=== PATIENT | female | born 1965 | race Caucasian/White ===

== ENCOUNTER 2024-03-03 21:50 | Inpatient (IN) | payer MEDICARE, MEDICAID, SELFPAY ==
--- NOTE | ~2024-03-03 | CT_ITS ---
EXAMINATION: CT ANGIOGRAM CHEST CLINICAL INFORMATION: Hypoxia. Evaluate for pulmonary embolism. COMPARISON: None available. TECHNIQUE: Multiple axial images were obtained through the chest after the administration of 65 mL of Omnipaque 350 intravenous contrast. Extensive vascular post-processing including two-dimensional and three-dimensional reformatted images were created and reviewed on an independent workstation. This CT examination was performed using dose optimization techniques as appropriate, variously including the following: *Automated exposure control *Adjustment of mA and/or kV according to patient size (this includes techniques or standardized protocols for targeted exams where dose is matched to indication/reason for exam; i.e. extremities or head) *Use of iterative reconstruction technique DLP: 365 mGy-cm FINDINGS: QUALITY OF STUDY/CONTRAST BOLUS: Satisfactory. PULMONARY ARTERIES: No pulmonary emboli. THORACIC AORTA: No thoracic aortic dilatation or dissection. LUNG: No focal consolidation, nodules or masses. PLEURA: No pleural effusion or pneumothorax. MEDIASTINUM: Normal heart size. No pericardial effusion. No hilar or mediastinal lymphadenopathy. No evidence of septal bowing or right heart strain. CORONARY ARTERY CALCIFICATION: None visualized on this study. CHEST WALL/AXILLA: No axillary or internal mammary lymphadenopathy. OSSEOUS STRUCTURES: No acute or suspicious osseous abnormality. UPPER ABDOMEN: Hepatic parenchymal hypoattenuation, consistent with diffuse steatosis. The remaining visualized upper abdominal structures are grossly unremarkable. No reflux of contrast into the hepatic veins to suggest elevated right heart pressures. CT/CT angio chest PE protocol IMPRESSION: 1. No CT angiographic evidence of acute pulmonary embolism. 2. No pulmonary nodule, mass, or airspace consolidation. 3. Hepatic steatosis. VTE: Negative. Fleischner guidelines were followed. Electronically signed by: Rodrigo Sharma MD 03/08/2024 02:32 PM [facility]
[2024-03-03 21:54] VITALS: BP 186/90; PULSE 104; RESP 19; TEMP 36.4; O2SAT 94
[2024-03-03 21:55] VITALS: BP 131/84; PULSE 109; O2SAT 93
[2024-03-03 22:01] VITALS: BP 143/96; PULSE 107; RESP 20; TEMP 37.2; O2SAT 98; BMI 36.9
--- NOTE | 2024-03-03 22:54 | PC.NURSE ---
update: sitter at bedside, pt changed over into pod attire, belongings removed from pt. Gema galvez given report and updated on pt status. Pt was able to mumble that she has been medicated all day with ativan. Phenobarb not given per report from [facility]. via [facility] care team. pt is SI, wanting to to be with her son who passed one year ago from Fentanly overdose. Pt drinking heavy and tried to detox, new dx of liver issues and pt states she just wants to go now.
[2024-03-03 22:55] LABS: MANUAL DIFF FLAG NO
[2024-03-03 22:56] LABS: Basophils Absolute Auto 0.1 X10*3/uL (0.0-0.2); Basophils Percent Auto 0.7 % (0-2); Eosinophils Absolute Auto 0.2 X10*3/uL (0.0-0.4); Eosinophils Percent Auto 2.4 % (0-4); Hematocrit 48.5 % (37.0-47.0); Hemoglobin 16.7 g/dl (12.0-16.0); Imm Gran Abs Auto 0.02 X10*3/uL (0.00-0.03); Imm Gran Pct Auto 0.2 % (0.0-0.4); Lymphocytes Absolute Auto 1.8 X10*3/uL (1.2-4.9); Mean Corpuscular HGB Conc 34.4 g/dl (31.0-35.0); Mean Corpuscular Hemoglobin 34.2 pg (27.0-33.0); Mean Corpuscular Volume 99.4 fL (80.0-98.0); Mean Platelet Volume 9.6 fL (9.4-12.3); Monocytes Absolute Auto 0.8 X10*3/uL (0.1-1.2); Monocytes Percent Auto 8.8 % (2-11); Neutrophils Absolute Auto 5.7 x10*3/uL (2.0-8.3); Neutrophils Percent Auto 66.9 % (45-73); Platelet Count 250 X10*3/uL (160-400); Red Blood Count 4.88 X10*6/uL (4.20-5.50); Red Cell Distribution Width 12.4 % (11.0-16.0); White Blood Count 8.5 X10*3/uL (4.8-10.8)
--- NOTE | 2024-03-03 23:10 | PC.NURSE ---
hand off to lenny castillo. sitter remains at bedside
[2024-03-03 23:11] LABS: Alanine Aminotransferase 102 U/L (0-31); Albumin Level 4.4 g/dL (3.5-5.0); Alkaline Phosphatase 105 U/L (39-117); Anion Gap 16 (12-20); Aspartate Amino Transferase 59 U/L (5-31); Bilirubin Direct 0.2 mg/dL (0.0-0.5); Bilirubin Total 0.6 mg/dL (0.0-1.0); Blood Urea Nitrogen 13 mg/dL (9-16); Calcium 9.3 mg/dL (8.4-10.2); Carbon Dioxide 24 mmol/L (22-29); Chloride 107 mmol/L (96-108); Creatinine Clr Calc Pharmacy 98.3; Estimated Glomerular Filt Rate > 60; Ethanol < 10 mg/dL; Glucose Random 125 mg/dL (60-115); Potassium 4.1 mmol/L (3.3-5.1); Sodium 143 mmol/L (135-145); Total Protein 7.3 g/dL (6.5-8.0)
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
--- OUTSIDE RECORDS SUMMARY | 2024-03-03 23:32 | XMS_ITS | Continuity of Care Document ---
Author Organization [facility] Address [address] [place] [address]- Care Team Providers Care Press Tender Name Role Phone Gen BROWN, Claribel Primary Care Physician [phone] Encounter [facility] Date(s): 01/22/22 - 02/21/22 [facility] [address] [place] [address]- Allergies, Adverse Reactions, Alerts No Known Allergies [...] 11 Refills, Maintenance, 08/22/20 13:04:00 EDT, Solution, [facility]/pharmacy #[id number], 3 mL Inhalation 4 times a day,PRN:Whe... Start Date: 08/22/20 Status: Ordered Breo Ellipta 100 mcg-25 mcg/inh inhalation powder 1 puffs, Inhalation, Daily, [employer]WARDS., # 60 each, 1 Refills, [id number], 30, INHALE 1 PUFF BY MOUTH EVERY DAY. [employer]WARDS., 170, cm, 03/07/21 11:09:00 EDT, Height, 107.3, kg, 06/22/20 13:29:00 EST, Dry Weight Start Date: 11/12/21 Status: Ordered diclofenac 1% topical gel = 2 Gm, Topically, 2 times a day, # 100 Gm, 2 Refills, 01/22/22 17:37:00 EDT, [facility] #[id number], 24, 2 Gm Topically 2 times a day, 170, cm, 03/07/21 11:09:00 EDT, Height, 107.3, kg, 06/22/20 13:29:00 EST, Dry Weight Start Date: 01/22/22 Status: Ordered duloxetine 30 mg oral enteric coated capsule 1 capsule = 30 mg, By Mouth, 2 times a day, do not crush or chew, # 180 capsule, 3 Refills, Maintenance, 02/19/22 14:28:00 EDT, [facility] #[id number], 170, cm, 03/07/21 11:09:00 EDT, Height, 107.3, kg, 06/22/20 13:29:00 EST, Dry Weight Start Date: 02/19/22 Status: Ordered famotidine 20 mg oral tablet 20 mg, 1, tablet, By Mouth, Daily, OV 5-6-20, # 30 tablet, Refills 5, Tot. Refills 5, Maintenance, 08/21/20 12:25:00 EDT, Route to Pharmacy Electronically, [facility]/pharmacy #[id number], 170, cm, 08/16/20 15:32:00 EDT, Height, 107.3, kg, 06/22/20 13:29:00 EST, D... Start Date: 08/21/20 Status: Ordered gabapentin 300 mg oral capsule 300 mg, 1, capsule, By Mouth, 3 times a day, # 270 capsule, Refills 1, Tot. Refills 1, Maintenance,08/21/21 14:14:00 EDT, Route to Pharmacy Electronically, [facility] #[id number], Partial fill upon patient request, 170, cm, 03/07/21 11:09:00 EDT... Start Date: 08/21/21 Status: Ordered gabapentin 300 mg oral capsule 300 mg, 1, capsule, By Mouth, 3 times a day, # 270 capsule, Refills 3, Tot. Refills 3, Maintenance,02/19/22 14:28:00 EDT, Route to Pharmacy Electronically, [facility] #[id number], Partial fill upon patient request, 170, cm, 03/07/21 11:09:00 EDT... Start Date: 02/19/22 Status: Ordered hydroxychloroquine 200 mg oral tablet 1, tablet, By Mouth, 2 times a day, # 60 tablet, Refills 5, Route to Pharmacy Electronically, [id number], 170, cm, 03/07/21 11:09:00 EDT, Height, 107.3, kg, 06/22/20 13:29:00 EST, Dry Weight Start Date: 12/12/21 Status: Ordered naloxone 4 mg/0.1 mL nasal spray = 4 mg, Naris, Right, Once, # 2 each, 0 Refills, Soft Stop, 05/20/18 8:45:10 EST Start Date: 05/20/18 Status: Ordered ProAir HFA 90 mcg/inh inhalation aerosol 2 puffs, Inhalation, Every 4 to 6 hours, PRN NEEDED FOR SHORTNESS OF BREATH OR WHEEZING, # 18 each, 1 Refills, [id number], 20, INHALE 2 PUFFS BY MOUTH EVERY 4 TO 6 HOURS NEEDED FOR SHORTNESS OF BREATH OR WHEEZING, 170, cm, 03/07/21 11:09:00... Start Date: 11/12/21 Status: Ordered risperiDONE 1 mg oral tablet 1 mg, 1, tablet, By Mouth, Daily, # 90 tablet, Refills 3, Tot. Refills 3, Maintenance, 02/19/22 14:27:00 EDT, Route to Pharmacy Electronically, [facility] #[id number], 170, cm, 03/07/21 11:09:00EDT, Height, 107.3, kg, 06/22/20 13:29:00 EST, Dry... Start Date: 02/19/22 Stop Date: 02/14/23 Status: Ordered Suboxone 8 mg-2 mg Sublingual Film 1 film, Sublingual, 3 times a day, dissolve under the tongue, # 90 film, 1 Refills, Maintenance, 02/08/22 13:04:00 EDT, [facility] #[id number], Partial fill upon patient request if the prescription is for a schedule II opioid drug. [facility] [id number],... Start Date: 02/08/22 Stop Date: 04/09/22 Status: Ordered Suboxone 8 mg-2 mg Sublingual Film 1 film, Sublingual, 3 times a day, dissolve under the tongue, # 90 film, 1 Refills, Maintenance, 12/10/21 14:40:00 EDT, [facility] #[id number], Partial fill upon patient request if the prescription is for a schedule II opioid drug. [facility] [id number],... Start Date: 12/10/21 Stop Date: 02/08/22 Status: Ordered Suboxone 8 mg-2 mg sublingual film 3 film, Sublingual, Daily, [id number], # 90 film, 1 Refills, Maintenance, 10/21/21 9:55:00 EDT, [facility] #[id number], 3 film Sublingual Daily,x30 days,Instr:[id number], 170, cm, 03/07/21 11:09:00 EDT, Height, 107.3, kg, 06/22/20 13:29:00 EST, Dry... Start Date: 10/21/21 Stop Date: 12/20/21 Status: Ordered traZODone 50 mg oral tablet 50 mg, 1, tablet, By Mouth, Daily at bedtime, PRN, as needed, # 90 tablet, Refills 3, Tot. Refills 3, Maintenance, Sleep, 02/19/22 14:27:00 EDT, Route to Pharmacy Electronically, [facility][id number], 170, cm, 03/07/21 11:09:00 EDT, Height, 107... Start Date: 02/19/22 Status: Ordered Vitamin D3 1000 intl units oral tablet 1 tablet = 1,000 International_Units, By Mouth, Daily, # 30 tablet, 11 Refills, Maintenance, 10/04/19 11:54:00 EDT, Tablet, [facility]/pharmacy #[id number], 163, cm, 10/04/19 11:27:00 EDT, Height, [...] on: 09/29/14 Sex Patient Care team information Personnel Name: Claribel Blevins NP Address: Address: [address] [place] [id number]
--- OUTSIDE RECORDS SUMMARY | 2024-03-03 23:32 | XMS_ITS | Continuity of Care Document ---
Author Organization [facility] [place] Address [address] [place] [address]- Care Team Providers Care Veneer Clipper Name Role Phone Angela BROWN, Robyn Martinez Primary Care Physician Encounter [facility] Date(s): 12/29/19 - 01/28/20 [facility] [place] [address] [place] [address]- [facility] Allergies, Adverse Reactions, Alerts Substance Reaction Severity [...]
--- OUTSIDE RECORDS SUMMARY | 2024-03-03 23:32 | XMS_ITS | Continuity of Care Document ---
Author Organization [facility] Primary Car e [place] Address [address] [place] [address]- Care Team Providers Care Carpet Inspector Name Role Phone Roxi BROWN, Compa Hall Primary Care Physician Encounter [facility] Date(s): 10/28/23 - 11/27/23 [facility] [place] [address] [place] [address]- Allergies, Adverse Reactions, Alerts No Known Allergies [...] 11 Refills, Maintenance, 03/25/23 12:53:00 EST, Solution, [email or web address] #[id number], 3 mL Inhalation 4 times a da... Start Date: 03/25/23 Status: Ordered amoxicillin-clavulanate 875 mg-125 mg oral tablet 1 tablet, By Mouth, Every 12 hours, for 10 days, # 20 tablet, 0 Refills, Acute 12/06/23 7:37:00 EDT, 11/26/23 7:37:00 EDT, Tablet, [email or web address] #[id number], Partial fill upon patient request if the prescription is for a schedule II opioid drug., 17... Start Date: 11/26/23 Stop Date: 12/06/23 Status: Ordered Breo Ellipta 100 mcg-25 mcg/inh inhalation powder 1 puffs, Inhalation, Daily, [employer]., # 1 each, 3 Refills, 11/21/22 10:33:00 EDT, [facility] #[id number], 1 puffs Inhalation Daily,Instr:[employer]WAR[employer]., 170, cm, 11/19/2313:19:00 EDT, Height, 94.4, kg, 11/08/22 14:35:00 E... Start Date: 11/21/22 Status: Ordered calcium (as citrate)-vitamin D 315 mg-250 intl units oral tablet 2 tablet, By Mouth, 2 times a day, # 120 tablet, 11 Refills, Maintenance, 10/27/23 11:47:00 EDT, Tablet, [facility] #[id number], Partial fill upon patient request if the [...] 09/18/23 10:13:00 EDT, Route to Pharmacy Electronically, [facility] #[id number], Partial... Start Date: 09/18/23 Stop Date: 03/16/24 Status: Ordered duloxetine 30 mg oral enteric coated capsule 1 capsule = 30 mg, By Mouth, 2 times a day, do not crush or chew, # 180 capsule, 3 Refills, Maintenance, 12/20/22 17:50:00 EDT, [facility] #[id number], 170, cm, 12/06/22 0:43:00 EDT, Height, 94.4, kg, 11/08/22 14:35:00 EDT, Dry Weight Start Date: 12/20/22 Status: Ordered gabapentin 300 mg oral capsule 300 mg, 1, capsule, By Mouth, 3 times a day, # 270 capsule, Refills 1, Tot. Refills 1, Maintenance,08/11/23 9:29:00 EDT, Route to Pharmacy Electronically, [facility] #[id number], Partial fill upon patient request, 170, cm, 07/23/23 16:32:00 EDT,... Start Date: 08/11/23 Status: Ordered hydroxychloroquine 200 mg oral tablet 1, tablet, By Mouth, 2 times a day, # 60 tablet, Refills 5, Tot. Refills 5, 04/15/23 13:55:00 EST, Route to Pharmacy Electronically, [facility] #[id number], 170, cm, 01/31/23 10:06:00 EDT, Height, 94.4, kg, 11/08/22 14:35:00 EDT, Dry Weight Start Date: 04/15/23 Status: Ordered hydrOXYzine hydrochloride 25 mg oral tablet See Instructions, TAKE 1 TABLET BY MOUTH TWICE DAILY NEEDED FOR ANXIETY, # 60 tablet, 5 Refills,Maintenance, 09/18/23 10:13:00 EDT, [facility] #[id number], 170, cm, 07/23/23 16:32:00 EDT, Height, 100, kg, 04/20/23 21:48:00 EST, Dry Weight Start Date: 09/18/23 Status: Ordered NEBULIZER MACHINE AND TUBING NEBULIZER MACHINE AND TUBING, See Instructions, PRN Wheezing/Shortness of Breath, # 1 each, Refills0, Tot. Refills 0, Maintenance, USE NEEDED FOR WHEEZING DX:, 06/17/23 15:49:00 EST, Supply Start Date: 06/17/23 Status: Ordered PHENobarbital 30 mg oral tablet 1 tablet = 30 mg, By Mouth, 2 times a day, # 60 tablet, 1 Refills, Maintenance, 11/20/23 16:42:00 EDT, Tablet, [facility] #[id number], IF NOT COVERED, please use [employer] coupon and allow pt to pay OOP; $9.09; ASHLEY [id number]; [facility]; Group [address]; Membe... Start Date: 11/20/23 Status: Ordered predniSONE 10 mg oral tablet See Instructions, 4 tablets for 3 days 3 tabs for 3 days 2 tabs for 3 days 1 tab for 3 days, # 30 tablet, 0 Refills, Acute 12/11/23 7:37:00 EDT, 11/26/23 7:37:00 EDT, [facility] #[id number], Partial fill upon patient request if the prescriptio... Start Date: 11/26/23 Stop Date: 12/11/23 Status: Ordered risperiDONE 1 mg oral tablet 1 mg, 1, tablet, By Mouth, Daily, # 90 tablet, Refills 1, Tot. Refills 1, Maintenance, 08/11/23 9:29:00 EDT, Route to Pharmacy Electronically, [facility] #[id number], 170, cm, 07/23/23 16:32:00 EDT, Height, 100, kg, 04/20/23 21:48:00 EST, Dry Weight Start Date: 08/11/23 Stop Date: 02/07/24 Status: Ordered tiZANidine 2 mg oral tablet 2 mg, 1, tablet, By Mouth, 3 times a day, # 84 tablet, Refills 1, Tot. Refills 1, Maintenance, 09/08/23 18:10:00 EDT, Route to Pharmacy Electronically, [facility] #[id number], Partial fill upon patient request if the prescription is for a schedul... Start Date: 09/08/23 Stop Date: 11/03/23 Status: Ordered Trelegy Ellipta 200 mcg-62.5 mcg-25 mcg/inh inhalation powder 1 puffs, Inhalation, Daily, at the same time every day, # 3 each, 3 Refills, Maintenance, 07/23/23 16:56:00 EDT, Powder, [facility] #[id number], Partial fill upon patient request if the prescription is for a schedule II opioid drug., 1 puffs Inha... Start Date: 07/23/23 Stop Date: 07/17/24 Status: Ordered Ultram 50 mg oral tablet 1 tablet = 50 mg, By Mouth, Every 12 hours, PRN for pain, # 20 tablet, 0 Refills, Maintenance, 10/14/23 9:32:00 EDT, Tablet, [facility] #[id number], Partial fill upon patient request if the prescription is for a schedule II opioid drug., 170, cm,... Start Date: 10/14/23 Status: Ordered Ventolin HFA 108 mcg/inh inhalation aerosol with adapter 2 puffs, Inhalation, 4 times a day, PRN for wheezing, # 1 each, 3 Refills, Maintenance, 05/28/23 12:34:00 EST, Aerosol, [email or web address] #[id number], Partial fill upon patient request if the prescription is for a schedule II opioid drug., 170, cm, 04/04... Start Date: 05/28/23 Status: Ordered Voltaren Arthritis Pain 1% topical gel = 4 Gm, Topically, 4 times a day, # 480 Gm, 4 Refills, Maintenance, 07/24/23 14:31:00 EDT, [email or web address] #[id number], Partial fill upon patient request if the [...] Team Personnel Name: Compa Diane NP Position: [facility] Associate Professional Member Role: PCP Address: Address: [address] [facility] [place] [address]- Name: Blaire Iglesias [place] Position: [facility] Office Staff Member Role: Primary Care Nurse Name: Rhiannon Li [place] Position: [facility] Office Staff Member Role: Primary Care Nurse Name: Viral Jolly MD Position: [facility] Physician - Behavioral Health Member Role: Lifetime Consulting Physician Address: Address: [address] [place] [address]- Care Team Related Persons Name: MAIN MOSER Address: home [address] [place] [address] Name: JORGE GARCIA Address: home [address] [place] [address] Name: LOREE SIFUENTES
--- OUTSIDE RECORDS SUMMARY | 2024-03-03 23:32 | XMS_ITS | Continuity of Care Document ---
Author Organization [facility] Address [address] [place] [address]- Care Team Providers Care School Bus Monitor Name Role Phone Angela BROWN, Robyn Martinez Primary Care Physician Encounter [facility] Date(s): 03/22/20 - 05/18/20 [facility] [place] [address] [place] [address]- Attending Physician: [place], Milton Jones Allergies, Adverse Reactions, Alerts Substance Reaction Severity [...] 11 Refills, Maintenance, 05/31/19 17:40:00 EST, Solution, [facility]/pharmacy #[id number], 3 mL Inhalation 4 times a day,PRN:Whe... Start Date: 05/31/19 Status: Ordered Suboxone 8 mg-2 mg sublingual film 2.5 FILMS, Sublingual, Daily, [id number], # 75 film, 1 Refills, Maintenance, 04/26/20 16:38:00 EST, [facility] #[id number], 2.5 FILMS Sublingual Daily,Instr:[id number], 163, cm, 04/26/20 14:26:00 EST, Height, 105, kg, 03/01/19 17:26:00 EDT, Dry W... Start Date: 04/26/20 Status: Ordered Problem List Condition Effective Dates [...]
--- OUTSIDE RECORDS SUMMARY | 2024-03-03 23:32 | XMS_ITS | Continuity of Care Document ---
Author Organization [facility] Primary Car dennis Collinser Address [address] [place] [address]- Care Team Providers Care Manager Medical Name Role Phone Angela BROWN, Robyn Martinez Primary Care Physician Encounter [facility] Date(s): 06/29/20 - 07/29/20 [facility] [place] [address] [place] [address]- Attending Physician: AdmMaddie childs Admitting Physician: AdmtrMaddie Referring Physician: Admtr, Ar8 Allergies, Adverse Reactions, Alerts Substance Reaction Severity [...] a day,PRN:Whe... Start Date: 05/31/19 Status: Ordered ProAir HFA 90 mcg/inh inhalation aerosol 2 puffs, Inhalation, Every 4 to 6 hours, PRN NEEDED FOR WHEEZE FOR SHORTNESS OF BREATH, # 18 Unknown, 11 Refills, Maintenance, 06/19/20 16:07:00 EST, [id number], 20, INHALE 2 PUFFS BY MOUTH EVERY 4 TO 6 HOURS NEEDED FOR WHEEZE FOR SHORTNESS... Start Date: 06/19/20 Status: Ordered Suboxone 8 mg-2 mg sublingual film 2.5 FILMS, Sublingual, Daily, [id number], # 75 film, 1 Refills, Maintenance, 04/26/20 16:38:00 EST, [facility] #[id number], 2.5 FILMS Sublingual Daily,Instr:[id number], 163, cm, 04/26/20 14:26:00 EST, Height, 105, [...]
--- OUTSIDE RECORDS SUMMARY | 2024-03-03 23:32 | XMS_ITS | Continuity of Care Document ---
Author Organization [facility] Primary [place] Address [address] [place] [address]- Care Team Providers Care Cyber Incident Responder Name Role Phone Roxi ELECTRIC LOCOMOTIVE CRANE OPERATOR, Compa Hall Primary Care Physician Encounter [facility] Date(s): 04/07/23 - 05/07/23 [facility] [place] [address] [place] [address]- Allergies, Adverse Reactions, Alerts No Known Allergies [...] 11 Refills, Maintenance, 03/25/23 12:53:00 EST, Solution, [facility] #[id number], 3 mL Inhalation 4 times a da... Start Date: 03/25/23 Status: Ordered Breo Ellipta 100 mcg-25 mcg/inh inhalation powder 1 puffs, Inhalation, Daily, [employer]WARDS., # 1 each, 3 Refills, 11/21/22 10:33:00 EDT, [facility] #[id number], 1 puffs Inhalation Daily,Instr:RIN[employer] MOUTH AFTERWARDS., 170, cm, 11/19/2313:19:00 EDT, Height, 94.4, kg, 11/08/22 14:35:00 E... Start Date: 11/21/22 Status: Ordered cloNIDine 0.1 mg oral tablet 0.05 mg, 0.5, tablet, By Mouth, 4 times a day, PRN, stay hydrated, # 60 tablet, Refills 3, Tot. Refills 3, Maintenance, anxiety, panic, withdrawal symptoms, 03/25/23 12:52:00 EST, Route to Pharmacy Electronically, [facility] #[id number], Partial... Start Date: 03/25/23 Status: Ordered duloxetine 30 mg oral enteric coated capsule 1 capsule = 30 mg, By Mouth, 2 times a day, do not crush or chew, # 180 capsule, 3 Refills, Maintenance, 12/20/22 17:50:00 EDT, [facility] #[id number], 170, cm, 12/06/22 0:43:00 EDT, Height, 94.4, kg, 11/08/22 14:35:00 EDT, Dry Weight Start Date: 12/20/22 Status: Ordered gabapentin 300 mg oral capsule 300 mg, 1, capsule, By Mouth, 3 times a day, # 270 capsule, Refills 1, Tot. Refills 1, Maintenance,02/12/23 10:36:00 EDT, Route to Pharmacy Electronically, [facility] #[id number], Partial fill upon patient request, 170, cm, 01/31/23 10:06:00 EDT... Start Date: 02/12/23 Status: Ordered hydroxychloroquine 200 mg oral tablet 1, tablet, By Mouth, 2 times a day, # 60 tablet, Refills 5, Tot. Refills 5, 04/15/23 13:55:00 EST, Route to Pharmacy Electronically, [facility] #[id number], 170, cm, 01/31/23 10:06:00 EDT, Height, 94.4, kg, 11/08/22 14:35:00 EDT, Dry Weight Start Date: 04/15/23 Status: Ordered hydrOXYzine hydrochloride 25 mg oral tablet 1 tablet = 25 mg, By Mouth, Daily, PRN anxiety, for 30 days, # 30 tablet, 3 Refills, Acute 07/23/2411:53:00 EDT, 03/25/23 12:53:00 EST, Tablet, [facility] #[id number], Partial fill upon patientrequest if the prescription is for a schedule II op... Start Date: 03/25/23 Stop Date: 07/23/23 Status: Ordered risperiDONE 1 mg oral tablet 1 mg, 1, tablet, By Mouth, Daily, # 90 tablet, Refills 1, Tot. Refills 1, Maintenance, 02/12/23 10:37:00 EDT, Route to Pharmacy Electronically, [facility] #[id number], 170, cm, 01/31/23 10:06:00EDT, Height, 94.4, kg, 11/08/22 14:35:00 EDT, Dry W... Start Date: 02/12/23 Stop Date: 08/11/23 Status: Ordered Suboxone 8 mg-2 mg Sublingual Film 1 film, Sublingual, 3 times a day, dissolve under the tongue, # 90 film, 1 Refills, Maintenance, 03/14/23 10:32:00 EST, [facility] #[id number], Partial fill upon patient request if the prescription is for a schedule II opioid drug. [facility] [id number];... Start Date: 03/14/23 Stop Date: 05/13/23 Status: Ordered tiZANidine 2 mg oral tablet 2 mg, 1, tablet, By Mouth, 3 times a day, # 21 tablet, Refills 0, Tot. Refills 0, Maintenance, 04/22/23 9:05:00 EST, Route to Pharmacy Electronically, [facility] #[id number], Partial fill upon patient request if the prescription is for a schedule... Start Date: 04/22/23 Stop Date: 04/29/23 Status: Ordered Ventolin HFA 108 mcg/inh inhalation aerosol with adapter 2 puffs, Inhalation, 4 times a day, PRN for wheezing, # 18 Gm, 0 Refills, Maintenance, 04/17/23 15:20:00 EST, Aerosol, [facility] #[id number], Partial fill upon patient request if the prescription is for a schedule II opioid drug., 170, cm, 04/17... Start Date: 04/17/23 Status: Ordered Voltaren Arthritis Pain 1% topical gel = 4 Gm, Topically, 4 times a day, # 480 Gm, 4 Refills, Maintenance, 04/10/23 11:37:00 EST, [facility] #[id number], Partial fill upon patient request if the prescription is for a schedule II opioid drug., 4 Gm Topically 4 times a day, 170, cm, ... Start Date: 04/10/23 Status: Ordered [facility] PAIN RELIEVING LIDOCAINE PATCH 4% [facility] PAIN RELIEVING LIDOCAINE PATCH 4%, See Instructions, [...] Care team information Care Team Personnel Name: Roxi BROWN, Compa Hall Position: [facility] Associate Professional Member Role: PCP Address: Address: [address] [facility] [place] [address]- [place] Name: Blaire Iglesias [place] Position: [facility] RN Member Role: Primary Care Nurse Name: Rhiannon Gibson Position: [facility] RN Member Role: Primary Care Nurse Name: Viral Jolly MD Position: [facility] Physician - Behavioral Health Member Role: Lifetime Consulting Physician Address: Address: [address] [place] [id number]- Care Team Related Persons Name: MAIN MOSER Address: home [address] [place] [address] Name: JORGE GARCIA Address: [address] [place] [address] Name: LOREE SIFUENTES
--- OUTSIDE RECORDS SUMMARY | 2024-03-03 23:32 | XMS_ITS | Continuity of Care Document ---
Author Organization [facility] Primary [place] Address [address] [place] [address]- Care Team Providers Care Wrapper Leaf Inspector Name Role Phone Roxi BROWN, Compa Hall Primary Care Physician Encounter [facility] Date(s): 10/14/23 - 11/13/23 [facility] [place] [address] [place] [address]- Allergies, Adverse Reactions, Alerts No Known Allergies [...] 11 Refills, Maintenance, 03/25/23 12:53:00 EST, Solution, [facility] #[id number], 3 mL Inhalation 4 times a da... Start Date: 03/25/23 Status: Ordered Breo Ellipta 100 mcg-25 mcg/inh inhalation powder 1 puffs, Inhalation, Daily, RINSE MOUTH AFTERWARDS., # 1 each, 3 Refills, 11/21/22 10:33:00 EDT, [facility] #[id number], 1 puffs Inhalation Daily,Instr:RINSE MOUTH AFTERWARDS., 170, cm, 11/19/2313:19:00 EDT, Height, 94.4, kg, 11/08/22 14:35:00 E... Start Date: 11/21/22 Status: Ordered calcium (as citrate)-vitamin D 315 mg-250 intl units oral tablet 2 tablet, By Mouth, 2 times a day, # 120 tablet, 11 Refills, Maintenance, 10/27/23 11:47:00 EDT, Tablet, [facility] #[id number], Partial fill upon patient request if the [...] 09/18/23 10:13:00 EDT, Route to Pharmacy Electronically, [facility] #[id number], Partial... Start Date: 09/18/23 Stop Date: 03/16/24 Status: Ordered duloxetine 30 mg oral enteric coated capsule 1 capsule = 30 mg, By Mouth, 2 times a day, do not crush or chew, # 180 capsule, 3 Refills, Maintenance, 12/20/22 17:50:00 EDT, [facility] #[id number], 170, cm, 12/06/22 0:43:00 EDT, Height, 94.4, kg, 11/08/22 14:35:00 EDT, Dry Weight Start Date: 12/20/22 Status: Ordered gabapentin 300 mg oral capsule 300 mg, 1, capsule, By Mouth, 3 times a day, # 270 capsule, Refills 1, Tot. Refills 1, Maintenance,08/11/23 9:29:00 EDT, Route to Pharmacy Electronically, [facility] #[id number], Partial fill upon patient request, 170, cm, 07/23/23 16:32:00 EDT,... Start Date: 08/11/23 Status: Ordered hydroxychloroquine 200 mg oral tablet 1, tablet, By Mouth, 2 times a day, # 60 tablet, Refills 5, Tot. Refills 5, 04/15/23 13:55:00 EST, Route to Pharmacy Electronically, [facility] #[id number], 170, cm, 01/31/23 10:06:00 EDT, Height, 94.4, kg, 11/08/22 14:35:00 EDT, Dry Weight Start Date: 04/15/23 Status: Ordered hydrOXYzine hydrochloride 25 mg oral tablet See Instructions, TAKE 1 TABLET BY MOUTH TWICE DAILY NEEDED FOR ANXIETY, # 60 tablet, 5 Refills,Maintenance, 09/18/23 10:13:00 EDT, [facility] #[id number], 170, cm, 07/23/23 16:32:00 EDT, Height, 100, kg, 04/20/23 21:48:00 EST, Dry Weight Start Date: 09/18/23 Status: Ordered NEBULIZER MACHINE AND TUBING NEBULIZER MACHINE AND TUBING, See Instructions, PRN Wheezing/Shortness of Breath, # 1 each, Refills0, Tot. Refills 0, Maintenance, USE NEEDED FOR WHEEZING DX:, 06/17/23 15:49:00 EST, Supply Start Date: 06/17/23 Status: Ordered ofloxacin 0.3% ophthalmic solution 2 drops, Eyes, Both, 2 times a day, for 7 days, # 10 mL, 0 Refills, Acute 11/18/23 12:02:00 EDT, 11/11/23 12:02:00 EDT, Ophth Solution, [facility] #[id number], Partial fill upon patient request if the prescription is for a schedule II opioid drug... Start Date: 11/11/23 Stop Date: 11/18/23 Status: Ordered risperiDONE 1 mg oral tablet 1 mg, 1, tablet, By Mouth, Daily, # 90 tablet, Refills 1, Tot. Refills 1, Maintenance, 08/11/23 9:29:00 EDT, Route to Pharmacy Electronically, [facility] #[id number], 170, cm, 07/23/23 16:32:00 EDT, Height, 100, kg, 04/20/23 21:48:00 EST, Dry Weight Start Date: 08/11/23 Stop Date: 02/07/24 Status: Ordered Suboxone 8 mg-2 mg Sublingual Film 1 film, Sublingual, 3 times a day, for 14 days, dissolve under the tongue, # 42 film, 0 Refills, Hard Stop 11/25/23 9:01:00 EDT, 11/11/23 9:01:00 EDT, [facility] #[id number], Partial fill upon patient request if the prescription is for a schedule... Start Date: 11/11/23 Stop Date: 11/25/23 Status: Ordered tiZANidine 2 mg oral tablet 2 mg, 1, tablet, By Mouth, 3 times a day, # 84 tablet, Refills 1, Tot. Refills 1, Maintenance, 09/08/23 18:10:00 EDT, Route to Pharmacy Electronically, [facility] #[id number], Partial fill upon patient request if the prescription is for a schedul... Start Date: 09/08/23 Stop Date: 11/03/23 Status: Ordered Trelegy Ellipta 200 mcg-62.5 mcg-25 mcg/inh inhalation powder 1 puffs, Inhalation, Daily, at the same time every day, # 3 each, 3 Refills, Maintenance, 07/23/23 16:56:00 EDT, Powder, [facility] #[id number], Partial fill upon patient request if the prescription is for a schedule II opioid drug., 1 puffs Inha... Start Date: 07/23/23 Stop Date: 07/17/24 Status: Ordered Ultram 50 mg oral tablet 1 tablet = 50 mg, By Mouth, Every 12 hours, PRN for pain, # 20 tablet, 0 Refills, Maintenance, 10/14/23 9:32:00 EDT, Tablet, [facility] #[id number], Partial fill upon patient request if the prescription is for a schedule II opioid drug., 170, cm,... Start Date: 10/14/23 Status: Ordered Ventolin HFA 108 mcg/inh inhalation aerosol with adapter 2 puffs, Inhalation, 4 times a day, PRN for wheezing, # 1 each, 3 Refills, Maintenance, 05/28/23 12:34:00 EST, Aerosol, [facility] #[id number], Partial fill upon patient request if the prescription is for a schedule II opioid drug., 170, cm, 04/04... Start Date: 05/28/23 Status: Ordered Voltaren Arthritis Pain 1% topical gel = 4 Gm, Topically, 4 times a day, # 480 Gm, 4 Refills, Maintenance, 07/24/23 14:31:00 EDT, [facility] #[id number], Partial fill upon patient request if the prescription is for a schedule II opioid drug., 4 Gm Topically 4 times a day, 170, cm, ... Start Date: 07/24/23 Status: Ordered [facility] PAIN RELIEVING LIDOCAINE PATCH 4% WALAorTx PAIN RELIEVING LIDOCAINE PATCH 4%, See Instructions, [...] Personnel Name: Roxi BROWN, Compa Hall Position: [facility] PCO Associate Professional Member Role: PCP Address: Address: [address] [facility] [place] [address]- [place] Name: Blaire Iglesias [place] Position: [facility] Amb Office Staff Member Role: Primary Care Nurse Name: Rhiannon Li [place] Position: [facility] Office Staff Member Role: Primary Care Nurse Name: Viral Jolly MD Position: [facility] Physician - Behavioral Health Member Role: Lifetime Consulting Physician Address: Address: [address] [place] [address]- Care Team Related Persons Name: MAIN MOSER Address: home [address] [place] [address] Name: JORGE GARCIA Address: home [address] [place] [address] Name: LOREE SIFUENTES
--- OUTSIDE RECORDS SUMMARY | 2024-03-03 23:32 | XMS_ITS | Continuity of Care Document ---
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 Start Date: 06/19/20 Status: Ordered Suboxone 8 mg-2 mg sublingual film 2.5 FILMS, Sublingual, Daily, [id number], # 75 film, 1 Refills, Maintenance, 04/26/20 16:38:00 EST, [facility] #[id number], 2.5 FILMS Sublingual Daily,Instr:[id number], 163, cm, 04/26/20 14:26:00 EST, Height, 105, [...]
--- OUTSIDE RECORDS SUMMARY | 2024-03-03 23:33 | XMS_ITS | Continuity of Care Document ---
Author Organization [facility] [place] Address [address] [place] [address]- Care Team Providers Care Wick Tender Name Role Phone Fine RAT CULTURIST, Compa Hall Primary Care Physician Encounter [facility] Date(s): 11/12/23 - 12/12/23 [facility] [place] [address] [place] [address]- Attending Physician: Admnaz, Maddie Admitting Physician: Admtr, [id number] Referring Physician: Admtr, Ar8 Allergies, Adverse Reactions, Alerts No Known Allergies [...] 11 Refills, Maintenance, 03/25/23 12:53:00 EST, Solution, [facility] #[id number], 3 mL Inhalation 4 times a da... Start Date: 03/25/23 Status: Ordered Breo Ellipta 100 mcg-25 mcg/inh inhalation powder 1 puffs, Inhalation, Daily, RINSE MOUTH AFTERWARDS., # 1 each, 3 Refills, 11/21/22 10:33:00 EDT, [facility] #[id number], 1 puffs Inhalation Daily,Instr:RINSE MOUTH AFTERWARDS., 170, cm, 11/19/2313:19:00 EDT, Height, 94.4, kg, 11/08/22 14:35:00 E... Start Date: 11/21/22 Status: Ordered calcium (as citrate)-vitamin D 315 mg-250 intl units oral tablet 2 tablet, By Mouth, 2 times a day, # 120 tablet, 11 Refills, Maintenance, 10/27/23 11:47:00 EDT, Tablet, [facility] #[id number], Partial fill upon patient request if the [...] 09/18/23 10:13:00 EDT, Route to Pharmacy Electronically, [facility] #[id number], Partial... Start Date: 09/18/23 Stop Date: 03/16/24 Status: Ordered duloxetine 30 mg oral enteric coated capsule 1 capsule = 30 mg, By Mouth, 2 times a day, do not crush or chew, # 180 capsule, 3 Refills, Maintenance, 12/20/22 17:50:00 EDT, [facility] #[id number], 170, cm, 12/06/22 0:43:00 EDT, Height, 94.4, kg, 11/08/22 14:35:00 EDT, Dry Weight Start Date: 12/20/22 Status: Ordered gabapentin 300 mg oral capsule 300 mg, 1, capsule, By Mouth, 3 times a day, # 270 capsule, Refills 1, Tot. Refills 1, Maintenance,08/11/23 9:29:00 EDT, Route to Pharmacy Electronically, [facility] #[id number], Partial fill upon patient request, 170, cm, 07/23/23 16:32:00 EDT,... Start Date: 08/11/23 Status: Ordered hydroxychloroquine 200 mg oral tablet 1, tablet, By Mouth, 2 times a day, # 60 tablet, Refills 5, Tot. Refills 5, 04/15/23 13:55:00 EST, Route to Pharmacy Electronically, [facility] #[id number], 170, cm, 01/31/23 10:06:00 EDT, Height, 94.4, kg, 11/08/22 14:35:00 EDT, Dry Weight Start Date: 04/15/23 Status: Ordered hydrOXYzine hydrochloride 25 mg oral tablet See Instructions, TAKE 1 TABLET BY MOUTH TWICE DAILY NEEDED FOR ANXIETY, # 60 tablet, 5 Refills,Maintenance, 09/18/23 10:13:00 EDT, [facility] #[id number], 170, cm, 07/23/23 16:32:00 EDT, Height, 100, kg, 04/20/23 21:48:00 EST, Dry Weight Start Date: 09/18/23 Status: Ordered NEBULIZER MACHINE AND TUBING NEBULIZER MACHINE AND TUBING, See Instructions, PRN Wheezing/Shortness of Breath, # 1 each, Refills0, Tot. Refills 0, Maintenance, USE NEEDED FOR WHEEZING DX:, 06/17/23 15:49:00 EST, Supply Start Date: 06/17/23 Status: Ordered NuLYTELY Lemon Elem oral powder for reconstitution 240 mL, By Mouth, Every 10 minutes, # 1 each, 0 Refills, Maintenance, 12/03/23 9:52:00 EDT, REC Powder, [facility] #[id number], Partial fill upon patient request if the prescription is for a schedule II opioid drug., 170, cm, 11/26/23 7:18:00 EDT... Start Date: 12/03/23 Status: Ordered PHENobarbital 30 mg oral tablet 1 tablet = 30 mg, By Mouth, 2 times a day, # 60 tablet, 1 Refills, Maintenance, 11/20/23 16:42:00 EDT, Tablet, [facility] #[id number], IF NOT COVERED, please use [employer] coupon and allow pt to pay OOP; $9.09; ASHLEY [id number]; [employer]; [employer] [address]; Membe... Start Date: 11/20/23 Status: Ordered risperiDONE 1 mg oral tablet 1 mg, 1, tablet, By Mouth, Daily, # 90 tablet, Refills 1, Tot. Refills 1, Maintenance, 08/11/23 9:29:00 EDT, Route to Pharmacy Electronically, [facility] #[id number], 170, cm, 07/23/23 16:32:00 EDT, Height, 100, kg, 04/20/23 21:48:00 EST, Dry Weight Start Date: 08/11/23 Stop Date: 02/07/24 Status: Ordered tiZANidine 2 mg oral tablet 2 mg, 1, tablet, By Mouth, 3 times a day, # 84 tablet, Refills 1, Tot. Refills 1, Maintenance, 09/08/23 18:10:00 EDT, Route to Pharmacy Electronically, [facility] #[id number], Partial fill upon patient request if the prescription is for a schedul... Start Date: 09/08/23 Stop Date: 11/03/23 Status: Ordered Trelegy Ellipta 200 mcg-62.5 mcg-25 mcg/inh inhalation powder 1 puffs, Inhalation, Daily, at the same time every day, # 3 each, 3 Refills, Maintenance, 07/23/23 16:56:00 EDT, Powder, [facility] #[id number], Partial fill upon patient request if the prescription is for a schedule II opioid drug., 1 puffs Inha... Start Date: 07/23/23 Stop Date: 07/17/24 Status: Ordered Ultram 50 mg oral tablet 1 tablet = 50 mg, By Mouth, Every 12 hours, PRN for pain, # 20 tablet, 0 Refills, Maintenance, 10/14/23 9:32:00 EDT, Tablet, [facility] #[id number], Partial fill upon patient request if the prescription is for a schedule II opioid drug., 170, cm,... Start Date: 10/14/23 Status: Ordered Ventolin HFA 108 mcg/inh inhalation aerosol with adapter 2 puffs, Inhalation, 4 times a day, PRN for wheezing, # 1 each, 3 Refills, Maintenance, 05/28/23 12:34:00 EST, Aerosol, [facility] #[id number], Partial fill upon patient request if the prescription is for a schedule II opioid drug., 170, cm, 04/04... Start Date: 05/28/23 Status: Ordered Voltaren Arthritis Pain 1% topical gel = 4 Gm, Topically, 4 times a day, # 480 Gm, 4 Refills, Maintenance, 07/24/23 14:31:00 EDT, [facility] #[id number], Partial fill upon patient request if the prescription is for a schedule II opioid drug., 4 Gm Topically 4 times a day, 170, cm, ... Start Date: 07/24/23 Status: Ordered [facility] PAIN RELIEVING LIDOCAINE PATCH 4% [id number] PAIN RELIEVING LIDOCAINE PATCH 4%, See Instructions, [...] Personnel Name: Roxi BROWN, Compa Hall Position: [facility] PCO Associate Professional Member Role: PCP Address: Address: [address] [facility] [place] [address]- [place] Name: Blaire Iglesias [place] Position: [facility] Amb Office Staff Member Role: Primary Care Nurse Name: Rhiannon Li [place] Position: [facility] Amb Office Staff Member Role: Primary Care Nurse Name: Viral Jolly MD Position: [facility] Physician - Behavioral Health Member Role: Lifetime Consulting Physician Address: Address: [address] [place] [address]- Care Team Related Persons Name: MAIN MOSER Address: home [address] [place] [address] Name: JORGE GARCIA Address: home [address] [place] [address] Name: LOREE SIFUENTES
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
--- OUTSIDE RECORDS SUMMARY | 2024-03-03 23:33 | XMS_ITS | Continuity of Care Document ---
Author Organization [facility] Primary [facility] [place] Address [address] [place] [address]- Care Team Providers Care Server Name Role Phone Roxi BROWN, Compa Hall Primary Care Physician Encounter [facility] Date(s): 11/06/22 - 12/06/22 [facility] [place] [address] [place] [address]- Allergies, Adverse Reactions, Alerts No Known Allergies Immunizations Given and Recorded Vaccine Date Status Refusal Reason SARS-CoV-2 (COVID-19) mRNA BNT-162b2 vac 09/08/20 Recorded SARS-CoV-2 (COVID-19) mRNA BNT-162h7 vac 08/18/20 Recorded pneumococcal 23-valent vaccine 10/21/16 Given tetanus-diphtheria toxoids (Td) 05/05/03 Recorded Not Given Vaccine Date Status Refusal Reason influenza virus vaccine, inactivated 03/02/19 Not Given Patient Refuses Medications acamprosate 333 mg oral delayed release tablet 2 tablet = 666 mg, By Mouth, 3 times a day, # 180 tablet, 2 Refills, Maintenance, 12/06/22 14:34:00EDT, CR Tablet, [facility] #[id number], Partial fill upon patient request if the prescription is for a schedule II opioid drug., 170, cm, 12/06/22... Start Date: 12/06/22 Stop Date: 03/06/23 Status: Ordered albuterol-ipratropium 3 mg-0.5 mg/3 ml inhalation solution 3 mL, Inhalation, 4 times a day, PRN Wheezing/Shortness of Breath, DX: J45.909 do not use ventolineand Nebs at the same time, # 90 mL, 11 Refills, Maintenance, 08/22/20 13:04:00 EDT, Solution, [id number], 3 mL Inhalation 4 times a day,PRN:Whe... Start Date: 08/22/20 Status: Ordered Breo Ellipta 100 mcg-25 mcg/inh inhalation powder 1 puffs, Inhalation, Daily, RINSE MOUTH AFTERWARDS., # 1 each, 3 Refills, 11/21/22 10:33:00 EDT, [facility] #[id number], 1 puffs Inhalation Daily,Instr:RINSE MOUTH AFTERWARDS., 170, cm, 11/19/2313:19:00 EDT, Height, 94.4, kg, 11/08/22 14:35:00 E... Start Date: 11/21/22 Status: Ordered cloNIDine 0.1 mg oral tablet 0.05 mg, 0.5, tablet, By Mouth, 4 times a day, PRN, # 60 tablet, Refills 1, Tot. Refills 1, Maintenance, anxiety, panic, withdrawal symptoms, 10/25/22 15:45:00 EDT, Route to Pharmacy Electronically, [facility] #[id number], Partial fill upon patie... Start Date: 10/25/22 Status: Ordered diclofenac 1% topical gel = 2 Gm, Topically, 2 times a day, # 100 Gm, 2 Refills, 11/29/22 12:21:00 EDT, [facility] #[id number], 25, 2 Gm Topically 2 times a day, 170, cm, 11/19/22 14:19:00 EDT, Height, 94.4, kg, 11/08/2313:35:00 EDT, Dry Weight Start Date: 11/29/22 Status: Ordered doxepin 3 mg oral tablet 1 tablet = 3 mg, By Mouth, Daily at bedtime, take within 30 minutes of bedtime and not within 3 hours of a meal, # 30 tablet, 1 Refills, Acute 04/03/23 9:00:00 EST, 10/25/22 15:39:00 EDT, Tablet, [facility] #[id number], Partial fill upon patient... Start Date: 10/25/22 Stop Date: 04/03/23 Status: Ordered duloxetine 30 mg oral enteric coated capsule 1 capsule = 30 mg, By Mouth, 2 times a day, do not crush or chew, # 180 capsule, 3 Refills, Maintenance, 02/19/22 14:28:00 EDT, [facility] #[id number], 170, cm, 03/07/21 11:09:00 EDT, Height, 107.3, kg, 06/22/20 13:29:00 EST, Dry Weight Start Date: 02/19/22 Status: Ordered famotidine 20 mg oral tablet 20 mg, 1, tablet, By Mouth, Daily, OV 5-6-20, # 30 tablet, Refills 5, Tot. Refills 5, Maintenance, 08/21/20 12:25:00 EDT, [id number] 170, cm, 08/16/20 15:32:00 EDT, Height, 107.3, kg, 06/22/20 13:29:00 EST, D... Start Date: 08/21/20 Status: Ordered gabapentin 300 mg oral capsule 300 mg, 1, capsule, By Mouth, 3 times a day, # 270 capsule, Refills 1, Tot. Refills 1, Maintenance,08/21/21 14:14:00 EDT, Route to Pharmacy Electronically, [facility] #[id number], Partial fill upon patient request, 170, cm, 03/07/21 11:09:00 EDT... Start Date: 08/21/21 Status: Ordered gabapentin 300 mg oral capsule 300 mg, 1, capsule, By Mouth, 3 times a day, # 270 capsule, Refills 3, Tot. Refills 3, Maintenance,02/19/22 14:28:00 EDT, Route to Pharmacy Electronically, [facility] #[id number], Partial fill upon patient request, 170, cm, 03/07/21 11:09:00 EDT... Start Date: 02/19/22 Status: Ordered hydroxychloroquine 200 mg oral tablet 1, tablet, By Mouth, 2 times a day, # 60 tablet, Refills 5, Tot. Refills 5, 05/16/22 16:23:00 EST, Route to Pharmacy Electronically, [facility] #[id number], 175, cm, 05/01/22 15:32:00 EST, Height, 75, kg, 05/01/22 15:32:00 EST, Dry Weight Start Date: 05/16/22 Status: Ordered naloxone 4 mg/0.1 mL nasal spray = 4 mg, Naris, Right, Once, # 2 each, 0 Refills, Soft Stop, 05/20/18 8:45:10 EST Start Date: 05/20/18 Status: Ordered predniSONE 20 mg oral tablet [...] 18 each, 3 Refills, 11/22/22 15:59:00 EDT, [facility] #[id number], 20, 2 puffs Inhalation Every 4 to6 hours,PRN: NEEDED FOR SHORTNESS OF BREATH OR WH... Start Date: 11/22/22 Status: Ordered ProAir HFA 90 mcg/inh inhalation aerosol 2 puffs, Inhalation, Every 4 to 6 hours, PRN NEEDED FOR SHORTNESS OF BREATH OR WHEEZING, # 18 Gm, 5 Refills, 03/20/22 16:08:00 EST, [facility] #[id number], 2 puffs Inhalation Every 4 to 6 hours,PRN: NEEDED FOR SHORTNESS OF BREATH OR WHEEZING... Start Date: 03/20/22 Status: Ordered risperiDONE 1 mg oral tablet 1 mg, 1, tablet, By Mouth, Daily, # 90 tablet, Refills 3, Tot. Refills 3, Maintenance, 02/19/22 14:27:00 EDT, Route to Pharmacy Electronically, [facility] #[id number], 170, cm, 03/07/21 11:09:00EDT, Height, 107.3, kg, 06/22/20 13:29:00 EST, Dry... Start Date: 02/19/22 Stop Date: 02/14/23 Status: Ordered Suboxone 8 mg-2 mg sublingual [...] tongue, # 90 film, 1 Refills, Maintenance, 11/14/22 10:32:00 EDT, [facility] #[id number], Partial fill upon patient request if the prescription is for a schedule II opioid drug. ALVINA [id number];... Start Date: 11/14/22 Stop Date: 01/13/23 Status: Ordered Vitamin D3 1000 intl units oral tablet 1 tablet = 1,000 International_Units, By Mouth, Daily, # 30 tablet, 11 Refills, Maintenance, 10/04/19 11:54:00 EDT, Tablet, [facility] #[id number], 163, cm, 10/04/19 11:27:00 EDT, Height, [...] Team Personnel Name: Compa Diane NP Position: [facility] PCO Associate Professional Member Role: PCP Address: Address: [address] [facility] [place] [address]- [place] Name: Blaire Iglesias [place] Position: [facility] RN Member Role: Primary Care Nurse Name: Rhiannon Gibson Position: [facility] RN Member Role: Primary Care Nurse Name: Viral Jolly MD Position: [facility] Physician - Behavioral Health Member Role: Lifetime Consulting Physician Address: Address: [address] [place] [address]- Care Team Related Persons Name: MAIN MOSER Address: home [address] [place] [address] Name: JORGE GARCIA Address: [address] [place] [address] Name: LOREE SIFUENTES
--- OUTSIDE RECORDS SUMMARY | 2024-03-03 23:33 | XMS_ITS | Continuity of Care Document ---
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 Start Date: 03/25/23 Status: Ordered Augmentin 875 mg-125 mg oral tablet 1 tablet, By Mouth, Every 12 hours, for 7 days, # 14 tablet, 0 Refills, Acute 04/24/23 15:20:00 EST, 04/17/23 15:20:00 EST, Tablet, [facility] #[id number], Partial fill upon patient request if the prescription is for a schedule II opioid drug., 1... Start Date: 04/17/23 Stop Date: 04/24/23 Status: Ordered Breo Ellipta 100 mcg-25 mcg/inh inhalation powder 1 puffs, Inhalation, Daily, [employer]., # 1 each, 3 Refills, 11/21/22 10:33:00 EDT, [facility] #[id number], 1 puffs Inhalation Daily,Instr:[employer]., 170, cm, 11/19/2313:19:00 EDT, Height, 94.4, kg, 11/08/22 14:35:00 E... Start Date: 11/21/22 Status: Ordered cloNIDine 0.1 mg oral tablet 0.05 mg, 0.5, tablet, By Mouth, 4 times a day, PRN, stay hydrated, # 60 tablet, Refills 3, Tot. Refills 3, Maintenance, anxiety, panic, withdrawal symptoms, 03/25/23 12:52:00 EST, Route to Pharmacy Electronically, [facility] #[id number], Partial... Start Date: 03/25/23 Status: Ordered cyclobenzaprine 10 mg oral tablet 10 mg, 1, tablet, By Mouth, 3 times a day, PRN, for 3 days, # 10 tablet, Refills 0, Tot. Refills 0,Acute 04/23/23 21:54:00 EST, for spasm, 04/20/23 21:54:00 EST, Route to Pharmacy Electronically, [facility] #[id number], Partial fill upon patient... Start Date: 04/20/23 Stop Date: 04/23/23 Status: Ordered duloxetine 30 mg oral enteric coated capsule 1 capsule = 30 mg, By Mouth, 2 times a day, do not crush or chew, # 180 capsule, 3 Refills, Maintenance, 12/20/22 17:50:00 EDT, [facility] #[id number], 170, cm, 12/06/22 0:43:00 EDT, Height, 94.4, kg, 11/08/22 14:35:00 EDT, Dry Weight Start Date: 12/20/22 Status: Ordered gabapentin 300 mg oral capsule 300 mg, 1, capsule, By Mouth, 3 times a day, # 270 capsule, Refills 1, Tot. Refills 1, Maintenance,02/12/23 10:36:00 EDT, Route to Pharmacy Electronically, [facility] #[id number], Partial fill upon patient request, 170, cm, 01/31/23 10:06:00 EDT... Start Date: 02/12/23 Status: Ordered hydroxychloroquine 200 mg oral tablet 1, tablet, By Mouth, 2 times a day, # 60 tablet, Refills 5, Tot. Refills 5, 04/15/23 13:55:00 EST, Route to Pharmacy Electronically, [facility] #[id number], 170, cm, 01/31/23 10:06:00 EDT, Height, 94.4, kg, 11/08/22 14:35:00 EDT, Dry Weight Start Date: 04/15/23 Status: Ordered hydrOXYzine hydrochloride 25 mg oral tablet 1 tablet = 25 mg, By Mouth, Daily, PRN anxiety, for 30 days, # 30 tablet, 3 Refills, Acute 07/23/2411:53:00 EDT, 03/25/23 12:53:00 EST, Tablet, [facility] #[id number], Partial fill upon patientrequest if the prescription is for a schedule II op... Start Date: 03/25/23 Stop Date: 07/23/23 Status: Ordered lidocaine 5% topical film 1 patch, Topically, Daily, PRN Pain , Mild, for 5 days, remove after 12 hours, # 5 patch, 0 Refills, Acute 04/25/23 21:54:00 EST, 04/20/23 21:54:00 EST, Film, [facility] #[id number], Partial fill upon patient request if the prescription is for a... Start Date: 04/20/23 Stop Date: 04/25/23 Status: Ordered MorPHINE Inj 4 mg, Injection, IV Push Slowly, Every 5 minutes for 3 doses/times, PRN for Pain , Moderate, and SBP greater than 100, Routine, 04/20/23 20:37:00 EST, Stop date Limited # of times Start Date: 04/20/23 Status: Ordered predniSONE 20 mg oral tablet 2 tablet = 40 mg, By Mouth, Daily, for 5 days, # 10 tablet, 0 Refills, Acute 04/22/23 15:21:00 EST,04/17/23 15:21:00 EST, Tablet, [facility] #[id number], Partial fill upon patient request if the prescription is for a schedule II opioid drug., 17... Start Date: 04/17/23 Stop Date: 04/22/23 Status: Ordered ProAir HFA 90 mcg/inh inhalation aerosol 2 puffs, Inhalation, Every 4 to 6 hours, PRN NEEDED FOR SHORTNESS OF BREATH OR WHEEZING, # 18 Gm, 5 Refills, 02/04/23 10:36:00 EDT, [facility] #[id number], 2 puffs Inhalation Every 4 to 6 hours,PRN: NEEDED FOR SHORTNESS OF BREATH OR WHEEZING... Start Date: 02/04/23 Status: Ordered risperiDONE 1 mg oral tablet 1 mg, 1, tablet, By Mouth, Daily, # 90 tablet, Refills 1, Tot. Refills 1, Maintenance, 02/12/23 10:37:00 EDT, Route to Pharmacy Electronically, [facility] #[id number], 170, cm, 01/31/23 10:06:00EDT, Height, 94.4, kg, 11/08/22 14:35:00 EDT, Dry W... Start Date: 02/12/23 Stop Date: 08/11/23 Status: Ordered Suboxone 8 mg-2 mg Sublingual Film 1 film, Sublingual, 3 times a day, dissolve under the tongue, # 90 film, 1 Refills, Maintenance, 03/14/23 10:32:00 EST, [facility] #[id number], Partial fill upon patient request if the prescription is for a schedule II opioid drug. ALVINA [id number];... Start Date: 03/14/23 Stop Date: 05/13/23 Status: Ordered Suboxone 8 mg-2 mg sublingual film 90 each, 0 Refill(s), DISSOLVE 1 FILM UNDER THE TONGUE THREE TIMES DAILY FOR 30 DAYS, 0 Refills, 11/19/22 13:51:00 EDT, Partial fill upon patient request if the prescription is for a schedule II opioid drug. Start Date: 11/19/22 Status: Ordered Toradol Inj 15 mg, Injection, IV Push Slowly, Once, STAT, 04/20/23 20:07:00 EST, Stop date 04/20/23 20:07:00 EST Start Date: 04/20/23 Stop Date: 04/20/23 Status: Completed Ventolin HFA 108 mcg/inh inhalation aerosol with adapter 2 puffs, Inhalation, 4 times a day, PRN for wheezing, # 18 Gm, 0 Refills, Maintenance, 04/17/23 15:20:00 EST, Aerosol, [facility] #[id number], Partial fill upon patient request if the prescription is for a schedule II opioid drug., 170, cm, 04/17... Start Date: 04/17/23 Status: Ordered Voltaren Arthritis Pain 1% topical gel = 4 Gm, Topically, 4 times a day, # 480 Gm, 4 Refills, Maintenance, 04/10/23 11:37:00 EST, [facility] #[id number], Partial fill upon patient request if the prescription is for a schedule II opioid drug., 4 Gm Topically 4 times a day, 170, cm, .. Start Date: 04/10/23 Status: Ordered Problem List Condition Confirmation Course [...] Urticaria Confirmed Active Varicose vein Confirmed Active Vital Signs Most recent to oldest [Reference Range]: 1 2 3 Height 170 cm (04/20/23 9:48 PM) 170 cm (04/20/23 9:43 PM) 170 cm (04/20/23 9:40 PM) Weight 100 kg (04/20/23 9:48 PM) 100 kg (04/20/23 9:43 PM) 100 kg (04/20/23 9:40 PM) Oxygen Saturation [94-100 %] 98 % (04/20/23 9:48 PM) 94 % (04/20/23 9:43 PM) 78 % *L* (04/20/23 9:40 PM) Pulse Rate [55-90 bpm] 99 bpm *H* (04/20/23 9:40 PM) 106 bpm *H* (04/20/23 7:33 PM) Body Mass Index [18.5-24.99 kg/m2] 34.6 kg/m2 *>HHI* (04/20/23 9:48 PM) 34.6 kg/m2 *>HHI* (04/20/23 9:43 PM) 34.6 kg/m2 *>HHI* (04/20/23 9:40 PM) Blood Pressure [90-138/55-84 mm Hg] 96/55mm Hg (04/20/23 9:40 PM) 120/77mm Hg (04/20/23 7:33 PM) Respiratory Rate [16-30 br/min] 16 br/min (04/20/23 9:40 PM) 18 br/min (04/20/23 8:54 PM) 18 br/min (04/20/23 8:53 PM) Temperature [96.8-100.4 DegF] 98.4 DegF (04/20/23 7:33 PM) Liters per Minute 2 L/min (04/20/23 9:48 PM) 2 L/min (04/20/23 9:43 PM) Mode of Delivery (Oxygen) Nasal cannula (04/20/23 9:48 PM) Room air (04/20/23 9:43 PM) Room air (04/20/23 9:40 PM) Blood pressure sites Arm, right (04/20/23 9:40 PM) Arm, left (04/20/23 7:33 PM) Temperature Route Oral (04/20/23 7:33 PM) Dry Weight 100 kg (04/20/23 9:48 PM) 100 kg (04/20/23 9:43 PM) 100 kg (04/20/23 9:40 PM) Weight Obtained Via Patient/family state d (04/20/23 7:34 PM) Dry Weight Obtained Via Patient/family s tated (04/20/23 7:34 PM) Social History Social History Type Response Smoking Status 10 or more cigarette s (1/2 pack or more)/day in last 30 days; Interested in cessation: No; Patient wants NRT during admission No;Never; Type: Cigarettes; Exposure to Secondhand Smoke: No; Tobacco user in household: Yes; Started at age: 8; entered on: 01/31/23 Sex Note * Adam KU, Joaquim Shell: PERFORM Event Display: Patient Education Leaflets Authored Date: [id number] Flank Pain with Uncertain Cause ?? [id number] Flank Pain with Uncertain Cause The flank is the area between your upper belly (abdomen) and your back. Pain there is often caused by a problem with your kidneys. It might be a kidney infection or a kidney stone. Other causes of flank pain include spinal arthritis, a pinched nerve from a back injury, a rib injury, a bruise, a back muscle strain, inflammation, or spasm. The cause of your flank pain is not certain. You may need other tests. Home care Follow these tips when caring for yourself at home: ??? You may use acetaminophen or ibuprofen to control pain, unless your healthcare provider prescribed another medicine. If you have chronic liver or kidney disease, talk with your provider before taking these medicines. Also talk with your provider first if you???ve ever had a stomach ulcer or digestive bleeding. ??? If the pain is coming from your muscles, you may get relief with ice or heat. During the first 2 days after the injury, put an ice pack on the painful area for 20 minutes every 2 to 4 hours. This will reduce swelling and pain. A hot shower, hot bath, or heating pad works well for a muscle spasm. You can start with ice, then switch to heat after 2 days. You might find that alternating ice and heat works well. Use the method that feels the best to you. ?? Follow-up care Follow up with your healthcare provider if your symptoms don???t get better over the next few days. ?? When to seek medical advice Call your healthcare provider right away??if any of these happen: ??? Repeated vomiting ??? Fever of 100.4??F (38??C) or higher, or as directed by your healthcare provider ??? Chills ??? Flank pain that gets worse ??? Pain that spreads to the front of your belly (abdomen) ??? Dizziness, weakness, or fainting ??? Blood in your urine ??? Burning feeling when you urinate or the need to urinate often??? Pain in one of your legs that gets worse ??? Numbness or weakness in a leg ?? Last Reviewed Date: 2021 ?? 5117-5561 [employer]. All rights reserved. This information is not intended as a substitute for professional medical care. Always follow your healthcare professional's instructions. ?? Patient Care team information Care Team Personnel Name: Roxi BROWN, Compa Hall Position: [facility] PCO Associate Professional Member Role: PCP Address: Address: [address] [place] [address] [place] [address]- Name: Blaire Iglesias [place] Position: [facility] RN Member Role: Primary Care Nurse Name: Rhiannon Gibson Position: [facility] RN Member Role: Primary Care Nurse Name: Viral Jolly MD Position: [facility] Physician - Behavioral Health Member Role: [employer] Consulting Physician Address: Address: [address] [place] [id number]- Name: Rupa Eckert Position: [facility] ED OA Member Role: Patient Care Provider Name: Adam KU, Joaquim Shell Position: [facility] Resident Member Role: Admitting Physician Address: Address: [address] [place] [id number]- Name: Leslie López Position: [facility] ED RN W/OE and Tasks Member Role: Patient Care Provider Care Team Related Persons Name: MAIN MOSER Address: home [address] [place] [address] Name: JORGE GARCIA Address: home [address] [place] [address] Name: LOREE SIFUENTES
--- OUTSIDE RECORDS SUMMARY | 2024-03-03 23:33 | XMS_ITS | Continuity of Care Document ---
Author Organization [facility] Address [address] [place] [address]- Care Team Providers Care Senior Informatica Etl Developer Name Role Phone Fine STEPHANIE, Compa Hall Primary Care Physician Encounter [facility] Date(s): 10/09/23 - 10/09/[address] [address]- Discharge Disposition: A-D/C Home Attending Physician: Omayra Ramirez MD Admitting Physician: Omayra Ramirez MD Referring Physician: Not on Staff, Referring MD Allergies, Adverse Reactions, Alerts No Known Allergies Immunizations Given and Recorded Vaccine Date Status Refusal Reason SARS-CoV-2 (COVID-19) mRNA BNT-162b2 vac 09/08/20 Recorded SARS-CoV-2 (COVID-19) mRNA BNT-162b2 vac 08/18/20 Recorded pneumococcal 23-valent vaccine 10/21/16 Given tetanus-diphtheria toxoids (Td) 05/05/03 Recorded Medications acamprosate 333 mg oral delayed release tablet 2 tablet = 666 mg, By Mouth, 3 times a day, # 180 tablet, 0 Refills, Maintenance, 09/25/23 10:55:00EDT, CR Tablet, Partial fill upon patient request if the prescription is for a schedule II opioid drug. Start Date: 09/25/23 Status: Ordered acetaminophen-oxyCODONE 325 mg-5 mg oral tablet 1, tablet, By Mouth, Every 6 hours, PRN, Causes sedation, do not drive or drink alcohol while taking., # 15 tablet, Refills 0, Tot. Refills 0, Acute, as needed for pain, 10/14/23 10:47:00 EDT, 10/09/23 10:47:00 EDT, Print Requisition, Tablet, Partial... Start Date: 10/09/23 Stop Date: 10/14/23 Status: Ordered albuterol-ipratropium 3 mg-0.5 mg/3 ml inhalation solution 3 mL, Inhalation, 4 times a day, PRN Wheezing/Shortness of Breath, DX: J45.909 do not use ventolineand Nebs at the same time, # 90 mL, 11 Refills, Maintenance, 03/25/23 12:53:00 EST, Solution, [facility] #[id number], 3 mL Inhalation 4 times a da... Start Date: 03/25/23 Status: Ordered Breo Ellipta 100 mcg-25 mcg/inh inhalation powder 1 puffs, Inhalation, Daily, RIN[employer]OU[employer] AFTERWARDS., # 1 each, 3 Refills, 11/21/22 10:33:00 EDT, [facility] #[id number], 1 puffs Inhalation Daily,Instr:RINSE MOUTH AFTERWARDS., 170, cm, 11/19/2313:19:00 EDT, Height, 94.4, kg, 11/08/22 14:35:00 E... Start Date: 11/21/22 Status: Ordered cloNIDine 0.1 mg oral tablet 0.05 mg, 0.5, tablet, By Mouth, 4 times a day, PRN, stay hydrated, # 120 tablet, Refills 5, Tot. Refills 5, Maintenance, anxiety, panic, withdrawal symptoms, 09/18/23 10:13:00 EDT, Route to Pharmacy Electronically, [facility] #[id number], Partial... Start Date: 09/18/23 Stop Date: 03/16/24 Status: Ordered duloxetine 30 mg oral enteric coated capsule 1 capsule = 30 mg, By Mouth, 2 times a day, do not crush or chew, # 180 capsule, 3 Refills, Maintenance, 12/20/22 17:50:00 EDT, [facility] #[id number], 170, cm, 12/06/22 0:43:00 EDT, Height, 94.4, kg, 11/08/22 14:35:00 EDT, Dry Weight Start Date: 12/20/22 Status: Ordered gabapentin 300 mg oral capsule 300 mg, 1, capsule, By Mouth, 3 times a day, # 270 capsule, Refills 1, Tot. Refills 1, Maintenance,08/11/23 9:29:00 EDT, Route to Pharmacy Electronically, [facility] #[id number], Partial fill upon patient request, 170, cm, 07/23/23 16:32:00 EDT,... Start Date: 08/11/23 Status: Ordered hydroxychloroquine 200 mg oral tablet 1, tablet, By Mouth, 2 times a day, # 60 tablet, Refills 5, Tot. Refills 5, 04/15/23 13:55:00 EST, Route to Pharmacy Electronically, [facility] #[id number], 170, cm, 01/31/23 10:06:00 EDT, Height, 94.4, kg, 11/08/22 14:35:00 EDT, Dry Weight Start Date: 04/15/23 Status: Ordered hydrOXYzine hydrochloride 25 mg oral tablet See Instructions, TAKE 1 TABLET BY MOUTH TWICE DAILY NEEDED FOR ANXIETY, # 60 tablet, 5 Refills,Maintenance, 09/18/23 10:13:00 EDT, [facility] #[id number], 170, cm, 07/23/23 16:32:00 EDT, Height, 100, kg, 04/20/23 21:48:00 EST, Dry Weight Start Date: 09/18/23 Status: Ordered NEBULIZER MACHINE AND TUBING NEBULIZER MACHINE AND TUBING, See Instructions, PRN Wheezing/Shortness of Breath, # 1 each, Refills0, Tot. Refills 0, Maintenance, USE NEEDED FOR WHEEZING DX:, 06/17/23 15:49:00 EST, Supply Start Date: 06/17/23 Status: Ordered Percocet-5/325 325 mg-5 mg oral tablet 1 tablet, Tablet, By Mouth, Once, PRN for Other, Pain, ALEJANDRA, 10/09/23 6:30:00 EDT Start Date: 10/09/23 Stop Date: 10/09/23 Status: Completed risperiDONE 1 mg oral tablet 1 mg, 1, tablet, By Mouth, Daily, # 90 tablet, Refills 1, Tot. Refills 1, Maintenance, 08/11/23 9:29:00 EDT, Route to Pharmacy Electronically, [facility] #[id number], 170, cm, 07/23/23 16:32:00 EDT, Height, 100, kg, 04/20/23 21:48:00 EST, Dry Weight Start Date: 08/11/23 Stop Date: 02/07/24 Status: Ordered Suboxone 8 mg-2 mg Sublingual Film 1 film, Sublingual, 3 times a day, dissolve under the tongue, # 90 film, 1 Refills, Maintenance, 09/12/23 9:01:00 EDT, [facility] #[id number], Partial fill upon patient request if the prescription is for a schedule II opioid drug. ALVINA [id number];... Start Date: 09/12/23 Stop Date: 11/11/23 Status: Ordered tiZANidine 2 mg oral tablet 2 mg, 1, tablet, By Mouth, 3 times a day, # 84 tablet, Refills 1, Tot. Refills 1, Maintenance, 09/08/23 18:10:00 EDT, Route to Pharmacy Electronically, [facility] #[id number], Partial fill upon patient request if the prescription is for a schedul... Start Date: 09/08/23 Stop Date: 11/03/23 Status: Ordered Trelegy Ellipta 200 mcg-62.5 mcg-25 mcg/inh inhalation powder 1 puffs, Inhalation, Daily, at the same time every day, # 3 each, 3 Refills, Maintenance, 07/23/23 16:56:00 EDT, Powder, [facility] #[id number], Partial fill upon patient request if the prescription is for a schedule II opioid drug., 1 puffs Inha... Start Date: 07/23/23 Stop Date: 07/17/24 Status: Ordered Ventolin HFA 108 mcg/inh inhalation aerosol with adapter 2 puffs, Inhalation, 4 times a day, PRN for wheezing, # 1 each, 3 Refills, Maintenance, 05/28/23 12:34:00 EST, Aerosol, [facility] #[id number], Partial fill upon patient request if the prescription is for a schedule II opioid drug., 170, cm, 04/04... Start Date: 05/28/23 Status: Ordered Voltaren Arthritis Pain 1% topical gel = 4 Gm, Topically, 4 times a day, # 480 Gm, 4 Refills, Maintenance, 07/24/23 14:31:00 EDT, [facility] #[id number], Partial fill upon patient request if the [...] recent to oldest [Reference Range]: 1 2 Height 170 cm (10/09/23 6:14 AM) 170 cm (10/09/23 2:02 AM) Weight 100 kg (10/09/23 2:02 AM) Oxygen Saturation [94-100 %] 99 % (10/09/23 6:14 AM) 94 % (10/09/23 2:00 AM) Pulse Rate [55-90 bpm] 90 bpm (10/09/23 6:14 AM) 69 bpm (10/09/23 2:00 AM) Blood Pressure [90-138/55-84 mm Hg] 135/ 71mm Hg (10/09/23 6:14 AM) 123/86mm Hg (10/09/23 2:00 AM) Respiratory Rate [16-30 br/min] 18 br/mi n (10/09/23 6:34 AM) 20 br/min (10/09/23 2:00 AM) Temperature [96.8-100.4 DegF] 97.3 DegF (10/09/23 2:00 AM) Liters per Minute 2 L/min (10/09/23 6:14 AM) Mode of Delivery (Oxygen) Nasal cannula (10/09/23 6:14 AM) Room air (10/09/23 2:00 AM) Blood pressure sites Arm, right (10/09/23 6:14 AM) Temperature Route Oral (10/09/23 2:00 AM) Dry Weight 100 kg (10/09/23 2:02 AM) Weight Obtained Via Patient/family state d (10/09/23 2:02 AM) Social History Social History Type Response Smoking Status 10 or more cigarette s (1/2 pack or more)/day in last 30 days; Interested in cessation: No; Patient wants NRT during admission No;Never; Type: Cigarettes; Exposure to Secondhand Smoke: No; Tobacco user in household: Yes; Started at age: 8; entered on: 01/31/23 Sex Note * Omayra Ramirez MD: PERFORM, SIGN, VERIFY Event Display: Patient Education Handout Authored Date: [id number] * Omayra Ramirez MD: PERFORM Event Display: Patient Education Leaflets Authored Date: [id number] Oxycodone/Acetaminophen Oral Tablet ?? [address] Oxycodone/Acetaminophen Oral Tablet Brands: Endocet, Nalocet, Percocet, Primlev, Prolate Uses For pain. ?? Instructions This medicine may be taken with or without food. Store at room temperature away from heat, light, and moisture. Do not keep in the bathroom. Please ask your doctor, nurse, or pharmacist how to discard unused medicines safely. To reduce constipation, eat high fiber foods, drink plenty of water and exercise. Drug interactions can change how medicines work or increase risk for side effects. Tell your healthcare providers about all medicines taken. Include prescription and mfow-wqn-nnknixk medicines, vitamins, and herbal medicines. Speak with your doctor or pharmacist before starting or stopping any medicine. Tell your doctor if symptoms do not get better or if they get worse. ?? Cautions This medicine has an opioid. Opioids help many people but may cause addiction, especially if used for a long time. The addiction risk is higher if you have a substance use disorder (overuse of or addiction to drugs or alcohol). Ask your doctor about the benefits and risks. Ask your doctor or pharmacist if you should have naloxone on hand to treat opioid overdose. Teach your family or household members about the signs of an opioid overdose and how to treat it. If you stop this medicine suddenly after using it for a long time, you may have withdrawal. Your doctor may slowly lower your dose before stopping it. Tell your doctor right away if you have symptoms, such as unusual sweating, watering eyes, runny nose, chills, diarrhea, yawning, muscle aches, restlessness, anxiety, trouble sleeping, or thoughts of suicide. Tell your doctor and pharmacist if you ever had an allergic reaction to a medicine. Do not use the medication any more than instructed. If possible, avoid using with alcohol, marijuana, or other medicines that can cause dizziness or drowsiness. These include allergy/cold products, muscle relaxers, sleep aids, and pain relievers. Your ability to stay alert or to react quickly may be impaired by this medicine. Do not drive or operate machinery until you know how this medicine will affect you. This medicine passes into breast milk. Ask your doctor before . This medicine can hurt a new baby in the womb. If you become while on this medicine, tell your doctor immediately. Your doctor may switch you to a different medicine. This medicine should be used with caution in patients with breathing difficulties. Call your doctor right away if you notice slow or shallow breathing. Do not share this medicine with anyone who has not been prescribed this medicine. This medicine has acetaminophen. Many medicines have acetaminophen. Taking them together can cause you to get too much acetaminophen, which can cause serious liver problems. Read all medicine labels for acetaminophen. Ask your pharmacist which medicines you can take safely. Some patients have serious side effects from this medicine. Ask your pharmacist to show you the information from the Food and Drug Administration (FDA) and discuss it with you. ?? Side Effects The following is a list of some common side effects from this medicine. Please speak with your doctor about what you should do if you experience these or other side effects. ??? decreased appetite ??? constipation ??? dizziness or drowsiness ??? lightheadedness ??? nausea and vomiting If you have any of the following side effects, you may be getting too much medicine. Please contactyour doctor to let them know about these side effects. ??? changes in memory, mood, or thinking ??? confusion ??? fainting ??? slow heartbeat Call your doctor or get medical help right away if you notice any of these more serious side effects: ??? decreased awareness or responsiveness ??? breathing interruption during sleep ??? shallow, irregular breathing ??? hallucinations (unusual thoughts, seeing or hearing things that are not real) ??? signs of liver damage (such as yellowing of eye or skin, dark urine, or unusual tiredness) ??? seizures ??? shortness of breath ??? severe stomach or bowel pain ??? difficulty or discomfort urinating ??? severe or persistent vomiting ??? weight loss A few people may have an allergic reaction to this medicine. Symptoms can include difficulty breathing, skin rash, itching, swelling, or severe dizziness. If you notice any of these symptoms, seek medical help quickly. ?? Extra Please speak with your doctor, nurse, or pharmacist if you have any questions about this medicine. ?? [email or web address] IMPORTANT NOTE: This document tells you briefly how to take your medicine, but it does not tell youall there is to know about it. Your doctor or pharmacist may give you other documents about your medicine. Please talk to them if you have any questions. Always follow their advice. There is a more complete description of this medicine available in Russian. Scan this code on your smartphone or tablet or use the web address below. You can also ask your pharmacist for a printout. If you have any questions, please ask your pharmacist. The display and use of this drug information is subject to Terms of Use. Copyright(c) 2023 [employer]. ?? 7864-2947 The [employer]. All rights reserved. This information is not intended as a substitute for professional medical care. Always follow your healthcare professional's instructions. ?? Patient Care team information Care Team Personnel Name: Roxi BROWN, Compa Hall Position: [facility] PCO Associate Professional Member Role: PCP Address: Address: [address] [place] [address] [place] [address]- Name: Blaire Iglesias [place] Position: [facility] Office Staff Member Role: Primary Care Nurse Name: Rhiannon Li [place] Position: [facility] Staff Member Role: Primary Care Nurse Name: Viral Jolly MD Position: [facility] Physician - Behavioral Health Member Role: Lifetime Consulting Physician Address: Address: [address] [place] [address]- Care Team Related Persons Name: MAIN MOSER Address: home [address] [place] [address] Name: JORGE GARCIA Address: home [address] [place] [address] Name: LOREE SIFUENTES
--- OUTSIDE RECORDS SUMMARY | 2024-03-03 23:33 | XMS_ITS | Continuity of Care Document ---
Author Organization [facility] Address [address] [place] [address]- Care Team Providers Care Wet Washer Machine Name Role Phone Fine PRODUCT TRANSFER PUMPER, Compa Hall Primary Care Physician ( [phone] Encounter [facility] Date(s): 11/04/23 - 12/04/[address] [address]- Allergies, Adverse Reactions, Alerts No Known Allergies [...] 11 Refills, Maintenance, 03/25/23 12:53:00 EST, Solution, [facility] #[id number], 3 mL Inhalation 4 times a da... Start Date: 03/25/23 Status: Ordered amoxicillin-clavulanate 875 mg-125 mg oral tablet 1 tablet, By Mouth, Every 12 hours, for 10 days, # 20 tablet, 0 Refills, Acute 12/06/23 7:37:00 EDT, 11/26/23 7:37:00 EDT, Tablet, [facility] #[id number], Partial fill upon patient request if the prescription is for a schedule II opioid drug., 17... Start Date: 11/26/23 Stop Date: 12/06/23 Status: Ordered Breo Ellipta 100 mcg-25 mcg/inh inhalation powder 1 puffs, Inhalation, Daily, [employer]WARDS., # 1 each, 3 Refills, 11/21/22 10:33:00 EDT, [facility] #[id number], 1 puffs Inhalation Daily,Instr:RINSE MOUTH AFTERWARDS., 170, cm, 11/19/2313:19:00 EDT, Height, 94.4, kg, 11/08/22 14:35:00 E... Start Date: 11/21/22 Status: Ordered calcium (as citrate)-vitamin D 315 mg-250 intl units oral tablet 2 tablet, By Mouth, 2 times a day, # 120 tablet, 11 Refills, Maintenance, 10/27/23 11:47:00 EDT, Tablet, [facility] #[id number], Partial fill upon patient request if the [...] 09/18/23 10:13:00 EDT, Route to Pharmacy Electronically, [facility] #[id number], Partial... Start Date: 09/18/23 Stop Date: 03/16/24 Status: Ordered duloxetine 30 mg oral enteric coated capsule 1 capsule = 30 mg, By Mouth, 2 times a day, do not crush or chew, # 180 capsule, 3 Refills, Maintenance, 12/20/22 17:50:00 EDT, [facility] #[id number], 170, cm, 12/06/22 0:43:00 EDT, Height, 94.4, kg, 11/08/22 14:35:00 EDT, Dry Weight Start Date: 12/20/22 Status: Ordered gabapentin 300 mg oral capsule 300 mg, 1, capsule, By Mouth, 3 times a day, # 270 capsule, Refills 1, Tot. Refills 1, Maintenance,08/11/23 9:29:00 EDT, Route to Pharmacy Electronically, [facility] #[id number], Partial fill upon patient request, 170, cm, 07/23/23 16:32:00 EDT,... Start Date: 08/11/23 Status: Ordered hydroxychloroquine 200 mg oral tablet 1, tablet, By Mouth, 2 times a day, # 60 tablet, Refills 5, Tot. Refills 5, 04/15/23 13:55:00 EST, Route to Pharmacy Electronically, [facility] #[id number], 170, cm, 01/31/23 10:06:00 EDT, Height, 94.4, kg, 11/08/22 14:35:00 EDT, Dry Weight Start Date: 04/15/23 Status: Ordered hydrOXYzine hydrochloride 25 mg oral tablet See Instructions, TAKE 1 TABLET BY MOUTH TWICE DAILY NEEDED FOR ANXIETY, # 60 tablet, 5 Refills,Maintenance, 09/18/23 10:13:00 EDT, [facility] #[id number], 170, cm, 07/23/23 16:32:00 EDT, Height, 100, kg, 04/20/23 21:48:00 EST, Dry Weight Start Date: 09/18/23 Status: Ordered NEBULIZER MACHINE AND TUBING NEBULIZER MACHINE AND TUBING, See Instructions, PRN Wheezing/Shortness of Breath, # 1 each, Refills0, Tot. Refills 0, Maintenance, USE NEEDED FOR WHEEZING DX:, 06/17/23 15:49:00 EST, Supply Start Date: 06/17/23 Status: Ordered NuLYTELY Lemon [place] oral powder for reconstitution 240 mL, By Mouth, Every 10 minutes, # 1 each, 0 Refills, Maintenance, 12/03/23 9:52:00 EDT, REC Powder, [facility] #[id number], Partial fill upon patient request if the prescription is for a schedule II opioid drug., 170, cm, 11/26/23 7:18:00 EDT... Start Date: 12/03/23 Status: Ordered PHENobarbital 30 mg oral tablet 1 tablet = 30 mg, By Mouth, 2 times a day, # 60 tablet, 1 Refills, Maintenance, 11/20/23 16:42:00 EDT, Tablet, [facility] #[id number], IF NOT COVERED, please use goodrx coupon and allow pt to pay OOP; $9.09; ASHLEY [id number]; Yaakov [facility]; Group [facility]; Membe... Start Date: 11/20/23 Status: Ordered predniSONE 10 mg oral tablet See Instructions, 4 tablets for 3 days 3 tabs for 3 days 2 tabs for 3 days 1 tab for 3 days, # 30 tablet, 0 Refills, Acute 12/11/23 7:37:00 EDT, 11/26/23 7:37:00 EDT, [facility] #[id number], Partial fill upon patient request if the prescriptio... Start Date: 11/26/23 Stop Date: 12/11/23 Status: Ordered risperiDONE 1 mg oral tablet 1 mg, 1, tablet, By Mouth, Daily, # 90 tablet, Refills 1, Tot. Refills 1, Maintenance, 08/11/23 9:29:00 EDT, Route to Pharmacy Electronically, [facility] #[id number], 170, cm, 07/23/23 16:32:00 EDT, Height, 100, kg, 04/20/23 21:48:00 EST, Dry Weight Start Date: 08/11/23 Stop Date: 02/07/24 Status: Ordered tiZANidine 2 mg oral tablet 2 mg, 1, tablet, By Mouth, 3 times a day, # 84 tablet, Refills 1, Tot. Refills 1, Maintenance, 09/08/23 18:10:00 EDT, Route to Pharmacy Electronically, [facility] #[id number], Partial fill upon patient request if the prescription is for a schedul... Start Date: 09/08/23 Stop Date: 11/03/23 Status: Ordered Trelegy Ellipta 200 mcg-62.5 mcg-25 mcg/inh inhalation powder 1 puffs, Inhalation, Daily, at the same time every day, # 3 each, 3 Refills, Maintenance, 07/23/23 16:56:00 EDT, Powder, [facility] #[id number], Partial fill upon patient request if the prescription is for a schedule II opioid drug., 1 puffs Inha... Start Date: 07/23/23 Stop Date: 07/17/24 Status: Ordered Ultram 50 mg oral tablet 1 tablet = 50 mg, By Mouth, Every 12 hours, PRN for pain, # 20 tablet, 0 Refills, Maintenance, 10/14/23 9:32:00 EDT, Tablet, [facility] #[id number], Partial fill upon patient request if the prescription is for a schedule II opioid drug., 170, cm,... Start Date: 10/14/23 Status: Ordered Ventolin HFA 108 mcg/inh inhalation aerosol with adapter 2 puffs, Inhalation, 4 times a day, PRN for wheezing, # 1 each, 3 Refills, Maintenance, 05/28/23 12:34:00 EST, Aerosol, [facility] #[id number], Partial fill upon patient request if the prescription is for a schedule II opioid drug., 170, cm, 04/04... Start Date: 05/28/23 Status: Ordered Voltaren Arthritis Pain 1% topical gel = 4 Gm, Topically, 4 times a day, # 480 Gm, 4 Refills, Maintenance, 07/24/23 14:31:00 EDT, [facility] #[id number], Partial fill upon patient request if the [...] Team Personnel Name: Compa Diane NP Position: [facility] PCO Associate Professional Member Role: PCP Address: Address: [address] [place] [address] [place] [address]- Name: Blaire Iglesias [place] Position: [facility] Office Staff Member Role: Primary Care Nurse Name: Rhiannon Li [place] Position: [facility] Staff Member Role: Primary Care Nurse Name: Viral Jolly MD Position: [facility] Physician - Behavioral Health Member Role: Lifetime Consulting Physician Address: Address: [address] [place] [address]- Care Team Related Persons Name: MAIN MOSER Address: home [address] [place] [address] Name: JORGE GARCIA Address: [address] [place] [address] Name: LOREE SIFUENTES
--- OUTSIDE RECORDS SUMMARY | 2024-03-03 23:33 | XMS_ITS | Continuity of Care Document ---
Author Organization [facility] Juan Horacio Address [address] [place] [address]- Care Team Providers Care Drainman Name Role Phone Angela BROWN, Robyn Martinez Primary Care Physician Encounter [facility] Date(s): 08/18/20 - 09/17/20 [facility] Adult [address] [place] [address]- Allergies, Adverse Reactions, Alerts Substance Reaction Severity Status NKA Active Immunizations Given and Recorded Vaccine Date Status Refusal Reason pneumococcal 23-valent vaccine 10/21/16 Given tetanus-diphtheria toxoids (Td) 05/05/03 Recorded Not Given Vaccine Date Status Refusal Reason influenza virus vaccine, inactivated 03/02/19 Not Given Patient Refuses Medications ProAir HFA 90 mcg/inh inhalation aerosol 2 puffs, Inhalation, Every 4 to 6 hours, PRN NEEDED FOR WHEEZE FOR SHORTNESS OF BREATH, # 18 Unknown, 11 Refills, Maintenance, 06/19/20 16:07:00 EST, [id number], 20, INHALE 2 PUFFS BY MOUTH EVERY 4 TO 6 HOURS NEEDED FOR WHEEZE FOR SHORTNESS... Start Date: 06/19/20 Status: Ordered Suboxone 8 mg-2 mg sublingual film 2.5 FILMS, Sublingual, Daily, [id number], # 75 film, 1 Refills, Maintenance, 04/26/20 16:38:00 EST, [facility] #[id number], 2.5 FILMS Sublingual Daily,Instr:[id number], 163, cm, 04/26/20 14:26:00 EST, Height, 105, kg, 03/01/19 17:26:00 EDT, Dry W... Start Date: 04/26/20 Status: Ordered Problem List Condition Effective Dates Status Health Status Inform ant Allergic rhinitis(Confirmed) Active BMI 32.0-32.9,adult(Confirmed) Active Bronchitis(Confirmed) Active Cervicogenic headache(Confirmed) Active Chronic pain(Confirmed) Active Sinus congestion(Confirmed) Active Depression(Confirmed) Active Breast [...]
--- OUTSIDE RECORDS SUMMARY | 2024-03-03 23:33 | XMS_ITS | Continuity of Care Document ---
Author Organization [facility] Address [address] [place] [address]- Care Team Providers Care Scraper Loader Operator Name Role Phone Angela BROWN, Robyn Martinez Primary Care Physician [id number] Date(s): 12/16/19 - 01/15/20 [facility] [address] [place] [address]- [facility] Allergies, Adverse Reactions, Alerts Substance Reaction Severity [...]
--- OUTSIDE RECORDS SUMMARY | 2024-03-03 23:33 | XMS_ITS | Continuity of Care Document ---
Author Organization [facility] [place] Address [address] [place] [address]- Care Team Providers Care Crewman Main Battle Tank Name Role Phone Gen BROWN, Claribel Primary Care Physician [phone] Encounter [facility] Date(s): 02/25/22 - 03/27/22 [facility] [place] [address] [place] [address]- Allergies, Adverse Reactions, Alerts No Known Allergies [...] Refills, Maintenance, 08/22/20 13:04:00 EDT, [facility], [id number], 3 mL Inhalation 4 times a day,PRN:Whe... Start Date: 08/22/20 Status: Ordered Breo Ellipta 100 mcg-25 mcg/inh inhalation powder 1 puffs, Inhalation, Daily, RINSE MOUTH AFTERWARDS., # 60 each, 1 Refills, [id number], 30, INHALE 1 PUFF BY MOUTH EVERY DAY. RINSE MOUTH AFTERWARDS., 170, cm, 03/07/21 11:09:00 EDT, Height, 107.3, kg, 06/22/20 13:29:00 EST, Dry Weight Start Date: 11/12/21 Status: Ordered diclofenac 1% topical gel = 2 Gm, Topically, 2 times a day, # 100 Gm, 2 Refills, 01/22/22 17:37:00 EDT, [facility] #[id number], 25, 2 Gm Topically 2 times a day, 170, cm, 03/07/21 11:09:00 EDT, Height, 107.3, kg, 06/22/20 13:29:00 EST, Dry Weight Start Date: 01/22/22 Status: Ordered duloxetine 30 mg oral enteric coated capsule 1 capsule = 30 mg, By Mouth, 2 times a day, do not crush or chew, # 180 capsule, 3 Refills, Maintenance, 02/19/22 14:28:00 EDT, [facility] #[id number], 170, cm, 03/07/21 11:09:00 EDT, Height, 107.3, kg, 06/22/20 13:29:00 EST, Dry Weight Start Date: 02/19/22 Status: Ordered famotidine 20 mg oral tablet 20 mg, 1, tablet, By Mouth, Daily, OV 5-6-20, # 30 tablet, Refills 5, Tot. Refills 5, Maintenance, 08/21/20 12:25:00 EDT, Route to Pharmacy Electronically, [facility] #[id number], 170, cm, 08/16/20 15:32:00 EDT, Height, 107.3, kg, 06/22/20 13:29:00 EST, D... Start Date: 08/21/20 Status: Ordered gabapentin 300 mg oral capsule 300 mg, 1, capsule, By Mouth, 3 times a day, # 270 capsule, Refills 1, Tot. Refills 1, Maintenance,08/21/21 14:14:00 EDT, Route to Pharmacy Electronically, [facility] #[id number], Partial fill upon patient request, 170, cm, 03/07/21 11:09:00 EDT... Start Date: 08/21/21 Status: Ordered gabapentin 300 mg oral capsule 300 mg, 1, capsule, By Mouth, 3 times a day, # 270 capsule, Refills 3, Tot. Refills 3, Maintenance,02/19/22 14:28:00 EDT, Route to Pharmacy Electronically, [facility] #[id number], Partial fill upon patient request, 170, cm, 03/07/21 11:09:00 EDT... Start Date: 02/19/22 Status: Ordered hydroxychloroquine 200 mg oral tablet 1, tablet, By Mouth, 2 times a day, # 60 tablet, Refills 5, Route to Pharmacy Electronically, [id number], 170, cm, 03/07/21 11:09:00 EDT, Height, 107.3, [...] 18 Gm, 5 Refills, 03/20/22 16:08:00 EST, [facility] #[id number], 2 puffs Inhalation Every 4 to 6 hours,PRN: NEEDED FOR SHORTNESS OF BREATH OR WHEEZING... Start Date: 03/20/22 Status: Ordered risperiDONE 1 mg oral tablet 1 mg, 1, tablet, By Mouth, Daily, # 90 tablet, Refills 3, Tot. Refills 3, Maintenance, 02/19/22 14:27:00 EDT, Route to Pharmacy Electronically, [facility] #[id number], 170, cm, 03/07/21 11:09:00EDT, Height, 107.3, kg, 06/22/20 13:29:00 EST, Dry... Start Date: 02/19/22 Stop Date: 02/14/23 Status: Ordered Suboxone 8 mg-2 mg Sublingual Film 1 film, Sublingual, 3 times a day, dissolve under the tongue, # 90 film, 1 Refills, Maintenance, 02/08/22 13:04:00 EDT, [facility] #[id number], Partial fill upon patient request if the prescription is for a schedule II opioid drug. ALVINA [id number],... Start Date: 02/08/22 Stop Date: 04/09/22 Status: Ordered Suboxone 8 mg-2 mg Sublingual Film 1 film, Sublingual, 3 times a day, dissolve under the tongue, # 90 film, 1 Refills, Maintenance, 12/10/21 14:40:00 EDT, [facility] #[id number], Partial fill upon patient request if the prescription is for a schedule II opioid drug. ALVINA [id number],... Start Date: 12/10/21 Stop Date: 02/08/22 Status: Ordered Suboxone 8 mg-2 mg sublingual film 3 film, Sublingual, Daily, [id number], # 90 film, 1 Refills, Maintenance, 10/21/21 9:55:00 EDT, [facility] #[id number], 3 film Sublingual Daily,x30 days,Instr:[id number], 170, cm, 03/07/21 11:09:00 EDT, Height, 107.3, kg, 06/22/20 13:29:00 EST, Dry... Start Date: 10/21/21 Stop Date: 12/20/21 Status: Ordered traZODone 50 mg oral tablet 50 mg, 1, tablet, By Mouth, Daily at bedtime, PRN, as needed, # 90 tablet, Refills 3, Tot. Refills 3, Maintenance, Sleep, 02/19/22 14:27:00 EDT, Route to Pharmacy Electronically, [facility][id number], 170, cm, 03/07/21 11:09:00 EDT, Height, 107... [...] Type Response Smoking Status Current every day jason entered on: 09/29/14 Sex Patient Care team information Care Team Personnel Name: Blaire Crandall Position: [facility] RN Member Role: Primary Care Nurse Name: Rhiannon Gibson Position: [facility] RN Member Role: Primary Care Nurse Name: Claribel Blevins NP Position: [facility] Associate Professional Member Role: PCP Address: Address: [address] [place] [id number]- [place] Name: Viral Jolly MD Position: [facility] Psychiatry MD Member Role: Lifetime Consulting Physician Address: Address: [address] [place] [address]- Care Team Related Persons Name: MAIN MOSER Address: home [address] [place] [address] Name: JORGE GARCIA Address: home [address] [place] [address]
--- OUTSIDE RECORDS SUMMARY | 2024-03-03 23:33 | XMS_ITS | Continuity of Care Document ---
Author Organization [facility] Address [address] [place] [address]- Care Team Providers Care Rail Car Repairman Name Role Phone Fine FISH HATCHERY SPECIALIST, Compa Hall Primary Care Physician ( [phone] Encounter [facility] Date(s): 03/13/23 - 04/12/23 [facility] [address] [place] [address]- Attending Physician: Maddie Jones Admitting Physician: Maddie Jones Referring Physician: AdmtrMaddie Allergies, Adverse Reactions, Alerts No Known Allergies [...] 11 Refills, Maintenance, 03/25/23 12:53:00 EST, Solution, [facility] #[id number], 3 mL Inhalation 4 times a da... Start Date: 03/25/23 Status: Ordered Breo Ellipta 100 mcg-25 mcg/inh inhalation powder 1 puffs, Inhalation, Daily, RIN[employer] MOUTH AFTERWARDS., # 1 each, 3 Refills, 11/21/22 10:33:00 EDT, [facility] #[id number], 1 puffs Inhalation Daily,Instr:RINSE MOUTH AFTERWARDS., 170, cm, 11/19/2313:19:00 EDT, Height, 94.4, kg, 11/08/22 14:35:00 E... Start Date: 11/21/22 Status: Ordered Caltrate 600 + D oral tablet 1 tablet, By Mouth, 2 times a day, # 60 tablet, 11 Refills, Maintenance, 04/10/23 11:37:00 EST, Tablet, [facility] #[id number], Partial fill upon patient request if the prescription is for a schedule II opioid drug., 1 tablet By Mouth 2 times a d... Start Date: 04/10/23 Status: Ordered cloNIDine 0.1 mg oral tablet 0.05 mg, 0.5, tablet, By Mouth, 4 times a day, PRN, stay hydrated, # 60 tablet, Refills 3, Tot. Refills 3, Maintenance, anxiety, panic, withdrawal symptoms, 03/25/23 12:52:00 EST, Route to Pharmacy Electronically, [facility] #[id number], Partial... Start Date: 03/25/23 Status: Ordered duloxetine 30 mg oral enteric coated capsule 1 capsule = 30 mg, By Mouth, 2 times a day, do not crush or chew, # 180 capsule, 3 Refills, Maintenance, 12/20/22 17:50:00 EDT, [facility] #[id number], 170, cm, 12/06/22 0:43:00 EDT, Height, 94.4, kg, 11/08/22 14:35:00 EDT, Dry Weight Start Date: 12/20/22 Status: Ordered famotidine 20 mg oral tablet 20 mg, 1, tablet, By Mouth, Daily, OV 5-6-20, # 30 tablet, Refills 5, Tot. Refills 5, Maintenance, 08/21/20 12:25:00 EDT, Route to Pharmacy Electronically, [facility]/pharmacy #0969, 170, cm, 08/16/20 15:32:00 EDT, Height, 107.3, kg, 06/22/20 13:29:00 EST, D... Start Date: 08/21/20 Status: Ordered gabapentin 300 mg oral capsule 300 mg, 1, capsule, By Mouth, 3 times a day, # 270 capsule, Refills 1, Tot. Refills 1, Maintenance,02/12/23 10:36:00 EDT, Route to Pharmacy Electronically, [facility] #[id number], Partial fill upon patient request, 170, cm, 01/31/23 10:06:00 EDT... Start Date: 02/12/23 Status: Ordered hydroxychloroquine 200 mg oral tablet 1, tablet, By Mouth, 2 times a day, # 60 tablet, Refills 5, Tot. Refills 5, 05/16/22 16:23:00 EST, Route to Pharmacy Electronically, [facility] #[id number], 175, cm, 05/01/22 15:32:00 EST, Height, 75, kg, 05/01/22 15:32:00 EST, Dry Weight Start Date: 05/16/22 Status: Ordered hydrOXYzine hydrochloride 25 mg oral tablet 1 tablet = 25 mg, By Mouth, Daily, PRN anxiety, for 30 days, # 30 tablet, 3 Refills, Acute 07/23/2411:53:00 EDT, 03/25/23 12:53:00 EST, Tablet, [facility] #[id number], Partial fill upon patientrequest if the prescription is for a schedule II op... Start Date: 03/25/23 Stop Date: 07/23/23 Status: Ordered ProAir HFA 90 mcg/inh inhalation aerosol 2 puffs, Inhalation, Every 4 to 6 hours, PRN NEEDED FOR SHORTNESS OF BREATH OR WHEEZING, # 18 Gm, 5 Refills, 02/04/23 10:36:00 EDT, [facility] #[id number], 2 puffs Inhalation Every 4 to 6 hours,PRN: NEEDED FOR SHORTNESS OF BREATH OR WHEEZING... Start Date: 02/04/23 Status: Ordered risperiDONE 1 mg oral tablet 1 mg, 1, tablet, By Mouth, Daily, # 90 tablet, Refills 1, Tot. Refills 1, Maintenance, 02/12/23 10:37:00 EDT, Route to Pharmacy Electronically, [facility] #[id number], 170, cm, 01/31/23 10:06:00EDT, Height, 94.4, kg, 11/08/22 14:35:00 EDT, Dry W... Start Date: 02/12/23 Stop Date: 08/11/23 Status: Ordered Suboxone 8 mg-2 mg Sublingual Film 1 film, Sublingual, 3 times a day, dissolve under the tongue, # 90 film, 1 Refills, Maintenance, 03/14/23 10:32:00 [facility] #[id number], Partial fill upon patient request if the prescription is for a schedule II opioid drug. ALVINA [id number];... Start Date: 03/14/23 Stop Date: 05/13/23 Status: Ordered Suboxone 8 mg-2 mg sublingual film 90 each, 0 Refill(s), DISSOLVE 1 FILM UNDER THE TONGUE THREE TIMES DAILY FOR 30 DAYS, 0 Refills, 11/19/22 13:51:00 EDT, Partial fill upon patient request if the prescription is for a schedule II opioid drug. Start Date: 11/19/22 Status: Ordered Voltaren Arthritis Pain 1% topical gel = 4 Gm, Topically, 4 times a day, # 480 Gm, 4 Refills, Maintenance, 04/10/23 11:37:00 [facility] #[id number], Partial fill upon patient request if the prescription is for a schedule II opioid drug., 4 Gm Topically 4 times a day, 170, cm, ... Start Date: 04/10/23 Status: Ordered Problem List [...] Team Personnel Name: Compa Diane NP Position: [facility] PCO Associate Professional Member Role: PCP Address: Address: [address] [place] [address] [place] [address]- Name: Blaire Iglesias [place] Position: [facility] RN Member Role: Primary Care Nurse Name: Rhiannon Gibson Position: [facility] RN Member Role: Primary Care Nurse Name: Viral Jolly MD Position: [facility] Physician - Behavioral Health Member Role: Lifetime Consulting Physician Address: Address: [address] [place] [address]- Care Team Related Persons Name: MAIN MOSER Address: home [address] [place] [address] Name: JORGE GARCIA Address: home [address] [place] [address] Name: LOREE SIFUENTES
--- OUTSIDE RECORDS SUMMARY | 2024-03-03 23:34 | XMS_ITS | Continuity of Care Document ---
Author Organization [facility] Address [address] [place] [address]- Care Team Providers Care Insecticide Supervisor Name Role Phone Angela BROWN, Robyn Martinez Primary Care Physician Encounter [facility] Date(s): 01/17/20 - 02/16/20 [facility] [place] [address] [place] [address]- [facility] Allergies, Adverse Reactions, Alerts Substance Reaction Severity [...]
--- OUTSIDE RECORDS SUMMARY | 2024-03-03 23:34 | XMS_ITS | Continuity of Care Document ---
Author Organization [facility] [place] Address [address] [place] [address]- Care Team Providers Care Cooler Deliverer Name Role Phone Angela BROWN, Robyn Martinez Primary Care Physician [id number] Date(s): 07/21/19 - 07/28/19 [facility] [place] [address] [place] [address]- [facility] Encounter Diagnosis Asthma exacerbation(Discharge Diagnosis) - 07/21/19 Attending Physician: Abigail Shane MD Allergies, Adverse Reactions, Alerts Substance Reaction Severity [...] a day,PRN:Whe... Start Date: 05/31/19 Status: Ordered Problem List Condition Effective Dates [...] ligament(Confirmed) Active Urticaria(Confirmed) Active Varicose vein(Confirmed) Active Diagnosis Diagnosis Type Effective Dates Health Status Clinical Service Informant Asthma exacerbation Discharge Diagnosis 07/21/19 Social History Social History Type Response Smoking Status Current every day antony gomez entered on: 09/29/14 Sex
--- OUTSIDE RECORDS SUMMARY | 2024-03-03 23:34 | XMS_ITS | Continuity of Care Document ---
Author Organization [facility] Address [address] [place] [address]- Care Team Providers Care Game Producer Name Role Phone Angela BROWN, Robyn Martinez Primary Care Physician Encounter [facility] Date(s): 06/27/20 - 07/27/20 [facility] [address] [place] [address]- Attending Physician: AdmtrMaddie Admitting Physician: AdmtrMaddie Referring Physician: Admtr, Ar8 [...] Refills, Maintenance, 06/19/20 16:07:00 EST, [id number], 20, INHALE 2 PUFFS BY MOUTH EVERY 4 TO 6 HOURS NEEDED FOR WHEEZE FOR SHORTNESS... Start Date: 06/19/20 Status: Ordered Suboxone 8 mg-2 mg sublingual film 2.5 FILMS, Sublingual, Daily, [id number], # 75 film, 1 Refills, Maintenance, 04/26/20 16:38:00 EST, [facility] #[id number], 2.5 FILMS Sublingual Daily,Instr:[id number], 163, cm, 04/26/20 14:26:00 EST, Height, 105, [...]
--- OUTSIDE RECORDS SUMMARY | 2024-03-03 23:34 | XMS_ITS | Continuity of Care Document ---
Author Organization [facility] [place] Address [address] [place] [address]- Care Team Providers Care Emergency Detail Driver Name Role Phone Angela BROWN, Robyn Martinez Primary Care Physician [place] [facility] - 09/15/20 [facility] [place] [address] [place] [address]- Attending Physician: Admtr, Ar8 Admitting Physician: Admtr, Ar8 Referring Physician: Admtr, Ar8 Allergies, Adverse Reactions, [...] Unknown, 11 Refills, Maintenance, 06/19/20 16:07:00 EST, [facility], 20, INHALE 2 PUFFS BY MOUTH EVERY 4 TO 6 HOURS NEEDED FOR WHEEZE FOR SHORTNESS... Start Date: 06/19/20 Status: Ordered Suboxone 8 mg-2 mg sublingual film 2.5 FILMS, Sublingual, Daily, [id number], # 75 film, 1 Refills, Maintenance, 04/26/20 16:38:00 EST, [facility] #[id number], 2.5 FILMS Sublingual Daily,Instr:[id number], 163, cm, 04/26/20 14:26:00 EST, Height, 105, [...]
--- OUTSIDE RECORDS SUMMARY | 2024-03-03 23:34 | XMS_ITS | Continuity of Care Document ---
Author Organization [facility] Address [address] [place] [address]- Care Team Providers Care Career Information Specialist Name Role Phone Fine CONTINUOUS PILLOWCASE CUTTER, Compa Hall Primary Care Physician Encounter [facility] Date(s): 08/04/23 - 09/05/23 [facility] [address] [place] [address]- Attending Physician: Eder Conrad MD Allergies, Adverse Reactions, Alerts No Known [...] 11 Refills, Maintenance, 03/25/23 12:53:00 EST, Solution, [facility] #[id number], 3 mL Inhalation 4 times a da... Start Date: 03/25/23 Status: Ordered Breo Ellipta 100 mcg-25 mcg/inh inhalation powder 1 puffs, Inhalation, Daily, RINSE MOUTH AFTERWARDS., # 1 each, 3 Refills, 11/21/22 10:33:00 EDT, [facility] #[id number], 1 puffs Inhalation Daily,Instr:RINSE MOUTH AFTERWARDS., 170, cm, 11/19/2313:19:00 EDT, Height, 94.4, kg, 11/08/22 14:35:00 E... Start Date: 11/21/22 Status: Ordered cloNIDine 0.1 mg oral tablet 0.05 mg, 0.5, tablet, By Mouth, 4 times a day, PRN, stay hydrated, # 120 tablet, Refills 0, Tot. Refills 0, Maintenance, anxiety, panic, withdrawal symptoms, 08/11/23 9:29:00 EDT, Route to Pharmacy Electronically, [facility] #[id number], Partial... Start Date: 08/11/23 Stop Date: 09/10/23 Status: Ordered duloxetine 30 mg oral enteric coated capsule 1 capsule = 30 mg, By Mouth, 2 times a day, do not crush or chew, # 180 capsule, 3 Refills, Maintenance, 12/20/22 17:50:00 EDT, [facility] #[id number], 170, cm, 12/06/22 0:43:00 EDT, Height, 94.4, kg, 11/08/22 14:35:00 EDT, Dry Weight Start Date: 12/20/22 Status: Ordered gabapentin 300 mg oral capsule 300 mg, 1, capsule, By Mouth, 3 times a day, # 270 capsule, Refills 1, Tot. Refills 1, Maintenance,08/11/23 9:29:00 EDT, Route to Pharmacy Electronically, [facility] #[id number], Partial fill upon patient request, 170, cm, 07/23/23 16:32:00 EDT,... Start Date: 08/11/23 Status: Ordered hydroxychloroquine 200 mg oral tablet 1, tablet, By Mouth, 2 times a day, # 60 tablet, Refills 5, Tot. Refills 5, 04/15/23 13:55:00 EST, Route to Pharmacy Electronically, [facility] #[id number], 170, cm, 01/31/23 10:06:00 EDT, Height, 94.4, kg, 11/08/22 14:35:00 EDT, Dry Weight Start Date: 04/15/23 Status: Ordered hydrOXYzine hydrochloride 25 mg oral tablet 1 tablet = 25 mg, By Mouth, 2 times a day, PRN for anxiety, for 30 days, # 60 tablet, 0 Refills, Acute 09/10/23 9:30:00 EDT, 08/11/23 9:30:00 EDT, Tablet, [facility] #15991, Partial fill upon patient request if the prescription is for a sche... Start Date: 08/11/23 Stop Date: 09/10/23 Status: Ordered NEBULIZER MACHINE AND TUBING NEBULIZER MACHINE AND TUBING, See Instructions, PRN Wheezing/Shortness of Breath, # 1 each, Refills0, Tot. Refills 0, Maintenance, USE NEEDED FOR WHEEZING DX:, 06/17/23 15:49:00 EST, Supply Start Date: 06/17/23 Status: Ordered PHENobarbital 30 mg oral tablet 1 tablet = 30 mg, By Mouth, 2 times a day, # 60 tablet, 1 Refills, Maintenance, 08/11/23 9:31:00 EDT, Tablet, [facility] #32847, IF NOT COVERED, please use [employer] coupon and allow pt to payOOP; $9.09; ASHLEY [id number]; [facility]; Group [id number]; Member... Start Date: 08/11/23 Status: Ordered risperiDONE 1 mg oral tablet 1 mg, 1, tablet, By Mouth, Daily, # 90 tablet, Refills 1, Tot. Refills 1, Maintenance, 08/11/23 9:29:00 EDT, Route to Pharmacy Electronically, [facility] #[id number], 170, cm, 07/23/23 16:32:00 EDT, Height, 100, kg, 04/20/23 21:48:00 EST, Dry Weight Start Date: 08/11/23 Stop Date: 02/07/24 Status: Ordered Suboxone 8 mg-2 mg Sublingual Film 1 film, Sublingual, 3 times a day, dissolve under the tongue, # 90 film, 1 Refills, Maintenance, 07/13/23 11:49:00 EDT, [facility] #[id number], Partial fill upon patient request if the prescription is for a schedule II opioid drug. ALVINA [id number];... Start Date: 07/13/23 Stop Date: 09/11/23 Status: Ordered tiZANidine 2 mg oral tablet 2 mg, 1, tablet, By Mouth, 3 times a day, # 84 tablet, Refills 1, Tot. Refills 1, Maintenance, 07/01/23 16:53:00 EST, Route to Pharmacy Electronically, [facility] #04596, Partial fill upon patient request if the prescription is for a schedul... Start Date: 07/01/23 Stop Date: 08/26/23 Status: Ordered Trelegy Ellipta 200 mcg-62.5 mcg-25 mcg/inh inhalation powder 1 puffs, Inhalation, Daily, at the same time every day, # 3 each, 3 Refills, Maintenance, 07/23/23 16:56:00 EDT, Powder, [facility] #[id number], Partial fill upon patient request if the prescription is for a schedule II opioid drug., 1 puffs Inha... Start Date: 07/23/23 Stop Date: 07/17/24 Status: Ordered Ventolin HFA 108 mcg/inh inhalation aerosol with adapter 2 puffs, Inhalation, 4 times a day, PRN for wheezing, # 1 each, 3 Refills, Maintenance, 05/28/23 12:34:00 EST, Aerosol, [facility] #[id number], Partial fill upon patient request if the prescription is for a schedule II opioid drug., 170, cm, 04/04... Start Date: 05/28/23 Status: Ordered Voltaren Arthritis Pain 1% topical gel = 4 Gm, Topically, 4 times a day, # 480 Gm, 4 Refills, Maintenance, 07/24/23 14:31:00 EDT, [facility] #06535, Partial fill upon patient request if the [...] Team Personnel Name: Compa Diane NP Position: [facility]O Associate Professional Member Role: PCP Address: Address: [address] [place] [address] [place] [address]- [place] Name: Blaire Iglesias [place] Position: [facility] RN Member Role: Primary Care Nurse Name: Rihannon Gibson Position: [facility] RN Member Role: Primary Care Nurse Name: Viral Jolly MD Position: [facility] Physician - Behavioral Health Member Role: Lifetime Consulting Physician Address: Address: [address] [place] [address]- Care Team Related Persons Name: MAIN MOSER Address: home [address] [place] [address] Name: JORGE GARCIA Address: [address] [place] [address] Name: LOREE SIFUENTES
--- OUTSIDE RECORDS SUMMARY | 2024-03-03 23:34 | XMS_ITS | Continuity of Care Document ---
Author Organization [facility] [place] Address [address] [place] [address]- Care Team Providers Care Mainframe Programmer Name Role Phone Roxi BROWN, Compa Hall Primary Care Physician Encounter [facility] Date(s): 10/28/23 - 11/27/23 [facility] [place] [address] [place] [address]- Allergies, Adverse Reactions, Alerts No Known Allergies [...] 11 Refills, Maintenance, 03/25/23 12:53:00 EST, Solution, [facility] #[id number], 3 mL Inhalation 4 times a da... Start Date: 03/25/23 Status: Ordered amoxicillin-clavulanate 875 mg-125 mg oral tablet 1 tablet, By Mouth, Every 12 hours, for 10 days, # 20 tablet, 0 Refills, Acute 12/06/23 7:37:00 EDT, 11/26/23 7:37:00 EDT, Tablet, [facility] #[id number], Partial fill upon patient request if the prescription is for a schedule II opioid drug., 17... Start Date: 11/26/23 Stop Date: 12/06/23 Status: Ordered Breo Ellipta 100 mcg-25 mcg/inh inhalation powder 1 puffs, Inhalation, Daily, R[employer] AFTERWARDS., # 1 each, 3 Refills, 11/21/22 10:33:00 EDT, [facility] #[id number], 1 puffs Inhalation Daily,Instr:RINSE MOUTH AFTERWARDS., 170, cm, 11/19/2313:19:00 EDT, Height, 94.4, kg, 11/08/22 14:35:00 E... Start Date: 11/21/22 Status: Ordered calcium (as citrate)-vitamin D 315 mg-250 intl units oral tablet 2 tablet, By Mouth, 2 times a day, # 120 tablet, 11 Refills, Maintenance, 10/27/23 11:47:00 EDT, Tablet, [facility] #[id number], Partial fill upon patient request if the [...] 09/18/23 10:13:00 EDT, Route to Pharmacy Electronically, [facility] #[id number], Partial... Start Date: 09/18/23 Stop Date: 03/16/24 Status: Ordered duloxetine 30 mg oral enteric coated capsule 1 capsule = 30 mg, By Mouth, 2 times a day, do not crush or chew, # 180 capsule, 3 Refills, Maintenance, 12/20/22 17:50:00 EDT, [facility] #[id number], 170, cm, 12/06/22 0:43:00 EDT, Height, 94.4, kg, 11/08/22 14:35:00 EDT, Dry Weight Start Date: 12/20/22 Status: Ordered gabapentin 300 mg oral capsule 300 mg, 1, capsule, By Mouth, 3 times a day, # 270 capsule, Refills 1, Tot. Refills 1, Maintenance,08/11/23 9:29:00 EDT, Route to Pharmacy Electronically, [facility] #[id number], Partial fill upon patient request, 170, cm, 07/23/23 16:32:00 EDT,... Start Date: 08/11/23 Status: Ordered hydroxychloroquine 200 mg oral tablet 1, tablet, By Mouth, 2 times a day, # 60 tablet, Refills 5, Tot. Refills 5, 04/15/23 13:55:00 EST, Route to Pharmacy Electronically, [facility] #[id number], 170, cm, 01/31/23 10:06:00 EDT, Height, 94.4, kg, 11/08/22 14:35:00 EDT, Dry Weight Start Date: 04/15/23 Status: Ordered hydrOXYzine hydrochloride 25 mg oral tablet See Instructions, TAKE 1 TABLET BY MOUTH TWICE DAILY NEEDED FOR ANXIETY, # 60 tablet, 5 Refills,Maintenance, 09/18/23 10:13:00 EDT, [facility] #[id number], 170, cm, 07/23/23 16:32:00 EDT, Height, 100, [...] 1 Refills, Maintenance, 11/20/23 16:42:00 EDT, Tablet, [facility] #[id number], IF NOT COVERED, please use In [employer]vor[employer] coupon and allow pt to pay OOP; $9.09; ASHLEY [id number]; [facility]; Group 33; Allanbe... Start Date: 11/20/23 Status: Ordered predniSONE 10 mg oral tablet See Instructions, 4 tablets for 3 days 3 tabs for 3 days 2 tabs for 3 days 1 tab for 3 days, # 30 tablet, 0 Refills, Acute 12/11/23 7:37:00 EDT, 11/26/23 7:37:00 EDT, [facility] #[id number], Partial fill upon patient request if the prescriptio... Start Date: 11/26/23 Stop Date: 12/11/23 Status: Ordered risperiDONE 1 mg oral tablet 1 mg, 1, tablet, By Mouth, Daily, # 90 tablet, Refills 1, Tot. Refills 1, Maintenance, 08/11/23 9:29:00 EDT, Route to Pharmacy Electronically, [facility] #[id number], 170, cm, 07/23/23 16:32:00 EDT, Height, 100, kg, 04/20/23 21:48:00 EST, Dry Weight Start Date: 08/11/23 Stop Date: 02/07/24 Status: Ordered tiZANidine 2 mg oral tablet 2 mg, 1, tablet, By Mouth, 3 times a day, # 84 tablet, Refills 1, Tot. Refills 1, Maintenance, 09/08/23 18:10:00 EDT, Route to Pharmacy Electronically, [facility] #[id number], Partial fill upon patient request if the prescription is for a schedul... Start Date: 09/08/23 Stop Date: 11/03/23 Status: Ordered Trelegy Ellipta 200 mcg-62.5 mcg-25 mcg/inh inhalation powder 1 puffs, Inhalation, Daily, at the same time every day, # 3 each, 3 Refills, Maintenance, 07/23/23 16:56:00 EDT, Powder, [facility] #[id number], Partial fill upon patient request if the prescription is for a schedule II opioid drug., 1 puffs Inha... Start Date: 07/23/23 Stop Date: 07/17/24 Status: Ordered Ultram 50 mg oral tablet 1 tablet = 50 mg, By Mouth, Every 12 hours, PRN for pain, # 20 tablet, 0 Refills, Maintenance, 10/14/23 9:32:00 EDT, Tablet, [facility] #[id number], Partial fill upon patient request if the prescription is for a schedule II opioid drug., 170, cm,... Start Date: 10/14/23 Status: Ordered Ventolin HFA 108 mcg/inh inhalation aerosol with adapter 2 puffs, Inhalation, 4 times a day, PRN for wheezing, # 1 each, 3 Refills, Maintenance, 05/28/23 12:34:00 EST, Aerosol, [facility] #[id number], Partial fill upon patient request if the prescription is for a schedule II opioid drug., 170, cm, 04/04... Start Date: 05/28/23 Status: Ordered Voltaren Arthritis Pain 1% topical gel = 4 Gm, Topically, 4 times a day, # 480 Gm, 4 Refills, Maintenance, 07/24/23 14:31:00 EDT, [facility] #[id number], Partial fill upon patient request if the [...] Team Personnel Name: Compa Diane NP Position: [facility] PCO Associate Professional Member Role: PCP Address: Address: [address] [facility] [place] [address]- Name: Blaire Iglesias [place] Position: [facility] Office Staff Member Role: Primary Care Nurse Name: Rhiannon Li [place] Position: [facility] Office Staff Member Role: Primary Care Nurse Name: Viral Jolly MD Position: [facility] Physician - Behavioral Health Member Role: Lifetime Consulting Physician Address: Address: [address] [place] [address]- Care Team Related Persons Name: MAIN MOSER Address: home [address] [place] [address] Name: JORGE GARCIA Address: home [address] [place] [address] Name: LOREE SIFUENTES
--- OUTSIDE RECORDS SUMMARY | 2024-03-03 23:34 | XMS_ITS | Continuity of Care Document ---
Author Organization [facility] Address [address] [address]- Care Team Providers Care Lump Inspector Name Role Phone Angela BROWN, Robyn Martinez Primary Care Physician [place] [facility] [place]20 - 07/[place]/20 [facility] [address] [address] Allergies, Adverse Reactions, Alerts Substance Reaction Severity [...] Refills, Maintenance, 06/19/20 16:07:00 EST, [id number], 20, INHALE 2 PUFFS BY MOUTH EVERY 4 TO 6 HOURS NEEDED FOR WHEEZE FOR SHORTNESS... Start Date: 06/19/20 Status: Ordered Suboxone 8 mg-2 mg sublingual film 2.5 FILMS, Sublingual, Daily, [id number], # 75 film, 1 Refills, Maintenance, 04/26/20 16:38:00 EST, [email or web address] #[id number], 2.5 FILMS Sublingual Daily,Instr:[id number], 163, cm, 04/26/20 14:26:00 EST, Height, 105, [...]
--- OUTSIDE RECORDS SUMMARY | 2024-03-03 23:34 | XMS_ITS | Continuity of Care Document ---
Author Organization [facility] Address [address] [place] [address]- Care Team Providers Care Senior Data Developer Name Role Phone Angela BROWN, Robyn Martinez Primary Care Physician Encounter [facility] Date(s): 07/13/20 - 08/12/20 [facility] [address] [place] [address]- Attending Physician: Admtr, Ar8 Admitting Physician: Admtr, [...] Refills, Maintenance, 06/19/20 16:07:00 EST, [facility], 20, INHALE 2 PUFFS BY MOUTH EVERY 4 TO 6 HOURS NEEDED FOR WHEEZE FOR SHORTNESS... Start Date: 06/19/20 Status: Ordered Suboxone 8 mg-2 mg sublingual film 2.5 FILMS, Sublingual, Daily, [id number], # 75 film, 1 Refills, Maintenance, 04/26/20 16:38:00 EST, [facility] #[id number], 2.5 FILMS Sublingual Daily,Instr:[id number], 163, cm, 04/26/20 14:26:00 EST, Height, 105, [...]
--- OUTSIDE RECORDS SUMMARY | 2024-03-03 23:34 | XMS_ITS | Continuity of Care Document ---
Author Organization [facility] Address [address] [place] [address]- Care Team Providers Care Quality Consultant Name Role Phone Gen BROWN, Claribel Primary Care Physician Encounter [facility] Date(s): 02/05/21 - 03/07/21 [facility] [address] [place], [place] [address] Attending Physician: Maddie Jones Admitting Physician: AdmtrMaddie Referring Physician: Admtr, Sterling8 Allergies, Adverse Reactions, Alerts Substance Reaction Severity [...] OF BREATH OR WHEEZING, # 18 each, 6 Refills, [facility]12, 20, INHALE 2 PUFFS BY MOUTH EVERY 4 TO 6 HOURS NEEDED FOR SHORTNESS OF BREATH OR WHEEZING, 170, cm, 08/16/20 15:32:00... Start Date: 01/16/21 Status: Ordered Problem List Condition Effective Dates [...]
--- OUTSIDE RECORDS SUMMARY | 2024-03-03 23:34 | XMS_ITS | Continuity of Care Document ---
Author Organization [facility] Primary [facility] [place] Address [address] [place] [address]- Care Team Providers Care Cyber Engineer Name Role Phone Angela BROWN, Robyn Martinez Primary Care Physician Encounter [facility] Date(s): 04/10/20 - 05/10/20 [facility] [place] [address] [place] [address]- Allergies, Adverse Reactions, Alerts Substance Reaction Severity [...] mg sublingual film 2.5 FILMS, Sublingual, Daily, [id number], # 75 film, 1 Refills, Maintenance, 04/26/20 16:38:00 EST, [facility] #[id number], 2.5 FILMS Sublingual Daily,Instr:[id number], 163, cm, 04/26/20 14:26:00 EST, Height, 105, [...]
--- OUTSIDE RECORDS SUMMARY | 2024-03-03 23:34 | XMS_ITS | Continuity of Care Document ---
Author Organization [facility] Primary [facility] [place] Address [address] [place] [address]- Care Team Providers Care Trap Setter Name Role Phone Zachary Garza MD Primary Care Physician Encounter [facility] Date(s): 04/23/19 - 05/03/19 [facility] [place] [address] [place] [address]- [facility] Attending Physician: Maddie Jones Admitting Physician: Maddie Jones Referring Physician: Maddie Jonse Allergies, Adverse Reactions, Alerts Substance Reaction Severity Status NKA Active Immunizations Given and Recorded Vaccine Date Status Refusal Reason pneumococcal 23-valent vaccine 10/21/16 Given tetanus-diphtheria toxoids (Td) 05/05/03 Recorded Not Given Vaccine Date Status Refusal Reason influenza virus vaccine, inactivated 03/02/19 Not Given Patient Refuses Medications No Known Medications Problem List Condition Effective Dates Status Health [...] ligament(Confirmed) Active Urticaria(Confirmed) Active Varicose vein(Confirmed) Active Vital Signs Most recent to oldest [Reference Range]: 1 Height 163 cm (04/02/19 6:17 PM) Weight 98.5 kg (04/02/19 6:17 PM) Social History Social History Type Response Smoking Status Current every day antony gomez entered on: 09/29/14 Sex
--- OUTSIDE RECORDS SUMMARY | 2024-03-03 23:34 | XMS_ITS | Continuity of Care Document ---
Author Organization [facility] Primary [facility] [place] Address [address] [place] [address]- Care Team Providers Care Plant Maintenance Supervisor Name Role Phone Angela BROWN, Robyn Martinez Primary Care Physician Encounter [facility] Date(s): 09/11/20 - 10/11/20 [facility] [place] [address] [place] [address]- Attending Physician: AdmMaddie childs Admitting Physician: Admtr, Maddie Referring Physician: Admtr, Ar8 Allergies, Adverse Reactions, [...] Unknown, 11 Refills, Maintenance, 06/19/20 16:07:00 EST, [facility], 20, INHALE 2 PUFFS BY MOUTH EVERY 4 TO 6 HOURS NEEDED FOR WHEEZE FOR SHORTNESS... Start Date: 06/19/20 Status: Ordered Suboxone 8 mg-2 mg sublingual film 2.5 FILMS, Sublingual, Daily, [id number], # 75 film, 1 Refills, Maintenance, 04/26/20 16:38:00 EST, [facility] #[id number], 2.5 FILMS Sublingual Daily,Instr:[id number], 163, cm, 04/26/20 14:26:00 EST, Height, 105, [...]
--- OUTSIDE RECORDS SUMMARY | 2024-03-03 23:34 | XMS_ITS | Continuity of Care Document ---
Author Organization [facility] Primary Car [facility] [place] Address [address] [place] [address]- Care Team Providers Care Construction Job Cost Estimator Name Role Phone Fine SOCIAL MEDIA PROJECT MANAGER, Compa Hall Primary Care Physician Encounter [facility] Date(s): 02/04/23 - 03/06/23 [facility] [place] [address] [place] [address]- Allergies, Adverse Reactions, Alerts No Known Allergies Immunizations Given and Recorded Vaccine Date Status Refusal Reason SARS-CoV-2 (COVID-19) mRNA BNT-162b2 vac 09/08/20 Recorded SARS-CoV-2 (COVID-19) mRNA BNT-162c8 vac 08/18/20 Recorded pneumococcal 23-valent vaccine 10/21/16 Given tetanus-diphtheria toxoids (Td) 05/05/03 Recorded Medications Breo Ellipta 100 mcg-25 mcg/inh inhalation powder 1 puffs, Inhalation, Daily, RINSE MOUTH AFTERWARDS., # 1 each, 3 Refills, 11/21/22 10:33:00 EDT, [facility] #[id number], 1 puffs Inhalation Daily,Instr:RINSE MOUTH AFTERWARDS., 170, cm, 11/19/2313:19:00 EDT, Height, 94.4, kg, 11/08/22 14:35:00 E... Start Date: 11/21/22 Status: Ordered cloNIDine 0.1 mg oral tablet 0.05 mg, 0.5, tablet, By Mouth, 4 times a day, PRN, stay hydrated, # 60 tablet, Refills 1, Tot. Refills 1, Maintenance, anxiety, panic, withdrawal symptoms, 02/12/23 10:37:00 EDT, Route to Pharmacy Electronically, [facility] #[id number], Partial... Start Date: 02/12/23 Status: Ordered duloxetine 30 mg oral enteric coated capsule 1 capsule = 30 mg, By Mouth, 2 times a day, do not crush or chew, # 180 capsule, 3 Refills, Maintenance, 12/20/22 17:50:00 EDT, [facility] #[id number], 170, cm, 12/06/22 0:43:00 EDT, Height, 94.4, kg, 11/08/22 14:35:00 EDT, Dry Weight Start Date: 12/20/22 Status: Ordered famotidine 20 mg oral tablet 20 mg, 1, tablet, By Mouth, Daily, OV 5-6-20, # 30 tablet, Refills 5, Tot. Refills 5, Maintenance, 08/21/20 12:25:00 EDT, Route to Pharmacy Electronically, [facility]/pharmacy #[id number], 170, cm, 08/16/20 15:32:00 EDT, Height, 107.3, kg, 06/22/20 13:29:00 EST, D... Start Date: 08/21/20 Status: Ordered gabapentin 300 mg oral capsule 300 mg, 1, capsule, By Mouth, 3 times a day, # 270 capsule, Refills 1, Tot. Refills 1, Maintenance,02/12/23 10:36:00 EDT, Route to Pharmacy Electronically, [facility] #[id number], Partial fill upon patient request, 170, cm, 01/31/23 10:06:00 EDT... Start Date: 02/12/23 Status: Ordered hydroxychloroquine 200 mg oral tablet 1, tablet, By Mouth, 2 times a day, # 60 tablet, Refills 5, Tot. Refills 5, 05/16/22 16:23:00 EST, Route to Pharmacy Electronically, [facility] #[id number], 175, cm, 05/01/22 15:32:00 EST, Height, 75, kg, 05/01/22 15:32:00 EST, Dry Weight Start Date: 05/16/22 Status: Ordered hydrOXYzine hydrochloride 25 mg oral tablet 1 tablet = 25 mg, By Mouth, Daily, PRN anxiety, for 30 days, # 30 tablet, 3 Refills, Acute 06/12/2409:37:00 EST, 02/12/23 10:37:00 EDT, Tablet, [facility] #[id number], Partial fill upon patientrequest if the prescription is for a schedule II op... Start Date: 02/12/23 Stop Date: 06/12/23 Status: Ordered ProAir HFA 90 mcg/inh inhalation aerosol 2 puffs, Inhalation, Every 4 to 6 hours, PRN NEEDED FOR SHORTNESS OF BREATH OR WHEEZING, # 18 Gm, 5 Refills, 02/04/23 10:36:00 EDT, [facility] #[id number], 2 puffs Inhalation Every 4 to 6 hours,PRN: NEEDED FOR SHORTNESS OF BREATH OR WHEEZING... Start Date: 02/04/23 Status: Ordered risperiDONE 1 mg oral tablet 1 mg, 1, tablet, By Mouth, Daily, # 90 tablet, Refills 1, Tot. Refills 1, Maintenance, 02/12/23 10:37:00 EDT, Route to Pharmacy Electronically, [facility] #[id number], 170, cm, 01/31/23 10:06:00EDT, Height, 94.4, kg, 11/08/22 14:35:00 EDT, Dry W... Start Date: 02/12/23 Stop Date: 08/11/23 Status: Ordered Suboxone 8 mg-2 mg sublingual [...] film, 1 Refills, Maintenance, 01/13/23 10:32:00 EDT, [facility] #01876, Partial fill upon patient request if the prescription is for a schedule II opioid drug. ALVINA [id number];... Start Date: 01/13/23 Stop Date: 03/14/23 Status: Ordered Problem List Condition Confirmation Course [...] Team Personnel Name: Compa Diane NP Position: [facility] PCO Associate Professional Member Role: PCP Address: Address: [address] [place] [address]- Name: Blaire Iglesias [place] Position: [facility] RN Member Role: Primary Care Nurse Name: Rhiannon Gibson Position: [facility] RN Member Role: Primary Care Nurse Name: Viral Jolly MD Position: [facility] Physician - Behavioral Health Member Role: Lifetime Consulting Physician Address: Address: [address] [place] [address]- Care Team Related Persons Name: MAIN MOSER Address: home [address] [place] [address] Name: JORGE GARCIA Address: home [address] [place] [address] Name: LOREE SIFUENTES
--- OUTSIDE RECORDS SUMMARY | 2024-03-03 23:34 | XMS_ITS | Continuity of Care Document ---
Author Organization [facility] Address [address] [place] [address]- Care Team Providers Care Eyelet Operator Name Role Phone Robyn Miller NP Primary Care Physician [place] [facility] [place] 11/19/19 - 01/14/20 [facility] [address] [address]- [facility] Attending Physician: Carleen Frost MD Admitting Physician: Carleen Frost MD Referring Physician: Robyn Miller NP Allergies, Adverse [...]
--- OUTSIDE RECORDS SUMMARY | 2024-03-03 23:34 | XMS_ITS | Continuity of Care Document ---
Author Organization [facility] [place] Address [address] [place] [address]- Care Team Providers Care Environment Artist Name Role Phone Angela BROWN, Robyn Martinez Primary Care Physician Encounter [facility] Date(s): 04/14/20 - 05/14/20 [facility] [place] [address] [place] [address]- Allergies, Adverse Reactions, Alerts Substance Reaction Severity [...] mg sublingual film 2.5 FILMS, Sublingual, Daily, [id number], # 75 film, 1 Refills, Maintenance, 04/26/20 16:38:00 EST, [facility] #[id number], 2.5 FILMS Sublingual Daily,Instr:[id number], 163, cm, 04/26/20 14:26:00 EST, Height, 105, [...]
--- OUTSIDE RECORDS SUMMARY | 2024-03-03 23:34 | XMS_ITS | Continuity of Care Document ---
Author Organization [facility] [place] Address [address] [place] [address]- Care Team Providers Care General Inspector Name Role Phone Fine DESSERT CUP MACHINE FEEDER, Compa Hall Primary Care Physician ( [phone] Encounter [facility] Date(s): 05/13/23 - 06/12/23 [facility] [place] [address] [place] [address]- Allergies, Adverse Reactions, Alerts No Known Allergies Immunizations Given and Recorded Vaccine Date Status Refusal Reason SARS-CoV-2 (COVID-19) mRNA BNT-162b2 vac 09/08/20 Recorded SARS-CoV-2 (COVID-19) mRNA BNT-162t5 vac 08/18/20 Recorded pneumococcal 23-valent vaccine 10/21/16 Given tetanus-diphtheria toxoids (Td) 05/05/03 Recorded Medications albuterol-ipratropium 3 mg-0.5 mg/3 ml inhalation solution 3 mL, Inhalation, 4 times a day, PRN Wheezing/Shortness of Breath, DX: [id number] do not use ventolineand Nebs at the same time, # 90 mL, 11 Refills, Maintenance, 03/25/23 12:53:00 EST, Solution, [facility] #[id number], 3 mL Inhalation 4 times a da... Start Date: 03/25/23 Status: Ordered Breo Ellipta 100 mcg-25 mcg/inh inhalation powder 1 puffs, Inhalation, Daily, RINSE MOUTH AFTERWARDS., # 1 each, 3 Refills, 11/21/22 10:33:00 EDT, [facility] #[id number], 1 puffs Inhalation Daily,Instr:RINSE MOUTH AFTERWARDS., 170, cm, 11/19/2313:19:00 EDT, Height, 94.4, kg, 11/08/22 14:35:00 E... Start Date: 11/21/22 Status: Ordered cloNIDine 0.1 mg oral tablet 0.05 mg, 0.5, tablet, By Mouth, 4 times a day, PRN, stay hydrated, # 120 tablet, Refills 3, Tot. Refills 3, Maintenance, anxiety, panic, withdrawal symptoms, 03/25/23 12:52:00 EST, Route to Pharmacy Electronically, [facility] #[id number], Partial... Start Date: 03/25/23 Stop Date: 09/10/23 Status: Ordered duloxetine 30 mg oral enteric coated capsule 1 capsule = 30 mg, By Mouth, 2 times a day, do not crush or chew, # 180 capsule, 3 Refills, Maintenance, 12/20/22 17:50:00 EDT, [facility] #[id number], 170, cm, 12/06/22 0:43:00 EDT, Height, 94.4, kg, 11/08/22 14:35:00 EDT, Dry Weight Start Date: 12/20/22 Status: Ordered gabapentin 300 mg oral capsule 300 mg, 1, capsule, By Mouth, 3 times a day, # 270 capsule, Refills 1, Tot. Refills 1, Maintenance,02/12/23 10:36:00 EDT, Route to Pharmacy Electronically, [facility] #[id number], Partial fill upon patient request, 170, cm, 01/31/23 10:06:00 EDT... Start Date: 02/12/23 Status: Ordered hydroxychloroquine 200 mg oral tablet 1, tablet, By Mouth, 2 times a day, # 60 tablet, Refills 5, Tot. Refills 5, 04/15/23 13:55:00 EST, Route to Pharmacy Electronically, [facility] #[id number], 170, cm, 01/31/23 10:06:00 EDT, Height, 94.4, kg, 11/08/22 14:35:00 EDT, Dry Weight Start Date: 04/15/23 Status: Ordered hydrOXYzine hydrochloride 25 mg oral tablet 1 tablet = 25 mg, By Mouth, Daily, PRN anxiety, for 30 days, # 30 tablet, 3 Refills, Acute 07/23/2411:53:00 EDT, 03/25/23 12:53:00 EST, Tablet, [facility] #59941, Partial fill upon patientrequest if the prescription is for a schedule II op... Start Date: 03/25/23 Stop Date: 07/23/23 Status: Ordered risperiDONE 1 mg oral tablet 1 mg, 1, tablet, By Mouth, Daily, # 90 tablet, Refills 1, Tot. Refills 1, Maintenance, 02/12/23 10:37:00 EDT, Route to Pharmacy Electronically, [facility] #[id number], 170, cm, 01/31/23 10:06:00EDT, Height, 94.4, kg, 11/08/22 14:35:00 EDT, Dry W... Start Date: 02/12/23 Stop Date: 08/11/23 Status: Ordered Suboxone 8 mg-2 mg Sublingual Film 1 film, Sublingual, 3 times a day, dissolve under the tongue, # 90 film, 1 Refills, Maintenance, 05/14/23 11:49:00 EST, [facility] #[id number], Partial fill upon patient request if the prescription is for a schedule II opioid drug. ALVINA [id number];... Start Date: 05/14/23 Stop Date: 07/13/23 Status: Ordered tiZANidine 2 mg oral tablet 2 mg, 1, tablet, By Mouth, 3 times a day, # 21 tablet, Refills 0, Tot. Refills 0, Maintenance, 04/22/23 9:05:00 EST, Route to Pharmacy Electronically, [facility] #[id number], Partial fill upon patient request if the prescription is for a schedule... Start Date: 04/22/23 Stop Date: 04/29/23 Status: Ordered Ventolin HFA 108 mcg/inh inhalation aerosol with adapter 2 puffs, Inhalation, 4 times a day, PRN for wheezing, # 1 each, 3 Refills, Maintenance, 05/28/23 12:34:00 EST, Aerosol, [facility] #[id number], Partial fill upon patient request if the prescription is for a schedule II opioid drug., 170, cm, 04/04... Start Date: 05/28/23 Status: Ordered Voltaren Arthritis Pain 1% topical gel = 4 Gm, Topically, 4 times a day, # 480 Gm, 4 Refills, Maintenance, 04/10/23 11:37:00 EST, [facility] #[id number], Partial fill upon patient request if the prescription is for a schedule II opioid drug., 4 Gm Topically 4 times a day, 170, cm, ... Start Date: 04/10/23 Status: Ordered [facility] PAIN RELIEVING LIDOCAINE PATCH 4% [employer] PAIN RELIEVING LIDOCAINE PATCH 4%, See Instructions, [...] Personnel Name: Roxi BROWN, Compa Hall Position: [facility] PCO Associate Professional Member Role: PCP Address: Address: [address] [facility] [place] [address]- [place] Name: Blaire Iglesias [place] Position: [facility] RN Member Role: Primary Care Nurse Name: Rhiannon Gibson Position: [facility] RN Member Role: Primary Care Nurse Name: Viral Jolly MD Position: [facility] Physician - Behavioral Health Member Role: Lifetime Consulting Physician Address: Address: [address] [place] [address]- Care Team Related Persons Name: MAIN MOSER Address: home [address] [place] [address] Name: JORGE GARCIA Address: home [address] [place] [address] Name: LOREE SIFUENTES
--- OUTSIDE RECORDS SUMMARY | 2024-03-03 23:34 | XMS_ITS | Continuity of Care Document ---
Author Organization [facility] Address [address] [place] [address]- Care Team Providers Care Oil Burner Servicer And Installer Name Role Phone Angela BROWN, Robyn Martinez Primary Care Physician Encounter [facility] Date(s): 11/22/19 - 12/24/19 [facility] [address] [place] [address]- [facility] Attending Physician: Eder Conrad MD Allergies, Adverse Reactions, Alerts Substance Reaction [...]
--- OUTSIDE RECORDS SUMMARY | 2024-03-03 23:34 | XMS_ITS | Continuity of Care Document ---
Author Organization [facility] Address [address] [place] [address]- Care Team Providers Care Rug Receiving Clerk Name Role Phone Angela BROWN, Robyn Martinez Primary Care Physician En[place] [facility] Date(s): 06/20/20 - 07/20/20 [facility] [address] [place] [address]- Attending Physician: AdmMaddie childs Admitting Physician: AdmtrMaddie [...] Refills, Maintenance, 06/19/20 16:07:00 EST, [id number], 20, INHALE 2 PUFFS BY MOUTH EVERY 4 TO 6 HOURS NEEDED FOR WHEEZE FOR SHORTNESS... Start Date: 2/15/21 Status: Ordered Suboxone 8 mg-2 mg sublingual film 2.5 FILMS, Sublingual, Daily, [id number], # 75 film, 1 Refills, Maintenance, 04/26/20 16:38:00 EST, [facility] #[id number], 2.5 FILMS Sublingual Daily,Instr:[id number], 163, cm, 04/26/20 14:26:00 EST, Height, 105, [...]
--- OUTSIDE RECORDS SUMMARY | 2024-03-03 23:34 | XMS_ITS | Continuity of Care Document ---
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, Compa Hall Primary Care Physician Encounter [facility] Date(s): 12/25/23 - 01/24/24 [facility] [address] [place] [address]- Allergies, Adverse Reactions, Alerts No Known Allergies Immunizations Given and Recorded Vaccine Date Status Refusal Reason SARS-CoV-2 (COVID-19) mRNA BNT-162b2 vac 09/08/20 Recorded SARS-CoV-2 (COVID-19) mRNA BNT-162k1 vac 08/18/20 Recorded pneumococcal 23-valent vaccine 10/21/16 Given tetanus-diphtheria toxoids (Td) 05/05/03 Recorded Medications albuterol-ipratropium 3 mg-0.5 mg/3 ml inhalation solution 3 mL, Inhalation, 4 times a day, PRN Wheezing/Shortness of Breath, DX: J45.909 do not use ventolineand Nebs at the same time, # 90 mL, 11 Refills, Maintenance, 03/25/23 12:53:00 EST, Solution, [facility] #[id number], 3 mL Inhalation 4 times a da... Start Date: 03/25/23 Status: Ordered Breo Ellipta 100 mcg-25 mcg/inh inhalation powder 1 puffs, Inhalation, Daily, RINSE MOUTH AFTERWARDS., # 1 each, 3 Refills, 11/21/22 10:33:00 EDT, [facility] #[id number], 1 puffs Inhalation Daily,Instr:RINSE MOUTH AFTERWARDS., 170, cm, 11/19/2313:19:00 EDT, Height, 94.4, kg, 11/08/22 14:35:00 E... Start Date: 11/21/22 Status: Ordered calcium (as citrate)-vitamin D 315 mg-250 intl units oral tablet 2 tablet, By Mouth, 2 times a day, # 120 tablet, 11 Refills, Maintenance, 10/27/23 11:47:00 EDT, Tablet, [facility] #[id number], Partial fill upon patient request if the [...] 09/18/23 10:13:00 EDT, Route to Pharmacy Electronically, [facility] #[id number], Partial... Start Date: 09/18/23 Stop Date: 03/16/24 Status: Ordered duloxetine 30 mg oral enteric coated capsule 1 capsule = 30 mg, By Mouth, 2 times a day, do not crush or chew, # 180 capsule, 3 Refills, Maintenance, 12/15/23 12:15:00 EDT, [facility] #[id number], 170, cm, 11/26/23 7:18:00 EDT, Height, 100, kg, 10/09/23 2:02:00 EDT, Dry Weight Start Date: 12/15/23 Status: Ordered duloxetine 30 mg oral enteric coated capsule 1 capsule = 30 mg, By Mouth, 2 times a day, do not crush or chew, # 180 capsule, 3 Refills, Maintenance, 12/20/22 17:50:00 EDT, [facility] #[id number], 170, cm, 12/06/22 0:43:00 EDT, Height, 94.4, kg, 11/08/22 14:35:00 EDT, Dry Weight Start Date: 12/20/22 Status: Ordered fluconazole 150 mg oral tablet 1 tablet = 150 mg, By Mouth, Once, For treatment of Yeast infection, repeat dose if still having symptoms in 72 hours, # 2 tablet, 0 Refills, Soft Stop, 12/19/23 10:58:00 EDT, Tablet, [facility] #[id number], Partial fill upon patient request if t... Start Date: 12/19/23 Status: Ordered gabapentin 300 mg oral capsule 300 mg, 1, capsule, By Mouth, 3 times a day, # 270 capsule, Refills 1, Tot. Refills 1, Maintenance,12/15/23 12:15:00 EDT, Route to Pharmacy Electronically, [facility] #[id number], Partial fill upon patient request, 170, cm, 11/26/23 7:18:00 EDT,... Start Date: 12/15/23 Status: Ordered gabapentin 300 mg oral capsule 300 mg, 1, capsule, By Mouth, 3 times a day, # 270 capsule, Refills 1, Tot. Refills 1, Maintenance,08/11/23 9:29:00 EDT, Route to Pharmacy Electronically, [facility] #[id number], Partial fill upon patient request, 170, cm, 07/23/23 16:32:00 EDT,... Start Date: 08/11/23 Status: Ordered hydroxychloroquine 200 mg oral tablet 1, tablet, By Mouth, 2 times a day, # 60 tablet, Refills 5, Tot. Refills 5, 12/25/23 9:59:00 EDT, Route to Pharmacy Electronically, [facility] #[id number], 170, cm, 12/19/23 10:38:00 EDT, Height, 100, kg, 10/09/23 2:02:00 EDT, Dry Weight Start Date: 12/25/23 Status: Ordered hydrOXYzine hydrochloride 25 mg oral tablet See Instructions, TAKE 1 TABLET BY MOUTH TWICE DAILY NEEDED FOR ANXIETY, # 60 tablet, 5 Refills,Maintenance, 09/18/23 10:13:00 EDT, [facility] #[id number], 170, cm, 07/23/23 16:32:00 EDT, Height, 100, kg, 04/20/23 21:48:00 EST, Dry Weight Start Date: 09/18/23 Status: Ordered NEBULIZER MACHINE AND TUBING NEBULIZER MACHINE AND TUBING, See Instructions, PRN Wheezing/Shortness of Breath, # 1 each, Refills0, Tot. Refills 0, Maintenance, USE NEEDED FOR WHEEZING DX:, 06/17/23 15:49:00 EST, Supply Start Date: 06/17/23 Status: Ordered NuLYTELY Lemon [place] oral powder for reconstitution 240 mL, By Mouth, Every 10 minutes, # 1 each, 0 Refills, Maintenance, 12/03/23 9:52:00 EDT, REC Powder, [facility] #[id number], Partial fill upon patient request if the prescription is for a schedule II opioid drug., 170, cm, 11/26/23 7:18:00 EDT... Start Date: 12/03/23 Status: Ordered PHENobarbital 30 mg oral tablet 1 tablet = 30 mg, By Mouth, 2 times a day, # 60 tablet, 1 Refills, Maintenance, 11/20/23 16:42:00 EDT, Tablet, [facility] #[id number], IF NOT COVERED, please use goodrx coupon and allow pt to pay OOP; $9.09; BIN [id number]; [facility]; Group [address]; Membe... Start Date: 11/20/23 Status: Ordered PHENobarbital 30 mg oral tablet 1 tablet = 30 mg, By Mouth, 2 times a day, # 60 tablet, 1 Refills, Maintenance, 12/15/23 12:14:00 EDT, Tablet, [facility] #[id number], IF NOT COVERED, please use goodrx coupon and allow pt to pay OOP; $9.09; BIN [id number]; [facility]; [address]; Membe... Start Date: 12/15/23 Status: Ordered risperiDONE 1 mg oral tablet 1 mg, 1, tablet, By Mouth, Daily, # 90 tablet, Refills 1, Tot. Refills 1, Maintenance, 08/11/23 9:29:00 EDT, Route to Pharmacy Electronically, [facility] #[id number], 170, cm, 07/23/23 16:32:00 EDT, Height, 100, kg, 04/20/23 21:48:00 EST, Dry Weight Start Date: 08/11/23 Stop Date: 02/07/24 Status: Ordered Suboxone 8 mg-2 mg Sublingual Film 3 film, Sublingual, Daily, or as directed, # 90 film, 0 Refills, Maintenance, 12/16/23 14:10:00 EDT, [facility] #[id number], Partial fill upon patient request if the prescription is for a schedule II opioid drug. ALVINA [id number], 3 film Sublingual... Start Date: 12/16/23 Stop Date: 01/15/24 Status: Ordered tiZANidine 2 mg oral tablet 2 mg, 1, tablet, By Mouth, 3 times a day, # 84 tablet, Refills 1, Tot. Refills 1, Maintenance, 12/26/23 9:21:00 EDT, Route to Pharmacy Electronically, [facility] #[id number], Partial fill upon patient request if the prescription is for a schedule... Start Date: 12/26/23 Stop Date: 02/20/24 Status: Ordered traZODone 50 mg oral tablet 50 mg, 1, tablet, By Mouth, Daily at bedtime, as needed for sleep, # 90 tablet, Refills 0, Tot. Refills 0, Maintenance, 12/15/23 12:16:00 EDT, Route to Pharmacy Electronically, [facility] #[id number], Partial fill upon patient request if the pres... Start Date: 12/15/23 Status: Ordered Trelegy Ellipta 200 mcg-62.5 mcg-25 mcg/inh inhalation powder 1 puffs, Inhalation, Daily, at the same time every day, # 3 each, 3 Refills, Maintenance, 07/23/23 16:56:00 EDT, Powder, [facility] #[id number], Partial fill upon patient request if the prescription is for a schedule II opioid drug., 1 puffs Inha... Start Date: 07/23/23 Stop Date: 07/17/24 Status: Ordered Ultram 50 mg oral tablet 1 tablet = 50 mg, By Mouth, Every 12 hours, PRN for pain, # 20 tablet, 0 Refills, Maintenance, 10/14/23 9:32:00 EDT, Tablet, [facility] #[id number], Partial fill upon patient request if the prescription is for a schedule II opioid drug., 170, cm,... Start Date: 10/14/23 Status: Ordered Ventolin HFA 108 mcg/inh inhalation aerosol with adapter 2 puffs, Inhalation, 4 times a day, PRN for wheezing, # 1 each, 3 Refills, Maintenance, 05/28/23 12:34:00 EST, Aerosol, [facility] #[id number], Partial fill upon patient request if the prescription is for a schedule II opioid drug., 170, cm, 04/04... Start Date: 05/28/23 Status: Ordered Voltaren Arthritis Pain 1% topical gel = 4 Gm, Topically, 4 times a day, # 480 Gm, 4 Refills, Maintenance, 07/24/23 14:31:00 EDT, [facility] #[id number], Partial fill upon patient request if the [...] Team Personnel Name: Compa Diane NP Position: [facility] PCO Associate Professional Member Role: PCP Address: Address: [address] [place] [address] [place] [address]- Name: Blaire Iglesias [place] Position: [facility] Amb Office Staff Member Role: Primary Care Nurse Name: Rhiannon Li [place] Position: [facility] Amb Office Staff Member Role: Primary Care Nurse Name: Viral Jolly MD Position: [facility] Physician - Behavioral Health Member Role: Lifetime Consulting Physician Address: Address: [address] [place] [address]- Care Team Related Persons Name: MAIN MOSER Address: home [address] [place] [address] Name: JORGE GARCIA Address: home [address] [place] [address] Name: LOREE SIFUENTES
--- OUTSIDE RECORDS SUMMARY | 2024-03-03 23:34 | XMS_ITS | Continuity of Care Document ---
Author Organization [facility] Address [address] [place] [address]- Care Team Providers Care Training Intern Name Role Phone Angela BROWN, Robyn Martinez Primary Care Physician Encounter [facility] Date(s): 10/04/19 - 11/03/19 [facility] [place] [address] [place] [address]- [facility] Attending Physician: Maddie Jones Admitting Physician: AdmtrMaddie Referring Physician: AdmtrMaddie Allergies, Adverse Reactions, Alerts Substance Reaction Severity [...]
--- OUTSIDE RECORDS SUMMARY | 2024-03-03 23:35 | XMS_ITS | Continuity of Care Document ---
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, Compa Hall Primary Care Physician Encounter [facility] Date(s): 04/09/23 - 05/09/23 [facility] [address] [place] [address]- Allergies, Adverse Reactions, Alerts No Known Allergies Immunizations Given and Recorded Vaccine Date Status Refusal Reason SARS-CoV-2 (COVID-19) mRNA BNT-162b2 vac 09/08/20 Recorded SARS-CoV-2 (COVID-19) mRNA BNT-162o1 vac 08/18/20 Recorded pneumococcal 23-valent vaccine 10/21/16 Given tetanus-diphtheria toxoids (Td) 05/05/03 Recorded Medications albuterol-ipratropium 3 mg-0.5 mg/3 ml inhalation solution 3 mL, Inhalation, 4 times a day, PRN Wheezing/Shortness of Breath, DX: J45.909 do not use ventolineand Nebs at the same time, # 90 mL, 11 Refills, Maintenance, 03/25/23 12:53:00 EST, Solution, [email or web address] #[id number], 3 mL Inhalation 4 times a da... Start Date: 03/25/23 Status: Ordered Breo Ellipta 100 mcg-25 mcg/inh inhalation powder 1 puffs, Inhalation, Daily, RINSE MOUTH AFTERWARDS., # 1 each, 3 Refills, 11/21/22 10:33:00 EDT, [email or web address] #[id number], 1 puffs Inhalation Daily,Instr:RINSE MOUTH AFTERWARDS., 170, cm, 11/19/2313:19:00 EDT, Height, 94.4, kg, 11/08/22 14:35:00 E... Start Date: 11/21/22 Status: Ordered cloNIDine 0.1 mg oral tablet 0.05 mg, 0.5, tablet, By Mouth, 4 times a day, PRN, stay hydrated, # 60 tablet, Refills 3, Tot. Refills 3, Maintenance, anxiety, panic, withdrawal symptoms, 03/25/23 12:52:00 EST, Route to Pharmacy Electronically, [email or web address] #[id number], Partial... Start Date: 03/25/23 Status: Ordered duloxetine 30 mg oral enteric coated capsule 1 capsule = 30 mg, By Mouth, 2 times a day, do not crush or chew, # 180 capsule, 3 Refills, Maintenance, 12/20/22 17:50:00 EDT, [facility] #[id number], 170, cm, 12/06/22 0:43:00 EDT, Height, 94.4, kg, 11/08/22 14:35:00 EDT, Dry Weight Start Date: 12/20/22 Status: Ordered gabapentin 300 mg oral capsule 300 mg, 1, capsule, By Mouth, 3 times a day, # 270 capsule, Refills 1, Tot. Refills 1, Maintenance,02/12/23 10:36:00 EDT, Route to Pharmacy Electronically, [facility] #[id number], Partial fill upon patient request, 170, cm, 01/31/23 10:06:00 EDT... Start Date: 02/12/23 Status: Ordered hydroxychloroquine 200 mg oral tablet 1, tablet, By Mouth, 2 times a day, # 60 tablet, Refills 5, Tot. Refills 5, 04/15/23 13:55:00 EST, Route to Pharmacy Electronically, [facility] #[id number], 170, cm, 01/31/23 10:06:00 EDT, Height, 94.4, kg, 11/08/22 14:35:00 EDT, Dry Weight Start Date: 04/15/23 Status: Ordered hydrOXYzine hydrochloride 25 mg oral tablet 1 tablet = 25 mg, By Mouth, Daily, PRN anxiety, for 30 days, # 30 tablet, 3 Refills, Acute 07/23/2411:53:00 EDT, 03/25/23 12:53:00 EST, Tablet, [facility] #[id number], Partial fill upon patientrequest if the prescription is for a schedule II op... Start Date: 03/25/23 Stop Date: 07/23/23 Status: Ordered risperiDONE 1 mg oral tablet 1 mg, 1, tablet, By Mouth, Daily, # 90 tablet, Refills 1, Tot. Refills 1, Maintenance, 02/12/23 10:37:00 EDT, Route to Pharmacy Electronically, [email or web address] #[id number], 170, cm, 01/31/23 10:06:00EDT, Height, 94.4, kg, 11/08/22 14:35:00 EDT, Dry W... Start Date: 02/12/23 Stop Date: 08/11/23 Status: Ordered Suboxone 8 mg-2 mg Sublingual Film 1 film, Sublingual, 3 times a day, dissolve under the tongue, # 90 film, 1 Refills, Maintenance, 03/14/23 10:32:00 EST, [facility] #[id number], Partial fill upon patient request if the prescription is for a schedule II opioid drug. ALVINA [id number];... Start Date: 03/14/23 Stop Date: 05/13/23 Status: Ordered tiZANidine 2 mg oral tablet 2 mg, 1, tablet, By Mouth, 3 times a day, # 21 tablet, Refills 0, Tot. Refills 0, Maintenance, 04/22/23 9:05:00 EST, Route to Pharmacy Electronically, [facility] #[id number], Partial fill upon patient request if the prescription is for a schedule... Start Date: 04/22/23 Stop Date: 04/29/23 Status: Ordered Ventolin HFA 108 mcg/inh inhalation aerosol with adapter 2 puffs, Inhalation, 4 times a day, PRN for wheezing, # 18 Gm, 0 Refills, Maintenance, 04/17/23 15:20:00 EST, Aerosol, [facility] #[id number], Partial fill upon patient request if the prescription is for a schedule II opioid drug., 170, cm, 04/17... Start Date: 04/17/23 Status: Ordered Voltaren Arthritis Pain 1% topical gel = 4 Gm, Topically, 4 times a day, # 480 Gm, 4 Refills, Maintenance, 04/10/23 11:37:00 EST, [facility] #[id number], Partial fill upon patient request if the prescription is for a schedule II opioid drug., 4 Gm Topically 4 times a day, 170, cm, ... Start Date: 04/10/23 Status: Ordered [facility] PAIN RELIEVING LIDOCAINE PATCH 4% Nveloped PAIN RELIEVING LIDOCAINE PATCH 4%, See Instructions, [...] Team Personnel Name: Compa Diane NP Position: [facility] PCO Associate Professional Member Role: PCP Address: Address: [address] [facility] [place] [address]- Name: Blaire Iglesias [place] Position: [facility] RN Member Role: Primary Care Nurse Name: Rhiannon Gibson Position: [facility] RN Member Role: Primary Care Nurse Name: Viral Jolly MD Position: [facility] Physician - Behavioral Health Member Role: Lifetime Consulting Physician Address: Address: [address] [place] [address]- Care Team Related Persons Name: MAIN MOSER Address: home [address] [place] [address] Name: JORGE GARCIA Address: [address] [place] [address] Name: LOREE SIFUENTES
--- OUTSIDE RECORDS SUMMARY | 2024-03-03 23:35 | XMS_ITS | Continuity of Care Document ---
Author Organization [facility] Address [address] [place] [address]- Care Team Providers Care Estate And Trust Tax Principal Name Role Phone Fine CARPENTER PACKING, Compa Hall Primary Care Physician Encounter [facility] Date(s): 09/09/23 - 10/09/[address] [address] Attending Physician: Maddie Jones Admitting Physician: Maddie Jones Referring Physician: Admtr, Ar8 Allergies, Adverse Reactions, [...] 11 Refills, Maintenance, 03/25/23 12:53:00 EST, Solution, [facility] #[id number], 3 mL Inhalation 4 times a da... Start Date: 03/25/23 Status: Ordered Breo Ellipta 100 mcg-25 mcg/inh inhalation powder 1 puffs, Inhalation, Daily, RINSE MOUTH AFTERWARDS., # 1 each, 3 Refills, 11/21/22 10:33:00 EDT, [facility] #[id number], 1 puffs Inhalation Daily,Instr:RINSE MOUTH AFTERWARDS., 170, cm, 11/19/2313:19:00 EDT, Height, 94.4, kg, 11/08/22 14:35:00 E... Start Date: 11/21/22 Status: Ordered cloNIDine 0.1 mg oral tablet 0.05 mg, 0.5, tablet, By Mouth, 4 times a day, PRN, stay hydrated, # 120 tablet, Refills 5, Tot. Refills 5, Maintenance, anxiety, panic, withdrawal symptoms, 09/18/23 10:13:00 EDT, Route to Pharmacy Electronically, [facility] #[id number], Partial... Start Date: 09/18/23 Stop Date: 03/16/24 Status: Ordered duloxetine 30 mg oral enteric coated capsule 1 capsule = 30 mg, By Mouth, 2 times a day, do not crush or chew, # 180 capsule, 3 Refills, Maintenance, 12/20/22 17:50:00 EDT, [facility] #[id number], 170, cm, 12/06/22 0:43:00 EDT, Height, 94.4, kg, 11/08/22 14:35:00 EDT, Dry Weight Start Date: 12/20/22 Status: Ordered gabapentin 300 mg oral capsule 300 mg, 1, capsule, By Mouth, 3 times a day, # 270 capsule, Refills 1, Tot. Refills 1, Maintenance,08/11/23 9:29:00 EDT, Route to Pharmacy Electronically, [facility] #[id number], Partial fill upon patient request, 170, cm, 07/23/23 16:32:00 EDT,... Start Date: 08/11/23 Status: Ordered hydroxychloroquine 200 mg oral tablet 1, tablet, By Mouth, 2 times a day, # 60 tablet, Refills 5, Tot. Refills 5, 04/15/23 13:55:00 EST, Route to Pharmacy Electronically, [facility] #[id number], 170, cm, 01/31/23 10:06:00 EDT, Height, 94.4, kg, 11/08/22 14:35:00 EDT, Dry Weight Start Date: 04/15/23 Status: Ordered hydrOXYzine hydrochloride 25 mg oral tablet See Instructions, TAKE 1 TABLET BY MOUTH TWICE DAILY NEEDED FOR ANXIETY, # 60 tablet, 5 Refills,Maintenance, 09/18/23 10:13:00 EDT, [facility] #[id number], 170, cm, 07/23/23 16:32:00 EDT, Height, 100, kg, 04/20/23 21:48:00 EST, Dry Weight Start Date: 09/18/23 Status: Ordered NEBULIZER MACHINE AND TUBING NEBULIZER MACHINE AND TUBING, See Instructions, PRN Wheezing/Shortness of Breath, # 1 each, Refills0, Tot. Refills 0, Maintenance, USE NEEDED FOR WHEEZING DX:, 06/17/23 15:49:00 EST, Supply Start Date: 06/17/23 Status: Ordered risperiDONE 1 mg oral tablet 1 mg, 1, tablet, By Mouth, Daily, # 90 tablet, Refills 1, Tot. Refills 1, Maintenance, 08/11/23 9:29:00 EDT, Route to Pharmacy Electronically, [facility] #[id number], 170, cm, 07/23/23 16:32:00 EDT, Height, 100, kg, 04/20/23 21:48:00 EST, Dry Weight Start Date: 08/11/23 Stop Date: 02/07/24 Status: Ordered Suboxone 8 mg-2 mg Sublingual Film 1 film, Sublingual, 3 times a day, dissolve under the tongue, # 90 film, 1 Refills, Maintenance, 09/12/23 9:01:00 EDT, [facility] #[id number], Partial fill upon patient request if the prescription is for a schedule II opioid drug. ALVINA [id number];... Start Date: 09/12/23 Stop Date: 11/11/23 Status: Ordered tiZANidine 2 mg oral tablet 2 mg, 1, tablet, By Mouth, 3 times a day, # 84 tablet, Refills 1, Tot. Refills 1, Maintenance, 09/08/23 18:10:00 EDT, Route to Pharmacy Electronically, [facility] #[id number], Partial fill upon patient request if the prescription is for a schedul... Start Date: 09/08/23 Stop Date: 11/03/23 Status: Ordered Trelegy Ellipta 200 mcg-62.5 mcg-25 mcg/inh inhalation powder 1 puffs, Inhalation, Daily, at the same time every day, # 3 each, 3 Refills, Maintenance, 07/23/23 16:56:00 EDT, Powder, [facility] #[id number], Partial fill upon patient request if the prescription is for a schedule II opioid drug., 1 puffs Inha... Start Date: 07/23/23 Stop Date: 07/17/24 Status: Ordered Ventolin HFA 108 mcg/inh inhalation aerosol with adapter 2 puffs, Inhalation, 4 times a day, PRN for wheezing, # 1 each, 3 Refills, Maintenance, 05/28/23 12:34:00 EST, Aerosol, [facility] #[id number], Partial fill upon patient request if the prescription is for a schedule II opioid drug., 170, cm, 04/04... Start Date: 05/28/23 Status: Ordered Voltaren Arthritis Pain 1% topical gel = 4 Gm, Topically, 4 times a day, # 480 Gm, 4 Refills, Maintenance, 07/24/23 14:31:00 EDT, [facility] #[id number], Partial fill upon patient request if the [...] Team Personnel Name: Compa Diane NP Position: [facility] PCO Associate Professional Member Role: PCP Address: Address: [address] [place] [address] [place] [address]- Name: Blaire Iglesias [place] Position: [facility] Office Staff Member Role: Primary Care Nurse Name: Rhiannon Li [place] Position: [facility] Office Staff Member Role: Primary Care Nurse Name: Viral Jolly MD Position: [facility] Physician - Behavioral Health Member Role: Lifetime Consulting Physician Address: Address: [address] [place] [id number]- Care Team Related Persons Name: MAIN MOSER Address: home [address] [place] [address] Name: JORGE GARCIA Address: [address] [place] [address] Name: LOREE SIFUENTES
--- OUTSIDE RECORDS SUMMARY | 2024-03-03 23:35 | XMS_ITS | Continuity of Care Document ---
Author Organization [facility] Address [address] [place] [address]- Care Team Providers Care Clinic Receptionist Name Role Phone Compa Diane NP Primary Care Physician [place] [facility] Date(s): 12/13/22 - 04/12/23 [facility] [address] [place] [address]- Referring Physician: Compa Diane NP Allergies, Adverse Reactions, Alerts No Known Allergies [...] 11 Refills, Maintenance, 03/25/23 12:53:00 EST, Solution, [facility] #[id number], 3 mL Inhalation 4 times a da... Start Date: 03/25/23 Status: Ordered Breo Ellipta 100 mcg-25 mcg/inh inhalation powder 1 puffs, Inhalation, Daily, [employer] AFTERWARDS., # 1 each, 3 Refills, 11/21/22 10:33:00 EDT, [facility] #[id number], 1 puffs Inhalation Daily,Instr:RINSE MOUTH AFTERWARDS., 170, cm, 11/19/2313:19:00 EDT, Height, 94.4, kg, 11/08/22 14:35:00 E... Start Date: 11/21/22 Status: Ordered Caltrate 600 + D oral tablet 1 tablet, By Mouth, 2 times a day, # 60 tablet, 11 Refills, Maintenance, 04/10/23 11:37:00 EST, Tablet, [facility] #[id number], Partial fill upon patient request if the [...] 03/25/23 12:52:00 EST, Route to Pharmacy Electronically, [facility] #[id number], Partial... Start Date: 03/25/23 Status: Ordered duloxetine 30 mg oral enteric coated capsule 1 capsule = 30 mg, By Mouth, 2 times a day, do not crush or chew, # 180 capsule, 3 Refills, Maintenance, 12/20/22 17:50:00 EDT, [facility] #[id number], 170, cm, 12/06/22 0:43:00 EDT, Height, 94.4, kg, 11/08/22 14:35:00 EDT, Dry Weight Start Date: 12/20/22 Status: Ordered famotidine 20 mg oral tablet 20 mg, 1, tablet, By Mouth, Daily, OV 5-6-20, # 30 tablet, Refills 5, Tot. Refills 5, Maintenance, 08/21/20 12:25:00 EDT, Route to Pharmacy Electronically, [facility]/pharmacy #[id number], 170, cm, 08/16/20 15:32:00 EDT, Height, 107.3, kg, 06/22/20 13:29:00 EST, D... Start Date: 08/21/20 Status: Ordered gabapentin 300 mg oral capsule 300 mg, 1, capsule, By Mouth, 3 times a day, # 270 capsule, Refills 1, Tot. Refills 1, Maintenance,02/12/23 10:36:00 EDT, Route to Pharmacy Electronically, [facility] #[id number], Partial fill upon patient request, 170, cm, 01/31/23 10:06:00 EDT... Start Date: 02/12/23 Status: Ordered hydroxychloroquine 200 mg oral tablet 1, tablet, By Mouth, 2 times a day, # 60 tablet, Refills 5, Tot. Refills 5, 05/16/22 16:23:00 EST, Route to Pharmacy Electronically, [facility][id number], 175, cm, 05/01/22 15:32:00 EST, Height, 75, kg, 05/01/22 15:32:00 EST, Dry Weight Start Date: 05/16/22 Status: Ordered hydrOXYzine hydrochloride 25 mg oral tablet 1 tablet = 25 mg, By Mouth, Daily, PRN anxiety, for 30 days, # 30 tablet, 3 Refills, Acute 07/23/2411:53:00 EDT, 03/25/23 12:53:00 EST, Tablet, [facility][id number], Partial fill upon patientrequest if the prescription is for a schedule II op... Start Date: 03/25/23 Stop Date: 07/23/23 Status: Ordered ProAir HFA 90 mcg/inh inhalation aerosol 2 puffs, Inhalation, Every 4 to 6 hours, PRN NEEDED FOR SHORTNESS OF BREATH OR WHEEZING, # 18 Gm, 5 Refills, 02/04/23 10:36:00 EDT, [facility] #[id number], 2 puffs Inhalation Every 4 to 6 hours,PRN: NEEDED FOR SHORTNESS OF BREATH OR WHEEZING... Start Date: 02/04/23 Status: Ordered risperiDONE 1 mg oral tablet 1 mg, 1, tablet, By Mouth, Daily, # 90 tablet, Refills 1, Tot. Refills 1, Maintenance, 02/12/23 10:37:00 EDT, Route to Pharmacy Electronically, [facility][id number], 170, cm, 01/31/23 10:06:00EDT, Height, 94.4, kg, 11/08/22 14:35:00 EDT, Dry W... Start Date: 02/12/23 Stop Date: 08/11/23 Status: Ordered Suboxone 8 mg-2 mg Sublingual Film 1 film, Sublingual, 3 times a day, dissolve under the tongue, # 90 film, 1 Refills, Maintenance, 03/14/23 10:32:00 Jobaline, [facility] #[id number], Partial fill upon patient request if the prescription is for a schedule II opioid drug. ALVINA [id number];... Start Date: 03/14/23 Stop Date: 05/13/23 Status: [...] 480 Gm, 4 Refills, Maintenance, [facility]/10/23 11[facility]37[id number] Partial fill upon patient request if the [...] Team Personnel Name: Compa Diane NP Position: [facility] PCO Associate Professional Member Role: PCP Address: Address: [address] [facility] [place] [address]- Name: Blaire Iglesias [place] Position: [facility] RN Member Role: Primary Care Nurse Name: Rhiannon Gibson Position: [facility] RN Member Role: Primary Care Nurse Name: Viral Jolly MD Position: [facility] Physician - Behavioral Health Member Role: Lifetime Consulting Physician Address: Address: [address] [place] [address]- Care Team Related Persons Name: MAIN MOSER Address: home [address] [place] [address] Name: JORGE GARCIA Address: home [address] [place] [address] Name: LOREE SIFUENTES
--- OUTSIDE RECORDS SUMMARY | 2024-03-03 23:35 | XMS_ITS | Continuity of Care Document ---
Author Organization [facility] Address [address] [place] [address]- Care Team Providers Care Assistant Plant Manager Name Role Phone Angela BROWN, Robyn Martinez Primary Care Physician Encounter [facility] Date(s): 06/29/19 - 07/09/19 [facility] [address] [place] [address]- [facility] Attending Physician: Maddie Jones Admitting Physician: AdmMaddie childs Referring Physician: AdmtrMaddie Allergies, Adverse Reactions, Alerts [...]
--- OUTSIDE RECORDS SUMMARY | 2024-03-03 23:35 | XMS_ITS | Continuity of Care Document ---
Author Organization [facility] Address [address] [place] [address]- Care Team Providers Care Medical Voucher Clerk Name Role Phone Angela BROWN, Robyn Martinez Primary Care Physician Encounter [facility] Date(s): 03/24/20 - 04/23/20 [facility] [place] [address] [place] [address]- Allergies, Adverse Reactions, Alerts Substance Reaction Severity [...]
--- OUTSIDE RECORDS SUMMARY | 2024-03-03 23:35 | XMS_ITS | Continuity of Care Document ---
Author Organization [facility] Address [address] [place] [address]- Care Team Providers Care Rn Cardiovascular Name Role Phone Angela BROWN, Robyn Martinez Primary Care Physician Encounter [facility] Date(s): 07/07/20 - 08/06/20 [facility] [place] [address] [place] [address]- Allergies, Adverse Reactions, Alerts Substance Reaction Severity [...] Refills, Maintenance, 06/19/20 16:07:00 EST, [id number], 20, INHALE 2 PUFFS BY MOUTH EVERY 4 TO 6 HOURS NEEDED FOR WHEEZE FOR SHORTNESS... Start Date: 06/19/20 Status: Ordered Suboxone 8 mg-2 mg sublingual film 2.5 FILMS, Sublingual, Daily, [id number], # 75 film, 1 Refills, Maintenance, 04/26/20 16:38:00 EST, [facility] #[id number], 2.5 FILMS Sublingual Daily,Instr:[id number], 163, cm, 04/26/20 14:26:00 EST, Height, 105, [...]
--- OUTSIDE RECORDS SUMMARY | 2024-03-03 23:35 | XMS_ITS | Continuity of Care Document ---
Author Organization [facility] [place] Address [address] [place] [address]- Care Team Providers Care Habilitation Specialist Name Role Phone Gen BROWN, Claribel Primary Care Physician [phone] Encounter [facility] Date(s): 05/02/22 - 06/01/22 [facility] [place] [address] [place] [address]- Allergies, Adverse Reactions, Alerts No Known Allergies [...] # 60 each, 1 Refills, [facility], 30, INHALE 1 PUFF BY MOUTH EVERY DAY. RIN[employer] MOU[employer] AFTERWARDS., 170, cm, 03/07/21 11:09:00 EDT, Height, 107.3, kg, 06/22/20 13:29:00 EST, Dry Weight Start Date: 11/12/21 Status: Ordered diclofenac 1% topical gel = 2 Gm, Topically, 2 times a day, # 100 Gm, 2 Refills, 05/16/22 16:23:00 EST, [facility] #[id number], 25, 2 Gm Topically 2 times a day, 175, cm, 05/01/22 15:32:00 EST, Height, 75, kg, 05/01/22 15:32:00 EST, Dry Weight Start Date: 05/16/22 Status: Ordered duloxetine 30 mg oral enteric coated capsule 1 capsule = 30 mg, By Mouth, 2 times a day, do not crush or chew, # 180 capsule, 3 Refills, Maintenance, 02/19/22 14:28:00 EDT, [facility] #[id number], 170, cm, 03/07/21 11:09:00 EDT, Height, 107.3, kg, 06/22/20 13:29:00 EST, Dry Weight Start Date: 02/19/22 Status: Ordered famotidine 20 mg oral tablet 20 mg, 1, tablet, By Mouth, Daily, OV 5-6-20, # 30 tablet, Refills 5, Tot. Refills 5, Maintenance, 08/21/20 12:25:00 EDT, Route to Pharmacy Electronically, [facility]/pharmacy #0969, 170, cm, 08/16/20 15:32:00 EDT, Height, 107.3, kg, 06/22/20 13:29:00 EST, D... Start Date: 08/21/20 Status: Ordered gabapentin 300 mg oral capsule 300 mg, 1, capsule, By Mouth, 3 times a day, # 270 capsule, Refills 1, Tot. Refills 1, Maintenance,08/21/21 14:14:00 EDT, Route to Pharmacy Electronically, [facility] #[id number], Partial fill upon patient request, 170, cm, 03/07/21 11:09:00 EDT... Start Date: 08/21/21 Status: Ordered gabapentin 300 mg oral capsule 300 mg, 1, capsule, By Mouth, 3 times a day, # 270 capsule, Refills 3, Tot. Refills 3, Maintenance,02/19/22 14:28:00 EDT, Route to Pharmacy Electronically, [facility] #[id number], Partial fill upon patient request, 170, cm, 03/07/21 11:09:00 EDT... Start Date: 02/19/22 Status: Ordered hydroxychloroquine 200 mg oral tablet 1, tablet, By Mouth, 2 times a day, # 60 tablet, Refills 5, Tot. Refills 5, 05/16/22 16:23:00 EST, Route to Pharmacy Electronically, [facility] #[id number], 175, cm, 05/01/22 15:32:00 EST, Height, 75, [...] 18 Gm, 5 Refills, 03/20/22 16:08:00 EST, [facility] #[id number], 2 puffs Inhalation Every 4 to 6 hours,PRN: NEEDED FOR SHORTNESS OF BREATH OR WHEEZING... Start Date: 03/20/22 Status: Ordered risperiDONE 1 mg oral tablet 1 mg, 1, tablet, By Mouth, Daily, # 90 tablet, Refills 3, Tot. Refills 3, Maintenance, 02/19/22 14:27:00 EDT, Route to Pharmacy Electronically, [facility] #[id number], 170, cm, 03/07/21 11:09:00EDT, Height, 107.3, kg, 06/22/20 13:29:00 EST, Dry... Start Date: 02/19/22 Stop Date: 02/14/23 Status: Ordered Suboxone 8 mg-2 mg Sublingual Film 1 film, Sublingual, 3 times a day, dissolve under the tongue, # 21 film, 0 Refills, Maintenance, 04/05/22 8:36:00 EST, [facility] #[id number], Partial fill upon patient request if the prescription is for a schedule II opioid drug. ALVINA [id number],... Start Date: 04/05/22 Stop Date: 04/12/22 Status: Ordered Suboxone 8 mg-2 mg Sublingual Film 1 film, Sublingual, 3 times a day, dissolve under the tongue, # 90 film, 1 Refills, Maintenance, 02/08/22 13:04:00 EDT, [facility] #[id number], Partial fill upon patient request if the prescription is for a schedule II opioid drug. ALVINA [id number],... Start Date: 02/08/22 Stop Date: 04/09/22 Status: Ordered Suboxone 8 mg-2 mg Sublingual Film 1 film, Sublingual, 3 times a day, dissolve under the tongue, # 90 film, 1 Refills, Maintenance, 05/10/22 14:12:00 EST, [facility] #[id number], Partial fill upon patient request if the prescription is for a schedule II opioid drug. [facility] [id number],... Start Date: 05/10/22 Stop Date: 07/09/22 Status: Ordered Suboxone 8 mg-2 mg Sublingual Film 1 film, Sublingual, 3 times a day, dissolve under the tongue, # 90 film, 1 Refills, Maintenance, 12/10/21 14:40:00 EDT, [facility] #[id number], Partial fill upon patient request if the prescription is for a schedule II opioid drug. [facility] [id number],... Start Date: 12/10/21 Stop Date: 02/08/22 Status: Ordered Suboxone 8 mg-2 mg Sublingual Film 1 film, Sublingual, 3 times a day, dissolve under the tongue, # 21 film, 0 Refills, Maintenance, 04/12/22 14:58:00 EST, [facility] #[id number], Partial fill upon patient request if the prescription is for a schedule II opioid drug. [facility]INA [id number],... Start Date: 04/12/22 Stop Date: 04/19/22 Status: Ordered Suboxone 8 mg-2 mg sublingual film 3 film, Sublingual, Daily, [id number], # 90 film, 1 Refills, Maintenance, 10/21/21 9:55:00 EDT, [facility] #[id number], 3 film Sublingual Daily,x30 days,Instr:[id number], 170, cm, 03/07/21 11:09:00 EDT, Height, 107.3, kg, 06/22/20 13:29:00 EST, Dry... Start Date: 10/21/21 Stop Date: 12/20/21 Status: Ordered traZODone 50 mg oral tablet 50 mg, 1, tablet, By Mouth, Daily at bedtime, PRN, as needed, # 90 tablet, Refills 3, Tot. Refills 3, Maintenance, Sleep, 02/19/22 14:27:00 EDT, Route to Pharmacy Electronically, [facility]#[id number], 170, cm, 03/07/21 11:09:00 EDT, Height, 107... [...] Care Team Personnel Name: Blaire Crandall Position: [facility] RN Member Role: Primary Care Nurse Name: Rhiannon Gibson Position: [facility] RN Member Role: Primary Care Nurse Name: Claribel Blevins NP Position: [facility] PCO Associate Professional Member Role: PCP Address: Address: [address] [place] [address]- Name: Viral Jolly MD Position: [facility] Psychiatry MD Member Role: Lifetime Consulting Physician Address: Address: [address] [place] [address]- Care Team Related Persons Name: MAIN MOSER Address: home [address] [place] [address] Name: JORGE GARCIA Address: home [address] [place] [address]
--- OUTSIDE RECORDS SUMMARY | 2024-03-03 23:35 | XMS_ITS | Continuity of Care Document ---
Author Organization [facility] Address [address] [place] [address]- Care Team Providers Care Application Development Team Lead Name Role Phone Roxi BROWN, Compa Hall Primary Care Physician Encounter [facility] Date(s): 04/10/23 - 06/21/23 [facility] [address] [place] [address]- Attending Physician: Milton Mcnulty MD Allergies, Adverse Reactions, Alerts No Known [...] 11 Refills, Maintenance, 03/25/23 12:53:00 EST, Solution, [facility] #[id number], 3 mL Inhalation 4 times a da... Start Date: 03/25/23 Status: Ordered Breo Ellipta 100 mcg-25 mcg/inh inhalation powder 1 puffs, Inhalation, Daily, [employer]WARDS., # 1 each, 3 Refills, 11/21/22 10:33:00 EDT, [facility] #[id number], 1 puffs Inhalation Daily,Instr:RINSE MOUTH AFTERWARDS., 170, cm, 11/19/2313:19:00 EDT, Height, 94.4, kg, 11/08/22 14:35:00 E... Start Date: 11/21/22 Status: Ordered cloNIDine 0.1 mg oral tablet 0.05 mg, 0.5, tablet, By Mouth, 4 times a day, PRN, stay hydrated, # 120 tablet, Refills 3, Tot. Refills 3, Maintenance, anxiety, panic, withdrawal symptoms, 03/25/23 12:52:00 EST, Route to Pharmacy Electronically, [facility] #[id number], Partial... Start Date: 03/25/23 Stop Date: 09/10/23 Status: Ordered duloxetine 30 mg oral enteric coated capsule 1 capsule = 30 mg, By Mouth, 2 times a day, do not crush or chew, # 180 capsule, 3 Refills, Maintenance, 12/20/22 17:50:00 EDT, [facility] #[id number], 170, cm, 12/06/22 0:43:00 EDT, Height, 94.4, kg, 11/08/22 14:35:00 EDT, Dry Weight Start Date: 12/20/22 Status: Ordered gabapentin 300 mg oral capsule 300 mg, 1, capsule, By Mouth, 3 times a day, # 270 capsule, Refills 1, Tot. Refills 1, Maintenance,02/12/23 10:36:00 EDT, Route to Pharmacy Electronically, [facility] #[id number], Partial fill upon patient request, 170, cm, 01/31/23 10:06:00 EDT... Start Date: 02/12/23 Status: Ordered hydroxychloroquine 200 mg oral tablet 1, tablet, By Mouth, 2 times a day, # 60 tablet, Refills 5, Tot. Refills 5, 04/15/23 13:55:00 EST, Route to Pharmacy Electronically, [facility] #[id number], 170, cm, 01/31/23 10:06:00 EDT, Height, 94.4, kg, 11/08/22 14:35:00 EDT, Dry Weight Start Date: 04/15/23 Status: Ordered hydrOXYzine hydrochloride 25 mg oral tablet 1 tablet = 25 mg, By Mouth, Daily, PRN anxiety, for 30 days, # 30 tablet, 3 Refills, Acute 07/23/2411:53:00 EDT, 03/25/23 12:53:00 EST, Tablet, [facility] #[id number], Partial fill upon patientrequest if the prescription is for a schedule II op... Start Date: 03/25/23 Stop Date: 07/23/23 Status: Ordered NEBULIZER MACHINE AND TUBING NEBULIZER [...] 02/12/23 10:37:00 EDT, Route to Pharmacy Electronically, [facility] #[id number], 170, cm, 01/31/23 10:06:00EDT, Height, 94.4, kg, 11/08/22 14:35:00 EDT, Dry W... Start Date: 02/12/23 Stop Date: 08/11/23 Status: Ordered Suboxone 8 mg-2 mg Sublingual Film 1 film, Sublingual, 3 times a day, dissolve under the tongue, # 90 film, 1 Refills, Maintenance, 05/14/23 11:49:00 EST, [facility] #[id number], Partial fill upon patient request if the prescription is for a schedule II opioid drug. [facility]VINA [id number];... Start Date: 05/14/23 Stop Date: 07/13/23 Status: Ordered tiZANidine 2 mg oral tablet 2 mg, 1, tablet, By Mouth, 3 times a day, # 21 tablet, Refills 0, Tot. Refills 0, Maintenance, 04/22/23 9:05:00 EST, Route to Pharmacy Electronically, [facility] #[id number], Partial fill upon patient request if the prescription is for a schedule... Start Date: 04/22/23 Stop Date: 04/29/23 Status: Ordered Ventolin HFA 108 mcg/inh inhalation aerosol with adapter 2 puffs, Inhalation, 4 times a day, PRN for wheezing, # 1 each, 3 Refills, Maintenance, 05/28/23 12:34:00 EST, Aerosol, [facility] #[id number], Partial fill upon patient request if the prescription is for a schedule II opioid drug., 170, cm, 04/04... Start Date: 05/28/23 Status: Ordered Voltaren Arthritis Pain 1% topical gel = 4 Gm, Topically, 4 times a day, # 480 Gm, 4 Refills, Maintenance, 04/10/23 11:37:00 EST, [facility] #[id number], Partial fill upon patient request if the prescription is for a schedule II opioid drug., 4 Gm Topically 4 times a day, 170, cm, ... Start Date: 04/10/23 Status: Ordered [facility] PAIN RELIEVING LIDOCAINE PATCH [...] Personnel Name: Roxi BROWN, Compa Hall Position: [facility] PCO Associate Professional Member Role: PCP Address: Address: [address] [place] [address] [place] [address]- Name: Blaire Iglesias [place] Position: [facility] RN Member Role: Primary Care Nurse Name: Rhiannon Gibson Position: [facility] RN Member Role: Primary Care Nurse Name: Viral Jolly MD Position: [facility] Physician - Behavioral Health Member Role: Lifetime Consulting Physician Address: Address: [address] [place] [address]- Care Team Related Persons Name: MAIN MOSER Address: [address] [place] [address] Name: JORGE GARCIA Address: home [address] [place] [address] Name: LOREE SIFUENTES
--- OUTSIDE RECORDS SUMMARY | 2024-03-03 23:35 | XMS_ITS | Continuity of Care Document ---
Author Organization [facility] Address [address] [place] [address]- Care Team Providers Care Hammerer Helper Name Role Phone Robyn Miller NP Primary Care Physician Encounter [facility] Date(s): 04/07/20 - 06/23/[address] [address]- Attending Physician: Robyn Miller NP Admitting Physician: Robyn Miller NP Referring Physician: Roybn Miller NP Allergies, Adverse Reactions, Alerts Substance [...] 11 Refills, Maintenance, 05/31/19 17:40:00 EST, Solution, [facility] #0969, 3 mL Inhalation 4 times a day,PRN:Whe... Start Date: 05/31/19 Status: Ordered ProAir HFA 90 mcg/inh inhalation aerosol 2 puffs, Inhalation, Every 4 to 6 hours, PRN NEEDED FOR WHEEZE FOR SHORTNESS OF BREATH, # 18 Unknown, 11 Refills, Maintenance, 06/19/20 16:07:00 EST, [id number], 20, INHALE 2 PUFFS BY MOUTH EVERY 4 TO 6 HOURS NEEDED FOR WHEEZE FOR SHORTNESS... Start Date: 06/19/20 Status: Ordered Suboxone 8 mg-2 mg sublingual film 2.5 FILMS, Sublingual, Daily, [id number], # 75 film, 1 Refills, Maintenance, 04/26/20 16:38:00 EST, [facility] #[id number], 2.5 FILMS Sublingual Daily,Instr:[id number], 163, cm, 04/26/20 14:26:00 EST, Height, 105, [...]
--- OUTSIDE RECORDS SUMMARY | 2024-03-03 23:35 | XMS_ITS | Continuity of Care Document ---
Author Organization [facility] [place] Address [address] [place] [address]- Care Team Providers Care Commercial Mortgage Broker Name Role Phone Fine BUSINESS SERVICES ASSOCIATE, Compa Hall Primary Care Physician Encounter [facility] Date(s): 01/12/24 - 02/11/24 [facility] [place] [address] [place] [address]- Allergies, Adverse Reactions, Alerts No Known Allergies Immunizations Given and Recorded Vaccine Date Status Refusal Reason SARS-CoV-2 (COVID-19) mRNA BNT-162b2 vac 09/08/20 Recorded SARS-CoV-2 (COVID-19) mRNA BNT-162m9 vac 08/18/20 Recorded pneumococcal 23-valent vaccine 10/21/16 Given tetanus-diphtheria toxoids (Td) 05/05/03 Recorded Medications albuterol-ipratropium 3 mg-0.5 mg/3 ml inhalation solution 3 mL, Inhalation, 4 times a day, PRN Wheezing/Shortness of Breath, DX: J45.909 do not use ventolineand Nebs at the same time, # 90 mL, 11 Refills, Maintenance, 03/25/23 12:53:00 EST, Solution, [facility] #[id number], 3 mL Inhalation 4 times a da... Start Date: 03/25/23 Status: Ordered Breo Ellipta 100 mcg-25 mcg/inh inhalation powder 1 puffs, Inhalation, Daily, RINSE MOUTH AFTERWARDS., # 1 each, 3 Refills, 11/21/22 10:33:00 EDT, [facility] #[id number], 1 puffs Inhalation Daily,Instr:RINSE MOUTH AFTERWARDS., 170, cm, 11/19/2313:19:00 EDT, Height, 94.4, kg, 11/08/22 14:35:00 E... Start Date: 11/21/22 Status: Ordered calcium (as citrate)-vitamin D 315 mg-250 intl units oral tablet 2 tablet, By Mouth, 2 times a day, # 120 tablet, 11 Refills, Maintenance, 10/27/23 11:47:00 EDT, Tablet, [facility] #[id number], Partial fill upon patient request if the prescription is for a schedule II opioid drug., 2 tablet By Mouth 2 times a... Start Date: 10/27/23 Status: Ordered cloNIDine 0.1 mg oral tablet 0.05 mg, 0.5, tablet, By Mouth, 4 times a day, PRN, stay hydrated, # 120 tablet, Refills 5, Tot. Refills 5, Maintenance, anxiety, panic, withdrawal symptoms, 02/09/24 16:21:00 EDT, Route to Pharmacy Electronically, [facility] #[id number], Partial... Start Date: 02/09/24 Stop Date: 08/07/24 Status: Ordered duloxetine 30 mg oral enteric coated capsule 1 capsule = 30 mg, By Mouth, 2 times a day, do not crush or chew, # 180 capsule, 3 Refills, Maintenance, 12/15/23 12:15:00 EDT, [facility] #[id number], 170, cm, 11/26/23 7:18:00 EDT, Height, 100, kg, 10/09/23 2:02:00 EDT, Dry Weight Start Date: 12/15/23 Status: Ordered duloxetine 30 mg oral enteric coated capsule 1 capsule = 30 mg, By Mouth, 2 times a day, do not crush or chew, # 180 capsule, 3 Refills, Maintenance, 12/20/22 17:50:00 EDT, [facility] #[id number], 170, cm, 12/06/22 0:43:00 EDT, Height, 94.4, kg, 11/08/22 14:35:00 EDT, Dry Weight Start Date: 12/20/22 Status: Ordered fluconazole 150 mg oral tablet 1 tablet = 150 mg, By Mouth, Once, For treatment of Yeast infection, repeat dose if still having symptoms in 72 hours, # 2 tablet, 0 Refills, Soft Stop, 12/19/23 10:58:00 EDT, Tablet, [facility] #61319, Partial fill upon patient request if t... Start Date: 12/19/23 Status: Ordered gabapentin 300 mg oral capsule 300 mg, 1, capsule, By Mouth, 3 times a day, # 270 capsule, Refills 1, Tot. Refills 1, Maintenance,12/15/23 12:15:00 EDT, Route to Pharmacy Electronically, [facility] #[id number], Partial fill upon patient request, 170, cm, 11/26/23 7:18:00 EDT,... Start Date: 12/15/23 Status: Ordered gabapentin 300 mg oral capsule 300 mg, 1, capsule, By Mouth, 3 times a day, # 270 capsule, Refills 1, Tot. Refills 1, Maintenance,08/11/23 9:29:00 EDT, Route to Pharmacy Electronically, [facility] #59553, Partial fill upon patient request, 170, cm, 07/23/23 16:32:00 EDT,... Start Date: 08/11/23 Status: Ordered hydroxychloroquine 200 mg oral tablet 1, tablet, By Mouth, 2 times a day, # 60 tablet, Refills 5, Tot. Refills 5, 12/25/23 9:59:00 EDT, Route to Pharmacy Electronically, [facility] #[id number], 170, cm, 12/19/23 10:38:00 EDT, Height, 100, kg, 10/09/23 2:02:00 EDT, Dry Weight Start Date: 12/25/23 Status: Ordered hydrOXYzine hydrochloride 25 mg oral tablet See Instructions, TAKE 1 TABLET BY MOUTH TWICE DAILY NEEDED FOR ANXIETY, # 60 tablet, 5 Refills,Maintenance, 02/09/24 16:21:00 EDT, [facility] #[id number], 170, cm, 02/02/24 10:19:00 EDT, Height, 100, kg, 10/09/23 2:02:00 EDT, Dry Weight Start Date: 02/09/24 Status: Ordered NEBULIZER MACHINE AND TUBING NEBULIZER MACHINE AND TUBING, See Instructions, PRN Wheezing/Shortness of Breath, # 1 each, Refills0, Tot. Refills 0, Maintenance, USE NEEDED FOR WHEEZING DX:, 06/17/23 15:49:00 EST, Supply Start Date: 06/17/23 Status: Ordered NuLYTELY [place] oral powder for reconstitution 240 mL, By Mouth, Every 10 minutes, # 1 each, 0 Refills, Maintenance, 12/03/23 9:52:00 EDT, REC Powder, [facility] #14386, Partial fill upon patient request if the prescription is for a schedule II opioid drug., 170, cm, 11/26/23 7:18:00 EDT... Start Date: 12/03/23 Status: Ordered PHENobarbital 30 mg oral tablet 1 tablet = 30 mg, By Mouth, 2 times a day, # 60 tablet, 1 Refills, Maintenance, 12/15/23 12:14:00 EDT, Tablet, [facility] #63217, IF NOT COVERED, please use goodrx coupon and allow pt to pay OOP; $9.09; BIN [id number]; [facility]; Group [address]; Membe... Start Date: 12/15/23 Status: Ordered PHENobarbital 30 mg oral tablet 1 tablet = 30 mg, By Mouth, 2 times a day, # 60 tablet, 1 Refills, Maintenance, 02/09/24 16:21:00 EDT, Tablet, [facility] #08598, IF NOT COVERED, please use goodrx coupon and allow pt to pay OOP; $9.09; BIN [id number]; [facility]; [address]; Membe... Start Date: 02/09/24 Status: Ordered risperiDONE 1 mg oral tablet 1 mg, 1, tablet, By Mouth, Daily, # 90 tablet, Refills 1, Tot. Refills 1, Maintenance, 02/09/24 16:21:00 EDT, Route to Pharmacy Electronically, [facility] #12055, 170, cm, 02/02/24 10:19:00EDT, Height, 100, kg, 10/09/23 2:02:00 EDT, Dry Weight Start Date: 02/09/24 Stop Date: 08/07/24 Status: Ordered Suboxone 8 mg-2 mg Sublingual Film 3 film, Sublingual, Daily, or as directed, # 90 film, 0 Refills, Maintenance, 12/16/23 14:10:00 EDT, [facility] #[id number], Partial fill upon patient request if the prescription is for a schedule II opioid drug. ALVINA [id number], 3 film Sublingual... Start Date: 12/16/23 Stop Date: 01/15/24 Status: Ordered tiZANidine 2 mg oral tablet 2 mg, 1, tablet, By Mouth, 3 times a day, # 84 tablet, Refills 1, Tot. Refills 1, Maintenance, 12/26/23 9:21:00 EDT, Route to Pharmacy Electronically, [facility] #48978, Partial fill upon patient request if the prescription is for a schedule... Start Date: 12/26/23 Stop Date: 02/20/24 Status: Ordered Trelegy Ellipta 200 mcg-62.5 mcg-25 mcg/inh inhalation powder 1 puffs, Inhalation, Daily, at the same time every day, # 3 each, 3 Refills, Maintenance, 07/23/23 16:56:00 EDT, Powder, [facility] #[id number], Partial fill upon patient request if the prescription is for a schedule II opioid drug., 1 puffs Inha... Start Date: 07/23/23 Stop Date: 07/17/24 Status: Ordered Ultram 50 mg oral tablet 1 tablet = 50 mg, By Mouth, Every 12 hours, PRN for pain, # 20 tablet, 0 Refills, Maintenance, 10/14/23 9:32:00 EDT, Tablet, [facility] #[id number], Partial fill upon patient request if the prescription is for a schedule II opioid drug., 170, cm,... Start Date: 10/14/23 Status: Ordered Ventolin HFA 108 mcg/inh inhalation aerosol with adapter 2 puffs, Inhalation, 4 times a day, PRN for wheezing, # 3 each, 1 Refills, Maintenance, 02/10/24 10:15:00 EDT, Aerosol, [facility] #51233, Partial fill upon patient request if the prescription is for a schedule II opioid drug., 170, cm, 3... Start Date: 02/10/24 Status: Ordered Voltaren Arthritis Pain 1% topical gel = 4 Gm, Topically, 4 times a day, # 480 Gm, 4 Refills, Maintenance, 07/24/23 14:31:00 EDT, [facility] #15183, Partial fill upon patient request if the prescription is for a schedule II opioid drug., 4 Gm Topically 4 times a day, 170, cm, ... Start Date: 07/24/23 Status: Ordered [facility] PAIN RELIEVING LIDOCAINE PATCH 4% [facility] PAIN [...] Team Personnel Name: Compa Diane NP Position: [facility] Associate Professional Member Role: PCP Address: Address: [address] [facility] [place] [address]- [place] Name: Blaire Iglesias [place] Position: [facility] Amb Office Staff Member Role: Primary Care Nurse Name: Rhiannon Li [place] Position: [facility] Office Staff Member Role: Primary Care Nurse Name: Viral Jolly MD Position: [facility] Physician - Behavioral Health Member Role: Lifetime Consulting Physician Address: Address: [address] [place] [address]- Care Team Related Persons Name: MAIN MOSER Address: home [address] [place] [address] Name: JORGE GARCIA Address: home [address] [place] [address] Name: LOREE SIFUENTES
--- OUTSIDE RECORDS SUMMARY | 2024-03-03 23:35 | XMS_ITS | Continuity of Care Document ---
Author Organization [facility] Address [address] [place] [address]- Care Team Providers Care Merchandise Director Name Role Phone Angela BROWN, Robyn Martinez Primary Care Physician Encounter [facility] Date(s): 07/28/20 - 11/05/20 [facility] [address] [place] [address]- Attending Physician: Philip Aguilar MD Admitting Physician: Philip Aguilar MD Referring Physician: Philip Aguilar MD Allergies, Adverse Reactions, Alerts Substance Reaction [...] Unknown, 11 Refills, Maintenance, 06/19/20 16:07:00 EST, [id number], 20, INHALE 2 PUFFS BY MOUTH EVERY 4 TO 6 HOURS NEEDED FOR WHEEZE FOR SHORTNESS... Start Date: 06/19/20 Status: Ordered Suboxone 8 mg-2 mg sublingual film 2.5 FILMS, Sublingual, Daily, [id number], # 75 film, 1 Refills, Maintenance, 04/26/20 16:38:00 EST, [facility] #[id number], 2.5 FILMS Sublingual Daily,Instr:[id number], 163, cm, 04/26/20 14:26:00 EST, Height, 105, [...]
--- OUTSIDE RECORDS SUMMARY | 2024-03-03 23:35 | XMS_ITS | Continuity of Care Document ---
Author Organization [facility] Address [address] [place] [address]- Care Team Providers Care Physician Assistant Psychiatry Name Role Phone Gen BROWN, Claribel Primary Care Physician Encounter [facility] Date(s): 11/12/21 - 12/12/21 [facility] [place] [address] [place] [address]- Allergies, Adverse Reactions, Alerts No Known Allergies Immunizations Given and Recorded Vaccine Date Status Refusal Reason SARS-CoV-2 (COVID-19) mRNA BNT-162b2 vac 09/08/20 Recorded SARS-CoV-2 (COVID-19) mRNA BNT-162s8 vac 08/18/20 Recorded pneumococcal 23-valent vaccine 10/21/16 [...]
--- OUTSIDE RECORDS SUMMARY | 2024-03-03 23:35 | XMS_ITS | Continuity of Care Document ---
Author Organization [facility] Address [address] [place] [address]- Care Team Providers Care Chief Digital Officer Name Role Phone Roxi BROWN, Compa Hall Primary Care Physician Encounter [facility] Date(s): 04/17/23 - 05/17/[address] [facility] [address] [place] [address]- Attending Physician: Maddie Jones Admitting Physician: AdmMaddie childs Referring Physician: Admtr, ArSoren Allergies, Adverse Reactions, Alerts No Known Allergies [...] 11 Refills, Maintenance, 03/25/23 12:53:00 EST, Solution, [facility] #[id number], 3 mL Inhalation 4 times a da... Start Date: 03/25/23 Status: Ordered Breo Ellipta 100 mcg-25 mcg/inh inhalation powder 1 puffs, Inhalation, Daily, RINSE MOUTH AFTERWARDS., # 1 each, 3 Refills, 11/21/22 10:33:[id number], 1 puffs Inhalation Daily,Instr:RINSE MOUTH AFTERWARDS., 170, cm, 11/19/2313:19:00 EDT, Height, 94.4, kg, 11/08/22 14:35:00 E... Start Date: 11/21/22 Status: Ordered cloNIDine 0.1 mg oral tablet 0.05 mg, 0.5, tablet, By Mouth, 4 times a day, PRN, stay hydrated, # 60 tablet, Refills 3, Tot. Refills 3, Maintenance, anxiety, panic, withdrawal symptoms, 03/25/23 12:52:00 EST, Route to Pharmacy Electronically, [facility] #[id number], Partial... Start Date: 03/25/23 Status: Ordered duloxetine 30 mg oral enteric coated capsule 1 capsule = 30 mg, By Mouth, 2 times a day, do not crush or chew, # 180 capsule, 3 Refills, Maintenance, 12/20/22 17:50:00 EDT, [facility] #[id number], 170, cm, 12/06/22 0:43:00 EDT, Height, 94.4, kg, 11/08/22 14:35:00 EDT, Dry Weight Start Date: 12/20/22 Status: Ordered gabapentin 300 mg oral capsule 300 mg, 1, capsule, By Mouth, 3 times a day, # 270 capsule, Refills 1, Tot. Refills 1, Maintenance,02/12/23 10:36:00 EDT, Route to Pharmacy Electronically, [facility] #[id number], Partial fill upon patient request, 170, cm, 01/31/23 10:06:00 EDT... Start Date: 02/12/23 Status: Ordered hydroxychloroquine 200 mg oral tablet 1, tablet, By Mouth, 2 times a day, # 60 tablet, Refills 5, Tot. Refills 5, 04/15/23 13:55:00 EST, Route to Pharmacy Electronically, [facility] #[id number], 170, cm, 01/31/23 10:06:00 EDT, Height, 94.4, kg, 11/08/22 14:35:00 EDT, Dry Weight Start Date: 04/15/23 Status: Ordered hydrOXYzine hydrochloride 25 mg oral tablet 1 tablet = 25 mg, By Mouth, Daily, PRN anxiety, for 30 days, # 30 tablet, 3 Refills, Acute 07/23/2411:53:00 EDT, 03/25/23 12:53:00 EST, Tablet, [facility] #[id number], Partial fill upon patientrequest if the prescription is for a schedule II op... Start Date: 03/25/23 Stop Date: 07/23/23 Status: Ordered risperiDONE 1 mg oral tablet 1 mg, 1, tablet, By Mouth, Daily, # 90 tablet, Refills 1, Tot. Refills 1, Maintenance, 02/12/23 10:37:00 EDT, Route to Pharmacy Electronically, [facility] #[id number], 170, cm, 01/31/23 10:06:00EDT, Height, 94.4, kg, 11/08/22 14:35:00 EDT, Dry W... Start Date: 02/12/23 Stop Date: 08/11/23 Status: Ordered Suboxone 8 mg-2 mg Sublingual Film 1 film, Sublingual, 3 times a day, dissolve under the tongue, # 90 film, 1 Refills, Maintenance, 05/14/23 11:49:00 EST, [facility] #[id number], Partial fill upon patient request if the prescription is for a schedule II opioid drug. ALVINA [id number];... Start Date: 05/14/23 Stop Date: 07/13/23 Status: Ordered tiZANidine 2 mg oral tablet 2 mg, 1, tablet, By Mouth, 3 times a day, # 21 tablet, Refills 0, Tot. Refills 0, Maintenance, 04/22/23 9:05:00 EST, Route to Pharmacy Electronically, [facility] #[id number], Partial fill upon patient request if the prescription is for a schedule... Start Date: 04/22/23 Stop Date: 04/29/23 Status: Ordered Ventolin HFA 108 mcg/inh inhalation aerosol with adapter 2 puffs, Inhalation, 4 times a day, PRN for wheezing, # 1 each, 3 Refills, Maintenance, 05/13/23 11:21:00 EST, Aerosol, [facility] #[id number], Partial fill upon patient request if the prescription is for a schedule II opioid drug., 170, cm, 04/04... Start Date: 05/13/23 Status: Ordered Voltaren Arthritis Pain 1% topical gel = 4 Gm, Topically, 4 times a day, # 480 Gm, 4 Refills, Maintenance, 04/10/23 11:37:00 EST, [facility] #[id number], Partial fill upon patient request if the prescription is for a schedule II opioid drug., 4 Gm Topically 4 times a day, 170, cm, /... Start Date: 04/10/23 Status: Ordered [facility] PAIN RELIEVING LIDOCAINE PATCH 4% [facility] PAIN RELIEVING LIDOCAINE PATCH 4%, See Instructions, [...] Compa Diane NP Position: [facility] PCO Associate Professional Member Role: PCP Address: Address: [address] [facility] [place] [address]- Name: Blaire Iglesias [place] Position: [facility] RN Member Role: Primary Care Nurse Name: Rhiannon Gibson Position: [facility] RN Member Role: Primary Care Nurse Name: Viral Jolly MD Position: [facility] Physician - Behavioral Health Member Role: Lifetime Consulting Physician Address: Address: [address] [place] [address]- Care Team Related Persons Name: MAIN MOSER Address: home [address] [place] [address] Name: JORGE GARCIA Address: home [address] [place] [address] Name: LOREE SIFUENTES
--- OUTSIDE RECORDS SUMMARY | 2024-03-03 23:36 | XMS_ITS | Continuity of Care Document ---
Author Organization [facility] Address [address] [place] [address]- Care Team Providers Care Tailor Apprentice Name Role Phone Gen BROWN, Claribel Primary Care Physician Encounter [facility] Date(s): 05/09/22 - 06/08/22 [facility] [address] [place] [address]- Allergies, Adverse Reactions, Alerts No Known Allergies [...] # 60 each, 1 Refills, [facility], 30, INHALE 1 PUFF BY MOUTH EVERY DAY. RINSE MOUTH AFTERWARDS., 170, cm, 03/07/21 11:09:00 EDT, Height, 107.3, kg, 06/22/20 13:29:00 EST, Dry Weight Start Date: 11/12/21 Status: Ordered diclofenac 1% topical gel = 2 Gm, Topically, 2 times a day, # 100 Gm, 2 Refills, 05/16/22 16:23:00 EST, [facility] #[id number], 25, 2 Gm Topically 2 times a day, 175, cm, 05/01/22 15:32:00 EST, Height, 75, kg, 05/01/22 15:32:00 EST, Dry Weight Start Date: 05/16/22 Status: Ordered duloxetine 30 mg oral enteric coated capsule 1 capsule = 30 mg, By Mouth, 2 times a day, do not crush or chew, # 180 capsule, 3 Refills, Maintenance, 02/19/22 14:28:00 EDT, [facility] #04119, 170, cm, 03/07/21 11:09:00 EDT, Height, 107.3, kg, 06/22/20 13:29:00 EST, Dry Weight Start Date: 02/19/22 Status: Ordered famotidine 20 mg oral tablet 20 mg, 1, tablet, By Mouth, Daily, OV 5-6-20, # 30 tablet, Refills 5, Tot. Refills 5, Maintenance, 08/21/20 12:25:00 EDT, Route to Pharmacy Electronically, [facility]/pharmacy #[id number], 170, cm, 08/16/20 15:32:00 EDT, Height, 107.3, kg, 06/22/20 13:29:00 EST, D... Start Date: 08/21/20 Status: Ordered gabapentin 300 mg oral capsule 300 mg, 1, capsule, By Mouth, 3 times a day, # 270 capsule, Refills 1, Tot. Refills 1, Maintenance,08/21/21 14:14:00 EDT, Route to Pharmacy Electronically, [facility] #[id number], Partial fill upon patient request, 170, cm, 03/07/21 11:09:00 EDT... Start Date: 08/21/21 Status: Ordered gabapentin 300 mg oral capsule 300 mg, 1, capsule, By Mouth, 3 times a day, # 270 capsule, Refills 3, Tot. Refills 3, Maintenance,02/19/22 14:28:00 EDT, Route to Pharmacy Electronically, [facility] #[id number], Partial fill upon patient request, 170, cm, 03/07/21 11:09:00 EDT... Start Date: 02/19/22 Status: Ordered hydroxychloroquine 200 mg oral tablet 1, tablet, By Mouth, 2 times a day, # 60 tablet, Refills 5, Tot. Refills 5, 05/16/22 16:23:00 EST, Route to Pharmacy Electronically, [facility] #[id number], 175, cm, 05/01/22 15:32:00 EST, Height, 75, [...] 18 Gm, 5 Refills, 03/20/22 16:08:00 EST, [facility] #32645, 2 puffs Inhalation Every 4 to 6 hours,PRN: NEEDED FOR SHORTNESS OF BREATH OR WHEEZING... Start Date: 03/20/22 Status: Ordered risperiDONE 1 mg oral tablet 1 mg, 1, tablet, By Mouth, Daily, # 90 tablet, Refills 3, Tot. Refills 3, Maintenance, 02/19/22 14:27:00 EDT, Route to Pharmacy Electronically, [facility] #36496, 170, cm, 03/07/21 11:09:00EDT, Height, 107.3, kg, 06/22/20 13:29:00 EST, Dry... Start Date: 02/19/22 Stop Date: 02/14/23 Status: Ordered Suboxone 8 mg-2 mg Sublingual Film 1 film, Sublingual, 3 times a day, dissolve under the tongue, # 21 film, 0 Refills, Maintenance, 04/05/22 8:36:00 EST, [facility] #[id number], Partial fill upon patient request if the prescription is for a schedule II opioid drug. ALVINA [id number],... Start Date: 04/05/22 Stop Date: 04/12/22 Status: Ordered Suboxone 8 mg-2 mg Sublingual Film 1 film, Sublingual, 3 times a day, dissolve under the tongue, # 90 film, 1 Refills, Maintenance, 02/08/22 13:04:00 EDT, [facility] #[id number], Partial fill upon patient request if the prescription is for a schedule II opioid drug. [facility]VINA [id number],... Start Date: 02/08/22 Stop Date: 04/09/22 Status: Ordered Suboxone 8 mg-2 mg Sublingual Film 1 film, Sublingual, 3 times a day, dissolve under the tongue, # 90 film, 1 Refills, Maintenance, 05/10/22 14:12:00 EST, [facility] #96109, Partial fill upon patient request if the prescription is for a schedule II opioid drug. ALVINA [id number],... Start Date: 05/10/22 Stop Date: 07/09/22 Status: Ordered Suboxone 8 mg-2 mg Sublingual Film 1 film, Sublingual, 3 times a day, dissolve under the tongue, # 90 film, 1 Refills, Maintenance, 12/10/21 14:40:00 EDT, [facility] #90721, Partial fill upon patient request if the prescription is for a schedule II opioid drug. ALVINA [id number],... Start Date: 12/10/21 Stop Date: 02/08/22 Status: Ordered Suboxone 8 mg-2 mg Sublingual Film 1 film, Sublingual, 3 times a day, dissolve under the tongue, # 21 film, 0 Refills, Maintenance, 04/12/22 14:58:00 EST, [facility] #97389, Partial fill upon patient request if the prescription is for a schedule II opioid drug. [facility]VINA [id number],... Start Date: 04/12/22 Stop Date: 04/19/22 Status: Ordered Suboxone 8 mg-2 mg sublingual film 3 film, Sublingual, Daily, [id number], # 90 film, 1 Refills, Maintenance, 10/21/21 9:55:00 EDT, [facility] #[id number], 3 film Sublingual Daily,x30 days,Instr:[id number], 170, cm, 03/07/21 11:09:00 EDT, Height, 107.3, kg, 06/22/20 13:29:00 EST, Dry... Start Date: 10/21/21 Stop Date: 12/20/21 Status: Ordered traZODone 50 mg oral tablet 50 mg, 1, tablet, By Mouth, Daily at bedtime, PRN, as needed, # 90 tablet, Refills 3, Tot. Refills 3, Maintenance, Sleep, 02/19/22 14:27:00 EDT, Route to Pharmacy Electronically, [facility]#[id number], 170, cm, 03/07/21 11:09:00 EDT, Height, 107... [...] Care Team Personnel Name: Blaire Crandall Position: [facility] RN Member Role: Primary Care Nurse Name: Rhiannon Gibson Position: [facility] RN Member Role: Primary Care Nurse Name: Claribel Blevins NP Position: [facility] Associate Professional Member Role: PCP Address: Address: [address] [place] [id number]- Name: Viral Jolly MD Position: [facility] Psychiatry MD Member Role: Lifetime Consulting Physician Address: Address: [address] [place] [address]- Care Team Related Persons Name: MAIN MOSER Address: home [address] [place] [address] Name: JORGE GARCIA Address: home [address] [place] [address]
--- OUTSIDE RECORDS SUMMARY | 2024-03-03 23:36 | XMS_ITS | Continuity of Care Document ---
Author Organization [facility] Address [address] [place] [address]- Care Team Providers Care Shop Mechanic Name Role Phone Angela BROWN, Robyn Martinez Primary Care Physician [place] [facility] [place] - 01/14/[facility] [address] [address]- [facility] Attending Physician: AdmMaddie childs Admitting Physician: AdmtrMaddie Referring Physician: Admtr, Sterling8 [...]
--- OUTSIDE RECORDS SUMMARY | 2024-03-03 23:36 | XMS_ITS | Continuity of Care Document ---
Author Organization [facility] Primary Car [place] Address [address] [place] [address]- Care Team Providers Care Estimating Manager Name Role Phone Fine DISTRIBUTION CENTER ADMINISTRATOR, Compa Hall Primary Care Physician Encounter [facility] Date(s): 11/11/23 - 12/11/23 [facility] [place] [address] [place], [place] [address] Attending Physician: Maddie Jones Admitting Physician: Maddie [...] 11 Refills, Maintenance, 03/25/23 12:53:00 EST, Solution, [facility] #[id number], 3 mL Inhalation 4 times a da... Start Date: 03/25/23 Status: Ordered Breo Ellipta 100 mcg-25 mcg/inh inhalation powder 1 puffs, Inhalation, Daily, RIN[employer]OU[employer] AFTERWARDS., # 1 each, 3 Refills, 11/21/22 10:33:00 EDT, [facility] #[id number], 1 puffs Inhalation Daily,Instr:RINSE MOUTH AFTERWARDS., 170, cm, 11/19/2313:19:00 EDT, Height, 94.4, kg, 11/08/22 14:35:00 E... Start Date: 11/21/22 Status: Ordered calcium (as citrate)-vitamin D 315 mg-250 intl units oral tablet 2 tablet, By Mouth, 2 times a day, # 120 tablet, 11 Refills, Maintenance, 10/27/23 11:47:00 EDT, Tablet, [facility] #[id number], Partial fill upon patient request if the [...] 09/18/23 10:13:00 EDT, Route to Pharmacy Electronically, [facility] #[id number], Partial... Start Date: 09/18/23 Stop Date: 03/16/24 Status: Ordered duloxetine 30 mg oral enteric coated capsule 1 capsule = 30 mg, By Mouth, 2 times a day, do not crush or chew, # 180 capsule, 3 Refills, Maintenance, 12/20/22 17:50:00 EDT, [facility] #[id number], 170, cm, 12/06/22 0:43:00 EDT, Height, 94.4, kg, 11/08/22 14:35:00 EDT, Dry Weight Start Date: 12/20/22 Status: Ordered gabapentin 300 mg oral capsule 300 mg, 1, capsule, By Mouth, 3 times a day, # 270 capsule, Refills 1, Tot. Refills 1, Maintenance,08/11/23 9:29:00 EDT, Route to Pharmacy Electronically, [facility] #[id number], Partial fill upon patient request, 170, cm, 07/23/23 16:32:00 EDT,... Start Date: 08/11/23 Status: Ordered hydroxychloroquine 200 mg oral tablet 1, tablet, By Mouth, 2 times a day, # 60 tablet, Refills 5, Tot. Refills 5, 04/15/23 13:55:00 EST, Route to Pharmacy Electronically, [facility] #[id number], 170, cm, 01/31/23 10:06:00 EDT, Height, 94.4, kg, 11/08/22 14:35:00 EDT, Dry Weight Start Date: 04/15/23 Status: Ordered hydrOXYzine hydrochloride 25 mg oral tablet See Instructions, TAKE 1 TABLET BY MOUTH TWICE DAILY NEEDED FOR ANXIETY, # 60 tablet, 5 Refills,Maintenance, 09/18/23 10:13:00 EDT, [facility] #[id number], 170, cm, 07/23/23 16:32:00 EDT, Height, 100, kg, 04/20/23 21:48:00 EST, Dry Weight Start Date: 09/18/23 Status: Ordered NEBULIZER MACHINE AND TUBING NEBULIZER MACHINE AND TUBING, See Instructions, PRN Wheezing/Shortness of Breath, # 1 each, Refills0, Tot. Refills 0, Maintenance, USE NEEDED FOR WHEEZING DX:, 06/17/23 15:49:00 EST, Supply Start Date: 06/17/23 Status: Ordered NuLYTELY Lemon [place] oral powder for reconstitution 240 mL, By Mouth, Every 10 minutes, # 1 each, 0 Refills, Maintenance, 12/03/23 9:52:00 EDT, REC Powder, [facility] #[id number], Partial fill upon patient request if the prescription is for a schedule II opioid drug., 170, cm, 11/26/23 7:18:00 EDT... Start Date: 12/03/23 Status: Ordered PHENobarbital 30 mg oral tablet 1 tablet = 30 mg, By Mouth, 2 times a day, # 60 tablet, 1 Refills, Maintenance, 11/20/23 16:42:00 EDT, Tablet, [facility] #[id number], IF NOT COVERED, please use goodrx coupon and allow pt to pay OOP; $9.09; ASHLEY [id number]; [facility]; Group [id number]; Membe... Start Date: 11/20/23 Status: Ordered risperiDONE 1 mg oral tablet 1 mg, 1, tablet, By Mouth, Daily, # 90 tablet, Refills 1, Tot. Refills 1, Maintenance, 08/11/23 9:29:00 EDT, Route to Pharmacy Electronically, [facility] #[id number], 170, cm, 07/23/23 16:32:00 EDT, Height, 100, kg, 04/20/23 21:48:00 EST, Dry Weight Start Date: 08/11/23 Stop Date: 02/07/24 Status: Ordered tiZANidine 2 mg oral tablet 2 mg, 1, tablet, By Mouth, 3 times a day, # 84 tablet, Refills 1, Tot. Refills 1, Maintenance, 09/08/23 18:10:00 EDT, Route to Pharmacy Electronically, [facility] #[id number], Partial fill upon patient request if the prescription is for a schedul... Start Date: 09/08/23 Stop Date: 11/03/23 Status: Ordered Trelegy Ellipta 200 mcg-62.5 mcg-25 mcg/inh inhalation powder 1 puffs, Inhalation, Daily, at the same time every day, # 3 each, 3 Refills, Maintenance, 07/23/23 16:56:00 EDT, Powder, [facility] #[id number], Partial fill upon patient request if the prescription is for a schedule II opioid drug., 1 puffs Inha... Start Date: 07/23/23 Stop Date: 07/17/24 Status: Ordered Ultram 50 mg oral tablet 1 tablet = 50 mg, By Mouth, Every 12 hours, PRN for pain, # 20 tablet, 0 Refills, Maintenance, 10/14/23 9:32:00 EDT, Tablet, [facility] #[id number], Partial fill upon patient request if the prescription is for a schedule II opioid drug., 170, cm,... Start Date: 10/14/23 Status: Ordered Ventolin HFA 108 mcg/inh inhalation aerosol with adapter 2 puffs, Inhalation, 4 times a day, PRN for wheezing, # 1 each, 3 Refills, Maintenance, 05/28/23 12:34:00 EST, Aerosol, [facility] #[id number], Partial fill upon patient request if the prescription is for a schedule II opioid drug., 170, cm, 04/04... Start Date: 05/28/23 Status: Ordered Voltaren Arthritis Pain 1% topical gel = 4 Gm, Topically, 4 times a day, # 480 Gm, 4 Refills, Maintenance, 07/24/23 14:31:00 EDT, [facility] #[id number], Partial fill upon patient request if the prescription is for a schedule II opioid drug., 4 Gm Topically 4 times a day, 170, cm, ... Start Date: 07/24/23 Status: Ordered [facility] LIDOCAINE PATCH 4% [facility] LIDOCAINE PATCH 4%, See Instructions, [...] Team Personnel Name: Compa Diane NP Position: [facility] PCO Associate Professional Member Role: PCP Address: Address: [address] [facility] [place] [address]- [place] Name: Blaire Iglesias [place] Position: [facility] Office Staff Member Role: Primary Care Nurse Name: Rhiannon Li [place] Position: [facility] Staff Member Role: Primary Care Nurse Name: Viral Jolly MD Position: [facility] Physician - Behavioral Health Member Role: Lifetime Consulting Physician Address: Address: [address] [place] [address]- Care Team Related Persons Name: MAIN MOSER Address: home [address] [place] [address] Name: JORGE GARCIA Address: home [address] [place] [address] Name: LOREE SIFUENTES
--- OUTSIDE RECORDS SUMMARY | 2024-03-03 23:36 | XMS_ITS | Continuity of Care Document ---
Author Organization [facility] Primary Car e [place] Address [address] [place] [address]- Care Team Providers Care Police And Fire Dispatcher Name Role Phone Angela BROWN, Robyn Martinez Primary Care Physician Encounter [facility] [id number] Date(s): 05/20/19 - 07/10/19 [facility] [place] [address] [place] [address]- [facility] Attending Physician: Rboyn Miller NP Admitting Physician: Robyn Miller NP [...]
--- OUTSIDE RECORDS SUMMARY | 2024-03-03 23:36 | XMS_ITS | Continuity of Care Document ---
Author Organization [facility] Address [address] [place] [address]- Care Team Providers Care Ed Physicians Name Role Phone Angela BROWN, Robyn Martinez Primary Care Physician Encounter [facility] Date(s): 06/03/20 - 06/03/20 [facility] [address] [place] [address]- Discharge Disposition: A-D/C Home Attending Physician: Jaime Gar MD Admitting Physician: Jaime Gar MD Referring Physician: Not on Staff, Referring MD Allergies, Adverse Reactions, Alerts Substance Reaction [...] 11 Refills, Maintenance, 05/31/19 17:40:00 EST, Solution, [facility]/pharmacy #[id number], 3 mL Inhalation 4 times a day,PRN:Whe... Start Date: 05/31/19 Status: Ordered clindamycin 300 mg oral capsule 1 capsule = 300 mg, By Mouth, Every 6 hours, for 10 days, # 40 capsule, 0 Refills, Acute 06/13/20 14:51:00 EST, 06/03/20 14:51:00 EST, Capsule, [facility] #[id number], Partial fill upon patient request if the prescription is for a schedule II opi... Start Date: 06/03/20 Stop Date: 06/13/20 Status: Ordered EC Naprosyn 500 mg oral enteric coated tablet 1 tablet = 500 mg, By Mouth, 2 times a day, # 20 tablet, 0 Refills, Maintenance, 06/03/20 14:52:00 EST, EC Tablet, [facility] #[id number], Partial fill upon patient request if the prescription is for a schedule II opioid drug., 170, cm, 06/03/20... Start Date: 06/03/20 Status: Ordered Suboxone 8 mg-2 mg sublingual film 2.5 FILMS, Sublingual, Daily, [id number], # 75 film, 1 Refills, Maintenance, 04/26/20 16:38:00 EST, [facility] #[id number], 2.5 FILMS Sublingual Daily,Instr:[id number], 163, cm, 04/26/20 14:26:00 EST, Height, 105, [...] [Reference Range]: 1 2 Height 170 cm (06/03/20 2:48 PM) 170 cm (06/03/20 2:16 PM) Weight 103.8 kg (06/03/20 2:48 PM) 103.8 kg (06/03/20 2:16 PM) Oxygen Saturation [94-100 %] 93 % *L* (06/03/20 2:48 PM) 99 % (06/03/20 2:16 PM) Pulse Rate [55-90 bpm] 85 bpm (06/03/20 2:48 PM) 88 bpm (06/03/20 2:16 PM) Body Mass Index [18.5-24.99] 35.92 *>HHI* (06/03/20 2:48 PM) Blood Pressure [90-138/55-84 mm Hg] 119/ 77mm Hg (06/03/20 2:48 PM) 154/96mm Hg *H* (06/03/20 2:16 PM) Respiratory Rate [16-30 br/min] 18 br/mi n (06/03/20 2:48 PM) 18 br/min (06/03/20 2:16 PM) Temperature [96.8-100.4 DegF] 98.4 DegF (06/03/20 2:16 PM) Mode of Delivery (Oxygen) Room air (06/03/20 2:48 PM) Room air (06/03/20 2:16 PM) Blood pressure sites Arm, left (06/03/20 2:48 PM) Temperature Route Oral (06/03/20 2:16 PM) Dry Weight 103.8 kg (06/03/20 2:48 PM) 103.8 kg (06/03/20 2:16 PM) Social History Social History Type Response Smoking Status Current every day antony gomez entered on: 09/29/14 Sex
--- OUTSIDE RECORDS SUMMARY | 2024-03-03 23:36 | XMS_ITS | Continuity of Care Document ---
Author Organization [facility] Primary Car e [place] Address [address] [place] [address]- Care Team Providers Care Helper Marble Finisher Name Role Phone Gen BROWN, Claribel Primary Care Physician Encounter [facility] Date(s): 03/07/21 - 04/06/21 [facility] [address] [place] [address]- Attending Physician: Maddie Jones Admitting Physician: Maddie Jones Referring Physician: Admtr, Maddie Allergies, Adverse Reactions, Alerts Substance Reaction Severity [...] OR WHEEZING, # 18 each, 6 Refills, [facility] [id number], 20, INHALE 2 PUFFS BY MOUTH EVERY [...]
--- OUTSIDE RECORDS SUMMARY | 2024-03-03 23:36 | XMS_ITS | Continuity of Care Document ---
Author Organization [facility] Address [address] [place] [address]- Care Team Providers Care Steam And Gas Turbine Assembler Name Role Phone Angela BROWN, Robyn Martinez Primary Care Physician Encounter [facility] Date(s): 07/22/20 - 08/02/20 [facility] [address] [place] [address]- Attending Physician: Ham[place] KU, Milton Jones Allergies, [...] Refills, Maintenance, 06/19/20 16:07:00 EST, [id number], 20, INHALE 2 PUFFS BY MOUTH EVERY 4 TO 6 HOURS NEEDED FOR WHEEZE FOR SHORTNESS... Start Date: 06/19/20 Status: Ordered Suboxone 8 mg-2 mg sublingual film 2.5 FILMS, Sublingual, Daily, [id number], # 75 film, 1 Refills, Maintenance, 04/26/20 16:38:00 EST, [facility] #[id number], 2.5 FILMS Sublingual Daily,Instr:[id number], 163, cm, 04/26/20 14:26:00 EST, Height, 105, [...]
--- OUTSIDE RECORDS SUMMARY | 2024-03-03 23:36 | XMS_ITS | Continuity of Care Document ---
Author Organization [facility] Primary Car e [place] Address [address] [place] [address]- Care Team Providers Care Set Decorator Name Role Phone Fine SAND SIFTER, Compa Hall Primary Care Physician Encounter [facility] Date(s): 05/28/23 - 06/27/23 [facility] Care [place] [address] [place] [address]- Allergies, Adverse Reactions, Alerts No Known Allergies Immunizations Given and Recorded Vaccine Date Status Refusal Reason SARS-CoV-2 (COVID-19) mRNA BNT-162b2 vac 09/08/20 Recorded SARS-CoV-2 (COVID-19) mRNA BNT-162z8 vac 08/18/20 Recorded pneumococcal 23-valent vaccine 10/21/16 Given tetanus-diphtheria toxoids (Td) 05/05/03 Recorded Medications albuterol-ipratropium 3 mg-0.5 mg/3 ml inhalation solution 3 mL, Inhalation, 4 times a day, PRN Wheezing/Shortness of Breath, DX: J45.909 do not use ventolineand Nebs at the same time, # 90 mL, 11 Refills, Maintenance, 03/25/23 12:53:00 EST, Solution, [facility] #[id number], 3 mL Inhalation 4 times a da... Start Date: 03/25/23 Status: Ordered Breo Ellipta 100 mcg-25 mcg/inh inhalation powder 1 puffs, Inhalation, Daily, RINSE MOUTH AFTERWARDS., # 1 each, 3 Refills, 11/21/22 10:33:00 EDT, [facility] #[id number], 1 puffs Inhalation Daily,Instr:RINSE MOUTH AFTERWARDS., 170, cm, 11/19/2313:19:00 EDT, Height, 94.4, kg, 11/08/22 14:35:00 E... Start Date: 11/21/22 Status: Ordered cloNIDine 0.1 mg oral tablet 0.05 mg, 0.5, tablet, By Mouth, 4 times a day, PRN, stay hydrated, # 120 tablet, Refills 3, Tot. Refills 3, Maintenance, anxiety, panic, withdrawal symptoms, 03/25/23 12:52:00 EST, Route to Pharmacy Electronically, [facility] #[id number], Partial... Start Date: 03/25/23 Stop Date: 09/10/23 Status: Ordered duloxetine 30 mg oral enteric coated capsule 1 capsule = 30 mg, By Mouth, 2 times a day, do not crush or chew, # 180 capsule, 3 Refills, Maintenance, 12/20/22 17:50:00 EDT, [facility] #[id number], 170, cm, 12/06/22 0:43:00 EDT, Height, 94.4, kg, 11/08/22 14:35:00 EDT, Dry Weight Start Date: 12/20/22 Status: Ordered gabapentin 300 mg oral capsule 300 mg, 1, capsule, By Mouth, 3 times a day, # 270 capsule, Refills 1, Tot. Refills 1, Maintenance,02/12/23 10:36:00 EDT, Route to Pharmacy Electronically, [facility] #[id number], Partial fill upon patient request, 170, cm, 01/31/23 10:06:00 EDT... Start Date: 02/12/23 Status: Ordered hydroxychloroquine 200 mg oral tablet 1, tablet, By Mouth, 2 times a day, # 60 tablet, Refills 5, Tot. Refills 5, 04/15/23 13:55:00 EST, Route to Pharmacy Electronically, [facility] #[id number], 170, cm, 01/31/23 10:06:00 EDT, Height, 94.4, kg, 11/08/22 14:35:00 EDT, Dry Weight Start Date: 04/15/23 Status: Ordered hydrOXYzine hydrochloride 25 mg oral tablet 1 tablet = 25 mg, By Mouth, Daily, PRN anxiety, for 30 days, # 30 tablet, 3 Refills, Acute 07/23/2411:53:00 EDT, 03/25/23 12:53:00 EST, Tablet, [facility] #[id number], Partial fill upon patientrequest if the prescription [...] 02/12/23 10:37:00 EDT, Route to Pharmacy Electronically, [facility] #[id number], 170, cm, 01/31/23 10:06:00EDT, Height, 94.4, kg, 11/08/22 14:35:00 EDT, Dry W... Start Date: 02/12/23 Stop Date: 08/11/23 Status: Ordered Suboxone 8 mg-2 mg Sublingual Film 1 film, Sublingual, 3 times a day, dissolve under the tongue, # 90 film, 1 Refills, Maintenance, 05/14/23 11:49:00 EST, [facility] #07494, Partial fill upon patient request if the prescription is for a schedule II opioid drug. [facility]VINA [id number];... Start Date: 05/14/23 Stop Date: 07/13/23 Status: Ordered tiZANidine 2 mg oral tablet 2 mg, 1, tablet, By Mouth, 3 times a day, # 21 tablet, Refills 0, Tot. Refills 0, Maintenance, 04/22/23 9:05:00 EST, Route to Pharmacy Electronically, [facility] #[id number], Partial fill upon patient request if the prescription is for a schedule... Start Date: 04/22/23 Stop Date: 04/29/23 Status: Ordered Ventolin HFA 108 mcg/inh inhalation aerosol with adapter 2 puffs, Inhalation, 4 times a day, PRN for wheezing, # 1 each, 3 Refills, Maintenance, 05/28/23 12:34:00 EST, Aerosol, [facility] #[id number], Partial fill upon patient request if the prescription is for a schedule II opioid drug., 170, cm, 04/04... Start Date: 05/28/23 Status: Ordered Voltaren Arthritis Pain 1% topical gel = 4 Gm, Topically, 4 times a day, # 480 Gm, 4 Refills, Maintenance, 04/10/23 11:37:00 EST, [facility] #[id number], Partial fill upon patient request if the [...] Team Personnel Name: Compa Diane NP Position: [facility] PCO Associate Professional Member Role: PCP Address: Address: [address] [place] [address] [place] [address]- Name: Blaire Iglesias [place] Position: [facility] RN Member Role: Primary Care Nurse Name: Rhiannon Gibson Position: [facility] RN Member Role: Primary Care Nurse Name: Viral Jolly MD Position: [facility] Physician - Behavioral Health Member Role: Lifetime Consulting Physician Address: Address: [address] [place] [address]- Care Team Related Persons Name: MAIN MOSER Address: home [address] [place] [address] Name: JORGE GARCIA Address: home [address] [place] [address] Name: LOREE SIFUENTES
--- OUTSIDE RECORDS SUMMARY | 2024-03-03 23:36 | XMS_ITS | Continuity of Care Document ---
Author Organization [facility] Primary Car e [place] Address [address] [place] [address]- Care Team Providers Care Recyclable Materials Sorter Name Role Phone Roxi BROWN, Compa Hall Primary Care Physician Encounter [facility] Date(s): 10/28/23 - 11/27/23 [facility] Care [place] [address] [place] [address]- Allergies, Adverse Reactions, Alerts No Known Allergies [...] 11 Refills, Maintenance, 03/25/23 12:53:00 EST, Solution, [facility] #[id number], 3 mL Inhalation 4 times a da... Start Date: 03/25/23 Status: Ordered amoxicillin-clavulanate 875 mg-125 mg oral tablet 1 tablet, By Mouth, Every 12 hours, for 10 days, # 20 tablet, 0 Refills, Acute 12/06/23 7:37:00 EDT, 11/26/23 7:37:00 EDT, Tablet, [facility] #[id number], Partial fill upon patient request if the prescription is for a schedule II opioid drug., 17... Start Date: 11/26/23 Stop Date: 12/06/23 Status: Ordered Breo Ellipta 100 mcg-25 mcg/inh inhalation powder 1 puffs, Inhalation, Daily, RINSE MOUTH AFTERWARDS., # 1 each, 3 Refills, 11/21/22 10:33:00 EDT, [facility] #[id number], 1 puffs Inhalation Daily,Instr:RINSE MOUTH AFTERWARDS., 170, cm, 11/19/2313:19:00 EDT, Height, 94.4, kg, 11/08/22 14:35:00 E... Start Date: 11/21/22 Status: Ordered calcium (as citrate)-vitamin D 315 mg-250 intl units oral tablet 2 tablet, By Mouth, 2 times a day, # 120 tablet, 11 Refills, Maintenance, 10/27/23 11:47:00 EDT, Tablet, [facility] #[id number], Partial fill upon patient request if the [...] 09/18/23 10:13:00 EDT, Route to Pharmacy Electronically, [facility] #[id number], Partial... Start Date: 09/18/23 Stop Date: 03/16/24 Status: Ordered duloxetine 30 mg oral enteric coated capsule 1 capsule = 30 mg, By Mouth, 2 times a day, do not crush or chew, # 180 capsule, 3 Refills, Maintenance, 12/20/22 17:50:00 EDT, [facility] #[id number], 170, cm, 12/06/22 0:43:00 EDT, Height, 94.4, kg, 11/08/22 14:35:00 EDT, Dry Weight Start Date: 12/20/22 Status: Ordered gabapentin 300 mg oral capsule 300 mg, 1, capsule, By Mouth, 3 times a day, # 270 capsule, Refills 1, Tot. Refills 1, Maintenance,08/11/23 9:29:00 EDT, Route to Pharmacy Electronically, [facility] #[id number], Partial fill upon patient request, 170, cm, 07/23/23 16:32:00 EDT,... Start Date: 08/11/23 Status: Ordered hydroxychloroquine 200 mg oral tablet 1, tablet, By Mouth, 2 times a day, # 60 tablet, Refills 5, Tot. Refills 5, 04/15/23 13:55:00 EST, Route to Pharmacy Electronically, [facility] #[id number], 170, cm, 01/31/23 10:06:00 EDT, Height, 94.4, kg, 11/08/22 14:35:00 EDT, Dry Weight Start Date: 04/15/23 Status: Ordered hydrOXYzine hydrochloride 25 mg oral tablet See Instructions, TAKE 1 TABLET BY MOUTH TWICE DAILY NEEDED FOR ANXIETY, # 60 tablet, 5 Refills,Maintenance, 09/18/23 10:13:00 EDT, [facility] #[id number], 170, cm, 07/23/23 16:32:00 EDT, Height, 100, [...] 1 Refills, Maintenance, 11/20/23 16:42:00 EDT, Tablet, [facility] #[id number], IF NOT COVERED, please use [employer] coupon and allow pt to pay OOP; $9.09; [facility] [id number]; [facility]; [facility]; [facility]... Start Date: 11/20/23 Status: Ordered predniSONE 10 mg oral tablet See Instructions, 4 tablets for 3 days 3 tabs for 3 days 2 tabs for 3 days 1 tab for 3 days, # 30 tablet, 0 Refills, Acute 12/11/23 7:37:00 EDT, 11/26/23 7:37:00 EDT, [facility] #[id number], Partial fill upon patient request if the prescriptio... Start Date: 11/26/23 Stop Date: 12/11/23 Status: Ordered risperiDONE 1 mg oral tablet 1 mg, 1, tablet, By Mouth, Daily, # 90 tablet, Refills 1, Tot. Refills 1, Maintenance, 08/11/23 9:29:00 EDT, Route to Pharmacy Electronically, [facility] #[id number], 170, cm, 07/23/23 16:32:00 EDT, Height, 100, kg, 04/20/23 21:48:00 EST, Dry Weight Start Date: 08/11/23 Stop Date: 02/07/24 Status: Ordered tiZANidine 2 mg oral tablet 2 mg, 1, tablet, By Mouth, 3 times a day, # 84 tablet, Refills 1, Tot. Refills 1, Maintenance, 09/08/23 18:10:00 EDT, Route to Pharmacy Electronically, [facility] #[id number], Partial fill upon patient request if the prescription is for a schedul... Start Date: 09/08/23 Stop Date: 11/03/23 Status: Ordered Trelegy Ellipta 200 mcg-62.5 mcg-25 mcg/inh inhalation powder 1 puffs, Inhalation, Daily, at the same time every day, # 3 each, 3 Refills, Maintenance, 07/23/23 16:56:00 EDT, Powder, [facility] #[id number], Partial fill upon patient request if the prescription is for a schedule II opioid drug., 1 puffs Inha... Start Date: 07/23/23 Stop Date: 07/17/24 Status: Ordered Ultram 50 mg oral tablet 1 tablet = 50 mg, By Mouth, Every 12 hours, PRN for pain, # 20 tablet, 0 Refills, Maintenance, 10/14/23 9:32:00 EDT, Tablet, [facility] #[id number], Partial fill upon patient request if the prescription is for a schedule II opioid drug., 170, cm,... Start Date: 10/14/23 Status: Ordered Ventolin HFA 108 mcg/inh inhalation aerosol with adapter 2 puffs, Inhalation, 4 times a day, PRN for wheezing, # 1 each, 3 Refills, Maintenance, 05/28/23 12:34:00 EST, Aerosol, [facility] #[id number], Partial fill upon patient request if the prescription is for a schedule II opioid drug., 170, cm, 04/04... Start Date: 05/28/23 Status: Ordered Voltaren Arthritis Pain 1% topical gel = 4 Gm, Topically, 4 times a day, # 480 Gm, 4 Refills, Maintenance, 07/24/23 14:31:00 EDT, [facility] #[id number], Partial fill upon patient request if the [...] Team Personnel Name: Compa Diane NP Position: [facility] PCO Associate Professional Member Role: PCP Address: Address: [address] [facility] [place] [address]- Name: Blaire Iglesias [place] Position: [facility] Office Staff Member Role: Primary Care Nurse Name: Rhiannon Li [place] Position: [facility] Office Staff Member Role: Primary Care Nurse Name: Viral Jolly MD Position: [facility] Physician - Behavioral Health Member Role: Lifetime Consulting Physician Address: Address: [address] [place] [address]- Care Team Related Persons Name: MAIN MOSER Address: home [address] [place] [address] Name: JORGE GARCIA Address: home [address] [place] [address] Name: LOREE SIFUENTES
--- OUTSIDE RECORDS SUMMARY | 2024-03-03 23:36 | XMS_ITS | Continuity of Care Document ---
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 Name Role Phone Angela BROWN, Robyn Martinez Primary Care Physician Encounter [facility] Date(s): 08/16/20 - 08/23/20 [facility] Adult [address] [place] [address]- Encounter Diagnosis Asthma with bronchitis(Discharge Diagnosis) - 08/16/20 Attending Physician: Marylou Beauchamp NP Referring Physician: Robyn Miller NP Allergies, Adverse Reactions, Alerts Substance Reaction Severity Status NKA Active Immunizations Given and Recorded Vaccine Date Status Refusal Reason pneumococcal 23-valent vaccine 10/21/16 Given tetanus-diphtheria toxoids (Td) 05/05/03 Recorded Not Given Vaccine Date Status Refusal Reason influenza virus vaccine, inactivated 03/02/19 Not Given Patient Refuses Medications amoxicillin 500 mg oral capsule 1 capsule = 500 mg, By Mouth, 3 times a day, for 7 days, # 21 capsule, 0 Refills, Acute 08/25/20 13:45:00 EDT, 08/18/20 13:45:00 EDT, Capsule, [id number], Partial fill upon patient request ifthe prescription is for a schedule II opioid drug.,... Start Date: 08/18/20 Stop Date: 08/25/20 Status: Ordered ProAir HFA 90 mcg/inh inhalation aerosol 2 puffs, Inhalation, Every 4 to 6 hours, PRN NEEDED FOR WHEEZE FOR SHORTNESS OF BREATH, # 18 Unknown, 11 Refills, Maintenance, 06/19/20 16:07:00 EST, [id number], 20, INHALE 2 PUFFS BY MOUTH EVERY 4 TO 6 HOURS NEEDED FOR WHEEZE FOR SHORTNESS... Start Date: 06/19/20 Status: Ordered Suboxone 8 mg-2 mg sublingual film 2.5 FILMS, Sublingual, Daily, [id number], # 75 film, 1 Refills, Maintenance, 04/26/20 16:38:00 EST, [facility][id number], 2.5 FILMS Sublingual Daily,Instr:[id number], 163, cm, 04/26/20 14:26:00 EST, Height, 105, [...] Dates Health Status Clinical Service Informant Asthma with bronchitis Discharge Diagnosis 08/16/20 Vital Signs Most recent to oldest [Reference Range]: 1 Height 170 cm (08/16/20 3:32 PM) Social History Social History Type Response Smoking Status Current every day antony gomez entered on: 09/29/14 Sex
--- OUTSIDE RECORDS SUMMARY | 2024-03-03 23:36 | XMS_ITS | Continuity of Care Document ---
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 Start Date: 08/22/20 Status: Ordered Breo Ellipta 100 mcg-25 mcg/inh inhalation powder 1 puffs, Inhalation, Daily, [employer]., # 60 each, 1 Refills, 10/15/22 15:55:00 EDT, [facility] #[id number], 30, 1 puffs Inhalation Daily,Instr:[employer]., 169, cm, 10/03/22 14:03:00 EDT, Height, 94.2, kg, 08/09/22 12:11... Start Date: 10/15/22 Status: Ordered cloNIDine 0.1 mg oral tablet 0.05 mg, 0.5, tablet, By Mouth, 4 times a day, PRN, # 60 tablet, Refills 1, Tot. Refills 1, Maintenance, anxiety, panic, withdrawal symptoms, 10/25/22 15:45:00 EDT, Route to Pharmacy Electronically, [id number], Partial fill upon patie... Start Date: 10/25/22 Status: Ordered diclofenac 1% topical gel = 2 Gm, Topically, 2 times a day, # 100 Gm, 2 Refills, 05/16/22 16:23:00 EST, [facility][id number], 25, 2 Gm Topically 2 times a day, 175, cm, 05/01/22 15:32:00 EST, Height, 75, kg, 05/01/22 15:32:00 EST, Dry Weight Start Date: 05/16/22 Status: Ordered doxepin 3 mg oral tablet 1 tablet = 3 mg, By Mouth, Daily at bedtime, take within 30 minutes of bedtime and not within 3 hours of a meal, # 30 tablet, 1 Refills, Acute 04/03/23 9:00:00 EST, 10/25/22 15:39:00 EDT, Tablet, [id number], Partial fill upon patient... Start Date: 10/25/22 Stop Date: 04/03/23 Status: Ordered duloxetine 30 mg oral enteric coated capsule 1 capsule = 30 mg, By Mouth, 2 times a day, do not crush or chew, # 180 capsule, 3 Refills, Maintenance, 02/19/22 14:28:00 EDT, [id number], 170, cm, 03/07/21 11:09:00 EDT, Height, 107.3, kg, 06/22/20 13:29:00 EST, Dry Weight Start Date: 02/19/22 Status: Ordered famotidine 20 mg oral tablet 20 mg, 1, tablet, By Mouth, Daily, OV 5-6-20, # 30 tablet, Refills 5, Tot. Refills 5, Maintenance, 08/21/20 12:25:00 EDT, [id number], 170, cm, 08/16/20 15:32:00 EDT, Height, 107.3, kg, 06/22/20 13:29:00 EST, D... Start Date: 08/21/20 Status: Ordered gabapentin 300 mg oral capsule 300 mg, 1, capsule, By Mouth, 3 times a day, # 270 capsule, Refills 1, Tot. Refills 1, Maintenance,08/21/21 14:14:00 EDT, Route to Pharmacy Electronically, [facility] #[id number], Partial fill upon patient request, 170, cm, 03/07/21 11:09:00 EDT... Start Date: 08/21/21 Status: Ordered gabapentin 300 mg oral capsule 300 mg, 1, capsule, By Mouth, 3 times a day, # 270 capsule, Refills 3, Tot. Refills 3, Maintenance,02/19/22 14:28:00 EDT, Route to Pharmacy Electronically, [facility] #[id number], Partial fill upon patient request, 170, cm, 03/07/21 11:09:00 EDT... Start Date: 02/19/22 Status: Ordered hydroxychloroquine 200 mg oral tablet 1, tablet, By Mouth, 2 times a day, # 60 tablet, Refills 5, Tot. Refills 5, 05/16/22 16:23:00 EST, Route to Pharmacy Electronically, [facility] #[id number], 175, cm, 05/01/22 15:32:00 EST, Height, 75, [...] 18 Gm, 5 Refills, 03/20/22 16:08:00 EST, [id number], 2 puffs Inhalation Every 4 to 6 hours,PRN: NEEDED FOR SHORTNESS OF BREATH OR WHEEZING... Start Date: 03/20/22 Status: Ordered ProAir HFA 90 mcg/inh inhalation aerosol 2 puffs, Inhalation, Every 4 to 6 hours, PRN NEEDED FOR SHORTNESS OF BREATH OR WHEEZING, # 18 each, 1 Refills, 10/15/22 15:56:00 EDT, [id number], 20, 2 puffs Inhalation Every 4 to6 hours,PRN: NEEDED FOR SHORTNESS OF BREATH OR WH... Start Date: 10/15/22 Status: Ordered risperiDONE 1 mg oral tablet 1 mg, 1, tablet, By Mouth, Daily, # 90 tablet, Refills 3, Tot. Refills 3, Maintenance, 02/19/22 14:27:00 EDT, Route to Pharmacy Electronically, [facility][id number], 170, cm, 03/07/21 11:09:00EDT, Height, 107.3, kg, 06/22/20 13:29:00 EST, Dry... Start Date: 02/19/22 Stop Date: 02/14/23 Status: Ordered Suboxone 8 mg-2 mg Sublingual Film 1 film, Sublingual, 3 times a day, dissolve under the tongue, # 90 film, 1 Refills, Maintenance, 07/15/22 12:58:00 EDT, [facility][id number], Partial fill upon patient request if the prescription is for a schedule II opioid drug. [facility] [id number],... Start Date: 07/15/22 Stop Date: 09/13/22 Status: Ordered Suboxone 8 mg-2 mg Sublingual Film 1 film, Sublingual, 3 times a day, dissolve under the tongue, # 21 film, 0 Refills, Maintenance, 04/05/22 8:36:00 EST, [id number], Partial fill upon patient request if the prescription is for a schedule II opioid drug. [facility]VINA [id number],... Start Date: 04/05/22 Stop Date: 04/12/22 Status: Ordered Suboxone 8 mg-2 mg Sublingual Film 1 film, Sublingual, 3 times a day, dissolve under the tongue, # 90 film, 1 Refills, Maintenance, 02/08/22 13:04:00 EDT, [facility][id number], Partial fill upon patient request if the prescription is for a schedule II opioid drug. ALVINA [id number],... Start Date: 02/08/22 Stop Date: 04/09/22 Status: Ordered Suboxone 8 mg-2 mg Sublingual Film 1 film, Sublingual, 3 times a day, dissolve under the tongue, # 90 film, 1 Refills, Maintenance, 09/11/22 4:31:00 EDT, [facility][id number], Partial fill upon patient request if the prescription is for a schedule II opioid drug. ALVINA [id number];... Start Date: 09/11/22 Stop Date: 11/10/22 Status: Ordered Suboxone 8 mg-2 mg Sublingual Film 1 film, Sublingual, 3 times a day, dissolve under the tongue, # 90 film, 1 Refills, Maintenance, 12/10/21 14:40:00 EDT, [facility][id number], Partial fill upon patient request if the prescription is for a schedule II opioid drug. [facility] [id number],... Start Date: 12/10/21 Stop Date: 02/08/22 Status: Ordered Suboxone 8 mg-2 mg Sublingual Film 1 film, Sublingual, 3 times a day, dissolve under the tongue, # 21 film, 0 Refills, Maintenance, 04/12/22 14:58:00 EST, [id number], Partial fill upon patient request if the prescription is for a schedule II opioid drug. [facility] [id number],... Start Date: 04/12/22 Stop Date: 04/19/22 Status: Ordered Suboxone 8 mg-2 mg sublingual film 3 film, Sublingual, Daily, [id number], # 90 film, 1 Refills, Maintenance, 10/21/21 9:55:00 EDT, [facility] #[id number], 3 film Sublingual Daily,x30 days,Instr:[id number], 170, cm, 11/03/21 11:09:00 EDT, Height, 107.3, kg, 06/22/20 13:29:00 EST, Dry... Start Date: 10/21/21 Stop Date: 12/20/21 Status: Ordered Vitamin D3 1000 intl units [...] Urticaria Confirmed Active Varicose vein Confirmed Active Results Radiology Reports * Exam Date Time Procedure Performing Provider Status 11/05/22 5:[address] Head/Brain W/O Contrast Courtney Mijares ao T; Auth (Verified) Notes: (CT Head/Brain W/O Contrast) Reason For Exam: Trauma RESULT: CT Head/Brain W/O Contrast CT Head/Brain W/O Contrast INDICATION: Hx of Present Illness: Hit back of head 2 days ago on bed frame, denies thinners or LOC; reports headache and dizziness since hitting her head; also reports b l ear pressure; Reason: Trauma; Clinical Question(s): Hematoma TECHNIQUE: Noncontrast head CT using axial technique and reconstructed in axial and coronal planes.Iterative reconstruction techniques are used to optimize dose and image quality. COMPARISON: None. 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 BRAIN AND EXTRA-AXIAL SPACES: No parenchymal hemorrhage, midline shift, or mass effect. Gardner-white matter differentiation is wellpreserved. No acute infarct. Negative insular ribbon and hyperdense vessel signs. Ventricles, sulci, and basilar cisterns are normal. No white matter lesions. No subarachnoid hemorrhage. No subdural or epidural collection. CALVARIUM, SKULL BASE, AND SOFT TISSUES: No fractures or suspicious bony lesions. The paranasal sinuses and mastoid air cells are clear. Visualized orbits and globes are intact. The extracranial soft tissues are unremarkable. IMPRESSION: No acute intracranial pathology. WSN: [id number] Ordering Physician: Dameon Munoz Dictated By: Isrrael Garcia MD Dictated Date/Time: 11/05/22 5:49 pm Reviewed By: Isrrael Garcia MD Signed By: Isrrael Garcia MD Signed Date/Time: 11/05/22 5:49 pm Transcribed By: KHADRA Transcribed Date/Time: 11/05/22 5:46 pm Vital Signs Most recent to oldest [Reference Range]: 1 2 Height 170 cm (11/05/22 5:11 PM) Weight 94 kg (11/05/22 5:11 PM) Oxygen Saturation [94-100 %] 95 % (11/05/22:11 PM) 96 % (11/05/22 5:10 PM) Pulse Rate [55-90 bpm] 96 bpm *H* (11/05/22 5:11 PM) 100 bpm *H* (11/05/22 5:10 PM) Blood Pressure [90-138/55-84 mm Hg] 117/ 66mm Hg (11/05/22 5:11 PM) Respiratory Rate [16-30 br/min] 18 br/mi n (11/05/22 5:11 PM) 20 br/min (11/05/22 5:10 PM) Temperature [96.8-100.4 DegF] 97.0 DegF (11/05/22 5:11 PM) Mode of Delivery (Oxygen) Room air (11/05/22 5:11 PM) Room air (11/05/22 5:10 PM) Blood pressure sites Arm, left (11/05/22 5:11 PM) Temperature Route Temporal (11/05/22 5:11 PM) Dry Weight 94 kg (11/05/22 5:11 PM) Dry Weight Obtained Via Standing scale (11/05/22 5:11 PM) Social History Social History Type Response Smoking Status Current every day antony gomez entered on: 09/29/14 Sex Note * Dameon Munoz MD: PERFORM Event Display: Patient Education Leaflets Authored Date: [id number] Trauma Mild Head Injury Concussion ?? 317 Trauma Patient ??? Mild Head Injury or Concussion Aftercare Instructions ?? A concussion is the result of a direct blow to the head, causing disruption to normal brain function. Some people may lose consciousness, experience brief confusion, or feel ???dazed?? just after the event. It is not uncommon to not be able to remember what happened. Symptoms may develop after impact, or may start 1-2 days later. Treatment for both is physical rest, and resting the brain. ?? You may experience some of the following common symptoms: ??? Nausea/vomiting ??? Headache ??? Dizziness ??? Weakness ??? Feeling anxious, depressed or irritable ??? Sleepiness ?? Aftercare Instructions: ??? In case of vomiting, attempt to drink clear liquids ??? Do not drink alcohol ??? Take pain medicine as prescribed ?? Notify your doctor or return to the Emergency Department immediately in case of the following: ??? Excessive or persistent vomiting ??? Headaches that last or get worse, even after prescribed pain medication ??? Progressive weakness in face or limbs, stumbling or blurred vision ??? Seizures or???fits? Sudden confusion ?? Additional questions please contact: Trauma Outpatient Office/[facility] [address] [place], [place] [id number] ? * Dameon Munoz MD: PERFORM Event Display: Patient Education Leaflets Authored Date: [id number] Head Injury: Adult ?? 697 Head Injury (Adult) You have a head injury. It doesn't appear serious at this time. But symptoms of a more serious problem, such as a mild brain injury (concussion) or bruising or bleeding in the brain, may appear later. For this reason, you or someone caring for you will need to watch for the symptoms listed below. Once you are home, also be sure to follow any care additional instructions you were given. ?? Home care Watch for the following symptoms Seek emergency medical care if you have any of these symptoms over the next hours to days: ??? Headache that gets worse or doesn't go away ??? Nausea or vomiting ??? Dizziness ??? Sensitivity to light or noise ??? Unusual sleepiness or grogginess ??? Trouble falling asleep ??? Personality changes ??? Vision changes ??? Memory loss ??? Confusion ??? Trouble walking or clumsiness ??? Loss of consciousness (even for a short time) ??? Inability to be awakened ??? Stiff neck ??? Weakness ornumbness in any part of the body ??? Seizures ?? General care ??? If you were prescribed medicines for pain, use them as directed. Note: Don???t take other medicines for pain without talking to your provider first. ??? To help reduce swelling and pain, apply a cold source to the injured area for up to 20 minutes at a time. Do this as often as directed. Use a cold pack or bag of ice wrapped in a thin towel. Never apply a cold source directly to the skin. ???If you have cuts or scrapes as a result of your head injury, care for them as directed. For the next 24 hours (or longer, if instructed): ??? Don???t drink alcohol or use sedatives or other medicines that make you sleepy. ??? Don???t drive or operate machinery. ??? Don???t do anything strenuous, such as heavy lifting or straining. ??? Limit tasks that require concentration. This includes reading, using a smartphone or computer, watching TV, and playing video games. ??? Don???t return to sports or other activities that could result in another head injury until approved by your healthcare provider. ?? Follow-up care Follow up with your healthcare provider, or as directed. If imaging tests were done, they will be reviewed by a doctor. You will be told the results and any new findings that may affect your care. ?? When to seek medical advice Call your healthcare provider right away if any of these occur: ??? Pain doesn???t get better or worsens ??? New or increased swelling or bruising ??? Increased redness, warmth, drainage, or bleeding from the injured area ??? Fluid drainage or bleeding from the nose or ears ??? Any depression or bony abnormality in the injured area ??? Persistent confusion or lethargy ??? Personality changes ??? Bruising behind the ears or bruising around the eyes ? Patient Care team information Care Team Personnel Name: Roxi MERCHANDISER, Compa Hall Position: [facility] PCO Associate Professional Member Role: PCP Address: Address: [address] [place] [id number]- Name: Blaire Iglesias [place] Position: [facility] RN Member Role: Primary Care Nurse Name: Rhiannon Gibson Position: [facility] RN Member Role: Primary Care Nurse Name: Viral Jolly MD Position: [facility] Physician - Behavioral Health Member Role: Lifetime Consulting Physician Address: Address: [address] [place] [address]- Name: Dameon Munoz MD Position: [facility] ED Medicine MD Member Role: Admitting Physician Address: Address: [address] [place] [address] [place] [address]- Name: Jose Mckeon RN Position: [facility] ED RN W/OE and Tasks Member Role: Patient Care Provider Name: Ruby Martino Position: [facility] ED OA Care Team Related Persons Name: MAIN MOSER Address: home [address] [place] [address] Name: JORGE GARCIA Address: home [address] [place] [address] Name: LOREE SIFUENTES
--- OUTSIDE RECORDS SUMMARY | 2024-03-03 23:36 | XMS_ITS | Continuity of Care Document ---
Author Organization [facility] Address [address] [place] [address]- Care Team Providers Care Display Specialist Name Role Phone Gen BROWN, Claribel Primary Care Physician Encounter [facility] Date(s): 11/01/20 - 03/01/21 [facility] [address] [place] [address]- Attending Physician: Hamlet KU, Milton Jones Allergies, [...] OR WHEEZING, # 18 each, 6 Refills, [id number], 20, INHALE 2 PUFFS BY MOUTH EVERY 4 TO 6 HOURS NEEDED FOR SHORTNESS OF BREATH OR WHEEZING, 170, cm, 08/16/20 15:32:00... Start Date: 01/16/21 Status: Ordered Suboxone 8 mg-2 mg sublingual film 2.5 FILMS, Sublingual, Daily, [id number], # 75 film, 1 Refills, Maintenance, 04/26/20 16:38:00 EST, [facility] #[id number], 2.5 FILMS Sublingual Daily,Instr:[id number], 163, cm, 04/26/20 14:26:00 EST, Height, 105, [...]
--- OUTSIDE RECORDS SUMMARY | 2024-03-03 23:36 | XMS_ITS | Continuity of Care Document ---
Author Organization [facility] [place] Address [address] [place] [address]- Care Team Providers Care Alarm Installation Technician Name Role Phone Fine LAND LAW EXAMINER, Compa Hall Primary Care Physician Encounter [facility] Date(s): 12/24/23 - 01/23/24 [facility] [address] [place] [address]- Allergies, Adverse Reactions, Alerts No Known Allergies Immunizations Given and Recorded Vaccine Date Status Refusal Reason SARS-CoV-2 (COVID-19) mRNA BNT-162b2 vac 09/08/20 Recorded SARS-CoV-2 (COVID-19) mRNA BNT-162m5 vac 08/18/20 Recorded pneumococcal 23-valent vaccine 10/21/16 Given tetanus-diphtheria toxoids (Td) 05/05/03 Recorded Medications albuterol-ipratropium 3 mg-0.5 mg/3 ml inhalation solution 3 mL, Inhalation, 4 times a day, PRN Wheezing/Shortness of Breath, DX: J45.909 do not use ventolineand Nebs at the same time, # 90 mL, 11 Refills, Maintenance, 03/25/23 12:53:00 EST, Solution, [email or web address] #[id number], 3 mL Inhalation 4 times a da... Start Date: 03/25/23 Status: Ordered Breo Ellipta 100 mcg-25 mcg/inh inhalation powder 1 puffs, Inhalation, Daily, RINSE MOUTH AFTERWARDS., # 1 each, 3 Refills, 11/21/22 10:33:00 EDT, [email or web address] #[id number], 1 puffs Inhalation Daily,Instr:RINSE MOUTH AFTERWARDS., 170, cm, 11/19/2313:19:00 EDT, Height, 94.4, kg, 11/08/22 14:35:00 E... Start Date: 11/21/22 Status: Ordered calcium (as citrate)-vitamin D 315 mg-250 intl units oral tablet 2 tablet, By Mouth, 2 times a day, # 120 tablet, 11 Refills, Maintenance, 10/27/23 11:47:00 EDT, Tablet, [email or web address] #[id number], Partial fill upon patient request if the [...] 09/18/23 10:13:00 EDT, Route to Pharmacy Electronically, [email or web address] #[id number], Partial... Start Date: 09/18/23 Stop Date: 03/16/24 Status: Ordered duloxetine 30 mg oral enteric coated capsule 1 capsule = 30 mg, By Mouth, 2 times a day, do not crush or chew, # 180 capsule, 3 Refills, Maintenance, 12/15/23 12:15:00 EDT, [email or web address] #[id number], 170, cm, 11/26/23 7:18:00 EDT, Height, 100, kg, 10/09/23 2:02:00 EDT, Dry Weight Start Date: 12/15/23 Status: Ordered duloxetine 30 mg oral enteric coated capsule 1 capsule = 30 mg, By Mouth, 2 times a day, do not crush or chew, # 180 capsule, 3 Refills, Maintenance, 12/20/22 17:50:00 EDT, [email or web address] #[id number], 170, cm, 12/06/22 0:43:00 EDT, Height, 94.4, kg, 11/08/22 14:35:00 EDT, Dry Weight Start Date: 12/20/22 Status: Ordered fluconazole 150 mg oral tablet 1 tablet = 150 mg, By Mouth, Once, For treatment of Yeast infection, repeat dose if still having symptoms in 72 hours, # 2 tablet, 0 Refills, Soft Stop, 12/19/23 10:58:00 EDT, Tablet, [email or web address] #[id number], Partial fill upon patient request if t... Start Date: 12/19/23 Status: Ordered gabapentin 300 mg oral capsule 300 mg, 1, capsule, By Mouth, 3 times a day, # 270 capsule, Refills 1, Tot. Refills 1, Maintenance,12/15/23 12:15:00 EDT, Route to Pharmacy Electronically, [email or web address] #[id number], Partial fill upon patient request, 170, cm, 11/26/23 7:18:00 EDT,... Start Date: 12/15/23 Status: Ordered gabapentin 300 mg oral capsule 300 mg, 1, capsule, By Mouth, 3 times a day, # 270 capsule, Refills 1, Tot. Refills 1, Maintenance,08/11/23 9:29:00 EDT, Route to Pharmacy Electronically, [email or web address] #[id number], Partial fill upon patient request, 170, cm, 07/23/23 16:32:00 EDT,... Start Date: 08/11/23 Status: Ordered hydroxychloroquine 200 mg oral tablet 1, tablet, By Mouth, 2 times a day, # 60 tablet, Refills 5, Tot. Refills 5, 12/25/23 9:59:00 EDT, Route to Pharmacy Electronically, [email or web address] #[id number], 170, cm, 12/19/23 10:38:00 EDT, Height, 100, kg, 10/09/23 2:02:00 EDT, Dry Weight Start Date: 12/25/23 Status: Ordered hydrOXYzine hydrochloride 25 mg oral tablet See Instructions, TAKE 1 TABLET BY MOUTH TWICE DAILY NEEDED FOR ANXIETY, # 60 tablet, 5 Refills,Maintenance, 09/18/23 10:13:00 EDT, [email or web address] #[id number], 170, cm, 07/23/23 16:32:00 EDT, Height, 100, kg, 04/20/23 21:48:00 EST, Dry Weight Start Date: 09/18/23 Status: Ordered NEBULIZER MACHINE AND TUBING NEBULIZER MACHINE AND TUBING, See Instructions, PRN Wheezing/Shortness of Breath, # 1 each, Refills0, Tot. Refills 0, Maintenance, USE NEEDED FOR WHEEZING DX:, 06/17/23 15:49:00 EST, Supply Start Date: 06/17/23 Status: Ordered NuLYTELY Lemon Pechanga oral powder for reconstitution 240 mL, By Mouth, Every 10 minutes, # 1 each, 0 Refills, Maintenance, 12/03/23 9:52:00 EDT, REC Powder, [email or web address] #[id number], Partial fill upon patient request if the prescription is for a schedule II opioid drug., 170, cm, 11/26/23 7:18:00 EDT... Start Date: 12/03/23 Status: Ordered PHENobarbital 30 mg oral tablet 1 tablet = 30 mg, By Mouth, 2 times a day, # 60 tablet, 1 Refills, Maintenance, 11/20/23 16:42:00 EDT, Tablet, [email or web address] #[id number], IF NOT COVERED, please use goodrx coupon and allow pt to pay OOP; $9.09; BIN [id number]; [facility]; Group [address]; Membe... Start Date: 11/20/23 Status: Ordered PHENobarbital 30 mg oral tablet 1 tablet = 30 mg, By Mouth, 2 times a day, # 60 tablet, 1 Refills, Maintenance, 12/15/23 12:14:00 EDT, Tablet, [email or web address] #[id number], IF NOT COVERED, please use goodrx coupon and allow pt to pay OOP; $9.09; BIN [id number]; [facility]; [address]; Membe... Start Date: 12/15/23 Status: Ordered risperiDONE 1 mg oral tablet 1 mg, 1, tablet, By Mouth, Daily, # 90 tablet, Refills 1, Tot. Refills 1, Maintenance, 08/11/23 9:29:00 EDT, Route to Pharmacy Electronically, [email or web address] #[id number], 170, cm, 07/23/23 16:32:00 EDT, Height, 100, kg, 04/20/23 21:48:00 EST, Dry Weight Start Date: 08/11/23 Stop Date: 02/07/24 Status: Ordered Suboxone 8 mg-2 mg Sublingual Film 3 film, Sublingual, Daily, or as directed, # 90 film, 0 Refills, Maintenance, 12/16/23 14:10:00 EDT, [email or web address] #[id number], Partial fill upon patient request if the prescription is for a schedule II opioid drug. ALVINA [id number], 3 film Sublingual... Start Date: 12/16/23 Stop Date: 01/15/24 Status: Ordered tiZANidine 2 mg oral tablet 2 mg, 1, tablet, By Mouth, 3 times a day, # 84 tablet, Refills 1, Tot. Refills 1, Maintenance, 12/26/23 9:21:00 EDT, Route to Pharmacy Electronically, [email or web address] #[id number], Partial fill upon patient request if the prescription is for a schedule... Start Date: 12/26/23 Stop Date: 02/20/24 Status: Ordered traZODone 50 mg oral tablet 50 mg, 1, tablet, By Mouth, Daily at bedtime, as needed for sleep, # 90 tablet, Refills 0, Tot. Refills 0, Maintenance, 12/15/23 12:16:00 EDT, Route to Pharmacy Electronically, [email or web address] #[id number], Partial fill upon patient request if the pres... Start Date: 12/15/23 Status: Ordered Trelegy Ellipta 200 mcg-62.5 mcg-25 mcg/inh inhalation powder 1 puffs, Inhalation, Daily, at the same time every day, # 3 each, 3 Refills, Maintenance, 07/23/23 16:56:00 EDT, Powder, [email or web address] #[id number], Partial fill upon patient request if the prescription is for a schedule II opioid drug., 1 puffs Inha... Start Date: 07/23/23 Stop Date: 07/17/24 Status: Ordered Ultram 50 mg oral tablet 1 tablet = 50 mg, By Mouth, Every 12 hours, PRN for pain, # 20 tablet, 0 Refills, Maintenance, 10/14/23 9:32:00 EDT, Tablet, [email or web address] #[id number], Partial fill upon patient request if the prescription is for a schedule II opioid drug., 170, cm,... Start Date: 10/14/23 Status: Ordered Ventolin HFA 108 mcg/inh inhalation aerosol with adapter 2 puffs, Inhalation, 4 times a day, PRN for wheezing, # 1 each, 3 Refills, Maintenance, 05/28/23 12:34:00 EST, Aerosol, [facility] #[id number], Partial fill upon patient request if the prescription is for a schedule II opioid drug., 170, cm, 04/04... Start Date: 05/28/23 Status: Ordered Voltaren Arthritis Pain 1% topical gel = 4 Gm, Topically, 4 times a day, # 480 Gm, 4 Refills, Maintenance, 07/24/23 14:31:00 EDT, [facility] #[id number], Partial fill upon patient request if the [...] Team Personnel Name: Compa Diane NP Position: [facility] PCO Associate Professional Member Role: PCP Address: Address: [address] [place] [address] [place] [address]- Name: Blaire Iglesias [place] Position: [facility] Office Staff Member Role: Primary Care Nurse Name: Rhiannon Li [place] Position: [facility] Staff Member Role: Primary Care Nurse Name: Viral Jolly MD Position: [facility] Physician - Behavioral Health Member Role: Lifetime Consulting Physician Address: Address: [address] [place] [address] [place] [address]- Care Team Related Persons Name: MAIN MOSER Address: home [address] [place] [address] Name: JORGE GARCIA Address: home [address] [place] [address] Name: LOREE SIFUENTES
--- OUTSIDE RECORDS SUMMARY | 2024-03-03 23:36 | XMS_ITS | Continuity of Care Document ---
Author Organization [facility] Address [address] [place] [address]- Care Team Providers Care Rebrander Name Role Phone Roxi BROWN, Compa Hall Primary Care Physician Encounter [facility] Date(s): 11/28/22 - 12/28/22 [facility] [address] [place] [address]- Allergies, Adverse Reactions, Alerts No Known Allergies [...] 1 each, 3 Refills, 11/21/22 10:33:00 EDT, [email or web address] #[id number], 1 puffs Inhalation Daily,Instr:RINSE MOUTH AFTERWARDS., 170, cm, 11/19/2313:19:00 EDT, Height, 94.4, kg, 11/08/22 14:35:00 E... Start Date: 11/21/22 Status: Ordered cloNIDine 0.1 mg oral tablet 0.05 mg, 0.5, tablet, By Mouth, 4 times a day, PRN, # 60 tablet, Refills 1, Tot. Refills 1, Maintenance, anxiety, panic, withdrawal symptoms, 12/20/22 17:50:00 EDT, Route to Pharmacy Electronically, [facility] #[id number], Partial fill upon patie... Start Date: 12/20/22 Status: Ordered diclofenac 1% topical gel = 2 Gm, Topically, 2 times a day, # 100 Gm, 2 Refills, 11/29/22 12:21:00 EDT, [facility] #[id number], 25, 2 Gm Topically 2 times a day, 170, cm, 11/19/22 14:19:00 EDT, Height, 94.4, kg, 11/08/2313:35:00 EDT, Dry Weight Start Date: 11/29/22 Status: Ordered duloxetine 30 mg oral enteric coated capsule 1 capsule = 30 mg, By Mouth, 2 times a day, do not crush or chew, # 180 capsule, 3 Refills, Maintenance, 12/20/22 17:50:00 EDT, [facility] #[id number], 170, cm, 12/06/22 0:43:00 EDT, Height, 94.4, kg, 11/08/22 14:35:00 EDT, Dry Weight Start Date: 12/20/22 Status: Ordered famotidine 20 mg oral tablet 20 mg, 1, tablet, By Mouth, Daily, OV 5-6-20, # 30 tablet, Refills 5, Tot. Refills 5, Maintenance, 08/21/20 12:25:00 EDT, Route to Pharmacy Electronically, [facility]/pharmacy #[id number], 170, cm, 08/16/20 15:32:00 EDT, Height, 107.3, kg, 06/22/20 13:29:00 EST, D... Start Date: 08/21/20 Status: Ordered gabapentin 300 mg oral capsule 300 mg, 1, capsule, By Mouth, 3 times a day, # 270 capsule, Refills 1, Tot. Refills 1, Maintenance,12/20/22 17:52:00 EDT, Route to Pharmacy Electronically, [facility] #[id number], Partial fill upon patient request, 170, cm, 12/06/22 0:43:00 EDT,... Start Date: 12/20/22 Status: Ordered gabapentin 300 mg oral capsule 300 mg, 1, capsule, By Mouth, 3 times a day, # 270 capsule, Refills 3, Tot. Refills 3, Maintenance,02/19/22 14:28:00 EDT, Route to Pharmacy Electronically, [facility] #[id number], Partial fill upon patient request, 170, cm, 03/07/21 11:09:00 EDT... Start Date: 02/19/22 Status: Ordered hydroxychloroquine 200 mg oral tablet 1, tablet, By Mouth, 2 times a day, # 60 tablet, Refills 5, Tot. Refills 5, 05/16/22 16:23:00 EST, Route to Pharmacy Electronically, [facility] #[id number], 175, cm, 05/01/22 15:32:00 EST, Height, 75, [...] 1 Refills, Maintenance, 12/23/22 15:41:00 EDT, Tablet, [facility] #[id number], IF NOT COVERED, please use goodrx coupon and allow pt to pay OOP; $9.09; BIN 01... Start Date: 12/23/22 Status: Ordered predniSONE 20 [...] 18 each, 3 Refills, 11/22/22 15:59:00 EDT, [facility] #[id number], 20, 2 puffs Inhalation Every 4 to6 hours,PRN: NEEDED FOR SHORTNESS OF BREATH OR WH... Start Date: 11/22/22 Status: Ordered ProAir HFA 90 mcg/inh inhalation aerosol 2 puffs, Inhalation, Every 4 to 6 hours, PRN NEEDED FOR SHORTNESS OF BREATH OR WHEEZING, # 18 Gm, 5 Refills, 03/20/22 16:08:00 EST, [facility] #[id number], 2 puffs Inhalation Every 4 to 6 hours,PRN: NEEDED FOR SHORTNESS OF BREATH OR WHEEZING... Start Date: 03/20/22 Status: Ordered risperiDONE 1 mg oral tablet 1 mg, 1, tablet, By Mouth, Daily, # 90 tablet, Refills 3, Tot. Refills 3, Maintenance, 12/20/22 17:51:00 EDT, Route to Pharmacy Electronically, [facility] #[id number], 170, cm, 12/06/22 0:43:00 EDT, Height, 94.4, [...] film, 1 Refills, Maintenance, 11/14/22 10:32:00 EDT, [facility] #[id number], Partial fill upon patient request if the prescription is for a schedule II opioid drug. ALVINA [id number];... Start Date: 11/14/22 Stop Date: 01/13/23 Status: [...] Team Personnel Name: Compa Diane NP Position: [facility] PCO Associate Professional Member Role: PCP Address: Address: [address] [place] [address]- Name: Blaire Iglesias [place] Position: [facility] RN Member Role: Primary Care Nurse Name: Rhiannon Gibson Position: [facility] RN Member Role: Primary Care Nurse Name: Viral Jolly MD Position: [facility] Physician - Behavioral Health Member Role: Lifetime Consulting Physician Address: Address: [address] [place] [address]- Care Team Related Persons Name: MAIN MOSER Address: home [address] [place] [address] Name: JORGE GARCIA Address: home [address] [place] [address] Name: LOREE SIFUENTES
--- OUTSIDE RECORDS SUMMARY | 2024-03-03 23:37 | XMS_ITS | Continuity of Care Document ---
Author Organization [facility] [place] Address [address] [place] [address]- Care Team Providers Care Freight Car Loader Name Role Phone Angela BROWN, Robyn Martinez Primary Care Physician Encounter [facility] Date(s): 05/06/20 - 06/05/20 [facility] [place] [address] [place] [address]- Allergies, Adverse Reactions, Alerts Substance Reaction Severity [...] 11 Refills, Maintenance, 05/31/19 17:40:00 EST, Solution, [facility]/pharmacy #[id number], 3 mL Inhalation 4 times a day,PRN:Whe... Start Date: 05/31/19 Status: Ordered clindamycin 300 mg oral capsule 1 capsule = 300 mg, By Mouth, Every 6 hours, for 10 days, # 40 capsule, 0 Refills, Acute 06/13/20 14:51:00 EST, 06/03/20 14:51:00 EST, Capsule, [facility] #[id number], Partial fill upon patient request if the prescription is for a schedule II opi... Start Date: 06/03/20 Stop Date: 06/13/20 Status: Ordered EC Naprosyn 500 mg oral enteric coated tablet 1 tablet = 500 mg, By Mouth, 2 times a day, # 20 tablet, 0 Refills, Maintenance, 06/03/20 14:52:00 EST, EC Tablet, [facility] #[id number], Partial fill upon patient request if the prescription is for a schedule II opioid drug., 170, cm, 06/03/20... Start Date: 06/03/20 Status: Ordered Suboxone 8 mg-2 mg sublingual film 2.5 FILMS, Sublingual, Daily, [id number], # 75 film, 1 Refills, Maintenance, 04/26/20 16:38:00 EST, [facility] #[id number], 2.5 FILMS Sublingual Daily,Instr:[id number], 163, cm, 04/26/20 14:26:00 EST, Height, 105, [...]
--- OUTSIDE RECORDS SUMMARY | 2024-03-03 23:37 | XMS_ITS | Continuity of Care Document ---
Author Organization [facility] Address [address] [place] [address]- Care Team Providers Care Measurer Machine Name Role Phone Roxi BROWN, Compa Hall Primary Care Physician Encounter [facility] Date(s): 05/22/23 - 06/21/23 [facility] [address] [place] [address]- Attending Physician: Admtr, Maddie Admitting Physician: Admtr, Ar8 Referring Physician: Admtr, [...] 11 Refills, Maintenance, 03/25/23 12:53:00 EST, Solution, [facility] #[id number], 3 mL Inhalation 4 times a da... Start Date: 03/25/23 Status: Ordered Breo Ellipta 100 mcg-25 mcg/inh inhalation powder 1 puffs, Inhalation, Daily, RINSE MOUTH AFTERWARDS., # 1 each, 3 Refills, 11/21/22 10:33:00 EDT, [facility] #[id number], 1 puffs Inhalation Daily,Instr:RINSE MOUTH AFTERWARDS., 170, cm, 11/19/2313:19:00 EDT, Height, 94.4, kg, 11/08/22 14:35:00 E... Start Date: 11/21/22 Status: Ordered cloNIDine 0.1 mg oral tablet 0.05 mg, 0.5, tablet, By Mouth, 4 times a day, PRN, stay hydrated, # 120 tablet, Refills 3, Tot. Refills 3, Maintenance, anxiety, panic, withdrawal symptoms, 03/25/23 12:52:00 EST, Route to Pharmacy Electronically, [facility] #[id number], Partial... Start Date: 03/25/23 Stop Date: 09/10/23 Status: Ordered duloxetine 30 mg oral enteric coated capsule 1 capsule = 30 mg, By Mouth, 2 times a day, do not crush or chew, # 180 capsule, 3 Refills, Maintenance, 12/20/22 17:50:00 EDT, [facility] #[id number], 170, cm, 12/06/22 0:43:00 EDT, Height, 94.4, kg, 11/08/22 14:35:00 EDT, Dry Weight Start Date: 12/20/22 Status: Ordered gabapentin 300 mg oral capsule 300 mg, 1, capsule, By Mouth, 3 times a day, # 270 capsule, Refills 1, Tot. Refills 1, Maintenance,02/12/23 10:36:00 EDT, Route to Pharmacy Electronically, [facility] #[id number], Partial fill upon patient request, 170, cm, 01/31/23 10:06:00 EDT... Start Date: 02/12/23 Status: Ordered hydroxychloroquine 200 mg oral tablet 1, tablet, By Mouth, 2 times a day, # 60 tablet, Refills 5, Tot. Refills 5, 04/15/23 13:55:00 EST, Route to Pharmacy Electronically, [facility] #[id number], 170, cm, 01/31/23 10:06:00 EDT, Height, 94.4, kg, 11/08/22 14:35:00 EDT, Dry Weight Start Date: 04/15/23 Status: Ordered hydrOXYzine hydrochloride 25 mg oral tablet 1 tablet = 25 mg, By Mouth, Daily, PRN anxiety, for 30 days, # 30 tablet, 3 Refills, Acute 07/23/2411:53:00 EDT, 03/25/23 12:53:00 EST, Tablet, [facility] #[id number], Partial fill upon patientrequest if the prescription [...] 02/12/23 10:37:00 EDT, Route to Pharmacy Electronically, [facility] #[id number], 170, cm, 01/31/23 10:06:00EDT, Height, 94.4, kg, 11/08/22 14:35:00 EDT, Dry W... Start Date: 02/12/23 Stop Date: 08/11/23 Status: Ordered Suboxone 8 mg-2 mg Sublingual Film 1 film, Sublingual, 3 times a day, dissolve under the tongue, # 90 film, 1 Refills, Maintenance, 05/14/23 11:49:00 EST, [facility] #[id number], Partial fill upon patient request if the prescription is for a schedule II opioid drug. ALVINA [id number];... Start Date: 05/14/23 Stop Date: 07/13/23 Status: Ordered tiZANidine 2 mg oral tablet 2 mg, 1, tablet, By Mouth, 3 times a day, # 21 tablet, Refills 0, Tot. Refills 0, Maintenance, 04/22/23 9:05:00 EST, Route to Pharmacy Electronically, [facility] #[id number], Partial fill upon patient request if the prescription is for a schedule... Start Date: 04/22/23 Stop Date: 04/29/23 Status: Ordered Ventolin HFA 108 mcg/inh inhalation aerosol with adapter 2 puffs, Inhalation, 4 times a day, PRN for wheezing, # 1 each, 3 Refills, Maintenance, 05/28/23 12:34:00 EST, Aerosol, [facility] #[id number], Partial fill upon patient request if the prescription is for a schedule II opioid drug., 170, cm, 04/04... Start Date: 05/28/23 Status: Ordered Voltaren Arthritis Pain 1% topical gel = 4 Gm, Topically, 4 times a day, # 480 Gm, 4 Refills, Maintenance, 04/10/23 11:37:00 EST, [facility] #[id number], Partial fill upon patient request if the [...] Personnel Name: Roxi BROWN, Compa Hall Position: [facility] PCO Associate Professional Member Role: PCP Address: Address: [address] [place] [address] [place] [address]- Name: Blaire Iglesias [place] Position: [facility] RN Member Role: Primary Care Nurse Name: Rhiannon Gibson Position: [facility] RN Member Role: Primary Care Nurse Name: Viral Jolly MD Position: [facility] Physician - Behavioral Health Member Role: Lifetime Consulting Physician Address: Address: [address] [place] [address] [place] [address]- Care Team Related Persons Name: MAIN MOSER Address: [address] [place] [address] Name: JORGE GARCIA Address: [address] [place] [address] Name: LOREE SIFUENTES
--- OUTSIDE RECORDS SUMMARY | 2024-03-03 23:37 | XMS_ITS | Continuity of Care Document ---
Author Organization [facility] Address [address] [place] [address] [place] [address]- Care Team Providers Care Claim Administrator Name Role Phone Roxi BROWN, Compa Hall Primary Care Physician En[place] [facility] Date(s): 05/13/23 - 09/10/23 [facility] [address] [address] Attending Physician: Santosh KU, Carleen Braxton Admitting Physician: Santosh KU, Carleen Braxton Referring Physician: Compa Diane NP Allergies, Adverse [...] 11 Refills, Maintenance, 03/25/23 12:53:00 EST, Solution, [facility] #[id number], 3 mL Inhalation 4 times a da... Start Date: 03/25/23 Status: Ordered Breo Ellipta 100 mcg-25 mcg/inh inhalation powder 1 puffs, Inhalation, Daily, [employer]., # 1 each, 3 Refills, 11/21/22 10:33:[id number], 1 puffs Inhalation Daily,Instr:RIN[employer] M[employer] AFTERWAR[employer]., 170, cm, 11/19/2313:19:00 EDT, Height, 94.4, kg, 11/08/22 14:35:00 E... Start Date: 11/21/22 Status: Ordered cloNIDine 0.1 mg oral tablet 0.05 mg, 0.5, tablet, By Mouth, 4 times a day, PRN, stay hydrated, # 120 tablet, Refills 0, Tot. Refills 0, Maintenance, anxiety, panic, withdrawal symptoms, 08/11/23 9:29:00 EDT, Route to Pharmacy Electronically, [facility] #[id number], Partial... Start Date: 08/11/23 Stop Date: 09/10/23 Status: Ordered duloxetine 30 mg oral enteric coated capsule 1 capsule = 30 mg, By Mouth, 2 times a day, do not crush or chew, # 180 capsule, 3 Refills, Maintenance, 12/20/22 17:50:00 EDT, [facility] #[id number], 170, cm, 12/06/22 0:43:00 EDT, Height, 94.4, kg, 11/08/22 14:35:00 EDT, Dry Weight Start Date: 12/20/22 Status: Ordered gabapentin 300 mg oral capsule 300 mg, 1, capsule, By Mouth, 3 times a day, # 270 capsule, Refills 1, Tot. Refills 1, Maintenance,08/11/23 9:29:00 EDT, Route to Pharmacy Electronically, [facility] #[id number], Partial fill upon patient request, 170, cm, 07/23/23 16:32:00 EDT,... Start Date: 08/11/23 Status: Ordered hydroxychloroquine 200 mg oral tablet 1, tablet, By Mouth, 2 times a day, # 60 tablet, Refills 5, Tot. Refills 5, 04/15/23 13:55:00 EST, Route to Pharmacy Electronically, [facility] #[id number], 170, cm, 01/31/23 10:06:00 EDT, Height, 94.4, kg, 11/08/22 14:35:00 EDT, Dry Weight Start Date: 04/15/23 Status: Ordered NEBULIZER MACHINE AND TUBING NEBULIZER [...] 1 Refills, Maintenance, 08/11/23 9:31:00 EDT, Tablet, [facility] #[id number], IF NOT COVERED, please use [employer] coupon and allow pt to payOOP; $9.09; [facility] [id number]; [facility]; Group [id number]; Member... Start Date: 08/11/23 Status: Ordered risperiDONE 1 mg oral tablet 1 mg, 1, tablet, By Mouth, Daily, # 90 tablet, Refills 1, Tot. Refills 1, Maintenance, 08/11/23 9:29:00 EDT, Route to Pharmacy Electronically, [facility] #[id number], 170, cm, 07/23/23 16:32:00 EDT, Height, 100, kg, 04/20/23 21:48:00 EST, Dry Weight Start Date: 08/11/23 Stop Date: 02/07/24 Status: Ordered Suboxone 8 mg-2 mg Sublingual Film 1 film, Sublingual, 3 times a day, dissolve under the tongue, # 90 film, 1 Refills, Maintenance, 07/13/23 11:49:00 EDT, [facility] #[id number], Partial fill upon patient request if the prescription is for a schedule II opioid drug. ALVINA [id number];... Start Date: 07/13/23 Stop Date: 09/11/23 Status: Ordered tiZANidine 2 mg oral tablet 2 mg, 1, tablet, By Mouth, 3 times a day, # 84 tablet, Refills 1, Tot. Refills 1, Maintenance, 09/08/23 18:10:00 EDT, Route to Pharmacy Electronically, [facility] #[id number], Partial fill upon patient request if the prescription is for a schedul... Start Date: 09/08/23 Stop Date: 11/03/23 Status: Ordered Trelegy Ellipta 200 mcg-62.5 mcg-25 mcg/inh inhalation powder 1 puffs, Inhalation, Daily, at the same time every day, # 3 each, 3 Refills, Maintenance, 07/23/23 16:56:00 EDT, Powder, [facility] #[id number], Partial fill upon patient request if the prescription is for a schedule II opioid drug., 1 puffs Inha... Start Date: 07/23/23 Stop Date: 07/17/24 Status: Ordered Ventolin HFA 108 mcg/inh inhalation aerosol with adapter 2 puffs, Inhalation, 4 times a day, PRN for wheezing, # 1 each, 3 Refills, Maintenance, 05/28/23 12:34:00 EST, Aerosol, [facility] #[id number], Partial fill upon patient request if the prescription is for a schedule II opioid drug., 170, cm, 04/04... Start Date: 05/28/23 Status: Ordered Voltaren Arthritis Pain 1% topical gel = 4 Gm, Topically, 4 times a day, # 480 Gm, 4 Refills, Maintenance, 07/24/23 14:31:00 EDT, [facility] #[id number], Partial fill upon patient request if the [...] Team Personnel Name: Compa Diane NP Position: [facility] PCO Associate Professional Member Role: PCP Address: Address: [address] [place] [address] [place] [address]- Name: Blaire Iglesias [place] Position: [facility] RN Member Role: Primary Care Nurse Name: Rhiannon Gibson Position: [facility] RN Member Role: Primary Care Nurse Name: Viral Jolly MD Position: [facility] Physician - Behavioral Health Member Role: Lifetime Consulting Physician Address: Address: [address] [place] [address]- Care Team Related Persons Name: MAIN MOSER Address: home [address] [place] [address] Name: JORGE GARCIA Address: home [address] [place] [address] Name: LOREE SIFUENTES
--- OUTSIDE RECORDS SUMMARY | 2024-03-03 23:37 | XMS_ITS | Continuity of Care Document ---
Author Organization [facility] [place] Address [address] [place] [address]- Care Team Providers Care Printing Supplies Sales Representative Name Role Phone Fine OPERATING ROOM REGISTERED NURSE, Compa Hall Primary Care Physician ( [phone] Encounter [facility] Date(s): 03/18/23 - 04/17/23 [facility] [place] [address] [place] [address]- Allergies, Adverse Reactions, Alerts No Known Allergies Immunizations Given and Recorded Vaccine Date Status Refusal Reason SARS-CoV-2 (COVID-19) mRNA BNT-162b2 vac 09/08/20 Recorded SARS-CoV-2 (COVID-19) mRNA BNT-162e6 vac 08/18/20 Recorded pneumococcal 23-valent vaccine 10/21/16 Given tetanus-diphtheria toxoids (Td) 05/05/03 Recorded Medications albuterol-ipratropium 3 mg-0.5 mg/3 ml inhalation solution 3 mL, Inhalation, 4 times a day, PRN Wheezing/Shortness of Breath, DX: J45.909 do not use ventolineand Nebs at the same time, # 90 mL, 11 Refills, Maintenance, 03/25/23 12:53:00 EST, Solution, [facility] #[id number], 3 mL Inhalation 4 times a da... Start Date: 03/25/23 Status: Ordered Augmentin 875 mg-125 mg oral tablet 1 tablet, By Mouth, Every 12 hours, for 7 days, # 14 tablet, 0 Refills, Acute 04/24/23 15:20:00 EST, 04/17/23 15:20:00 EST, Tablet, [facility] #[id number], Partial fill upon patient request if the prescription is for a schedule II opioid drug., 1... Start Date: 04/17/23 Stop Date: 04/24/23 Status: Ordered Breo Ellipta 100 mcg-25 mcg/inh inhalation powder 1 puffs, Inhalation, Daily, [employer]., # 1 each, 3 Refills, 11/21/22 10:33:00 EDT, [facility] #[id number], 1 puffs Inhalation Daily,Instr:RIN[employer] MOUTH AFTERWARDS., 170, cm, 11/19/2313:19:00 EDT, Height, 94.4, kg, 11/08/22 14:35:00 E... Start Date: 11/21/22 Status: Ordered Caltrate 600 + D oral tablet 1 tablet, By Mouth, 2 times a day, # 60 tablet, 11 Refills, Maintenance, 04/10/23 11:37:00 EST, Tablet, [facility] #[id number], Partial fill upon patient request if the [...] 03/25/23 12:52:00 EST, Route to Pharmacy Electronically, [facility] #[id number], Partial... Start Date: 03/25/23 Status: Ordered duloxetine 30 mg oral enteric coated capsule 1 capsule = 30 mg, By Mouth, 2 times a day, do not crush or chew, # 180 capsule, 3 Refills, Maintenance, 12/20/22 17:50:00 EDT, [facility] #[id number], 170, cm, 12/06/22 0:43:00 EDT, Height, 94.4, kg, 11/08/22 14:35:00 EDT, Dry Weight Start Date: 12/20/22 Status: Ordered famotidine 20 mg oral tablet 20 mg, 1, tablet, By Mouth, Daily, OV 5-6-20, # 30 tablet, Refills 5, Tot. Refills 5, Maintenance, 08/21/20 12:25:00 EDT, Route to Pharmacy Electronically, [facility]/pharmacy #[id number], 170, cm, 08/16/20 15:32:00 EDT, Height, 107.3, kg, 06/22/20 13:29:00 EST, D... Start Date: 08/21/20 Status: Ordered gabapentin 300 mg oral capsule 300 mg, 1, capsule, By Mouth, 3 times a day, # 270 capsule, Refills 1, Tot. Refills 1, Maintenance,02/12/23 10:36:00 EDT, Route to Pharmacy Electronically, [facility] #[id number], Partial fill upon patient request, 170, cm, 01/31/23 10:06:00 EDT... Start Date: 02/12/23 Status: Ordered hydroxychloroquine 200 mg oral tablet 1, tablet, By Mouth, 2 times a day, # 60 tablet, Refills 5, Tot. Refills 5, 04/15/23 13:55:00 EST, Route to Pharmacy Electronically, [facility] #[id number], 170, cm, 01/31/23 10:06:00 EDT, Height, 94.4, kg, 11/08/22 14:35:00 EDT, Dry Weight Start Date: 04/15/23 Status: Ordered hydrOXYzine hydrochloride 25 mg oral tablet 1 tablet = 25 mg, By Mouth, Daily, PRN anxiety, for 30 days, # 30 tablet, 3 Refills, Acute 07/23/2411:53:00 EDT, 03/25/23 12:53:00 EST, Tablet, [facility] #[id number], Partial fill upon patientrequest if the prescription is for a schedule II op... Start Date: 03/25/23 Stop Date: 07/23/23 Status: Ordered predniSONE 20 mg oral tablet 2 tablet = 40 mg, By Mouth, Daily, for 5 days, # 10 tablet, 0 Refills, Acute 04/22/23 15:21:00 EST,04/17/23 15:21:00 EST, Tablet, [facility] #[id number], Partial fill upon patient request if the prescription is for a schedule II opioid drug., 17... Start Date: 04/17/23 Stop Date: 04/22/23 Status: Ordered ProAir HFA 90 mcg/inh inhalation aerosol 2 puffs, Inhalation, Every 4 to 6 hours, PRN NEEDED FOR SHORTNESS OF BREATH OR WHEEZING, # 18 Gm, 5 Refills, 10/03/23 10:36:00 EDT, [facility] #[id number], 2 puffs Inhalation Every 4 to 6 hours,PRN: NEEDED FOR SHORTNESS OF BREATH OR WHEEZING... Start Date: 02/04/23 Status: Ordered risperiDONE 1 mg oral tablet 1 mg, 1, tablet, By Mouth, Daily, # 90 tablet, Refills 1, Tot. Refills 1, Maintenance, 02/12/23 10:37:00 EDT, Route to Pharmacy Electronically, [facility] #[id number], 170, cm, 01/31/23 10:06:00EDT, Height, 94.4, kg, 11/08/22 14:35:00 EDT, Dry W... Start Date: 02/12/23 Stop Date: 08/11/23 Status: Ordered Suboxone 8 mg-2 mg Sublingual Film 1 film, Sublingual, 3 times a day, dissolve under the tongue, # 90 film, 1 Refills, Maintenance, 03/14/23 10:32:00 EST, [facility] #[id number], Partial fill upon patient request if the prescription is for a schedule II opioid drug. ALVINA [id number];... Start Date: 03/14/23 Stop Date: 05/13/23 Status: Ordered Suboxone 8 mg-2 mg sublingual film 90 each, 0 Refill(s), DISSOLVE 1 FILM UNDER THE TONGUE THREE TIMES DAILY FOR 30 DAYS, 0 Refills, 11/19/22 13:51:00 EDT, Partial fill upon patient request if the prescription is for a schedule II opioid drug. Start Date: 11/19/22 Status: Ordered Ventolin HFA 108 mcg/inh inhalation aerosol with adapter 2 puffs, Inhalation, 4 times a day, PRN for wheezing, # 18 Gm, 0 Refills, Maintenance, 04/17/23 15:20:00 EST, Aerosol, [facility] #[id number], Partial fill upon patient request if the prescription is for a schedule II opioid drug., 170, cm, 04/17... Start Date: 04/17/23 Status: Ordered Voltaren Arthritis Pain 1% topical gel = 4 Gm, Topically, 4 times a day, # 480 Gm, 4 Refills, Maintenance, 04/10/23 11:37:00 [facility][id number], Partial fill upon patient request if the prescription is for a schedule II opioid drug., 4 Gm Topically 4 times a day, 170, cm, . Start Date: 04/10/23 Status: Ordered Problem List [...] Team Personnel Name: Compa Diane NP Position: [facility] PCO Associate Professional Member Role: PCP Address: Address: [address] [place] [address] [place] [address]- Name: Blaire Iglesias [place] Position: [facility] RN Member Role: Primary Care Nurse Name: Rhiannon Gibson Position: [facility] RN Member Role: Primary Care Nurse Name: Viral Jolly MD Position: [facility] Physician - Behavioral Health Member Role: Lifetime Consulting Physician Address: Address: [address] [place] [address]- Care Team Related Persons Name: MAIN MOSER Address: home [address] [place] [address] Name: JORGE GARCIA Address: home [address] [place] [address] Name: LOREE SIFUENTES
--- OUTSIDE RECORDS SUMMARY | 2024-03-03 23:37 | XMS_ITS | Continuity of Care Document ---
Author Organization [facility] Address [address] [place] [address]- Care Team Providers Care Surgery Technician Name Role Phone Robyn Miller NP Primary Care Physician Encounter [facility] Date(s): 06/21/19 - 09/15/[address] [address] Attending Physician: Susan BROWN, Maricel Webb Admitting Physician: Susan BROWN, Maricel Webb Referring Physician: Robyn Miller NP Allergies, Adverse [...]
--- OUTSIDE RECORDS SUMMARY | 2024-03-03 23:37 | XMS_ITS | Continuity of Care Document ---
Author Organization [facility] [place] Address [address] [place] [address]- Care Team Providers Care Underwater Roboticist Name Role Phone Roxi BROWN, Compa Hall Primary Care Physician ( [phone] Encounter [facility] Date(s): 04/21/23 - 05/21/23 [facility] [place] [address] [place] [address]- Allergies, Adverse Reactions, Alerts No Known Allergies [...] 11 Refills, Maintenance, 03/25/23 12:53:00 EST, Solution, [facility] #[id number], 3 mL Inhalation 4 times a da... Start Date: 03/25/23 Status: Ordered Breo Ellipta 100 mcg-25 mcg/inh inhalation powder 1 puffs, Inhalation, Daily, [employer]WARDS., # 1 each, 3 Refills, 11/21/22 10:33:00 EDT, [facility] #[id number], 1 puffs Inhalation Daily,Instr:RIN[employer] MOUTH AFTERWARDS., 170, cm, 11/19/2313:19:00 EDT, Height, 94.4, kg, 11/08/22 14:35:00 E... Start Date: 11/21/22 Status: Ordered cloNIDine 0.1 mg oral tablet 0.05 mg, 0.5, tablet, By Mouth, 4 times a day, PRN, stay hydrated, # 60 tablet, Refills 3, Tot. Refills 3, Maintenance, anxiety, panic, withdrawal symptoms, 03/25/23 12:52:00 EST, Route to Pharmacy Electronically, [facility] #[id number], Partial... Start Date: 03/25/23 Status: Ordered duloxetine 30 mg oral enteric coated capsule 1 capsule = 30 mg, By Mouth, 2 times a day, do not crush or chew, # 180 capsule, 3 Refills, Maintenance, 12/20/22 17:50:00 EDT, [facility] #[id number], 170, cm, 12/06/22 0:43:00 EDT, Height, 94.4, kg, 11/08/22 14:35:00 EDT, Dry Weight Start Date: 12/20/22 Status: Ordered gabapentin 300 mg oral capsule 300 mg, 1, capsule, By Mouth, 3 times a day, # 270 capsule, Refills 1, Tot. Refills 1, Maintenance,02/12/23 10:36:00 EDT, Route to Pharmacy Electronically, [facility] #[id number], Partial fill upon patient request, 170, cm, 01/31/23 10:06:00 EDT... Start Date: 02/12/23 Status: Ordered hydroxychloroquine 200 mg oral tablet 1, tablet, By Mouth, 2 times a day, # 60 tablet, Refills 5, Tot. Refills 5, 04/15/23 13:55:00 EST, Route to Pharmacy Electronically, [facility] #[id number], 170, cm, 01/31/23 10:06:00 EDT, Height, 94.4, kg, 11/08/22 14:35:00 EDT, Dry Weight Start Date: 04/15/23 Status: Ordered hydrOXYzine hydrochloride 25 mg oral tablet 1 tablet = 25 mg, By Mouth, Daily, PRN anxiety, for 30 days, # 30 tablet, 3 Refills, Acute 07/23/2411:53:00 EDT, 03/25/23 12:53:00 EST, Tablet, [facility] #[id number], Partial fill upon patientrequest if the prescription is for a schedule II op... Start Date: 03/25/23 Stop Date: 07/23/23 Status: Ordered risperiDONE 1 mg oral tablet 1 mg, 1, tablet, By Mouth, Daily, # 90 tablet, Refills 1, Tot. Refills 1, Maintenance, 02/12/23 10:37:00 EDT, Route to Pharmacy Electronically, [facility] #[id number], 170, cm, 01/31/23 10:06:00EDT, Height, 94.4, kg, 11/08/22 14:35:00 EDT, Dry W... Start Date: 02/12/23 Stop Date: 08/11/23 Status: Ordered Suboxone 8 mg-2 mg Sublingual Film 1 film, Sublingual, 3 times a day, dissolve under the tongue, # 90 film, 1 Refills, Maintenance, 05/14/23 11:49:00 EST, [facility] #[id number], Partial fill upon patient request if the prescription is for a schedule II opioid drug. [facility]INA [id number];... Start Date: 05/14/23 Stop Date: 07/13/23 Status: Ordered tiZANidine 2 mg oral tablet 2 mg, 1, tablet, By Mouth, 3 times a day, # 21 tablet, Refills 0, Tot. Refills 0, Maintenance, 04/22/23 9:05:00 EST, Route to Pharmacy Electronically, [facility] #[id number], Partial fill upon patient request if the prescription is for a schedule... Start Date: 04/22/23 Stop Date: 04/29/23 Status: Ordered Ventolin HFA 108 mcg/inh inhalation aerosol with adapter 2 puffs, Inhalation, 4 times a day, PRN for wheezing, # 1 each, 3 Refills, Maintenance, 05/13/23 11:21:00 EST, Aerosol, [facility] #[id number], Partial fill upon patient request if the prescription is for a schedule II opioid drug., 170, cm, 04/04... Start Date: 05/13/23 Status: Ordered Voltaren Arthritis Pain 1% topical gel = 4 Gm, Topically, 4 times a day, # 480 Gm, 4 Refills, Maintenance, 04/10/23 11:37:00 EST, [facility] #[id number], Partial fill upon patient request if the prescription is for a schedule II opioid drug., 4 Gm Topically 4 times a day, 170, cm, ... Start Date: 04/10/23 Status: Ordered [facility] PAIN RELIEVING LIDOCAINE PATCH 4% [facility] PAIN RELIEVING LIDOCAINE PATCH 4%, See Instructions, [...] Personnel Name: Roxi BROWN, Compa Hall Position: [facility] PCO Associate Professional Member Role: PCP Address: Address: [address] [facility] [place] [address]- [place] Name: Blaire Iglesias [place] Position: [facility] RN Member Role: Primary Care Nurse Name: Rhiannon Gibson Position: [facility] RN Member Role: Primary Care Nurse Name: Viral Jolly MD Position: [facility] Physician - Behavioral Health Member Role: Lifetime Consulting Physician Address: Address: [address] [place] [address]- Care Team Related Persons Name: MAIN MOSER Address: home [address] [place] [address] Name: JORGE GARCIA Address: home [address] [place] [address] Name: LOREE SIFUENTES
--- OUTSIDE RECORDS SUMMARY | 2024-03-03 23:37 | XMS_ITS | Continuity of Care Document ---
Author Organization [facility] [place] Address [address] [place] [address]- Care Team Providers Care Aquatics Instructor Name Role Phone Roxi BROWN, Compa Hall Primary Care Physician Encounter [facility] Date(s): 09/18/23 - 10/18/23 [facility] [place] [address] [place] [address]- Allergies, Adverse Reactions, Alerts No Known Allergies [...] opioid drug. Start Date: 09/25/23 Status: Ordered albuterol-ipratropium 3 mg-0.5 mg/3 ml inhalation solution 3 mL, Inhalation, 4 times a day, PRN Wheezing/Shortness of Breath, DX: J45.909 do not use ventolineand Nebs at the same time, # 90 mL, 11 Refills, Maintenance, 03/25/23 12:53:00 EST, Solution, [facility] #[id number], 3 mL Inhalation 4 times a da... Start Date: 03/25/23 Status: Ordered Breo Ellipta 100 mcg-25 mcg/inh inhalation powder 1 puffs, Inhalation, Daily, RINSE MOUTH AFTERWARDS., # 1 each, 3 Refills, 11/21/22 10:33:00 EDT, [facility] #[id number], 1 puffs Inhalation Daily,Instr:RINSE MOUTH AFTERWARDS., 170, cm, 11/19/2313:19:00 EDT, Height, 94.4, kg, 11/08/22 14:35:00 E... Start Date: 11/21/22 Status: Ordered cloNIDine 0.1 mg oral tablet 0.05 mg, 0.5, tablet, By Mouth, 4 times a day, PRN, stay hydrated, # 120 tablet, Refills 5, Tot. Refills 5, Maintenance, anxiety, panic, withdrawal symptoms, 09/18/23 10:13:00 EDT, Route to Pharmacy Electronically, [facility] #[id number], Partial... Start Date: 09/18/23 Stop Date: 03/16/24 Status: Ordered duloxetine 30 mg oral enteric coated capsule 1 capsule = 30 mg, By Mouth, 2 times a day, do not crush or chew, # 180 capsule, 3 Refills, Maintenance, 12/20/22 17:50:00 EDT, [facility] #[id number], 170, cm, 12/06/22 0:43:00 EDT, Height, 94.4, kg, 11/08/22 14:35:00 EDT, Dry Weight Start Date: 12/20/22 Status: Ordered gabapentin 300 mg oral capsule 300 mg, 1, capsule, By Mouth, 3 times a day, # 270 capsule, Refills 1, Tot. Refills 1, Maintenance,08/11/23 9:29:00 EDT, Route to Pharmacy Electronically, [facility] #[id number], Partial fill upon patient request, 170, cm, 07/23/23 16:32:00 EDT,... Start Date: 08/11/23 Status: Ordered hydroxychloroquine 200 mg oral tablet 1, tablet, By Mouth, 2 times a day, # 60 tablet, Refills 5, Tot. Refills 5, 04/15/23 13:55:00 EST, Route to Pharmacy Electronically, [facility] #[id number], 170, cm, 01/31/23 10:06:00 EDT, Height, 94.4, kg, 11/08/22 14:35:00 EDT, Dry Weight Start Date: 04/15/23 Status: Ordered hydrOXYzine hydrochloride 25 mg oral tablet See Instructions, TAKE 1 TABLET BY MOUTH TWICE DAILY NEEDED FOR ANXIETY, # 60 tablet, 5 Refills,Maintenance, 09/18/23 10:13:00 EDT, [facility] #[id number], 170, cm, 07/23/23 16:32:00 EDT, Height, 100, [...] 08/11/23 9:29:00 EDT, Route to Pharmacy Electronically, [facility] #[id number], 170, cm, 07/23/23 16:32:00 EDT, Height, 100, kg, 04/20/23 21:48:00 EST, Dry Weight Start Date: 08/11/23 Stop Date: 02/07/24 Status: Ordered Suboxone 8 mg-2 mg Sublingual Film 1 film, Sublingual, 3 times a day, dissolve under the tongue, # 90 film, 1 Refills, Maintenance, 09/12/23 9:01:00 EDT, [facility] #[id number], Partial fill upon patient request if the prescription is for a schedule II opioid drug. [facility] [id number];... Start Date: 09/12/23 Stop Date: 11/11/23 Status: Ordered tiZANidine 2 mg oral tablet 2 mg, 1, tablet, By Mouth, 3 times a day, # 84 tablet, Refills 1, Tot. Refills 1, Maintenance, 09/08/23 18:10:00 EDT, Route to Pharmacy Electronically, [facility] #[id number], Partial fill upon patient request if the prescription is for a schedul... Start Date: 09/08/23 Stop Date: 11/03/23 Status: Ordered Trelegy Ellipta 200 mcg-62.5 mcg-25 mcg/inh inhalation powder 1 puffs, Inhalation, Daily, at the same time every day, # 3 each, 3 Refills, Maintenance, 07/23/23 16:56:00 EDT, Powder, [facility] #[id number], Partial fill upon patient request if the prescription is for a schedule II opioid drug., 1 puffs Inha... Start Date: 07/23/23 Stop Date: 07/17/24 Status: Ordered Ultram 50 mg oral tablet 1 tablet = 50 mg, By Mouth, Every 12 hours, PRN for pain, # 20 tablet, 0 Refills, Maintenance, 10/14/23 9:32:00 EDT, Tablet, [facility] #[id number], Partial fill upon patient request if the prescription is for a schedule II opioid drug., 170, cm,... Start Date: 10/14/23 Status: Ordered Ventolin HFA 108 mcg/inh inhalation aerosol with adapter 2 puffs, Inhalation, 4 times a day, PRN for wheezing, # 1 each, 3 Refills, Maintenance, 05/28/23 12:34:00 EST, Aerosol, [facility] #[id number], Partial fill upon patient request if the prescription is for a schedule II opioid drug., 170, cm, 04/04... Start Date: 05/28/23 Status: Ordered Voltaren Arthritis Pain 1% topical gel = 4 Gm, Topically, 4 times a day, # 480 Gm, 4 Refills, Maintenance, 07/24/23 14:31:00 EDT, [facility] #[id number], Partial fill upon patient request if the [...] Team Personnel Name: Compa Diane NP Position: [facility] PCO Associate Professional Member Role: PCP Address: Address: [address] [place] [address] [place] [address]- Name: Blaire Iglesias [place] Position: [facility] Office Staff Member Role: Primary Care Nurse Name: Rhiannon Li [place] Position: [facility] Amb Office Staff Member Role: Primary Care Nurse Name: Viral Jolly MD Position: [facility] Physician - Behavioral Health Member Role: Lifetime Consulting Physician Address: Address: [address] [place] [address]- Care Team Related Persons Name: MAIN MOSER Address: home [address] [place] [address] Name: JORGE GARCIA Address: [address] [place] [address] Name: LOREE SIFUENTES
--- OUTSIDE RECORDS SUMMARY | 2024-03-03 23:37 | XMS_ITS | Continuity of Care Document ---
Author Organization [facility] Address [address] [place] [address]- Care Team Providers Care Coal Yard Supervisor Name Role Phone Robyn Miller NP Primary Care Physician Encounter [facility] Date(s): 08/26/19 - 12/22/19 [facility] [address] [address]- [facility] Attending Physician: Carleen Frost MD Admitting Physician: [...]
--- OUTSIDE RECORDS SUMMARY | 2024-03-03 23:37 | XMS_ITS | Continuity of Care Document ---
Author Organization [facility] [place] Address [address] [place] [address]- Care Team Providers Care Aquarium Tank Attendant Name Role Phone Fine STEPHANIE, Compa Hall Primary Care Physician ( [phone] Encounter [facility] Date(s): 08/25/23 - 09/24/23 [facility] [place] [address] [place] [address]- Allergies, Adverse Reactions, Alerts No Known Allergies [...] 11 Refills, Maintenance, 03/25/23 12:53:00 EST, Solution, [facility] #[id number], 3 mL Inhalation 4 times a da... Start Date: 03/25/23 Status: Ordered Breo Ellipta 100 mcg-25 mcg/inh inhalation powder 1 puffs, Inhalation, Daily, RINSE MOUTH AFTERWARDS., # 1 each, 3 Refills, 11/21/22 10:33:00 EDT, [facility] #[id number], 1 puffs Inhalation Daily,Instr:RINSE MOUTH AFTERWARDS., 170, cm, 11/19/2313:19:00 EDT, Height, 94.4, kg, 11/08/22 14:35:00 E... Start Date: 11/21/22 Status: Ordered cloNIDine 0.1 mg oral tablet 0.05 mg, 0.5, tablet, By Mouth, 4 times a day, PRN, stay hydrated, # 120 tablet, Refills 5, Tot. Refills 5, Maintenance, anxiety, panic, withdrawal symptoms, 09/18/23 10:13:00 EDT, Route to Pharmacy Electronically, [facility] #[id number], Partial... Start Date: 09/18/23 Stop Date: 03/16/24 Status: Ordered duloxetine 30 mg oral enteric coated capsule 1 capsule = 30 mg, By Mouth, 2 times a day, do not crush or chew, # 180 capsule, 3 Refills, Maintenance, 12/20/22 17:50:00 EDT, [facility] #[id number], 170, cm, 12/06/22 0:43:00 EDT, Height, 94.4, kg, 11/08/22 14:35:00 EDT, Dry Weight Start Date: 12/20/22 Status: Ordered gabapentin 300 mg oral capsule 300 mg, 1, capsule, By Mouth, 3 times a day, # 270 capsule, Refills 1, Tot. Refills 1, Maintenance,08/11/23 9:29:00 EDT, Route to Pharmacy Electronically, [facility] #[id number], Partial fill upon patient request, 170, cm, 07/23/23 16:32:00 EDT,... Start Date: 08/11/23 Status: Ordered hydroxychloroquine 200 mg oral tablet 1, tablet, By Mouth, 2 times a day, # 60 tablet, Refills 5, Tot. Refills 5, 04/15/23 13:55:00 EST, Route to Pharmacy Electronically, [facility] #[id number], 170, cm, 01/31/23 10:06:00 EDT, Height, 94.4, kg, 11/08/22 14:35:00 EDT, Dry Weight Start Date: 04/15/23 Status: Ordered hydrOXYzine hydrochloride 25 mg oral tablet See Instructions, TAKE 1 TABLET BY MOUTH TWICE DAILY NEEDED FOR ANXIETY, # 60 tablet, 5 Refills,Maintenance, 09/18/23 10:13:00 EDT, [facility] #[id number], 170, cm, 07/23/23 16:32:00 EDT, Height, 100, [...] 08/11/23 9:29:00 EDT, Route to Pharmacy Electronically, [facility] #[id number], 170, cm, 07/23/23 16:32:00 EDT, Height, 100, kg, 04/20/23 21:48:00 EST, Dry Weight Start Date: 08/11/23 Stop Date: 02/07/24 Status: Ordered Suboxone 8 mg-2 mg Sublingual Film 1 film, Sublingual, 3 times a day, dissolve under the tongue, # 90 film, 1 Refills, Maintenance, 09/12/23 9:01:00 EDT, [facility] #[id number], Partial fill upon patient request if the prescription is for a schedule II opioid drug. ALVINA [id number];... Start Date: 09/12/23 Stop Date: 11/11/23 Status: Ordered tiZANidine 2 mg oral tablet 2 mg, 1, tablet, By Mouth, 3 times a day, # 84 tablet, Refills 1, Tot. Refills 1, Maintenance, 09/08/23 18:10:00 EDT, Route to Pharmacy Electronically, [facility] #[id number], Partial fill upon patient request if the prescription is for a schedul... Start Date: 09/08/23 Stop Date: 11/03/23 Status: Ordered Trelegy Ellipta 200 mcg-62.5 mcg-25 mcg/inh inhalation powder 1 puffs, Inhalation, Daily, at the same time every day, # 3 each, 3 Refills, Maintenance, 07/23/23 16:56:00 EDT, Powder, [facility] #[id number], Partial fill upon patient request if the prescription is for a schedule II opioid drug., 1 puffs Inha... Start Date: 07/23/23 Stop Date: 07/17/24 Status: Ordered Ventolin HFA 108 mcg/inh inhalation aerosol with adapter 2 puffs, Inhalation, 4 times a day, PRN for wheezing, # 1 each, 3 Refills, Maintenance, 05/28/23 12:34:00 EST, Aerosol, [facility] #[id number], Partial fill upon patient request if the prescription is for a schedule II opioid drug., 170, cm, 04/04... Start Date: 05/28/23 Status: Ordered Voltaren Arthritis Pain 1% topical gel = 4 Gm, Topically, 4 times a day, # 480 Gm, 4 Refills, Maintenance, 07/24/23 14:31:00 EDT, [facility] #21357, Partial fill upon patient request if the [...] Team Personnel Name: Compa Diane NP Position: [facility] PCO Associate Professional Member Role: PCP Address: Address: [address] [place] [address] [place] [address]- Name: Blaire Iglesias [place] Position: [facility] Office Staff Member Role: Primary Care Nurse Name: Rhiannon Li [place] Position: [facility] Office Staff Member Role: Primary Care Nurse Name: Viral Jolly MD Position: [facility] Physician - Behavioral Health Member Role: Lifetime Consulting Physician Address: Address: [address] [place] [id number]- Care Team Related Persons Name: MAIN MOSER Address: home [address] [place] [address] Name: JORGE GARCIA Address: home [address] [place] [address] Name: LOREE SIFUENTES
--- OUTSIDE RECORDS SUMMARY | 2024-03-03 23:37 | XMS_ITS | Continuity of Care Document ---
Author Organization [facility] [place] Address [address] [place] [address]- Care Team Providers Care Nutrition Services Assistant Name Role Phone Fine FIBERGLASS FABRICATOR, Compa Hall Primary Care Physician Encounter [facility] Date(s): 01/20/24 - 02/19/24 [facility] [place] [address] [place] [address]- Allergies, Adverse Reactions, Alerts No Known Allergies [...] 11 Refills, Maintenance, 03/25/23 12:53:00 EST, Solution, [facility] #[id number], 3 mL Inhalation 4 times a da... Start Date: 03/25/23 Status: Ordered Breo Ellipta 100 mcg-25 mcg/inh inhalation powder 1 puffs, Inhalation, Daily, RINSE MOUTH AFTERWARDS., # 1 each, 3 Refills, 11/21/22 10:33:00 EDT, [facility] #47012, 1 puffs Inhalation Daily,Instr:RINSE MOUTH AFTERWARDS., 170, cm, 11/19/2313:19:00 EDT, Height, 94.4, kg, 11/08/22 14:35:00 E... Start Date: 11/21/22 Status: Ordered calcium (as citrate)-vitamin D 315 mg-250 intl units oral tablet 2 tablet, By Mouth, 2 times a day, # 120 tablet, 11 Refills, Maintenance, 10/27/23 11:47:00 EDT, Tablet, [facility] #[id number], Partial fill upon patient request if the [...] 02/09/24 16:21:00 EDT, Route to Pharmacy Electronically, [facility] #[id number], Partial... Start Date: 02/09/24 Stop Date: 08/07/24 Status: Ordered duloxetine 30 mg oral enteric coated capsule 1 capsule = 30 mg, By Mouth, 2 times a day, do not crush or chew, # 180 capsule, 3 Refills, Maintenance, 12/15/23 12:15:00 EDT, [facility] #[id number], 170, cm, 11/26/23 7:18:00 EDT, Height, 100, kg, 10/09/23 2:02:00 EDT, Dry Weight Start Date: 12/15/23 Status: Ordered duloxetine 30 mg oral enteric coated capsule 1 capsule = 30 mg, By Mouth, 2 times a day, do not crush or chew, # 180 capsule, 3 Refills, Maintenance, 12/20/22 17:50:00 EDT, [facility] #[id number], 170, cm, 12/06/22 0:43:00 EDT, Height, 94.4, kg, 11/08/22 14:35:00 EDT, Dry Weight Start Date: 12/20/22 Status: Ordered fluconazole 150 mg oral tablet 1 tablet = 150 mg, By Mouth, Once, For treatment of Yeast infection, repeat dose if still having symptoms in 72 hours, # 2 tablet, 0 Refills, Soft Stop, 12/19/23 10:58:00 EDT, Tablet, [facility] #[id number], Partial fill upon patient request if t... Start Date: 12/19/23 Status: Ordered gabapentin 300 mg oral capsule 300 mg, 1, capsule, By Mouth, 3 times a day, # 270 capsule, Refills 1, Tot. Refills 1, Maintenance,12/15/23 12:15:00 EDT, Route to Pharmacy Electronically, [facility] #[id number], Partial fill upon patient request, 170, cm, 11/26/23 7:18:00 EDT,... Start Date: 12/15/23 Status: Ordered gabapentin 300 mg oral capsule 300 mg, 1, capsule, By Mouth, 3 times a day, # 270 capsule, Refills 1, Tot. Refills 1, Maintenance,08/11/23 9:29:00 EDT, Route to Pharmacy Electronically, [facility] #[id number], Partial fill upon patient request, 170, cm, 07/23/23 16:32:00 EDT,... Start Date: 08/11/23 Status: Ordered hydroxychloroquine 200 mg oral tablet 1, tablet, By Mouth, 2 times a day, # 60 tablet, Refills 5, Tot. Refills 5, 12/25/23 9:59:00 EDT, Route to Pharmacy Electronically, [facility] #61006, 170, cm, 12/19/23 10:38:00 EDT, Height, 100, kg, 10/09/23 2:02:00 EDT, Dry Weight Start Date: 12/25/23 Status: Ordered hydrOXYzine hydrochloride 25 mg oral tablet See Instructions, TAKE 1 TABLET BY MOUTH TWICE DAILY NEEDED FOR ANXIETY, # 60 tablet, 5 Refills,Maintenance, 02/09/24 16:21:00 EDT, [facility] #[id number], 170, cm, 02/02/24 10:19:00 EDT, Height, 100, kg, 10/09/23 2:02:00 EDT, Dry Weight Start Date: 02/09/24 Status: Ordered NEBULIZER MACHINE AND TUBING NEBULIZER MACHINE AND TUBING, See Instructions, PRN Wheezing/Shortness of Breath, # 1 each, Refills0, Tot. Refills 0, Maintenance, USE NEEDED FOR WHEEZING DX:, 06/17/23 15:49:00 EST, Supply Start Date: 06/17/23 Status: Ordered NuLYTELY [place] oral powder for reconstitution 240 mL, By Mouth, Every 10 minutes, # 1 each, 0 Refills, Maintenance, 12/03/23 9:52:00 EDT, REC Powder, [facility] #[id number], Partial fill upon patient request if the prescription is for a schedule II opioid drug., 170, cm, 11/26/23 7:18:00 EDT... Start Date: 12/03/23 Status: Ordered oxyCODONE 5 mg oral tablet 5 mg, 1, tablet, By Mouth, Every 6 hours, PRN, # 5 tablet, Refills 0, Tot. Refills 0, Acute 02/20/24 14:27:00 EDT, as needed for pain, 02/18/24 14:27:00 EDT, Route to Pharmacy Electronically, [facility] #[id number], Partial fill upon patient requ... Start Date: 02/18/24 Stop Date: 02/20/24 Status: Ordered PHENobarbital 30 mg oral tablet 1 tablet = 30 mg, By Mouth, 2 times a day, # 60 tablet, 1 Refills, Maintenance, 12/15/23 12:14:00 EDT, Tablet, [facility] #[id number], IF NOT COVERED, please use goodrx coupon and allow pt to pay OOP; $9.09; BIN [id number]; [facility]; Group [address]; Membe... Start Date: 12/15/23 Status: Ordered PHENobarbital 30 mg oral tablet 1 tablet = 30 mg, By Mouth, 2 times a day, # 60 tablet, 1 Refills, Maintenance, 02/09/24 16:21:00 EDT, Tablet, [facility] #[id number], IF NOT COVERED, please use goodrx coupon and allow pt to pay OOP; $9.09; BIN [id number]; [facility]; [address]; Membe... Start Date: 02/09/24 Status: Ordered risperiDONE 1 mg oral tablet 1 mg, 1, tablet, By Mouth, Daily, # 90 tablet, Refills 1, Tot. Refills 1, Maintenance, 02/09/24 16:21:00 EDT, Route to Pharmacy Electronically, [facility] #[id number], 170, cm, 02/02/24 10:19:00EDT, Height, 100, kg, 10/09/23 2:02:00 EDT, Dry Weight Start Date: 02/09/24 Stop Date: 08/07/24 Status: Ordered Suboxone 8 mg-2 mg Sublingual Film 3 film, Sublingual, Daily, or as directed, # 90 film, 0 Refills, Maintenance, 12/16/23 14:10:00 EDT, [facility] #[id number], Partial fill upon patient request if the prescription is for a schedule II opioid drug. ALVINA [id number], 3 film Sublingual... Start Date: 12/16/23 Stop Date: 01/15/24 Status: Ordered tiZANidine 2 mg oral tablet 2 mg, 1, tablet, By Mouth, 3 times a day, # 84 tablet, Refills 1, Tot. Refills 1, Maintenance, 12/26/23 9:21:00 EDT, Route to Pharmacy Electronically, [facility] #[id number], Partial fill upon patient request if the prescription is for a schedule... Start Date: 12/26/23 Stop Date: 02/20/24 Status: Ordered Trelegy Ellipta 200 mcg-62.5 mcg-25 mcg/inh inhalation powder 1 puffs, Inhalation, Daily, at the same time every day, # 3 each, 3 Refills, Maintenance, 07/23/23 16:56:00 EDT, Powder, [facility] #[id number], Partial fill upon patient request if the prescription is for a schedule II opioid drug., 1 puffs Inha... Start Date: 07/23/23 Stop Date: 07/17/24 Status: Ordered Ultram 50 mg oral tablet 1 tablet = 50 mg, By Mouth, Every 12 hours, PRN for pain, # 20 tablet, 0 Refills, Maintenance, 10/14/23 9:32:00 EDT, Tablet, [facility] #[id number], Partial fill upon patient request if the prescription is for a schedule II opioid drug., 170, cm,... Start Date: 10/14/23 Status: Ordered Ventolin HFA 108 mcg/inh inhalation aerosol with adapter 2 puffs, Inhalation, 4 times a day, PRN for wheezing, # 3 each, 1 Refills, Maintenance, 02/10/24 10:15:00 EDT, Aerosol, [facility] #[id number], Partial fill upon patient request if the prescription is for a schedule II opioid drug., 170, cm, 01/05... Start Date: 02/10/24 Status: Ordered Voltaren Arthritis Pain 1% topical gel = 4 Gm, Topically, 4 times a day, # 480 Gm, 4 Refills, Maintenance, 07/24/23 14:31:00 EDT, [facility] #[id number], Partial fill upon patient request if the [...] Team Personnel Name: Compa Diane NP Position[facility] PCO Associate Professional Member Role: PCP Address: Address: [address] [place] [address] [place] [address]- Name: Blaire Iglesias [place] Position: [facility] Office Staff Member Role: Primary Care Nurse Name: Rhiannon Li [place] Position: [facility] Office Staff Member Role: Primary Care Nurse Name: Viral Jolly MD Position: [facility] Physician - Behavioral Health Member Role: Lifetime Consulting Physician Address: Address: [address] [place] [address]- Care Team Related Persons Name: MAIN MOSER Address: home [address] [place] [address] Name: JORGE GARCIA Address: home [address] [place] [address] Name: LOREE SIFUENTES
--- OUTSIDE RECORDS SUMMARY | 2024-03-03 23:38 | XMS_ITS | Continuity of Care Document ---
Author Organization [facility] Address [address] [place] [address]- Care Team Providers Care Billiard Parlor Manager Name Role Phone Angela BROWN, Robyn Martinez Primary Care Physician Encounter [facility] Date(s): 06/22/20 - 06/22/20 [facility] [address] [place] [address]- Discharge Disposition: A-D/C Home Attending Physician: John Mckeon MD Admitting Physician: John Mckeon MD Referring Physician: Not on Staff, Referring [...] Refills, Maintenance, 06/19/20 16:07:00 EST, [id number], 20, INHALE 2 PUFFS BY MOUTH EVERY 4 TO 6 HOURS NEEDED FOR WHEEZE FOR SHORTNESS... Start Date: 06/19/20 Status: Ordered Suboxone 8 mg-2 mg sublingual film 2.5 FILMS, Sublingual, Daily, [id number], # 75 film, 1 Refills, Maintenance, 04/26/20 16:38:00 EST, [facility] #[id number], 2.5 FILMS Sublingual Daily,Instr:[id number], 163, cm, 04/26/20 14:26:00 EST, Height, 105, [...] Range]: 1 2 3 Height 170 cm (06/22/20 1:29 PM) 170 cm (06/22/20 12:05 PM) Weight 107.3 kg (06/22/20 1:29 PM) 107.3 kg (06/22/20 12:05 PM) 107.3 kg (06/22/20 12:04 PM) Oxygen Saturation [94-100 %] 99 % (06/22/20 1:29 PM) 98 % (06/22/20 12:05 PM) Pulse Rate [55-90 bpm] 88 bpm (06/22/20 1:29 PM) 104 bpm *H* (06/22/20 12:05 PM) Blood Pressure [90-138/55-84 mm Hg] 123/77mm Hg (06/22/20 1:29 PM) 126/63mm Hg (06/22/20 12:05 PM) Respiratory Rate [16-30 br/min] 20 br/min (06/22/20 1:29 PM) 18 br/min (06/22/20 12:05 PM) Temperature [96.8-100.4 DegF] 98.2 DegF (06/22/20 1:29 PM) 96.6 DegF *L* (06/22/20 12:05 PM) Mode of Delivery (Oxygen) Room air (06/22/20 1:29 PM) Room air (06/22/20 12:05 PM) Blood pressure sites Arm, left (06/22/20 12:05 PM) Temperature Route Oral (06/22/20 1:29 PM) Temporal (06/22/20 12:05 PM) Dry Weight 107.3 kg (06/22/20 1:29 PM) 107.3 kg (06/22/20 12:05 PM) 107.3 kg (06/22/20 12:04 PM) Weight Obtained Via Standing scale (06/22/20 12:04 PM) Dry Weight Obtained Via Standing scale (06/22/20 12:04 PM) Social History Social History Type Response Smoking Status Current every day antony gomez entered on: 09/29/14 Sex
--- OUTSIDE RECORDS SUMMARY | 2024-03-03 23:38 | XMS_ITS | Continuity of Care Document ---
Author Organization [facility] Address [address] [place] [address]- Care Team Providers Care Supervisor Looping Name Role Phone Angela BROWN, Robyn Martinez Primary Care Physician Encounter [facility] Date(s): 11/17/19 - 12/17/19 [facility] [address] [place] [address]- [facility] Allergies, Adverse Reactions, Alerts Substance [...]
--- OUTSIDE RECORDS SUMMARY | 2024-03-03 23:38 | XMS_ITS | Continuity of Care Document ---
Author Organization [facility] Address [address] [place] [address]- Care Team Providers Care Passementerie Worker Name Role Phone Fine EXCEL DEVELOPER, Compa Hall Primary Care Physician Encounter [facility] Date(s): 04/08/23 - 05/08/23 [facility] [address] [place] [address]- Allergies, Adverse Reactions, Alerts No Known Allergies Immunizations Given and Recorded Vaccine Date Status Refusal Reason SARS-CoV-2 (COVID-19) mRNA BNT-162b2 vac 09/08/20 Recorded SARS-CoV-2 (COVID-19) mRNA BNT-162t2 vac 08/18/20 Recorded pneumococcal 23-valent vaccine 10/21/16 Given tetanus-diphtheria toxoids (Td) 05/05/03 Recorded Medications albuterol-ipratropium 3 mg-0.5 mg/3 ml inhalation solution 3 mL, Inhalation, 4 times a day, PRN Wheezing/Shortness of Breath, DX: J45.909 do not use ventolineand Nebs at the same time, # 90 mL, 11 Refills, Maintenance, 03/25/23 12:53:00 EST, Solution, [facility] #[id number], 3 mL Inhalation 4 times a da... Start Date: 03/25/23 Status: Ordered Breo Ellipta 100 mcg-25 mcg/inh inhalation powder 1 puffs, Inhalation, Daily, RINSE MOUTH AFTERWARDS., # 1 each, 3 Refills, 11/21/22 10:33:00 EDT, [facility] #[id number], 1 puffs Inhalation Daily,Instr:RINSE MOUTH AFTERWARDS., 170, cm, 11/19/2313:19:00 EDT, Height, 94.4, kg, 11/08/22 14:35:00 E... Start Date: 11/21/22 Status: Ordered cloNIDine 0.1 mg oral tablet 0.05 mg, 0.5, tablet, By Mouth, 4 times a day, PRN, stay hydrated, # 60 tablet, Refills 3, Tot. Refills 3, Maintenance, anxiety, panic, withdrawal symptoms, 03/25/23 12:52:00 EST, Route to Pharmacy Electronically, [facility] #[id number], Partial... Start Date: 03/25/23 Status: Ordered duloxetine 30 mg oral enteric coated capsule 1 capsule = 30 mg, By Mouth, 2 times a day, do not crush or chew, # 180 capsule, 3 Refills, Maintenance, 12/20/22 17:50:00 EDT, [facility] #[id number], 170, cm, 12/06/22 0:43:00 EDT, Height, 94.4, kg, 11/08/22 14:35:00 EDT, Dry Weight Start Date: 12/20/22 Status: Ordered gabapentin 300 mg oral capsule 300 mg, 1, capsule, By Mouth, 3 times a day, # 270 capsule, Refills 1, Tot. Refills 1, Maintenance,02/12/23 10:36:00 EDT, Route to Pharmacy Electronically, [facility] #[id number], Partial fill upon patient request, 170, cm, 01/31/23 10:06:00 EDT... Start Date: 02/12/23 Status: Ordered hydroxychloroquine 200 mg oral tablet 1, tablet, By Mouth, 2 times a day, # 60 tablet, Refills 5, Tot. Refills 5, 04/15/23 13:55:00 EST, Route to Pharmacy Electronically, [facility] #[id number], 170, cm, 01/31/23 10:06:00 EDT, Height, 94.4, kg, 11/08/22 14:35:00 EDT, Dry Weight Start Date: 04/15/23 Status: Ordered hydrOXYzine hydrochloride 25 mg oral tablet 1 tablet = 25 mg, By Mouth, Daily, PRN anxiety, for 30 days, # 30 tablet, 3 Refills, Acute 07/23/2411:53:00 EDT, 03/25/23 12:53:00 EST, Tablet, [facility] #[id number], Partial fill upon patientrequest if the prescription is for a schedule II op... Start Date: 03/25/23 Stop Date: 07/23/23 Status: Ordered risperiDONE 1 mg oral tablet 1 mg, 1, tablet, By Mouth, Daily, # 90 tablet, Refills 1, Tot. Refills 1, Maintenance, 02/12/23 10:37:00 EDT, Route to Pharmacy Electronically, [facility] #[id number], 170, cm, 01/31/23 10:06:00EDT, Height, 94.4, kg, 11/08/22 14:35:00 EDT, Dry W... Start Date: 02/12/23 Stop Date: 08/11/23 Status: Ordered Suboxone 8 mg-2 mg Sublingual Film 1 film, Sublingual, 3 times a day, dissolve under the tongue, # 90 film, 1 Refills, Maintenance, 03/14/23 10:32:00 EST, [facility] #[id number], Partial fill upon patient request if the prescription is for a schedule II opioid drug. ALVINA [id number];... Start Date: 03/14/23 Stop Date: 05/13/23 Status: Ordered tiZANidine 2 mg oral tablet 2 mg, 1, tablet, By Mouth, 3 times a day, # 21 tablet, Refills 0, Tot. Refills 0, Maintenance, 04/22/23 9:05:00 EST, Route to Pharmacy Electronically, [facility] #[id number], Partial fill upon patient request if the prescription is for a schedule... Start Date: 04/22/23 Stop Date: 04/29/23 Status: Ordered Ventolin HFA 108 mcg/inh inhalation aerosol with adapter 2 puffs, Inhalation, 4 times a day, PRN for wheezing, # 18 Gm, 0 Refills, Maintenance, 04/17/23 15:20:00 EST, Aerosol, [facility] #[id number], Partial fill upon patient request if the prescription is for a schedule II opioid drug., 170, cm, 04/17... Start Date: 04/17/23 Status: Ordered Voltaren Arthritis Pain 1% topical gel = 4 Gm, Topically, 4 times a day, # 480 Gm, 4 Refills, Maintenance, 04/10/23 11:37:00 EST, [facility] #[id number], Partial fill upon patient request if the prescription is for a schedule II opioid drug., 4 Gm Topically 4 times a day, 170, cm, ... Start Date: 04/10/23 Status: Ordered [facility] PAIN RELIEVING LIDOCAINE PATCH 4% [email or web address] PAIN RELIEVING LIDOCAINE PATCH 4%, See Instructions, [...] Team Personnel Name: Compa Diane NP Position: [facility] PCO Associate Professional Member Role: PCP Address: Address: [address] [facility] [place] [address]- [place] Name: Blaire Iglesias [place] Position: [facility] RN Member Role: Primary Care Nurse Name: Rhiannon Gibson Position: [facility] RN Member Role: Primary Care Nurse Name: Viral Jolly MD Position: [facility] Physician - Behavioral Health Member Role: Lifetime Consulting Physician Address: Address: [address] [place] [address]- Care Team Related Persons Name: MAIN MOSER Address: home [address] [place] [address] Name: JORGE GARCIA Address: [address] [place] [address] Name: LOREE SIFUENTES
--- OUTSIDE RECORDS SUMMARY | 2024-03-03 23:38 | XMS_ITS | Continuity of Care Document ---
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, Compa Hall Primary Care Physician Encounter [facility] Date(s): 07/21/23 - 08/20/23 [facility] [address] [place] [address]- Allergies, Adverse Reactions, Alerts No Known Allergies Immunizations Given and Recorded Vaccine Date Status Refusal Reason SARS-CoV-2 (COVID-19) mRNA BNT-162b2 vac 09/08/20 Recorded SARS-CoV-2 (COVID-19) mRNA BNT-162p2 vac 08/18/20 Recorded pneumococcal 23-valent vaccine 10/21/16 Given tetanus-diphtheria toxoids (Td) 05/05/03 Recorded Medications albuterol-ipratropium 3 mg-0.5 mg/3 ml inhalation solution 3 mL, Inhalation, 4 times a day, PRN Wheezing/Shortness of Breath, DX: J45.909 do not use ventolineand Nebs at the same time, # 90 mL, 11 Refills, Maintenance, 03/25/23 12:53:00 EST, Solution, [facility] #[id number], 3 mL Inhalation 4 times a da... Start Date: 03/25/23 Status: Ordered Breo Ellipta 100 mcg-25 mcg/inh inhalation powder 1 puffs, Inhalation, Daily, RINSE MOUTH AFTERWARDS., # 1 each, 3 Refills, 11/21/22 10:33:00 EDT, [facility] #[id number], 1 puffs Inhalation Daily,Instr:RINSE MOUTH AFTERWARDS., 170, cm, 11/19/2313:19:00 EDT, Height, 94.4, kg, 11/08/22 14:35:00 E... Start Date: 11/21/22 Status: Ordered cloNIDine 0.1 mg oral tablet 0.05 mg, 0.5, tablet, By Mouth, 4 times a day, PRN, stay hydrated, # 120 tablet, Refills 0, Tot. Refills 0, Maintenance, anxiety, panic, withdrawal symptoms, 08/11/23 9:29:00 EDT, Route to Pharmacy Electronically, [facility] #[id number], Partial... Start Date: 08/11/23 Stop Date: 09/10/23 Status: Ordered duloxetine 30 mg oral enteric coated capsule 1 capsule = 30 mg, By Mouth, 2 times a day, do not crush or chew, # 180 capsule, 3 Refills, Maintenance, 12/20/22 17:50:00 EDT, [facility] #[id number], 170, cm, 12/06/22 0:43:00 EDT, Height, 94.4, kg, 11/08/22 14:35:00 EDT, Dry Weight Start Date: 12/20/22 Status: Ordered gabapentin 300 mg oral capsule 300 mg, 1, capsule, By Mouth, 3 times a day, # 270 capsule, Refills 1, Tot. Refills 1, Maintenance,08/11/23 9:29:00 EDT, Route to Pharmacy Electronically, [facility] #[id number], Partial fill upon patient request, 170, cm, 07/23/23 16:32:00 EDT,... Start Date: 08/11/23 Status: Ordered hydroxychloroquine 200 mg oral tablet 1, tablet, By Mouth, 2 times a day, # 60 tablet, Refills 5, Tot. Refills 5, 04/15/23 13:55:00 EST, Route to Pharmacy Electronically, [facility] #[id number], 170, cm, 01/31/23 10:06:00 EDT, Height, 94.4, kg, 11/08/22 14:35:00 EDT, Dry Weight Start Date: 04/15/23 Status: Ordered hydrOXYzine hydrochloride 25 mg oral tablet 1 tablet = 25 mg, By Mouth, 2 times a day, PRN for anxiety, for 30 days, # 60 tablet, 0 Refills, Acute 09/10/23 9:30:00 EDT, 08/11/23 9:30:00 EDT, Tablet, [facility] #[id number], Partial fill upon patient request if the [...] 1 Refills, Maintenance, 08/11/23 9:31:00 EDT, Tablet, [facility] #[id number], IF NOT COVERED, please use iConnectivity coupon and allow pt to payOOP; $9.09; ASHLEY [id number]; [facility] [place]; Group [address]; Member... Start Date: 08/11/23 Status: Ordered risperiDONE 1 mg oral tablet 1 mg, 1, tablet, By Mouth, Daily, # 90 tablet, Refills 1, Tot. Refills 1, Maintenance, 08/11/23 9:29:00 EDT, Route to Pharmacy Electronically, [facility] #[id number], 170, cm, 07/23/23 16:32:00 EDT, Height, 100, kg, 04/20/23 21:48:00 EST, Dry Weight Start Date: 08/11/23 Stop Date: 02/07/24 Status: Ordered Suboxone 8 mg-2 mg Sublingual Film 1 film, Sublingual, 3 times a day, dissolve under the tongue, # 90 film, 1 Refills, Maintenance, 07/13/23 11:49:00 EDT, [facility] #[id number], Partial fill upon patient request if the prescription is for a schedule II opioid drug. ALVINA [id number];... Start Date: 07/13/23 Stop Date: 09/11/23 Status: Ordered tiZANidine 2 mg oral tablet 2 mg, 1, tablet, By Mouth, 3 times a day, # 84 tablet, Refills 1, Tot. Refills 1, Maintenance, 07/01/23 16:53:00 EST, Route to Pharmacy Electronically, [facility] #[id number], Partial fill upon patient request if the prescription is for a schedul... Start Date: 07/01/23 Stop Date: 08/26/23 Status: Ordered Trelegy Ellipta 200 mcg-62.5 mcg-25 mcg/inh inhalation powder 1 puffs, Inhalation, Daily, at the same time every day, # 3 each, 3 Refills, Maintenance, 07/23/23 16:56:00 EDT, Powder, [facility] #[id number], Partial fill upon patient request if the prescription is for a schedule II opioid drug., 1 puffs Inha... Start Date: 07/23/23 Stop Date: 07/17/24 Status: Ordered Ventolin HFA 108 mcg/inh inhalation aerosol with adapter 2 puffs, Inhalation, 4 times a day, PRN for wheezing, # 1 each, 3 Refills, Maintenance, 05/28/23 12:34:00 EST, Aerosol, [facility] #[id number], Partial fill upon patient request if the prescription is for a schedule II opioid drug., 170, cm, 04/04... Start Date: 05/28/23 Status: Ordered Voltaren Arthritis Pain 1% topical gel = 4 Gm, Topically, 4 times a day, # 480 Gm, 4 Refills, Maintenance, 07/24/23 14:31:00 EDT, [facility] #[id number], Partial fill upon patient request if the [...] Team Personnel Name: Compa Diane NP Position: [facility] PCO Associate Professional Member Role: PCP Address: Address: [address] [facility] [place] [address]- Name: Blaire Iglesias [place] Position: [facility] RN Member Role: Primary Care Nurse Name: Rhiannon Gibson Position: [facility] RN Member Role: Primary Care Nurse Name: Viral Jolly MD Position: [facility] Physician - Behavioral Health Member Role: Lifetime Consulting Physician Address: Address: [address] [place] [address]- Care Team Related Persons Name: MAIN MOSER Address: home [address] [place] [address] Name: JORGE GARCIA Address: home [address] [place] [address] Name: LOREE SIFUENTES
--- OUTSIDE RECORDS SUMMARY | 2024-03-03 23:38 | XMS_ITS | Continuity of Care Document ---
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 Date(s): 05/11/20 - 09/08/20 [facility] [address] [place] [address]- Attending Physician: Eder Conrad MD Allergies, Adverse [...] Unknown, 11 Refills, Maintenance, 06/19/20 16:07:00 EST, [id number], 20, INHALE 2 PUFFS BY MOUTH EVERY 4 TO 6 HOURS NEEDED FOR WHEEZE FOR SHORTNESS... Start Date: 06/19/20 Status: Ordered Suboxone 8 mg-2 mg sublingual film 2.5 FILMS, Sublingual, Daily, [id number], # 75 film, 1 Refills, Maintenance, 04/26/20 16:38:00 EST, [facility] #[id number], 2.5 FILMS Sublingual Daily,Instr:[id number], 163, cm, 04/26/20 14:26:00 EST, Height, 105, [...] Type Response Smoking Status Current every day antnoy gomez entered on: 09/29/14 Sex
--- OUTSIDE RECORDS SUMMARY | 2024-03-03 23:38 | XMS_ITS | Continuity of Care Document ---
[facility] Address [address] [place] [address]- Care Team Providers Care Pet House Sitter Name Role Phone Fine SHAREPOINT ARCHITECT, Compa Hall Primary Care Physician Encounter [facility] Date(s): 11/24/23 - 12/24/23 [facility] [address] [place] [address]- Allergies, Adverse Reactions, Alerts No Known Allergies Immunizations Given and Recorded Vaccine Date Status Refusal Reason SARS-CoV-2 (COVID-19) mRNA BNT-162b2 vac 09/08/20 Recorded SARS-CoV-2 (COVID-19) mRNA BNT-162o7 vac 08/18/20 Recorded pneumococcal 23-valent vaccine 10/21/16 Given tetanus-diphtheria toxoids (Td) 05/05/03 Recorded Medications albuterol-ipratropium 3 mg-0.5 mg/3 ml inhalation solution 3 mL, Inhalation, 4 times a day, PRN Wheezing/Shortness of Breath, DX: J45.909 do not use ventolineand Nebs at the same time, # 90 mL, 11 Refills, Maintenance, 03/25/23 12:53:00 EST, Solution, [facility] #[id number], 3 mL Inhalation 4 times a da... Start Date: 03/25/23 Status: Ordered Breo Ellipta 100 mcg-25 mcg/inh inhalation powder 1 puffs, Inhalation, Daily, RINSE MOUTH AFTERWARDS., # 1 each, 3 Refills, 11/21/22 10:33:00 EDT, [facility] #[id number], 1 puffs Inhalation Daily,Instr:RINSE MOUTH AFTERWARDS., 170, cm, 11/19/2313:19:00 EDT, Height, 94.4, kg, 11/08/22 14:35:00 E... Start Date: 11/21/22 Status: Ordered calcium (as citrate)-vitamin D 315 mg-250 intl units oral tablet 2 tablet, By Mouth, 2 times a day, # 120 tablet, 11 Refills, Maintenance, 10/27/23 11:47:00 EDT, Tablet, [facility] #[id number], Partial fill upon patient request if the prescription is for a schedule II opioid drug., 2 tablet By Mouth 2 times a... Start Date: 10/27/23 Status: Ordered cephalexin monohydrate 500 mg oral tablet 1 tablet = 500 mg, By Mouth, 2 times a day, for 7 days, # 14 tablet, 0 Refills, Acute 12/26/23 10:58:00 EDT, 12/19/23 10:58:00 EDT, Tablet, [facility] #[id number], Partial fill upon patient request if the prescription is for a schedule II opioid... Start Date: 12/19/23 Stop Date: 12/26/23 Status: Ordered cloNIDine 0.1 mg oral tablet 0.05 mg, 0.5, tablet, By Mouth, 4 times a day, PRN, stay hydrated, # 120 tablet, Refills 5, Tot. Refills 5, Maintenance, anxiety, panic, withdrawal symptoms, 09/18/23 10:13:00 EDT, Route to Pharmacy Electronically, [facility] #[id number], Partial... Start Date: 09/18/23 Stop Date: 03/16/24 Status: Ordered duloxetine 30 mg oral enteric coated capsule 1 capsule = 30 mg, By Mouth, 2 times a day, do not crush or chew, # 180 capsule, 3 Refills, Maintenance, 12/15/23 12:15:00 EDT, [facility] #[id number], 170, cm, 11/26/23 7:18:00 EDT, Height, 100, kg, 10/09/23 2:02:00 EDT, Dry Weight Start Date: 12/15/23 Status: Ordered duloxetine 30 mg oral enteric coated capsule 1 capsule = 30 mg, By Mouth, 2 times a day, do not crush or chew, # 180 capsule, 3 Refills, Maintenance, 12/20/22 17:50:00 EDT, [facility] #[id number], 170, cm, 12/06/22 0:43:00 EDT, Height, 94.4, kg, 11/08/22 14:35:00 EDT, Dry Weight Start Date: 12/20/22 Status: Ordered fluconazole 150 mg oral tablet 1 tablet = 150 mg, By Mouth, Once, For treatment of Yeast infection, repeat dose if still having symptoms in 72 hours, # 2 tablet, 0 Refills, Soft Stop, 12/19/23 10:58:00 EDT, Tablet, [facility] #[id number], Partial fill upon patient request if t... Start Date: 12/19/23 Status: Ordered gabapentin 300 mg oral capsule 300 mg, 1, capsule, By Mouth, 3 times a day, # 270 capsule, Refills 1, Tot. Refills 1, Maintenance,12/15/23 12:15:00 EDT, Route to Pharmacy Electronically, [facility] #[id number], Partial fill upon patient request, 170, cm, 11/26/23 7:18:00 EDT,... Start Date: 12/15/23 Status: Ordered gabapentin 300 mg oral capsule 300 mg, 1, capsule, By Mouth, 3 times a day, # 270 capsule, Refills 1, Tot. Refills 1, Maintenance,08/11/23 9:29:00 EDT, Route to Pharmacy Electronically, [facility] #[id number], Partial fill upon patient request, 170, cm, 07/23/23 16:32:00 EDT,... Start Date: 08/11/23 Status: Ordered hydroxychloroquine 200 mg oral tablet 1, tablet, By Mouth, 2 times a day, # 60 tablet, Refills 5, Tot. Refills 5, 04/15/23 13:55:00 EST, Route to Pharmacy Electronically, [facility] #[id number], 170, cm, 01/31/23 10:06:00 EDT, Height, 94.4, kg, 11/08/22 14:35:00 EDT, Dry Weight Start Date: 04/15/23 Status: Ordered hydrOXYzine hydrochloride 25 mg oral tablet See Instructions, TAKE 1 TABLET BY MOUTH TWICE DAILY NEEDED FOR ANXIETY, # 60 tablet, 5 Refills,Maintenance, 09/18/23 10:13:00 EDT, [facility] #[id number], 170, cm, 07/23/23 16:32:00 EDT, Height, 100, kg, 04/20/23 21:48:00 EST, Dry Weight Start Date: 09/18/23 Status: Ordered NEBULIZER MACHINE AND TUBING NEBULIZER MACHINE AND TUBING, See Instructions, PRN Wheezing/Shortness of Breath, # 1 each, Refills0, Tot. Refills 0, Maintenance, USE NEEDED FOR WHEEZING DX:, 06/17/23 15:49:00 EST, Supply Start Date: 06/17/23 Status: Ordered NuLYTELY Lemon [place] oral powder for reconstitution 240 mL, By Mouth, Every 10 minutes, # 1 each, 0 Refills, Maintenance, 12/03/23 9:52:00 EDT, REC Powder, [facility] #[id number], Partial fill upon patient request if the prescription is for a schedule II opioid drug., 170, cm, 11/26/23 7:18:00 EDT... Start Date: 12/03/23 Status: Ordered PHENobarbital 30 mg oral tablet 1 tablet = 30 mg, By Mouth, 2 times a day, # 60 tablet, 1 Refills, Maintenance, 11/20/23 16:42:00 EDT, Tablet, [facility] #[id number], IF NOT COVERED, please use goodrx coupon and allow pt to pay OOP; $9.09; B[place] [id number]; [facility]; Group 33; Membe... Start Date: 11/20/23 Status: Ordered PHENobarbital 30 mg oral tablet 1 tablet = 30 mg, By Mouth, 2 times a day, # 60 tablet, 1 Refills, Maintenance, 12/15/23 12:14:00 EDT, Tablet, [facility] #[id number], IF NOT COVERED, please use goodrx coupon and allow pt to pay OOP; $9.09; BIN [id number]; [facility]; Group [address]; Membe... Start Date: 12/15/23 Status: Ordered risperiDONE 1 mg oral tablet 1 mg, 1, tablet, By Mouth, Daily, # 90 tablet, Refills 1, Tot. Refills 1, Maintenance, 08/11/23 9:29:00 EDT, Route to Pharmacy Electronically, [facility] #[id number], 170, cm, 07/23/23 16:32:00 EDT, Height, 100, kg, 04/20/23 21:48:00 EST, Dry Weight Start Date: 08/11/23 Stop Date: 02/07/24 Status: Ordered Suboxone 8 mg-2 mg Sublingual Film 3 film, Sublingual, Daily, or as directed, # 90 film, 0 Refills, Maintenance, 12/16/23 14:10:00 EDT, [facility] #[id number], Partial fill upon patient request if the prescription is for a schedule II opioid drug. ALVINA [id number], 3 film Sublingual... Start Date: 12/16/23 Stop Date: 01/15/24 Status: Ordered tiZANidine 2 mg oral tablet 2 mg, 1, tablet, By Mouth, 3 times a day, # 84 tablet, Refills 1, Tot. Refills 1, Maintenance, 09/08/23 18:10:00 EDT, Route to Pharmacy Electronically, [facility] #[id number], Partial fill upon patient request if the prescription is for a schedul... Start Date: 09/08/23 Stop Date: 11/03/23 Status: Ordered traZODone 50 mg oral tablet 50 mg, 1, tablet, By Mouth, Daily at bedtime, as needed for sleep, # 90 tablet, Refills 0, Tot. Refills 0, Maintenance, 12/15/23 12:16:00 EDT, Route to Pharmacy Electronically, [facility] #[id number], Partial fill upon patient request if the pres... Start Date: 12/15/23 Status: Ordered Trelegy Ellipta 200 mcg-62.5 mcg-25 mcg/inh inhalation powder 1 puffs, Inhalation, Daily, at the same time every day, # 3 each, 3 Refills, Maintenance, 07/23/23 16:56:00 EDT, Powder, [facility] #[id number], Partial fill upon patient request if the prescription is for a schedule II opioid drug., 1 puffs Inha... Start Date: 07/23/23 Stop Date: 07/17/24 Status: Ordered Ultram 50 mg oral tablet 1 tablet = 50 mg, By Mouth, Every 12 hours, PRN for pain, # 20 tablet, 0 Refills, Maintenance, 10/14/23 9:32:00 EDT, Tablet, [facility] #[id number], Partial fill upon patient request if the prescription is for a schedule II opioid drug., 170, cm,... Start Date: 10/14/23 Status: Ordered Ventolin HFA 108 mcg/inh inhalation aerosol with adapter 2 puffs, Inhalation, 4 times a day, PRN for wheezing, # 1 each, 3 Refills, Maintenance, 05/28/23 12:34:00 EST, Aerosol, [facility] #[id number], Partial fill upon patient request if the prescription is for a schedule II opioid drug., 170, cm, 04/04... Start Date: 05/28/23 Status: Ordered Voltaren Arthritis Pain 1% topical gel = 4 Gm, Topically, 4 times a day, # 480 Gm, 4 Refills, Maintenance, 07/24/23 14:31:00 EDT, [facility] #[id number], Partial fill upon patient request if the [...] Professional Member Role: PCP Address: Address: [address] [place] [address] [place] [address]- [place] Name: Blaire Iglesias [place] Position: [facility] Staff Member Role: Primary Care Nurse Name: Rhiannon Li [place] Position: [facility] Staff Member Role: Primary Care Nurse Name: Viral Jolly MD Position: [facility] Physician - Behavioral Health Member Role: Lifetime Consulting Physician Address: Address: [address] [place] [address]- Care Team Related Persons Name: MAIN MOSER Address: home [address] [place] [address] Name: JORGE GARCIA Address: home [address] [place] [address] Name: LOREE SIFUENTES
--- OUTSIDE RECORDS SUMMARY | 2024-03-03 23:38 | XMS_ITS | Continuity of Care Document ---
Author Organization [facility] Address [address] [place] [address]- Care Team Providers Care Caption Writer Name Role Phone Angela BROWN, Robyn Martinez Primary Care Physician Encounter [facility] Date(s): 06/13/20 - 10/11/20 [facility] [address] [place] [address]- Attending Physician: Cheyenne Lares MD Allergies, Adverse Reactions, Alerts Substance Reaction [...] Unknown, 11 Refills, Maintenance, 06/19/20 16:07:00 EST, [facility] [id number], 20, INHALE 2 PUFFS BY MOUTH EVERY 4 TO 6 HOURS NEEDED FOR WHEEZE FOR SHORTNESS... Start Date: 06/19/20 Status: Ordered Suboxone 8 mg-2 mg sublingual film 2.5 FILMS, Sublingual, Daily, [id number], # 75 film, 1 Refills, Maintenance, 04/26/20 16:38:00 EST, [facility] #[id number], 2.5 FILMS Sublingual Daily,Instr:[id number], 163, cm, 04/26/20 14:26:00 EST, Height, 105, [...]
--- OUTSIDE RECORDS SUMMARY | 2024-03-03 23:38 | XMS_ITS | Continuity of Care Document ---
Author Organization [facility] Address [address] [place] [address]- Care Team Providers Care Loading Manager Name Role Phone Gen BROWN, Claribel Primary Care Physician Encounter [facility] Date(s): 11/12/21 - [facility]12[facility] [address] [place] [address]- Allergies, Adverse Reactions, Alerts No Known Allergies Immunizations Given and Recorded Vaccine Date Status Refusal Reason SARS-CoV-2 (COVID-19) mRNA BNT-162b2 vac 09/08/20 Recorded SARS-CoV-2 (COVID-19) mRNA BNT-162u1 vac 08/18/20 Recorded pneumococcal 23-valent vaccine 10/21/16 [...]
--- OUTSIDE RECORDS SUMMARY | 2024-03-03 23:38 | XMS_ITS | Continuity of Care Document ---
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 Start Date: 03/25/23 Status: Ordered Breo Ellipta 100 mcg-25 mcg/inh inhalation powder 1 puffs, Inhalation, Daily, RINSE MOUTH AFTERWARDS., # 1 each, 3 Refills, 11/21/22 10:33:00 EDT, [facility] #[id number], 1 puffs Inhalation Daily,Instr:RINSE MOUTH AFTERWARDS., 170, cm, 11/19/2313:19:00 EDT, Height, 94.4, kg, 11/08/22 14:35:00 E... Start Date: 11/21/22 Status: Ordered calcium (as citrate)-vitamin D 315 mg-250 intl units oral tablet 2 tablet, By Mouth, 2 times a day, # 120 tablet, 11 Refills, Maintenance, 10/27/23 11:47:00 EDT, Tablet, [facility] #[id number], Partial fill upon patient request if the [...] 09/18/23 10:13:00 EDT, Route to Pharmacy Electronically, [facility] #[id number], Partial... Start Date: 09/18/23 Stop Date: 03/16/24 Status: Ordered duloxetine 30 mg oral enteric coated capsule 1 capsule = 30 mg, By Mouth, 2 times a day, do not crush or chew, # 180 capsule, 3 Refills, Maintenance, 12/15/23 12:15:00 EDT, [facility] #[id number], 170, cm, 11/26/23 7:18:00 EDT, Height, 100, kg, 10/09/23 2:02:00 EDT, Dry Weight Start Date: 12/15/23 Status: Ordered duloxetine 30 mg oral enteric coated capsule 1 capsule = 30 mg, By Mouth, 2 times a day, do not crush or chew, # 180 capsule, 3 Refills, Maintenance, 12/20/22 17:50:00 EDT, [facility] #[id number], 170, cm, 12/06/22 0:43:00 EDT, Height, 94.4, kg, 11/08/22 14:35:00 EDT, Dry Weight Start Date: 12/20/22 Status: Ordered fluconazole 150 mg oral tablet 1 tablet = 150 mg, By Mouth, Once, For treatment of Yeast infection, repeat dose if still having symptoms in 72 hours, # 2 tablet, 0 Refills, Soft Stop, 12/19/23 10:58:00 EDT, Tablet, [facility] #[id number], Partial fill upon patient request if t... Start Date: 12/19/23 Status: Ordered gabapentin 300 mg oral capsule 300 mg, 1, capsule, By Mouth, 3 times a day, # 270 capsule, Refills 1, Tot. Refills 1, Maintenance,12/15/23 12:15:00 EDT, Route to Pharmacy Electronically, [facility] #[id number], Partial fill upon patient request, 170, cm, 11/26/23 7:18:00 EDT,... Start Date: 12/15/23 Status: Ordered gabapentin 300 mg oral capsule 300 mg, 1, capsule, By Mouth, 3 times a day, # 270 capsule, Refills 1, Tot. Refills 1, Maintenance,08/11/23 9:29:00 EDT, Route to Pharmacy Electronically, [facility] #[id number], Partial fill upon patient request, 170, cm, 07/23/23 16:32:00 EDT,... Start Date: 08/11/23 Status: Ordered hydroxychloroquine 200 mg oral tablet 1, tablet, By Mouth, 2 times a day, # 60 tablet, Refills 5, Tot. Refills 5, 12/25/23 9:59:00 EDT, Route to Pharmacy Electronically, [facility] #[id number], 170, cm, 12/19/23 10:38:00 EDT, Height, 100, kg, 10/09/23 2:02:00 EDT, Dry Weight Start Date: 12/25/23 Status: Ordered hydrOXYzine hydrochloride 25 mg oral tablet See Instructions, TAKE 1 TABLET BY MOUTH TWICE DAILY NEEDED FOR ANXIETY, # 60 tablet, 5 Refills,Maintenance, 09/18/23 10:13:00 EDT, [facility] #[id number], 170, cm, 07/23/23 16:32:00 EDT, Height, 100, kg, 04/20/23 21:48:00 EST, Dry Weight Start Date: 09/18/23 Status: Ordered NEBULIZER MACHINE AND TUBING NEBULIZER MACHINE AND TUBING, See Instructions, PRN Wheezing/Shortness of Breath, # 1 each, Refills0, Tot. Refills 0, Maintenance, USE NEEDED FOR WHEEZING DX:, 06/17/23 15:49:00 EST, Supply Start Date: 06/17/23 Status: Ordered NuLYTELY [place] oral powder for reconstitution 240 mL, By Mouth, Every 10 minutes, # 1 each, 0 Refills, Maintenance, 12/03/23 9:52:00 EDT, REC Powder, [facility] #[id number], Partial fill upon patient request if the prescription is for a schedule II opioid drug., 170, cm, 11/26/23 7:18:00 EDT... Start Date: 12/03/23 Status: Ordered PHENobarbital 30 mg oral tablet 1 tablet = 30 mg, By Mouth, 2 times a day, # 60 tablet, 1 Refills, Maintenance, 11/20/23 16:42:00 EDT, Tablet, [facility] #[id number], IF NOT COVERED, please use goodrx coupon and allow pt to pay OOP; $9.09; BIN [id number]; [facility]; Group [address]; Membe... Start Date: 11/20/23 Status: Ordered PHENobarbital 30 mg oral tablet 1 tablet = 30 mg, By Mouth, 2 times a day, # 60 tablet, 1 Refills, Maintenance, 12/15/23 12:14:00 EDT, Tablet, [facility] #[id number], IF NOT COVERED, please use goodrx coupon and allow pt to pay OOP; $9.09; BIN [id number]; [facility]; Group [address]; Membe... Start Date: 12/15/23 Status: Ordered risperiDONE 1 mg oral tablet 1 mg, 1, tablet, By Mouth, Daily, # 90 tablet, Refills 1, Tot. Refills 1, Maintenance, 08/11/23 9:29:00 EDT, Route to Pharmacy Electronically, [facility] #[id number], 170, cm, 07/23/23 16:32:00 EDT, Height, 100, kg, 04/20/23 21:48:00 EST, Dry Weight Start Date: 08/11/23 Stop Date: 02/07/24 Status: Ordered Suboxone 8 mg-2 mg Sublingual Film 3 film, Sublingual, Daily, or as directed, # 90 film, 0 Refills, Maintenance, 12/16/23 14:10:00 EDT, [facility] #[id number], Partial fill upon patient request if the prescription is for a schedule II opioid drug. ALVINA [id number], 3 film Sublingual... Start Date: 12/16/23 Stop Date: 01/15/24 Status: Ordered tiZANidine 2 mg oral tablet 2 mg, 1, tablet, By Mouth, 3 times a day, # 84 tablet, Refills 1, Tot. Refills 1, Maintenance, 12/26/23 9:21:00 EDT, Route to Pharmacy Electronically, [facility] #[id number], Partial fill upon patient request if the prescription is for a schedule... Start Date: 12/26/23 Stop Date: 02/20/24 Status: Ordered traZODone 50 mg oral tablet 50 mg, 1, tablet, By Mouth, Daily at bedtime, as needed for sleep, # 90 tablet, Refills 0, Tot. Refills 0, Maintenance, 12/15/23 12:16:00 EDT, Route to Pharmacy Electronically, [facility] #[id number], Partial fill upon patient request if the pres... Start Date: 12/15/23 Status: Ordered Trelegy Ellipta 200 mcg-62.5 mcg-25 mcg/inh inhalation powder 1 puffs, Inhalation, Daily, at the same time every day, # 3 each, 3 Refills, Maintenance, 07/23/23 16:56:00 EDT, Powder, [facility] #[id number], Partial fill upon patient request if the prescription is for a schedule II opioid drug., 1 puffs Inha... Start Date: 07/23/23 Stop Date: 07/17/24 Status: Ordered Ultram 50 mg oral tablet 1 tablet = 50 mg, By Mouth, Every 12 hours, PRN for pain, # 20 tablet, 0 Refills, Maintenance, 10/14/23 9:32:00 EDT, Tablet, [facility] #[id number], Partial fill upon patient request if the prescription is for a schedule II opioid drug., 170, cm,... Start Date: 10/14/23 Status: Ordered Ventolin HFA 108 mcg/inh inhalation aerosol with adapter 2 puffs, Inhalation, 4 times a day, PRN for wheezing, # 1 each, 3 Refills, Maintenance, 05/28/23 12:34:00 EST, Aerosol, [facility] #[id number], Partial fill upon patient request if the prescription is for a schedule II opioid drug., 170, cm, 04/04... Start Date: 05/28/23 Status: Ordered Voltaren Arthritis Pain 1% topical gel = 4 Gm, Topically, 4 times a day, # 480 Gm, 4 Refills, Maintenance, 07/24/23 14:31:00 EDT, [facility] #[id number], Partial fill upon patient request if the [...] Personnel Name: Roxi BROWN, Compa Hall Position: [facility] PCO Associate Professional Member Role: PCP Address: Address: [address] [facility] [place] [address]- Name: Blaire Iglesias [place] Position: [facility] Office Staff Member Role: Primary Care Nurse Name: Rhiannon Li [place] Position: [facility] Office Staff Member Role: Primary Care Nurse Name: Viral Jolly MD Position: [facility] Physician - Behavioral Health Member Role: Lifetime Consulting Physician Address: Address: [address] [place] [id number]- Care Team Related Persons Name: MAIN MOSER Address: home [address] [place] [address] Name: JORGE GARCIA Address: home [address] [place] [address] Name: LOREE SIFUENTES
--- OUTSIDE RECORDS SUMMARY | 2024-03-03 23:38 | XMS_ITS | Continuity of Care Document ---
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 Start Date: 06/19/20 Status: Ordered Suboxone 8 mg-2 mg sublingual film 2.5 FILMS, Sublingual, Daily, [id number], # 75 film, 1 Refills, Maintenance, 04/26/20 16:38:00 EST, [facility] #[id number], 2.5 FILMS Sublingual Daily,Instr:[id number], 163, cm, 04/26/20 14:26:00 EST, Height, 105, [...]
--- OUTSIDE RECORDS SUMMARY | 2024-03-03 23:38 | XMS_ITS | Continuity of Care Document ---
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 Start Date: 10/15/22 Status: Ordered cloNIDine 0.1 mg oral tablet 0.05 mg, 0.5, tablet, By Mouth, 4 times a day, PRN, # 60 tablet, Refills 1, Tot. Refills 1, Maintenance, anxiety, panic, withdrawal symptoms, 10/25/22 15:45:00 EDT, Route to Pharmacy Electronically, [facility] #[id number], Partial fill upon patie... Start Date: 10/25/22 Status: Ordered diclofenac 1% topical gel = 2 Gm, Topically, 2 times a day, # 100 Gm, 2 Refills, 05/16/22 16:23:00 EST, [facility] #[id number], 25, 2 Gm Topically 2 times a [...] 04/03/23 9:00:00 EST, 10/25/22 15:39:00 EDT, Tablet, [facility] #[id number], Partial fill upon patient... Start Date: 10/25/22 Stop Date: 04/03/23 Status: Ordered duloxetine 30 mg oral enteric coated capsule 1 capsule = 30 mg, By Mouth, 2 times a day, do not crush or chew, # 180 capsule, 3 Refills, Maintenance, 02/19/22 14:28:00 EDT, [facility] #[id number], 170, cm, 03/07/21 11:09:00 EDT, Height, 107.3, kg, 06/22/20 13:29:00 EST, Dry Weight Start Date: 02/19/22 Status: Ordered famotidine 20 mg oral tablet 20 mg, 1, tablet, By Mouth, Daily, OV 5-6-20, # 30 tablet, Refills 5, Tot. Refills 5, Maintenance, 08/21/20 12:25:00 EDT, Route to Pharmacy Electronically, [facility]/pharmacy #[id number], 170, cm, 08/16/20 15:32:00 EDT, Height, 107.3, kg, 06/22/20 13:29:00 EST, D... Start Date: 08/21/20 Status: Ordered gabapentin 300 mg oral capsule 300 mg, 1, capsule, By Mouth, 3 times a day, # 270 capsule, Refills 1, Tot. Refills 1, Maintenance,08/21/21 14:14:00 EDT, Route to Pharmacy Electronically, [facility] #[id number], Partial fill upon patient request, 170, cm, 03/07/21 11:09:00 EDT... Start Date: 08/21/21 Status: Ordered gabapentin 300 mg oral capsule 300 mg, 1, capsule, By Mouth, 3 times a day, # 270 capsule, Refills 3, Tot. Refills 3, Maintenance,02/19/22 14:28:00 EDT, Route to Pharmacy Electronically, [facility] #[id number], Partial fill upon patient request, 170, cm, 03/07/21 11:09:00 EDT... Start Date: 02/19/22 Status: Ordered hydroxychloroquine 200 mg oral tablet 1, tablet, By Mouth, 2 times a day, # 60 tablet, Refills 5, Tot. Refills 5, 05/16/22 16:23:00 EST, Route to Pharmacy Electronically, [facility] #[id number], 175, cm, 05/01/22 15:32:00 EST, Height, 75, [...] 18 Gm, 5 Refills, 03/20/22 16:08:00 EST, [facility] #[id number], 2 puffs Inhalation Every 4 to 6 hours,PRN: NEEDED FOR SHORTNESS OF BREATH OR WHEEZING... Start Date: 03/20/22 Status: Ordered ProAir HFA 90 mcg/inh inhalation aerosol 2 puffs, Inhalation, Every 4 to 6 hours, PRN NEEDED FOR SHORTNESS OF BREATH OR WHEEZING, # 18 each, 1 Refills, 10/15/22 15:56:00 EDT, [facility] #[id number], 20, 2 puffs Inhalation Every 4 to6 hours,PRN: NEEDED FOR SHORTNESS OF BREATH OR WH... Start Date: 10/15/22 Status: Ordered risperiDONE 1 mg oral tablet 1 mg, 1, tablet, By Mouth, Daily, # 90 tablet, Refills 3, Tot. Refills 3, Maintenance, 02/19/22 14:27:00 EDT, Route to Pharmacy Electronically, [facility] #[id number], 170, cm, 03/07/21 11:09:00EDT, Height, 107.3, kg, 06/22/20 13:29:00 EST, Dry... Start Date: 02/19/22 Stop Date: 02/14/23 Status: Ordered Suboxone 8 mg-2 mg Sublingual Film 1 film, Sublingual, 3 times a day, dissolve under the tongue, # 90 film, 1 Refills, Maintenance, 11/14/22 10:32:00 EDT, [facility] #[id number], Partial fill upon patient request if the prescription is for a schedule II opioid drug. ALVINA [id number];... Start Date: 11/14/22 Stop Date: 01/13/23 Status: Ordered Vitamin D3 1000 intl units oral tablet 1 tablet = 1,000 International_Units, By Mouth, Daily, # 30 tablet, 11 Refills, Maintenance, 10/04/19 11:54:00 EDT, Tablet, [facility]/pharmacy #[id number], 163, cm, 10/04/19 11:27:00 EDT, [...] Team Personnel Name: Compa Diane NP Position: [facility] PCO Associate Professional Member Role: PCP Address: Address: [address] [place] [address] [place] [address]- Name: Blaire Iglesias [place] Position: [facility] RN Member Role: Primary Care Nurse Name: Rhiannon Gibson Position: [facility] RN Member Role: Primary Care Nurse Name: Viral Jolly MD Position: [facility] Physician - Behavioral Health Member Role: Lifetime Consulting Physician Address: Address: [address] [place] [id number]- Care Team Related Persons Name: MAIN MOSER Address: home [address] [place] [address] Name: JORGE GARCIA Address: [address] [place] [address] Name: LOREE SIFUENTES
--- OUTSIDE RECORDS SUMMARY | 2024-03-03 23:38 | XMS_ITS | Continuity of Care Document ---
Author Organization [facility] Address [address] [place] [address]- Care Team Providers Care Review Specialist Name Role Phone Not on Staff, PCP Primary Care Physician Unavail able Encounter [facility] Date(s): 08/09/22 - 08/09/[address] [address]- Discharge Disposition: A-D/C Home Attending Physician: Jim Henderson MD Admitting Physician: Jim Henderson MD Referring Physician: Not on Staff, Referring [...] # 60 each, 1 Refills, [id number], 30, INHALE 1 PUFF BY MOUTH EVERY DAY. RINSE MOUTH AFTERWARDS., 170, cm, 03/07/21 11:09:00 EDT, Height, 107.3, kg, 06/22/20 13:29:00 EST, Dry Weight Start Date: 11/12/21 Status: Ordered cefpodoxime 200 mg oral tablet 1 tablet = 200 mg, By Mouth, Every 12 hours, for 7 days, # 14 tablet, 0 Refills, Acute 08/16/22 12:59:00 EDT, 08/09/22 12:59:00 EDT, Tablet, [facility] #[id number], Partial fill upon patient request if the prescription is for a schedule II opioid... Start Date: 08/09/22 Stop Date: 08/16/22 Status: Ordered diclofenac 1% topical gel = 2 Gm, Topically, 2 times a day, # 100 Gm, 2 Refills, 05/16/22 16:23:00 EST, [facility] #[id number], 25, 2 Gm Topically 2 times a day, 175, cm, 05/01/22 15:32:00 EST, Height, 75, kg, 05/01/22 15:32:00 EST, Dry Weight Start Date: 05/16/22 Status: Ordered duloxetine 30 mg oral enteric coated capsule 1 capsule = 30 mg, By Mouth, 2 times a day, do not crush or chew, # 180 capsule, 3 Refills, Maintenance, 02/19/22 14:28:00 EDT, [facility] #[id number], 170, cm, 03/07/21 11:09:00 EDT, Height, 107.3, kg, 06/22/20 13:29:00 EST, Dry Weight Start Date: 02/19/22 Status: Ordered famotidine 20 mg oral tablet 20 mg, 1, tablet, By Mouth, Daily, OV 5-6-20, # 30 tablet, Refills 5, Tot. Refills 5, Maintenance, 08/21/20 12:25:00 EDT, Route to Pharmacy Electronically, [facility]/pharmacy #[id number], 170, cm, 08/16/20 15:32:00 EDT, Height, 107.3, kg, 06/22/20 13:29:00 EST, D... Start Date: 08/21/20 Status: Ordered gabapentin 300 mg oral capsule 300 mg, 1, capsule, By Mouth, 3 times a day, # 270 capsule, Refills 1, Tot. Refills 1, Maintenance,08/21/21 14:14:00 EDT, Route to Pharmacy Electronically, [facility] #[id number], Partial fill upon patient request, 170, cm, 03/07/21 11:09:00 EDT... Start Date: 08/21/21 Status: Ordered gabapentin 300 mg oral capsule 300 mg, 1, capsule, By Mouth, 3 times a day, # 270 capsule, Refills 3, Tot. Refills 3, Maintenance,02/19/22 14:28:00 EDT, Route to Pharmacy Electronically, [facility] #[id number], Partial fill upon patient request, 170, cm, 03/07/21 11:09:00 EDT... Start Date: 02/19/22 Status: Ordered hydroxychloroquine 200 mg oral tablet 1, tablet, By Mouth, 2 times a day, # 60 tablet, Refills 5, Tot. Refills 5, 05/16/22 16:23:00 EST, Route to Pharmacy Electronically, [facility] #[id number], 175, cm, 05/01/22 15:32:00 EST, Height, 75, [...] 18 Gm, 5 Refills, 03/20/22 16:08:00 EST, [facility] #[id number], 2 puffs Inhalation Every 4 to 6 hours,PRN: NEEDED FOR SHORTNESS OF BREATH OR WHEEZING... Start Date: 03/20/22 Status: Ordered risperiDONE 1 mg oral tablet 1 mg, 1, tablet, By Mouth, Daily, # 90 tablet, Refills 3, Tot. Refills 3, Maintenance, 02/19/22 14:27:00 EDT, Route to Pharmacy Electronically, [facility] #[id number], 170, cm, 03/07/21 11:09:00EDT, Height, 107.3, kg, 06/22/20 13:29:00 EST, Dry... Start Date: 02/19/22 Stop Date: 02/14/23 Status: Ordered Suboxone 8 mg-2 mg Sublingual Film 1 film, Sublingual, 3 times a day, dissolve under the tongue, # 90 film, 1 Refills, Maintenance, 07/15/22 12:58:00 EDT, [facility] #[id number], Partial fill upon patient request if the prescription is for a schedule II opioid drug. ALVINA [id number],... Start Date: 07/15/22 Stop Date: 09/13/22 Status: Ordered Suboxone 8 mg-2 mg Sublingual Film 1 film, Sublingual, 3 times a day, dissolve under the tongue, # 21 film, 0 Refills, Maintenance, 04/05/22 8:36:00 EST, [facility] #[id number], Partial fill upon patient request if the prescription is for a schedule II opioid drug. ALVINA [id number],... Start Date: 04/05/22 Stop Date: 04/12/22 Status: Ordered Suboxone 8 mg-2 mg Sublingual Film 1 film, Sublingual, 3 times a day, dissolve under the tongue, # 90 film, 1 Refills, Maintenance, 02/08/22 13:04:00 EDT, [facility] #[id number], Partial fill upon patient request if the prescription is for a schedule II opioid drug. ALVINA [id number],... Start Date: 02/08/22 Stop Date: 04/09/22 Status: Ordered Suboxone 8 mg-2 mg Sublingual Film 1 film, Sublingual, 3 times a day, dissolve under the tongue, # 90 film, 1 Refills, Maintenance, 12/10/21 14:40:00 EDT, [facility] #[id number], Partial fill upon patient request if the prescription is for a schedule II opioid drug. ALVINA [id number],... Start Date: 12/10/21 Stop Date: 02/08/22 Status: Ordered Suboxone 8 mg-2 mg Sublingual Film 1 film, Sublingual, 3 times a day, dissolve under the tongue, # 21 film, 0 Refills, Maintenance, 04/12/22 14:58:00 EST, [facility] #[id number], Partial fill upon patient request if the prescription is for a schedule II opioid drug. ALVINA [id number],... Start Date: 04/12/22 Stop Date: 04/19/22 Status: Ordered Suboxone 8 mg-2 mg sublingual film 3 film, Sublingual, Daily, [id number], # 90 film, 1 Refills, Maintenance, 10/21/21 9:55:00 EDT, [facility] #[id number], 3 film Sublingual Daily,x30 days,Instr:[id number], 170, cm, 03/07/21 11:09:00 EDT, Height, 107.3, kg, 06/22/20 13:29:00 EST, Dry... Start Date: 10/21/21 Stop Date: 12/20/21 Status: Ordered traZODone 50 mg oral tablet 50 mg, 1, tablet, By Mouth, Daily at bedtime, PRN, as needed, # 90 tablet, Refills 3, Tot. Refills 3, Maintenance, Sleep, 02/19/22 14:27:00 EDT, Route to Pharmacy Electronically, [facility][id number], 170, cm, 03/07/21 11:09:00 EDT, Height, 107... [...] Confirmed Active Varicose vein Confirmed Active Results Orders for Microbiology Reports Name Date Urine Culture (URINE CULTURE) 08/09/22 Microbiology Reports TEST:Urine Culture STATUS:Unauthenticated BODY SITE: SOURCE:URINE COLLECTED DATE/TIME:08/09/22 9:40 AM Urine Culture SPECIMEN DESCRIPTION : URINE SPECIAL REQUESTS : NONE Reflexed from [id number] REPORT STATUS : PRELIMINARY REPORT Radiology Reports * Exam Date Time Procedure Performing Provider Status 08/09/22 11:[address] Abdomen and Pelvi s W/O Contrast Chary Talbert; Auth (Verified) Notes: (CT Abdomen and Pelvis W/O Contrast) Reason For Exam: Pain RESULT: CT Abdomen and Pelvis W/O Contrast CT Abdomen and Pelvis W/O Contrast Hx of Present Illness: 1 week of worsening frewquency, lower abd pressure and now hematuria,; Reason: Pain; Clinical Question(s): Calculus TECHNIQUE: Spiral CT through the abdomen and pelvis without IV contrast formatted in 3 planes. Thisstudy was performed oral contrast. Weight-based protocol using automatic tube modulation was used to optimize exposure parameters. CTDIvol Body: 20.88 mGy, DLP Body: 920 mGy*cm. COMPARISON: None FINDINGS: Human Resources Department Supervisor View Findings, Lines and Tubes: None. Visualized Chest: Lung bases are without consolidation or pleural effusion. Portion of the upper abdomen is not included on this exam including the superior most aspect of theliver and spleen. There is limited evaluation of solid abdominal organs without intravenous contrast. Diaphragm: Normal. Liver: Marked diffuse hepatic steatosis. Gallbladder: No CT evidence of gallbladder pathology. Bile ducts: No biliary ductal dilation. Spleen: Normal size of the spleen. Pancreas: No peripancreatic stranding or fluid. Adrenal glands: No massive thickening of the adrenal glands. Kidneys and ureters: No hydroureteronephrosis. No radiopaque stone along the ureters. There is a small exophytic lesion at the mid pole of the right kidney which is too small to fully characterize and is most likely a cyst, series 2 image 45. No solid mass detected. Bladder: Nondistended urinary bladder. Minimal stranding at the dome. Reproductive organs: No acute abnormality Stomach, small bowel, and large bowel: No bowel obstruction. Colonic diverticula without evidence of acute diverticulitis. Appendix: Normal. Peritoneum and retroperitoneum: No ascites or fluid collection. Lymph nodes: Small retroperitoneal nodes. No adenopathy. Blood vessels: Nonaneurysmal abdominal aorta. Mild to moderate eccentric infrarenal abdominal aortic and iliac artery calcified atherosclerosis. Abdominal and pelvic wall: No bowel containing hernia. Mild broad-based diastases of the ventral abdominal wall. Tiny fat-containing umbilical hernia. Mild fatty atrophy. Bones: No acute abnormality. Mild disc degenerative changes with mild disc bulge at L5-S1. Mild levoconvex curvature of the lumbar spine. IMPRESSION: Minimal perivesicular stranding. This can be seen with cystitis. Recommend correlation with urinalysis. No hydronephrosis. Hepatic steatosis. WSN: [id number] Ordering Physician: Johanny Dietrich Dictated By: Louann Chahal MD Dictated Date/Time: 08/09/22 12:20 p Reviewed By: Louann Chahal MD Signed By: Louann Chahal MD Signed Date/Time: 08/09/22 12:20 pm Transcribed By: KHADRA Transcribed Date/Time: 08/09/22 12:10 pm Vital Signs Most recent to oldest [Reference Range]: 1 2 3 Height 169 cm (08/09/22 1:07 PM) 169 cm (08/09/22 12:11 PM) 169 cm (08/09/22 9:23 AM) Weight 94.2 kg (08/09/22 12:11 PM) 94.2 kg (08/09/22 9:23 AM) Oxygen Saturation [94-100 %] 96 % (08/09/22 1:07 PM) 97 % (08/09/22 12:11 PM) 96 % (08/09/22 9:28 AM) Pulse Rate [55-90 bpm] 103 bpm *H* (08/09/22 1:07 PM) 95 bpm *H* (08/09/22 12:11 PM) 92 bpm *H* (08/09/22 9:28 AM) Body Mass Index [18.5-24.99 kg/m2] 32.98 kg/m2 *>HHI* (08/09/22 12:11 PM) Blood Pressure [90-138/55-84 mm Hg] 161/101mm Hg *H* (08/09/22 1:07 PM) 128/80mm Hg (08/09/22 12:11 PM) 126/75mm Hg (08/09/22 9:28 AM) Respiratory Rate [16-30 br/min] 22 br/min (08/09/22 1:07 PM) 20 br/min (08/09/22 12:11 PM) Temperature [96.8-100.4 DegF] 97.9 DegF (08/09/22 1:07 PM) 96.8 DegF (08/09/22 9:28 AM) Mode of Delivery (Oxygen) Room air (08/09/22 1:07 PM) Room air (08/09/22 12:11 PM) Room air (08/09/22 9:28 AM) Blood pressure sites Arm, left (08/09/22 1:07 PM) Arm, left (08/09/22 12:11 PM) Arm, left (08/09/22 9:28 AM) Temperature Route Oral (08/09/22 1:07 PM) Temporal (08/09/22 9:28 AM) Dry Weight 94.2 kg (08/09/22 12:11 PM) 94.2 kg (08/09/22 9:23 AM) Weight Obtained Via Standing scale (08/09/22 9:23 AM) Social History Social History Type Response Smoking Status Current every day antony gomez entered on: 09/29/14 Sex Note * Johanny Navarro: PERFORM Event Display: Patient Education Leaflets Authored Date: [id number] Bladder Infection,??Female (Adult) ?? [id number] Bladder Infection,??Female (Adult) Urine normally doesn't have any germs (bacteria) in it. But bacteria can get into the urinary tractfrom the skin around the rectum. Or they can travel in the blood from other parts of the body. Oncethey are in your urinary tract, they can cause infection in these areas: ??? The urethra (urethritis) ??? The bladder (cystitis) ??? The kidneys (pyelonephritis) The most common place for an infection is in the bladder. This is called a bladder infection. This is one of the most common infections in women because women have a shorter urethra than men. Bacteria have a shorter distance to travel to reach the bladder.. Women who have gone through menopause also lose the protection from estrogen that lowers the chance of getting a UTI. And some women are at higher risk because of their genes. Most bladder infections are easily treated. They are not serious unless the infection spreads to the kidney. The terms bladder infection, UTI, and cystitis are often used to describe the same thing. But they are not always the same. Cystitis is an inflammation of the bladder. The??most common cause of cystitis is an infection. Symptoms The infection causes inflammation in the urethra and bladder. This causes many of the symptoms. Themost common symptoms of a bladder infection are: ??? Pain or burning when urinating ??? Having to urinate more often than normal ??? Urgent need to urinate ??? Only a small amount of urine comes out ??? Blood in urine ??? Belly (abdominal) discomfort. This is often in the lower belly above the pubic bone. ??? Lower back pain ??? Cloudy urine ??? Strong- or bad-smelling urine ??? Unable to urinate(urinary retention) ??? Unable to hold urine in (urinary incontinence) ??? Fever ??? Loss of appetite ??? Confusion (in older adults) ?? Causes Bladder infections are not contagious. You can't get one from someone else, from a toilet seat, or from sharing a bath. The most common cause of bladder infections is bacteria from the bowels. The bacteria get onto the skin around the opening of the urethra. From there, they can get into the urine. Then they travel upto the bladder, causing inflammation and infection. This often happens because of: ??? Wiping incorrectly after urinating. Always wipe from front to back. ??? Bowel incontinence ??? . Duringpregnancy urinary tract changes raise the risk for infection. ??? Procedures such as having a catheter put in ??? Older age ??? Not emptying your bladder. This can give bacteria a chance to grow in your urine. ??? Fluid loss (dehydration) ??? Constipation ??? Having sex ??? Using a diaphragm for control? Treatment Bladder infections are diagnosed by a urine test and urine culture. They are treated with antibiotics. They often??clear up quickly without problems. Treatment helps prevent a more serious kidney infection. ?? Medicines Medicines can help in the treatment of a bladder infection: ??? Take antibiotics until they are used up, even if you feel better. It's important to finish them to make sure the infection has cleared.??? You can use acetaminophen or ibuprofen for pain, fever, or discomfort, unless another medicine was prescribed. If you have long-term (chronic) liver or kidney disease, talk with your healthcare??provider before using??these medicines. Also talk with your provider if you've ever had a stomach ulcer or GI (gastrointestinal) bleeding, or are taking blood-thinner medicines. ??? If you are given??phenazopydridine to reduce burning with urination, it will make your urine a bright orange color. This can stain clothing. ?? Care and prevention These self-care steps can help prevent future infections: ??? Drink plenty of fluids. This helps toprevent dehydration and flush out your bladder. Do this??unless you must restrict fluids for other health reasons, or your healthcare provider told you not to. ??? Clean yourself correctly after going to the bathroom. Wipe from front to back after using the toilet. This helps prevent the spread of bacteria. ??? Urinate more often. Don't try to hold urine in for a long time. ??? Wear loose-fittingclothes and cotton underwear. Don't wear tight- fitting pants. ??? Improve your diet and prevent constipation. Eat more fresh fruits and vegetables, and??fiber. Eat less junk foods and fatty foods. ??? Don't have sex until your symptoms are gone. ??? Don't have caffeine, alcohol, and spicy foods. These can irritate your bladder. ??? Urinate right after you have sex to flush out your bladder. ??? If you use control pills and have frequent bladder infections, discuss it with your healthcare provider. ?? Follow-up care Call your healthcare provider if all symptoms are not gone after 3 days of treatment. This is especially important if you have repeat infections. If a culture was done, you will be told if your treatment needs to be changed. If directed, you cancall??to find out the results. If X-rays were done, you will be told if the results will affect your??treatment. ?? Call 911 Call 911 if any of the following occur: ??? Trouble breathing ??? Hard to wake up or??confusion ???Fainting (loss of consciousness) ??? Fast heart rate ?? When to get medical advice Call your healthcare provider right away if any of these occur: ??? Fever of 100.4??F (38.0??C) or higher, or as directed by your healthcare provider ??? Symptoms are not better??after 3 days of treatment ??? Symptoms get worse or you have new symptoms ??? Back or belly pain that gets worse ??? Repeated vomiting, or unable to keep medicine down ??? Weakness or dizziness ??? Vaginal discharge ??? Pain, redness, or swelling in the outer vaginal area (labia) ?? Last Reviewed Date: 2021 ?? 9163-6514 [employer]. All rights reserved. This information is not intended as a substitute for professional medical care. Always follow your healthcare professional's instructions. ?? CT Abdomen and Pelvis WO contrast * [facility] , CIS S: TRANSCRIBE Louann Chahal MD: VERIFY Event Display: Result: Authored Date: CT Abdomen and Pelvis W/O Contrast Hx of Present Illness: 1 week of worsening frewquency, lower abd pressure and now hematuria,; Reason: Pain; Clinical Question(s): Calculus TECHNIQUE: Spiral CT through the abdomen and pelvis without IV contrast formatted in 3 planes. Thisstudy was performed oral contrast. Weight-based protocol using automatic tube modulation was used to optimize exposure parameters. CTDIvol Body: 20.88 mGy, DLP Body: 920 mGy*cm. COMPARISON: None FINDINGS: Human Resources Department Supervisor View Findings, Lines and Tubes: None. Visualized Chest: Lung bases are without consolidation or pleural effusion. Portion of the upper abdomen is not included on this exam including the superior most aspect of theliver and spleen. There is limited evaluation of solid abdominal organs without intravenous contrast. Diaphragm: Normal. Liver: Marked diffuse hepatic steatosis. Gallbladder: No CT evidence of gallbladder pathology. Bile ducts: No biliary ductal dilation. Spleen: Normal size of the spleen. Pancreas: No peripancreatic stranding or fluid. Adrenal glands: No massive thickening of the adrenal glands. Kidneys and ureters: No hydroureteronephrosis. No radiopaque stone along the ureters. There is a small exophytic lesion at the mid pole of the right kidney which is too small to fully characterize and is most likely a cyst, series 2 image 45. No solid mass detected. Bladder: Nondistended urinary bladder. Minimal stranding at the dome. Reproductive organs: No acute abnormality Stomach, small bowel, and large bowel: No bowel obstruction. Colonic diverticula without evidence of acute diverticulitis. Appendix: Normal. Peritoneum and retroperitoneum: No ascites or fluid collection. Lymph nodes: Small retroperitoneal nodes. No adenopathy. Blood vessels: Nonaneurysmal abdominal aorta. Mild to moderate eccentric infrarenal abdominal aortic and iliac artery calcified atherosclerosis. Abdominal and pelvic wall: No bowel containing hernia. Mild broad-based diastases of the ventral abdominal wall. Tiny fat-containing umbilical hernia. Mild fatty atrophy. Bones: No acute abnormality. Mild disc degenerative changes with mild disc bulge at L5-S1. Mild levoconvex curvature of the lumbar spine. IMPRESSION: Minimal perivesicular stranding. This can be seen with cystitis. Recommend correlation with urinalysis. No hydronephrosis. Hepatic steatosis. WSN: [id number] Ordering Physician: Johanny Dietrich Dictated By: Louann Chahal MD Dictated Date/Time: 08/09/22 12:20 p Reviewed By: Louann Chahal MD Signed By: Louann Chahal MD Signed Date/Time: 08/09/22 12:20 pm Transcribed By: KHADRA Transcribed Date/Time: 08/09/22 12:10 pm Patient Care team information Care Team Personnel Name: Kelsie VALLADARESDennisBlaire Position: [facility] RN Member Role: Primary Care Nurse Name: Rhiannon Gibson Position: [facility] RN Member Role: Primary Care Nurse Name: Not on Staff, PCP Position: [facility] Physician (General Medicine) Member Role: PCP Name: Viral Jolly MD Position: [facility] Psychiatry MD Member Role: Lifetime Consulting Physician Address: Address: [address] [place] [id number]- Name: Johanny Navarro Position: [facility] Associate Professional Member Role: ED Physician Emt I/[facility] Address: Address: [address] [place] [id number]- Name: Jim Henderson MD Position: [facility] ED Medicine MD Member Role: Admitting Physician Address: Address: [address] [place] [address]- Name: Yuni Campbell RN Position: [facility] ED RN W/OE and Tasks Member Role: Patient Care Provider Name: Paula Delacruz Position: [facility] ED TA [facility] Member Role: Nylon Machine Operator Care Team Related Persons Name: MAIN MOSER Address: home [address] [place] [address] Name: JORGE GARCIA Address: home [address] [place] [address]
--- OUTSIDE RECORDS SUMMARY | 2024-03-03 23:38 | XMS_ITS | Continuity of Care Document ---
Author Organization [facility] e Cheryl Address [address] [place] [address]- Care Team Providers Care Legal Internship Name Role Phone Angela BROWN, Robyn Martinez Primary Care Physician Encounter [facility] [place] [facility] [id number] Date(s): 05/19/19 - 06/19/19 [facility] [address] [place] [address]- [facility] Attending Physician: Robyn Miller NP Admitting [...]
--- OUTSIDE RECORDS SUMMARY | 2024-03-03 23:38 | XMS_ITS | Continuity of Care Document ---
Author Organization [facility] Address [address] [place] [address]- Care Team Providers Care Vehicle Technician Name Role Phone Gen BROWN, Claribel Primary Care Physician Encounter [facility] Date(s): 08/14/21 - 09/13/21 [facility] [address] [place] [address]- Allergies, Adverse Reactions, Alerts No Known Allergies [...] OR WHEEZING, # 18 each, 6 Refills, [id number], 20, INHALE 2 PUFFS BY MOUTH EVERY [...]
--- OUTSIDE RECORDS SUMMARY | 2024-03-03 23:38 | XMS_ITS | Continuity of Care Document ---
Author Organization [facility] Address [address] [address]- Care Team Providers Care Cycle Analyst Name Role Phone Fine LAUNDRY TUB MAKER, Compa Hall Primary Care Physician Encounter [facility] Date(s): 10/06/23 - 11/05/23 [facility] [address] [place] [id number]- Allergies, Adverse Reactions, Alerts No Known Allergies Immunizations Given and Recorded Vaccine Date Status Refusal Reason SARS-CoV-2 (COVID-19) mRNA BNT-162b2 vac 09/08/20 Recorded SARS-CoV-2 (COVID-19) mRNA BNT-162b7 vac 08/18/20 Recorded pneumococcal 23-valent vaccine 10/21/16 Given tetanus-diphtheria toxoids (Td) 05/05/03 Recorded Medications albuterol-ipratropium 3 mg-0.5 mg/3 ml inhalation solution 3 mL, Inhalation, 4 times a day, PRN Wheezing/Shortness of Breath, DX: J45.909 do not use ventolineand Nebs at the same time, # 90 mL, 11 Refills, Maintenance, 03/25/23 12:53:00 EST, Solution, [facility] #[id number], 3 mL Inhalation 4 times a da... Start Date: 03/25/23 Status: Ordered Breo Ellipta 100 mcg-25 mcg/inh inhalation powder 1 puffs, Inhalation, Daily, RINSE MOUTH AFTERWARDS., # 1 each, 3 Refills, 11/21/22 10:33:00 EDT, [facility] #[id number], 1 puffs Inhalation Daily,Instr:RINSE MOUTH AFTERWARDS., 170, cm, 11/19/2313:19:00 EDT, Height, 94.4, kg, 11/08/22 14:35:00 E... Start Date: 11/21/22 Status: Ordered calcium (as citrate)-vitamin D 315 mg-250 intl units oral tablet 2 tablet, By Mouth, 2 times a day, # 120 tablet, 11 Refills, Maintenance, 10/27/23 11:47:00 EDT, Tablet, [facility] #[id number], Partial fill upon patient request if the [...] 09/18/23 10:13:00 EDT, Route to Pharmacy Electronically, [facility] #[id number], Partial... Start Date: 09/18/23 Stop Date: 03/16/24 Status: Ordered doxycycline hyclate 100 mg oral capsule 1 capsule = 100 mg, By Mouth, 2 times a day, for 7 days, # 14 capsule, 0 Refills, Acute 11/11/23 9:45:00 EDT, 11/04/23 9:45:00 EDT, Capsule, [facility] #[id number], Partial fill upon patient request if the prescription is for a schedule II opioid... Start Date: 11/04/23 Stop Date: 11/11/23 Status: Ordered duloxetine 30 mg oral enteric coated capsule 1 capsule = 30 mg, By Mouth, 2 times a day, do not crush or chew, # 180 capsule, 3 Refills, Maintenance, 12/20/22 17:50:00 EDT, [facility] #[id number], 170, cm, 12/06/22 0:43:00 EDT, Height, 94.4, kg, 11/08/22 14:35:00 EDT, Dry Weight Start Date: 12/20/22 Status: Ordered gabapentin 300 mg oral capsule 300 mg, 1, capsule, By Mouth, 3 times a day, # 270 capsule, Refills 1, Tot. Refills 1, Maintenance,08/11/23 9:29:00 EDT, Route to Pharmacy Electronically, [facility] #[id number], Partial fill upon patient request, 170, cm, 07/23/23 16:32:00 EDT,... Start Date: 08/11/23 Status: Ordered hydroxychloroquine 200 mg oral tablet 1, tablet, By Mouth, 2 times a day, # 60 tablet, Refills 5, Tot. Refills 5, 04/15/23 13:55:00 EST, Route to Pharmacy Electronically, [facility] #[id number], 170, cm, 01/31/23 10:06:00 EDT, Height, 94.4, kg, 11/08/22 14:35:00 EDT, Dry Weight Start Date: 04/15/23 Status: Ordered hydrOXYzine hydrochloride 25 mg oral tablet See Instructions, TAKE 1 TABLET BY MOUTH TWICE DAILY NEEDED FOR ANXIETY, # 60 tablet, 5 Refills,Maintenance, 09/18/23 10:13:00 EDT, [facility] #[id number], 170, cm, 07/23/23 16:32:00 EDT, Height, 100, kg, 04/20/23 21:48:00 EST, Dry Weight Start Date: 09/18/23 Status: Ordered NEBULIZER MACHINE AND TUBING NEBULIZER MACHINE AND TUBING, See Instructions, PRN Wheezing/Shortness of Breath, # 1 each, Refills0, Tot. Refills 0, Maintenance, USE NEEDED FOR WHEEZING DX:, 06/17/23 15:49:00 EST, Supply Start Date: 06/17/23 Status: Ordered predniSONE 20 mg oral tablet 2 tablet = 40 mg, By Mouth, Daily, for 5 days, # 10 tablet, 0 Refills, Acute 11/09/23 9:45:00 EDT, 11/04/23 9:45:00 EDT, Tablet, [facility] #[id number], Partial fill upon patient request if the prescription is for a schedule II opioid drug., 170,... Start Date: 11/04/23 Stop Date: 11/09/23 Status: Ordered risperiDONE 1 mg oral tablet 1 mg, 1, tablet, By Mouth, Daily, # 90 tablet, Refills 1, Tot. Refills 1, Maintenance, 08/11/23 9:29:00 EDT, Route to Pharmacy Electronically, [facility] #[id number], 170, cm, 07/23/23 16:32:00 EDT, Height, 100, kg, 04/20/23 21:48:00 EST, Dry Weight Start Date: 08/11/23 Stop Date: 02/07/24 Status: Ordered Suboxone 8 mg-2 mg Sublingual Film 1 film, Sublingual, 3 times a day, for 14 days, dissolve under the tongue, # 42 film, 0 Refills, Hard Stop 11/25/23 9:01:00 EDT, 11/11/23 9:01:00 EDT, [facility] #[id number], Partial fill upon patient request if the prescription is for a schedule... Start Date: 11/11/23 Stop Date: 11/25/23 Status: Ordered Suboxone 8 mg-2 mg Sublingual Film 1 film, Sublingual, 3 times a day, for 30 days, dissolve under the tongue, # 90 film, 1 Refills, Hard Stop 11/11/23 9:01:00 EDT, 09/12/23 9:01:00 EDT, [facility] #[id number], Partial fill upon patient request if the prescription is for a schedule... Start Date: 09/12/23 Stop Date: 11/11/23 Status: Ordered tiZANidine 2 mg oral tablet 2 mg, 1, tablet, By Mouth, 3 times a day, # 84 tablet, Refills 1, Tot. Refills 1, Maintenance, 09/08/23 18:10:00 EDT, Route to Pharmacy Electronically, [facility] #[id number], Partial fill upon patient request if the prescription is for a schedul... Start Date: 09/08/23 Stop Date: 11/03/23 Status: Ordered tobramycin 0.3% ophthalmic solution 1 drops, Eyes, Both, 4 times a day, for 7 days, # 5 mL, 0 Refills, Acute 11/11/23 9:45:00 EDT, 11/04/23 9:45:00 EDT, Solution, [facility] #[id number], Partial fill upon patient request if the prescription is for a schedule II opioid drug., 1 drop... Start Date: 11/04/23 Stop Date: 11/11/23 Status: Ordered Trelegy Ellipta 200 mcg-62.5 mcg-25 mcg/inh inhalation powder 1 puffs, Inhalation, Daily, at the same time every day, # 3 each, 3 Refills, Maintenance, 07/23/23 16:56:00 EDT, Powder, [facility] #[id number], Partial fill upon patient request if the prescription is for a schedule II opioid drug., 1 puffs Inha... Start Date: 07/23/23 Stop Date: 07/17/24 Status: Ordered Ultram 50 mg oral tablet 1 tablet = 50 mg, By Mouth, Every 12 hours, PRN for pain, # 20 tablet, 0 Refills, Maintenance, 10/14/23 9:32:00 EDT, Tablet, [facility] #[id number], Partial fill upon patient request if the prescription is for a schedule II opioid drug., 170, cm,... Start Date: 10/14/23 Status: Ordered Ventolin HFA 108 mcg/inh inhalation aerosol with adapter 2 puffs, Inhalation, 4 times a day, PRN for wheezing, # 1 each, 3 Refills, Maintenance, 05/28/23 12:34:00 EST, Aerosol, [facility] #[id number], Partial fill upon patient request if the prescription is for a schedule II opioid drug., 170, cm, 04/04... Start Date: 05/28/23 Status: Ordered Voltaren Arthritis Pain 1% topical gel = 4 Gm, Topically, 4 times a day, # 480 Gm, 4 Refills, Maintenance, 07/24/23 14:31:00 EDT, [facility] #[id number], Partial fill upon patient request if the prescription is for a schedule II opioid drug., 4 Gm Topically 4 times a day, 170, cm, /... Start Date: 07/24/23 Status: Ordered [facility] [...] Team Personnel Name: Compa Diane NP Position: [facility] PCO Associate Professional Member Role: PCP Address: Address: [address] [place] [address]- Name: Blaire Iglesias [place] Position: [facility] Office Staff Member Role: Primary Care Nurse Name: Rhiannon Li MA Position: [facility] Office Staff Member Role: Primary Care Nurse Name: Viral Jolly MD Position: [facility] Physician - Behavioral Health Member Role: Lifetime Consulting Physician Address: Address: [address] [place] [id number]- Care Team Related Persons Name: MAIN MOSER Address: home [address] [place] [address] Name: JORGE GARCIA Address: home [address] [place] [address] Name: LOREE SIFUENTES
--- OUTSIDE RECORDS SUMMARY | 2024-03-03 23:39 | XMS_ITS | Continuity of Care Document ---
Author Organization [facility] Address [address] [place] [address]- Care Team Providers Care Senior Quality Control Inspector Name Role Phone Fine LAST SCOURER, Compa Hall Primary Care Physician Encounter [facility] Date(s): 07/24/23 - 08/23/23 [facility] [address] [place] [address]- Allergies, Adverse Reactions, Alerts No Known Allergies [...] 11 Refills, Maintenance, 03/25/23 12:53:00 EST, Solution, [facility] #[id number], 3 mL Inhalation 4 times a da... Start Date: 03/25/23 Status: Ordered Breo Ellipta 100 mcg-25 mcg/inh inhalation powder 1 puffs, Inhalation, Daily, RINSE MOUTH AFTERWARDS., # 1 each, 3 Refills, 11/21/22 10:33:00 EDT, [facility] #[id number], 1 puffs Inhalation Daily,Instr:RINSE MOUTH AFTERWARDS., 170, cm, 11/19/2313:19:00 EDT, Height, 94.4, kg, 11/08/22 14:35:00 E... Start Date: 11/21/22 Status: Ordered cloNIDine 0.1 mg oral tablet 0.05 mg, 0.5, tablet, By Mouth, 4 times a day, PRN, stay hydrated, # 120 tablet, Refills 0, Tot. Refills 0, Maintenance, anxiety, panic, withdrawal symptoms, 08/11/23 9:29:00 EDT, Route to Pharmacy Electronically, [facility] #[id number], Partial... Start Date: 08/11/23 Stop Date: 09/10/23 Status: Ordered duloxetine 30 mg oral enteric coated capsule 1 capsule = 30 mg, By Mouth, 2 times a day, do not crush or chew, # 180 capsule, 3 Refills, Maintenance, 12/20/22 17:50:00 EDT, [facility] #[id number], 170, cm, 12/06/22 0:43:00 EDT, Height, 94.4, kg, 11/08/22 14:35:00 EDT, Dry Weight Start Date: 12/20/22 Status: Ordered gabapentin 300 mg oral capsule 300 mg, 1, capsule, By Mouth, 3 times a day, # 270 capsule, Refills 1, Tot. Refills 1, Maintenance,08/11/23 9:29:00 EDT, Route to Pharmacy Electronically, [facility] #[id number], Partial fill upon patient request, 170, cm, 07/23/23 16:32:00 EDT,... Start Date: 08/11/23 Status: Ordered hydroxychloroquine 200 mg oral tablet 1, tablet, By Mouth, 2 times a day, # 60 tablet, Refills 5, Tot. Refills 5, 04/15/23 13:55:00 EST, Route to Pharmacy Electronically, [facility] #[id number], 170, cm, 01/31/23 10:06:00 EDT, Height, 94.4, kg, 11/08/22 14:35:00 EDT, Dry Weight Start Date: 04/15/23 Status: Ordered hydrOXYzine hydrochloride 25 mg oral tablet 1 tablet = 25 mg, By Mouth, 2 times a day, PRN for anxiety, for 30 days, # 60 tablet, 0 Refills, Acute 09/10/23 9:30:00 EDT, 08/11/23 9:30:00 EDT, Tablet, [facility] #[id number], Partial fill upon patient request if the [...] 1 Refills, Maintenance, 08/11/23 9:31:00 EDT, Tablet, [facility] #[id number], IF NOT COVERED, please use Stunable coupon and allow pt to payOOP; $9.09; ASHLEY [id number]; [facility]; Group [address]; Member... Start Date: 08/11/23 Status: Ordered risperiDONE 1 mg oral tablet 1 mg, 1, tablet, By Mouth, Daily, # 90 tablet, Refills 1, Tot. Refills 1, Maintenance, 08/11/23 9:29:00 EDT, Route to Pharmacy Electronically, [facility] #[id number], 170, cm, 07/23/23 16:32:00 EDT, Height, 100, kg, 04/20/23 21:48:00 EST, Dry Weight Start Date: 08/11/23 Stop Date: 02/07/24 Status: Ordered Suboxone 8 mg-2 mg Sublingual Film 1 film, Sublingual, 3 times a day, dissolve under the tongue, # 90 film, 1 Refills, Maintenance, 07/13/23 11:49:00 EDT, [facility] #[id number], Partial fill upon patient request if the prescription is for a schedule II opioid drug. ALVINA [id number];... Start Date: 07/13/23 Stop Date: 09/11/23 Status: Ordered tiZANidine 2 mg oral tablet 2 mg, 1, tablet, By Mouth, 3 times a day, # 84 tablet, Refills 1, Tot. Refills 1, Maintenance, 07/01/23 16:53:00 EST, Route to Pharmacy Electronically, [facility] #[id number], Partial fill upon patient request if the prescription is for a schedul... Start Date: 07/01/23 Stop Date: 08/26/23 Status: Ordered Trelegy Ellipta 200 mcg-62.5 mcg-25 mcg/inh inhalation powder 1 puffs, Inhalation, Daily, at the same time every day, # 3 each, 3 Refills, Maintenance, 07/23/23 16:56:00 EDT, Powder, [facility] #[id number], Partial fill upon patient request if the prescription is for a schedule II opioid drug., 1 puffs Inha... Start Date: 07/23/23 Stop Date: 07/17/24 Status: Ordered Ventolin HFA 108 mcg/inh inhalation aerosol with adapter 2 puffs, Inhalation, 4 times a day, PRN for wheezing, # 1 each, 3 Refills, Maintenance, 05/28/23 12:34:00 EST, Aerosol, [facility] #[id number], Partial fill upon patient request if the prescription is for a schedule II opioid drug., 170, cm, 04/04... Start Date: 05/28/23 Status: Ordered Voltaren Arthritis Pain 1% topical gel = 4 Gm, Topically, 4 times a day, # 480 Gm, 4 Refills, Maintenance, 07/24/23 14:31:00 EDT, [facility] #[id number], Partial fill upon patient request if the [...] Professional Member Role: PCP Address: Address: [address] [facility] [address]- Name: Blaire Iglesias [place] Position: [facility] RN Member Role: Primary Care Nurse Name: Rhiannon Gibson Position: [facility] RN Member Role: Primary Care Nurse Name: Viral Jolly MD Position: [facility] Physician - Behavioral Health Member Role: Lifetime Consulting Physician Address: Address: [address] [place] [address]- Care Team Related Persons Name: MAIN MOSER Address: home [address] [place] [address] Name: JORGE GARCIA Address: home [address] [place] [address] Name: LOREE SIFUENTES
--- OUTSIDE RECORDS SUMMARY | 2024-03-03 23:39 | XMS_ITS | Continuity of Care Document ---
Author Organization [facility] Address [address] [place] [address]- Care Team Providers Care Sack Lifter Name Role Phone Angela BROWN, Robyn Martinez Primary Care Physician Encounter [id number] Date(s): 05/28/19 - 06/07/19 [facility] [address] [place] [address]- [facility] Attending Physician: Maddie Jones Admitting Physician: AdmtrMaddie Referring Physician: Admtr, Ar8 [...]
--- OUTSIDE RECORDS SUMMARY | 2024-03-03 23:39 | XMS_ITS | Continuity of Care Document ---
Author Organization [facility] [place] Address [address] [place] [address]- Care Team Providers Care Traffic Attendant Name Role Phone Angela BROWN, Robyn Martinez Primary Care Physician Encounter [facility] Date(s): 06/27/20 - 07/27/20 [facility] [address] [place] [address]- Allergies, Adverse Reactions, Alerts Substance Reaction Severity [...] Refills, Maintenance, 06/19/20 16:07:00 EST, [id number], 20, INHALE 2 PUFFS BY MOUTH EVERY 4 TO 6 HOURS NEEDED FOR WHEEZE FOR SHORTNESS... Start Date: 06/19/20 Status: Ordered Suboxone 8 mg-2 mg sublingual film 2.5 FILMS, Sublingual, Daily, [id number], # 75 film, 1 Refills, Maintenance, 04/26/20 16:38:00 EST, [facility] #[id number], 2.5 FILMS Sublingual Daily,Instr:[id number], 163, cm, 04/26/20 14:26:00 EST, Height, 105, [...] erythematosus tumidus(Confirmed) Active Asthma, moderate persistent(Confirmed) Active Prinec's neuroma(Confirmed) Active Polyarthralgia(Confirmed) Active Chronic narcotic use(Confirmed) [...]
--- OUTSIDE RECORDS SUMMARY | 2024-03-03 23:39 | XMS_ITS | Continuity of Care Document ---
Author Organization [facility] Address [address] [place] [address]- Care Team Providers Care Metal Sprayer Machined Parts Name Role Phone Fine HEAT TREATER APPRENTICE, Compa Hall Primary Care Physician ( [phone] Encounter [facility] Date(s): 07/24/23 - 08/23/23 [facility] [address] [place] [address]- Allergies, Adverse Reactions, Alerts No Known Allergies [...] 11 Refills, Maintenance, 03/25/23 12:53:00 EST, Solution, [facility] #[id number], 3 mL Inhalation 4 times a da... Start Date: 03/25/23 Status: Ordered Breo Ellipta 100 mcg-25 mcg/inh inhalation powder 1 puffs, Inhalation, Daily, RINSE MOUTH AFTERWARDS., # 1 each, 3 Refills, 11/21/22 10:33:00 EDT, [facility] #[id number], 1 puffs Inhalation Daily,Instr:RINSE MOUTH AFTERWARDS., 170, cm, 11/19/2313:19:00 EDT, Height, 94.4, kg, 11/08/22 14:35:00 E... Start Date: 11/21/22 Status: Ordered cloNIDine 0.1 mg oral tablet 0.05 mg, 0.5, tablet, By Mouth, 4 times a day, PRN, stay hydrated, # 120 tablet, Refills 0, Tot. Refills 0, Maintenance, anxiety, panic, withdrawal symptoms, 08/11/23 9:29:00 EDT, Route to Pharmacy Electronically, [facility] #[id number], Partial... Start Date: 08/11/23 Stop Date: 09/10/23 Status: Ordered duloxetine 30 mg oral enteric coated capsule 1 capsule = 30 mg, By Mouth, 2 times a day, do not crush or chew, # 180 capsule, 3 Refills, Maintenance, 12/20/22 17:50:00 EDT, [facility] #[id number], 170, cm, 12/06/22 0:43:00 EDT, Height, 94.4, kg, 11/08/22 14:35:00 EDT, Dry Weight Start Date: 12/20/22 Status: Ordered gabapentin 300 mg oral capsule 300 mg, 1, capsule, By Mouth, 3 times a day, # 270 capsule, Refills 1, Tot. Refills 1, Maintenance,08/11/23 9:29:00 EDT, Route to Pharmacy Electronically, [facility] #[id number], Partial fill upon patient request, 170, cm, 07/23/23 16:32:00 EDT,... Start Date: 08/11/23 Status: Ordered hydroxychloroquine 200 mg oral tablet 1, tablet, By Mouth, 2 times a day, # 60 tablet, Refills 5, Tot. Refills 5, 04/15/23 13:55:00 EST, Route to Pharmacy Electronically, [facility] #[id number], 170, cm, 01/31/23 10:06:00 EDT, Height, 94.4, kg, 11/08/22 14:35:00 EDT, Dry Weight Start Date: 04/15/23 Status: Ordered hydrOXYzine hydrochloride 25 mg oral tablet 1 tablet = 25 mg, By Mouth, 2 times a day, PRN for anxiety, for 30 days, # 60 tablet, 0 Refills, Acute 09/10/23 9:30:00 EDT, 08/11/23 9:30:00 EDT, Tablet, [facility] #[id number], Partial fill upon patient request if the [...] 1 Refills, Maintenance, 08/11/23 9:31:00 EDT, Tablet, [facility] #[id number], IF NOT COVERED, please use retsCloud coupon and allow pt to payOOP; $9.09; [facility] [id number]; [facility]; [facility] [address]; Member... Start Date: 08/11/23 Status: Ordered risperiDONE 1 mg oral tablet 1 mg, 1, tablet, By Mouth, Daily, # 90 tablet, Refills 1, Tot. Refills 1, Maintenance, 08/11/23 9:29:00 EDT, Route to Pharmacy Electronically, [facility] #[id number], 170, cm, 07/23/23 16:32:00 EDT, Height, 100, kg, 04/20/23 21:48:00 EST, Dry Weight Start Date: 08/11/23 Stop Date: 02/07/24 Status: Ordered Suboxone 8 mg-2 mg Sublingual Film 1 film, Sublingual, 3 times a day, dissolve under the tongue, # 90 film, 1 Refills, Maintenance, 07/13/23 11:49:00 EDT, [facility] #[id number], Partial fill upon patient request if the prescription is for a schedule II opioid drug. ALVINA [id number];... Start Date: 07/13/23 Stop Date: 09/11/23 Status: Ordered tiZANidine 2 mg oral tablet 2 mg, 1, tablet, By Mouth, 3 times a day, # 84 tablet, Refills 1, Tot. Refills 1, Maintenance, 07/01/23 16:53:00 EST, Route to Pharmacy Electronically, [facility] #[id number], Partial fill upon patient request if the prescription is for a schedul... Start Date: 07/01/23 Stop Date: 08/26/23 Status: Ordered Trelegy Ellipta 200 mcg-62.5 mcg-25 mcg/inh inhalation powder 1 puffs, Inhalation, Daily, at the same time every day, # 3 each, 3 Refills, Maintenance, 07/23/23 16:56:00 EDT, Powder, [facility] #[id number], Partial fill upon patient request if the prescription is for a schedule II opioid drug., 1 puffs Inha... Start Date: 07/23/23 Stop Date: 07/17/24 Status: Ordered Ventolin HFA 108 mcg/inh inhalation aerosol with adapter 2 puffs, Inhalation, 4 times a day, PRN for wheezing, # 1 each, 3 Refills, Maintenance, 05/28/23 12:34:00 EST, Aerosol, [facility] #[id number], Partial fill upon patient request if the prescription is for a schedule II opioid drug., 170, cm, 04/04... Start Date: 05/28/23 Status: Ordered Voltaren Arthritis Pain 1% topical gel = 4 Gm, Topically, 4 times a day, # 480 Gm, 4 Refills, Maintenance, 07/24/23 14:31:00 EDT, [facility] #[id number], Partial fill upon patient request if the [...] Team Personnel Name: Compa Diane NP Position: [facility] PCO Associate Professional Member Role: PCP Address: Address: [address] [facility] [place] [address]- Name: Blaire Iglesias [place] Position: [facility] RN Member Role: Primary Care Nurse Name: Rhiannon Gibson Position: [facility] RN Member Role: Primary Care Nurse Name: Viral Jolly MD Position: [facility] Physician - Behavioral Health Member Role: Lifetime Consulting Physician Address: Address: [address] [place] [id number]- Care Team Related Persons Name: MAIN MOSER Address: home [address] [place] [address] Name: JORGE GARCIA Address: [address] [place] [address] Name: LOREE SIFUENTES
--- OUTSIDE RECORDS SUMMARY | 2024-03-03 23:39 | XMS_ITS | Continuity of Care Document ---
Author Organization [facility] Address [address] [place] [address]- Care Team Providers Care Medical Record Librarians Teacher Name Role Phone Roxi BROWN, Compa Hall Primary Care Physician Encounter [facility] Date(s): 08/19/23 - 09/18/[address] [address] Allergies, Adverse Reactions, Alerts No Known Allergies [...] 11 Refills, Maintenance, 03/25/23 12:53:00 EST, Solution, [facility] #[id number], 3 mL Inhalation 4 times a da... Start Date: 03/25/23 Status: Ordered Breo Ellipta 100 mcg-25 mcg/inh inhalation powder 1 puffs, Inhalation, Daily, [employer]., # 1 each, 3 Refills, 11/21/22 10:33:00 EDT, [facility] #[id number], 1 puffs Inhalation Daily,Instr:[employer]., 170, cm, 11/19/2313:19:00 EDT, Height, 94.4, kg, 11/08/22 14:35:00 E... Start Date: 11/21/22 Status: Ordered cloNIDine 0.1 mg oral tablet 0.05 mg, 0.5, tablet, By Mouth, 4 times a day, PRN, stay hydrated, # 120 tablet, Refills 5, Tot. Refills 5, Maintenance, anxiety, panic, withdrawal symptoms, 09/18/23 10:13:00 EDT, Route to Pharmacy Electronically, [facility] #[id number], Partial... Start Date: 09/18/23 Stop Date: 03/16/24 Status: Ordered duloxetine 30 mg oral enteric coated capsule 1 capsule = 30 mg, By Mouth, 2 times a day, do not crush or chew, # 180 capsule, 3 Refills, Maintenance, 12/20/22 17:50:00 EDT, [facility] #[id number], 170, cm, 12/06/22 0:43:00 EDT, Height, 94.4, kg, 11/08/22 14:35:00 EDT, Dry Weight Start Date: 12/20/22 Status: Ordered gabapentin 300 mg oral capsule 300 mg, 1, capsule, By Mouth, 3 times a day, # 270 capsule, Refills 1, Tot. Refills 1, Maintenance,08/11/23 9:29:00 EDT, Route to Pharmacy Electronically, [facility] #[id number], Partial fill upon patient request, 170, cm, 07/23/23 16:32:00 EDT,... Start Date: 08/11/23 Status: Ordered hydroxychloroquine 200 mg oral tablet 1, tablet, By Mouth, 2 times a day, # 60 tablet, Refills 5, Tot. Refills 5, 04/15/23 13:55:00 EST, Route to Pharmacy Electronically, [facility] #[id number], 170, cm, 01/31/23 10:06:00 EDT, Height, 94.4, kg, 11/08/22 14:35:00 EDT, Dry Weight Start Date: 04/15/23 Status: Ordered hydrOXYzine hydrochloride 25 mg oral tablet See Instructions, TAKE 1 TABLET BY MOUTH TWICE DAILY NEEDED FOR ANXIETY, # 60 tablet, 5 Refills,Maintenance, 09/18/23 10:13:00 EDT, [facility] #[id number], 170, cm, 07/23/23 16:32:00 EDT, Height, 100, [...] 08/11/23 9:29:00 EDT, Route to Pharmacy Electronically, [facility] #[id number], 170, cm, 07/23/23 16:32:00 EDT, Height, 100, kg, 04/20/23 21:48:00 EST, Dry Weight Start Date: 08/11/23 Stop Date: 02/07/24 Status: Ordered Suboxone 8 mg-2 mg Sublingual Film 1 film, Sublingual, 3 times a day, dissolve under the tongue, # 90 film, 1 Refills, Maintenance, 09/12/23 9:01:00 EDT, [facility] #[id number], Partial fill upon patient request if the prescription is for a schedule II opioid drug. ALVINA [id number];... Start Date: 09/12/23 Stop Date: 11/11/23 Status: Ordered tiZANidine 2 mg oral tablet 2 mg, 1, tablet, By Mouth, 3 times a day, # 84 tablet, Refills 1, Tot. Refills 1, Maintenance, 09/08/23 18:10:00 EDT, Route to Pharmacy Electronically, [facility] #[id number], Partial fill upon patient request if the prescription is for a schedul... Start Date: 09/08/23 Stop Date: 11/03/23 Status: Ordered Trelegy Ellipta 200 mcg-62.5 mcg-25 mcg/inh inhalation powder 1 puffs, Inhalation, Daily, at the same time every day, # 3 each, 3 Refills, Maintenance, 07/23/23 16:56:00 EDT, Powder, [facility] #[id number], Partial fill upon patient request if the prescription is for a schedule II opioid drug., 1 puffs Inha... Start Date: 07/23/23 Stop Date: 07/17/24 Status: Ordered Ventolin HFA 108 mcg/inh inhalation aerosol with adapter 2 puffs, Inhalation, 4 times a day, PRN for wheezing, # 1 each, 3 Refills, Maintenance, 05/28/23 12:34:00 EST, Aerosol, [facility] #[id number], Partial fill upon patient request if the prescription is for a schedule II opioid drug., 170, cm, 04/04... Start Date: 05/28/23 Status: Ordered Voltaren Arthritis Pain 1% topical gel = 4 Gm, Topically, 4 times a day, # 480 Gm, 4 Refills, Maintenance, 07/24/23 14:31:00 EDT, [facility] #[id number], Partial fill upon patient request if the [...] Team Personnel Name: Compa Diane NP Position: [facility] PCO Associate Professional Member Role: PCP Address: Address: [address] [place] [address] [place] [address]- Name: Blaire Iglesias [place] Position: [facility] AMB MA Member Role: Primary Care Nurse Name: Rhiannon Li [place] Position: [facility] Office Staff Member Role: Primary Care Nurse Name: Viral Jolly MD Position: [facility] Physician - Behavioral Health Member Role: Lifetime Consulting Physician Address: Address: [address] [place] [address]- Care Team Related Persons Name: MAIN MOSER Address: home [address] [place] [address] Name: JORGE GARCIA Address: home [address] [place] [address] Name: LOREE SIFUENTES
--- OUTSIDE RECORDS SUMMARY | 2024-03-03 23:39 | XMS_ITS | Continuity of Care Document ---
Author Organization [facility] Address [address] [place] [address]- Care Team Providers Care Human Resource Consultant Name Role Phone Gen BROWN, Claribel Primary Care Physician Encounter [facility] Date(s): 05/01/22 - 05/01/[address] [address]- Discharge Disposition: A-D/C Home Attending Physician: John [...] 11 Refills, Maintenance, 08/22/20 13:04:00 EDT, Solution, [facility]/pharmacy #[id number], 3 mL Inhalation 4 times a day,PRN:Whe... Start Date: 08/22/20 Status: Ordered Breo Ellipta 100 mcg-25 mcg/inh inhalation powder 1 puffs, Inhalation, Daily, [employer]., # 60 each, 1 Refills, [facility] [id number], 30, INHALE 1 PUFF BY MOUTH EVERY DAY. [employer]., 170, cm, 03/07/21 11:09:00 EDT, Height, 107.3, kg, 06/22/20 13:29:00 EST, Dry Weight Start Date: 11/12/21 Status: Ordered diclofenac 1% topical gel = 2 Gm, Topically, 2 times a day, # 100 Gm, 2 Refills, 01/22/22 17:37:00 EDT, [facility] #[id number], 25, 2 Gm Topically 2 times a day, 170, cm, 03/07/21 11:09:00 EDT, Height, 107.3, kg, 06/22/20 13:29:00 EST, Dry Weight Start Date: 01/22/22 Status: Ordered duloxetine 30 mg oral enteric coated capsule 1 capsule = 30 mg, By Mouth, 2 times a day, do not crush or chew, # 180 capsule, 3 Refills, Maintenance, 02/19/22 14:28:00 EDT, [facility] #[id number], 170, cm, 03/07/21 11:09:00 EDT, Height, 107.3, kg, 06/22/20 13:29:00 EST, Dry Weight Start Date: 02/19/22 Status: Ordered famotidine 20 mg oral tablet 20 mg, 1, tablet, By Mouth, Daily, OV 5-6-20, # 30 tablet, Refills 5, Tot. Refills 5, Maintenance, 08/21/20 12:25:00 EDT, Route to Pharmacy Electronically, [facility]/pharmacy #[id number], 170, cm, 08/16/20 15:32:00 EDT, Height, 107.3, kg, 06/22/20 13:29:00 EST, D... Start Date: 08/21/20 Status: Ordered gabapentin 300 mg oral capsule 300 mg, 1, capsule, By Mouth, 3 times a day, # 270 capsule, Refills 1, Tot. Refills 1, Maintenance,08/21/21 14:14:00 EDT, Route to Pharmacy Electronically, [facility] #[id number], Partial fill upon patient request, 170, cm, 03/07/21 11:09:00 EDT... Start Date: 08/21/21 Status: Ordered gabapentin 300 mg oral capsule 300 mg, 1, capsule, By Mouth, 3 times a day, # 270 capsule, Refills 3, Tot. Refills 3, Maintenance,02/19/22 14:28:00 EDT, Route to Pharmacy Electronically, [facility] #[id number], Partial fill upon patient request, 170, cm, 03/07/21 11:09:00 EDT... Start Date: 02/19/22 Status: Ordered hydroxychloroquine 200 mg oral tablet 1, tablet, By Mouth, 2 times a day, # 60 tablet, Refills 5, Route to Pharmacy Electronically, [facility] [id number], 170, cm, 03/07/21 11:09:00 EDT, Height, 107.3, [...] 18 Gm, 5 Refills, 03/20/22 16:08:00 EST, [facility] #[id number], 2 puffs Inhalation Every 4 to 6 hours,PRN: NEEDED FOR SHORTNESS OF BREATH OR WHEEZING... Start Date: 03/20/22 Status: Ordered risperiDONE 1 mg oral tablet 1 mg, 1, tablet, By Mouth, Daily, # 90 tablet, Refills 3, Tot. Refills 3, Maintenance, 02/19/22 14:27:00 EDT, Route to Pharmacy Electronically, [facility] #[id number], 170, cm, 03/07/21 11:09:00EDT, Height, 107.3, kg, 06/22/20 13:29:00 EST, Dry... Start Date: 02/19/22 Stop Date: 02/14/23 Status: Ordered Suboxone 8 mg-2 mg Sublingual Film 1 film, Sublingual, 3 times a day, dissolve under the tongue, # 21 film, 0 Refills, Maintenance, 04/05/22 8:36:00 EST, [facility] #[id number], Partial fill upon patient request if the prescription is for a schedule II opioid drug. ALVINA [id number],... Start Date: 04/05/22 Stop Date: 04/12/22 Status: Ordered Suboxone 8 mg-2 mg Sublingual Film 1 film, Sublingual, 3 times a day, dissolve under the tongue, # 90 film, 1 Refills, Maintenance, 02/08/22 13:04:00 EDT, [facility] #[id number], Partial fill upon patient request if the prescription is for a schedule II opioid drug. ALVINA [id number],... Start Date: 02/08/22 Stop Date: 04/09/22 Status: Ordered Suboxone 8 mg-2 mg Sublingual Film 1 film, Sublingual, 3 times a day, dissolve under the tongue, # 90 film, 1 Refills, Maintenance, 12/10/21 14:40:00 EDT, [facility] #[id number], Partial fill upon patient request if the prescription is for a schedule II opioid drug. ALVINA [id number],... Start Date: 12/10/21 Stop Date: 02/08/22 Status: Ordered Suboxone 8 mg-2 mg Sublingual Film 1 film, Sublingual, 3 times a day, dissolve under the tongue, # 21 film, 0 Refills, Maintenance, 04/12/22 14:58:00 EST, [facility] #[id number], Partial fill upon patient request if the prescription is for a schedule II opioid drug. ALVINA [id number],... Start Date: 04/12/22 Stop Date: 04/19/22 Status: Ordered Suboxone 8 mg-2 mg sublingual film 3 film, Sublingual, Daily, [id number], # 90 film, 1 Refills, Maintenance, 10/21/21 9:55:00 EDT, [facility] #[id number], 3 film Sublingual Daily,x30 days,Instr:[id number], 170, cm, 03/07/21 11:09:00 EDT, Height, 107.3, kg, 06/22/20 13:29:00 EST, Dry... Start Date: 10/21/21 Stop Date: 12/20/21 Status: Ordered traZODone 50 mg oral tablet 50 mg, 1, tablet, By Mouth, Daily at bedtime, PRN, as needed, # 90 tablet, Refills 3, Tot. Refills 3, Maintenance, Sleep, 02/19/22 14:27:00 EDT, Route to Pharmacy Electronically, [facility][id number], 170, cm, 03/07/21 11:09:00 EDT, Height, 107... Start Date: 02/19/22 Status: Ordered Vitamin D3 1000 intl units oral tablet 1 tablet = 1,000 International_Units, By Mouth, Daily, # 30 tablet, 11 Refills, Maintenance, 10/04/19 11:54:00 EDT, Tablet, [facility]/pharmacy #0969, 163, cm, 10/04/19 11:27:00 EDT, [...] recent to oldest [Reference Range]: 1 Height 175 cm (05/01/22 2:41 PM) Weight 75 kg (05/01/22 2:41 PM) Oxygen Saturation [94-100 %] 98 % (05/01/22 4:00 PM) Pulse Rate [55-90 bpm] 101 bpm *H* (05/01/22 4:00 PM) Blood Pressure [90-138/55-84 mm Hg] 141/ 101mm Hg *H* (05/01/22 4:00 PM) Respiratory Rate [16-30 br/min] 20 br/mi n (05/01/22 4:00 PM) Temperature [96.8-100.4 DegF] 98.2 DegF (05/01/22 4:00 PM) Mode of Delivery (Oxygen) Room air (05/01/22 4:00 PM) Temperature Route Temporal (05/01/22 4:00 PM) Dry Weight 75 kg (05/01/22 2:41 PM) Social History Social History Type Response Smoking Status Current every day antony gomez entered on: 09/29/14 Sex Note * John Mckeon MD: PERFORM, SIGN, VERIFY Event Display: Patient Education Handout Authored Date: [id number] * John Mckeon MD: PERFORM Event Display: Patient Education Leaflets Authored Date: [id number] Alcohol Intoxication ?? [id number] Alcohol Intoxication Alcohol intoxication is very serious. It occurs when you drink alcohol faster than your liver can break it down. Severe intoxication is a medical emergency. It's also called alcohol overdose or alcohol poisoning. It can lead to . Here are some magana facts: ??? It can take 10 minutes or more??to start??to??feel the effects of a drink. So it's easy to drink more than you planned. Binge drinking can lead to an alcohol overdose. Binge drinking is having: o5 or more drinks over a short time for men o 4 or more drinks over a short time for women ??? One drink may be more than 1 serving of alcohol. In some cases, a drink can be 2 to 4 servings. This depends on the type of drink. ??? It takes about 1 hour for your body to break down 1 serving of alcohol. If you have more than 1 drink, it can take a few hours or more. ??? People with alcohol abuse disorders are more likely to get alcohol poisoning. But it can happen to anyone who drinks too much alcohol. Even a first-time drinker is at risk. ??? Many things affect how drinks will affect you. These include: o If you've eaten o How fast you drink o Your weight o How much you normally drink (or not)o Medicines you are taking o If you have a chronic disease o If you are male or female o How old you are Symptoms of alcohol intoxication Mild intoxication ??? Feel more relaxed, less tense ??? Slightly slurred speech ??? Sleepiness ??? Poor motor skills Moderate intoxication ??? Changing behavior, aggression, depression ??? Poor judgment ??? Confusion ??? Trouble focusing ??? Poor balance and coordination ??? Worsening slurred speech Severe intoxication ??? Vomiting ??? Seizures ??? Fainting or passing out (unconscious) ??? Cold, clammy skin ??? Slow or irregular breathing ??? Low body temperature (hypothermia) ??? Coma ?? Health effects Alcohol causes health problems.??This can happen after only drinking a little. There is no set number of drinks or amount of alcohol that's too much.??How much you drink at one time affects your health. And so does drinking often. Alcohol affects your whole body in these ways: ??? Brain.??Alcohol can harm parts of the brain that affect your balance, memory, thinking, and feelings. It can cause memory loss, blackouts, depression, agitation, sleep cycle changes, and seizures. These changes may or may not go away. ??? Heart and vascular system.??Alcohol can damage heart muscle. This can cause the heart muscle to weaken and stretch (cardiomyopathy). This can lead to: o Trouble breathing o Irregular heartbeat o Atrial fibrillation o Leg swelling o Heart failure Alcohol also makes the blood vessels stiffen. This causes high blood pressure. All of these problems raise your risk for heart attacks or strokes. ??? Liver.??Alcohol causes fat to build up in the liver. This affects how the liver works. And it raises the risk for hepatitis. This condition leads to belly pain, appetite loss, yellow skin and eyes (jaundice), and bleeding problems. It also leads to harmful changes in the liver. These include??liver fibrosis and cirrhosis. This can affect your ability to fight off infections. These liver changes stop it from removing toxins in your blood. This can cause a brain disease called encephalopathy. ??? Pancreas.??Alcohol can cause inflammation of the pancreas (pancreatitis). It can lead to belly pain, fever, and diabetes. ??? Immune system.??Alcohol weakens your immune system. This makes it harder to fight off infections and colds. You'll also have a higherrisk of some infections. ??? Cancer risk.??Alcohol raises your risk of some types of cancer. They include cancer of the: o Mouth o Esophagus o Pharynx o Larynx o Liver o Breast ? Sexual function.??Alcohol abuse can also lead to sexual problems. There is no safe level of alcohol use for people who are or thinking of getting . Alcohol use in may cause lifelong harm to the baby. So alcohol should be avoided. It can also cause a group of defects called alcohol spectrum disorder. These defects can include physical problems. And also behavior and learning problems. ?? Home care for alcohol intoxication Follow these tips to care for yourself at home: ??? Don't drink any more alcohol. ??? Don't drive??until all effects of the alcohol have worn off. ??? Don't use machinery that can cause injuries. ??? Get lots of rest over the next few days. ??? Drink plenty of water and other drinks that don't have alcohol. ??? Try to eat regular meals. If you have been drinking a lot every day, you may have alcohol withdrawal. Symptoms often last 3 to 4 days. They may include: ??? Nervousness ??? Shakiness ??? Nausea ??? Sweating ??? Sleeplessness They may also include severe, life-threatening symptoms. These are known as delirium tremens (DTs).DTs typically begin between 48 and 96 hours after the last drink and last 1 to 5 days. They include: ??? Seizures ??? Confusion ??? Seeing or hearing things that are not there (hallucinations) Alcohol withdrawal can cause . Call your healthcare provider before you stop drinking. This isespecially important if you've had DTs during past alcohol withdrawals. They may be able to help you with medicine. They can also refer you to an inpatient detox program. Or stay with family or friends who know when to call for medical help and can support you. If you have severe symptoms, call your provider or call 911 for help (see below). ?? Follow-up care These groups can help you and your loved one: ??? Alcoholics Anonymous (A.A.). Gives support through a self-help fellowship. ?? Find A.A. meetings near you at www.aa.org. ??? Cathy. ?? Gives support to families at www.al-anon.org . Or call 857-734-8669. ??? SMART Recovery ( Self- Management and Recovery Training). A nationwide abstinence-oriented support group for people with addictive issues. This free program is focused on motivation to change, urge control, and living a balanced life. For more information and meetings near you, go to www.[employer].org/ ??? Substance Abuse and Mental Health Services Administration (SAMHSA) Treatment [employer]. Free information on treatment resources in your area at https://findtreatment.gov/. Or call 091-834-8464. Call 911 Call 911 if any of these occur: ??? Trouble breathing or slow irregular breathing ??? Chest pain ??? Sudden weakness on 1 side of your body or sudden trouble speaking ??? Heavy bleeding or vomiting blood ??? Very sleepy or having trouble waking up ??? Fainting ??? Fast heart rate ??? Seizure ?? When to get medical advice Call your healthcare provider right away if any of these occur: ??? Severe shakiness? Fever of100.4??F (38??C) or higher, or as advised by your provider ??? Confusion or hallucinations ??? Painin your upper belly that gets worse ??? Repeated vomiting ?? Last Reviewed Date: 2021 ?? [id number] [employer]. All rights reserved. This information is not intended as a substitute for professional medical care. Always follow your healthcare professional's instructions. ?? * Mike KU, John Alonzo: PERFORM Event Display: Patient Education Leaflets Authored Date: [id number] Adjustment Disorder ?? [id number] Adjustment Disorder Life changes???work, family, parents, children???each can cause a great deal of stress in life. An adjustment disorder means you have trouble dealing with change and stress. This problem can have serious results. You may feel helpless or depressed. Or you may make bad decisions. You may even feel like you want to hurt yourself. Adjustment disorder can cause anxiety or depression. It's triggered by stresses such as: ??? of a loved one ??? Divorce ??? Marriage ??? General life changes such as changing or leaving a job ??? Moving ??? Illness or another health issue for you or a family member ??? Sex ??? Money Symptoms may include: ??? Sadness or crying ??? Anxiety ??? Insomnia ??? Poor concentration ??? Trouble doing simple things ??? New problems at work or with family or friends ??? Loss of self-esteem ??? Sense of hopelessness ??? Feeling trapped or cut off from others With this condition, it's common to feel sad, guilty, hopeless, and restless. These feelings may continue for weeks or months. It can be helpful to identify what's causing the additional stress. Thentake steps to get extra support. If new stressful events don't happen, it's likely that you will gradually start feeling better. Home care ??? If you have been given a prescription for medicine,??take it as directed. Don't change or stop your medicine without talking with your healthcare provider. ??? Talk about your feelings and thoughts with trusted family or friends who understand and support you. ??? Consider short-term in- person or online professional therapy. Talk with your healthcare provider to learn more. ?? Follow-up care Follow up with your healthcare provider, or therapist as advised. Let them know if this condition doesn't improve or gets worse. ?? Crisis care If you are at immediate risk of harming yourself or others, call or text [phone]. You will be connectedto trained crisis counselors at the Suicide Prevention Lifeline. An online chat option is also available at www.suicidepreventionlifeline.org. Lifeline is free and available 25/11. ?? When to seek medical advice Call your healthcare provider right away if any of these happen: ??? Depression or anxiety gets worse ??? Feeling out of control ??? Thoughts of harming yourself or another ??? Being unable to care for yourself ?? Last Reviewed Date: 2021 ?? [employer]. All rights reserved. This information is not intended as a substitute for professional medical care. Always follow your healthcare professional's instructions. ?? Patient Care team information Care Team Personnel Name: Blaire Crandall Position: [facility] RN Member Role: Primary Care Nurse Name: Rhiannon Gibson Position: [facility] RN Member Role: Primary Care Nurse Name: Claribel Blevins NP Position: [facility] PCO Associate Professional Member Role: PCP Address: Address: [address] [place] [address]- [place] Name: Viral Jolly MD Position: [facility] Psychiatry MD Member Role: Lifetime Consulting Physician Address: Address: [address] [place] [address]- Name: John Mckeon MD Position: [facility] ED Medicine MD Member Role: Admitting Physician Address: Address: [address] [place] [address]- Name: Jojo Schmidt RN Position: [facility] ED RN W/OE and Tasks Member Role: Patient Care Provider Care Team Related Persons Name: MAIN MOSER Address: home [address] [place] [address] Name: JORGE GARCIA Address: home [address] [place] [address]
--- OUTSIDE RECORDS SUMMARY | 2024-03-03 23:39 | XMS_ITS | Continuity of Care Document ---
Author Organization [facility] Cheryl Address [address] [place] [address]- Care Team Providers Care Fish Hatchery Inspector Name Role Phone Angela BROWN, Robyn Martinez Primary Care Physician Encounter [facility] Date(s): 07/21/19 - 07/31/19 [facility] [place] [address] [place] [address]- [facility] Attending Physician: Maddie Jones Admitting Physician: AdmMaddie [...]
--- OUTSIDE RECORDS SUMMARY | 2024-03-03 23:39 | XMS_ITS | Continuity of Care Document ---
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 Start Date: 08/22/20 Status: Ordered Breo Ellipta 100 mcg-25 mcg/inh inhalation powder 1 puffs, Inhalation, Daily, [employer]., # 60 each, 1 Refills, [id number], 30, INHALE 1 PUFF BY MOUTH EVERY DAY. [employer]., 170, cm, 03/07/21 11:09:00 EDT, Height, 107.3, kg, 06/22/20 13:29:00 EST, Dry Weight Start Date: 11/12/21 Status: Ordered diclofenac 1% topical gel = 2 Gm, Topically, 2 times a day, # 100 Gm, 2 Refills, 05/16/22 16:23:00 EST, [email or web address] #[id number], 25, 2 Gm Topically 2 times a day, 175, cm, 05/01/22 15:32:00 EST, Height, 75, kg, 05/01/22 15:32:00 EST, Dry Weight Start Date: 05/16/22 Status: Ordered duloxetine 30 mg oral enteric coated capsule 1 capsule = 30 mg, By Mouth, 2 times a day, do not crush or chew, # 180 capsule, 3 Refills, Maintenance, 02/19/22 14:28:00 EDT, [facility] #[id number], 170, cm, 03/07/21 11:09:00 EDT, Height, 107.3, [...] Maintenance,08/21/21 14:14:00 EDT, Route to Pharmacy Electronically, [facility] #[id number], Partial fill upon patient request, 170, cm, 03/07/21 11:09:00 EDT... Start Date: 08/21/21 Status: Ordered gabapentin 300 mg oral capsule 300 mg, 1, capsule, By Mouth, 3 times a day, # 270 capsule, Refills 3, Tot. Refills 3, Maintenance,02/19/22 14:28:00 EDT, Route to Pharmacy Electronically, [email or web address] #[id number], Partial fill upon patient request, 170, cm, 03/07/21 11:09:00 EDT... Start Date: 02/19/22 Status: Ordered hydroxychloroquine 200 mg oral tablet 1, tablet, By Mouth, 2 times a day, # 60 tablet, Refills 5, Tot. Refills 5, 05/16/22 16:23:00 EST, Route to Pharmacy Electronically, [email or web address] #[id number], 175, cm, 05/01/22 15:32:00 EST, Height, 75, [...] 18 Gm, 5 Refills, 03/20/22 16:08:00 EST, [email or web address] #[id number], 2 puffs Inhalation Every 4 to 6 hours,PRN: NEEDED FOR SHORTNESS OF BREATH OR WHEEZING... Start Date: 03/20/22 Status: Ordered risperiDONE 1 mg oral tablet 1 mg, 1, tablet, By Mouth, Daily, # 90 tablet, Refills 3, Tot. Refills 3, Maintenance, 02/19/22 14:27:00 EDT, Route to Pharmacy Electronically, [email or web address] #[id number], 170, cm, 03/07/21 11:09:00EDT, Height, 107.3, kg, 06/22/20 13:29:00 EST, Dry... Start Date: 02/19/22 Stop Date: 02/14/23 Status: Ordered Suboxone 8 mg-2 mg Sublingual Film 1 film, Sublingual, 3 times a day, dissolve under the tongue, # 21 film, 0 Refills, Maintenance, 04/05/22 8:36:00 EST, [email or web address] #[id number], Partial fill upon patient request if the prescription is for a schedule II opioid drug. ALVINA [id number],... Start Date: 04/05/22 Stop Date: 04/12/22 Status: Ordered Suboxone 8 mg-2 mg Sublingual Film 1 film, Sublingual, 3 times a day, dissolve under the tongue, # 90 film, 1 Refills, Maintenance, 02/08/22 13:04:00 EDT, [email or web address] #[id number], Partial fill upon patient request if the prescription is for a schedule II opioid drug. ALVINA [id number],... Start Date: 02/08/22 Stop Date: 04/09/22 Status: Ordered Suboxone 8 mg-2 mg Sublingual Film 1 film, Sublingual, 3 times a day, dissolve under the tongue, # 90 film, 1 Refills, Maintenance, 05/10/22 14:12:00 EST, [email or web address] #[id number], Partial fill upon patient request if the prescription is for a schedule II opioid drug. ALVINA [id number],... Start Date: 05/10/22 Stop Date: 07/09/22 Status: Ordered Suboxone 8 mg-2 mg Sublingual Film 1 film, Sublingual, 3 times a day, dissolve under the tongue, # 90 film, 1 Refills, Maintenance, 12/10/21 14:40:00 EDT, [email or web address] #[id number], Partial fill upon patient request if the prescription is for a schedule II opioid drug. ALVINA [id number],... Start Date: 12/10/21 Stop Date: 02/08/22 Status: Ordered Suboxone 8 mg-2 mg Sublingual Film 1 film, Sublingual, 3 times a day, dissolve under the tongue, # 21 film, 0 Refills, Maintenance, 04/12/22 14:58:00 EST, [email or web address] #[id number], Partial fill upon patient request if the prescription is for a schedule II opioid drug. ALVINA [id number],... Start Date: 04/12/22 Stop Date: 04/19/22 Status: Ordered Suboxone 8 mg-2 mg sublingual film 3 film, Sublingual, Daily, [id number], # 90 film, 1 Refills, Maintenance, 10/21/21 9:55:00 EDT, [email or web address] #[id number], 3 film Sublingual Daily,x30 days,Instr:[id number], 170, cm, 03/07/21 11:09:00 EDT, Height, 107.3, kg, 06/22/20 13:29:00 EST, Dry... Start Date: 10/21/21 Stop Date: 12/20/21 Status: Ordered traZODone 50 mg oral tablet 50 mg, 1, tablet, By Mouth, Daily at bedtime, PRN, as needed, # 90 tablet, Refills 3, Tot. Refills 3, Maintenance, Sleep, 02/19/22 14:27:00 EDT, Route to Pharmacy Electronically, [facility]#[id number], 170, cm, 03/07/21 11:09:00 EDT, Height, 107... Start Date: 02/19/22 Status: Ordered Vitamin D3 1000 intl units oral tablet 1 tablet = 1,000 International_Units, By Mouth, Daily, # 30 tablet, 11 Refills, Maintenance, 10/04/19 11:54:00 EDT, Tablet, [facility]/pharmacy #0969, 163, cm, 10/04/19 11:27:00 EDT, Height, [...] Care Team Personnel Name: Blaire Crandall Position: [facility] RN Member Role: Primary Care Nurse Name: Rhiannon Gibson Position: [facility] RN Member Role: Primary Care Nurse Name: Claribel Blevins NP Position: [facility] PCO Associate Professional Member Role: PCP Address: Address: [address] [place] [address]- [place] Name: Viral Jolly MD Position: [facility] Psychiatry MD Member Role: Lifetime Consulting Physician Address: Address: [address] [place] [address]- Care Team Related Persons Name: MAIN MOSER Address: home [address] [place] [address] Name: JORGE GARCIA Address: home [address] [place] [address]
--- OUTSIDE RECORDS SUMMARY | 2024-03-03 23:39 | XMS_ITS | Continuity of Care Document ---
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 [employer]., 170, cm, 03/07/21 11:09:00 EDT, Height, 107.3, kg, 06/22/20 13:29:00 EST, Dry Weight Start Date: 11/12/21 Status: Ordered diclofenac 1% topical gel = 2 Gm, Topically, 2 times a day, # 100 Gm, 2 Refills, 05/16/22 16:23:00 EST, [facility] #[id number], 25, 2 Gm Topically 2 times a day, 175, cm, 05/01/22 15:32:00 EST, Height, 75, kg, 05/01/22 15:32:00 EST, Dry Weight Start Date: 05/16/22 Status: Ordered duloxetine 30 mg oral enteric coated capsule 1 capsule = 30 mg, By Mouth, 2 times a day, do not crush or chew, # 180 capsule, 3 Refills, Maintenance, 02/19/22 14:28:00 EDT, [facility] #[id number], 170, cm, 03/07/21 11:09:00 EDT, Height, 107.3, kg, 06/22/20 13:29:00 EST, Dry Weight Start Date: 02/19/22 Status: Ordered famotidine 20 mg oral tablet 20 mg, 1, tablet, By Mouth, Daily, OV 5-6-20, # 30 tablet, Refills 5, Tot. Refills 5, Maintenance, 08/21/20 12:25:00 EDT, Route to Pharmacy Electronically, [facility]/pharmacy #[id number], 170, cm, 08/16/20 15:32:00 EDT, Height, 107.3, kg, 06/22/20 13:29:00 EST, D... Start Date: 08/21/20 Status: Ordered gabapentin 300 mg oral capsule 300 mg, 1, capsule, By Mouth, 3 times a day, # 270 capsule, Refills 1, Tot. Refills 1, Maintenance,08/21/21 14:14:00 EDT, Route to Pharmacy Electronically, [facility] #[id number], Partial fill upon patient request, 170, cm, 03/07/21 11:09:00 EDT... Start Date: 08/21/21 Status: Ordered gabapentin 300 mg oral capsule 300 mg, 1, capsule, By Mouth, 3 times a day, # 270 capsule, Refills 3, Tot. Refills 3, Maintenance,02/19/22 14:28:00 EDT, Route to Pharmacy Electronically, [facility] #[id number], Partial fill upon patient request, 170, cm, 03/07/21 11:09:00 EDT... Start Date: 02/19/22 Status: Ordered hydroxychloroquine 200 mg oral tablet 1, tablet, By Mouth, 2 times a day, # 60 tablet, Refills 5, Tot. Refills 5, 05/16/22 16:23:00 EST, Route to Pharmacy Electronically, [facility] #[id number], 175, cm, 05/01/22 15:32:00 EST, Height, 75, [...] 18 Gm, 5 Refills, 03/20/22 16:08:00 EST, [facility] #[id number], 2 puffs Inhalation Every 4 to 6 hours,PRN: NEEDED FOR SHORTNESS OF BREATH OR WHEEZING... Start Date: 03/20/22 Status: Ordered risperiDONE 1 mg oral tablet 1 mg, 1, tablet, By Mouth, Daily, # 90 tablet, Refills 3, Tot. Refills 3, Maintenance, 02/19/22 14:27:00 EDT, Route to Pharmacy Electronically, [facility] #[id number], 170, cm, 03/07/21 11:09:00EDT, Height, 107.3, kg, 06/22/20 13:29:00 EST, Dry... Start Date: 02/19/22 Stop Date: 02/14/23 Status: Ordered Suboxone 8 mg-2 mg Sublingual Film 1 film, Sublingual, 3 times a day, dissolve under the tongue, # 21 film, 0 Refills, Maintenance, 04/05/22 8:36:00 EST, [facility] #[id number], Partial fill upon patient request if the prescription is for a schedule II opioid drug. ALVINA [id number],... Start Date: 04/05/22 Stop Date: 04/12/22 Status: Ordered Suboxone 8 mg-2 mg Sublingual Film 1 film, Sublingual, 3 times a day, dissolve under the tongue, # 90 film, 1 Refills, Maintenance, 02/08/22 13:04:00 EDT, [facility] #[id number], Partial fill upon patient request if the prescription is for a schedule II opioid drug. ALVINA [id number],... Start Date: 02/08/22 Stop Date: 04/09/22 Status: Ordered Suboxone 8 mg-2 mg Sublingual Film 1 film, Sublingual, 3 times a day, dissolve under the tongue, # 90 film, 1 Refills, Maintenance, 05/10/22 14:12:[id number], Partial fill upon patient request if the prescription is for a schedule II opioid drug. ALVINA [id number],... Start Date: 05/10/22 Stop Date: 07/09/22 Status: Ordered Suboxone 8 mg-2 mg Sublingual Film 1 film, Sublingual, 3 times a day, dissolve under the tongue, # 90 film, 1 Refills, Maintenance, 12/10/21 14:40:00 EDT, [facility] #[id number], Partial fill upon patient request if the prescription is for a schedule II opioid drug. ALVINA [id number],... Start Date: 12/10/21 Stop Date: 02/08/22 Status: Ordered Suboxone 8 mg-2 mg Sublingual Film 1 film, Sublingual, 3 times a day, dissolve under the tongue, # 21 film, 0 Refills, Maintenance, 04/12/22 14:58:00 EST, [facility] #[id number], Partial fill upon patient request if the prescription is for a schedule II opioid drug. ALVINA [id number],... Start Date: 04/12/22 Stop Date: 04/19/22 Status: Ordered Suboxone 8 mg-2 mg sublingual film 3 film, Sublingual, Daily, [id number], # 90 film, 1 Refills, Maintenance, 10/21/21 9:55:00 EDT, [facility] #[id number], 3 film Sublingual Daily,x30 days,Instr:[id number], 170, cm, 03/07/21 11:09:00 EDT, Height, 107.3, kg, 06/22/20 13:29:00 EST, Dry... Start Date: 10/21/21 Stop Date: 12/20/21 Status: Ordered traZODone 50 mg oral tablet 50 mg, 1, tablet, By Mouth, Daily at bedtime, PRN, as needed, # 90 tablet, Refills 3, Tot. Refills 3, Maintenance, Sleep, 02/19/22 14:27:00 EDT, Route to Pharmacy Electronically, [facility]#[id number], 170, cm, 03/07/21 11:09:00 EDT, Height, 107... [...] Response Smoking Status Current every day antony jason entered on: 09/29/14 Sex Patient Care team information Care Team Personnel Name: Blaire Crandall Position: [facility] RN Member Role: Primary Care Nurse Name: Rhiannon Gibson Position: [facility] RN Member Role: Primary Care Nurse Name: Claribel Blevins NP Position: [facility] PCO Associate Professional Member Role: PCP Address: Address: [address] [place] [address]- Name: Viral Jolly MD Position: [facility] Psychiatry MD Member Role: Lifetime Consulting Physician Address: Address: [address] [place] [address]- Care Team Related Persons Name: MAIN MOSER Address: home [address] [place] [address] Name: JORGE GARCIA Address: [address] [place] [address]
--- OUTSIDE RECORDS SUMMARY | 2024-03-03 23:39 | XMS_ITS | Continuity of Care Document ---
Author Organization [facility] Address [address] [place] [address]- Care Team Providers Care Index Editor Name Role Phone Fine STEPHANIE, Compa Hall Primary Care Physician Encounter [facility] Date(s): 03/24/23 - 04/23/23 [facility] [address] [place] [address]- Allergies, Adverse Reactions, Alerts No Known Allergies [...] 11 Refills, Maintenance, 03/25/23 12:53:00 EST, Solution, [facility] #[id number], 3 mL Inhalation 4 times a da... Start Date: 03/25/23 Status: Ordered Augmentin 875 mg-125 mg oral tablet 1 tablet, By Mouth, Every 12 hours, for 7 days, # 14 tablet, 0 Refills, Acute 04/24/23 15:20:00 EST, 04/17/23 15:20:00 EST, Tablet, [facility] #[id number], Partial fill upon patient request if the prescription is for a schedule II opioid drug., 1... Start Date: 04/17/23 Stop Date: 04/24/23 Status: Ordered Breo Ellipta 100 mcg-25 mcg/inh inhalation powder 1 puffs, Inhalation, Daily, [employer]., # 1 each, 3 Refills, 11/21/22 10:33:00 EDT, [facility] #[id number], 1 puffs Inhalation Daily,Instr:[employer]., 170, cm, 11/19/2313:19:00 EDT, Height, 94.4, kg, 11/08/22 14:35:00 E... Start Date: 11/21/22 Status: Ordered cloNIDine 0.1 mg oral tablet 0.05 mg, 0.5, tablet, By Mouth, 4 times a day, PRN, stay hydrated, # 60 tablet, Refills 3, Tot. Refills 3, Maintenance, anxiety, panic, withdrawal symptoms, 03/25/23 12:52:00 EST, Route to Pharmacy Electronically, [facility] #[id number], Partial... Start Date: 03/25/23 Status: Ordered duloxetine 30 mg oral enteric coated capsule 1 capsule = 30 mg, By Mouth, 2 times a day, do not crush or chew, # 180 capsule, 3 Refills, Maintenance, 12/20/22 17:50:00 EDT, [facility] #[id number], 170, cm, 12/06/22 0:43:00 EDT, Height, 94.4, kg, 11/08/22 14:35:00 EDT, Dry Weight Start Date: 12/20/22 Status: Ordered gabapentin 300 mg oral capsule 300 mg, 1, capsule, By Mouth, 3 times a day, # 270 capsule, Refills 1, Tot. Refills 1, Maintenance,02/12/23 10:36:00 EDT, Route to Pharmacy Electronically, [facility] #[id number], Partial fill upon patient request, 170, cm, 01/31/23 10:06:00 EDT... Start Date: 02/12/23 Status: Ordered hydroxychloroquine 200 mg oral tablet 1, tablet, By Mouth, 2 times a day, # 60 tablet, Refills 5, Tot. Refills 5, 04/15/23 13:55:00 EST, Route to Pharmacy Electronically, [facility] #[id number], 170, cm, 01/31/23 10:06:00 EDT, Height, 94.4, kg, 11/08/22 14:35:00 EDT, Dry Weight Start Date: 04/15/23 Status: Ordered hydrOXYzine hydrochloride 25 mg oral tablet 1 tablet = 25 mg, By Mouth, Daily, PRN anxiety, for 30 days, # 30 tablet, 3 Refills, Acute 07/23/2411:53:00 EDT, 03/25/23 12:53:00 EST, Tablet, [facility] #[id number], Partial fill upon patientrequest if the prescription is for a schedule II op... Start Date: 03/25/23 Stop Date: 07/23/23 Status: Ordered lidocaine 5% topical film 1 patch, Topically, Daily, PRN Pain , Mild, for 5 days, remove after 12 hours, # 5 patch, 0 Refills, Acute 04/25/23 21:54:00 EST, 04/20/23 21:54:00 EST, Film, [facility] #[id number], Partial fill upon patient request if the prescription is for a... Start Date: 04/20/23 Stop Date: 04/25/23 Status: Ordered risperiDONE 1 mg oral tablet 1 mg, 1, tablet, By Mouth, Daily, # 90 tablet, Refills 1, Tot. Refills 1, Maintenance, 02/12/23 10:37:00 EDT, Route to Pharmacy Electronically, [facility] #[id number], 170, cm, 01/31/23 10:06:00EDT, Height, 94.4, kg, 11/08/22 14:35:00 EDT, Dry W... Start Date: 02/12/23 Stop Date: 08/11/23 Status: Ordered Suboxone 8 mg-2 mg Sublingual Film 1 film, Sublingual, 3 times a day, dissolve under the tongue, # 90 film, 1 Refills, Maintenance, 03/14/23 10:32:00 EST, [facility] #[id number], Partial fill upon patient request if the prescription is for a schedule II opioid drug. ALVINA [id number];... Start Date: 03/14/23 Stop Date: 05/13/23 Status: Ordered tiZANidine 2 mg oral tablet 2 mg, 1, tablet, By Mouth, 3 times a day, # 21 tablet, Refills 0, Tot. Refills 0, Maintenance, 04/22/23 9:05:00 EST, Route to Pharmacy Electronically, [facility] #[id number], Partial fill upon patient request if the prescription is for a schedule... Start Date: 04/22/23 Stop Date: 04/29/23 Status: Ordered Ventolin HFA 108 mcg/inh inhalation aerosol with adapter 2 puffs, Inhalation, 4 times a day, PRN for wheezing, # 18 Gm, 0 Refills, Maintenance, 04/17/23 15:20:00 EST, Aerosol, [facility] #[id number], Partial fill upon patient request if the prescription is for a schedule II opioid drug., 170, cm, 04/17... Start Date: 04/17/23 Status: Ordered Voltaren Arthritis Pain 1% topical gel = 4 Gm, Topically, 4 times a day, # 480 Gm, 4 Refills, Maintenance, 04/10/23 11:37:00 EST, [facility] #[id number], Partial fill upon patient request if the [...] Personnel Name: Compa Diane NP Position: [facility] PCO Associate Professional Member Role: PCP Address: Address: [address] [facility] [place] [address]- Name: Blaire Iglesias [place] Position: [facility] RN Member Role: Primary Care Nurse Name: Rhiannon Gibson Position: [facility] RN Member Role: Primary Care Nurse Name: Viral Jolly MD Position: [facility] Physician - Behavioral Health Member Role: Lifetime Consulting Physician Address: Address: [address] [place] [address]- Care Team Related Persons Name: MAIN MOSER Address: home [address] [place] [address] Name: JORGE GARCIA Address: [address] [place] [address] Name: LOREE SIFUENTES
--- OUTSIDE RECORDS SUMMARY | 2024-03-03 23:40 | XMS_ITS | Continuity of Care Document ---
Author Organization [facility] Address [address] [place] [address]- Care Team Providers Care Failure Analysis Technician Name Role Phone Angela BROWN, Robyn Martinez Primary Care Physician Encounter [facility] Date(s): 12/13/19 - 01/15/20 [facility] [address] [place] [address]- [facility] Attending Physician: Eder Conrad MD Allergies, Adverse [...]
--- OUTSIDE RECORDS SUMMARY | 2024-03-03 23:40 | XMS_ITS | Continuity of Care Document ---
Author Organization [facility] [place] Address [address] [place] [address]- Care Team Providers Care Telesales Team Leader Name Role Phone Roxi BROWN, Compa Hall Primary Care Physician Encounter [facility] Date(s): 10/15/23 - 11/14/23 [facility] [place] [address] [place] [address]- Attending Physician: Maddie Jones Admitting Physician: AdmtrMaddie [...] 11 Refills, Maintenance, 03/25/23 12:53:00 EST, Solution, [facility] #[id number], 3 mL Inhalation 4 times a da... Start Date: 03/25/23 Status: Ordered Breo Ellipta 100 mcg-25 mcg/inh inhalation powder 1 puffs, Inhalation, Daily, RINSE MOUTH AFTERWARDS., # 1 each, 3 Refills, 11/21/22 10:33:00 [id number], 1 puffs Inhalation Daily,Instr:RINSE MOUTH AFTERWARDS., 170, cm, 11/19/2313:19:00 EDT, Height, 94.4, kg, 11/08/22 14:35:00 E... Start Date: 11/21/22 Status: Ordered calcium (as citrate)-vitamin D 315 mg-250 intl units oral tablet 2 tablet, By Mouth, 2 times a day, # 120 tablet, 11 Refills, Maintenance, 10/27/23 11:47:00 EDT, Tablet, [facility] #[id number], Partial fill upon patient request if the [...] 09/18/23 10:13:00 EDT, Route to Pharmacy Electronically, [facility] #[id number], Partial... Start Date: 09/18/23 Stop Date: 03/16/24 Status: Ordered duloxetine 30 mg oral enteric coated capsule 1 capsule = 30 mg, By Mouth, 2 times a day, do not crush or chew, # 180 capsule, 3 Refills, Maintenance, 12/20/22 17:50:00 EDT, [facility] #[id number], 170, cm, 12/06/22 0:43:00 EDT, Height, 94.4, kg, 11/08/22 14:35:00 EDT, Dry Weight Start Date: 12/20/22 Status: Ordered gabapentin 300 mg oral capsule 300 mg, 1, capsule, By Mouth, 3 times a day, # 270 capsule, Refills 1, Tot. Refills 1, Maintenance,08/11/23 9:29:00 EDT, Route to Pharmacy Electronically, [facility] #[id number], Partial fill upon patient request, 170, cm, 07/23/23 16:32:00 EDT,... Start Date: 08/11/23 Status: Ordered hydroxychloroquine 200 mg oral tablet 1, tablet, By Mouth, 2 times a day, # 60 tablet, Refills 5, Tot. Refills 5, 04/15/23 13:55:00 EST, Route to Pharmacy Electronically, [facility] #[id number], 170, cm, 01/31/23 10:06:00 EDT, Height, 94.4, kg, 11/08/22 14:35:00 EDT, Dry Weight Start Date: 04/15/23 Status: Ordered hydrOXYzine hydrochloride 25 mg oral tablet See Instructions, TAKE 1 TABLET BY MOUTH TWICE DAILY NEEDED FOR ANXIETY, # 60 tablet, 5 Refills,Maintenance, 09/18/23 10:13:00 EDT, [facility] #[id number], 170, cm, 07/23/23 16:32:00 EDT, Height, 100, [...] 12:02:00 EDT, 11/11/23 12:02:00 EDT, Ophth Solution, [facility] #[id number], Partial fill upon patient request if the prescription is for a schedule II opioid drug... Start Date: 11/11/23 Stop Date: 11/18/23 Status: Ordered risperiDONE 1 mg oral tablet 1 mg, 1, tablet, By Mouth, Daily, # 90 tablet, Refills 1, Tot. Refills 1, Maintenance, 08/11/23 9:29:00 EDT, Route to Pharmacy Electronically, [facility] #[id number], 170, cm, 07/23/23 16:32:00 EDT, Height, 100, kg, 04/20/23 21:48:00 EST, Dry Weight Start Date: 08/11/23 Stop Date: 02/07/24 Status: Ordered Suboxone 8 mg-2 mg Sublingual Film 1 film, Sublingual, 3 times a day, for 14 days, dissolve under the tongue, # 42 film, 0 Refills, Hard Stop 11/25/23 9:01:00 EDT, 11/11/23 9:01:00 EDT, [facility] #[id number], Partial fill upon patient request if the prescription is for a schedule... Start Date: 11/11/23 Stop Date: 11/25/23 Status: Ordered tiZANidine 2 mg oral tablet 2 mg, 1, tablet, By Mouth, 3 times a day, # 84 tablet, Refills 1, Tot. Refills 1, Maintenance, 09/08/23 18:10:00 EDT, Route to Pharmacy Electronically, [facility] #[id number], Partial fill upon patient request if the prescription is for a schedul... Start Date: 09/08/23 Stop Date: 11/03/23 Status: Ordered Trelegy Ellipta 200 mcg-62.5 mcg-25 mcg/inh inhalation powder 1 puffs, Inhalation, Daily, at the same time every day, # 3 each, 3 Refills, Maintenance, 07/23/23 16:56:00 EDT, Powder, [facility] #[id number], Partial fill upon patient request if the prescription is for a schedule II opioid drug., 1 puffs Inha... Start Date: 07/23/23 Stop Date: 07/17/24 Status: Ordered Ultram 50 mg oral tablet 1 tablet = 50 mg, By Mouth, Every 12 hours, PRN for pain, # 20 tablet, 0 Refills, Maintenance, 10/14/23 9:32:00 EDT, Tablet, [facility] #[id number], Partial fill upon patient request if the prescription is for a schedule II opioid drug., 170, cm,... Start Date: 10/14/23 Status: Ordered Ventolin HFA 108 mcg/inh inhalation aerosol with adapter 2 puffs, Inhalation, 4 times a day, PRN for wheezing, # 1 each, 3 Refills, Maintenance, 05/28/23 12:34:00 EST, Aerosol, [facility] #[id number], Partial fill upon patient request if the prescription is for a schedule II opioid drug., 170, cm, 04/04... Start Date: 05/28/23 Status: Ordered Voltaren Arthritis Pain 1% topical gel = 4 Gm, Topically, 4 times a day, # 480 Gm, 4 Refills, Maintenance, 07/24/23 14:31:00 EDT, [facility] #[id number], Partial fill upon patient request if the prescription is for a schedule II opioid drug., 4 Gm Topically 4 times a day, 170, cm, ... Start Date: 07/24/23 Status: Ordered [facility] PAIN RELIEVING LIDOCAINE PATCH 4% [facility] PAIN RELIEVING LIDOCAINE PATCH 4%, See Instructions, [...] Team Personnel Name: Compa Diane NP Position: [facility] PCO Associate Professional Member Role: PCP Address: Address: [address] [place] [address] [place] [address]- Name: Blaire Iglesias [place] Position: [facility] Office Staff Member Role: Primary Care Nurse Name: Rhiannon Li [place] Position: [facility] Office Staff Member Role: Primary Care Nurse Name: Viral Jolly MD Position: [facility] Physician - Behavioral Health Member Role: Lifetime Consulting Physician Address: Address: [address] [place] [address]- Care Team Related Persons Name: MAIN MOSER Address: home [address] [place] [address] Name: JORGE GARCIA Address: home [address] [place] [address] Name: LOREE SIFUENTES
--- OUTSIDE RECORDS SUMMARY | 2024-03-03 23:40 | XMS_ITS | Continuity of Care Document ---
Author Organization [facility] Address [address] [place] [address] [address] [place] [address]- Care Team Providers Care Demurrage Clerk Name Role Phone Fine NURSING PROGRAM MANAGER, Compa Hall Primary Care Physician ( [phone] Encounter [facility] Date(s): 11/12/23 - 12/12/23 [facility] [address] [place] [id number] Attending Physician: Admtr, Maddie Admitting Physician: AdmtrMaddie Referring Physician: Admtr, Ar8 [...] 11 Refills, Maintenance, 03/25/23 12:53:00 EST, Solution, [facility] #[id number], 3 mL Inhalation 4 times a da... Start Date: 03/25/23 Status: Ordered Breo Ellipta 100 mcg-25 mcg/inh inhalation powder 1 puffs, Inhalation, Daily, [employer] AFTERWARDS., # 1 each, 3 Refills, 11/21/22 10:33:00 EDT, [facility] #[id number], 1 puffs Inhalation Daily,Instr:RINSE MOUTH AFTERWARDS., 170, cm, 11/19/2313:19:00 EDT, Height, 94.4, kg, 11/08/22 14:35:00 E... Start Date: 11/21/22 Status: Ordered calcium (as citrate)-vitamin D 315 mg-250 intl units oral tablet 2 tablet, By Mouth, 2 times a day, # 120 tablet, 11 Refills, Maintenance, 10/27/23 11:47:00 EDT, Tablet, [facility] #[id number], Partial fill upon patient request if the [...] 09/18/23 10:13:00 EDT, Route to Pharmacy Electronically, [facility] #[id number], Partial... Start Date: 09/18/23 Stop Date: 03/16/24 Status: Ordered duloxetine 30 mg oral enteric coated capsule 1 capsule = 30 mg, By Mouth, 2 times a day, do not crush or chew, # 180 capsule, 3 Refills, Maintenance, 12/20/22 17:50:00 EDT, [facility] #[id number], 170, cm, 12/06/22 0:43:00 EDT, Height, 94.4, kg, 11/08/22 14:35:00 EDT, Dry Weight Start Date: 12/20/22 Status: Ordered gabapentin 300 mg oral capsule 300 mg, 1, capsule, By Mouth, 3 times a day, # 270 capsule, Refills 1, Tot. Refills 1, Maintenance,08/11/23 9:29:00 EDT, Route to Pharmacy Electronically, [facility] #[id number], Partial fill upon patient request, 170, cm, 07/23/23 16:32:00 EDT,... Start Date: 08/11/23 Status: Ordered hydroxychloroquine 200 mg oral tablet 1, tablet, By Mouth, 2 times a day, # 60 tablet, Refills 5, Tot. Refills 5, 04/15/23 13:55:00 EST, Route to Pharmacy Electronically, [facility] #[id number], 170, cm, 01/31/23 10:06:00 EDT, Height, 94.4, kg, 11/08/22 14:35:00 EDT, Dry Weight Start Date: 04/15/23 Status: Ordered hydrOXYzine hydrochloride 25 mg oral tablet See Instructions, TAKE 1 TABLET BY MOUTH TWICE DAILY NEEDED FOR ANXIETY, # 60 tablet, 5 Refills,Maintenance, 09/18/23 10:13:00 EDT, [facility] #[id number], 170, cm, 07/23/23 16:32:00 EDT, Height, 100, kg, 04/20/23 21:48:00 EST, Dry Weight Start Date: 09/18/23 Status: Ordered NEBULIZER MACHINE AND TUBING NEBULIZER MACHINE AND TUBING, See Instructions, PRN Wheezing/Shortness of Breath, # 1 each, Refills0, Tot. Refills 0, Maintenance, USE NEEDED FOR WHEEZING DX:, 06/17/23 15:49:00 EST, Supply Start Date: 06/17/23 Status: Ordered NuLYTELY Lemon [place] oral powder for reconstitution 240 mL, By Mouth, Every 10 minutes, # 1 each, 0 Refills, Maintenance, 12/03/23 9:52:00 EDT, REC Powder, [facility] #[id number], Partial fill upon patient request if the prescription is for a schedule II opioid drug., 170, cm, 11/26/23 7:18:00 EDT... Start Date: 12/03/23 Status: Ordered PHENobarbital 30 mg oral tablet 1 tablet = 30 mg, By Mouth, 2 times a day, # 60 tablet, 1 Refills, Maintenance, 11/20/23 16:42:00 EDT, Tablet, [facility] #[id number], IF NOT COVERED, please use goodrx coupon and allow pt to pay OOP; $9.09; ASHLEY [id number]; [facility]; Group [id number]; Membe... Start Date: 11/20/23 Status: Ordered risperiDONE 1 mg oral tablet 1 mg, 1, tablet, By Mouth, Daily, # 90 tablet, Refills 1, Tot. Refills 1, Maintenance, 08/11/23 9:29:00 EDT, Route to Pharmacy Electronically, [facility] #[id number], 170, cm, 07/23/23 16:32:00 EDT, Height, 100, kg, 04/20/23 21:48:00 EST, Dry Weight Start Date: 08/11/23 Stop Date: 02/07/24 Status: Ordered tiZANidine 2 mg oral tablet 2 mg, 1, tablet, By Mouth, 3 times a day, # 84 tablet, Refills 1, Tot. Refills 1, Maintenance, 09/08/23 18:10:00 EDT, Route to Pharmacy Electronically, [facility] #[id number], Partial fill upon patient request if the prescription is for a schedul... Start Date: 09/08/23 Stop Date: 11/03/23 Status: Ordered Trelegy Ellipta 200 mcg-62.5 mcg-25 mcg/inh inhalation powder 1 puffs, Inhalation, Daily, at the same time every day, # 3 each, 3 Refills, Maintenance, 07/23/23 16:56:00 EDT, Powder, [facility] #[id number], Partial fill upon patient request if the prescription is for a schedule II opioid drug., 1 puffs Inha... Start Date: 07/23/23 Stop Date: 07/17/24 Status: Ordered Ultram 50 mg oral tablet 1 tablet = 50 mg, By Mouth, Every 12 hours, PRN for pain, # 20 tablet, 0 Refills, Maintenance, 10/14/23 9:32:00 EDT, Tablet, [facility] #[id number], Partial fill upon patient request if the prescription is for a schedule II opioid drug., 170, cm,... Start Date: 10/14/23 Status: Ordered Ventolin HFA 108 mcg/inh inhalation aerosol with adapter 2 puffs, Inhalation, 4 times a day, PRN for wheezing, # 1 each, 3 Refills, Maintenance, 05/28/23 12:34:00 EST, Aerosol, [facility] #[id number], Partial fill upon patient request if the prescription is for a schedule II opioid drug., 170, cm, 04/04... Start Date: 05/28/23 Status: Ordered Voltaren Arthritis Pain 1% topical gel = 4 Gm, Topically, 4 times a day, # 480 Gm, 4 Refills, Maintenance, 07/24/23 14:31:00 EDT, [facility] #[id number], Partial fill upon patient request if the prescription is for a schedule II opioid drug., 4 Gm Topically 4 times a day, 170, cm, ... Start Date: 07/24/23 Status: Ordered [facility] PAIN RELIEVING LIDOCAINE PATCH 4% [facility] PAIN RELIEVING LIDOCAINE PATCH 4%, See Instructions, [...] Personnel Name: Roxi BROWN, Compa Hall Position: [facility] PCO Associate Professional Member Role: PCP Address: Address: [address] [facility] [place] [address]- Name: Blaire Iglesias [place] Position: [facility] Staff Member Role: Primary Care Nurse Name: Rhiannon Li [place] Position: [facility] Staff Member Role: Primary Care Nurse Name: Viral Jolly MD Position: [facility] Physician - Behavioral Health Member Role: Lifetime Consulting Physician Address: Address: [address] [place] [id number]- Care Team Related Persons Name: MAIN MOSER Address: home [address] [place] [address] Name: JORGE GARCIA Address: home [address] [place] [address] Name: LOREE SIFUENTES
--- OUTSIDE RECORDS SUMMARY | 2024-03-03 23:40 | XMS_ITS | Continuity of Care Document ---
Author Organization [facility] Address [address] [place] [address]- Care Team Providers Care Instrument Adjuster Name Role Phone Robyn Miller NP Primary Care Physician Encounter [facility] [place] Date(s): 10/06/20 - 11/05/20 [facility] [address] [place], [place] [address] Attending Physician: AdmtrMaddie Admitting Physician: AdmtrMaddie Referring [...] Unknown, 11 Refills, Maintenance, 06/19/20 16:07:00 EST, [facility] [id number], 20, INHALE 2 PUFFS BY MOUTH EVERY 4 TO 6 HOURS NEEDED FOR WHEEZE FOR SHORTNESS... Start Date: 06/19/20 Status: Ordered Suboxone 8 mg-2 mg sublingual film 2.5 FILMS, Sublingual, Daily, [id number], # 75 film, 1 Refills, Maintenance, 04/26/20 16:38:00 EST, [facility] #[id number], 2.5 FILMS Sublingual Daily,Instr:[id number], 163, cm, 04/26/20 14:26:00 EST, Height, 105, [...]
--- OUTSIDE RECORDS SUMMARY | 2024-03-03 23:40 | XMS_ITS | Continuity of Care Document ---
Author Organization [facility] [place] Address [address] [place] [address]- Care Team Providers Care Yard Specialist Name Role Phone Gen BROWN, Claribel Primary Care Physician Encounter [facility] Date(s): 02/26/22 - 03/28/22 [facility] [place] [address] [place] [address]- Attending Physician: Maddie Jones Admitting Physician: AdmMaddie [...] Maintenance, 08/22/20 13:04:00 EDT, Solution, [facility]/pharmacy #[id number], 3 mL Inhalation 4 times a day,PRN:Whe... Start Date: 08/22/20 Status: Ordered Breo Ellipta 100 mcg-25 mcg/inh inhalation powder 1 puffs, Inhalation, Daily, RINSE MOUTH AFTERWARDS., # 60 each, 1 Refills, [facility] [id number], 30, INHALE 1 PUFF BY MOUTH EVERY DAY. RINSE MOUTH AFTERWARDS., 170, cm, 03/07/21 11:09:00 EDT, Height, 107.3, kg, 06/22/20 13:29:00 EST, Dry Weight Start Date: 11/12/21 Status: Ordered diclofenac 1% topical gel = 2 Gm, Topically, 2 times a day, # 100 Gm, 2 Refills, 01/22/22 17:37:00 EDT, [facility] #[id number], 25, 2 Gm Topically 2 times a day, 170, cm, 03/07/21 11:09:00 EDT, Height, 107.3, kg, 06/22/20 13:29:00 EST, Dry Weight Start Date: 01/22/22 Status: Ordered duloxetine 30 mg oral enteric coated capsule 1 capsule = 30 mg, By Mouth, 2 times a day, do not crush or chew, # 180 capsule, 3 Refills, Maintenance, 02/19/22 14:28:00 EDT, [facility] #[id number], 170, cm, 03/07/21 11:09:00 EDT, Height, 107.3, kg, 06/22/20 13:29:00 EST, Dry Weight Start Date: 02/19/22 Status: Ordered famotidine 20 mg oral tablet 20 mg, 1, tablet, By Mouth, Daily, OV 5-6-20, # 30 tablet, Refills 5, Tot. Refills 5, Maintenance, 08/21/20 12:25:00 EDT, Route to Pharmacy Electronically, [facility]/pharmacy #[id number], 170, cm, 08/16/20 15:32:00 EDT, Height, 107.3, kg, 06/22/20 13:29:00 EST, D... Start Date: 08/21/20 Status: Ordered gabapentin 300 mg oral capsule 300 mg, 1, capsule, By Mouth, 3 times a day, # 270 capsule, Refills 1, Tot. Refills 1, Maintenance,08/21/21 14:14:00 EDT, Route to Pharmacy Electronically, [facility] #[id number], Partial fill upon patient request, 170, cm, 03/07/21 11:09:00 EDT... Start Date: 08/21/21 Status: Ordered gabapentin 300 mg oral capsule 300 mg, 1, capsule, By Mouth, 3 times a day, # 270 capsule, Refills 3, Tot. Refills 3, Maintenance,02/19/22 14:28:00 EDT, Route to Pharmacy Electronically, [facility] #[id number], Partial fill upon patient request, 170, cm, 03/07/21 11:09:00 EDT... Start Date: 02/19/22 Status: Ordered hydroxychloroquine 200 mg oral tablet 1, tablet, By Mouth, 2 times a day, # 60 tablet, Refills 5, Route to Pharmacy Electronically, [facility] [id number], 170, cm, 03/07/21 11:09:00 EDT, Height, 107.3, [...] 18 Gm, 5 Refills, 03/20/22 16:08:00 EST, [facility] #[id number], 2 puffs Inhalation Every 4 to 6 hours,PRN: NEEDED FOR SHORTNESS OF BREATH OR WHEEZING... Start Date: 03/20/22 Status: Ordered risperiDONE 1 mg oral tablet 1 mg, 1, tablet, By Mouth, Daily, # 90 tablet, Refills 3, Tot. Refills 3, Maintenance, 02/19/22 14:27:00 EDT, Route to Pharmacy Electronically, [facility] #[id number], 170, cm, 03/07/21 11:09:00EDT, Height, 107.3, kg, 06/22/20 13:29:00 EST, Dry... Start Date: 02/19/22 Stop Date: 02/14/23 Status: Ordered Suboxone 8 mg-2 mg Sublingual Film 1 film, Sublingual, 3 times a day, dissolve under the tongue, # 90 film, 1 Refills, Maintenance, 02/08/22 13:04:00 EDT, [facility] #[id number], Partial fill upon patient request if the prescription is for a schedule II opioid drug. [facility]VINA [id number],... Start Date: 02/08/22 Stop Date: 04/09/22 Status: Ordered Suboxone 8 mg-2 mg Sublingual Film 1 film, Sublingual, 3 times a day, dissolve under the tongue, # 90 film, 1 Refills, Maintenance, 12/10/21 14:40:00 EDT, [facility] #[id number], Partial fill upon patient request if the prescription is for a schedule II opioid drug. [facility] [id number],... Start Date: 12/10/21 Stop Date: 02/08/22 Status: Ordered Suboxone 8 mg-2 mg sublingual film 3 film, Sublingual, Daily, [id number], # 90 film, 1 Refills, Maintenance, 10/21/21 9:55:00 EDT, [facility] #[id number], 3 film Sublingual Daily,x30 days,Instr:[id number], 170, cm, 03/07/21 11:09:00 EDT, Height, 107.3, kg, 06/22/20 13:29:00 EST, Dry... Start Date: 10/21/21 Stop Date: 12/20/21 Status: Ordered traZODone 50 mg oral tablet 50 mg, 1, tablet, By Mouth, Daily at bedtime, PRN, as needed, # 90 tablet, Refills 3, Tot. Refills 3, Maintenance, Sleep, 02/19/22 14:27:00 EDT, Route to Pharmacy Electronically, [facility]04165, 170, cm, 03/07/21 11:09:00 EDT, Height, 107... Start Date: 02/19/22 Status: Ordered Vitamin D3 1000 intl units oral tablet 1 tablet = 1,000 International_Units, By Mouth, Daily, # 30 tablet, 11 Refills, Maintenance, 10/04/19 11:54:00 EDT, Tablet, [facility]/pharmacy #[id number], 163, cm, 10/04/19 11:27:00 EDT, Height, [...] Care Team Personnel Name: Blaire Crandall Position: [facility] RN Member Role: Primary Care Nurse Name: Rhiannon Gibson Position: [facility] RN Member Role: Primary Care Nurse Name: Claribel Blevins NP Position: [facility] PCO Associate Professional Member Role: PCP Address: Address: [address] [place] [address]- [place] Name: Viral Jolly MD Position: [facility] Psychiatry MD Member Role: Lifetime Consulting Physician Address: Address: [address] [place] [address]- Care Team Related Persons Name: MAIN MOSER Address: home [address] [place] [address] Name: JORGE GARCIA Address: home [address] [place] [address]
--- OUTSIDE RECORDS SUMMARY | 2024-03-03 23:40 | XMS_ITS | Continuity of Care Document ---
Author Organization [facility] Address [address] [place] [address]- Care Team Providers Care Technical Sales Support Specialist Name Role Phone Angela BROWN, Robyn Martinez Primary Care Physician Encounter [facility] Date(s): 08/16/20 - 09/15/[address] [id number] Allergies, Adverse Reactions, Alerts Substance Reaction Severity [...] Unknown, 11 Refills, Maintenance, 06/19/20 16:07:00 EST, [facility], 20, INHALE 2 PUFFS BY MOUTH EVERY 4 TO 6 HOURS NEEDED FOR WHEEZE FOR SHORTNESS... Start Date: 06/19/20 Status: Ordered Suboxone 8 mg-2 mg sublingual film 2.5 FILMS, Sublingual, Daily, [id number], # 75 film, 1 Refills, Maintenance, 04/26/20 16:38:00 EST, [facility] #[id number], 2.5 FILMS Sublingual Daily,Instr:[id number], 163, cm, 04/26/20 14:26:00 EST, Height, 105, [...]
--- OUTSIDE RECORDS SUMMARY | 2024-03-03 23:40 | XMS_ITS | Continuity of Care Document ---
Author Organization [facility] Address [address] [place] [address]- Care Team Providers Care Granite Setter Name Role Phone Fine LOCK ASSEMBLER, Compa Hall Primary Care Physician Encounter [facility] Date(s): 11/25/22 - 11/25/[address] [address]- Discharge Disposition: A-D/C Walkout Attending Physician: Cristo Wisdom MD Admitting Physician: Cristo Wisdom MD Referring Physician: Not on Staff, Referring [...] Refills, Maintenance, 08/22/20 13:04:00 EDT, Solution, [facility]/pharmacy #[id number], 3 mL Inhalation 4 times a day,PRN:Whe... Start Date: 08/22/20 Status: Ordered Breo Ellipta 100 mcg-25 mcg/inh inhalation powder 1 puffs, Inhalation, Daily, [employer]., # 1 each, 3 Refills, 11/21/22 10:33:00 EDT, [facility] #[id number], 1 puffs Inhalation Daily,Instr:[employer]., 170, cm, 11/19/2313:19:00 EDT, Height, 94.4, kg, 11/08/22 14:35:00 E... Start Date: 11/21/22 Status: Ordered cloNIDine 0.1 mg oral tablet 0.05 mg, 0.5, tablet, By Mouth, 4 times a day, PRN, # 60 tablet, Refills 1, Tot. Refills 1, Maintenance, anxiety, panic, withdrawal symptoms, 10/25/22 15:45:00 EDT, Route to Pharmacy Electronically, [facility] #[id number], Partial fill upon patie... Start Date: 10/25/22 Status: Ordered diclofenac 1% topical gel = 2 Gm, Topically, 2 times a day, # 100 Gm, 2 Refills, 05/16/22 16:23:00 EST, [facility] #[id number], 25, 2 Gm Topically 2 times a [...] 04/03/23 9:00:00 EST, 10/25/22 15:39:00 EDT, Tablet, [facility] #[id number], Partial fill upon patient... Start Date: 10/25/22 Stop Date: 04/03/23 Status: Ordered duloxetine 30 mg oral enteric coated capsule 1 capsule = 30 mg, By Mouth, 2 times a day, do not crush or chew, # 180 capsule, 3 Refills, Maintenance, 02/19/22 14:28:00 EDT, [facility] #[id number], 170, cm, 03/07/21 11:09:00 EDT, Height, 107.3, kg, 06/22/20 13:29:00 EST, Dry Weight Start Date: 02/19/22 Status: Ordered famotidine 20 mg oral tablet 20 mg, 1, tablet, By Mouth, Daily, OV 5-6-20, # 30 tablet, Refills 5, Tot. Refills 5, Maintenance, 08/21/20 12:25:00 EDT, Route to Pharmacy Electronically, [facility]/pharmacy #[id number], 170, cm, 08/16/20 15:32:00 EDT, Height, 107.3, kg, 06/22/20 13:29:00 EST, D... Start Date: 08/21/20 Status: Ordered gabapentin 300 mg oral capsule 300 mg, 1, capsule, By Mouth, 3 times a day, # 270 capsule, Refills 1, Tot. Refills 1, Maintenance,08/21/21 14:14:00 EDT, Route to Pharmacy Electronically, [facility] #[id number], Partial fill upon patient request, 170, cm, 03/07/21 11:09:00 EDT... Start Date: 08/21/21 Status: Ordered gabapentin 300 mg oral capsule 300 mg, 1, capsule, By Mouth, 3 times a day, # 270 capsule, Refills 3, Tot. Refills 3, Maintenance,02/19/22 14:28:00 EDT, Route to Pharmacy Electronically, [facility] #[id number], Partial fill upon patient request, 170, cm, 03/07/21 11:09:00 EDT... Start Date: 02/19/22 Status: Ordered hydroxychloroquine 200 mg oral tablet 1, tablet, By Mouth, 2 times a day, # 60 tablet, Refills 5, Tot. Refills 5, 05/16/22 16:23:00 EST, Route to Pharmacy Electronically, [facility] #[id number], 175, cm, 05/01/22 15:32:00 EST, Height, 75, [...] 18 each, 3 Refills, 11/22/22 15:59:00 EDT, [facility] #[id number], 20, 2 puffs Inhalation Every 4 to6 hours,PRN: NEEDED FOR SHORTNESS OF BREATH OR WH... Start Date: 11/22/22 Status: Ordered ProAir HFA 90 mcg/inh inhalation aerosol 2 puffs, Inhalation, Every 4 to 6 hours, PRN NEEDED FOR SHORTNESS OF BREATH OR WHEEZING, # 18 Gm, 5 Refills, 03/20/22 16:08:00 EST, [facility] #[id number], 2 puffs Inhalation Every 4 to 6 hours,PRN: NEEDED FOR SHORTNESS OF BREATH OR WHEEZING... Start Date: 03/20/22 Status: Ordered risperiDONE 1 mg oral tablet 1 mg, 1, tablet, By Mouth, Daily, # 90 tablet, Refills 3, Tot. Refills 3, Maintenance, 02/19/22 14:27:00 EDT, Route to Pharmacy Electronically, [facility] #[id number], 170, cm, 03/07/21 11:09:00EDT, Height, 107.3, kg, [...] film, 1 Refills, Maintenance, 11/14/22 10:32:00 EDT, [facility] #[id number], Partial fill upon patient request if the prescription is for a schedule II opioid drug. [facility] [id number];... Start Date: 11/14/22 Stop Date: 01/13/23 Status: [...] Associate Professional Member Role: PCP Address: Address: [address] [place] [address] [place] [address]- Name: Blaire Iglesias [place] Position: [facility] RN Member Role: Primary Care Nurse Name: Rhiannon Gibson Position: [facility] RN Member Role: Primary Care Nurse Name: Viral Jolly MD Position: [facility] Physician - Behavioral Health Member Role: Lifetime Consulting Physician Address: Address: [address] [place] [id number]- Care Team Related Persons Name: MAIN MOSER Address: home [address] [place] [address] Name: JORGE GARCIA Address: home [address] [place] [address] Name: LOREE SIFUENTES
--- OUTSIDE RECORDS SUMMARY | 2024-03-03 23:40 | XMS_ITS | Continuity of Care Document ---
Author Organization [facility] [place] Address [address] [place] [address]- Care Team Providers Care Rosin Barrel Filler Name Role Phone Roxi ASPHALT HEATER TENDER, Compa Hall Primary Care Physician Encounter [facility] Date(s): 04/21/23 - 05/21/23 [facility] [place] [address] [place] [address]- Allergies, Adverse Reactions, Alerts No Known Allergies [...] 11 Refills, Maintenance, 03/25/23 12:53:00 EST, Solution, [facility] #[id number], 3 mL Inhalation 4 times a da... Start Date: 03/25/23 Status: Ordered Breo Ellipta 100 mcg-25 mcg/inh inhalation powder 1 puffs, Inhalation, Daily, [employer]., # 1 each, 3 Refills, 11/21/22 10:33:00 EDT, [facility] #[id number], 1 puffs Inhalation Daily,Instr:[employer]., 170, cm, 11/19/2313:19:00 EDT, Height, 94.4, kg, 11/08/22 14:35:00 E... Start Date: 11/21/22 Status: Ordered cloNIDine 0.1 mg oral tablet 0.05 mg, 0.5, tablet, By Mouth, 4 times a day, PRN, stay hydrated, # 60 tablet, Refills 3, Tot. Refills 3, Maintenance, anxiety, panic, withdrawal symptoms, 03/25/23 12:52:00 EST, Route to Pharmacy Electronically, [facility] #[id number], Partial... Start Date: 03/25/23 Status: Ordered duloxetine 30 mg oral enteric coated capsule 1 capsule = 30 mg, By Mouth, 2 times a day, do not crush or chew, # 180 capsule, 3 Refills, Maintenance, 12/20/22 17:50:00 EDT, [facility] #[id number], 170, cm, 12/06/22 0:43:00 EDT, Height, 94.4, kg, 11/08/22 14:35:00 EDT, Dry Weight Start Date: 12/20/22 Status: Ordered gabapentin 300 mg oral capsule 300 mg, 1, capsule, By Mouth, 3 times a day, # 270 capsule, Refills 1, Tot. Refills 1, Maintenance,02/12/23 10:36:00 EDT, Route to Pharmacy Electronically, [facility] #[id number], Partial fill upon patient request, 170, cm, 01/31/23 10:06:00 EDT... Start Date: 02/12/23 Status: Ordered hydroxychloroquine 200 mg oral tablet 1, tablet, By Mouth, 2 times a day, # 60 tablet, Refills 5, Tot. Refills 5, 04/15/23 13:55:00 EST, Route to Pharmacy Electronically, [facility] #[id number], 170, cm, 01/31/23 10:06:00 EDT, Height, 94.4, kg, 11/08/22 14:35:00 EDT, Dry Weight Start Date: 04/15/23 Status: Ordered hydrOXYzine hydrochloride 25 mg oral tablet 1 tablet = 25 mg, By Mouth, Daily, PRN anxiety, for 30 days, # 30 tablet, 3 Refills, Acute 07/23/2411:53:00 EDT, 03/25/23 12:53:00 EST, Tablet, [facility] #[id number], Partial fill upon patientrequest if the prescription is for a schedule II op... Start Date: 03/25/23 Stop Date: 07/23/23 Status: Ordered risperiDONE 1 mg oral tablet 1 mg, 1, tablet, By Mouth, Daily, # 90 tablet, Refills 1, Tot. Refills 1, Maintenance, 02/12/23 10:37:00 EDT, Route to Pharmacy Electronically, [facility] #[id number], 170, cm, 01/31/23 10:06:00EDT, Height, 94.4, kg, 11/08/22 14:35:00 EDT, Dry W... Start Date: 02/12/23 Stop Date: 08/11/23 Status: Ordered Suboxone 8 mg-2 mg Sublingual Film 1 film, Sublingual, 3 times a day, dissolve under the tongue, # 90 film, 1 Refills, Maintenance, 05/14/23 11:49:00 EST, [facility] #[id number], Partial fill upon patient request if the prescription is for a schedule II opioid drug. ALVINA [id number];... Start Date: 05/14/23 Stop Date: 07/13/23 Status: Ordered tiZANidine 2 mg oral tablet 2 mg, 1, tablet, By Mouth, 3 times a day, # 21 tablet, Refills 0, Tot. Refills 0, Maintenance, 04/22/23 9:05:00 EST, Route to Pharmacy Electronically, [facility] #[id number], Partial fill upon patient request if the prescription is for a schedule... Start Date: 04/22/23 Stop Date: 04/29/23 Status: Ordered Ventolin HFA 108 mcg/inh inhalation aerosol with adapter 2 puffs, Inhalation, 4 times a day, PRN for wheezing, # 1 each, 3 Refills, Maintenance, 05/13/23 11:21:00 EST, Aerosol, [facility] #[id number], Partial fill upon patient request if the prescription is for a schedule II opioid drug., 170, cm, 04/04... Start Date: 05/13/23 Status: Ordered Voltaren Arthritis Pain 1% topical gel = 4 Gm, Topically, 4 times a day, # 480 Gm, 4 Refills, Maintenance, 04/10/23 11:37:00 EST, [facility] #[id number], Partial fill upon patient request if the prescription is for a schedule II opioid drug., 4 Gm Topically 4 times a day, 170, cm, ... Start Date: 04/10/23 Status: Ordered [facility] PAIN RELIEVING LIDOCAINE PATCH 4% [facility] [...] Personnel Name: Roxi BROWN, Compa Hall Position: [facility] PCO Associate Professional Member Role: PCP Address: Address: [address] [facility] [place] [address]- [place] Name: Blaire Iglesias [place] Position: [facility] RN Member Role: Primary Care Nurse Name: Rhiannon Gibson Position: [facility] RN Member Role: Primary Care Nurse Name: Viral Jolly MD Position: [facility] Physician - Behavioral Health Member Role: Lifetime Consulting Physician Address: Address: [address] [place] [address]- Care Team Related Persons Name: MAIN MSOER Address: home [address] [place] [address] Name: JORGE GARCIA Address: [address] [place] [address] Name: LOREE SIFUENTES
--- OUTSIDE RECORDS SUMMARY | 2024-03-03 23:40 | XMS_ITS | Continuity of Care Document ---
Author Organization [facility] Address [address] [place] [address]- Care Team Providers Care Records And Information Manager Name Role Phone Fine OPENER, Compa Hall Primary Care Physician Encounter [facility] Date(s): 07/02/23 - 08/01/23 [facility] [address] [place] [address]- Allergies, Adverse Reactions, Alerts No Known Allergies Immunizations Given and Recorded Vaccine Date Status Refusal Reason SARS-CoV-2 (COVID-19) mRNA BNT-162b2 vac 09/08/20 Recorded SARS-CoV-2 (COVID-19) mRNA BNT-162n7 vac 08/18/20 Recorded pneumococcal 23-valent vaccine 10/21/16 Given tetanus-diphtheria toxoids (Td) 05/05/03 Recorded Medications albuterol-ipratropium 3 mg-0.5 mg/3 ml inhalation solution 3 mL, Inhalation, 4 times a day, PRN Wheezing/Shortness of Breath, DX: J45.909 do not use ventolineand Nebs at the same time, # 90 mL, 11 Refills, Maintenance, 03/25/23 12:53:00 EST, Solution, [facility] #[id number], 3 mL Inhalation 4 times a da... Start Date: 03/25/23 Status: Ordered Breo Ellipta 100 mcg-25 mcg/inh inhalation powder 1 puffs, Inhalation, Daily, [employer]., # 1 each, 3 Refills, 11/21/22 10:33:00 EDT, [facility] #[id number], 1 puffs Inhalation Daily,Instr:[employer]., 170, cm, 11/19/2313:19:00 EDT, Height, 94.4, kg, 11/08/22 14:35:00 E... Start Date: 11/21/22 Status: Ordered cloNIDine 0.1 mg oral tablet 0.05 mg, 0.5, tablet, By Mouth, 4 times a day, PRN, stay hydrated, # 120 tablet, Refills 0, Tot. Refills 0, Maintenance, anxiety, panic, withdrawal symptoms, 07/24/23 16:00:00 EDT, Route to Pharmacy Electronically, [facility] #[id number], Partial... Start Date: 07/24/23 Stop Date: 08/23/23 Status: Ordered duloxetine 30 mg oral enteric coated capsule 1 capsule = 30 mg, By Mouth, 2 times a day, do not crush or chew, # 180 capsule, 3 Refills, Maintenance, 12/20/22 17:50:00 EDT, [facility] #[id number], 170, cm, 12/06/22 0:43:00 EDT, Height, 94.4, kg, 11/08/22 14:35:00 EDT, Dry Weight Start Date: 12/20/22 Status: Ordered gabapentin 300 mg oral capsule 300 mg, 1, capsule, By Mouth, 3 times a day, # 270 capsule, Refills 1, Tot. Refills 1, Maintenance,02/12/23 10:36:00 EDT, Route to Pharmacy Electronically, [facility] #[id number], Partial fill upon patient request, 170, cm, 01/31/23 10:06:00 EDT... Start Date: 02/12/23 Status: Ordered hydroxychloroquine 200 mg oral tablet 1, tablet, By Mouth, 2 times a day, # 60 tablet, Refills 5, Tot. Refills 5, 04/15/23 13:55:00 EST, Route to Pharmacy Electronically, [facility] #[id number], 170, cm, 01/31/23 10:06:00 EDT, Height, 94.4, [...] 02/12/23 10:37:00 EDT, Route to Pharmacy Electronically, [facility] #[id number], 170, cm, 01/31/23 10:06:00EDT, Height, 94.4, kg, 11/08/22 14:35:00 EDT, Dry W... Start Date: 02/12/23 Stop Date: 08/11/23 Status: Ordered Suboxone 8 mg-2 mg Sublingual Film 1 film, Sublingual, 3 times a day, dissolve under the tongue, # 90 film, 1 Refills, Maintenance, 07/13/23 11:49:00 EDT, [facility] #[id number], Partial fill upon patient request if the prescription is for a schedule II opioid drug. [facility] [id number];... Start Date: 07/13/23 Stop Date: 09/11/23 Status: Ordered tiZANidine 2 mg oral tablet 2 mg, 1, tablet, By Mouth, 3 times a day, # 84 tablet, Refills 1, Tot. Refills 1, Maintenance, 07/01/23 16:53:00 EST, Route to Pharmacy Electronically, [facility] #[id number], Partial fill upon patient request if the prescription is for a schedul... Start Date: 07/01/23 Stop Date: 08/26/23 Status: Ordered Trelegy Ellipta 200 mcg-62.5 mcg-25 mcg/inh inhalation powder 1 puffs, Inhalation, Daily, at the same time every day, # 3 each, 3 Refills, Maintenance, 07/23/23 16:56:00 EDT, Powder, [facility] #[id number], Partial fill upon patient request if the prescription is for a schedule II opioid drug., 1 puffs Inha... Start Date: 07/23/23 Stop Date: 07/17/24 Status: Ordered Ventolin HFA 108 mcg/inh inhalation aerosol with adapter 2 puffs, Inhalation, 4 times a day, PRN for wheezing, # 1 each, 3 Refills, Maintenance, 05/28/23 12:34:00 EST, Aerosol, [facility] #[id number], Partial fill upon patient request if the prescription is for a schedule II opioid drug., 170, cm, 04/04... Start Date: 05/28/23 Status: Ordered Voltaren Arthritis Pain 1% topical gel = 4 Gm, Topically, 4 times a day, # 480 Gm, 4 Refills, Maintenance, 07/24/23 14:31:00 EDT, [facility] #[id number], Partial fill upon patient request if the [...] Team Personnel Name: Compa Diane NP Position: [facility] Associate Professional Member Role: PCP Address: Address: [address] [place] [address] [place] [address]- Name: Blaire Iglesias [place] Position: [facility] RN Member Role: Primary Care Nurse Name: Rhiannon Gibson Position: [facility] RN Member Role: Primary Care Nurse Name: Viral Jolly MD Position: [facility] Physician - Behavioral Health Member Role: Lifetime Consulting Physician Address: Address: [address] [place] [address]- Care Team Related Persons Name: MAIN MOSER Address: home [address] [place] [address] Name: JORGE GARCIA Address: [address] [place] [address] Name: LOREE SIFUENTES
--- OUTSIDE RECORDS SUMMARY | 2024-03-03 23:40 | XMS_ITS | Continuity of Care Document ---
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 Hall Primary Care Physician Encounter [facility] Date(s): 12/11/23 - 01/10/24 [facility] [place] [address] [place] [address]- Allergies, Adverse Reactions, Alerts No Known Allergies Immunizations Given and Recorded Vaccine Date Status Refusal Reason SARS-CoV-2 (COVID-19) mRNA BNT-162b2 vac 09/08/20 Recorded SARS-CoV-2 (COVID-19) mRNA BNT-162r9 vac 08/18/20 Recorded pneumococcal 23-valent vaccine 10/21/16 Given tetanus-diphtheria toxoids (Td) 05/05/03 Recorded Medications albuterol-ipratropium 3 mg-0.5 mg/3 ml inhalation solution 3 mL, Inhalation, 4 times a day, PRN Wheezing/Shortness of Breath, DX: J45.909 do not use ventolineand Nebs at the same time, # 90 mL, 11 Refills, Maintenance, 03/25/23 12:53:00 EST, Solution, [facility] #[id number], 3 mL Inhalation 4 times a da... Start Date: 03/25/23 Status: Ordered Breo Ellipta 100 mcg-25 mcg/inh inhalation powder 1 puffs, Inhalation, Daily, RINSE MOUTH AFTERWARDS., # 1 each, 3 Refills, 11/21/22 10:33:00 EDT, [facility] #[id number], 1 puffs Inhalation Daily,Instr:RINSE MOUTH AFTERWARDS., 170, cm, 11/19/2313:19:00 EDT, Height, 94.4, kg, 11/08/22 14:35:00 E... Start Date: 11/21/22 Status: Ordered calcium (as citrate)-vitamin D 315 mg-250 intl units oral tablet 2 tablet, By Mouth, 2 times a day, # 120 tablet, 11 Refills, Maintenance, 10/27/23 11:47:00 EDT, Tablet, [facility] #[id number], Partial fill upon patient request if the [...] 09/18/23 10:13:00 EDT, Route to Pharmacy Electronically, [facility] #[id number], Partial... Start Date: 09/18/23 Stop Date: 03/16/24 Status: Ordered duloxetine 30 mg oral enteric coated capsule 1 capsule = 30 mg, By Mouth, 2 times a day, do not crush or chew, # 180 capsule, 3 Refills, Maintenance, 12/15/23 12:15:00 EDT, [facility] #[id number], 170, cm, 11/26/23 7:18:00 EDT, Height, 100, kg, 10/09/23 2:02:00 EDT, Dry Weight Start Date: 12/15/23 Status: Ordered duloxetine 30 mg oral enteric coated capsule 1 capsule = 30 mg, By Mouth, 2 times a day, do not crush or chew, # 180 capsule, 3 Refills, Maintenance, 12/20/22 17:50:00 EDT, [facility] #[id number], 170, cm, 12/06/22 0:43:00 EDT, Height, 94.4, kg, 11/08/22 14:35:00 EDT, Dry Weight Start Date: 12/20/22 Status: Ordered fluconazole 150 mg oral tablet 1 tablet = 150 mg, By Mouth, Once, For treatment of Yeast infection, repeat dose if still having symptoms in 72 hours, # 2 tablet, 0 Refills, Soft Stop, 12/19/23 10:58:00 EDT, Tablet, [facility] #[id number], Partial fill upon patient request if t... Start Date: 12/19/23 Status: Ordered gabapentin 300 mg oral capsule 300 mg, 1, capsule, By Mouth, 3 times a day, # 270 capsule, Refills 1, Tot. Refills 1, Maintenance,12/15/23 12:15:00 EDT, Route to Pharmacy Electronically, [facility] #[id number], Partial fill upon patient request, 170, cm, 11/26/23 7:18:00 EDT,... Start Date: 12/15/23 Status: Ordered gabapentin 300 mg oral capsule 300 mg, 1, capsule, By Mouth, 3 times a day, # 270 capsule, Refills 1, Tot. Refills 1, Maintenance,08/11/23 9:29:00 EDT, Route to Pharmacy Electronically, [facility] #[id number], Partial fill upon patient request, 170, cm, 07/23/23 16:32:00 EDT,... Start Date: 08/11/23 Status: Ordered hydroxychloroquine 200 mg oral tablet 1, tablet, By Mouth, 2 times a day, # 60 tablet, Refills 5, Tot. Refills 5, 12/25/23 9:59:00 EDT, Route to Pharmacy Electronically, [facility] #[id number], 170, cm, 12/19/23 10:38:00 EDT, Height, 100, kg, 10/09/23 2:02:00 EDT, Dry Weight Start Date: 12/25/23 Status: Ordered hydrOXYzine hydrochloride 25 mg oral tablet See Instructions, TAKE 1 TABLET BY MOUTH TWICE DAILY NEEDED FOR ANXIETY, # 60 tablet, 5 Refills,Maintenance, 09/18/23 10:13:00 EDT, [facility] #[id number], 170, cm, 07/23/23 16:32:00 EDT, Height, 100, kg, 04/20/23 21:48:00 EST, Dry Weight Start Date: 09/18/23 Status: Ordered NEBULIZER MACHINE AND TUBING NEBULIZER MACHINE AND TUBING, See Instructions, PRN Wheezing/Shortness of Breath, # 1 each, Refills0, Tot. Refills 0, Maintenance, USE NEEDED FOR WHEEZING DX:, 06/17/23 15:49:00 EST, Supply Start Date: 06/17/23 Status: Ordered NuLYTELY [place] oral powder for reconstitution 240 mL, By Mouth, Every 10 minutes, # 1 each, 0 Refills, Maintenance, 12/03/23 9:52:00 EDT, REC Powder, [facility] #[id number], Partial fill upon patient request if the prescription is for a schedule II opioid drug., 170, cm, 11/26/23 7:18:00 EDT... Start Date: 12/03/23 Status: Ordered PHENobarbital 30 mg oral tablet 1 tablet = 30 mg, By Mouth, 2 times a day, # 60 tablet, 1 Refills, Maintenance, 11/20/23 16:42:00 EDT, Tablet, [facility] #[id number], IF NOT COVERED, please use goodrx coupon and allow pt to pay OOP; $9.09; BIN [id number]; [facility]; Group [address]; Membe... Start Date: 11/20/23 Status: Ordered PHENobarbital 30 mg oral tablet 1 tablet = 30 mg, By Mouth, 2 times a day, # 60 tablet, 1 Refills, Maintenance, 12/15/23 12:14:00 EDT, Tablet, [facility] #[id number], IF NOT COVERED, please use goodrx coupon and allow pt to pay OOP; $9.09; BIN [id number]; [facility]; [address]; Membe... Start Date: 12/15/23 Status: Ordered risperiDONE 1 mg oral tablet 1 mg, 1, tablet, By Mouth, Daily, # 90 tablet, Refills 1, Tot. Refills 1, Maintenance, 08/11/23 9:29:00 EDT, Route to Pharmacy Electronically, [facility] #[id number], 170, cm, 07/23/23 16:32:00 EDT, Height, 100, kg, 04/20/23 21:48:00 EST, Dry Weight Start Date: 08/11/23 Stop Date: 02/07/24 Status: Ordered Suboxone 8 mg-2 mg Sublingual Film 3 film, Sublingual, Daily, or as directed, # 90 film, 0 Refills, Maintenance, 12/16/23 14:10:00 EDT, [facility] #[id number], Partial fill upon patient request if the prescription is for a schedule II opioid drug. ALVINA [id number], 3 film Sublingual... Start Date: 12/16/23 Stop Date: 01/15/24 Status: Ordered tiZANidine 2 mg oral tablet 2 mg, 1, tablet, By Mouth, 3 times a day, # 84 tablet, Refills 1, Tot. Refills 1, Maintenance, 12/26/23 9:21:00 EDT, Route to Pharmacy Electronically, [facility] #[id number], Partial fill upon patient request if the prescription is for a schedule... Start Date: 12/26/23 Stop Date: 02/20/24 Status: Ordered traZODone 50 mg oral tablet 50 mg, 1, tablet, By Mouth, Daily at bedtime, as needed for sleep, # 90 tablet, Refills 0, Tot. Refills 0, Maintenance, 12/15/23 12:16:00 EDT, Route to Pharmacy Electronically, [facility] #[id number], Partial fill upon patient request if the pres... Start Date: 12/15/23 Status: Ordered Trelegy Ellipta 200 mcg-62.5 mcg-25 mcg/inh inhalation powder 1 puffs, Inhalation, Daily, at the same time every day, # 3 each, 3 Refills, Maintenance, 07/23/23 16:56:00 EDT, Powder, [facility] #[id number], Partial fill upon patient request if the prescription is for a schedule II opioid drug., 1 puffs Inha... Start Date: 07/23/23 Stop Date: 07/17/24 Status: Ordered Ultram 50 mg oral tablet 1 tablet = 50 mg, By Mouth, Every 12 hours, PRN for pain, # 20 tablet, 0 Refills, Maintenance, 10/14/23 9:32:00 EDT, Tablet, [facility] #[id number], Partial fill upon patient request if the prescription is for a schedule II opioid drug., 170, cm,... Start Date: 10/14/23 Status: Ordered Ventolin HFA 108 mcg/inh inhalation aerosol with adapter 2 puffs, Inhalation, 4 times a day, PRN for wheezing, # 1 each, 3 Refills, Maintenance, 05/28/23 12:34:00 EST, Aerosol, [facility] #[id number], Partial fill upon patient request if the prescription is for a schedule II opioid drug., 170, cm, 04/04... Start Date: 05/28/23 Status: Ordered Voltaren Arthritis Pain 1% topical gel = 4 Gm, Topically, 4 times a day, # 480 Gm, 4 Refills, Maintenance, 07/24/23 14:31:00 EDT, [facility] #[id number], Partial fill upon patient request if the [...] Team Personnel Name: Compa Diane NP Position: [facility] PCO Associate Professional Member Role: PCP Address: Address: [address] [place] [address] [place] [address]- Name: Blaire Iglesias [place] Position: [facility] Office Staff Member Role: Primary Care Nurse Name: Rhiannon Li [place] Position: [facility] Staff Member Role: Primary Care Nurse Name: Viral Jolly MD Position: [facility] Physician - Behavioral Health Member Role: Lifetime Consulting Physician Address: Address: [address] [place] [address] [place] [address]- Care Team Related Persons Name: MAIN MOSER Address: home [address] [place] [address] Name: JORGE GARCIA Address: home [address] [place] [address] Name: LOREE SIFUENTES
--- OUTSIDE RECORDS SUMMARY | 2024-03-03 23:40 | XMS_ITS | Continuity of Care Document ---
Author Organization [facility] [place] Address [address] [place] [address]- Care Team Providers Care Weir Fisher Name Role Phone Gen BROWN, Claribel Primary Care Physician [phone] Encounter [facility] Date(s): 02/25/22 - 03/28/22 [facility] [place] [address] [place], [place] [address] Attending Physician: Claribel Blevins NP Allergies, Adverse Reactions, Alerts No Known [...] # 60 each, 1 Refills, [id number], 30, INHALE 1 PUFF BY MOUTH EVERY DAY. RINSE MOUTH AFTERWARDS., 170, cm, 03/07/21 11:09:00 EDT, Height, 107.3, kg, 06/22/20 13:29:00 EST, Dry Weight Start Date: 11/12/21 Status: Ordered diclofenac 1% topical gel = 2 Gm, Topically, 2 times a day, # 100 Gm, 2 Refills, 01/22/22 17:37:00 EDT, [facility] #[id number], 25, 2 Gm Topically 2 times a day, 170, cm, 03/07/21 11:09:00 EDT, Height, 107.3, kg, 06/22/20 13:29:00 EST, Dry Weight Start Date: 01/22/22 Status: Ordered duloxetine 30 mg oral enteric coated capsule 1 capsule = 30 mg, By Mouth, 2 times a day, do not crush or chew, # 180 capsule, 3 Refills, Maintenance, 02/19/22 14:28:00 EDT, [facility] #[id number], 170, cm, 03/07/21 11:09:00 EDT, Height, 107.3, kg, 06/22/20 13:29:00 EST, Dry Weight Start Date: 02/19/22 Status: Ordered famotidine 20 mg oral tablet 20 mg, 1, tablet, By Mouth, Daily, OV 5-6-20, # 30 tablet, Refills 5, Tot. Refills 5, Maintenance, 08/21/20 12:25:00 EDT, Route to Pharmacy Electronically, [facility]/pharm[facility] #[id number], 170, cm, 08/16/20 15:32:00 EDT, Height, 107.3, kg, 06/22/20 13:29:00 EST, D... Start Date: 08/21/20 Status: Ordered gabapentin 300 mg oral capsule 300 mg, 1, capsule, By Mouth, 3 times a day, # 270 capsule, Refills 1, Tot. Refills 1, Maintenance,08/21/21 14:14:00 EDT, Route to Pharmacy Electronically, [facility] #[id number], Partial fill upon patient request, 170, cm, 03/07/21 11:09:00 EDT... Start Date: 08/21/21 Status: Ordered gabapentin 300 mg oral capsule 300 mg, 1, capsule, By Mouth, 3 times a day, # 270 capsule, Refills 3, Tot. Refills 3, Maintenance,02/19/22 14:28:00 EDT, Route to Pharmacy Electronically, [facility] #[id number], Partial fill upon patient request, 170, cm, 03/07/21 11:09:00 EDT... Start Date: 02/19/22 Status: Ordered hydroxychloroquine 200 mg oral tablet 1, tablet, By Mouth, 2 times a day, # 60 tablet, Refills 5, Route to Pharmacy Electronically, [facility], 170, cm, 03/07/21 11:09:00 EDT, Height, 107.3, [...] 18 Gm, 5 Refills, 03/20/22 16:08:00 EST, [facility] #[id number], 2 puffs Inhalation Every 4 to 6 hours,PRN: NEEDED FOR SHORTNESS OF BREATH OR WHEEZING... Start Date: 03/20/22 Status: Ordered risperiDONE 1 mg oral tablet 1 mg, 1, tablet, By Mouth, Daily, # 90 tablet, Refills 3, Tot. Refills 3, Maintenance, 02/19/22 14:27:00 EDT, Route to Pharmacy Electronically, [facility] #[id number], 170, cm, 03/07/21 11:09:00EDT, Height, 107.3, kg, 06/22/20 13:29:00 EST, Dry... Start Date: 02/19/22 Stop Date: 02/14/23 Status: Ordered Suboxone 8 mg-2 mg Sublingual Film 1 film, Sublingual, 3 times a day, dissolve under the tongue, # 90 film, 1 Refills, Maintenance, 02/08/22 13:04:00 EDT, [facility] #[id number], Partial fill upon patient request if the prescription is for a schedule II opioid drug. ALVINA [id number],... Start Date: 02/08/22 Stop Date: 04/09/22 Status: Ordered Suboxone 8 mg-2 mg Sublingual Film 1 film, Sublingual, 3 times a day, dissolve under the tongue, # 90 film, 1 Refills, Maintenance, 12/10/21 14:40:00 EDT, [facility] #[id number], Partial fill upon patient request if the prescription is for a schedule II opioid drug. ALVINA [id number],... Start Date: 12/10/21 Stop Date: 02/08/22 Status: Ordered Suboxone 8 mg-2 mg sublingual film 3 film, Sublingual, Daily, [id number], # 90 film, 1 Refills, Maintenance, 10/21/21 9:55:00 EDT, [facility] #[id number], 3 film Sublingual Daily,x30 days,Instr:[id number], 170, cm, 03/07/21 11:09:00 EDT, Height, 107.3, kg, 06/22/20 13:29:00 EST, Dry... Start Date: 10/21/21 Stop Date: 12/20/21 Status: Ordered traZODone 50 mg oral tablet 50 mg, 1, tablet, By Mouth, Daily at bedtime, PRN, as needed, # 90 tablet, Refills 3, Tot. Refills 3, Maintenance, Sleep, 02/19/22 14:27:00 EDT, Route to Pharmacy Electronically, [facility]#[id number], 170, cm, 03/07/21 11:09:00 EDT, Height, 107... Start Date: 02/19/22 Status: Ordered Vitamin D3 1000 intl units oral tablet 1 tablet = 1,000 International_Units, By Mouth, Daily, # 30 tablet, 11 Refills, Maintenance, 10/04/19 11:54:00 EDT, [facility]t, [id number], 163, cm, 10/04/19 11:27:00 EDT, Height, 105, kg, 03/01/19 17:26:00 EDT, Dry Weight Start Date: 6/1/20 Status: Ordered Problem List Condition Confirmation Course [...] Care Team Personnel Name: Blaire Crandall Position: [facility] RN Member Role: Primary Care Nurse Name: Rhiannon Gibson Position: [facility] RN Member Role: Primary Care Nurse Name: Claribel Blevins NP Position: [facility] PCO Associate Professional Member Role: PCP Address: Address: [address] [place] [id number]- [place] Name: Viral Jolly MD Position: [facility] Psychiatry MD Member Role: Lifetime Consulting Physician Address: Address: [address] [place] [address]- [place] Care Team Related Persons Name: MAIN MOSER Address: home [address] [place] [address] Name: JORGE GARCIA Address: [address] [place] [address]
--- OUTSIDE RECORDS SUMMARY | 2024-03-03 23:40 | XMS_ITS | Continuity of Care Document ---
Author Organization [facility] [place] Address [address] [place] [address]- Care Team Providers Care Sql Report Writer Name Role Phone Angela BROWN, Robyn Martinez Primary Care Physician Encounter [facility] Date(s): 06/22/20 - 07/22/20 [facility] [place] [address] [place] [address]- Allergies, Adverse Reactions, Alerts Substance Reaction Severity [...] Refills, Maintenance, 06/19/20 16:07:00 EST, [id number], 20, INHALE 2 PUFFS BY MOUTH EVERY 4 TO 6 HOURS NEEDED FOR WHEEZE FOR SHORTNESS... Start Date: 06/19/20 Status: Ordered Suboxone 8 mg-2 mg sublingual film 2.5 FILMS, Sublingual, Daily, [id number], # 75 film, 1 Refills, Maintenance, 04/26/20 16:38:00 EST, [facility] #[id number], 2.5 FILMS Sublingual Daily,Instr:[id number], 163, cm, 04/26/20 14:26:00 EST, Height, 105, [...]
--- OUTSIDE RECORDS SUMMARY | 2024-03-03 23:40 | XMS_ITS | Continuity of Care Document ---
Author Organization [facility] Address [address] [place] [address]- Care Team Providers Care Thermite Welder Name Role Phone Angela BROWN, Robyn Martinez Primary Care Physician Encounter [facility] Date(s): 08/22/20 - 09/21/20 [facility] [address] [place] [address]- Allergies, Adverse Reactions, Alerts Substance Reaction Severity [...] Unknown, 11 Refills, Maintenance, 06/19/20 16:07:00 EST, [id number], 20, INHALE 2 PUFFS BY MOUTH EVERY 4 TO 6 HOURS NEEDED FOR WHEEZE FOR SHORTNESS... Start Date: 06/19/20 Status: Ordered Suboxone 8 mg-2 mg sublingual film 2.5 FILMS, Sublingual, Daily, [id number], # 75 film, 1 Refills, Maintenance, 04/26/20 16:38:00 EST, [facility] #[id number], 2.5 FILMS Sublingual Daily,Instr:[id number], 163, cm, 04/26/20 14:26:00 EST, Height, 105, [...]
--- OUTSIDE RECORDS SUMMARY | 2024-03-03 23:41 | XMS_ITS | Continuity of Care Document ---
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 Start Date: 03/25/23 Status: Ordered Breo Ellipta 100 mcg-25 mcg/inh inhalation powder 1 puffs, Inhalation, Daily, [employer]., # 1 each, 3 Refills, 11/21/22 10:33:00 EDT, [facility] #[id number], 1 puffs Inhalation Daily,Instr:[employer]., 170, cm, 11/19/2313:19:00 EDT, Height, 94.4, kg, 11/08/22 14:35:00 E... Start Date: 11/21/22 Status: Ordered calcium (as citrate)-vitamin D 315 mg-250 intl units oral tablet 2 tablet, By Mouth, 2 times a day, # 120 tablet, 11 Refills, Maintenance, 10/27/23 11:47:00 EDT, Tablet, [facility] #[id number], Partial fill upon patient request if the prescription is for a schedule II opioid drug., 2 tablet By Mouth 2 times a... Start Date: 10/27/23 Status: Ordered cephalexin monohydrate 500 mg oral tablet 1 tablet = 500 mg, By Mouth, 2 times a day, for 7 days, # 14 tablet, 0 Refills, Acute 12/26/23 10:58:00 EDT, 12/19/23 10:58:00 EDT, Tablet, [facility] #[id number], Partial fill upon patient request if the prescription is for a schedule II opioid... Start Date: 12/19/23 Stop Date: 12/26/23 Status: Ordered cloNIDine 0.1 mg oral tablet 0.05 mg, 0.5, tablet, By Mouth, 4 times a day, PRN, stay hydrated, # 120 tablet, Refills 5, Tot. Refills 5, Maintenance, anxiety, panic, withdrawal symptoms, 09/18/23 10:13:00 EDT, Route to Pharmacy Electronically, [facility] #[id number], Partial... Start Date: 09/18/23 Stop Date: 03/16/24 Status: Ordered duloxetine 30 mg oral enteric coated capsule 1 capsule = 30 mg, By Mouth, 2 times a day, do not crush or chew, # 180 capsule, 3 Refills, Maintenance, 12/15/23 12:15:00 EDT, [facility] #[id number], 170, cm, 11/26/23 7:18:00 EDT, Height, 100, kg, 10/09/23 2:02:00 EDT, Dry Weight Start Date: 12/15/23 Status: Ordered duloxetine 30 mg oral enteric coated capsule 1 capsule = 30 mg, By Mouth, 2 times a day, do not crush or chew, # 180 capsule, 3 Refills, Maintenance, 12/20/22 17:50:00 EDT, [facility] #[id number], 170, cm, 12/06/22 0:43:00 EDT, Height, 94.4, kg, 11/08/22 14:35:00 EDT, Dry Weight Start Date: 12/20/22 Status: Ordered fluconazole 150 mg oral tablet 1 tablet = 150 mg, By Mouth, Once, For treatment of Yeast infection, repeat dose if still having symptoms in 72 hours, # 2 tablet, 0 Refills, Soft Stop, 12/19/23 10:58:00 EDT, Tablet, [facility] #[id number], Partial fill upon patient request if t... Start Date: 12/19/23 Status: Ordered gabapentin 300 mg oral capsule 300 mg, 1, capsule, By Mouth, 3 times a day, # 270 capsule, Refills 1, Tot. Refills 1, Maintenance,12/15/23 12:15:00 EDT, Route to Pharmacy Electronically, [facility] #[id number], Partial fill upon patient request, 170, cm, 11/26/23 7:18:00 EDT,... Start Date: 12/15/23 Status: Ordered gabapentin 300 mg oral capsule 300 mg, 1, capsule, By Mouth, 3 times a day, # 270 capsule, Refills 1, Tot. Refills 1, Maintenance,08/11/23 9:29:00 EDT, Route to Pharmacy Electronically, [facility] #[id number], Partial fill upon patient request, 170, cm, 07/23/23 16:32:00 EDT,... Start Date: 08/11/23 Status: Ordered hydroxychloroquine 200 mg oral tablet 1, tablet, By Mouth, 2 times a day, # 60 tablet, Refills 5, Tot. Refills 5, 04/15/23 13:55:00 EST, Route to Pharmacy Electronically, [facility] #[id number], 170, cm, 01/31/23 10:06:00 EDT, Height, 94.4, kg, 11/08/22 14:35:00 EDT, Dry Weight Start Date: 04/15/23 Status: Ordered hydrOXYzine hydrochloride 25 mg oral tablet See Instructions, TAKE 1 TABLET BY MOUTH TWICE DAILY NEEDED FOR ANXIETY, # 60 tablet, 5 Refills,Maintenance, 09/18/23 10:13:00 EDT, [facility] #[id number], 170, cm, 07/23/23 16:32:00 EDT, Height, 100, kg, 04/20/23 21:48:00 EST, Dry Weight Start Date: 09/18/23 Status: Ordered NEBULIZER MACHINE AND TUBING NEBULIZER MACHINE AND TUBING, See Instructions, PRN Wheezing/Shortness of Breath, # 1 each, Refills0, Tot. Refills 0, Maintenance, USE NEEDED FOR WHEEZING DX:, 06/17/23 15:49:00 EST, Supply Start Date: 06/17/23 Status: Ordered NuLYTELY Lemon [place] oral powder for reconstitution 240 mL, By Mouth, Every 10 minutes, # 1 each, 0 Refills, Maintenance, 12/03/23 9:52:00 EDT, REC Powder, [facility] #[id number], Partial fill upon patient request if the prescription is for a schedule II opioid drug., 170, cm, 11/26/23 7:18:00 EDT... Start Date: 12/03/23 Status: Ordered PHENobarbital 30 mg oral tablet 1 tablet = 30 mg, By Mouth, 2 times a day, # 60 tablet, 1 Refills, Maintenance, 11/20/23 16:42:00 EDT, Tablet, [facility] #[id number], IF NOT COVERED, please use goodrx coupon and allow pt to pay OOP; $9.09; BIN [id number]; [facility]; Group [address]; Membe... Start Date: 11/20/23 Status: Ordered PHENobarbital 30 mg oral tablet 1 tablet = 30 mg, By Mouth, 2 times a day, # 60 tablet, 1 Refills, Maintenance, 12/15/23 12:14:00 EDT, Tablet, [facility] #[id number], IF NOT COVERED, please use goodrx coupon and allow pt to pay OOP; $9.09; BIN [id number]; [facility]; Group [address]; Membe... Start Date: 12/15/23 Status: Ordered risperiDONE 1 mg oral tablet 1 mg, 1, tablet, By Mouth, Daily, # 90 tablet, Refills 1, Tot. Refills 1, Maintenance, 08/11/23 9:29:00 EDT, Route to Pharmacy Electronically, [facility] #[id number], 170, cm, 07/23/23 16:32:00 EDT, Height, 100, kg, 04/20/23 21:48:00 EST, Dry Weight Start Date: 08/11/23 Stop Date: 02/07/24 Status: Ordered Suboxone 8 mg-2 mg Sublingual Film 3 film, Sublingual, Daily, or as directed, # 90 film, 0 Refills, Maintenance, 12/16/23 14:10:00 EDT, [facility] #[id number], Partial fill upon patient request if the prescription is for a schedule II opioid drug. ALVINA [id number], 3 film Sublingual... Start Date: 12/16/23 Stop Date: 01/15/24 Status: Ordered tiZANidine 2 mg oral tablet 2 mg, 1, tablet, By Mouth, 3 times a day, # 84 tablet, Refills 1, Tot. Refills 1, Maintenance, 09/08/23 18:10:00 EDT, Route to Pharmacy Electronically, [facility] #[id number], Partial fill upon patient request if the prescription is for a schedul... Start Date: 09/08/23 Stop Date: 11/03/23 Status: Ordered traZODone 50 mg oral tablet 50 mg, 1, tablet, By Mouth, Daily at bedtime, as needed for sleep, # 90 tablet, Refills 0, Tot. Refills 0, Maintenance, 12/15/23 12:16:00 EDT, Route to Pharmacy Electronically, [facility] #[id number], Partial fill upon patient request if the pres... Start Date: 12/15/23 Status: Ordered Trelegy Ellipta 200 mcg-62.5 mcg-25 mcg/inh inhalation powder 1 puffs, Inhalation, Daily, at the same time every day, # 3 each, 3 Refills, Maintenance, 07/23/23 16:56:00 EDT, Powder, [facility] #[id number], Partial fill upon patient request if the prescription is for a schedule II opioid drug., 1 puffs Inha... Start Date: 07/23/23 Stop Date: 07/17/24 Status: Ordered Ultram 50 mg oral tablet 1 tablet = 50 mg, By Mouth, Every 12 hours, PRN for pain, # 20 tablet, 0 Refills, Maintenance, 10/14/23 9:32:00 EDT, Tablet, [facility] #[id number], Partial fill upon patient request if the prescription is for a schedule II opioid drug., 170, cm,... Start Date: 10/14/23 Status: Ordered Ventolin HFA 108 mcg/inh inhalation aerosol with adapter 2 puffs, Inhalation, 4 times a day, PRN for wheezing, # 1 each, 3 Refills, Maintenance, 05/28/23 12:34:00 EST, Aerosol, [facility] #[id number], Partial fill upon patient request if the prescription is for a schedule II opioid drug., 170, cm, 04/04... Start Date: 05/28/23 Status: Ordered Voltaren Arthritis Pain 1% topical gel = 4 Gm, Topically, 4 times a day, # 480 Gm, 4 Refills, Maintenance, 07/24/23 14:31:00 EDT, [facility] #[id number], Partial fill upon patient request if the [...] Team Personnel Name: Compa Diane NP Position: [facility] PCO Associate Professional Member Role: PCP Address: Address: [address] [place] [address] [place] [address]- Name: Blaire Iglesias [place] Position: [facility] Office Staff Member Role: Primary Care Nurse Name: Rhiannon Li [place] Position: [facility] Office Staff Member Role: Primary Care Nurse Name: Viral Jolly MD Position: [facility] Physician - Behavioral Health Member Role: [employer] Consulting Physician Address: Address: [address] [place] [address]- Care Team Related Persons Name: MAIN MOSER Address: home [address] [place] [address] Name: JORGE GARCIA Address: home [address] [place] [address] Name: LOREE SIFUENTES
--- OUTSIDE RECORDS SUMMARY | 2024-03-03 23:41 | XMS_ITS | Continuity of Care Document ---
Author Organization [facility] Address [address] [place] [address]- Care Team Providers Care Associate Professor Of Management Name Role Phone Fine STEPHANIE, Compa Hall Primary Care Physician Encounter [facility] Date(s): 10/05/23 - 10/05/[address] [address]- Discharge Disposition: A-D/C Home Attending Physician: Diomedes Kelley MD Admitting Physician: Diomedes Kelley MD Referring Physician: Not on Staff, Referring [...] 11 Refills, Maintenance, 03/25/23 12:53:00 EST, Solution, [facility] #[id number], 3 mL Inhalation 4 times a da... Start Date: 03/25/23 Status: Ordered Breo Ellipta 100 mcg-25 mcg/inh inhalation powder 1 puffs, Inhalation, Daily, RINSE MOUTH AFTERWARDS., # 1 each, 3 Refills, 11/21/22 10:33:00 EDT, [facility] #[id number], 1 puffs Inhalation Daily,Instr:RINSE MOUTH AFTERWARDS., 170, cm, 11/19/2313:19:00 EDT, Height, 94.4, kg, 11/08/22 14:35:00 E... Start Date: 11/21/22 Status: Ordered cloNIDine 0.1 mg oral tablet 0.05 mg, 0.5, tablet, By Mouth, 4 times a day, PRN, stay hydrated, # 120 tablet, Refills 5, Tot. Refills 5, Maintenance, anxiety, panic, withdrawal symptoms, 09/18/23 10:13:00 EDT, Route to Pharmacy Electronically, [facility] #[id number], Partial... Start Date: 09/18/23 Stop Date: 03/16/24 Status: Ordered duloxetine 30 mg oral enteric coated capsule 1 capsule = 30 mg, By Mouth, 2 times a day, do not crush or chew, # 180 capsule, 3 Refills, Maintenance, 12/20/22 17:50:00 EDT, [facility] #[id number], 170, cm, 12/06/22 0:43:00 EDT, Height, 94.4, kg, 11/08/22 14:35:00 EDT, Dry Weight Start Date: 12/20/22 Status: Ordered gabapentin 300 mg oral capsule 300 mg, 1, capsule, By Mouth, 3 times a day, # 270 capsule, Refills 1, Tot. Refills 1, Maintenance,08/11/23 9:29:00 EDT, Route to Pharmacy Electronically, [facility] #[id number], Partial fill upon patient request, 170, cm, 07/23/23 16:32:00 EDT,... Start Date: 08/11/23 Status: Ordered hydroxychloroquine 200 mg oral tablet 1, tablet, By Mouth, 2 times a day, # 60 tablet, Refills 5, Tot. Refills 5, 04/15/23 13:55:00 EST, Route to Pharmacy Electronically, [facility] #[id number], 170, cm, 01/31/23 10:06:00 EDT, Height, 94.4, kg, 11/08/22 14:35:00 EDT, Dry Weight Start Date: 04/15/23 Status: Ordered hydrOXYzine hydrochloride 25 mg oral tablet See Instructions, TAKE 1 TABLET BY MOUTH TWICE DAILY NEEDED FOR ANXIETY, # 60 tablet, 5 Refills,Maintenance, 09/18/23 10:13:00 [id number] 170, cm, 07/23/23 16:32:00 EDT, Height, 100, kg, 04/20/23 21:48:00 EST, Dry Weight Start Date: 09/18/23 Status: Ordered NEBULIZER MACHINE AND TUBING NEBULIZER MACHINE AND TUBING, See Instructions, PRN Wheezing/Shortness of Breath, # 1 each, Refills0, Tot. Refills 0, Maintenance, USE NEEDED FOR WHEEZING DX:, 06/17/23 15:49:00 EST, Supply Start Date: 06/17/23 Status: Ordered oxyCODONE 5 mg oral tablet 5 mg, 1, tablet, By Mouth, Every 6 hours, PRN, for 3 days, # 12 tablet, Refills 0, Tot. Refills 0, Acute 10/08/23 22:34:00 EDT, as needed for pain, 10/05/23 22:34:00 EDT, [id number], Partial fill upon... Start Date: 10/05/23 Stop Date: 10/08/23 Status: Ordered oxyCODONE 5 mg oral tablet 5 mg, Tablet, By Mouth, Once, STAT, 10/05/23 22:35:00 EDT, Stop date 10/05/23 22:35:00 EDT Start Date: 10/05/23 Stop Date: 10/05/23 Status: Completed risperiDONE 1 mg oral tablet 1 mg, 1, tablet, By Mouth, Daily, # 90 tablet, Refills 1, Tot. Refills 1, Maintenance, 08/11/23 9:29:00 EDT, Route to Pharmacy Electronically, [facility] #[id number], 170, cm, 07/23/23 16:32:00 EDT, Height, 100, kg, 04/20/23 21:48:00 EST, Dry Weight Start Date: 08/11/23 Stop Date: 02/07/24 Status: Ordered Suboxone 8 mg-2 mg Sublingual Film 1 film, Sublingual, 3 times a day, dissolve under the tongue, # 90 film, 1 Refills, Maintenance, 09/12/23 9:01:00 EDT, [facility] #[id number], Partial fill upon patient request if the prescription is for a schedule II opioid drug. ALVINA [id number];... Start Date: 09/12/23 Stop Date: 11/11/23 Status: Ordered tiZANidine 2 mg oral tablet 2 mg, 1, tablet, By Mouth, 3 times a day, # 84 tablet, Refills 1, Tot. Refills 1, Maintenance, 09/08/23 18:10:00 EDT, Route to Pharmacy Electronically, [facility] #[id number], Partial fill upon patient request if the prescription is for a schedul... Start Date: 09/08/23 Stop Date: 11/03/23 Status: Ordered Trelegy Ellipta 200 mcg-62.5 mcg-25 mcg/inh inhalation powder 1 puffs, Inhalation, Daily, at the same time every day, # 3 each, 3 Refills, Maintenance, 07/23/23 16:56:00 EDT, Powder, [facility] #[id number], Partial fill upon patient request if the prescription is for a schedule II opioid drug., 1 puffs Inha... Start Date: 07/23/23 Stop Date: 07/17/24 Status: Ordered Ventolin HFA 108 mcg/inh inhalation aerosol with adapter 2 puffs, Inhalation, 4 times a day, PRN for wheezing, # 1 each, 3 Refills, Maintenance, 05/28/23 12:34:00 EST, Aerosol, [facility] #[id number], Partial fill upon patient request if the prescription is for a schedule II opioid drug., 170, cm, 04/04... Start Date: 05/28/23 Status: Ordered Voltaren Arthritis Pain 1% topical gel = 4 Gm, Topically, 4 times a day, # 480 Gm, 4 Refills, Maintenance, 07/24/23 14:31:00 EDT, [facility] #[id number], Partial fill upon patient request if the [...] Exam Date Time Procedure Performing Provider Status 10/05/23 9:37 PM Hand Min 3 Views Left Mijares , Rupeshuthao T; Auth (Verified) Notes: (Hand Min 3 Views Left) Reason For Exam: Pain RESULT: Hand Min 3 Views Left Forearm 2 Views Left, Wrist Comp Min 3 Views Left, Hand Min 3 Views Left Hx of Present Illness: fell landing on left arm. reports 10 10 left hand, wrist and arm pain. limited rom secondary to pain. +radial pulses. no obvious deformity,; Reason: Pain; Clinical Question(s):Fracture COMPARISON: None. FINDINGS: Likely acute fracture through the radial styloid with extension to the articular surface. Moderate arthropathy at the first carpometacarpal joint. Normal soft tissues. IMPRESSION: Intra-articular distal radial fracture. WSN: [id number] Ordering Physician: Diomedes Kelley Dictated By: Mart Saavedra MD Dictated Date/Time: 10/05/23 9:41 pm Reviewed By: Mart Saavedra MD Signed By: Mart Saavedra MD Signed Date/Time: 10/05/23 9:41 pm Transcribed By: KHADRA Transcribed Date/Time: 10/05/23 9:38 pm * Exam Date Time Procedure Performing Provider Status 10/05/23 9:37 PM Wrist Comp Min 3 Views Left Mijares , Thut willi T; Auth (Verified) Notes: (Wrist Comp Min 3 Views Left) Reason For Exam: Pain RESULT: Wrist Comp Min 3 Views Left Forearm 2 Views Left, Wrist Comp Min 3 Views Left, Hand Min 3 Views Left Hx of Present Illness: fell landing on left arm. reports 10 10 left hand, wrist and arm pain. limited rom secondary to pain. +radial pulses. no obvious deformity,; Reason: Pain; Clinical Question(s):Fracture COMPARISON: None. FINDINGS: Likely acute fracture through the radial styloid with extension to the articular surface. Moderate arthropathy at the first carpometacarpal joint. Normal soft tissues. IMPRESSION: Intra-articular distal radial fracture. WSN: [id number] Ordering Physician: Diomedes Kelley Dictated By: Mart Saavedra MD Dictated Date/Time: 10/05/23 9:41 pm Reviewed By: Mart Saavedra MD Signed By: Mart Saavedra MD Signed Date/Time: 10/05/23 9:41 pm Transcribed By: KHADRA Transcribed Date/Time: 10/05/23 9:38 pm * Exam Date Time Procedure Performing Provider Status 10/05/23 9:37 PM Forearm 2 Views Left Mijares , Thuthao T; Auth (Verified) Notes: (Forearm 2 Views Left) Reason For Exam: Pain RESULT: Forearm 2 Views Left Forearm 2 Views Left, Wrist Comp Min 3 Views Left, Hand Min 3 Views Left Hx of Present Illness: fell landing on left arm. reports 10 10 left hand, wrist and arm pain. limited rom secondary to pain. +radial pulses. no obvious deformity,; Reason: Pain; Clinical Question(s):Fracture COMPARISON: None. FINDINGS: Likely acute fracture through the radial styloid with extension to the articular surface. Moderate arthropathy at the first carpometacarpal joint. Normal soft tissues. IMPRESSION: Intra-articular distal radial fracture. WSN: [id number] Ordering Physician: Diomedes Kelley Dictated By: Mart Saavedra MD Dictated Date/Time: 10/05/23 9:41 pm Reviewed By: Mart Saavedra MD Signed By: Mart Saavedra MD Signed Date/Time: 10/05/23 9:41 pm Transcribed By: KHADRA Transcribed Date/Time: 10/05/23 9:38 pm Vital Signs Most recent to oldest [Reference Range]: 1 2 Height 170 cm (10/05/23 9:15 PM) Weight 108 kg (10/05/23 9:15 PM) Oxygen Saturation [94-100 %] 91 % *L* (10/05/23 9:15 PM) Pulse Rate [55-90 bpm] 98 bpm *H* (10/05/23 9:15 PM) Blood Pressure [90-138/55-84 mm Hg] 138/ 87mm Hg (10/05/23 9:15 PM) Respiratory Rate [16-30 br/min] 16 br/mi n (10/05/23 10:42 PM) 17 br/min (10/05/23 9:15 PM) Temperature [96.8-100.4 DegF] 99.1 DegF (10/05/23 9:15 PM) Mode of Delivery (Oxygen) Room air (10/05/23 9:15 PM) Blood pressure sites Arm, right (10/05/23 9:15 PM) Temperature Route Temporal (10/05/23 9:15 PM) Dry Weight 108 kg (10/05/23 9:15 PM) Weight Obtained Via Standing scale (10/05/23 9:15 PM) Dry Weight Obtained Via Standing scale (10/05/23 9:15 PM) Social History Social History Type Response Smoking Status 10 or more cigarette s (1/2 pack or more)/day in last 30 days; Interested in cessation: No; Patient wants NRT during admission No;Never; Type: Cigarettes; Exposure to Secondhand Smoke: No; Tobacco user in household: Yes; Started at age: 8; entered on: 01/31/23 Sex Note * Stiven Marley: PERFORM Event Display: Patient Education Leaflets Authored Date: [id number] Fiberglass Splint Care ?? [id number] Fiberglass Splint Care Follow these guidelines when caring for your splint: ??? It will take up to??2??hours for your fiberglass splint to fully harden. Don???t put any pressure on it during that time or it may break. ??? To prevent swelling under the splint, do this for thefirst 2 days (48 hours): o For a splint on your??arm, keep it in a sling or raised to shoulder level when you are sitting or standing. Rest it on your chest or on a pillow at your side when you are lying down. o For a splint on your??foot, keep it propped up above the level of your heart when sitting or lying. Avoid crutch walking as much as possible during this time. ??? Keep the splint dry at all times. Bathe with your splint well out of the water. Protect it with 2 large plastic bags and tape each bag separately at the top end. If a fiberglass splint gets wet, you can dry it with a general studies program chair on the cool setting. ??? Put an ice pack on the injured area. Do this for 20 minutes every 1 to 2 hours the first day for pain relief. To make an ice pack, put ice cubes in a plastic bag that seals at the top. As the ice melts, be careful that the splint doesn???t get wet. Keep using the ice pack 3 to 4 times a day for the next 2 days. Then use it as needed to ease pain and swelling. ??? Your healthcare provider may prescribe medicines for pain or swelling. Follow your provider???s instructions for taking these medicines. If no pain medicine was prescribed, you may use acetaminophen or ibuprofen to control pain. If you have chronic liver or kidney disease, talk with your provider before using these medicines. Also talk with your provider if you???ve had a stomach ulcer, gastrointestinal bleeding, or take a blood thinner. ??? Don't stick anything inside the splint, such as a coat trackwalker. Don't apply any powders or creams. If itching continues, call your provider. ??? Look at the skin near the cast regularly. If skin becomes red or raw, call your provider. Follow-up care Follow up with your healthcare provider as advised. ?? When to get medical advice Call your healthcare provider right away??if any of these occur: ??? Bad odor from the splint or wound fluid stains the splint ??? The splint cracks or stays wet for more than 24 hours ??? Tightness or pressure under the splint gets worse ??? Fingers or toes become swollen, cold, blue, numb, or tingly ??? You can???t move your fingers or toes ??? Pain under the splint gets worse ??? The skin around the splint becomes red, irritated, or swollen ??? Fever of more than 100.4??F (38??C) or higher, or as advised ??? Chills ?? Last Reviewed Date: 2021 ?? [id number] [employer]. All rights reserved. This information is not intended as a substitute for professional medical care. Always follow your healthcare professional's instructions. ?? * Stiven Marley: PERFORM Event Display: Patient Education Leaflets Authored Date: [id number] Broken Wrist ?? [id number] Broken Wrist You have a broken bone (fracture) in your wrist. This may be a small crack or chip in the bone. Or it may be a major break, with the broken parts pushed out of position. Wrist fractures are often treated with a splint or cast. They take about 4 to 6 weeks to heal. Severe injuries may need surgery. This would be done by an orthopedic surgeon. This is a surgeon who specializes in treating bone, muscle, joint, and tendon problems. Home care Follow these guidelines when caring for yourself at home: ??? Keep your arm elevated to reduce painand swelling. When sitting or lying down, keep your arm above the level of your heart. You can do this by placing your arm on a pillow that rests on your chest or on a pillow at your side. This is most important during the first 2 days (48 hours) after the injury. ??? Put an ice pack on the injuredarea. Do this for 20 minutes every 1 to 2 hours the first day for pain relief. To make an ice pack,put ice cubes in a plastic bag that seals at the top. Wrap the bag in a thin towel. As the ice melts, be careful that the cast or splint doesn???t get wet. Keep using the ice pack 3 to 4 times a day for the next 2 days. Then use the ice pack as needed to ease pain and swelling. ??? Keep the cast orsplint completely dry at all times. Bathe with your cast or splint out of the water. Protect it with a large plastic bag, rubber-banded or taped at the top end. If a fiberglass cast or splint gets wet, you can dry it with a general studies program chair on a cool setting. ??? You may use acetaminophen or ibuprofen tocontrol pain unless another pain medicine was prescribed. If you have chronic liver or kidney disease, talk with your healthcare provider before using these medicines. Also talk with your provider ifyou???ve had a stomach ulcer or digestive tract bleeding. ??? Don???t put creams, lotions, or objects under the cast. If itching won't go away, call your provider. ?? Follow-up care Follow up with your healthcare provider as advised. This is to make sure the bone is healing the way it should. If a splint was put on, it may be changed to a cast during your follow-up visit.??A cast may need to be changed at 2 to 3 weeks, as the swelling goes down. If X-rays were taken, a radiologist may look at them. You'll be told of any new findings that may affect your care. ?? When to get medical care Call your healthcare provider right away if any of these occur: ??? The plaster cast or splint becomes wet or soft ??? The cast or splint cracks ??? Bad odor from the cast or wound fluid stains the cast ??? Itching under the cast or splint continues or gets worse ??? The fiberglass cast or splint stays wet for more than 24 hours ??? Tightness or pain under the cast or splint gets worse ??? Fingers become swollen, cold, blue, numb, or tingly ??? You can???t move your fingers ??? Skin around castbecomes red, swollen, or irritated ?? Last Reviewed Date: 2021 ?? [id number] [employer]. All rights reserved. This information is not intended as a substitute for professional medical care. Always follow your healthcare professional's instructions. ?? Patient Care team information Care Team Personnel Name: Roxi BROWN, Compa Hall Position: [facility] PCO Associate Professional Member Role: PCP Address: Address: [address] [facility] [place] [address]- Name: Blaire Iglesias [place] Position: [facility] Staff Member Role: Primary Care Nurse Name: Rhiannon Li [place] Position: [facility] Staff Member Role: Primary Care Nurse Name: Viral Jolly MD Position: [facility] Physician - Behavioral Health Member Role: Lifetime Consulting Physician Address: Address: [address] [place] [address] [place] [address]- Care Team Related Persons Name: MAIN MOSER Address: home [address] [place] [address] Name: JORGE GARCIA Address: home [address] [place] [address] Name: LOREE SIFUENTES
--- OUTSIDE RECORDS SUMMARY | 2024-03-03 23:41 | XMS_ITS | Continuity of Care Document ---
Author Organization [facility] Address [address] [place] [address]- Care Team Providers Care Manager Pulmonary Name Role Phone Roxi CLOTH SHEARING SUPERVISOR, Compa Hall Primary Care Physician Encounter [facility] Date(s): 04/29/23 - 05/29/23 [facility] [address] [place] [id number] Allergies, Adverse Reactions, Alerts No Known [...] 11 Refills, Maintenance, 03/25/23 12:53:00 EST, Solution, [facility] #[id number], 3 mL Inhalation 4 times a da... Start Date: 03/25/23 Status: Ordered Breo Ellipta 100 mcg-25 mcg/inh inhalation powder 1 puffs, Inhalation, Daily, [employer] AFTERWARDS., # 1 each, 3 Refills, 11/21/22 10:33:00 EDT, [facility] #[id number], 1 puffs Inhalation Daily,Instr:RINSE MOUTH AFTERWARDS., 170, cm, 11/19/2313:19:00 EDT, Height, 94.4, kg, 11/08/22 14:35:00 E... Start Date: 11/21/22 Status: Ordered cloNIDine 0.1 mg oral tablet 0.05 mg, 0.5, tablet, By Mouth, 4 times a day, PRN, stay hydrated, # 60 tablet, Refills 3, Tot. Refills 3, Maintenance, anxiety, panic, withdrawal symptoms, 03/25/23 12:52:00 EST, Route to Pharmacy Electronically, [facility] #[id number], Partial... Start Date: 03/25/23 Status: Ordered duloxetine 30 mg oral enteric coated capsule 1 capsule = 30 mg, By Mouth, 2 times a day, do not crush or chew, # 180 capsule, 3 Refills, Maintenance, 12/20/22 17:50:00 EDT, [facility] #[id number], 170, cm, 12/06/22 0:43:00 EDT, Height, 94.4, kg, 11/08/22 14:35:00 EDT, Dry Weight Start Date: 12/20/22 Status: Ordered gabapentin 300 mg oral capsule 300 mg, 1, capsule, By Mouth, 3 times a day, # 270 capsule, Refills 1, Tot. Refills 1, Maintenance,02/12/23 10:36:00 EDT, Route to Pharmacy Electronically, [facility] #[id number], Partial fill upon patient request, 170, cm, 01/31/23 10:06:00 EDT... Start Date: 02/12/23 Status: Ordered hydroxychloroquine 200 mg oral tablet 1, tablet, By Mouth, 2 times a day, # 60 tablet, Refills 5, Tot. Refills 5, 04/15/23 13:55:00 EST, Route to Pharmacy Electronically, [facility] #[id number], 170, cm, 01/31/23 10:06:00 EDT, Height, 94.4, kg, 11/08/22 14:35:00 EDT, Dry Weight Start Date: 04/15/23 Status: Ordered hydrOXYzine hydrochloride 25 mg oral tablet 1 tablet = 25 mg, By Mouth, Daily, PRN anxiety, for 30 days, # 30 tablet, 3 Refills, Acute 07/23/2411:53:00 EDT, 03/25/23 12:53:00 EST, Tablet, [facility] #[id number], Partial fill upon patientrequest if the prescription is for a schedule II op... Start Date: 03/25/23 Stop Date: 07/23/23 Status: Ordered risperiDONE 1 mg oral tablet 1 mg, 1, tablet, By Mouth, Daily, # 90 tablet, Refills 1, Tot. Refills 1, Maintenance, 02/12/23 10:37:00 EDT, Route to Pharmacy Electronically, [facility] #[id number], 170, cm, 01/31/23 10:06:00EDT, Height, 94.4, kg, 11/08/22 14:35:00 EDT, Dry W... Start Date: 02/12/23 Stop Date: 08/11/23 Status: Ordered Suboxone 8 mg-2 mg Sublingual Film 1 film, Sublingual, 3 times a day, dissolve under the tongue, # 90 film, 1 Refills, Maintenance, 05/14/23 11:49:00 EST, [facility] #[id number], Partial fill upon patient request if the prescription is for a schedule II opioid drug. ALVINA [id number];... Start Date: 05/14/23 Stop Date: 07/13/23 Status: Ordered tiZANidine 2 mg oral tablet 2 mg, 1, tablet, By Mouth, 3 times a day, # 21 tablet, Refills 0, Tot. Refills 0, Maintenance, 04/22/23 9:05:00 EST, Route to Pharmacy Electronically, [facility] #[id number], Partial fill upon patient request if the prescription is for a schedule... Start Date: 04/22/23 Stop Date: 04/29/23 Status: Ordered Ventolin HFA 108 mcg/inh inhalation aerosol with adapter 2 puffs, Inhalation, 4 times a day, PRN for wheezing, # 1 each, 3 Refills, Maintenance, 05/28/23 12:34:00 EST, Aerosol, [facility] #[id number], Partial fill upon patient request if the prescription is for a schedule II opioid drug., 170, cm, 04/04... Start Date: 05/28/23 Status: Ordered Voltaren Arthritis Pain 1% topical gel = 4 Gm, Topically, 4 times a day, # 480 Gm, 4 Refills, Maintenance, 04/10/23 11:37:00 EST, [facility] #[id number], Partial fill upon patient request if the prescription is for a schedule II opioid drug., 4 Gm Topically 4 times a day, 170, cm, ... Start Date: 04/10/23 Status: Ordered [facility] PAIN RELIEVING LIDOCAINE PATCH 4% [facility] PAIN RELIEVING LIDOCAINE PATCH 4%, See Instructions, [...] Personnel Name: Roxi BROWN, Compa Hall Position: [facility] PCO Associate Professional Member Role: PCP Address: Address: [address] [facility] [place] [address]- [place] Name: Blaire Iglesias [place] Position: [facility] RN Member Role: Primary Care Nurse Name: Rhiannon Gibson Position: [facility] RN Member Role: Primary Care Nurse Name: Viral Jolly MD Position: [facility] Physician - Behavioral Health Member Role: [employer] Consulting Physician Address: Address: [address] [place] [address]- Care Team Related Persons Name: MAIN MOSER Address: home [address] [place] [address] Name: JORGE GARCIA Address: [address] [place] [address] Name: LOREE SIFUENTES
--- OUTSIDE RECORDS SUMMARY | 2024-03-03 23:41 | XMS_ITS | Continuity of Care Document ---
Author Organization [facility] Address [address] [place] [address]- Care Team Providers Care Phlebotomist Supervisor/Instructor Name Role Phone Angela BROWN, Robyn Martinez Primary Care Physician Encounter [facility] Date(s): 03/07/20 - 05/18/20 [facility] [address] [place] [address]- Attending Physician: [place], Milton Jones Allergies, [...] 11 Refills, Maintenance, 05/31/19 17:40:00 EST, Solution, [facility]/pharmacy #[id number], 3 mL Inhalation 4 times a day,PRN:Whe... Start Date: 05/31/19 Status: Ordered Suboxone 8 mg-2 mg sublingual film 2.5 FILMS, Sublingual, Daily, [id number], # 75 film, 1 Refills, Maintenance, 04/26/20 16:38:00 EST, [facility] #[id number], 2.5 FILMS Sublingual Daily,Instr:[id number], 163, cm, 04/26/20 14:26:00 EST, Height, 105, [...]
--- OUTSIDE RECORDS SUMMARY | 2024-03-03 23:41 | XMS_ITS | Continuity of Care Document ---
Author Organization [facility] Address [address] [place] [address]- Care Team Providers Care Cotton Grader Name Role Phone Gen BROWN, Claribel Primary Care Physician [facility]counter [facility] Date(s): 11/07/20 - [facility]07/21 [facility] [address] [place], [place] [address] Attending Physician: Milton Mcnulty MD Allergies, Adverse Reactions, Alerts Substance Reaction [...] OR WHEEZING, # 18 each, 6 Refills, [id number], 20, INHALE 2 PUFFS BY MOUTH EVERY [...]
--- OUTSIDE RECORDS SUMMARY | 2024-03-03 23:41 | XMS_ITS | Continuity of Care Document ---
Author Organization [facility] Address [address] [place] [address]- Care Team Providers Care Systems Manager Name Role Phone Gen BROWN, Claribel Primary Care Physician Encounter [facility] Date(s): 05/16/22 - 06/15/22 [facility] Rhe[facility] [address] [place] [address]- Allergies, Adverse Reactions, Alerts No Known Allergies [...] 11 Refills, Maintenance, 08/22/20 13:04:00 EDT, Solution, [facility]/pharmacy #[id number], 3 mL Inhalation 4 times a day,PRN:Whe... Start Date: 08/22/20 Status: Ordered Breo Ellipta 100 mcg-25 mcg/inh inhalation powder 1 puffs, Inhalation, Daily, [employer]., # 60 each, 1 Refills, [id number], 30, INHALE 1 PUFF BY MOUTH EVERY DAY. [employer]., 170, cm, 03/07/21 11:09:00 EDT, Height, 107.3, kg, 06/22/20 13:29:00 EST, Dry Weight Start Date: 11/12/21 Status: Ordered diclofenac 1% topical gel = 2 Gm, Topically, 2 times a day, # 100 Gm, 2 Refills, 05/16/22 16:23:00 EST, [facility] #[id number], 25, 2 Gm Topically 2 times a day, 175, cm, 05/01/22 15:32:00 EST, Height, 75, kg, 05/01/22 15:32:00 EST, Dry Weight Start Date: 05/16/22 Status: Ordered duloxetine 30 mg oral enteric coated capsule 1 capsule = 30 mg, By Mouth, 2 times a day, do not crush or chew, # 180 capsule, 3 Refills, Maintenance, 02/19/22 14:28:00 EDT, [facility] #[id number], 170, cm, 03/07/21 11:09:00 EDT, Height, 107.3, kg, 06/22/20 13:29:00 EST, Dry Weight Start Date: 02/19/22 Status: Ordered famotidine 20 mg oral tablet 20 mg, 1, tablet, By Mouth, Daily, OV 5-6-20, # 30 tablet, Refills 5, Tot. Refills 5, Maintenance, 08/21/20 12:25:00 EDT, Route to Pharmacy Electronically, [facility]/pharmacy #[id number], 170, cm, 08/16/20 15:32:00 EDT, Height, 107.3, kg, 06/22/20 13:29:00 EST, D... Start Date: 08/21/20 Status: Ordered gabapentin 300 mg oral capsule 300 mg, 1, capsule, By Mouth, 3 times a day, # 270 capsule, Refills 1, Tot. Refills 1, Maintenance,08/21/21 14:14:00 EDT, Route to Pharmacy Electronically, [facility] #[id number], Partial fill upon patient request, 170, cm, 03/07/21 11:09:00 EDT... Start Date: 08/21/21 Status: Ordered gabapentin 300 mg oral capsule 300 mg, 1, capsule, By Mouth, 3 times a day, # 270 capsule, Refills 3, Tot. Refills 3, Maintenance,02/19/22 14:28:00 EDT, Route to Pharmacy Electronically, [facility] #[id number], Partial fill upon patient request, 170, cm, 03/07/21 11:09:00 EDT... Start Date: 02/19/22 Status: Ordered hydroxychloroquine 200 mg oral tablet 1, tablet, By Mouth, 2 times a day, # 60 tablet, Refills 5, Tot. Refills 5, 05/16/22 16:23:00 EST, Route to Pharmacy Electronically, [facility] #[id number], 175, cm, 05/01/22 15:32:00 EST, Height, 75, [...] 18 Gm, 5 Refills, 03/20/22 16:08:00 EST, [facility] #[id number], 2 puffs Inhalation Every 4 to 6 hours,PRN: NEEDED FOR SHORTNESS OF BREATH OR WHEEZING... Start Date: 03/20/22 Status: Ordered risperiDONE 1 mg oral tablet 1 mg, 1, tablet, By Mouth, Daily, # 90 tablet, Refills 3, Tot. Refills 3, Maintenance, 02/19/22 14:27:00 EDT, Route to Pharmacy Electronically, [facility] #[id number], 170, cm, 03/07/21 11:09:00EDT, Height, 107.3, kg, 06/22/20 13:29:00 EST, Dry... Start Date: 02/19/22 Stop Date: 02/14/23 Status: Ordered Suboxone 8 mg-2 mg Sublingual Film 1 film, Sublingual, 3 times a day, dissolve under the tongue, # 21 film, 0 Refills, Maintenance, 04/05/22 8:36:00 EST, [facility] #[id number], Partial fill upon patient request if the prescription is for a schedule II opioid drug. ALVINA [id number],... Start Date: 04/05/22 Stop Date: 04/12/22 Status: Ordered Suboxone 8 mg-2 mg Sublingual Film 1 film, Sublingual, 3 times a day, dissolve under the tongue, # 90 film, 1 Refills, Maintenance, 02/08/22 13:04:00 EDT, [facility] #[id number], Partial fill upon patient request if the prescription is for a schedule II opioid drug. ALVINA [id number],... Start Date: 02/08/22 Stop Date: 04/09/22 Status: Ordered Suboxone 8 mg-2 mg Sublingual Film 1 film, Sublingual, 3 times a day, dissolve under the tongue, # 90 film, 1 Refills, Maintenance, 05/10/22 14[facility]12[id number], Partial fill upon patient request if the prescription is for a schedule II opioid drug. ALVINA [id number],... Start Date: 05/10/22 Stop Date: 07/09/22 Status: Ordered Suboxone 8 mg-2 mg Sublingual Film 1 film, Sublingual, 3 times a day, dissolve under the tongue, # 90 film, 1 Refills, Maintenance, 12/10/21 14:40:00 EDT, [facility] #[id number], Partial fill upon patient request if the prescription is for a schedule II opioid drug. ALVINA [id number],... Start Date: 12/10/21 Stop Date: 02/08/22 Status: Ordered Suboxone 8 mg-2 mg Sublingual Film 1 film, Sublingual, 3 times a day, dissolve under the tongue, # 21 film, 0 Refills, Maintenance, 04/12/22 14:58:00 EST, [facility] #[id number], Partial fill upon patient request if the prescription is for a schedule II opioid drug. ALVINA [id number],... Start Date: 04/12/22 Stop Date: 04/19/22 Status: Ordered Suboxone 8 mg-2 mg sublingual film 3 film, Sublingual, Daily, [id number], # 90 film, 1 Refills, Maintenance, 10/21/21 9:55:00 EDT, [facility] #[id number], 3 film Sublingual Daily,x30 days,Instr:[id number], 170, cm, 03/07/21 11:09:00 EDT, Height, 107.3, kg, 06/22/20 13:29:00 EST, Dry... Start Date: 10/21/21 Stop Date: 12/20/21 Status: Ordered traZODone 50 mg oral tablet 50 mg, 1, tablet, By Mouth, Daily at bedtime, PRN, as needed, # 90 tablet, Refills 3, Tot. Refills 3, Maintenance, Sleep, 02/19/22 14:27:00 EDT, Route to Pharmacy Electronically, [facility]#[id number], 170, cm, 03/07/21 11:09:00 EDT, Height, 107... [...] Care Team Personnel Name: Blaire Crandall Position: [facility] RN Member Role: Primary Care Nurse Name: Rhiannon Gibson Position: [facility] RN Member Role: Primary Care Nurse Name: Claribel Blevins NP Position: [facility] PCO Associate Professional Member Role: PCP Address: Address: [address] [place] [id number]- [place] Name: Viral Jolly MD Position: [facility] Psychiatry MD Member Role: Lif[employer] Consulting Physician Address: Address: [address] [place] [id number]- Care Team Related Persons Name: MAIN MOSER Address: home [address] [place] [address] Name: JORGE GARCIA Address: home [address] [place] [address]
--- OUTSIDE RECORDS SUMMARY | 2024-03-03 23:41 | XMS_ITS | Continuity of Care Document ---
Author Organization [facility] Address [address] [place] [id number]- Care Team Providers Care Assembly Line Inspector Name Role Phone Claribel Blevins NP Primary Care Physician [place] [facility] [place]/18[place] - 08/17/21 [facility] [address] [place] [id number] Attending Physician: Maddie Jones Admitting Physician: AdmMaddie [...] OR WHEEZING, # 18 each, 6 Refills, [id number], 20, INHALE 2 PUFFS BY MOUTH EVERY [...]
--- OUTSIDE RECORDS SUMMARY | 2024-03-03 23:41 | XMS_ITS | Continuity of Care Document ---
Author Organization [facility] Address [address] [place] [address]- Care Team Providers Care Supervisor [employer] Name Role Phone Fine STEPHANIE, Compa Hall Primary Care Physician Encounter [facility] Date(s): 02/26/24 - 02/27/24 [facility] [address] [place] [address]- Encounter Diagnosis Constipation(Final) - 02/27/24 Alcohol intoxication in active alcoholic(Final) - 02/27/24 Discharge Disposition: A-D/C Home Attending Physician: Verito Salazar DO Admitting Physician: Verito Salazar DO Referring Physician: Not on Staff, Referring MD [...] mL, 11 Refills, Maintenance, 03/25/23 12:53:00 EST, [id number], 3 mL Inhalation 4 times a da... Start Date: 03/25/23 Status: Ordered Breo Ellipta 100 mcg-25 mcg/inh inhalation powder 1 puffs, Inhalation, Daily, [employer]., # 1 each, 3 Refills, 11/21/22 10:33:[id number], 1 puffs Inhalation Daily,Instr:[employer]., 170, cm, 11/19/2313:19:00 EDT, Height, 94.4, kg, 11/08/22 14:35:00 E... Start Date: 11/21/22 Status: Ordered calcium (as citrate)-vitamin D 315 mg-250 intl units oral tablet 2 tablet, By Mouth, 2 times a day, # 120 tablet, 11 Refills, Maintenance, 10/27/23 11:47:00 EDT, Tablet, [facility] #[id number], Partial fill upon patient request if the [...] 02/09/24 16:21:00 EDT, Route to Pharmacy Electronically, [facility] #[id number], Partial... Start Date: 02/09/24 Stop Date: 08/07/24 Status: Ordered Colace sodium 100 mg oral capsule 100 mg, 1, capsule, By Mouth, 2 times a day, PRN, # 60 capsule, Refills 0, Tot. Refills 0, Maintenance, for constipation, 02/27/24 0:55:00 EDT, Route to Pharmacy Electronically, [facility] #[id number], Partial fill upon patient request if the pre... Start Date: 02/27/24 Stop Date: 03/28/24 Status: Ordered duloxetine 30 mg oral enteric coated capsule 1 capsule = 30 mg, By Mouth, 2 times a day, do not crush or chew, # 180 capsule, 3 Refills, Maintenance, 12/15/23 12:15:00 EDT, [facility] #[id number], 170, cm, 11/26/23 7:18:00 EDT, Height, 100, kg, 10/09/23 2:02:00 EDT, Dry Weight Start Date: 12/15/23 Status: Ordered duloxetine 30 mg oral enteric coated capsule 1 capsule = 30 mg, By Mouth, 2 times a day, do not crush or chew, # 180 capsule, 3 Refills, Maintenance, 12/20/22 17:50:00 EDT, [facility] #[id number], 170, cm, 12/06/22 0:43:00 EDT, Height, 94.4, kg, 11/08/22 14:35:00 EDT, Dry Weight Start Date: 12/20/22 Status: Ordered fluconazole 150 mg oral tablet 1 tablet = 150 mg, By Mouth, Once, For treatment of Yeast infection, repeat dose if still having symptoms in 72 hours, # 2 tablet, 0 Refills, Soft Stop, 12/19/23 10:58:00 EDT, Tablet, [facility] #[id number], Partial fill upon patient request if t... Start Date: 12/19/23 Status: Ordered gabapentin 300 mg oral capsule 300 mg, 1, capsule, By Mouth, 3 times a day, # 270 capsule, Refills 1, Tot. Refills 1, Maintenance,12/15/23 12:15:00 EDT, Route to Pharmacy Electronically, [facility] #[id number], Partial fill upon patient request, 170, cm, 11/26/23 7:18:00 EDT,... Start Date: 12/15/23 Status: Ordered gabapentin 300 mg oral capsule 300 mg, 1, capsule, By Mouth, 3 times a day, # 270 capsule, Refills 1, Tot. Refills 1, Maintenance,08/11/23 9:29:00 EDT, Route to Pharmacy Electronically, [facility] #[id number], Partial fill upon patient request, 170, cm, 07/23/23 16:32:00 EDT,... Start Date: 08/11/23 Status: Ordered hydroxychloroquine 200 mg oral tablet 1, tablet, By Mouth, 2 times a day, # 60 tablet, Refills 5, Tot. Refills 5, 12/25/23 9:59:00 EDT, Route to Pharmacy Electronically, [facility] #[id number], 170, cm, 12/19/23 10:38:00 EDT, Height, 100, kg, 10/09/23 2:02:00 EDT, Dry Weight Start Date: 12/25/23 Status: Ordered hydrOXYzine hydrochloride 25 mg oral tablet See Instructions, TAKE 1 TABLET BY MOUTH TWICE DAILY NEEDED FOR ANXIETY, # 60 tablet, 5 Refills,Maintenance, 02/09/24 16:21:00 EDT, [facility] #[id number], 170, cm, 02/02/24 10:19:00 EDT, Height, 100, kg, 10/09/23 2:02:00 EDT, Dry Weight Start Date: 02/09/24 Status: Ordered MiraLax oral powder for reconstitution = 17 Gm, By Mouth, Daily, for 30 days, dissolve in 4 to 8 oz of beverage, # 510 Gm, 0 Refills, Acute 03/28/24 0:55:00 EST, 02/27/24 0:55:00 EDT, REC Powder, [facility] #[id number], Partial fill upon patient request if the prescription is for a sc... Start Date: 02/27/24 Stop Date: 03/28/24 Status: Ordered NEBULIZER MACHINE AND TUBING NEBULIZER MACHINE AND TUBING, See Instructions, PRN Wheezing/Shortness of Breath, # 1 each, Refills0, Tot. Refills 0, Maintenance, USE NEEDED FOR WHEEZING DX:, 06/17/23 15:49:00 EST, Supply Start Date: 06/17/23 Status: Ordered NuLYTELY Lemon [place] oral powder for reconstitution 240 mL, By Mouth, Every 10 minutes, # 1 each, 0 Refills, Maintenance, 12/03/23 9:52:00 EDT, REC Powder, [facility] #[id number], Partial fill upon patient request if the prescription is for a schedule II opioid drug., 170, cm, 11/26/23 7:18:00 EDT... Start Date: 12/03/23 Status: Ordered PHENobarbital 30 mg oral tablet 1 tablet = 30 mg, By Mouth, 2 times a day, # 60 tablet, 1 Refills, Maintenance, 12/15/23 12:14:00 EDT, Tablet, [facility] #[id number], IF NOT COVERED, please use goodrx coupon and allow pt to pay OOP; $9.09; [facility] [id number]; [facility]; Group [facility]; Membe... Start Date: 12/15/23 Status: Ordered PHENobarbital 30 mg oral tablet 1 tablet = 30 mg, By Mouth, 2 times a day, # 60 tablet, 1 Refills, Maintenance, 02/09/24 16:21:00 EDT, Tablet, [facility] #[id number], IF NOT COVERED, please use goodrx coupon and allow pt to pay OOP; $9.09; [facility] [id number]; [facility]; Group [id number]; Membe... Start Date: 02/09/24 Status: Ordered risperiDONE 1 mg oral tablet 1 mg, 1, tablet, By Mouth, Daily, # 90 tablet, Refills 1, Tot. Refills 1, Maintenance, 02/09/24 16:21:00 EDT, Route to Pharmacy Electronically, [facility] #[id number], 170, cm, 02/02/24 10:19:00EDT, Height, 100, kg, 10/09/23 2:02:00 EDT, Dry Weight Start Date: 02/09/24 Stop Date: 08/07/24 Status: Ordered Senna 8.6 mg oral tablet 8.6 mg, 1, tablet, By Mouth, Daily at bedtime, for 30 days, # 30 tablet, Refills 0, Tot. Refills 0,Acute, 03/28/24 0:55:00 EST, 02/27/24 0:55:00 EDT, Route to Pharmacy Electronically, [facility] #[id number], Partial fill upon patient request if... Start Date: 02/27/24 Stop Date: 03/28/24 Status: Ordered tiZANidine 2 mg oral tablet 2 mg, 1, tablet, By Mouth, 3 times a day, # 84 tablet, Refills 1, Tot. Refills 1, Maintenance, 12/26/23 9:21:00 EDT, Route to Pharmacy Electronically, [facility] #[id number], Partial fill upon patient request if the prescription is for a schedule... Start Date: 12/26/23 Stop Date: 02/20/24 Status: Ordered Trelegy Ellipta 200 mcg-62.5 mcg-25 mcg/inh inhalation powder 1 puffs, Inhalation, Daily, at the same time every day, # 3 each, 3 Refills, Maintenance, 07/23/23 16:56:00 EDT, Powder, [facility] #[id number], Partial fill upon patient request if the prescription is for a schedule II opioid drug., 1 puffs Inha... Start Date: 07/23/23 Stop Date: 07/17/24 Status: Ordered Ultram 50 mg oral tablet 1 tablet = 50 mg, By Mouth, Every 12 hours, PRN for pain, # 20 tablet, 0 Refills, Maintenance, 10/14/23 9:32:00 EDT, Tablet, [facility] #[id number], Partial fill upon patient request if the prescription is for a schedule II opioid drug., 170, cm,... Start Date: 10/14/23 Status: Ordered Ventolin HFA 108 mcg/inh inhalation aerosol with adapter 2 puffs, Inhalation, 4 times a day, PRN for wheezing, # 3 each, 1 Refills, Maintenance, 02/10/24 10:15:00 EDT, Aerosol, [facility] #[id number], Partial fill upon patient request if the prescription is for a schedule II opioid drug., 170, cm, 01/05... Start Date: 02/10/24 Status: Ordered Voltaren Arthritis Pain 1% topical gel = 4 Gm, Topically, 4 times a day, # 480 Gm, 4 Refills, Maintenance, 07/24/23 14:31:00 EDT, [facility] #[id number], Partial fill upon patient request if the [...] Exam Date Time Procedure Performing Provider Status 02/26/24 8:[address] Abd/Pelvis W/ IV Contrast Only Joaquim Nayak; Auth (Verified) Notes: (CT Abd/Pelvis W/ IV Contrast Only) Reason For Exam: Pain RESULT: CT Abd/Pelvis W/ IV Contrast Only CT Abd/Pelvis W/ IV Contrast Only Hx of Present Illness: NO BM x 3 weeks. Took colon prep,10 laxatives and prune juice w3oith no affect. Daily driker smoker. Last drink an hour before arrival; Reason: Pain; Clinical Question(s): Obstruction TECHNIQUE: Spiral CT through the abdomen and pelvis with IV contrast formatted in 3 planes. 100 cc of Isovue 300 was administered intravenously. This study was performed without oral contrast. Weight-based protocol using automatic tube modulation was used to optimize exposure parameters. CTDIvol Body: 25.43 mGy, DLP Body: 1300 mGy*cm. COMPARISON: 04/20/2023 CT abdomen and pelvis. FINDINGS: Interline Clerk View Findings, Lines and Tubes: None. Visualized Chest: Lung bases are clear. No pleural effusion. The heart is normal in size. No pericardial effusion. Diaphragm: Normal. Liver: Enlarged, fatty liver. Gallbladder: No CT evidence of gallbladder pathology. Bile ducts: No biliary ductal dilation. Spleen: Normal. Pancreas: Normal. Adrenal glands: Normal. Kidneys and ureters: No hydronephrosis, stones, or suspicious masses. Small hypodensities that are too small to characterize are noted, requiring no dedicated follow up. Bladder: Normal. Reproductive organs: Prior hysterectomy. No adnexal masses. Stomach, small bowel, and large bowel: The stomach is normal. The small bowel is normal in caliber,with no evidence of bowel obstruction. The rectum is normal. There is mild diverticulosis predominantly affecting the sigmoid colon, without findings of an acute diverticulitis. Appendix: Normal. Peritoneum and retroperitoneum: No ascites or pneumoperitoneum. No omental or mesenteric lesions. Lymph nodes: No enlarged lymph nodes. Blood vessels: Mild vascular calcifications but no aneurysm. No evidence of venous thrombosis. Abdominal and pelvic wall: Small fat-containing umbilical hernia. Bones: Mild degenerative changes in the spine. Mild levoscoliosis of the lumbar spine. IMPRESSION: 1. No acute findings in the abdomen or pelvis. No significant stool within the colon. 2. Enlarged, fatty liver. 3. Scattered colonic diverticula without findings of acute diverticulitis. Preliminary findings were reported by virtual radiology. No significant discrepancy. WSN: [id number] Ordering Physician: Verito Salazar Dictated By: Terell Jerry MD Dictated Date/Time: 02/27/24 7:55 am Reviewed By: Terell Jerry MD Signed By: Terell Jerry MD Signed Date/Time: 02/27/24 7:55 am Transcribed By: KHADRA Transcribed Date/Time: 02/27/24 7:49 am Vital Signs Most recent to oldest [Reference Range]: 1 2 3 Height 170 cm (02/27/24 6:07 AM) 170 cm (02/26/24 9:24 PM) 170 cm (02/26/24 6:57 PM) Weight 108.2 kg (02/27/24 6:07 AM) 108.2 kg (02/26/24 9:24 PM) 108.2 kg (02/26/24 6:57 PM) Oxygen Saturation [94-100 %] 97 % (02/27/24 6:07 AM) 96 % (02/27/24 5:00 AM) 97 % (02/27/24 3:00 AM) Pulse Rate [55-90 bpm] 98 bpm *H* (02/27/24 6:07 AM) 89 bpm (02/27/24 5:00 AM) 89 bpm (02/27/24 3:00 AM) Body Mass Index [18.5-24.99 kg/m2] 37.44 kg/m2 *>HHI* (02/27/24 6:07 AM) 37.44 kg/m2 *>HHI* (02/26/24 9:24 PM) Blood Pressure [90-138/55-84 mm Hg] 153/81mm Hg *H* (02/27/24 6:07 AM) 186/92mm Hg *H* (02/27/24 5:00 AM) 146/86mm Hg *H* (02/27/24 3:00 AM) Respiratory Rate [16-30 br/min] 20 br/min (02/27/24:07 AM) 18 br/min (02/27/24 5:00 AM) 20 br/min (02/27/24 3:00 AM) Temperature [96.8-100.4 DegF] 98.7 DegF (02/27/24 5:00 AM) 98.6 DegF (02/27/24 3:00 AM) 98.0 DegF (02/27/24 12:00 AM) Liters per Minute 2 L/min (02/27/24 5:00 AM) 2 L/min (02/27/24 3:00 AM) 2 L/min (02/27/24 12:00 AM) Mode of Delivery (Oxygen) Room air (02/27/24 6:07 AM) Nasal cannula (02/27/24 5:00 AM) Nasal cannula (02/27/24:00 AM) Blood pressure sites Arm, right (02/27/24:07 AM) Arm, right (02/27/24 5:00 AM) Arm, right (02/27/24 3:00 AM) Temperature Route Oral (02/27/24 3:00 AM) Oral (02/27/24 12:00 AM) Oral (02/26/24 6:52 PM) Dry Weight 108.2 kg (02/27/24 6:07 AM) 108.2 kg (02/26/24 9:24 PM) 108.2 kg (02/26/24 6:57 PM) Weight Obtained Via Standing scale (02/26/24 6:57 PM) Dry Weight Obtained Via Standing scale (02/26/24 6:57 PM) Social History Social History Type Response Smoking Status 10 or more cigarette s (1/2 pack or more)/day in last 30 days; Interested in cessation: No; Patient wants NRT during admission No;Never; Type: Cigarettes; Exposure to Secondhand Smoke: No; Tobacco user in household: Yes; Started at age: 8; entered on: 01/31/23 Sex Note * Verito Salazar DO: PERFORM, SIGN, VERIFY Event Display: Patient Education Handout Authored Date: [id number] * Verito Salazar DO: PERFORM Event Display: Patient Education Leaflets Authored Date: [id number] Alcohol Intoxication ?? [id number] Alcohol Intoxication Alcohol intoxication is very serious. [...] A.A. meetings near you at www.aa.org. ??? Al-Ann. ?? Gives support to families at www.al-anon.org . Or call 325-800-9961. ??? SMART Recovery ( Self- Management and Recovery Training). A nationwide abstinence-oriented support group for people with addictive issues. This free program is focused on motivation to change, urge control, and living a balanced life. For more information and meetings near you, go to www.Probity.org/ ??? Substance Abuse and Mental Health Services Administration ([facility]) Treatment Forestry Foreman. Free information on treatment resources in your area at https://findtreatment.gov/. Or call 829-837-5172. Call 863 Call 911 if any of these occur: [...] vomiting ?? Last Reviewed Date: 2021 ?? 6188-2448 [employer]. All rights reserved. This information is not intended as a substitute for professional medical care. Always follow your healthcare professional's instructions. ?? * Verito Salazar DO: PERFORM Event Display: Patient Education Leaflets Authored Date: [id number] Constipation (Adult) ?? [id number] Constipation (Adult) Constipation means that you have bowel movements that are less frequent than usual. Stools often become very hard and difficult to pass. Constipation is very common. At some point in life, it affects almost everyone. Since everyone's bowel habits are different, what is constipation to one person may not be to another. Your healthcare provider may do tests to diagnose constipation. It depends on what??they??find when evaluating you. Symptoms of constipation include: ??? Abdominal pain ??? Bloating ??? Vomiting ??? Painful bowel movements ??? Itching, swelling, bleeding, or pain around the anus Causes Constipation can have many causes. These include: ??? Diet low in fiber ??? Too much dairy ??? Not drinking enough liquids ??? Lack of exercise or physical activity (especially true for older adults)??? Changes in lifestyle or daily routine, including , aging, work, and travel ??? Frequent use or misuse of laxatives ??? Ignoring the urge to have a bowel movement or delaying it until later ??? Medicines, such as certain prescription pain medicines, iron supplements, antacids, certain antidepressants, and calcium supplements ??? Diseases like irritable bowel syndrome, bowel obstructions, stroke, diabetes, thyroid disease, Parkinson disease, hemorrhoids, and colon cancer ?? Complications Possible complications of constipation can include: ??? Hemorrhoids ??? Rectal bleeding from hemorrhoids or anal fissures??(skin tears) ??? Hernias ??? Chronic constipation ??? Fecal impaction, a severe form of constipation in which a large amount of hard stool is in your rectum that you can't pass??? Bowel obstruction or perforation ?? Home care All treatment should be done after talking with your healthcare provider. This is especially true if you have another medical problem, are taking prescription medicines, or are an older adult. Treatment most often involves lifestyle changes. You may also need medicines. Your healthcare provider will tell you which will work best for you. Follow the advice below to help avoid this problem in the future. ?? Lifestyle changes These lifestyle changes can help prevent constipation: ??? Diet. Eat a high- fiber diet, with fresh fruit and vegetables, and reduce dairy intake, meats, and processed foods ??? Fluids. It's importantto get enough fluids each day. Drink plenty of water when you eat more fiber. If you are on diet that limits the amount of fluid you can have, talk about this with your healthcare provider. ??? Regular exercise. Check with your healthcare provider first. ?? Medicines Take any medicines as directed. Some laxatives are safe to use only every now and then. Others can be taken on a regular basis. While laxatives don't cause bowel dependence, they are treating the symptoms. So your constipation may return if you don't make other changes. Talk with your healthcare provider or pharmacist if you have questions. Prescription pain medicines can cause constipation. If you are taking this kind of medicine, ask your healthcare provider if you should also take a stool softener. Medicines you may take to treat constipation include: ??? Fiber supplements ??? Stool softeners ???Laxatives ??? Enemas ??? Rectal suppositories ?? Follow-up care Follow up with your healthcare provider if symptoms don't get better in the next few days. You may need to have more tests or see a specialist. ?? Call 911 Call 911 if any of these occur: ??? Trouble breathing ??? Stiff, rigid abdomen that is severely painful to touch ??? Large amount of blood in the stool ??? Confusion ??? Fainting or loss of consciousness ??? Rapid heart rate ??? Chest pain ?? When to seek medical advice Call your healthcare provider right away if any of these occur: ??? Fever of 100.4??F (38??C) or higher, or as directed by your healthcare provider ??? Failure to resume normal bowel movements ??? Pain in your abdomen or back gets worse ??? Nausea or vomiting ??? Swelling in your abdomen ??? Small amount of blood in the stool ??? Black, tarry stool ??? Involuntary weight loss ??? Weakness ?? Last Reviewed Date: 2021 ?? [id number] [employer]. All rights reserved. This information is not intended as a substitute for professional medical care. Always follow your healthcare professional's instructions. ?? Patient Care team information Care Team Personnel Name: Compa Diane NP Position: [facility] PCO Associate Professional Member Role: PCP Address: Address: [address] [place] [address]- [place] Name: Blaire Iglesias [place] Position: [facility] Office Staff Member Role: Primary Care Nurse Name: Rhiannon Li [place] Position: [facility] Office Staff Member Role: Primary Care Nurse Name: Viral Jolly MD Position: [facility] Physician - Behavioral Health Member Role: Lifetime Consulting Physician Address: Address: [address] [place] [address]- Care Team Related Persons Name: MAIN MOSER Address: home [address] [place] [address] Name: JORGE GARCIA Address: home [address] [place] [id number] Name: LOREE SIFUENTES
--- OUTSIDE RECORDS SUMMARY | 2024-03-03 23:41 | XMS_ITS | Continuity of Care Document ---
Author Organization [facility] Cheryl Address [address] [place] [address]- Care Team Providers Care Ultra Sound Technician Name Role Phone Angela BROWN, Robyn Martinez Primary Care Physician Encounter [facility] Date(s): 06/10/19 - 06/20/19 [facility] [place] [address] [place] [address]- [facility] Attending Physician: Maddie Jones Admitting Physician: AdmMaddie [...]
--- OUTSIDE RECORDS SUMMARY | 2024-03-03 23:41 | XMS_ITS | Continuity of Care Document ---
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 Start Date: 03/25/23 Status: Ordered Breo Ellipta 100 mcg-25 mcg/inh inhalation powder 1 puffs, Inhalation, Daily, [employer]., # 1 each, 3 Refills, 11/21/22 10:33:00 EDT, [facility] #[id number], 1 puffs Inhalation Daily,Instr:[employer]., 170, cm, 11/19/2313:19:00 EDT, Height, 94.4, kg, 11/08/22 14:35:00 E... Start Date: 11/21/22 Status: Ordered calcium (as citrate)-vitamin D 315 mg-250 intl units oral tablet 2 tablet, By Mouth, 2 times a day, # 120 tablet, 11 Refills, Maintenance, 10/27/23 11:47:00 EDT, Tablet, [facility] #[id number], Partial fill upon patient request if the [...] 09/18/23 10:13:00 EDT, Route to Pharmacy Electronically, [facility] #[id number], Partial... Start Date: 09/18/23 Stop Date: 03/16/24 Status: Ordered duloxetine 30 mg oral enteric coated capsule 1 capsule = 30 mg, By Mouth, 2 times a day, do not crush or chew, # 180 capsule, 3 Refills, Maintenance, 12/20/22 17:50:00 EDT, [facility] #[id number], 170, cm, 12/06/22 0:43:00 EDT, Height, 94.4, kg, 11/08/22 14:35:00 EDT, Dry Weight Start Date: 12/20/22 Status: Ordered gabapentin 300 mg oral capsule 300 mg, 1, capsule, By Mouth, 3 times a day, # 270 capsule, Refills 1, Tot. Refills 1, Maintenance,08/11/23 9:29:00 EDT, Route to Pharmacy Electronically, [facility] #[id number], Partial fill upon patient request, 170, cm, 07/23/23 16:32:00 EDT,... Start Date: 08/11/23 Status: Ordered hydroxychloroquine 200 mg oral tablet 1, tablet, By Mouth, 2 times a day, # 60 tablet, Refills 5, Tot. Refills 5, 04/15/23 13:55:00 EST, Route to Pharmacy Electronically, [facility] #[id number], 170, cm, 01/31/23 10:06:00 EDT, Height, 94.4, kg, 11/08/22 14:35:00 EDT, Dry Weight Start Date: 04/15/23 Status: Ordered hydrOXYzine hydrochloride 25 mg oral tablet See Instructions, TAKE 1 TABLET BY MOUTH TWICE DAILY NEEDED FOR ANXIETY, # 60 tablet, 5 Refills,Maintenance, 09/18/23 10:13:00 EDT, [facility] #[id number], 170, cm, 07/23/23 16:32:00 EDT, Height, 100, kg, 04/20/23 21:48:00 EST, Dry Weight Start Date: 09/18/23 Status: Ordered NEBULIZER MACHINE AND TUBING NEBULIZER MACHINE AND TUBING, See Instructions, PRN Wheezing/Shortness of Breath, # 1 each, Refills0, Tot. Refills 0, Maintenance, USE NEEDED FOR WHEEZING DX:, 06/17/23 15:49:00 EST, Supply Start Date: 06/17/23 Status: Ordered NuLYTELY Lemon [place] oral powder for reconstitution 240 mL, By Mouth, Every 10 minutes, # 1 each, 0 Refills, Maintenance, 12/03/23 9:52:00 EDT, REC Powder, [facility] #[id number], Partial fill upon patient request if the prescription is for a schedule II opioid drug., 170, cm, 11/26/23 7:18:00 EDT... Start Date: 12/03/23 Status: Ordered PHENobarbital 30 mg oral tablet 1 tablet = 30 mg, By Mouth, 2 times a day, # 60 tablet, 1 Refills, Maintenance, 11/20/23 16:42:00 EDT, Tablet, [facility] #[id number], IF NOT COVERED, please use [employer] coupon and allow pt to pay OOP; $9.09; ASHLEY [id number]; [facility]; Group 33; Membe... Start Date: 11/20/23 Status: Ordered risperiDONE 1 mg oral tablet 1 mg, 1, tablet, By Mouth, Daily, # 90 tablet, Refills 1, Tot. Refills 1, Maintenance, 08/11/23 9:29:00 EDT, Route to Pharmacy Electronically, [facility] #[id number], 170, cm, 07/23/23 16:32:00 EDT, Height, 100, kg, 04/20/23 21:48:00 EST, Dry Weight Start Date: 08/11/23 Stop Date: 02/07/24 Status: Ordered tiZANidine 2 mg oral tablet 2 mg, 1, tablet, By Mouth, 3 times a day, # 84 tablet, Refills 1, Tot. Refills 1, Maintenance, 09/08/23 18:10:00 EDT, Route to Pharmacy Electronically, [facility] #[id number], Partial fill upon patient request if the prescription is for a schedul... Start Date: 09/08/23 Stop Date: 11/03/23 Status: Ordered Trelegy Ellipta 200 mcg-62.5 mcg-25 mcg/inh inhalation powder 1 puffs, Inhalation, Daily, at the same time every day, # 3 each, 3 Refills, Maintenance, 07/23/23 16:56:00 EDT, Powder, [facility] #[id number], Partial fill upon patient request if the prescription is for a schedule II opioid drug., 1 puffs Inha... Start Date: 07/23/23 Stop Date: 07/17/24 Status: Ordered Ultram 50 mg oral tablet 1 tablet = 50 mg, By Mouth, Every 12 hours, PRN for pain, # 20 tablet, 0 Refills, Maintenance, 10/14/23 9:32:00 EDT, Tablet, [facility] #[id number], Partial fill upon patient request if the prescription is for a schedule II opioid drug., 170, cm,... Start Date: 10/14/23 Status: Ordered Ventolin HFA 108 mcg/inh inhalation aerosol with adapter 2 puffs, Inhalation, 4 times a day, PRN for wheezing, # 1 each, 3 Refills, Maintenance, 05/28/23 12:34:00 EST, Aerosol, [facility] #[id number], Partial fill upon patient request if the prescription is for a schedule II opioid drug., 170, cm, 04/04... Start Date: 05/28/23 Status: Ordered Voltaren Arthritis Pain 1% topical gel = 4 Gm, Topically, 4 times a day, # 480 Gm, 4 Refills, Maintenance, 07/24/23 14:31:00 EDT, [facility] #[id number], Partial fill upon patient request if the prescription is for a schedule II opioid drug., 4 Gm Topically 4 times a day, 170, cm, ... Start Date: 07/24/23 Status: Ordered [facility] PAIN RELIEVING LIDOCAINE PATCH 4% [facility] [...] Personnel Name: Roxi BROWN, Compa Hall Position: [facility] PCO Associate Professional Member Role: PCP Address: Address: [address] [facility] [place] [address]- [place] Name: Blaire Iglesias [place] Position: [facility] Amb Office Staff Member Role: Primary Care Nurse Name: Rhiannon Li [place] Position: [facility] Office Staff Member Role: Primary Care Nurse Name: Viral Jolly MD Position: [facility] Physician - Behavioral Health Member Role: Lifetime Consulting Physician Address: Address: [address] [place] [id number]- Care Team Related Persons Name: MAIN MOSER Address: home [address] [place] [address] Name: JORGE GARCIA Address: home [address] [place] [address] Name: LOREE SIFUENTES
--- OUTSIDE RECORDS SUMMARY | 2024-03-03 23:41 | XMS_ITS | Continuity of Care Document ---
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 Start Date: 03/25/23 Status: Ordered Breo Ellipta 100 mcg-25 mcg/inh inhalation powder 1 puffs, Inhalation, Daily, RINSE MOUTH AFTERWARDS., # 1 each, 3 Refills, 11/21/22 10:33:00 EDT, [facility] #[id number], 1 puffs Inhalation Daily,Instr:RINSE MOUTH AFTERWARDS., 170, cm, 11/19/2313:19:00 EDT, Height, 94.4, kg, 11/08/22 14:35:00 E... Start Date: 11/21/22 Status: Ordered calcium (as citrate)-vitamin D 315 mg-250 intl units oral tablet 2 tablet, By Mouth, 2 times a day, # 120 tablet, 11 Refills, Maintenance, 10/27/23 11:47:00 EDT, Tablet, [facility] #[id number], Partial fill upon patient request if the [...] 02/09/24 16:21:00 EDT, Route to Pharmacy Electronically, [facility] #[id number], Partial... Start Date: 02/09/24 Stop Date: 08/07/24 Status: Ordered duloxetine 30 mg oral enteric coated capsule 1 capsule = 30 mg, By Mouth, 2 times a day, do not crush or chew, # 180 capsule, 3 Refills, Maintenance, 12/15/23 12:15:00 EDT, [facility] #[id number], 170, cm, 11/26/23 7:18:00 EDT, Height, 100, kg, 10/09/23 2:02:00 EDT, Dry Weight Start Date: 12/15/23 Status: Ordered duloxetine 30 mg oral enteric coated capsule 1 capsule = 30 mg, By Mouth, 2 times a day, do not crush or chew, # 180 capsule, 3 Refills, Maintenance, 12/20/22 17:50:00 EDT, [facility] #[id number], 170, cm, 12/06/22 0:43:00 EDT, Height, 94.4, kg, 11/08/22 14:35:00 EDT, Dry Weight Start Date: 12/20/22 Status: Ordered fluconazole 150 mg oral tablet 1 tablet = 150 mg, By Mouth, Once, For treatment of Yeast infection, repeat dose if still having symptoms in 72 hours, # 2 tablet, 0 Refills, Soft Stop, 12/19/23 10:58:00 EDT, Tablet, [facility] #[id number], Partial fill upon patient request if t... Start Date: 12/19/23 Status: Ordered gabapentin 300 mg oral capsule 300 mg, 1, capsule, By Mouth, 3 times a day, # 270 capsule, Refills 1, Tot. Refills 1, Maintenance,12/15/23 12:15:00 EDT, Route to Pharmacy Electronically, [facility] #[id number], Partial fill upon patient request, 170, cm, 11/26/23 7:18:00 EDT,... Start Date: 12/15/23 Status: Ordered gabapentin 300 mg oral capsule 300 mg, 1, capsule, By Mouth, 3 times a day, # 270 capsule, Refills 1, Tot. Refills 1, Maintenance,08/11/23 9:29:00 EDT, Route to Pharmacy Electronically, [facility] #[id number], Partial fill upon patient request, 170, cm, 07/23/23 16:32:00 EDT,... Start Date: 08/11/23 Status: Ordered hydroxychloroquine 200 mg oral tablet 1, tablet, By Mouth, 2 times a day, # 60 tablet, Refills 5, Tot. Refills 5, 12/25/23 9:59:00 EDT, Route to Pharmacy Electronically, [facility] #[id number], 170, cm, 12/19/23 10:38:00 EDT, Height, 100, kg, 10/09/23 2:02:00 EDT, Dry Weight Start Date: 12/25/23 Status: Ordered hydrOXYzine hydrochloride 25 mg oral tablet See Instructions, TAKE 1 TABLET BY MOUTH TWICE DAILY NEEDED FOR ANXIETY, # 60 tablet, 5 Refills,Maintenance, 02/09/24 16:21:00 EDT, [facility] #[id number], 170, cm, 02/02/24 10:19:00 EDT, Height, 100, kg, 10/09/23 2:02:00 EDT, Dry Weight Start Date: 02/09/24 Status: Ordered NEBULIZER MACHINE AND TUBING NEBULIZER MACHINE AND TUBING, See Instructions, PRN Wheezing/Shortness of Breath, # 1 each, Refills0, Tot. Refills 0, Maintenance, USE NEEDED FOR WHEEZING DX:, 06/17/23 15:49:00 EST, Supply Start Date: 06/17/23 Status: Ordered NuLYTELY Lemon [place] oral powder for reconstitution 240 mL, By Mouth, Every 10 minutes, # 1 each, 0 Refills, Maintenance, 12/03/23 9:52:00 EDT, REC Powder, [facility] #[id number], Partial fill upon patient request if the prescription is for a schedule II opioid drug., 170, cm, 11/26/23 7:18:00 EDT... Start Date: 12/03/23 Status: Ordered oxyCODONE 5 mg oral tablet 5 mg, 1, tablet, By Mouth, Every 6 hours, PRN, # 5 tablet, Refills 0, Tot. Refills 0, Acute 02/20/24 14:27:00 EDT, as needed for pain, 02/18/24 14:27:00 EDT, Route to Pharmacy Electronically, [facility] #[id number], Partial fill upon patient requ... Start Date: 02/18/24 Stop Date: 02/20/24 Status: Ordered PHENobarbital 30 mg oral tablet 1 tablet = 30 mg, By Mouth, 2 times a day, # 60 tablet, 1 Refills, Maintenance, 12/15/23 12:14:00 EDT, Tablet, [facility] #[id number], IF NOT COVERED, please use goodrx coupon and allow pt to pay OOP; $9.09; BIN [id number]; [facility]; Group [place]; Membe... Start Date: 12/15/23 Status: Ordered PHENobarbital 30 mg oral tablet 1 tablet = 30 mg, By Mouth, 2 times a day, # 60 tablet, 1 Refills, Maintenance, 02/09/24 16:21:00 EDT, Tablet, [facility] #[id number], IF NOT COVERED, please use goodrx coupon and allow pt to pay OOP; $9.09; BIN [id number]; [facility]; Group 33; Membe... Start Date: 02/09/24 Status: Ordered risperiDONE 1 mg oral tablet 1 mg, 1, tablet, By Mouth, Daily, # 90 tablet, Refills 1, Tot. Refills 1, Maintenance, 02/09/24 16:21:00 EDT, Route to Pharmacy Electronically, [facility] #[id number], 170, cm, 02/02/24 10:19:00EDT, Height, 100, kg, 10/09/23 2:02:00 EDT, Dry Weight Start Date: 02/09/24 Stop Date: 08/07/24 Status: Ordered Suboxone 8 mg-2 mg Sublingual Film 3 film, Sublingual, Daily, or as directed, # 90 film, 0 Refills, Maintenance, 12/16/23 14:10:00 EDT, [facility] #[id number], Partial fill upon patient request if the prescription is for a schedule II opioid drug. ALVINA [id number], 3 film Sublingual... Start Date: 12/16/23 Stop Date: 01/15/24 Status: Ordered tiZANidine 2 mg oral tablet 2 mg, 1, tablet, By Mouth, 3 times a day, # 84 tablet, Refills 1, Tot. Refills 1, Maintenance, 12/26/23 9:21:00 EDT, Route to Pharmacy Electronically, [facility] #[id number], Partial fill upon patient request if the prescription is for a schedule... Start Date: 12/26/23 Stop Date: 02/20/24 Status: Ordered Trelegy Ellipta 200 mcg-62.5 mcg-25 mcg/inh inhalation powder 1 puffs, Inhalation, Daily, at the same time every day, # 3 each, 3 Refills, Maintenance, 07/23/23 16:56:00 EDT, Powder, [facility] #[id number], Partial fill upon patient request if the prescription is for a schedule II opioid drug., 1 puffs Inha... Start Date: 07/23/23 Stop Date: 07/17/24 Status: Ordered Ultram 50 mg oral tablet 1 tablet = 50 mg, By Mouth, Every 12 hours, PRN for pain, # 20 tablet, 0 Refills, Maintenance, 10/14/23 9:32:00 EDT, Tablet, [facility] #[id number], Partial fill upon patient request if the prescription is for a schedule II opioid drug., 170, cm,... Start Date: 10/14/23 Status: Ordered Ventolin HFA 108 mcg/inh inhalation aerosol with adapter 2 puffs, Inhalation, 4 times a day, PRN for wheezing, # 3 each, 1 Refills, Maintenance, 02/10/24 10:15:00 EDT, Aerosol, [facility] #[id number], Partial fill upon patient request if the prescription is for a schedule II opioid drug., 170, cm, 01/05... Start Date: 02/10/24 Status: Ordered Voltaren Arthritis Pain 1% topical gel = 4 Gm, Topically, 4 times a day, # 480 Gm, 4 Refills, Maintenance, 07/24/23 14:31:00 EDT, [facility] #[id number], Partial fill upon patient request if the [...] Range]: 1 2 3 Height 170 cm (02/18/24 11:08 AM) Oxygen Saturation [94-100 %] 92 % *L* (02/18/24 2:54 PM) 92 % *L* (02/18/24 2:42 PM) 99 % (02/18/24 2:27 PM) Pulse Rate [55-90 bpm] 79 bpm (02/18/24 11:08 AM) Blood Pressure [90-138/55-84 mm Hg] 158/82mm Hg *H* (02/18/24 2:54 PM) 156/90mm Hg *H* (02/18/24 2:42 PM) 141/79mm Hg *H* (02/18/24 2:27 PM) Respiratory Rate [16-30 br/min] 15 br/min *L* (02/18/24 2:54 PM) 21 br/min (02/18/24 2:42 PM) 20 br/min (02/18/24 2:27 PM) Temperature [96.8-100.4 DegF] 99.6 DegF (02/18/24 2:27 PM) 97.0 DegF (02/18/24 11:08 AM) Mode of Delivery (Oxygen) Room air (02/18/24 2:27 PM) Room air (02/18/24 11:08 AM) Blood pressure sites Arm, left (02/18/24 11:08 AM) Temperature Route Temporal (02/18/24 2:27 PM) Temporal (02/18/24 11:08 AM) Dry Weight 109.2 kg (02/18/24 11:08 AM) Dry Weight Obtained Via Standing scale (02/18/24 11:08 AM) Social History Social History Type Response Smoking Status 10 or more cigarette s (1/2 pack or more)/day in last 30 days; Interested in cessation: No; Patient wants NRT during admission No;Never; Type: Cigarettes; Exposure to Secondhand Smoke: No; Tobacco user in household: Yes; Started at age: 8; entered on: 01/31/23 Sex Note * Maryan Rawls RN: PERFORM Event Display: Discharge/Transfer Note Hospital Authored Date: [id number] Nursing Discharge Note Entered On: 02/18/2024 14:41 EDT Performed On: 02/18/2024 14:40 EDT by Maryan Rawls RN Nursing Discharge Note 2 Discharge Time : 02/18/2024 14:59 EDT Maryan Rawls RN - 02/18/2024 15:39 EDT Discharge Level of Care at Discharge : Home/[facility]oster Care Patient Left Unit Via : Wheelchair Patient Accompanied Off Unit with : Responsible adult DC Instructions Provided & Signed by Pt : Yes Patient Understands D/C Instructions : Yes Patient Instructions Discharge Signed : Yes Did Pt have Specialty Bed or Wound Vac : No Maryan Rawls RN - 02/18/2024 14:40 EDT * Maryan Rawls RN: PERFORM Event Display: Patient Education/Instruction Authored Date: [id number] Surgery Adult Discharge Instructions [address] [id number] Name: DELIA NIX : 1965?? Visit: 02/18/2024 11:03?? Current Date: 02/18/2024 14:42 ?? Account: [id number]?? Surgery Discharge Instructions We would like to thank you for allowing us to assist you with your healthcare needs. The following includes patient education materials and information regarding your injury/illness. Our entire staffstrives to provide an excellent experience for our patients and their families. PLEASE ENSURE YOU FOLLOW-UP PER THE INSTRUCTIONS BELOW! ?? YOUR OPINION IS IMPORTANT TO US! Please complete the survey you may receive by mail or email. Your feedback will be used to make improvements to the healthcare experiences of our patients and their families. Surveys are administered by [employer] ?? If further treatment with your primary care physician or another doctor is recommended, it is important for you to keep the appointment. Call your primary care physician or return to the Emergency Department immediately if your condition worsens, fails to improve, or new symptoms develop. If you need to find a doctor, you can call [facility] Link for a referral at [phone] or toll free at [phone] ([phone]) or log in to [email or web address].. ?? [facility], in keeping with [facility] guidance, no longer requires face masks for staff, patientsor visitors in most situations. Similiar to time spent indoors at other locations, there is the chance that you were exposed to repiratory viruses during your time with us (such as flu or COVID-19). If you develop symptoms concerning for a viral respiratory infection, please seek testing (and treatment if indicated) from your medical provider or home test kit. ?? You can view and manage your care through the patient portal or by using a health care neelima of your choosing. [employer] is a website that allows you to securely view your medical information including your hospital discharge summary, office visit summaries, medications and follow-up visits. You can also request appointments, renew medications, and request access to your medical information using a health care neelima of your choosing, or just ask a question. You are entitled to know the individuals who participated in your treatment. This information is available within your medical record and will be provided upon your request. You can enroll at [email or web address] or register d uring your next office visit. You have been discharged from [facility], Patient Care Unit: Same Day Care??. If you have any questions regarding these instructions after you leave, please call us and we will be happy to assist you. [facility] Your Care Team Attending Physician Babar Knight MD?? Discharging Providers Babar Knight MD Reason for Admission LIPOMA LEFT NECK Primary Care Provider Roxi BROWN, Compa Hall? Advance Directive Health Care Proxy on File Yes - Health Care Proxy What to do next Instructions From Your Doctor ?? Orders?? Daystay Protocol, ??02/18/24 14:26:00 EDT? Follow Dr. Knight's discharge instruction sheet. Scheduled Follow-Up Appointments 2023 10:15 AM EDT ?? With: Babar Knight MD Where: [facility] [address] [place] [address]- Status: Pending 2023 1:40 PM EST ?? With: Danna Sheppard NP Where: [facility] [address] [place] [address]- Status: Pending Friday 3:00 PM EST ?? With: Roxi BROWN, Compa Hall Where: [facility] [address] [place] [address]- Status: Pending Friday 11:30 AM EST ?? Where: [facility] Status: Pending Friday 3:30 PM EST ?? With: Evelyne BROWN, Danna Ramirez Where: [facility] [address] [place] [address]- Status: Pending Discharge Medications DELIA NIX :1965 Visit Date:02/18/2024 Medications: Please continue your medications until treatment is completed or stopped by your provider. You may resume your daily prescription medications. Discuss any questions related to medications with your provider. What How Much When Why Instructions Next Dose New Oxycodone (oxyCODONE 5 mg oral tablet) 1 tab(s) Oral Every 6 hours as needed for as needed for pain [id number] Start when you get home Unchanged Albuterol (Ventolin HFA 108 mcg/ inh inhalation aerosol with adapter) 2 puff(s) Inhalation 4 times a day as needed for for wheezing Bronchial pneumonia Unchanged Albuterol/ Ipratropium (albuterol-ipratropium 3 mg-0.5 mg/ 3 ml inhalation solution) 3 Milliliter Inhalation 4 times a day as needed for Wheezing/Shortness of Breath DX: J45.909 do not use ventoline and Nebs at the same time ?? Unchanged Buprenorphine-Naloxone (Suboxone 8 mg-2 mg Sublingual Film) 3 Film Sublingual Daily Duration: 30 Days or as directed ?? Unchanged Calcium And Vitamin D Combination (calcium (as citrate)-vitamin D 315 mg-250 intl units oral tablet) 2 tab(s) Oral Twice a day Unchanged Clonidine (cloNIDine 0.1 mg oral tablet) 0.5 tab(s) Oral 4 times a day as needed for anxiety, panic, withdrawal symptoms Duration: 30 Days stay hydrated ?? Unchanged Diclofenac Topical (Voltaren Arthritis Pain 1% topical gel) 4 gram Topically 4 times a day Unchanged Duloxetine (duloxetine 30 mg oral enteric coated capsule) 1 capsule Oral Twice a day do not crush or chew ?? Unchanged Duloxetine (duloxetine 30 mg oral enteric coated capsule) 1 capsule Oral Twice a day do not crush or chew ?? Unchanged Durable Medical Equipment (NEBULIZER MACHINE AND TUBING) See instructions USE NEEDED FOR WHEEZING ? DX:, As needed for Wheezing/ Shortness of Breath ?? Unchanged Fluconazole (fluconazole 150 mg oral tablet) 1 tab(s) Oral Once UTI symptoms For treatment of Yeast infection, repeat dose if still having symptoms in 72 hours ?? Unchanged fluticasone-vilanterol (Breo Ellipta 100 mcg-25 mcg/ inh inhalation powder) 1 puff(s) Inhalation Daily RINSE MOUTH AFTERWARDS. ?? Unchanged fluticasone/ umeclidinium/ vilanterol (Trelegy Ellipta 200 mcg-62.5 mcg-25 mcg/ inh inhalation powder) 1 puff(s) Inhalation Daily Duration: 90 Days at the same time every day ?? Unchanged Gabapentin (gabapentin 300 mg oral capsule) 1 capsule Oral 3 times a day Unchanged Gabapentin (gabapentin 300 mg oral capsule) 1 capsule Oral 3 times a day Unchanged Hydroxychloroquine (hydroxychloroquine 200 mg oral tablet) 1 tab(s) Oral Twice a day Unchanged HydrOXYzine (hydrOXYzine hydrochloride 25 mg oral tablet) See instructions TAKE 1 TABLET BY MOUTH TWICE DAILY NEEDED FOR ANXIETY ?? Unchanged Miscellaneous Rx ([employer] PAIN RELIEVING LIDOCAINE PATCH 4%) See instructions USE NEEDED FOR PAIN ?? 1 BOX = 5 PATCHES, As needed for Pain , Moderate ?? Unchanged PEG Electrolyte Solution (NuLYTELY Lemon [place] oral powder for reconstitution) 240 Milliliter Oral Every 10 minutes Unchanged Phenobarbital (PHENobarbital 30 mg oral tablet) 1 tab(s) Oral Twice a day Unchanged Phenobarbital (PHENobarbital 30 mg oral tablet) 1 tab(s) Oral Twice a day Unchanged Risperidone (risperiDONE 1 mg oral tablet) 1 tab(s) Oral Daily Duration: 90 Days Unchanged Tizanidine (tiZANidine 2 mg oral tablet) 1 tab(s) Oral 3 times a day Duration: 28 Days Unchanged Tramadol (Ultram 50 mg oral tablet) 1 tab(s) Oral Every 12 hours as needed for for pain Pharmacy Information [facility] #[id number]: [address] [place], [place] [id number] [phone] Allergies (NKA means No Known Allergies) NKA Valuables and Belongings I fully understand and agree that [facility] accepts no responsibility for all my personal property including clothing, toilet articles, radios, jewelry, dentures, hearing aids, rings, money, or any other property that is in my possession or is brought to me after admission. I understand certain valuables may be placed in a hospital safe for a short period of time. I understand that the hospital is not liable for loss or damage due to accident, fire, or other natural occurrence while said property is in the safe. I accept full responsibility for any personal property that I keep with me, and will not hold the hospital responsible in case of loss or disappearance. I acknowledge that i have been encouraged to send valuables and belongings home. ?? Review of Valuable and Belonging List: With patient Date for Pt to Sign Valuables/Belongings: 02/18/24 11:27:00 ?? Common Emergency Awareness Tips IS IT A STROKE? Act FAST and Check for these signs: FACE Does the face look uneven? ARM Does one arm drift down? SPEECH Does their speech sound strange? TIME Call at any sign of stroke ?? Heart Attack Signs Chest discomfort: Most heart attacks involve discomfort in the center of the chest and lasts more than a few minutes, or goes away and comes back. It can feel like uncomfortable pressure, squeezing, fullness or pain. Discomfort in upper body: Symptoms can include pain or discomfort in one or both arms, back, neck, jaw or stomach. Shortness of breath: With or without discomfort. Other signs: Breaking out in a cold sweat, nausea, or lightheaded. Remember, MINUTES DO MATTER. If you experience any of these heart attack warning signs, call to get immediate medical attention! ?? Smoking can increase your chances of developing chronic health problems and can cause harmful effects to other family members in your house. If you smoke, you are strongly encouraged to quit. Please call [facility] [employer] Link at [phone] or [phone]) or log in to [email or web address] for referrals to smoking cessation programs. ?? The National Suicide Prevention Hotline is available 25/11 if you or someone you know needs to find a reason to keep living. By calling 4-801-348-[employer] (4720) you'll be connected to a skilled, trained counselor at a crisis center in your area. SURGERY DISCHARGE INSTRUCTIONS SIGNATURE PAGE DELIA NIX Location:[facility] Registration Date and Time:02/18/2024 11:03 EDT Primary Care Physician: Compa Diane NP, Attending Physician: Babar Knight MD, I CHANCEANTWAN DELIA, have received the above patient education materials/instructions and have verbalized understanding. If ambulance or transport services are being used I further acknowledge being given a choice of service. ?? If you need to contact me, please call me at this number: . Patient/Nut Chopper Name: Patient/Nut Chopper Signature: Relationship to Patient: Witness Name/Signature: Date: * Maryan Rawls RN: PERFORM, SIGN, VERIFY Event Display: Patient Education Handout Authored Date: Patient Care team information Care Team Personnel Name: oRxi BROWN, Compa Hall Position: [facility] PCO Associate Professional Member Role: PCP Address: Address: [address] [place] [address]- Name: Blaire Iglesias [place] Position: [facility] Office Staff Member Role: Primary Care Nurse Name: Rhiannon Li [place] Position: [facility] Office Staff Member Role: Primary Care Nurse Name: Viral Jolly MD Position: [facility] Physician - Behavioral Health Member Role: Lifetime Consulting Physician Address: Address: [address] [place] [address]- Care Team Related Persons Name: MAIN MOSER Address: home [address] [place] [address] Name: JORGE GARCIA Address: home [address] [place] [address] Name: LOREE SIFUENTES
--- OUTSIDE RECORDS SUMMARY | 2024-03-03 23:42 | XMS_ITS | Continuity of Care Document ---
Author Organization [facility] Primary [facility] [place] Address [address] [place] [address]- Care Team Providers Care Convention Services Director Name Role Phone Fine STEPHANIE, Compa Hall Primary Care Physician Encounter [facility] Date(s): 01/10/23 - 02/15/23 [facility] [place] [address] [place] [address]- Attending Physician: Sushila KU, Jcarlos Bell Allergies, Adverse Reactions, Alerts No Known Allergies Immunizations Given and Recorded Vaccine Date Status Refusal Reason SARS-CoV-2 (COVID-19) mRNA BNT-162b2 vac 09/08/20 Recorded SARS-CoV-2 (COVID-19) mRNA BNT-162b2 vac 08/18/20 Recorded pneumococcal 23-valent vaccine 10/21/16 Given tetanus-diphtheria toxoids (Td) 05/05/03 Recorded Medications Breo Ellipta 100 mcg-25 mcg/inh inhalation powder 1 puffs, Inhalation, Daily, RINSE MOUTH AFTERWARDS., # 1 each, 3 Refills, 11/21/22 10:33:00 EDT, [facility] #[id number], 1 puffs Inhalation Daily,Instr:RINSE MOUTH AFTERWARDS., 170, cm, 11/19/2313:19:00 EDT, Height, 94.4, kg, 11/08/22 14:35:00 E... Start Date: 11/21/22 Status: Ordered cloNIDine 0.1 mg oral tablet 0.05 mg, 0.5, tablet, By Mouth, 4 times a day, PRN, stay hydrated, # 60 tablet, Refills 1, Tot. Refills 1, Maintenance, anxiety, panic, withdrawal symptoms, 02/12/23 10:37:00 EDT, Route to Pharmacy Electronically, [facility] #[id number], Partial... Start Date: 02/12/23 Status: Ordered duloxetine 30 mg oral enteric coated capsule 1 capsule = 30 mg, By Mouth, 2 times a day, do not crush or chew, # 180 capsule, 3 Refills, Maintenance, 12/20/22 17:50:00 EDT, [facility] #[id number], 170, cm, 12/06/22 0:43:00 EDT, Height, 94.4, kg, 11/08/22 14:35:00 EDT, Dry Weight Start Date: 12/20/22 Status: Ordered famotidine 20 mg oral tablet 20 mg, 1, tablet, By Mouth, Daily, OV 5-6-20, # 30 tablet, Refills 5, Tot. Refills 5, Maintenance, 08/21/20 12:25:00 EDT, Route to Pharmacy Electronically, [facility]/pharmacy #[id number], 170, cm, 08/16/20 15:32:00 EDT, Height, 107.3, kg, 06/22/20 13:29:00 EST, D... Start Date: 08/21/20 Status: Ordered gabapentin 300 mg oral capsule 300 mg, 1, capsule, By Mouth, 3 times a day, # 270 capsule, Refills 1, Tot. Refills 1, Maintenance,02/12/23 10:36:00 EDT, Route to Pharmacy Electronically, [facility] #[id number], Partial fill upon patient request, 170, cm, 01/31/23 10:06:00 EDT... Start Date: 02/12/23 Status: Ordered hydroxychloroquine 200 mg oral tablet 1, tablet, By Mouth, 2 times a day, # 60 tablet, Refills 5, Tot. Refills 5, 05/16/22 16:23:00 EST, Route to Pharmacy Electronically, [facility] #[id number], 175, cm, 05/01/22 15:32:00 EST, Height, 75, kg, 05/01/22 15:32:00 EST, Dry Weight Start Date: 05/16/22 Status: Ordered hydrOXYzine hydrochloride 25 mg oral tablet 1 tablet = 25 mg, By Mouth, Daily, PRN anxiety, for 30 days, # 30 tablet, 3 Refills, Acute 06/12/2409:37:00 EST, 02/12/23 10:37:00 EDT, Tablet, [facility] #[id number], Partial fill upon patientrequest if the prescription is for a schedule II op... Start Date: 02/12/23 Stop Date: 06/12/23 Status: Ordered ProAir HFA 90 mcg/inh inhalation aerosol 2 puffs, Inhalation, Every 4 to 6 hours, PRN NEEDED FOR SHORTNESS OF BREATH OR WHEEZING, # 18 Gm, 5 Refills, 02/04/23 10:36:00 EDT, [facility] #[id number], 2 puffs Inhalation Every 4 to 6 hours,PRN: NEEDED FOR SHORTNESS OF BREATH OR WHEEZING... Start Date: 02/04/23 Status: Ordered risperiDONE 1 mg oral tablet 1 mg, 1, tablet, By Mouth, Daily, # 90 tablet, Refills 1, Tot. Refills 1, Maintenance, 02/12/23 10:37:00 EDT, Route to Pharmacy Electronically, [facility] #[id number], 170, cm, 01/31/23 10:06:00EDT, Height, 94.4, kg, [...] film, 1 Refills, Maintenance, 01/13/23 10:32:00 EDT, [facility] #[id number], Partial fill upon patient request if the prescription is for a schedule II opioid drug. AVLINA [id number];... Start Date: 01/13/23 Stop Date: 03/14/23 Status: [...] Team Personnel Name: Compa Diane NP Position: [facility] PCO Associate Professional Member Role: PCP Address: Address: [address] [place] [address]- Name: Blaire Iglesias [place] Position: [facility] RN Member Role: Primary Care Nurse Name: Rhiannon Gibson Position: [facility] RN Member Role: Primary Care Nurse Name: Viral Jolly MD Position: [facility] Physician - Behavioral Health Member Role: Lifetime Consulting Physician Address: Address: [address] [place] [address]- Care Team Related Persons Name: MAIN MOSER Address: home [address] [place] [address] Name: JORGE GARCIA Address: home [address] [place] [address] Name: LOREE SIFUENTES
--- OUTSIDE RECORDS SUMMARY | 2024-03-03 23:42 | XMS_ITS | Continuity of Care Document ---
Author Organization [facility] Primary Car [facility] [place] Address [address] [place] [address]- Care Team Providers Care Laminating Machine Operator Name Role Phone Gen BROWN, Claribel Primary Care Physician [phone] Encounter [facility] Date(s): 08/12/22 - 09/11/22 [facility] [place] [address] [place] [address]- Allergies, Adverse Reactions, Alerts No Known Allergies [...] # 60 each, 1 Refills, [id number], 30, INHALE 1 PUFF BY MOUTH EVERY DAY. RINSE MOUTH AFTERWARDS., 170, cm, 03/07/21 11:09:00 EDT, Height, 107.3, kg, 06/22/20 13:29:00 EST, Dry Weight Start Date: 11/12/21 Status: Ordered diclofenac 1% topical gel = 2 Gm, Topically, 2 times a day, # 100 Gm, 2 Refills, 05/16/22 16:23:00 EST, [facility] #[id number], 25, 2 Gm Topically 2 times a day, 175, cm, 05/01/22 15:32:00 EST, Height, 75, kg, 05/01/22 15:32:00 EST, Dry Weight Start Date: 05/16/22 Status: Ordered duloxetine 30 mg oral enteric coated capsule 1 capsule = 30 mg, By Mouth, 2 times a day, do not crush or chew, # 180 capsule, 3 Refills, Maintenance, 02/19/22 14:28:00 EDT, [facility] #[id number], 170, cm, 03/07/21 11:09:00 EDT, Height, 107.3, kg, 06/22/20 13:29:00 EST, Dry Weight Start Date: 02/19/22 Status: Ordered famotidine 20 mg oral tablet 20 mg, 1, tablet, By Mouth, Daily, OV 5-6-20, # 30 tablet, Refills 5, Tot. Refills 5, Maintenance, 08/21/20 12:25:00 EDT, Route to Pharmacy Electronically, [facility]/pharmacy #[id number], 170, cm, 08/16/20 15:32:00 EDT, Height, 107.3, kg, 06/22/20 13:29:00 EST, D... Start Date: 08/21/20 Status: Ordered gabapentin 300 mg oral capsule 300 mg, 1, capsule, By Mouth, 3 times a day, # 270 capsule, Refills 1, Tot. Refills 1, Maintenance,08/21/21 14:14:00 EDT, Route to Pharmacy Electronically, [facility] #[id number], Partial fill upon patient request, 170, cm, 03/07/21 11:09:00 EDT... Start Date: 08/21/21 Status: Ordered gabapentin 300 mg oral capsule 300 mg, 1, capsule, By Mouth, 3 times a day, # 270 capsule, Refills 3, Tot. Refills 3, Maintenance,02/19/22 14:28:00 EDT, Route to Pharmacy Electronically, [facility] #[id number], Partial fill upon patient request, 170, cm, 03/07/21 11:09:00 EDT... Start Date: 02/19/22 Status: Ordered hydroxychloroquine 200 mg oral tablet 1, tablet, By Mouth, 2 times a day, # 60 tablet, Refills 5, Tot. Refills 5, 05/16/22 16:23:00 EST, Route to Pharmacy Electronically, [facility] #[id number], 175, cm, 05/01/22 15:32:00 EST, Height, 75, [...] 18 Gm, 5 Refills, 03/20/22 16:08:00 EST, [facility] #[id number], 2 puffs Inhalation Every 4 to 6 hours,PRN: NEEDED FOR SHORTNESS OF BREATH OR WHEEZING... Start Date: 03/20/22 Status: Ordered risperiDONE 1 mg oral tablet 1 mg, 1, tablet, By Mouth, Daily, # 90 tablet, Refills 3, Tot. Refills 3, Maintenance, 02/19/22 14:27:00 EDT, Route to Pharmacy Electronically, [facility] #[id number], 170, cm, 03/07/21 11:09:00EDT, Height, 107.3, kg, 06/22/20 13:29:00 EST, Dry... Start Date: 02/19/22 Stop Date: 02/14/23 Status: Ordered Suboxone 8 mg-2 mg Sublingual Film 1 film, Sublingual, 3 times a day, dissolve under the tongue, # 90 film, 1 Refills, Maintenance, 07/15/22 12:58:00 EDT, [facility] #[id number], Partial fill upon patient request if the prescription is for a schedule II opioid drug. ALVINA [id number],... Start Date: 07/15/22 Stop Date: 09/13/22 Status: Ordered Suboxone 8 mg-2 mg Sublingual Film 1 film, Sublingual, 3 times a day, dissolve under the tongue, # 21 film, 0 Refills, Maintenance, 04/05/22 8:36:00 EST, [facility] #[id number], Partial fill upon patient request if the prescription is for a schedule II opioid drug. ALVINA [id number],... Start Date: 04/05/22 Stop Date: 04/12/22 Status: Ordered Suboxone 8 mg-2 mg Sublingual Film 1 film, Sublingual, 3 times a day, dissolve under the tongue, # 90 film, 1 Refills, Maintenance, 02/08/22 13:04:00 EDT, [facility] #[id number], Partial fill upon patient request if the prescription is for a schedule II opioid drug. ALVINA [id number],... Start Date: 02/08/22 Stop Date: 04/09/22 Status: Ordered Suboxone 8 mg-2 mg Sublingual Film 1 film, Sublingual, 3 times a day, dissolve under the tongue, # 90 film, 1 Refills, Maintenance, 09/11/22 4:31:00 EDT, [facility] #[id number], Partial fill upon patient request if the prescription is for a schedule II opioid drug. ALVINA [id number];... Start Date: 09/11/22 Stop Date: 11/10/22 Status: Ordered Suboxone 8 mg-2 mg Sublingual Film 1 film, Sublingual, 3 times a day, dissolve under the tongue, # 90 film, 1 Refills, Maintenance, 12/10/21 14:40:00 EDT, [facility] #[id number], Partial fill upon patient request if the prescription is for a schedule II opioid drug. ALVINA [id number],... Start Date: 12/10/21 Stop Date: 02/08/22 Status: Ordered Suboxone 8 mg-2 mg Sublingual Film 1 film, Sublingual, 3 times a day, dissolve under the tongue, # 21 film, 0 Refills, Maintenance, 04/12/22 14:58:00 EST, [facility] #[id number], Partial fill upon patient request if the prescription is for a schedule II opioid drug. ALVINA [id number],... Start Date: 04/12/22 Stop Date: 04/19/22 Status: Ordered Suboxone 8 mg-2 mg sublingual film 3 film, Sublingual, Daily, [id number], # 90 film, 1 Refills, Maintenance, 10/21/21 9:55:00 EDT, [facility] #[id number], 3 film Sublingual Daily,x30 days,Instr:[id number], 170, cm, 03/07/21 11:09:00 EDT, Height, 107.3, kg, 06/22/20 13:29:00 EST, Dry... Start Date: 10/21/21 Stop Date: 12/20/21 Status: Ordered traZODone 50 mg oral tablet 50 mg, 1, tablet, By Mouth, Daily at bedtime, PRN, as needed, # 90 tablet, Refills 3, Tot. Refills 3, Maintenance, Sleep, 02/19/22 14:27:00 EDT, Route to Pharmacy Electronically, [facility]#[id number], 170, cm, 03/07/21 11:09:00 EDT, Height, 107... [...] Care Team Personnel Name: Blaire Crandall Position: [facility] RN Member Role: Primary Care Nurse Name: Rhiannon Gibson Position: [facility] RN Member Role: Primary Care Nurse Name: Claribel Blevins NP Position: [facility] PCO Associate Professional Member Role: PCP Address: Address: [address] [place] [address]- [place] Name: Viral Jolly MD Position: [facility] Psychiatry MD Member Role: Lifetime Consulting Physician Address: Address: [address] [place] [address]- Care Team Related Persons Name: MAIN MOSER Address: home [address] [place] [address] Name: JORGE GARCIA Address: [address] [place] [address] Name: LOREE SIFUENTES
--- OUTSIDE RECORDS SUMMARY | 2024-03-03 23:42 | XMS_ITS | Continuity of Care Document ---
Author Organization [facility] [place] Address [address] [place] [address]- Care Team Providers Care Jumpbasting Canvas Baster Name Role Phone Roxi BROWN, Compa Hall Primary Care Physician Encounter [facility] Date(s): 04/11/23 - 05/11/23 [facility] [place] [address] [place] [address]- Allergies, Adverse Reactions, Alerts No Known Allergies [...] 11 Refills, Maintenance, 03/25/23 12:53:00 EST, Solution, [facility] #[id number], 3 mL Inhalation 4 times a da... Start Date: 03/25/23 Status: Ordered Breo Ellipta 100 mcg-25 mcg/inh inhalation powder 1 puffs, Inhalation, Daily, RINSE MOUTH AFTERWARDS., # 1 each, 3 Refills, 11/21/22 10:33:00 EDT, [facility] #[id number], 1 puffs Inhalation Daily,Instr:RINSE MOUTH AFTERWARDS., 170, cm, 11/19/2313:19:00 EDT, Height, 94.4, kg, 11/08/22 14:35:00 E... Start Date: 11/21/22 Status: Ordered cloNIDine 0.1 mg oral tablet 0.05 mg, 0.5, tablet, By Mouth, 4 times a day, PRN, stay hydrated, # 60 tablet, Refills 3, Tot. Refills 3, Maintenance, anxiety, panic, withdrawal symptoms, 03/25/23 12:52:00 EST, Route to Pharmacy Electronically, [facility] #[id number], Partial... Start Date: 03/25/23 Status: Ordered duloxetine 30 mg oral enteric coated capsule 1 capsule = 30 mg, By Mouth, 2 times a day, do not crush or chew, # 180 capsule, 3 Refills, Maintenance, 12/20/22 17:50:00 EDT, [facility] #[id number], 170, cm, 12/06/22 0:43:00 EDT, Height, 94.4, kg, 11/08/22 14:35:00 EDT, Dry Weight Start Date: 12/20/22 Status: Ordered gabapentin 300 mg oral capsule 300 mg, 1, capsule, By Mouth, 3 times a day, # 270 capsule, Refills 1, Tot. Refills 1, Maintenance,02/12/23 10:36:00 EDT, Route to Pharmacy Electronically, [facility] #[id number], Partial fill upon patient request, 170, cm, 01/31/23 10:06:00 EDT... Start Date: 02/12/23 Status: Ordered hydroxychloroquine 200 mg oral tablet 1, tablet, By Mouth, 2 times a day, # 60 tablet, Refills 5, Tot. Refills 5, 04/15/23 13:55:00 EST, Route to Pharmacy Electronically, [facility] #[id number], 170, cm, 01/31/23 10:06:00 EDT, Height, 94.4, kg, 11/08/22 14:35:00 EDT, Dry Weight Start Date: 04/15/23 Status: Ordered hydrOXYzine hydrochloride 25 mg oral tablet 1 tablet = 25 mg, By Mouth, Daily, PRN anxiety, for 30 days, # 30 tablet, 3 Refills, Acute 07/23/2411:53:00 EDT, 03/25/23 12:53:00 EST, Tablet, [facility] #[id number], Partial fill upon patientrequest if the prescription is for a schedule II op... Start Date: 03/25/23 Stop Date: 07/23/23 Status: Ordered risperiDONE 1 mg oral tablet 1 mg, 1, tablet, By Mouth, Daily, # 90 tablet, Refills 1, Tot. Refills 1, Maintenance, 02/12/23 10:37:00 EDT, Route to Pharmacy Electronically, [facility] #[id number], 170, cm, 01/31/23 10:06:00EDT, Height, 94.4, kg, 11/08/22 14:35:00 EDT, Dry W... Start Date: 02/12/23 Stop Date: 08/11/23 Status: Ordered Suboxone 8 mg-2 mg Sublingual Film 1 film, Sublingual, 3 times a day, dissolve under the tongue, # 90 film, 1 Refills, Maintenance, 03/14/23 10:32:00 EST, [facility] #[id number], Partial fill upon patient request if the prescription is for a schedule II opioid drug. ALVINA [id number];... Start Date: 03/14/23 Stop Date: 05/13/23 Status: Ordered tiZANidine 2 mg oral tablet 2 mg, 1, tablet, By Mouth, 3 times a day, # 21 tablet, Refills 0, Tot. Refills 0, Maintenance, 04/22/23 9:05:00 EST, Route to Pharmacy Electronically, [facility] #[id number], Partial fill upon patient request if the prescription is for a schedule... Start Date: 04/22/23 Stop Date: 04/29/23 Status: Ordered Ventolin HFA 108 mcg/inh inhalation aerosol with adapter 2 puffs, Inhalation, 4 times a day, PRN for wheezing, # 18 Gm, 0 Refills, Maintenance, 04/17/23 15:20:00 EST, Aerosol, [facility] #[id number], Partial fill upon patient request if the prescription is for a schedule II opioid drug., 170, cm, 04/17... Start Date: 04/17/23 Status: Ordered Voltaren Arthritis Pain 1% topical gel = 4 Gm, Topically, 4 times a day, # 480 Gm, 4 Refills, Maintenance, 04/10/23 11:37:00 EST, [facility] #[id number], Partial fill upon patient request if the prescription is for a schedule II opioid drug., 4 Gm Topically 4 times a day, 170, cm, ... Start Date: 04/10/23 Status: Ordered [facility] PAIN RELIEVING LIDOCAINE PATCH 4% [employer] PAIN RELIEVING LIDOCAINE PATCH 4%, See Instructions, [...] Personnel Name: Roxi BROWN, Compa Hall Position: [facility] PCO Associate Professional Member Role: PCP Address: Address: [address] [facility] [place] [address]- [place] Name: Blaire Iglesias [place] Position: [facility] RN Member Role: Primary Care Nurse Name: Rhiannon Gibson Position: [facility] RN Member Role: Primary Care Nurse Name: Viral Jolly MD Position: [facility] Physician - Behavioral Health Member Role: Lifetime Consulting Physician Address: Address: [address] [place] [address]- Care Team Related Persons Name: MAIN MOSER Address: home [address] [place] [address] Name: JORGE GARCIA Address: home [address] [place] [address] Name: LOREE SIFUENTES
--- OUTSIDE RECORDS SUMMARY | 2024-03-03 23:42 | XMS_ITS | Continuity of Care Document ---
Author Organization [facility] Primary Car [facility] [place] Address [address] [place] [address]- Care Team Providers Care Conveyor Maintenance Mechanic Name Role Phone Angela BROWN, Robyn Martinez Primary Care Physician Encounter [facility] Date(s): 06/19/20 - 07/19/20 [facility] [place] [address] [place] [address]- Allergies, Adverse Reactions, Alerts Substance Reaction Severity [...] Refills, Maintenance, 06/19/20 16:07:00 EST, [id number], 20, INHALE 2 PUFFS BY MOUTH EVERY 4 TO 6 HOURS NEEDED FOR WHEEZE FOR SHORTNESS... Start Date: 06/19/20 Status: Ordered Suboxone 8 mg-2 mg sublingual film 2.5 FILMS, Sublingual, Daily, [id number], # 75 film, 1 Refills, Maintenance, 04/26/20 16:38:00 EST, [facility] #[id number], 2.5 FILMS Sublingual Daily,Instr:[id number], 163, cm, 04/26/20 14:26:00 EST, Height, 105, [...]
--- OUTSIDE RECORDS SUMMARY | 2024-03-03 23:42 | XMS_ITS | Continuity of Care Document ---
Author Organization [facility] Primary [facility] [place] Address [address] [place] [address]- Care Team Providers Care Orchid Superintendent Name Role Phone Angela BROWN, Robyn Martinez Primary Care Physician Encounter [facility] [id number] Date(s): 04/22/19 - 05/23/19 [facility] [place] [address] [place] [address]- [facility] Attending Physician: Marcos Ortiz MD Admitting Physician: Marcos Ortiz MD Allergies, Adverse Reactions, Alerts Substance Reaction [...]
--- OUTSIDE RECORDS SUMMARY | 2024-03-03 23:42 | XMS_ITS | Continuity of Care Document ---
Author Organization [facility] Address [address] [place] [address]- Care Team Providers Care Webbing Inspector Name Role Phone Fine TERMITE CONTROL REPRESENTATIVE, Compa Hall Primary Care Physician Encounter [facility] Date(s): 10/10/23 - 11/09/23 [facility] [address] [place] [address]- Attending Physician: AdmMaddie childs Admitting Physician: AdmtrMaddie [...] 11 Refills, Maintenance, 03/25/23 12:53:00 EST, Solution, [email or web address] #[id number], 3 mL Inhalation 4 times a da... Start Date: 03/25/23 Status: Ordered Breo Ellipta 100 mcg-25 mcg/inh inhalation powder 1 puffs, Inhalation, Daily, [employer]., # 1 each, 3 Refills, 11/21/22 10:33:00 EDT, [email or web address] #[id number], 1 puffs Inhalation Daily,Instr:RIN[employer]WAR[employer]., 170, cm, 11/19/2313:19:00 EDT, Height, 94.4, kg, 11/08/22 14:35:00 E... Start Date: 11/21/22 Status: Ordered calcium (as citrate)-vitamin D 315 mg-250 intl units oral tablet 2 tablet, By Mouth, 2 times a day, # 120 tablet, 11 Refills, Maintenance, 10/27/23 11:47:00 EDT, Tablet, [email or web address] #[id number], Partial fill upon patient request if the [...] 09/18/23 10:13:00 EDT, Route to Pharmacy Electronically, [email or web address] #[id number], Partial... Start Date: 09/18/23 Stop Date: 03/16/24 Status: Ordered doxycycline hyclate 100 mg oral capsule 1 capsule = 100 mg, By Mouth, 2 times a day, for 7 days, # 14 capsule, 0 Refills, Acute 11/11/23 9:45:00 EDT, 11/04/23 9:45:00 EDT, Capsule, [email or web address] #[id number], Partial fill upon patient request if the prescription is for a schedule II opioid... Start Date: 11/04/23 Stop Date: 11/11/23 Status: Ordered duloxetine 30 mg oral enteric coated capsule 1 capsule = 30 mg, By Mouth, 2 times a day, do not crush or chew, # 180 capsule, 3 Refills, Maintenance, 12/20/22 17:50:00 EDT, [email or web address] #[id number], 170, cm, 12/06/22 0:43:00 EDT, Height, 94.4, kg, 11/08/22 14:35:00 EDT, Dry Weight Start Date: 12/20/22 Status: Ordered gabapentin 300 mg oral capsule 300 mg, 1, capsule, By Mouth, 3 times a day, # 270 capsule, Refills 1, Tot. Refills 1, Maintenance,08/11/23 9:29:00 EDT, Route to Pharmacy Electronically, [email or web address] #[id number], Partial fill upon patient request, 170, cm, 07/23/23 16:32:00 EDT,... Start Date: 08/11/23 Status: Ordered hydroxychloroquine 200 mg oral tablet 1, tablet, By Mouth, 2 times a day, # 60 tablet, Refills 5, Tot. Refills 5, 04/15/23 13:55:00 EST, Route to Pharmacy Electronically, [email or web address] #[id number], 170, cm, 01/31/23 10:06:00 EDT, Height, 94.4, kg, 11/08/22 14:35:00 EDT, Dry Weight Start Date: 04/15/23 Status: Ordered hydrOXYzine hydrochloride 25 mg oral tablet See Instructions, TAKE 1 TABLET BY MOUTH TWICE DAILY NEEDED FOR ANXIETY, # 60 tablet, 5 Refills,Maintenance, 09/18/23 10:13:00 EDT, [email or web address] #[id number], 170, cm, 07/23/23 16:32:00 EDT, Height, 100, [...] 08/11/23 9:29:00 EDT, Route to Pharmacy Electronically, [email or web address] #[id number], 170, cm, 07/23/23 16:32:00 EDT, Height, 100, kg, 04/20/23 21:48:00 EST, Dry Weight Start Date: 08/11/23 Stop Date: 02/07/24 Status: Ordered Suboxone 8 mg-2 mg Sublingual Film 1 film, Sublingual, 3 times a day, for 14 days, dissolve under the tongue, # 42 film, 0 Refills, Hard Stop 11/25/23 9:01:00 EDT, 11/11/23 9:01:00 EDT, [email or web address] #[id number], Partial fill upon patient request if the prescription is for a schedule... Start Date: 11/11/23 Stop Date: 11/25/23 Status: Ordered Suboxone 8 mg-2 mg Sublingual Film 1 film, Sublingual, 3 times a day, for 30 days, dissolve under the tongue, # 90 film, 1 Refills, Hard Stop 11/11/23 9:01:00 EDT, 09/12/23 9:01:00 EDT, [email or web address] #[id number], Partial fill upon patient request if the prescription is for a schedule... Start Date: 09/12/23 Stop Date: 11/11/23 Status: Ordered tiZANidine 2 mg oral tablet 2 mg, 1, tablet, By Mouth, 3 times a day, # 84 tablet, Refills 1, Tot. Refills 1, Maintenance, 09/08/23 18:10:00 EDT, Route to Pharmacy Electronically, [email or web address] #[id number], Partial fill upon patient request if the prescription is for a schedul... Start Date: 09/08/23 Stop Date: 11/03/23 Status: Ordered tobramycin 0.3% ophthalmic solution 1 drops, Eyes, Both, 4 times a day, for 7 days, # 5 mL, 0 Refills, Acute 11/11/23 9:45:00 EDT, 11/04/23 9:45:00 EDT, Solution, [email or web address] #[id number], Partial fill upon patient request if the prescription is for a schedule II opioid drug., 1 drop... Start Date: 11/04/23 Stop Date: 11/11/23 Status: Ordered Trelegy Ellipta 200 mcg-62.5 mcg-25 mcg/inh inhalation powder 1 puffs, Inhalation, Daily, at the same time every day, # 3 each, 3 Refills, Maintenance, 07/23/23 16:56:00 EDT, Powder, [email or web address] #[id number], Partial fill upon patient request if the prescription is for a schedule II opioid drug., 1 puffs Inha... Start Date: 07/23/23 Stop Date: 07/17/24 Status: Ordered Ultram 50 mg oral tablet 1 tablet = 50 mg, By Mouth, Every 12 hours, PRN for pain, # 20 tablet, 0 Refills, Maintenance, 10/14/23 9:32:00 EDT, Tablet, [facility] #[id number], Partial fill upon patient request if the prescription is for a schedule II opioid drug., 170, cm,... Start Date: 10/14/23 Status: Ordered Ventolin HFA 108 mcg/inh inhalation aerosol with adapter 2 puffs, Inhalation, 4 times a day, PRN for wheezing, # 1 each, 3 Refills, Maintenance, 05/28/23 12:34:00 EST, Aerosol, [facility] #[id number], Partial fill upon patient request if the prescription is for a schedule II opioid drug., 170, cm, 04/04... Start Date: 05/28/23 Status: Ordered Voltaren Arthritis Pain 1% topical gel = 4 Gm, Topically, 4 times a day, # 480 Gm, 4 Refills, Maintenance, 07/24/23 14:31:00 EDT, [facility] #[id number], Partial fill upon patient request if the [...] Team Personnel Name: Compa Diane NP Position: [facility] PCO Associate Professional Member Role: PCP Address: Address: [address] [facility] [place] [address]- Name: Blaire Iglesias [place] Position: [facility] Office Staff Member Role: Primary Care Nurse Name: Rhiannon Li [place] Position: [facility] Office Staff Member Role: Primary Care Nurse Name: Viral Jolly MD Position: [facility] Physician - Behavioral Health Member Role: Lifetime Consulting Physician Address: Address: [address] [place] [address]- Care Team Related Persons Name: MAIN MOSER Address: home [address] [place] [address] Name: JORGE GARCIA Address: home [address] [place] [address] Name: LOREE SIFUENTES
--- OUTSIDE RECORDS SUMMARY | 2024-03-03 23:42 | XMS_ITS | Continuity of Care Document ---
Author Organization [facility] Address [address] [place] [address]- Care Team Providers Care Electronic Game Developer Name Role Phone Roxi BROWN, Compa Hall Primary Care Physician Encounter [facility] Date(s): 10/21/23 - 11/20/23 [facility] [address] [place] [address]- Allergies, Adverse Reactions, Alerts No Known Allergies Immunizations Given and Recorded Vaccine Date Status Refusal Reason SARS-CoV-2 (COVID-19) mRNA BNT-162b2 vac 09/08/20 Recorded SARS-CoV-2 (COVID-19) mRNA BNT-162y8 vac 08/18/20 Recorded pneumococcal 23-valent vaccine 10/21/16 Given tetanus-diphtheria toxoids (Td) 05/05/03 Recorded Medications albuterol-ipratropium 3 mg-0.5 mg/3 ml inhalation solution 3 mL, Inhalation, 4 times a day, PRN Wheezing/Shortness of Breath, DX: J45.909 do not use ventolineand Nebs at the same time, # 90 mL, 11 Refills, Maintenance, 03/25/23 12:53:00 EST, Solution, [facility] #[id number], 3 mL Inhalation 4 times a da... Start Date: 03/25/23 Status: Ordered Breo Ellipta 100 mcg-25 mcg/inh inhalation powder 1 puffs, Inhalation, Daily, [employer]., # 1 each, 3 Refills, 11/21/22 10:33:00 EDT, [facility] #[id number], 1 puffs Inhalation Daily,Instr:RIN[employer]WAR[employer]., 170, cm, 11/19/2313:19:00 EDT, Height, 94.4, kg, 11/08/22 14:35:00 E... Start Date: 11/21/22 Status: Ordered calcium (as citrate)-vitamin D 315 mg-250 intl units oral tablet 2 tablet, By Mouth, 2 times a day, # 120 tablet, 11 Refills, Maintenance, 10/27/23 11:47:00 EDT, Tablet, [facility] #[id number], Partial fill upon patient request if the [...] 09/18/23 10:13:00 EDT, Route to Pharmacy Electronically, [facility] #[id number], Partial... Start Date: 09/18/23 Stop Date: 03/16/24 Status: Ordered duloxetine 30 mg oral enteric coated capsule 1 capsule = 30 mg, By Mouth, 2 times a day, do not crush or chew, # 180 capsule, 3 Refills, Maintenance, 12/20/22 17:50:00 EDT, [facility] #[id number], 170, cm, 12/06/22 0:43:00 EDT, Height, 94.4, kg, 11/08/22 14:35:00 EDT, Dry Weight Start Date: 12/20/22 Status: Ordered gabapentin 300 mg oral capsule 300 mg, 1, capsule, By Mouth, 3 times a day, # 270 capsule, Refills 1, Tot. Refills 1, Maintenance,08/11/23 9:29:00 EDT, Route to Pharmacy Electronically, [facility] #[id number], Partial fill upon patient request, 170, cm, 07/23/23 16:32:00 EDT,... Start Date: 08/11/23 Status: Ordered hydroxychloroquine 200 mg oral tablet 1, tablet, By Mouth, 2 times a day, # 60 tablet, Refills 5, Tot. Refills 5, 04/15/23 13:55:00 EST, Route to Pharmacy Electronically, [facility] #[id number], 170, cm, 01/31/23 10:06:00 EDT, Height, 94.4, kg, 11/08/22 14:35:00 EDT, Dry Weight Start Date: 04/15/23 Status: Ordered hydrOXYzine hydrochloride 25 mg oral tablet See Instructions, TAKE 1 TABLET BY MOUTH TWICE DAILY NEEDED FOR ANXIETY, # 60 tablet, 5 Refills,Maintenance, 09/18/23 10:13:00 EDT, [facility] #[id number], 170, cm, 07/23/23 16:32:00 EDT, Height, 100, [...] 1 Refills, Maintenance, 11/20/23 16:42:00 EDT, Tablet, [facility] #[id number], IF NOT COVERED, please use [employer] coupon and allow pt to pay OOP; $9.09; BIN [id number]; [facility]; Group [address]; Membe... Start Date: 11/20/23 Status: Ordered risperiDONE 1 mg oral tablet 1 mg, 1, tablet, By Mouth, Daily, # 90 tablet, Refills 1, Tot. Refills 1, Maintenance, 08/11/23 9:29:00 EDT, Route to Pharmacy Electronically, [facility] #[id number], 170, cm, 07/23/23 16:32:00 EDT, Height, 100, kg, 04/20/23 21:48:00 EST, Dry Weight Start Date: 08/11/23 Stop Date: 02/07/24 Status: Ordered Suboxone 8 mg-2 mg Sublingual Film 1 film, Sublingual, 3 times a day, for 14 days, dissolve under the tongue, # 42 film, 0 Refills, Hard Stop 11/25/23 9:01:00 EDT, 11/11/23 9:01:00 EDT, [facility] #[id number], Partial fill upon patient request if the prescription is for a schedule... Start Date: 11/11/23 Stop Date: 11/25/23 Status: Ordered tiZANidine 2 mg oral tablet 2 mg, 1, tablet, By Mouth, 3 times a day, # 84 tablet, Refills 1, Tot. Refills 1, Maintenance, 09/08/23 18:10:00 EDT, Route to Pharmacy Electronically, [facility] #[id number], Partial fill upon patient request if the prescription is for a schedul... Start Date: 09/08/23 Stop Date: 11/03/23 Status: Ordered Trelegy Ellipta 200 mcg-62.5 mcg-25 mcg/inh inhalation powder 1 puffs, Inhalation, Daily, at the same time every day, # 3 each, 3 Refills, Maintenance, 07/23/23 16:56:00 EDT, Powder, [facility] #[id number], Partial fill upon patient request if the prescription is for a schedule II opioid drug., 1 puffs Inha... Start Date: 07/23/23 Stop Date: 07/17/24 Status: Ordered Ultram 50 mg oral tablet 1 tablet = 50 mg, By Mouth, Every 12 hours, PRN for pain, # 20 tablet, 0 Refills, Maintenance, 10/14/23 9:32:00 EDT, Tablet, [facility] #[id number], Partial fill upon patient request if the prescription is for a schedule II opioid drug., 170, cm,... Start Date: 10/14/23 Status: Ordered Ventolin HFA 108 mcg/inh inhalation aerosol with adapter 2 puffs, Inhalation, 4 times a day, PRN for wheezing, # 1 each, 3 Refills, Maintenance, 05/28/23 12:34:00 EST, Aerosol, [facility] #09199, Partial fill upon patient request if the prescription is for a schedule II opioid drug., 170, cm, 1... Start Date: 05/28/23 Status: Ordered Voltaren Arthritis Pain 1% topical gel = 4 Gm, Topically, 4 times a day, # 480 Gm, 4 Refills, Maintenance, 07/24/23 14:31:00 EDT, [facility] #[id number], Partial fill upon patient request if the prescription is for a schedule II opioid drug., 4 Gm Topically 4 times a day, 170, cm, ... Start Date: 07/24/23 Status: Ordered [facility] PAIN RELIEVING LIDOCAINE PATCH 4% [facility] PAIN RELIEVING LIDOCAINE PATCH 4%, See Instructions, [...] Personnel Name: Roxi BROWN, Compa Hall Position: [facility] PCO Associate Professional Member Role: PCP Address: Address: [address] [facility] [place] [address]- [place] Name: Blaire Iglesias [place] Position: [facility] Office Staff Member Role: Primary Care Nurse Name: Rhiannon Li [place] Position: [facility] Office Staff Member Role: Primary Care Nurse Name: Viral Jolly MD Position: [facility] Physician - Behavioral Health Member Role: Lifetime Consulting Physician Address: Address: [address] [place] [address]- Care Team Related Persons Name: MAIN MOSER Address: home [address] [place] [address] Name: JORGE GARCIA Address: home [address] [place] [address] Name: LOREE SIFUENTES
--- OUTSIDE RECORDS SUMMARY | 2024-03-03 23:42 | XMS_ITS | Continuity of Care Document ---
Author Organization [facility] Address [address] [place] [address]- Care Team Providers Care Impregnator And Drier Name Role Phone Angela BROWN, Robyn Martinez Primary Care Physician Encounter [facility] Date(s): 05/27/19 - 06/27/19 [facility] [address] [place] [address] [facility] Attending Physician: Milton Mcnulty MD Admitting Physician: Milton Mcnulty MD Allergies, Adverse Reactions, [...]
--- OUTSIDE RECORDS SUMMARY | 2024-03-03 23:42 | XMS_ITS | Continuity of Care Document ---
Author Organization [facility] Address [address] [place] [address]- Care Team Providers Care Water Mangle Tender Name Role Phone Robyn Miller NP Primary Care Physician Encounter [facility] Date(s): 08/30/20 - 09/06/20 [facility] [address] [place] [address]- Attending Physician: Philip Aguilar MD Admitting Physician: Philip Aguilar MD Referring Physician: Robyn Miller NP Allergies, [...] Unknown, 11 Refills, Maintenance, 06/19/20 16:07:00 EST, [facility], 20, INHALE 2 PUFFS BY MOUTH EVERY 4 TO 6 HOURS NEEDED FOR WHEEZE FOR SHORTNESS... Start Date: 06/19/20 Status: Ordered Suboxone 8 mg-2 mg sublingual film 2.5 FILMS, Sublingual, Daily, [id number], # 75 film, 1 Refills, Maintenance, 04/26/20 16:38:00 EST, [facility] #[id number], 2.5 FILMS Sublingual Daily,Instr:[id number], 163, cm, 04/26/20 14:26:00 EST, Height, 105, [...] Response Smoking Status Current every day antony goemz entered on: 09/29/14 Sex
--- OUTSIDE RECORDS SUMMARY | 2024-03-03 23:42 | XMS_ITS | Continuity of Care Document ---
Author Organization [facility] Address [address] [place] [address]- Care Team Providers Care Director Of Product Development Name Role Phone Gen BROWN, Claribel Primary Care Physician Encounter [facility] Date(s): 11/12/21 - 12/12/21 [facility] [address] [place] [address]- Allergies, Adverse Reactions, Alerts No Known Allergies [...]
--- OUTSIDE RECORDS SUMMARY | 2024-03-03 23:42 | XMS_ITS | Continuity of Care Document ---
Author Organization [facility] Address [address] [place] [address]- Care Team Providers Care Cosmetics Machine Operator Name Role Phone Gen BROWN, Claribel Primary Care Physician [phone] Encounter [facility] Date(s): 08/29/21 - 10/18/[address] [address]- Attending Physician: Claribel Blevins NP Admitting Physician: Claribel Blevins NP Referring Physician: Claribel Blevins NP Allergies, Adverse Reactions, [...] OR WHEEZING, # 18 each, 6 Refills, [id number], 20, INHALE 2 PUFFS BY MOUTH EVERY [...]
--- OUTSIDE RECORDS SUMMARY | 2024-03-03 23:42 | XMS_ITS | Continuity of Care Document ---
Author Organization [facility] ter Address [address] [place] [address]- Care Team Providers Care Willow Specialists Name Role Phone Roxi BROWN, Compa Hall Primary Care Physician Encounter [facility] [id number] Date(s): 12/05/22 - 12/06/[address] [address]- Encounter Diagnosis Alcohol withdrawal(Final) - 12/06/22 Discharge Disposition: A-D/C Home Attending Physician: Zaki Majano MD Admitting Physician: Zaki Majano MD Referring Physician: Not on Staff, Referring [...] 2 Refills, Maintenance, 12/06/22 14:34:00EDT, CR Tablet, [facility] #[id number], Partial fill upon patient request if the [...] 11 Refills, Maintenance, 08/22/20 13:04:00 EDT, Solution, [facility]/pharmacy #[id number], 3 mL Inhalation 4 times a day,PRN:Whe... Start Date: 08/22/20 Status: Ordered Breo Ellipta 100 mcg-25 mcg/inh inhalation powder 1 puffs, Inhalation, Daily, [employer]., # 1 each, 3 Refills, 11/21/22 10:33:00 EDT, [facility] #[id number], 1 puffs Inhalation Daily,Instr:RIN[employer] M[employer]WAR[employer]., 170, cm, 11/19/2313:19:00 EDT, Height, 94.4, kg, 11/08/22 14:35:00 E... Start Date: 11/21/22 Status: Ordered cloNIDine 0.1 mg oral tablet 0.05 mg, 0.5, tablet, By Mouth, 4 times a day, PRN, # 60 tablet, Refills 1, Tot. Refills 1, Maintenance, anxiety, panic, withdrawal symptoms, 10/25/22 15:45:00 EDT, Route to Pharmacy Electronically, [facility] #[id number], Partial fill upon patie... Start Date: 10/25/22 Status: Ordered diclofenac 1% topical gel = 2 Gm, Topically, 2 times a day, # 100 Gm, 2 Refills, 11/29/22 12:21:00 EDT, [facility] #[id number], 25, 2 Gm Topically 2 times a [...] 04/03/23 9:00:00 EST, 10/25/22 15:39:00 EDT, Tablet, [facility] #[id number], Partial fill upon patient... Start Date: 6/23/23 Stop Date: 04/03/23 Status: Ordered duloxetine 30 mg oral enteric coated capsule 1 capsule = 30 mg, By Mouth, 2 times a day, do not crush or chew, # 180 capsule, 3 Refills, Maintenance, 02/19/22 14:28:00 EDT, [facility] #[id number], 170, cm, 03/07/21 11:09:00 EDT, Height, 107.3, kg, 06/22/20 13:29:00 EST, Dry Weight Start Date: 02/19/22 Status: Ordered famotidine 20 mg oral tablet 20 mg, 1, tablet, By Mouth, Daily, OV 5-6-20, # 30 tablet, Refills 5, Tot. Refills 5, Maintenance, 08/21/20 12:25:00 EDT, Route to Pharmacy Electronically, [facility]/pharmacy #[id number], 170, cm, 08/16/20 15:32:00 EDT, Height, 107.3, kg, 06/22/20 13:29:00 EST, D... Start Date: 08/21/20 Status: Ordered gabapentin 300 mg oral capsule 300 mg, 1, capsule, By Mouth, 3 times a day, # 270 capsule, Refills 1, Tot. Refills 1, Maintenance,08/21/21 14:14:00 EDT, Route to Pharmacy Electronically, [facility] #[id number], Partial fill upon patient request, 170, cm, 03/07/21 11:09:00 EDT... Start Date: 08/21/21 Status: Ordered gabapentin 300 mg oral capsule 300 mg, 1, capsule, By Mouth, 3 times a day, # 270 capsule, Refills 3, Tot. Refills 3, Maintenance,02/19/22 14:28:00 EDT, Route to Pharmacy Electronically, [facility] #[id number], Partial fill upon patient request, 170, cm, 03/07/21 11:09:00 EDT... Start Date: 02/19/22 Status: Ordered gabapentin 300 mg oral capsule 300 mg, Capsule, By Mouth, 12/06/22 9:00:00 EDT Start Date: 12/06/22 Stop Date: 12/06/22 Status: Completed gabapentin 300 mg oral capsule 300 mg, Capsule, By Mouth, 12/06/22 15:00:00 EDT Start Date: 12/06/22 Stop Date: 12/06/22 Status: Completed hydroxychloroquine 200 mg oral tablet 1, tablet, By Mouth, 2 times a day, # 60 tablet, Refills 5, Tot. Refills 5, 05/16/22 16:23:00 EST, Route to Pharmacy Electronically, [facility] #[id number], 175, cm, 05/01/22 15:32:00 EST, Height, 75, [...] 18 each, 3 Refills, 11/22/22 15:59:00 EDT, [facility] #[id number], 20, 2 puffs Inhalation Every 4 to6 hours,PRN: NEEDED FOR SHORTNESS OF BREATH OR WH... Start Date: 11/22/22 Status: Ordered ProAir HFA 90 mcg/inh inhalation aerosol 2 puffs, Inhalation, Every 4 to 6 hours, PRN NEEDED FOR SHORTNESS OF BREATH OR WHEEZING, # 18 Gm, 5 Refills, 03/20/22 16:08:00 EST, [facility] #[id number], 2 puffs Inhalation Every 4 to 6 hours,PRN: NEEDED FOR SHORTNESS OF BREATH OR WHEEZING... Start Date: 03/20/22 Status: Ordered risperiDONE 1 mg oral tablet 1 mg, 1, tablet, By Mouth, Daily, # 90 tablet, Refills 3, Tot. Refills 3, Maintenance, 02/19/22 14:27:00 EDT, Route to Pharmacy Electronically, [facility] #[id number], 170, cm, 03/07/21 11:09:00EDT, Height, 107.3, kg, [...] film, 1 Refills, Maintenance, 11/14/22 10:32:00 EDT, [facility] #[id number], Partial fill upon patient request if the prescription is for a schedule II opioid drug. ALVINA [id number];... Start Date: 11/14/22 Stop Date: 01/13/23 Status: Ordered Vitamin D3 1000 intl units oral tablet 1 tablet = 1,000 International_Units, By Mouth, Daily, # 30 tablet, 11 Refills, Maintenance, 10/04/19 11:54:00 EDT, Tablet, [facility]/pharmacy #[id number], 163, cm, 10/04/19 11:27:00 EDT, [...] Range]: 1 2 3 Height 170 cm (12/06/22 12:43 AM) 170 cm (12/05/22 11:11 PM) Weight 95.8 kg (12/06/22 12:43 AM) 95.8 kg (12/05/22 11:11 PM) Oxygen Saturation [94-100 %] 100 % (12/06/22 4:00 PM) 97 % (12/06/22 5:06 AM) 94 % (12/06/22 4:37 AM) Pulse Rate [55-90 bpm] 86 bpm (12/06/22 4:00 PM) 90 bpm (12/06/22 9:29 AM) 82 bpm (12/06/22 4:37 AM) Body Mass Index [18.5-24.99 kg/m2] 33.15 kg/m2 *>HHI* (12/05/22 11:11 PM) Blood Pressure [90-138/55-84 mm Hg] 94/60mm Hg (12/06/22 4:00 PM) 90/62mm Hg (12/06/22 9:29 AM) 103/63mm Hg (12/06/22 4:37 AM) Respiratory Rate [16-30 br/min] 18 br/min (12/06/22 4:00 PM) 18 br/min (12/06/22 2:44 PM) 18 br/min (12/06/22 9:29 AM) Temperature [96.8-100.4 DegF] 97.0 DegF (12/06/22 4:00 PM) 98.6 DegF (12/05/22 11:11 PM) Mode of Delivery (Oxygen) Room air (12/06/22 4:00 PM) Room air (12/06/22 4:37 AM) Room air (12/05/22 11:11 PM) Blood pressure sites Arm, right (12/06/22 4:37 AM) Arm, left (12/05/22 11:11 PM) Temperature Route Oral (12/06/22 4:00 PM) Oral (12/05/22 11:11 PM) Social History Social History Type Response Smoking Status Current every day antony gomez entered on: 09/29/14 Sex Patient Care team information Care Team Personnel Name: Roxi BROWN, Compa Hall Position: [facility] PCO Associate Professional Member Role: PCP Address: Address: [address] [place] [address]- Name: Blaire Iglesias [place] Position: [facility] RN Member Role: Primary Care Nurse Name: Rhiannon Gibson Position: [facility] RN Member Role: Primary Care Nurse Name: Viral Jolly MD Position: [facility] Physician - Behavioral Health Member Role: Lifetime Consulting Physician Address: Address: [address] [place] [address]- Name: *[facility], ED Attending Position: [facility] ED Attendings Patient Name: Zaki Majano MD Position: [facility] ED Medicine MD Member Role: Admitting Physician Address: Address: [address] [place] [address] [place] [address]- Name: Anuradha Woo Position: [facility] ED TA [facility] Member Role: Patient Care Provider Name: Adolfo Terrazas RN Position: [facility] ED RN W/OE and Tasks Member Role: Patient Care Provider Care Team Related Persons Name: MAIN MOSER Address: [address] [place] [address] Name: JORGE GARCIA Address: [address] [place] [address] Name: LOREE SIFUENTES
--- OUTSIDE RECORDS SUMMARY | 2024-03-03 23:42 | XMS_ITS | Continuity of Care Document ---
Author Organization [facility] Address [address] [place] [address]- Care Team Providers Care Stock Clerk Name Role Phone Fine RESPIRATORY TECH, Compa Hall Primary Care Physician Encounter [facility] Date(s): 08/06/23 - 09/05/23 [facility] [address] [place] [address]- Attending Physician: Maddie Jones Admitting Physician: AdmtrMaddie [...] 11 Refills, Maintenance, 03/25/23 12:53:00 EST, Solution, [facility] #[id number], 3 mL Inhalation 4 times a da... Start Date: 03/25/23 Status: Ordered Breo Ellipta 100 mcg-25 mcg/inh inhalation powder 1 puffs, Inhalation, Daily, [employer]WARDS., # 1 each, 3 Refills, 11/21/22 10:33:00 EDT, [facility] #[id number], 1 puffs Inhalation Daily,Instr:RINSE MOUTH AFTERWARDS., 170, cm, 11/19/2313:19:00 EDT, Height, 94.4, kg, 11/08/22 14:35:00 E... Start Date: 11/21/22 Status: Ordered cloNIDine 0.1 mg oral tablet 0.05 mg, 0.5, tablet, By Mouth, 4 times a day, PRN, stay hydrated, # 120 tablet, Refills 0, Tot. Refills 0, Maintenance, anxiety, panic, withdrawal symptoms, 08/11/23 9:29:00 EDT, Route to Pharmacy Electronically, [facility] #[id number], Partial... Start Date: 08/11/23 Stop Date: 09/10/23 Status: Ordered duloxetine 30 mg oral enteric coated capsule 1 capsule = 30 mg, By Mouth, 2 times a day, do not crush or chew, # 180 capsule, 3 Refills, Maintenance, 12/20/22 17:50:00 EDT, [facility] #[id number], 170, cm, 12/06/22 0:43:00 EDT, Height, 94.4, kg, 11/08/22 14:35:00 EDT, Dry Weight Start Date: 12/20/22 Status: Ordered gabapentin 300 mg oral capsule 300 mg, 1, capsule, By Mouth, 3 times a day, # 270 capsule, Refills 1, Tot. Refills 1, Maintenance,08/11/23 9:29:00 EDT, Route to Pharmacy Electronically, [facility] #[id number], Partial fill upon patient request, 170, cm, 07/23/23 16:32:00 EDT,... Start Date: 08/11/23 Status: Ordered hydroxychloroquine 200 mg oral tablet 1, tablet, By Mouth, 2 times a day, # 60 tablet, Refills 5, Tot. Refills 5, 04/15/23 13:55:00 EST, Route to Pharmacy Electronically, [facility] #[id number], 170, cm, 01/31/23 10:06:00 EDT, Height, 94.4, kg, 11/08/22 14:35:00 EDT, Dry Weight Start Date: 04/15/23 Status: Ordered hydrOXYzine hydrochloride 25 mg oral tablet 1 tablet = 25 mg, By Mouth, 2 times a day, PRN for anxiety, for 30 days, # 60 tablet, 0 Refills, Acute 05/08/24 9:30:00 EDT, 08/11/23 9:30:00 EDT, Tablet, [facility] #[id number], Partial fill upon patient request if the [...] 1 Refills, Maintenance, 08/11/23 9:31:00 EDT, Tablet, [facility] #[id number], IF NOT COVERED, please use goodCR2x coupon and allow pt to payOOP; $9.09; ASHLEY [id number]; [facility]; Group [id number]; Member... Start Date: 08/11/23 Status: Ordered risperiDONE 1 mg oral tablet 1 mg, 1, tablet, By Mouth, Daily, # 90 tablet, Refills 1, Tot. Refills 1, Maintenance, 08/11/23 9:29:00 EDT, Route to Pharmacy Electronically, [facility] #[id number], 170, cm, 07/23/23 16:32:00 EDT, Height, 100, kg, 04/20/23 21:48:00 EST, Dry Weight Start Date: 08/11/23 Stop Date: 02/07/24 Status: Ordered Suboxone 8 mg-2 mg Sublingual Film 1 film, Sublingual, 3 times a day, dissolve under the tongue, # 90 film, 1 Refills, Maintenance, 07/13/23 11:49:00 EDT, [facility] #[id number], Partial fill upon patient request if the prescription is for a schedule II opioid drug. ALVINA [id number];... Start Date: 07/13/23 Stop Date: 09/11/23 Status: Ordered tiZANidine 2 mg oral tablet 2 mg, 1, tablet, By Mouth, 3 times a day, # 84 tablet, Refills 1, Tot. Refills 1, Maintenance, 07/01/23 16:53:00 EST, Route to Pharmacy Electronically, [facility] #[id number], Partial fill upon patient request if the prescription is for a schedul... Start Date: 07/01/23 Stop Date: 08/26/23 Status: Ordered Trelegy Ellipta 200 mcg-62.5 mcg-25 mcg/inh inhalation powder 1 puffs, Inhalation, Daily, at the same time every day, # 3 each, 3 Refills, Maintenance, 07/23/23 16:56:00 EDT, Powder, [facility] #[id number], Partial fill upon patient request if the prescription is for a schedule II opioid drug., 1 puffs Inha... Start Date: 07/23/23 Stop Date: 07/17/24 Status: Ordered Ventolin HFA 108 mcg/inh inhalation aerosol with adapter 2 puffs, Inhalation, 4 times a day, PRN for wheezing, # 1 each, 3 Refills, Maintenance, 05/28/23 12:34:00 EST, Aerosol, [facility] #[id number], Partial fill upon patient request if the prescription is for a schedule II opioid drug., 170, cm, 04/04... Start Date: 05/28/23 Status: Ordered Voltaren Arthritis Pain 1% topical gel = 4 Gm, Topically, 4 times a day, # 480 Gm, 4 Refills, Maintenance, 07/24/23 14:31:00 EDT, [facility] #[id number], Partial fill upon patient request if the [...] 04/20/23 21:48:00 EST, Height, 10... Start Date: 12/20/23 Status: Ordered Problem List Condition Confirmation Course [...] Team Personnel Name: Compa Diane NP Position: [facility] PCO Associate Professional Member Role: PCP Address: Address: [address] [facility] [place] [address]- Name: Blaire Iglesias [place] Position: [facility] RN Member Role: Primary Care Nurse Name: Rhiannon Gibson Position: [facility] RN Member Role: Primary Care Nurse Name: Viral Jolly MD Position: [facility] Physician - Behavioral Health Member Role: Lifetime Consulting Physician Address: Address: [address] [place] [address]- Care Team Related Persons Name: MAIN MOSER Address: home [address] [place] [address] Name: JORGE GARCIA Address: home [address] [place] [address] Name: LOREE SIFUENTES
--- OUTSIDE RECORDS SUMMARY | 2024-03-03 23:42 | XMS_ITS | Continuity of Care Document ---
Author Organization [facility] Address [address] [place] [address]- Care Team Providers Care Paper Bag Machine Operator Name Role Phone Angela BROWN, Robyn Martinez Primary Care Physician Encounter [facility] Date(s): 06/23/20 - 07/23/20 [facility] [address] [place] [address]- Allergies, Adverse Reactions, Alerts Substance Reaction Severity [...] Refills, Maintenance, 06/19/20 16:07:00 EST, [id number], 20, INHALE 2 PUFFS BY MOUTH EVERY 4 TO 6 HOURS NEEDED FOR WHEEZE FOR SHORTNESS... Start Date: 06/19/20 Status: Ordered Suboxone 8 mg-2 mg sublingual film 2.5 FILMS, Sublingual, Daily, [id number], # 75 film, 1 Refills, Maintenance, 04/26/20 16:38:00 EST, [facility] #[id number], 2.5 FILMS Sublingual Daily,Instr:[id number], 163, cm, 04/26/20 14:26:00 EST, Height, 105, [...]
--- OUTSIDE RECORDS SUMMARY | 2024-03-03 23:43 | XMS_ITS | Continuity of Care Document ---
Author Organization [facility] Address [address] [place] [address]- Care Team Providers Care Recreation Establishment Manager Name Role Phone Roxi COCOA BUTTER FILTER OPERATOR, Compa Hall Primary Care Physician Encounter [facility] Date(s): 04/21/23 - 05/21/23 [facility] [address] [place] [address]- Allergies, Adverse Reactions, Alerts No Known Allergies [...] 11 Refills, Maintenance, 03/25/23 12:53:00 EST, Solution, [facility] #[id number], 3 mL Inhalation 4 times a da... Start Date: 03/25/23 Status: Ordered Breo Ellipta 100 mcg-25 mcg/inh inhalation powder 1 puffs, Inhalation, Daily, [employer]., # 1 each, 3 Refills, 11/21/22 10:33:00 EDT, [facility] #[id number], 1 puffs Inhalation Daily,Instr:R[employer] AFTERWAR[employer]., 170, cm, 11/19/2313:19:00 EDT, Height, 94.4, kg, 11/08/22 14:35:00 E... Start Date: 11/21/22 Status: Ordered cloNIDine 0.1 mg oral tablet 0.05 mg, 0.5, tablet, By Mouth, 4 times a day, PRN, stay hydrated, # 60 tablet, Refills 3, Tot. Refills 3, Maintenance, anxiety, panic, withdrawal symptoms, 03/25/23 12:52:00 EST, Route to Pharmacy Electronically, [facility] #[id number], Partial... Start Date: 03/25/23 Status: Ordered duloxetine 30 mg oral enteric coated capsule 1 capsule = 30 mg, By Mouth, 2 times a day, do not crush or chew, # 180 capsule, 3 Refills, Maintenance, 12/20/22 17:50:00 EDT, [facility] #[id number], 170, cm, 12/06/22 0:43:00 EDT, Height, 94.4, kg, 11/08/22 14:35:00 EDT, Dry Weight Start Date: 12/20/22 Status: Ordered gabapentin 300 mg oral capsule 300 mg, 1, capsule, By Mouth, 3 times a day, # 270 capsule, Refills 1, Tot. Refills 1, Maintenance,02/12/23 10:36:00 EDT, Route to Pharmacy Electronically, [facility] #[id number], Partial fill upon patient request, 170, cm, 01/31/23 10:06:00 EDT... Start Date: 02/12/23 Status: Ordered hydroxychloroquine 200 mg oral tablet 1, tablet, By Mouth, 2 times a day, # 60 tablet, Refills 5, Tot. Refills 5, 04/15/23 13:55:00 EST, Route to Pharmacy Electronically, [facility] #[id number], 170, cm, 01/31/23 10:06:00 EDT, Height, 94.4, kg, 11/08/22 14:35:00 EDT, Dry Weight Start Date: 04/15/23 Status: Ordered hydrOXYzine hydrochloride 25 mg oral tablet 1 tablet = 25 mg, By Mouth, Daily, PRN anxiety, for 30 days, # 30 tablet, 3 Refills, Acute 07/23/2411:53:00 EDT, 03/25/23 12:53:00 EST, Tablet, [facility] #[id number], Partial fill upon patientrequest if the prescription is for a schedule II op... Start Date: 03/25/23 Stop Date: 07/23/23 Status: Ordered risperiDONE 1 mg oral tablet 1 mg, 1, tablet, By Mouth, Daily, # 90 tablet, Refills 1, Tot. Refills 1, Maintenance, 02/12/23 10:37:00 EDT, Route to Pharmacy Electronically, [facility] #[id number], 170, cm, 01/31/23 10:06:00EDT, Height, 94.4, kg, 11/08/22 14:35:00 EDT, Dry W... Start Date: 02/12/23 Stop Date: 08/11/23 Status: Ordered Suboxone 8 mg-2 mg Sublingual Film 1 film, Sublingual, 3 times a day, dissolve under the tongue, # 90 film, 1 Refills, Maintenance, 05/14/23 11:49:00 EST, [facility] #[id number], Partial fill upon patient request if the prescription is for a schedule II opioid drug. ALVINA [id number];... Start Date: 05/14/23 Stop Date: 07/13/23 Status: Ordered tiZANidine 2 mg oral tablet 2 mg, 1, tablet, By Mouth, 3 times a day, # 21 tablet, Refills 0, Tot. Refills 0, Maintenance, 04/22/23 9:05:00 EST, Route to Pharmacy Electronically, [facility] #[id number], Partial fill upon patient request if the prescription is for a schedule... Start Date: 04/22/23 Stop Date: 04/29/23 Status: Ordered Ventolin HFA 108 mcg/inh inhalation aerosol with adapter 2 puffs, Inhalation, 4 times a day, PRN for wheezing, # 1 each, 3 Refills, Maintenance, 05/13/23 11:21:00 EST, Aerosol, [facility] #[id number], Partial fill upon patient request if the prescription is for a schedule II opioid drug., 170, cm, 04/04... Start Date: 05/13/23 Status: Ordered Voltaren Arthritis Pain 1% topical gel = 4 Gm, Topically, 4 times a day, # 480 Gm, 4 Refills, Maintenance, 04/10/23 11:37:00 EST, [facility] #[id number], Partial fill upon patient request if the prescription is for a schedule II opioid drug., 4 Gm Topically 4 times a day, 170, cm, ... Start Date: 04/10/23 Status: Ordered [facility] PAIN RELIEVING LIDOCAINE PATCH 4% [facility] PAIN [...] Address: [address] [facility] [place] [address]- [place] Name: Blaire Iglesias [place] Position: [facility] RN Member Role: Primary Care Nurse Name: Rhiannon Gibson Position: [facility] RN Member Role: Primary Care Nurse Name: Viral Jolly MD Position: [facility] Physician - Behavioral Health Member Role: Lifetime Consulting Physician Address: Address: [address] [place] [address]- Care Team Related Persons Name: MAIN MOSER Address: home [address] [place] [address] Name: JORGE GARCIA Address: home [address] [place] [address] Name: LOREE SIFUENTES
--- OUTSIDE RECORDS SUMMARY | 2024-03-03 23:43 | XMS_ITS | Continuity of Care Document ---
Author Organization [facility] Address [address] [place] [address]- Care Team Providers Care Aviculturist Name Role Phone Angela BROWN, Robyn Martinez Primary Care Physician Encounter [facility] Date(s): 08/09/20 - 09/08/20 [facility] [address] [place] [address]- Attending Physician: AdmtrMaddie Admitting Physician: Admtr, [id number] Referring Physician: Admtr, [...] Unknown, 11 Refills, Maintenance, 06/19/20 16:07:00 EST, [facility] 09237, 20, INHALE 2 PUFFS BY MOUTH EVERY 4 TO 6 HOURS NEEDED FOR WHEEZE FOR SHORTNESS... Start Date: 06/19/20 Status: Ordered Suboxone 8 mg-2 mg sublingual film 2.5 FILMS, Sublingual, Daily, [id number], # 75 film, 1 Refills, Maintenance, 04/26/20 16:38:00 EST, [facility] #[id number], 2.5 FILMS Sublingual Daily,Instr:[id number], 163, cm, 04/26/20 14:26:00 EST, Height, 105, [...]
--- OUTSIDE RECORDS SUMMARY | 2024-03-03 23:43 | XMS_ITS | Continuity of Care Document ---
Author Organization [facility] Address [address] [place] [address]- Care Team Providers Care Market Gardener Name Role Phone Fine WASHHOUSE HAND, Compa Hall Primary Care Physician Encounter [facility] Date(s): 11/28/22 - 12/28/22 [facility] [address] [place] [address]- Allergies, Adverse Reactions, Alerts No Known Allergies Immunizations Given and Recorded Vaccine Date Status Refusal Reason SARS-CoV-2 (COVID-19) mRNA BNT-162b2 vac 09/08/20 Recorded SARS-CoV-2 (COVID-19) mRNA BNT-162g8 vac 08/18/20 Recorded pneumococcal 23-valent vaccine 10/21/16 Given tetanus-diphtheria toxoids (Td) 05/05/03 Recorded Medications albuterol-ipratropium 3 mg-0.5 mg/3 ml inhalation solution 3 mL, Inhalation, 4 times a day, PRN Wheezing/Shortness of Breath, DX: [id number] do not use ventolineand Nebs at the same time, # 90 mL, 11 Refills, Maintenance, 08/22/20 13:04:00 EDT, Solution, [facility]/pharmacy #[id number], 3 mL Inhalation 4 times a day,PRN:Whe... Start Date: 08/22/20 Status: Ordered Breo Ellipta 100 mcg-25 mcg/inh inhalation powder 1 puffs, Inhalation, Daily, [employer]WARDS., # 1 each, 3 Refills, 11/21/22 10:33:00 EDT, [facility] #[id number], 1 puffs Inhalation Daily,Instr:RINSE MOUTH AFTERWARDS., 170, cm, 11/19/2313:19:00 EDT, Height, 94.4, kg, 11/08/22 14:35:00 E... Start Date: 11/21/22 Status: Ordered cloNIDine 0.1 mg oral tablet 0.05 mg, 0.5, tablet, By Mouth, 4 times a day, PRN, # 60 tablet, Refills 1, Tot. Refills 1, Maintenance, anxiety, panic, withdrawal symptoms, 12/20/22 17:50:00 EDT, Route to Pharmacy Electronically, [facility] #[id number], Partial fill upon patie... Start Date: 12/20/22 Status: Ordered diclofenac 1% topical gel = 2 Gm, Topically, 2 times a day, # 100 Gm, 2 Refills, 11/29/22 12:21:00 EDT, [facility] #[id number], 25, 2 Gm Topically 2 times a day, 170, cm, 11/19/22 14:19:00 EDT, Height, 94.4, kg, 11/08/2313:35:00 EDT, Dry Weight Start Date: 11/29/22 Status: Ordered duloxetine 30 mg oral enteric coated capsule 1 capsule = 30 mg, By Mouth, 2 times a day, do not crush or chew, # 180 capsule, 3 Refills, Maintenance, 12/20/22 17:50:00 EDT, [facility] #[id number], 170, cm, 12/06/22 0:43:00 EDT, Height, 94.4, kg, 11/08/22 14:35:00 EDT, Dry Weight Start Date: 12/20/22 Status: Ordered famotidine 20 mg oral tablet 20 mg, 1, tablet, By Mouth, Daily, OV 5-6-20, # 30 tablet, Refills 5, Tot. Refills 5, Maintenance, 08/21/20 12:25:00 EDT, Route to Pharmacy Electronically, [facility]/pharmacy #[id number], 170, cm, 08/16/20 15:32:00 EDT, Height, 107.3, kg, 06/22/20 13:29:00 EST, D... Start Date: 08/21/20 Status: Ordered gabapentin 300 mg oral capsule 300 mg, 1, capsule, By Mouth, 3 times a day, # 270 capsule, Refills 1, Tot. Refills 1, Maintenance,12/20/22 17:52:00 EDT, Route to Pharmacy Electronically, [facility] #[id number], Partial fill upon patient request, 170, cm, 12/06/22 0:43:00 EDT,... Start Date: 12/20/22 Status: Ordered gabapentin 300 mg oral capsule 300 mg, 1, capsule, By Mouth, 3 times a day, # 270 capsule, Refills 3, Tot. Refills 3, Maintenance,02/19/22 14:28:00 EDT, Route to Pharmacy Electronically, [facility] #[id number], Partial fill upon patient request, 170, cm, 03/07/21 11:09:00 EDT... Start Date: 02/19/22 Status: Ordered hydroxychloroquine 200 mg oral tablet 1, tablet, By Mouth, 2 times a day, # 60 tablet, Refills 5, Tot. Refills 5, 05/16/22 16:23:00 EST, Route to Pharmacy Electronically, [facility] #[id number], 175, cm, 05/01/22 15:32:00 EST, Height, 75, [...] 1 Refills, Maintenance, 12/23/22 15:41:00 EDT, Tablet, [facility] #[id number], IF NOT COVERED, please use [employer] coupon and allow pt to pay OOP; [...] 18 each, 3 Refills, 11/22/22 15:59:00 EDT, [facility] #[id number], 20, 2 puffs Inhalation Every 4 to6 hours,PRN: NEEDED FOR SHORTNESS OF BREATH OR WH... Start Date: 11/22/22 Status: Ordered ProAir HFA 90 mcg/inh inhalation aerosol 2 puffs, Inhalation, Every 4 to 6 hours, PRN NEEDED FOR SHORTNESS OF BREATH OR WHEEZING, # 18 Gm, 5 Refills, 03/20/22 16:08:00 EST, [facility] #[id number], 2 puffs Inhalation Every 4 to 6 hours,PRN: NEEDED FOR SHORTNESS OF BREATH OR WHEEZING... Start Date: 03/20/22 Status: Ordered risperiDONE 1 mg oral tablet 1 mg, 1, tablet, By Mouth, Daily, # 90 tablet, Refills 3, Tot. Refills 3, Maintenance, 12/20/22 17:51:00 EDT, Route to Pharmacy Electronically, [facility] #[id number], 170, cm, 12/06/22 0:43:00 EDT, Height, 94.4, [...] film, 1 Refills, Maintenance, 11/14/22 10:32:00 EDT, [facility] #66156, Partial fill upon patient request if the prescription is for a schedule II opioid drug. ALVINA [id number];... Start Date: 11/14/22 Stop Date: 01/13/23 Status: [...] Team Personnel Name: Compa Diane NP Position: [facility] PCO Associate Professional Member Role: PCP Address: Address: [address] [place] [address]- [place] Name: Blaire Iglesias [place] Position: [facility] RN Member Role: Primary Care Nurse Name: Rhiannon Gibson Position: [facility] RN Member Role: Primary Care Nurse Name: Viral Jolly MD Position: [facility] Physician - Behavioral Health Member Role: Lifetime Consulting Physician Address: Address: [address] [place] [address]- Care Team Related Persons Name: MAIN MOSER Address: home [address] [place] [address] Name: JORGE GARCIA Address: home [address] [place] [address] Name: LOREE SIFUENTES
--- OUTSIDE RECORDS SUMMARY | 2024-03-03 23:43 | XMS_ITS | Continuity of Care Document ---
Author Organization [facility] Address [address] [place] [address]- Care Team Providers Care Climbing Guide Name Role Phone Angela BROWN, Robyn Martinez Primary Care Physician Encounter [facility] Date(s): 08/09/20 - 09/08/20 [facility] [address] [place] [address]- Allergies, Adverse Reactions, Alerts Substance Reaction Severity [...] Unknown, 11 Refills, Maintenance, 06/19/20 16:07:00 EST, [facility] [id number], 20, INHALE 2 PUFFS BY MOUTH EVERY 4 TO 6 HOURS NEEDED FOR WHEEZE FOR SHORTNESS... Start Date: 06/19/20 Status: Ordered Suboxone 8 mg-2 mg sublingual film 2.5 FILMS, Sublingual, Daily, [id number], # 75 film, 1 Refills, Maintenance, 04/26/20 16:38:00 EST, [facility] #[id number], 2.5 FILMS Sublingual Daily,Instr:[id number], 163, cm, 04/26/20 14:26:00 EST, Height, 105, [...]
--- OUTSIDE RECORDS SUMMARY | 2024-03-03 23:43 | XMS_ITS | Continuity of Care Document ---
Author Organization [facility] Address [address] [address]- Care Team Providers Care Raisin Separator Operator Name Role Phone Angela BROWN, Robyn Martinez Primary Care Physician Encounter [facility] Date(s): 08/01/20 - 08/31/20 [facility] [address] [place] [id number] [place] Attending Physician: Admtr, [id number] Admitting Physician: Admtr, [id number] Referring Physician: Admtr, [...] Unknown, 11 Refills, Maintenance, 06/19/20 16:07:00 EST, [facility] 35735, 20, INHALE 2 PUFFS BY MOUTH EVERY 4 TO 6 HOURS NEEDED FOR WHEEZE FOR SHORTNESS... Start Date: 06/19/20 Status: Ordered Suboxone 8 mg-2 mg sublingual film 2.5 FILMS, Sublingual, Daily, [id number], # 75 film, 1 Refills, Maintenance, 04/26/20 16:38:00 EST, [facility] #[id number], 2.5 FILMS Sublingual Daily,Instr:[id number], 163, cm, 04/26/20 14:26:00 EST, Height, 105, [...]
--- OUTSIDE RECORDS SUMMARY | 2024-03-03 23:43 | XMS_ITS | Continuity of Care Document ---
Author Organization [facility] [place] Address [address] [place] [address]- Care Team Providers Care Camp Housekeeper Name Role Phone Fine STEPHANIE, Compa Hall Primary Care Physician Encounter [facility] Date(s): 07/01/23 - 07/31/23 [facility] [place] [address] [place] [address]- Allergies, Adverse Reactions, Alerts No Known Allergies Immunizations Given and Recorded Vaccine Date Status Refusal Reason SARS-CoV-2 (COVID-19) mRNA BNT-162b2 vac 09/08/20 Recorded SARS-CoV-2 (COVID-19) mRNA BNT-162u0 vac 08/18/20 Recorded pneumococcal 23-valent vaccine 10/21/16 Given tetanus-diphtheria toxoids (Td) 05/05/03 Recorded Medications albuterol-ipratropium 3 mg-0.5 mg/3 ml inhalation solution 3 mL, Inhalation, 4 times a day, PRN Wheezing/Shortness of Breath, DX: J45.909 do not use ventolineand Nebs at the same time, # 90 mL, 11 Refills, Maintenance, 03/25/23 12:53:00 EST, Solution, [facility] #[id number], 3 mL Inhalation 4 times a da... Start Date: 03/25/23 Status: Ordered Breo Ellipta 100 mcg-25 mcg/inh inhalation powder 1 puffs, Inhalation, Daily, [employer]., # 1 each, 3 Refills, 11/21/22 10:33:00 EDT, [facility] #[id number], 1 puffs Inhalation Daily,Instr:RINSE MOUTH AFTERWARDS., 170, cm, 11/19/2313:19:00 EDT, Height, 94.4, kg, 11/08/22 14:35:00 E... Start Date: 11/21/22 Status: Ordered cloNIDine 0.1 mg oral tablet 0.05 mg, 0.5, tablet, By Mouth, 4 times a day, PRN, stay hydrated, # 120 tablet, Refills 0, Tot. Refills 0, Maintenance, anxiety, panic, withdrawal symptoms, 07/24/23 16:00:00 EDT, Route to Pharmacy Electronically, [facility] #[id number], Partial... Start Date: 07/24/23 Stop Date: 08/23/23 Status: Ordered duloxetine 30 mg oral enteric coated capsule 1 capsule = 30 mg, By Mouth, 2 times a day, do not crush or chew, # 180 capsule, 3 Refills, Maintenance, 12/20/22 17:50:00 EDT, [facility] #[id number], 170, cm, 12/06/22 0:43:00 EDT, Height, 94.4, kg, 11/08/22 14:35:00 EDT, Dry Weight Start Date: 12/20/22 Status: Ordered gabapentin 300 mg oral capsule 300 mg, 1, capsule, By Mouth, 3 times a day, # 270 capsule, Refills 1, Tot. Refills 1, Maintenance,02/12/23 10:36:00 EDT, Route to Pharmacy Electronically, [facility] #[id number], Partial fill upon patient request, 170, cm, 01/31/23 10:06:00 EDT... Start Date: 02/12/23 Status: Ordered hydroxychloroquine 200 mg oral tablet 1, tablet, By Mouth, 2 times a day, # 60 tablet, Refills 5, Tot. Refills 5, 04/15/23 13:55:00 EST, Route to Pharmacy Electronically, [facility] #[id number], 170, cm, 01/31/23 10:06:00 EDT, Height, 94.4, [...] 02/12/23 10:37:00 EDT, Route to Pharmacy Electronically, [facility] #[id number], 170, cm, 01/31/23 10:06:00EDT, Height, 94.4, kg, 11/08/22 14:35:00 EDT, Dry W... Start Date: 02/12/23 Stop Date: 08/11/23 Status: Ordered Suboxone 8 mg-2 mg Sublingual Film 1 film, Sublingual, 3 times a day, dissolve under the tongue, # 90 film, 1 Refills, Maintenance, 07/13/23 11:49:00 EDT, [facility] #[id number], Partial fill upon patient request if the prescription is for a schedule II opioid drug. ALVINA [id number];... Start Date: 07/13/23 Stop Date: 09/11/23 Status: Ordered tiZANidine 2 mg oral tablet 2 mg, 1, tablet, By Mouth, 3 times a day, # 84 tablet, Refills 1, Tot. Refills 1, Maintenance, 07/01/23 16:53:00 EST, Route to Pharmacy Electronically, [facility] #[id number], Partial fill upon patient request if the prescription is for a schedul... Start Date: 07/01/23 Stop Date: 08/26/23 Status: Ordered Trelegy Ellipta 200 mcg-62.5 mcg-25 mcg/inh inhalation powder 1 puffs, Inhalation, Daily, at the same time every day, # 3 each, 3 Refills, Maintenance, 07/23/23 16:56:00 EDT, Powder, [facility] #[id number], Partial fill upon patient request if the prescription is for a schedule II opioid drug., 1 puffs Inha... Start Date: 07/23/23 Stop Date: 07/17/24 Status: Ordered Ventolin HFA 108 mcg/inh inhalation aerosol with adapter 2 puffs, Inhalation, 4 times a day, PRN for wheezing, # 1 each, 3 Refills, Maintenance, 05/28/23 12:34:00 EST, Aerosol, [facility] #[id number], Partial fill upon patient request if the prescription is for a schedule II opioid drug., 170, cm, 04/04... Start Date: 05/28/23 Status: Ordered Voltaren Arthritis Pain 1% topical gel = 4 Gm, Topically, 4 times a day, # 480 Gm, 4 Refills, Maintenance, 07/24/23 14:31:00 EDT, [facility] #[id number], Partial fill upon patient request if the [...] Professional Member Role: PCP Address: Address: [address] [facility] [place] [address]- Name: Blaire Iglesias [place] Position: [facility] RN Member Role: Primary Care Nurse Name: Rhiannon Gibson Position: [facility] RN Member Role: Primary Care Nurse Name: Viral Jolly MD [facility] Physician - Behavioral Health Member Role: Lifetime Consulting Physician Address: Address: [address] [place] [address]- Care Team Related Persons Name: MAIN MOSER Address: home [address] [place] [address] Name: JORGE GARCIA Address: home [address] [place] [address] Name: LOREE SIFUENTES
--- OUTSIDE RECORDS SUMMARY | 2024-03-03 23:43 | XMS_ITS | Continuity of Care Document ---
Author Organization [facility] Address [address] [place] [address]- Care Team Providers Care Automotive Artist Name Role Phone Gen BROWN, Claribel Primary Care Physician Encounter [facility] Date(s): 11/12/21 - 12/12/21 [facility] [address] [place] [address]- Allergies, Adverse Reactions, Alerts No Known Allergies [...]
--- OUTSIDE RECORDS SUMMARY | 2024-03-03 23:43 | XMS_ITS | Continuity of Care Document ---
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 Start Date: 03/25/23 Status: Ordered Breo Ellipta 100 mcg-25 mcg/inh inhalation powder 1 puffs, Inhalation, Daily, RIN[employer] AFTERWARDS., # 1 each, 3 Refills, 11/21/22 10:33:00 EDT, [facility] #[id number], 1 puffs Inhalation Daily,Instr:RIN[employer] MOU[employer] AFTERWARDS., 170, cm, 11/19/2313:19:00 EDT, Height, 94.4, kg, 11/08/22 14:35:00 E... Start Date: 11/21/22 Status: Ordered calcium (as citrate)-vitamin D 315 mg-250 intl units oral tablet 2 tablet, By Mouth, 2 times a day, # 120 tablet, 11 Refills, Maintenance, 10/27/23 11:47:00 EDT, Tablet, [facility] #85276, Partial fill upon patient request if the [...] 09/18/23 10:13:00 EDT, Route to Pharmacy Electronically, [facility] #[id number], Partial... Start Date: 09/18/23 Stop Date: 03/16/24 Status: Ordered doxycycline hyclate 100 mg oral capsule 1 capsule = 100 mg, By Mouth, 2 times a day, for 7 days, # 14 capsule, 0 Refills, Acute 11/11/23 9:45:00 EDT, 11/04/23 9:45:00 EDT, Capsule, [facility] #[id number], Partial fill upon patient request if the prescription is for a schedule II opioid... Start Date: 11/04/23 Stop Date: 11/11/23 Status: Ordered duloxetine 30 mg oral enteric coated capsule 1 capsule = 30 mg, By Mouth, 2 times a day, do not crush or chew, # 180 capsule, 3 Refills, Maintenance, 12/20/22 17:50:00 EDT, [facility] #[id number], 170, cm, 12/06/22 0:43:00 EDT, Height, 94.4, kg, 11/08/22 14:35:00 EDT, Dry Weight Start Date: 12/20/22 Status: Ordered gabapentin 300 mg oral capsule 300 mg, 1, capsule, By Mouth, 3 times a day, # 270 capsule, Refills 1, Tot. Refills 1, Maintenance,08/11/23 9:29:00 EDT, Route to Pharmacy Electronically, [facility] #[id number], Partial fill upon patient request, 170, cm, 07/23/23 16:32:00 EDT,... Start Date: 08/11/23 Status: Ordered hydroxychloroquine 200 mg oral tablet 1, tablet, By Mouth, 2 times a day, # 60 tablet, Refills 5, Tot. Refills 5, 04/15/23 13:55:00 EST, Route to Pharmacy Electronically, [facility] #[id number], 170, cm, 01/31/23 10:06:00 EDT, Height, 94.4, kg, 11/08/22 14:35:00 EDT, Dry Weight Start Date: 04/15/23 Status: Ordered hydrOXYzine hydrochloride 25 mg oral tablet See Instructions, TAKE 1 TABLET BY MOUTH TWICE DAILY NEEDED FOR ANXIETY, # 60 tablet, 5 Refills,Maintenance, 09/18/23 10:13:00 EDT, [facility] #[id number], 170, cm, 07/23/23 16:32:00 EDT, Height, 100, [...] 08/11/23 9:29:00 EDT, Route to Pharmacy Electronically, [facility] #[id number], 170, cm, 07/23/23 16:32:00 EDT, Height, 100, kg, 04/20/23 21:48:00 EST, Dry Weight Start Date: 08/11/23 Stop Date: 02/07/24 Status: Ordered Suboxone 8 mg-2 mg Sublingual Film 1 film, Sublingual, 3 times a day, for 14 days, dissolve under the tongue, # 42 film, 0 Refills, Hard Stop 11/25/23 9:01:00 EDT, 11/11/23 9:01:00 EDT, [facility] #[id number], Partial fill upon patient request if the prescription is for a schedule... Start Date: 11/11/23 Stop Date: 11/25/23 Status: Ordered Suboxone 8 mg-2 mg Sublingual Film 1 film, Sublingual, 3 times a day, for 30 days, dissolve under the tongue, # 90 film, 1 Refills, Hard Stop 11/11/23 9:01:00 EDT, 09/12/23 9:01:00 EDT, [facility] #[id number], Partial fill upon patient request if the prescription is for a schedule... Start Date: 09/12/23 Stop Date: 11/11/23 Status: Ordered tiZANidine 2 mg oral tablet 2 mg, 1, tablet, By Mouth, 3 times a day, # 84 tablet, Refills 1, Tot. Refills 1, Maintenance, 09/08/23 18:10:00 EDT, Route to Pharmacy Electronically, [facility] #[id number], Partial fill upon patient request if the prescription is for a schedul... Start Date: 09/08/23 Stop Date: 11/03/23 Status: Ordered tobramycin 0.3% ophthalmic solution 1 drops, Eyes, Both, 4 times a day, for 7 days, # 5 mL, 0 Refills, Acute 11/11/23 9:45:00 EDT, 11/04/23 9:45:00 EDT, Solution, [facility] #[id number], Partial fill upon patient request if the prescription is for a schedule II opioid drug., 1 drop... Start Date: 11/04/23 Stop Date: 11/11/23 Status: Ordered Trelegy Ellipta 200 mcg-62.5 mcg-25 mcg/inh inhalation powder 1 puffs, Inhalation, Daily, at the same time every day, # 3 each, 3 Refills, Maintenance, 07/23/23 16:56:00 EDT, Powder, [facility] #[id number], Partial fill upon patient request if the prescription is for a schedule II opioid drug., 1 puffs Inha... Start Date: 07/23/23 Stop Date: 3/15/25 Status: Ordered Ultram 50 mg oral tablet 1 tablet = 50 mg, By Mouth, Every 12 hours, PRN for pain, # 20 tablet, 0 Refills, Maintenance, 10/14/23 9:32:00 EDT, Tablet, [facility] #[id number], Partial fill upon patient request if the prescription is for a schedule II opioid drug., 170, cm,... Start Date: 10/14/23 Status: Ordered Ventolin HFA 108 mcg/inh inhalation aerosol with adapter 2 puffs, Inhalation, 4 times a day, PRN for wheezing, # 1 each, 3 Refills, Maintenance, 05/28/23 12:34:00 EST, Aerosol, [facility] #[id number], Partial fill upon patient request if the prescription is for a schedule II opioid drug., 170, cm, 04/04... Start Date: 05/28/23 Status: Ordered Voltaren Arthritis Pain 1% topical gel = 4 Gm, Topically, 4 times a day, # 480 Gm, 4 Refills, Maintenance, 07/24/23 14:31:00 EDT, [facility] #[id number], Partial fill upon patient request if the [...] Associate Professional Member Role: PCP Address: Address: [address] [place] [address] [place] [address]- [place] Name: Blaire Iglesias [place] Position: [facility] Office Staff Member Role: Primary Care Nurse Name: Rhiannon Li [place] Position: [facility] Staff Member Role: Primary Care Nurse Name: Viral Jolly MD Position: [facility] Physician - Behavioral Health Member Role: Lifetime Consulting Physician Address: Address: [address] [place] [address]- Care Team Related Persons Name: MAIN MOSER Address: home [address] [place] [address] Name: JORGE GARCIA Address: home [address] [place] [address] Name: LOREE SIFUENTES
--- OUTSIDE RECORDS SUMMARY | 2024-03-03 23:43 | XMS_ITS | Continuity of Care Document ---
Author Organization [facility] Address [address] [place] [address]- Care Team Providers Care Development Technical Lead Name Role Phone Angela BROWN, Robyn Martinez Primary Care Physician Encounter [facility] Date(s): 04/05/20 - 05/05/20 [facility] [address] [place] [address]- Attending Physician: Maddie Jones Admitting Physician: Maddie Jones Referring Physician: Admtr, Sterling8 Allergies, Adverse Reactions, [...] 11 Refills, Maintenance, 05/31/19 17:40:00 EST, Solution, [facility]/pharmacy #[id number], 3 mL Inhalation 4 times a day,PRN:Whe... Start Date: 05/31/19 Status: Ordered Suboxone 8 mg-2 mg sublingual film 2.5 FILMS, Sublingual, Daily, [id number], # 75 film, 1 Refills, Maintenance, 04/26/20 16:38:00 EST, [facility] #[id number], 2.5 FILMS Sublingual Daily,Instr:[id number], 163, cm, 04/26/20 14:26:00 EST, Height, 105, [...]
--- OUTSIDE RECORDS SUMMARY | 2024-03-03 23:43 | XMS_ITS | Continuity of Care Document ---
Author Organization [facility] Address [address] [place] [address]- Care Team Providers Care Senior Examiner Name Role Phone Robyn Miller NP Primary Care Physician Encounter [facility] Date(s): 06/27/20 - 07/04/20 [facility] [address] [place] [address]- Attending Physician: Philip Aguilar MD Admitting Physician: [...] Refills, Maintenance, 06/19/20 16:07:00 EST, [id number], 20, INHALE 2 PUFFS BY MOUTH EVERY 4 TO 6 HOURS NEEDED FOR WHEEZE FOR SHORTNESS... Start Date: 06/19/20 Status: Ordered Suboxone 8 mg-2 mg sublingual film 2.5 FILMS, Sublingual, Daily, [id number], # 75 film, 1 Refills, Maintenance, 04/26/20 16:38:00 EST, [email or web address] #[id number], 2.5 FILMS Sublingual Daily,Instr:[id number], 163, cm, 04/26/20 14:26:00 EST, Height, 105, [...] oldest [Reference Range]: 1 Height 170 cm (06/27/20 9:02 AM) Weight 100.00 kg (06/27/20 9:02 AM) Oxygen Saturation [94-100 %] 97 % (06/27/20 9:02 AM) Pulse Rate [55-90 bpm] 93 bpm *H* (06/27/20 9:02 AM) Body Mass Index [18.5-24.99] 34.6 *>HHI* (06/27/20 9:02 AM) Blood Pressure [90-138/55-84 mm Hg] 118/ 64mm Hg (06/27/20 9:02 AM) Blood pressure sites Arm, left (06/27/20 9:02 AM) Weight Obtained Via Patient/family state d (06/27/20 9:02 AM) Social History Social History Type Response Smoking Status Current every day antony gomez entered on: 09/29/14 Sex
--- OUTSIDE RECORDS SUMMARY | 2024-03-03 23:43 | XMS_ITS | Continuity of Care Document ---
Author Organization [facility] [place] Address [address] [place] [address]- Care Team Providers Care Human Resources Project Manager Name Role Phone Angela BROWN, Robyn Martinez Primary Care Physician Encounter [facility] Date(s): 07/20/20 - 08/19/20 [facility] [place] [address] [place] [address]- Allergies, Adverse Reactions, Alerts Substance Reaction Severity [...] a day,PRN:Whe... Start Date: 05/31/19 Status: Ordered amoxicillin 500 mg oral capsule 1 capsule = 500 mg, By Mouth, 3 times a day, for 7 days, # 21 capsule, 0 Refills, Acute 08/25/20 13:45:00 EDT, 08/18/20 13:45:00 EDT, [facility]apsule, [id number], Partial fill upon patient request ifthe prescription is for a schedule II opioid drug.,... Start Date: 08/18/20 Stop Date: 08/25/20 Status: Ordered predniSONE 20 mg oral tablet 1 tablet = 20 mg, By Mouth, 2 times a day, for 5 days, # 10 tablet, 0 Refills, Acute 08/21/20 16:12:00 EDT, 08/16/20 16:12:00 EDT, Tablet, [facility] #0969, Partial fill upon patient request if theprescription is for a schedule II opioid drug., 170... Start Date: 08/16/20 Stop Date: 08/21/20 Status: Ordered ProAir HFA 90 mcg/inh inhalation aerosol 2 puffs, Inhalation, Every 4 to 6 hours, PRN NEEDED FOR WHEEZE FOR SHORTNESS OF BREATH, # 18 Unknown, 11 Refills, Maintenance, 06/19/20 16:07:00 EST, [id number], 20, INHALE 2 PUFFS BY MOUTH EVERY 4 TO 6 HOURS NEEDED FOR WHEEZE FOR SHORTNESS... Start Date: 06/19/20 Status: Ordered Suboxone 8 mg-2 mg sublingual film 2.5 FILMS, Sublingual, Daily, [id number], # 75 film, 1 Refills, Maintenance, 04/26/20 16:38:00 EST, [facility] #[id number], 2.5 FILMS Sublingual Daily,Instr:[id number], 163, cm, 04/26/20 14:26:00 EST, Height, 105, [...] Type Response Smoking Status Current every day atnony gomez entered on: 09/29/14 Sex
--- OUTSIDE RECORDS SUMMARY | 2024-03-03 23:43 | XMS_ITS | Continuity of Care Document ---
Author Organization [facility] Address [address] [place] [address]- Care Team Providers Care Lunchroom Monitor Name Role Phone Angela BROWN, Robyn Martinez Primary Care Physician Encounter [facility] Date(s): 08/08/20 - 09/07/20 [facility] [place] [address] [place] [address]- Attending Physician: AdmMaddie childs Admitting Physician: AdmtrMaddie [...] Unknown, 11 Refills, Maintenance, 06/19/20 16:07:00 EST, [facility] 94[facility], 20, INHALE 2 PUFFS BY MOUTH EVERY 4 TO 6 HOURS NEEDED FOR WHEEZE FOR SHORTNESS... Start Date: 06/19/20 Status: Ordered Suboxone 8 mg-2 mg sublingual film 2.5 FILMS, Sublingual, Daily, [id number], # 75 film, 1 Refills, Maintenance, 04/26/20 16:38:00 EST, [facility] #[id number], 2.5 FILMS Sublingual Daily,Instr:[id number], 163, cm, 04/26/20 14:26:00 EST, Height, 105, [...]
--- OUTSIDE RECORDS SUMMARY | 2024-03-03 23:43 | XMS_ITS | Continuity of Care Document ---
Author Organization [facility] [place] Address [address] [place] [address]- Care Team Providers Care Baler Name Role Phone Roxi BROWN, Compa Hall Primary Care Physician Encounter [facility] Date(s): 11/08/22 - 12/08/22 [facility] [place] [address] [place] [address]- Allergies, Adverse Reactions, Alerts No Known Allergies Immunizations Given and Recorded Vaccine Date Status Refusal Reason SARS-CoV-2 (COVID-19) mRNA BNT-162b2 vac 09/08/20 Recorded SARS-CoV-2 (COVID-19) mRNA BNT-162e9 vac 08/18/20 Recorded pneumococcal 23-valent vaccine 10/21/16 Given tetanus-diphtheria toxoids (Td) 05/05/03 Recorded Not Given Vaccine Date Status Refusal Reason influenza virus vaccine, inactivated 03/02/19 Not Given Patient Refuses Medications acamprosate 333 mg oral delayed release tablet 2 tablet = 666 mg, By Mouth, 3 times a day, # 180 tablet, 2 Refills, Maintenance, 12/06/22 14:34:00EDT, CR Tablet, [email or web address] #[id number], Partial fill upon patient request if the [...] Refills, Maintenance, 08/22/20 13:04:00 EDT, [facility], [id number], 3 mL Inhalation 4 times a day,PRN:Whe... Start Date: 08/22/20 Status: Ordered Breo Ellipta 100 mcg-25 mcg/inh inhalation powder 1 puffs, Inhalation, Daily, RIN[employer] MOU[employer] AFTERWARDS., # 1 each, 3 Refills, 11/21/22 10:33:00 EDT, [facility] #[id number], 1 puffs Inhalation Daily,Instr:RINSE MOUTH AFTERWARDS., 170, cm, 11/19/2313:19:00 EDT, Height, 94.4, kg, 11/08/22 14:35:00 E... Start Date: 11/21/22 Status: Ordered cloNIDine 0.1 mg oral tablet 0.05 mg, 0.5, tablet, By Mouth, 4 times a day, PRN, # 60 tablet, Refills 1, Tot. Refills 1, Maintenance, anxiety, panic, withdrawal symptoms, 10/25/22 15:45:00 EDT, Route to Pharmacy Electronically, [facility] #[id number], Partial fill upon patie... Start Date: 10/25/22 Status: Ordered diclofenac 1% topical gel = 2 Gm, Topically, 2 times a day, # 100 Gm, 2 Refills, 11/29/22 12:21:00 EDT, [facility] #[id number], 25, 2 Gm Topically 2 times a [...] 04/03/23 9:00:00 EST, 10/25/22 15:39:00 EDT, Tablet, [facility] #30976, Partial fill upon patient... Start Date: 10/25/22 Stop Date: 04/03/23 Status: Ordered duloxetine 30 mg oral enteric coated capsule 1 capsule = 30 mg, By Mouth, 2 times a day, do not crush or chew, # 180 capsule, 3 Refills, Maintenance, 02/19/22 14:28:00 EDT, [facility] #45019, 170, cm, 03/07/21 11:09:00 EDT, Height, 107.3, kg, 06/22/20 13:29:00 EST, Dry Weight Start Date: 02/19/22 Status: Ordered famotidine 20 mg oral tablet 20 mg, 1, tablet, By Mouth, Daily, OV 5-6-20, # 30 tablet, Refills 5, Tot. Refills 5, Maintenance, 08/21/20 12:25:00 EDT, [id number], 170, cm, 08/16/20 15:32:00 EDT, Height, 107.3, kg, 06/22/20 13:29:00 EST, D... Start Date: 08/21/20 Status: Ordered gabapentin 300 mg oral capsule 300 mg, 1, capsule, By Mouth, 3 times a day, # 270 capsule, Refills 1, Tot. Refills 1, Maintenance,08/21/21 14:14:00 EDT, Route to Pharmacy Electronically, [facility] #[id number], Partial fill upon patient request, 170, cm, 03/07/21 11:09:00 EDT... Start Date: 08/21/21 Status: Ordered gabapentin 300 mg oral capsule 300 mg, 1, capsule, By Mouth, 3 times a day, # 270 capsule, Refills 3, Tot. Refills 3, Maintenance,02/19/22 14:28:00 EDT, Route to Pharmacy Electronically, [facility] #[id number], Partial fill upon patient request, 170, cm, 03/07/21 11:09:00 EDT... Start Date: 02/19/22 Status: Ordered hydroxychloroquine 200 mg oral tablet 1, tablet, By Mouth, 2 times a day, # 60 tablet, Refills 5, Tot. Refills 5, 05/16/22 16:23:00 EST, Route to Pharmacy Electronically, [facility] #[id number], 175, cm, 05/01/22 15:32:00 EST, Height, 75, [...] 18 each, 3 Refills, 11/22/22 15:59:00 EDT, [facility] #95833, 20, 2 puffs Inhalation Every 4 to6 hours,PRN: NEEDED FOR SHORTNESS OF BREATH OR WH... Start Date: 11/22/22 Status: Ordered ProAir HFA 90 mcg/inh inhalation aerosol 2 puffs, Inhalation, Every 4 to 6 hours, PRN NEEDED FOR SHORTNESS OF BREATH OR WHEEZING, # 18 Gm, 5 Refills, 03/20/22 16:08:00 EST, [facility] #[id number], 2 puffs Inhalation Every 4 to 6 hours,PRN: NEEDED FOR SHORTNESS OF BREATH OR WHEEZING... Start Date: 03/20/22 Status: Ordered risperiDONE 1 mg oral tablet 1 mg, 1, tablet, By Mouth, Daily, # 90 tablet, Refills 3, Tot. Refills 3, Maintenance, 02/19/22 14:27:00 EDT, Route to Pharmacy Electronically, [facility] #[id number], 170, cm, 03/07/21 11:09:00EDT, Height, 107.3, kg, [...] film, 1 Refills, Maintenance, 11/14/22 10:32:00 EDT, [facility] #[id number], Partial fill upon patient request if the prescription is for a schedule II opioid drug. ALVINA [id number];... Start Date: 11/14/22 Stop Date: 01/13/23 Status: Ordered Vitamin D3 1000 intl units oral tablet 1 tablet = 1,000 International_Units, By Mouth, Daily, # 30 tablet, 11 Refills, Maintenance, 10/04/19 11:54:00 EDT, Tablet, [facility]/pharmacy #[id number], 163, cm, 10/04/19 11:27:00 [...] Professional Member Role: PCP Address: Address: [address] [facility] [place] [address]- [place] Name: Blaire Iglesias [place] Position: [facility] RN Member Role: Primary Care Nurse Name: Rhiannon Gibson Position: [facility] RN Member Role: Primary Care Nurse Name: Viral Jolly MD Position: [facility] Physician - Behavioral Health Member Role: Lifetime Consulting Physician Address: Address: [address] [place] [address]- Care Team Related Persons Name: MAIN MOSER Address: [address] [place] [address] Name: JORGE GARCIA Address: home [address] [place] [address] Name: LOREE SIFUENTES
--- OUTSIDE RECORDS SUMMARY | 2024-03-03 23:43 | XMS_ITS | Continuity of Care Document ---
Author Organization [facility] Address [address] [place] [address]- Care Team Providers Care Bail Agent Name Role Phone Angela BROWN, Robyn Martinez Primary Care Physician [place] [facility] [place]20 [facility] [place] [address] [place] [address]- Attending Physician: Admtr, Ar8 Admitting Physician: Admtr, [...] Unknown, 11 Refills, Maintenance, 06/19/20 16:07:00 EST, [id number], 20, INHALE 2 PUFFS BY MOUTH EVERY 4 TO 6 HOURS NEEDED FOR WHEEZE FOR SHORTNESS... Start Date: 06/19/20 Status: Ordered Suboxone 8 mg-2 mg sublingual film 2.5 FILMS, Sublingual, Daily, [id number], # 75 film, 1 Refills, Maintenance, 04/26/20 16:38:00 EST, [facility] #[id number], 2.5 FILMS Sublingual Daily,Instr:[id number], 163, cm, 04/26/20 14:26:00 EST, Height, 105, [...]
--- OUTSIDE RECORDS SUMMARY | 2024-03-03 23:43 | XMS_ITS | Continuity of Care Document ---
Author Organization [facility] Address [address] [place] [address]- Care Team Providers Care Content Coordinator Name Role Phone Gen BROWN, Claribel Primary Care Physician Encounter [facility] Date(s): 04/09/22 - 05/09/22 [facility] [address] [place] [address]- Allergies, Adverse Reactions, Alerts No Known Allergies [...] Refills, Maintenance, 08/22/20 13:04:00 EDT, Solution, [facility]/pharmacy #[id number], 3 mL Inhalation 4 times a day,PRN:Whe... Start Date: 08/22/20 Status: Ordered Breo Ellipta 100 mcg-25 mcg/inh inhalation powder 1 puffs, Inhalation, Daily, [employer]., # 60 each, 1 Refills, [id number], 30, INHALE 1 PUFF BY MOUTH EVERY DAY. [employer]., 170, cm, 03/07/21 11:09:00 EDT, Height, 107.3, kg, 06/22/20 13:29:00 EST, Dry Weight Start Date: 11/12/21 Status: Ordered diclofenac 1% topical gel = 2 Gm, Topically, 2 times a day, # 100 Gm, 2 Refills, 01/22/22 17:37:00 EDT, [facility] #[id number], 25, 2 Gm Topically 2 times a day, 170, cm, 03/07/21 11:09:00 EDT, Height, 107.3, kg, 06/22/20 13:29:00 EST, Dry Weight Start Date: 01/22/22 Status: Ordered duloxetine 30 mg oral enteric coated capsule 1 capsule = 30 mg, By Mouth, 2 times a day, do not crush or chew, # 180 capsule, 3 Refills, Maintenance, 02/19/22 14:28:00 EDT, [facility] #[id number], 170, cm, 03/07/21 11:09:00 EDT, Height, 107.3, kg, 06/22/20 13:29:00 EST, Dry Weight Start Date: 02/19/22 Status: Ordered famotidine 20 mg oral tablet 20 mg, 1, tablet, By Mouth, Daily, OV 5-6-20, # 30 tablet, Refills 5, Tot. Refills 5, Maintenance, 08/21/20 12:25:00 EDT, Route to Pharmacy Electronically, [facility]/pharmacy #[id number], 170, cm, 08/16/20 15:32:00 EDT, Height, 107.3, kg, 06/22/20 13:29:00 EST, D... Start Date: 08/21/20 Status: Ordered gabapentin 300 mg oral capsule 300 mg, 1, capsule, By Mouth, 3 times a day, # 270 capsule, Refills 1, Tot. Refills 1, Maintenance,08/21/21 14:14:00 EDT, Route to Pharmacy Electronically, [facility] #[id number], Partial fill upon patient request, 170, cm, 03/07/21 11:09:00 EDT... Start Date: 08/21/21 Status: Ordered gabapentin 300 mg oral capsule 300 mg, 1, capsule, By Mouth, 3 times a day, # 270 capsule, Refills 3, Tot. Refills 3, Maintenance,02/19/22 14:28:00 EDT, Route to Pharmacy Electronically, [facility] #[id number], Partial fill upon patient request, 170, cm, 03/07/21 11:09:00 EDT... Start Date: 02/19/22 Status: Ordered hydroxychloroquine 200 mg oral tablet 1, tablet, By Mouth, 2 times a day, # 60 tablet, Refills 5, Route to Pharmacy Electronically, [id number], 170, cm, 03/07/21 11:09:00 EDT, Height, 107.3, [...] 18 Gm, 5 Refills, 03/20/22 16:08:00 EST, [facility] #[id number], 2 puffs Inhalation Every 4 to 6 hours,PRN: NEEDED FOR SHORTNESS OF BREATH OR WHEEZING... Start Date: 03/20/22 Status: Ordered risperiDONE 1 mg oral tablet 1 mg, 1, tablet, By Mouth, Daily, # 90 tablet, Refills 3, Tot. Refills 3, Maintenance, 02/19/22 14:27:00 EDT, Route to Pharmacy Electronically, [facility] #[id number], 170, cm, 03/07/21 11:09:00EDT, Height, 107.3, kg, 06/22/20 13:29:00 EST, Dry... Start Date: 02/19/22 Stop Date: 02/14/23 Status: Ordered Suboxone 8 mg-2 mg Sublingual Film 1 film, Sublingual, 3 times a day, dissolve under the tongue, # 21 film, 0 Refills, Maintenance, 04/05/22 8:36:00 EST, [facility] #[id number], Partial fill upon patient request if the prescription is for a schedule II opioid drug. [facility] [id number],... Start Date: 04/05/22 Stop Date: 04/12/22 Status: Ordered Suboxone 8 mg-2 mg Sublingual Film 1 film, Sublingual, 3 times a day, dissolve under the tongue, # 90 film, 1 Refills, Maintenance, 02/08/22 13:04:00 EDT, [facility] #[id number], Partial fill upon patient request if the prescription is for a schedule II opioid drug. [facility] [id number],... Start Date: 02/08/22 Stop Date: 04/09/22 Status: Ordered Suboxone 8 mg-2 mg Sublingual Film 1 film, Sublingual, 3 times a day, dissolve under the tongue, # 90 film, 1 Refills, Maintenance, 12/10/21 14:40:00 EDT, [facility] #[id number], Partial fill upon patient request if the prescription is for a schedule II opioid drug. [facility] [id number],... Start Date: 12/10/21 Stop Date: 02/08/22 Status: Ordered Suboxone 8 mg-2 mg Sublingual Film 1 film, Sublingual, 3 times a day, dissolve under the tongue, # 21 film, 0 Refills, Maintenance, 04/12/22 14:58:00 EST, [facility] #[id number], Partial fill upon patient request if the prescription is for a schedule II opioid drug. [facility] [id number],... Start Date: 04/12/22 Stop Date: 04/19/22 Status: Ordered Suboxone 8 mg-2 mg sublingual film 3 film, Sublingual, Daily, [id number], # 90 film, 1 Refills, Maintenance, 10/21/21 9:55:00 EDT, [facility] #[id number], 3 film Sublingual Daily,x30 days,Instr:[id number], 170, cm, 03/07/21 11:09:00 EDT, Height, 107.3, kg, 06/22/20 13:29:00 EST, Dry... Start Date: 10/21/21 Stop Date: 12/20/21 Status: Ordered traZODone 50 mg oral tablet 50 mg, 1, tablet, By Mouth, Daily at bedtime, PRN, as needed, # 90 tablet, Refills 3, Tot. Refills 3, Maintenance, Sleep, 02/19/22 14:27:00 EDT, Route to Pharmacy Electronically, [facility][id number], 170, cm, 03/07/21 11:09:00 EDT, Height, 107... [...] Team Personnel Name: Blaire Crandall Position: [facility] RN Member Role: Primary Care Nurse Name: Rhiannon Gibson Position: [facility] RN Member Role: Primary Care Nurse Name: Claribel Blevins NP Position: [facility] PCO Associate Professional Member Role: PCP Address: Address: [address] [place] [address]- Name: Viral Jolly MD Position: [facility] Psychiatry MD Member Role: Lifetime Consulting Physician Address: Address: [address] [place] [address]- Care Team Related Persons Name: MAIN MOSER Address: home [address] [place] [address] Name: JORGE GARCIA Address: home [address] [place] [address]
--- OUTSIDE RECORDS SUMMARY | 2024-03-03 23:44 | XMS_ITS | Continuity of Care Document ---
Author Organization [facility] Address [address] [place] [address]- Care Team Providers Care Cost Estimating Manager Name Role Phone Angela BROWN, Robyn Martinez Primary Care Physician Encounter [facility] Date(s): 11/15/19 - 12/15/19 [facility] [place] [address] [place] [address]- [facility] Allergies, Adverse Reactions, Alerts Substance Reaction [...]
--- OUTSIDE RECORDS SUMMARY | 2024-03-03 23:44 | XMS_ITS | Continuity of Care Document ---
Author Organization [facility] [place] Address [address] [place] [address]- Care Team Providers Care Spring Tester Name Role Phone Fine THIRD RIGGER, Compa Hall Primary Care Physician Encounter [facility] Date(s): 12/23/22 - 01/22/23 [facility] [place] [address] [place] [address]- Allergies, Adverse Reactions, Alerts No Known Allergies Immunizations Given and Recorded Vaccine Date Status Refusal Reason SARS-CoV-2 (COVID-19) mRNA BNT-162b2 vac 09/08/20 Recorded SARS-CoV-2 (COVID-19) mRNA BNT-162f6 vac 08/18/20 Recorded pneumococcal 23-valent vaccine 10/21/16 Given tetanus-diphtheria toxoids (Td) 05/05/03 Recorded Medications albuterol-ipratropium 3 mg-0.5 mg/3 ml inhalation solution 3 mL, Inhalation, 4 times a day, PRN Wheezing/Shortness of Breath, DX: J45.909 do not use ventolineand Nebs at the same time, # 90 mL, 11 Refills, Maintenance, 08/22/20 13:04:00 EDT, Solution, [facility]/pharmacy #[id number], 3 mL Inhalation 4 times a day,PRN:Whe... Start Date: 08/22/20 Status: Ordered Breo Ellipta 100 mcg-25 mcg/inh inhalation powder 1 puffs, Inhalation, Daily, [employer]., # 1 each, 3 Refills, 11/21/22 10:33:00 EDT, [facility] #[id number], 1 puffs Inhalation Daily,Instr:[employer]., 170, cm, 11/19/2313:19:00 EDT, Height, 94.4, kg, 11/08/22 14:35:00 E... Start Date: 11/21/22 Status: Ordered cloNIDine 0.1 mg oral tablet 0.05 mg, 0.5, tablet, By Mouth, 4 times a day, PRN, # 60 tablet, Refills 1, Tot. Refills 1, Maintenance, anxiety, panic, withdrawal symptoms, 12/20/22 17:50:00 EDT, Route to Pharmacy Electronically, [facility] #[id number], Partial fill upon patie... Start Date: 12/20/22 Status: Ordered diclofenac 1% topical gel = 2 Gm, Topically, 2 times a day, # 100 Gm, 2 Refills, 11/29/22 12:21:00 EDT, [facility] #[id number], 25, 2 Gm Topically 2 times a day, 170, cm, 11/19/22 14:19:00 EDT, Height, 94.4, kg, 11/08/2313:35:00 EDT, Dry Weight Start Date: 11/29/22 Status: Ordered duloxetine 30 mg oral enteric coated capsule 1 capsule = 30 mg, By Mouth, 2 times a day, do not crush or chew, # 180 capsule, 3 Refills, Maintenance, 12/20/22 17:50:00 EDT, [facility] #[id number], 170, cm, 12/06/22 0:43:00 EDT, Height, 94.4, kg, 11/08/22 14:35:00 EDT, Dry Weight Start Date: 12/20/22 Status: Ordered famotidine 20 mg oral tablet 20 mg, 1, tablet, By Mouth, Daily, OV 5-6-20, # 30 tablet, Refills 5, Tot. Refills 5, Maintenance, 08/21/20 12:25:00 EDT, Route to Pharmacy Electronically, [facility]/pharmacy #[id number], 170, cm, 08/16/20 15:32:00 EDT, Height, 107.3, kg, 06/22/20 13:29:00 EST, D... Start Date: 08/21/20 Status: Ordered gabapentin 300 mg oral capsule 300 mg, 1, capsule, By Mouth, 3 times a day, # 270 capsule, Refills 1, Tot. Refills 1, Maintenance,12/20/22 17:52:00 EDT, Route to Pharmacy Electronically, [facility] #[id number], Partial fill upon patient request, 170, cm, 12/06/22 0:43:00 EDT,... Start Date: 12/20/22 Status: Ordered gabapentin 300 mg oral capsule 300 mg, 1, capsule, By Mouth, 3 times a day, # 270 capsule, Refills 3, Tot. Refills 3, Maintenance,02/19/22 14:28:00 EDT, Route to Pharmacy Electronically, [facility] #[id number], Partial fill upon patient request, 170, cm, 03/07/21 11:09:00 EDT... Start Date: 02/19/22 Status: Ordered hydroxychloroquine 200 mg oral tablet 1, tablet, By Mouth, 2 times a day, # 60 tablet, Refills 5, Tot. Refills 5, 05/16/22 16:23:00 EST, Route to Pharmacy Electronically, [facility] #[id number], 175, cm, 05/01/22 15:32:00 EST, Height, 75, [...] 1 Refills, Maintenance, 12/23/22 15:41:00 EDT, Tablet, [facility] #[id number], IF NOT COVERED, please use goodrx coupon [...] 18 each, 3 Refills, 11/22/22 15:59:00 EDT, [facility] #[id number], 20, 2 puffs Inhalation Every 4 to6 hours,PRN: NEEDED FOR SHORTNESS OF BREATH OR WH... Start Date: 11/22/22 Status: Ordered ProAir HFA 90 mcg/inh inhalation aerosol 2 puffs, Inhalation, Every 4 to 6 hours, PRN NEEDED FOR SHORTNESS OF BREATH OR WHEEZING, # 18 Gm, 5 Refills, 03/20/22 16:08:00 EST, [facility] #[id number], 2 puffs Inhalation Every 4 to 6 hours,PRN: NEEDED FOR SHORTNESS OF BREATH OR WHEEZING... Start Date: 03/20/22 Status: Ordered risperiDONE 1 mg oral tablet 1 mg, 1, tablet, By Mouth, Daily, # 90 tablet, Refills 3, Tot. Refills 3, Maintenance, 12/20/22 17:51:00 EDT, Route to Pharmacy Electronically, [facility] #[id number], 170, cm, 12/06/22 0:43:00 EDT, Height, 94.4, [...] film, 1 Refills, Maintenance, 01/13/23 10:32:00 EDT, [facility] #[id number], Partial fill upon patient request if the prescription is for a schedule II opioid drug. [facility]VINA [id number];... Start Date: 01/13/23 Stop Date: 03/14/23 Status: [...] Team Personnel Name: Compa Diane NP Position: [facility] PCO Associate Professional Member Role: PCP Address: Address: [address] [place] [address]- Name: Blaire Iglesias [place] Position: [facility] RN Member Role: Primary Care Nurse Name: Rhiannon Gibson Position: [facility] RN Member Role: Primary Care Nurse Name: Viral Jolly MD Position: [facility] Physician - Behavioral Health Member Role: Lifetime Consulting Physician Address: Address: [address] [place] [address]- Care Team Related Persons Name: MAIN MOSER Address: home [address] [place] [address] Name: JORGE GARCIA Address: home [address] [place] [address] Name: LOREE SIFUENTES
--- OUTSIDE RECORDS SUMMARY | 2024-03-03 23:44 | XMS_ITS | Continuity of Care Document ---
Author Organization [facility] Address [address] [place] [address]- Care Team Providers Care Unix Engineer Name Role Phone Fine WAREHOUSE FORKLIFT OPERATOR, Compa Hall Primary Care Physician Encounter 02/06/24 - 02/07/[address] [address] Attending Physician: Not on Staff, Attending MD Referring Physician: Not on Staff, Referring [...] 11 Refills, Maintenance, 03/25/23 12:53:00 EST, Solution, [facility] #[id number], 3 mL Inhalation 4 times a da... Start Date: 03/25/23 Status: Ordered Breo Ellipta 100 mcg-25 mcg/inh inhalation powder 1 puffs, Inhalation, Daily, [employer]., # 1 each, 3 Refills, 11/21/22 10:33:00 EDT, [facility] #[id number], 1 puffs Inhalation Daily,Instr:[employer]., 170, cm, 11/19/2313:19:00 EDT, Height, 94.4, kg, 11/08/22 14:35:00 E... Start Date: 11/21/22 Status: Ordered calcium (as citrate)-vitamin D 315 mg-250 intl units oral tablet 2 tablet, By Mouth, 2 times a day, # 120 tablet, 11 Refills, Maintenance, 10/27/23 11:47:00 EDT, Tablet, [facility] #[id number], Partial fill upon patient request if the [...] 09/18/23 10:13:00 EDT, Route to Pharmacy Electronically, [facility] #[id number], Partial... Start Date: 09/18/23 Stop Date: 03/16/24 Status: Ordered duloxetine 30 mg oral enteric coated capsule 1 capsule = 30 mg, By Mouth, 2 times a day, do not crush or chew, # 180 capsule, 3 Refills, Maintenance, 12/15/23 12:15:00 EDT, [facility] #[id number], 170, cm, 11/26/23 7:18:00 EDT, Height, 100, kg, 10/09/23 2:02:00 EDT, Dry Weight Start Date: 12/15/23 Status: Ordered duloxetine 30 mg oral enteric coated capsule 1 capsule = 30 mg, By Mouth, 2 times a day, do not crush or chew, # 180 capsule, 3 Refills, Maintenance, 12/20/22 17:50:00 EDT, [facility] #[id number], 170, cm, 12/06/22 0:43:00 EDT, Height, 94.4, kg, 11/08/22 14:35:00 EDT, Dry Weight Start Date: 12/20/22 Status: Ordered fluconazole 150 mg oral tablet 1 tablet = 150 mg, By Mouth, Once, For treatment of Yeast infection, repeat dose if still having symptoms in 72 hours, # 2 tablet, 0 Refills, Soft Stop, 12/19/23 10:58:00 EDT, Tablet, [facility] #[id number], Partial fill upon patient request if t... Start Date: 12/19/23 Status: Ordered gabapentin 300 mg oral capsule 300 mg, 1, capsule, By Mouth, 3 times a day, # 270 capsule, Refills 1, Tot. Refills 1, Maintenance,12/15/23 12:15:00 EDT, Route to Pharmacy Electronically, [facility] #[id number], Partial fill upon patient request, 170, cm, 11/26/23 7:18:00 EDT,... Start Date: 12/15/23 Status: Ordered gabapentin 300 mg oral capsule 300 mg, 1, capsule, By Mouth, 3 times a day, # 270 capsule, Refills 1, Tot. Refills 1, Maintenance,08/11/23 9:29:00 EDT, Route to Pharmacy Electronically, [facility] #[id number], Partial fill upon patient request, 170, cm, 07/23/23 16:32:00 EDT,... Start Date: 08/11/23 Status: Ordered hydroxychloroquine 200 mg oral tablet 1, tablet, By Mouth, 2 times a day, # 60 tablet, Refills 5, Tot. Refills 5, 12/25/23 9:59:00 EDT, Route to Pharmacy Electronically, [facility] #[id number], 170, cm, 12/19/23 10:38:00 EDT, Height, 100, kg, 10/09/23 2:02:00 EDT, Dry Weight Start Date: 12/25/23 Status: Ordered hydrOXYzine hydrochloride 25 mg oral tablet See Instructions, TAKE 1 TABLET BY MOUTH TWICE DAILY NEEDED FOR ANXIETY, # 60 tablet, 5 Refills,Maintenance, 09/18/23 10:13:00 EDT, [facility] #[id number], 170, cm, 07/23/23 16:32:00 EDT, Height, 100, kg, 04/20/23 21:48:00 EST, Dry Weight Start Date: 09/18/23 Status: Ordered NEBULIZER MACHINE AND TUBING NEBULIZER MACHINE AND TUBING, See Instructions, PRN Wheezing/Shortness of Breath, # 1 each, Refills0, Tot. Refills 0, Maintenance, USE NEEDED FOR WHEEZING DX:, 06/17/23 15:49:00 EST, Supply Start Date: 06/17/23 Status: Ordered NuLYTELY Lemon Match-[employer] oral powder for reconstitution 240 mL, By Mouth, Every 10 minutes, # 1 each, 0 Refills, Maintenance, 12/03/23 9:52:00 EDT, REC Powder, [facility] #[id number], Partial fill upon patient request if the prescription is for a schedule II opioid drug., 170, cm, 11/26/23 7:18:00 EDT... Start Date: 12/03/23 Status: Ordered PHENobarbital 30 mg oral tablet 1 tablet = 30 mg, By Mouth, 2 times a day, # 60 tablet, 1 Refills, Maintenance, 11/20/23 16:42:00 EDT, Tablet, [facility] #[id number], IF NOT COVERED, please use goodrx coupon and allow pt to pay OOP; $9.09; BIN [id number]; [facility]; [facility]; Membe... Start Date: 11/20/23 Status: Ordered PHENobarbital 30 mg oral tablet 1 tablet = 30 mg, By Mouth, 2 times a day, # 60 tablet, 1 Refills, Maintenance, 12/15/23 12:14:00 EDT, Tablet, [facility] #[id number], IF NOT COVERED, please use goodrx coupon and allow pt to pay OOP; $9.09; [facility]IN [id number]; [facility]; [facility] [address]; Mem[facility]... Start Date: 12/15/23 Status: Ordered risperiDONE 1 mg oral tablet 1 mg, 1, tablet, By Mouth, Daily, # 90 tablet, Refills 1, Tot. Refills 1, Maintenance, 08/11/23 9:29:00 EDT, Route to Pharmacy Electronically, [facility] #[id number], 170, cm, 07/23/23 16:32:00 EDT, Height, 100, kg, 04/20/23 21:48:00 EST, Dry Weight Start Date: 08/11/23 Stop Date: 02/07/24 Status: Ordered Suboxone 8 mg-2 mg Sublingual Film 3 film, Sublingual, Daily, or as directed, # 90 film, 0 Refills, Maintenance, 12/16/23 14:10:00 EDT, [facility] #[id number], Partial fill upon patient request if the prescription is for a schedule II opioid drug. [facility]VINA [id number], 3 film Sublingual... Start Date: 12/16/23 Stop Date: 01/15/24 Status: Ordered tiZANidine 2 mg oral tablet 2 mg, 1, tablet, By Mouth, 3 times a day, # 84 tablet, Refills 1, Tot. Refills 1, Maintenance, 12/26/23 9:21:00 EDT, Route to Pharmacy Electronically, [facility] #[id number], Partial fill upon patient request if the prescription is for a schedule... Start Date: 12/26/23 Stop Date: 02/20/24 Status: Ordered traZODone 50 mg oral tablet 50 mg, 1, tablet, By Mouth, Daily at bedtime, as needed for sleep, # 90 tablet, Refills 0, Tot. Refills 0, Maintenance, 12/15/23 12:16:00 EDT, Route to Pharmacy Electronically, [facility] #[id number], Partial fill upon patient request if the pres... Start Date: 12/15/23 Status: Ordered Trelegy Ellipta 200 mcg-62.5 mcg-25 mcg/inh inhalation powder 1 puffs, Inhalation, Daily, at the same time every day, # 3 each, 3 Refills, Maintenance, 07/23/23 16:56:00 EDT, Powder, [facility] #[id number], Partial fill upon patient request if the prescription is for a schedule II opioid drug., 1 puffs Inha... Start Date: 07/23/23 Stop Date: 07/17/24 Status: Ordered Ultram 50 mg oral tablet 1 tablet = 50 mg, By Mouth, Every 12 hours, PRN for pain, # 20 tablet, 0 Refills, Maintenance, 10/14/23 9:32:00 EDT, Tablet, [facility] #[id number], Partial fill upon patient request if the prescription is for a schedule II opioid drug., 170, cm,... Start Date: 10/14/23 Status: Ordered Ventolin HFA 108 mcg/inh inhalation aerosol with adapter 2 puffs, Inhalation, 4 times a day, PRN for wheezing, # 1 each, 3 Refills, Maintenance, 05/28/23 12:34:00 EST, Aerosol, [facility] #[id number], Partial fill upon patient request if the prescription is for a schedule II opioid drug., 170, cm, 04/04... Start Date: 05/28/23 Status: Ordered Voltaren Arthritis Pain 1% topical gel = 4 Gm, Topically, 4 times a day, # 480 Gm, 4 Refills, Maintenance, 07/24/23 14:31:00 EDT, [facility] #[id number], Partial fill upon patient request if the [...] Personnel Name: Roxi BROWN, Compa Hall Position: [facility] PCO Associate Professional Member Role: PCP Address: Address: [address] [place] [address] [place] [address]- Name: Blaire Iglesias [place] Position: [facility] Amb Office Staff Member Role: Primary Care Nurse Name: Rhiannon Li [place] Position: [facility] Amb Office Staff Member Role: Primary Care Nurse Name: Viral Jolly MD Position: [facility] Physician - Behavioral Health Member Role: Lifetime Consulting Physician Address: Address: [address] [place] [address] [place] [address]- Care Team Related Persons Name: MAIN MOSER Address: home [address] [place] [address] Name: JORGE GARCIA Address: [address] [place] [address] Name: LOREE SIFUENTES
--- OUTSIDE RECORDS SUMMARY | 2024-03-03 23:44 | XMS_ITS | Continuity of Care Document ---
Author Organization [facility] Address [address] [place] [address]- Care Team Providers Care Library Clerk Name Role Phone Angela BROWN, Robyn Martinez Primary Care Physician Encounter [facility] Date(s): 04/13/20 - 05/13/20 [facility] [address] [place] [address]- Allergies, Adverse Reactions, Alerts Substance Reaction Severity [...] mg sublingual film 2.5 FILMS, Sublingual, Daily, [id number], # 75 film, 1 Refills, Maintenance, 04/26/20 16:38:00 EST, [facility] #[id number], 2.5 FILMS Sublingual Daily,Instr:[id number], 163, cm, 04/26/20 14:26:00 EST, Height, 105, [...]
--- OUTSIDE RECORDS SUMMARY | 2024-03-03 23:44 | XMS_ITS | Continuity of Care Document ---
Author Organization [facility] Primary Car [facility] [place] Address [address] [place] [address]- Care Team Providers Care Tamping Machine Operator Name Role Phone Roxi BROWN, Compa Hall Primary Care Physician Encounter [facility] Date(s): 10/14/23 - 11/13/23 [facility] [place] [address] [place] [address]- Allergies, Adverse Reactions, Alerts No Known Allergies [...] 11 Refills, Maintenance, 03/25/23 12:53:00 EST, Solution, [facility] #[id number], 3 mL Inhalation 4 times a da... Start Date: 03/25/23 Status: Ordered Breo Ellipta 100 mcg-25 mcg/inh inhalation powder 1 puffs, Inhalation, Daily, RIN[employer] AFTERWARDS., # 1 each, 3 Refills, 11/21/22 10:33:00 EDT, [facility] #[id number], 1 puffs Inhalation Daily,Instr:RINSE MOUTH AFTERWARDS., 170, cm, 11/19/2313:19:00 EDT, Height, 94.4, kg, 11/08/22 14:35:00 E... Start Date: 11/21/22 Status: Ordered calcium (as citrate)-vitamin D 315 mg-250 intl units oral tablet 2 tablet, By Mouth, 2 times a day, # 120 tablet, 11 Refills, Maintenance, 10/27/23 11:47:00 EDT, Tablet, [facility] #[id number], Partial fill upon patient request if the [...] 09/18/23 10:13:00 EDT, Route to Pharmacy Electronically, [facility] #[id number], Partial... Start Date: 09/18/23 Stop Date: 03/16/24 Status: Ordered duloxetine 30 mg oral enteric coated capsule 1 capsule = 30 mg, By Mouth, 2 times a day, do not crush or chew, # 180 capsule, 3 Refills, Maintenance, 12/20/22 17:50:00 EDT, [facility] #[id number], 170, cm, 12/06/22 0:43:00 EDT, Height, 94.4, kg, 11/08/22 14:35:00 EDT, Dry Weight Start Date: 12/20/22 Status: Ordered gabapentin 300 mg oral capsule 300 mg, 1, capsule, By Mouth, 3 times a day, # 270 capsule, Refills 1, Tot. Refills 1, Maintenance,08/11/23 9:29:00 EDT, Route to Pharmacy Electronically, [facility] #[id number], Partial fill upon patient request, 170, cm, 07/23/23 16:32:00 EDT,... Start Date: 08/11/23 Status: Ordered hydroxychloroquine 200 mg oral tablet 1, tablet, By Mouth, 2 times a day, # 60 tablet, Refills 5, Tot. Refills 5, 04/15/23 13:55:00 EST, Route to Pharmacy Electronically, [facility] #[id number], 170, cm, 01/31/23 10:06:00 EDT, Height, 94.4, kg, 11/08/22 14:35:00 EDT, Dry Weight Start Date: 04/15/23 Status: Ordered hydrOXYzine hydrochloride 25 mg oral tablet See Instructions, TAKE 1 TABLET BY MOUTH TWICE DAILY NEEDED FOR ANXIETY, # 60 tablet, 5 Refills,Maintenance, 09/18/23 10:13:00 EDT, [facility] #[id number], 170, cm, 07/23/23 16:32:00 EDT, Height, 100, [...] 12:02:00 EDT, 11/11/23 12:02:00 EDT, Ophth Solution, [facility] #[id number], Partial fill upon patient request if the prescription is for a schedule II opioid drug... Start Date: 11/11/23 Stop Date: 11/18/23 Status: Ordered risperiDONE 1 mg oral tablet 1 mg, 1, tablet, By Mouth, Daily, # 90 tablet, Refills 1, Tot. Refills 1, Maintenance, 08/11/23 9:29:00 EDT, Route to Pharmacy Electronically, [facility] #[id number], 170, cm, 07/23/23 16:32:00 EDT, Height, 100, kg, 04/20/23 21:48:00 EST, Dry Weight Start Date: 08/11/23 Stop Date: 02/07/24 Status: Ordered Suboxone 8 mg-2 mg Sublingual Film 1 film, Sublingual, 3 times a day, for 14 days, dissolve under the tongue, # 42 film, 0 Refills, Hard Stop 11/25/23 9:01:00 EDT, 11/11/23 9:01:00 EDT, [facility] #[id number], Partial fill upon patient request if the prescription is for a schedule... Start Date: 11/11/23 Stop Date: 11/25/23 Status: Ordered tiZANidine 2 mg oral tablet 2 mg, 1, tablet, By Mouth, 3 times a day, # 84 tablet, Refills 1, Tot. Refills 1, Maintenance, 09/08/23 18:10:00 EDT, Route to Pharmacy Electronically, [facility] #[id number], Partial fill upon patient request if the prescription is for a schedul... Start Date: 09/08/23 Stop Date: 11/03/23 Status: Ordered Trelegy Ellipta 200 mcg-62.5 mcg-25 mcg/inh inhalation powder 1 puffs, Inhalation, Daily, at the same time every day, # 3 each, 3 Refills, Maintenance, 07/23/23 16:56:00 EDT, Powder, [facility] #[id number], Partial fill upon patient request if the prescription is for a schedule II opioid drug., 1 puffs Inha... Start Date: 07/23/23 Stop Date: 07/17/24 Status: Ordered Ultram 50 mg oral tablet 1 tablet = 50 mg, By Mouth, Every 12 hours, PRN for pain, # 20 tablet, 0 Refills, Maintenance, 10/14/23 9:32:00 EDT, Tablet, [facility] #[id number], Partial fill upon patient request if the prescription is for a schedule II opioid drug., 170, cm,... Start Date: 10/14/23 Status: Ordered Ventolin HFA 108 mcg/inh inhalation aerosol with adapter 2 puffs, Inhalation, 4 times a day, PRN for wheezing, # 1 each, 3 Refills, Maintenance, 05/28/23 12:34:00 EST, Aerosol, [facility] #[id number], Partial fill upon patient request if the prescription is for a schedule II opioid drug., 170, cm, 04/04... Start Date: 05/28/23 Status: Ordered Voltaren Arthritis Pain 1% topical gel = 4 Gm, Topically, 4 times a day, # 480 Gm, 4 Refills, Maintenance, 07/24/23 14:31:00 EDT, [facility] #[id number], Partial fill upon patient request if the prescription is for a schedule II opioid drug., 4 Gm Topically 4 times a day, 170, cm, ... Start Date: 07/24/23 Status: Ordered [facility] PAIN RELIEVING LIDOCAINE PATCH 4% [place] PAIN RELIEVING LIDOCAINE PATCH 4%, See Instructions, [...] Personnel Name: Roxi BROWN, Compa Hall Position: [facility] PCO Associate Professional Member Role: PCP Address: Address: [address] [facility] [place] [address]- [place] Name: Blaire Iglesias [place] Position: [facility] Amb Office Staff Member Role: Primary Care Nurse Name: Rhiannon Li [place] Position: [facility] Office Staff Member Role: Primary Care Nurse Name: Viral Jolly MD Position: [facility] Physician - Behavioral Health Member Role: Lifetime Consulting Physician Address: Address: [address] [place] [address]- Care Team Related Persons Name: MAIN MOSER Address: home [address] [place] [address] Name: JORGE GARCIA Address: home [address] [place] [address] Name: LOREE SIFUENTES
--- OUTSIDE RECORDS SUMMARY | 2024-03-03 23:44 | XMS_ITS | Continuity of Care Document ---
Author Organization [facility] Address [address] [place] [address]- Care Team Providers Care Test Engine Mechanic Name Role Phone Robyn Miller NP Primary Care Physician [place] [facility] [place]16[place] - 08/23/19 [facility] [address] [place] [address]- [facility] Encounter Diagnosis ONI (obstructive sleep apnea)(Discharge Diagnosis) - 08/16/19 Attending Physician: Susan BROWN, Maricel Webb Admitting [...] Diagnosis Diagnosis Type Effective Dates Health Status Cl inical Service Informant ONI (obstructive sleep apnea) Discharge Diagnosis 08/16/19 Social History Social History Type Response Smoking Status Current every day antony gomez entered on: 09/29/14 Sex
--- OUTSIDE RECORDS SUMMARY | 2024-03-03 23:44 | XMS_ITS | Continuity of Care Document ---
Author Organization [facility] Address [address] [place] [address]- Care Team Providers Care Gluer And Wedger Name Role Phone Angela BROWN, Robyn Martinez Primary Care Physician Encounter [facility] Date(s): 12/13/19 - 01/12/20 [facility] [address] [place] [address]- [facility] Allergies, Adverse Reactions, Alerts Substance Reaction [...]
--- OUTSIDE RECORDS SUMMARY | 2024-03-03 23:44 | XMS_ITS | Continuity of Care Document ---
Author Organization [facility] Primary Car e [place] Address [address] [place] [address]- Care Team Providers Care Envelope Stamping Machine Operator Name Role Phone Roxi BROWN, Compa Hall Primary Care Physician Encounter [facility] Date(s): 09/04/23 - 10/04/23 [facility] [place] [address] [place] [address]- Allergies, Adverse Reactions, Alerts No Known Allergies Immunizations Given and Recorded Vaccine Date Status Refusal Reason SARS-CoV-2 (COVID-19) mRNA BNT-162b2 vac 09/08/20 Recorded SARS-CoV-2 (COVID-19) mRNA BNT-162f7 vac 08/18/20 Recorded pneumococcal 23-valent vaccine 10/21/16 [...] 11 Refills, Maintenance, 03/25/23 12:53:00 EST, Solution, [facility] #[id number], 3 mL Inhalation 4 times a da... Start Date: 03/25/23 Status: Ordered Breo Ellipta 100 mcg-25 mcg/inh inhalation powder 1 puffs, Inhalation, Daily, [employer]WARDS., # 1 each, 3 Refills, 11/21/22 10:33:00 EDT, [facility] #[id number], 1 puffs Inhalation Daily,Instr:RIN[employer] MOU[employer] AFTERWARDS., 170, cm, 11/19/2313:19:00 EDT, Height, 94.4, kg, 11/08/22 14:35:00 E... Start Date: 11/21/22 Status: Ordered cloNIDine 0.1 mg oral tablet 0.05 mg, 0.5, tablet, By Mouth, 4 times a day, PRN, stay hydrated, # 120 tablet, Refills 5, Tot. Refills 5, Maintenance, anxiety, panic, withdrawal symptoms, 09/18/23 10:13:00 EDT, Route to Pharmacy Electronically, [facility] #[id number], Partial... Start Date: 09/18/23 Stop Date: 03/16/24 Status: Ordered duloxetine 30 mg oral enteric coated capsule 1 capsule = 30 mg, By Mouth, 2 times a day, do not crush or chew, # 180 capsule, 3 Refills, Maintenance, 12/20/22 17:50:00 EDT, [facility] #[id number], 170, cm, 12/06/22 0:43:00 EDT, Height, 94.4, kg, 11/08/22 14:35:00 EDT, Dry Weight Start Date: 12/20/22 Status: Ordered gabapentin 300 mg oral capsule 300 mg, 1, capsule, By Mouth, 3 times a day, # 270 capsule, Refills 1, Tot. Refills 1, Maintenance,08/11/23 9:29:00 EDT, Route to Pharmacy Electronically, [facility] #[id number], Partial fill upon patient request, 170, cm, 07/23/23 16:32:00 EDT,... Start Date: 08/11/23 Status: Ordered hydroxychloroquine 200 mg oral tablet 1, tablet, By Mouth, 2 times a day, # 60 tablet, Refills 5, Tot. Refills 5, 04/15/23 13:55:00 EST, Route to Pharmacy Electronically, [facility] #[id number], 170, cm, 01/31/23 10:06:00 EDT, Height, 94.4, kg, 11/08/22 14:35:00 EDT, Dry Weight Start Date: 04/15/23 Status: Ordered hydrOXYzine hydrochloride 25 mg oral tablet See Instructions, TAKE 1 TABLET BY MOUTH TWICE DAILY NEEDED FOR ANXIETY, # 60 tablet, 5 Refills,Maintenance, 09/18/23 10:13:00 EDT, [facility] #[id number], 170, cm, 07/23/23 16:32:00 EDT, Height, 100, [...] 08/11/23 9:29:00 EDT, Route to Pharmacy Electronically, [facility] #[id number], 170, cm, 07/23/23 16:32:00 EDT, Height, 100, kg, 04/20/23 21:48:00 EST, Dry Weight Start Date: 08/11/23 Stop Date: 02/07/24 Status: Ordered Suboxone 8 mg-2 mg Sublingual Film 1 film, Sublingual, 3 times a day, dissolve under the tongue, # 90 film, 1 Refills, Maintenance, 09/12/23 9:01:00 EDT, [facility] #[id number], Partial fill upon patient request if the prescription is for a schedule II opioid drug. ALVINA [id number];... Start Date: 09/12/23 Stop Date: 11/11/23 Status: Ordered tiZANidine 2 mg oral tablet 2 mg, 1, tablet, By Mouth, 3 times a day, # 84 tablet, Refills 1, Tot. Refills 1, Maintenance, 09/08/23 18:10:00 EDT, Route to Pharmacy Electronically, [facility] #[id number], Partial fill upon patient request if the prescription is for a schedul... Start Date: 09/08/23 Stop Date: 11/03/23 Status: Ordered Trelegy Ellipta 200 mcg-62.5 mcg-25 mcg/inh inhalation powder 1 puffs, Inhalation, Daily, at the same time every day, # 3 each, 3 Refills, Maintenance, 07/23/23 16:56:00 EDT, Powder, [facility] #[id number], Partial fill upon patient request if the prescription is for a schedule II opioid drug., 1 puffs Inha... Start Date: 07/23/23 Stop Date: 07/17/24 Status: Ordered Ventolin HFA 108 mcg/inh inhalation aerosol with adapter 2 puffs, Inhalation, 4 times a day, PRN for wheezing, # 1 each, 3 Refills, Maintenance, 05/28/23 12:34:00 EST, Aerosol, [facility] #[id number], Partial fill upon patient request if the prescription is for a schedule II opioid drug., 170, cm, 04/04... Start Date: 05/28/23 Status: Ordered Voltaren Arthritis Pain 1% topical gel = 4 Gm, Topically, 4 times a day, # 480 Gm, 4 Refills, Maintenance, 07/24/23 14:31:00 EDT, [facility] #[id number], Partial fill upon patient request if the [...] Team Personnel Name: Compa Diane NP Position: [facility] PCO Associate Professional Member Role: PCP Address: Address: [address] [facility] [place] [address]- Name: Blaire Iglesias [place] Position: [facility] Office Staff Member Role: Primary Care Nurse Name: Rhiannon Li [place] Position: [facility] Office Staff Member Role: Primary Care Nurse Name: Viral Jolly MD Position: [facility] Physician - Behavioral Health Member Role: Lifetime Consulting Physician Address: Address: [address] [place] [address]- Care Team Related Persons Name: MAIN MOSER Address: home [address] [place] [address] Name: JORGE GARCIA Address: [address] [place] [address] Name: LOREE SIFUENTES
--- OUTSIDE RECORDS SUMMARY | 2024-03-03 23:44 | XMS_ITS | Continuity of Care Document ---
Author Organization [facility] Primary Car e [place] Address [address] [place] [address]- Care Team Providers Care Environmental Education Specialist Name Role Phone Fine STEPHANIE, Compa Hall Primary Care Physician Encounter [facility] Date(s): 12/26/22 - 02/15/23 [facility] [place] [address] [place] [address]- Attending Physician: Sushila KU, Jcarlos Bell Allergies, [...] 1 each, 3 Refills, 11/21/22 10:33:00 EDT, [facility] #[id number], 1 puffs Inhalation Daily,Instr:RINSE MOUTH AFTERWARDS., 170, cm, 11/19/2313:19:00 EDT, Height, 94.4, kg, 11/08/22 14:35:00 E... Start Date: 11/21/22 Status: Ordered cloNIDine 0.1 mg oral tablet 0.05 mg, 0.5, tablet, By Mouth, 4 times a day, PRN, stay hydrated, # 60 tablet, Refills 1, Tot. Refills 1, Maintenance, anxiety, panic, withdrawal symptoms, 02/12/23 10:37:00 EDT, Route to Pharmacy Electronically, [facility] #[id number], Partial... Start Date: 02/12/23 Status: Ordered duloxetine 30 mg oral enteric coated capsule 1 capsule = 30 mg, By Mouth, 2 times a day, do not crush or chew, # 180 capsule, 3 Refills, Maintenance, 12/20/22 17:50:00 EDT, [facility] #[id number], 170, cm, 12/06/22 0:43:00 EDT, Height, 94.4, kg, 11/08/22 14:35:00 EDT, Dry Weight Start Date: 12/20/22 Status: Ordered famotidine 20 mg oral tablet 20 mg, 1, tablet, By Mouth, Daily, OV 5-6-20, # 30 tablet, Refills 5, Tot. Refills 5, Maintenance, 08/21/20 12:25:00 EDT, Route to Pharmacy Electronically, [facility]/pharmacy #[id number], 170, cm, 08/16/20 15:32:00 EDT, Height, 107.3, kg, 06/22/20 13:29:00 EST, D... Start Date: 08/21/20 Status: Ordered gabapentin 300 mg oral capsule 300 mg, 1, capsule, By Mouth, 3 times a day, # 270 capsule, Refills 1, Tot. Refills 1, Maintenance,02/12/23 10:36:00 EDT, Route to Pharmacy Electronically, [facility] #[id number], Partial fill upon patient request, 170, cm, 01/31/23 10:06:00 EDT... Start Date: 02/12/23 Status: Ordered hydroxychloroquine 200 mg oral tablet 1, tablet, By Mouth, 2 times a day, # 60 tablet, Refills 5, Tot. Refills 5, 05/16/22 16:23:00 EST, Route to Pharmacy Electronically, [facility] #[id number], 175, cm, 05/01/22 15:32:00 EST, Height, 75, kg, 05/01/22 15:32:00 EST, Dry Weight Start Date: 05/16/22 Status: Ordered hydrOXYzine hydrochloride 25 mg oral tablet 1 tablet = 25 mg, By Mouth, Daily, PRN anxiety, for 30 days, # 30 tablet, 3 Refills, Acute 06/12/2409:37:00 EST, 02/12/23 10:37:00 EDT, Tablet, [facility] #[id number], Partial fill upon patientrequest if the prescription is for a schedule II op... Start Date: 02/12/23 Stop Date: 06/12/23 Status: Ordered ProAir HFA 90 mcg/inh inhalation aerosol 2 puffs, Inhalation, Every 4 to 6 hours, PRN NEEDED FOR SHORTNESS OF BREATH OR WHEEZING, # 18 Gm, 5 Refills, 02/04/23 10:36:00 EDT, [facility] #[id number], 2 puffs Inhalation Every 4 to 6 hours,PRN: NEEDED FOR SHORTNESS OF BREATH OR WHEEZING... Start Date: 02/04/23 Status: Ordered risperiDONE 1 mg oral tablet 1 mg, 1, tablet, By Mouth, Daily, # 90 tablet, Refills 1, Tot. Refills 1, Maintenance, 02/12/23 10:37:00 EDT, Route to Pharmacy Electronically, [facility] #[id number], 170, cm, 01/31/23 10:06:00EDT, Height, 94.4, kg, [...] film, 1 Refills, Maintenance, 01/13/23 10:32:00 EDT, [facility] #[id number], Partial fill upon patient request if the prescription is for a schedule II opioid drug. [facility] [id number];... Start Date: 01/13/23 Stop Date: 03/14/23 Status: [...] Team Personnel Name: Compa Diane NP Position: [facility] PCO Associate Professional Member Role: PCP Address: Address: [address] [place] [address]- Name: Blaire Iglesias [place] Position: [facility] RN Member Role: Primary Care Nurse Name: Rhiannon Gibson Position: [facility] RN Member Role: Primary Care Nurse Name: Viral Jolly MD Position: [facility] Physician - Behavioral Health Member Role: Lifetime Consulting Physician Address: Address: [address] [place] [address]- Care Team Related Persons Name: MAIN MOSER Address: home [address] [place] [address] Name: JORGE GARCIA Address: home [address] [place] [address] Name: LOREE SIFUENTES
--- OUTSIDE RECORDS SUMMARY | 2024-03-03 23:44 | XMS_ITS | Continuity of Care Document ---
Author Organization [facility] Address [address] [place] [address]- Care Team Providers Care Package Center Supervisor Name Role Phone Angela BROWN, Robyn Martinez Primary Care Physician [place] [facility] [place] 08/16/19 - 08/26/19 [facility] [address] [place] [address] [facility] Attending Physician: Maddie Jones Admitting Physician: [...]
--- OUTSIDE RECORDS SUMMARY | 2024-03-03 23:44 | XMS_ITS | Continuity of Care Document ---
Author Organization [facility] Address [address] [place] [address]- Care Team Providers Care Field Investigator Name Role Phone Robyn Miller NP Primary Care Physician Encounter [facility] Date(s): 07/31/20 - 09/14/[address] [address] [phone] Attending Physician: Robyn Miller NP Admitting Physician: [...] Unknown, 11 Refills, Maintenance, 06/19/20 16:07:00 EST, [id number], 20, INHALE 2 PUFFS BY MOUTH EVERY 4 TO 6 HOURS NEEDED FOR WHEEZE FOR SHORTNESS... Start Date: 06/19/20 Status: Ordered Suboxone 8 mg-2 mg sublingual film 2.5 FILMS, Sublingual, Daily, [id number], # 75 film, 1 Refills, Maintenance, 04/26/20 16:38:00 EST, [facility] #[id number], 2.5 FILMS Sublingual Daily,Instr:[id number], 163, cm, 04/26/20 14:26:00 EST, Height, 105, [...]
--- OUTSIDE RECORDS SUMMARY | 2024-03-03 23:44 | XMS_ITS | Continuity of Care Document ---
Author Organization [facility] Address [address] [place] [address]- Care Team Providers Care Splunk Dashboard Developer Name Role Phone Fine BATCH DUMPER, Compa Hall Primary Care Physician Encounter [facility] Date(s): 12/29/23 - 01/31/24 [facility] [address] [place] [address]- Attending Physician: Eder Conrad MD Allergies, Adverse [...] 11 Refills, Maintenance, 03/25/23 12:53:00 EST, Solution, [facility] #[id number], 3 mL Inhalation 4 times a da... Start Date: 03/25/23 Status: Ordered Breo Ellipta 100 mcg-25 mcg/inh inhalation powder 1 puffs, Inhalation, Daily, RIN[employer]OU[employer] AFTERWARDS., # 1 each, 3 Refills, 11/21/22 10:33:00 EDT, [facility] #[id number], 1 puffs Inhalation Daily,Instr:RINSE MOUTH AFTERWARDS., 170, cm, 11/19/2313:19:00 EDT, Height, 94.4, kg, 11/08/22 14:35:00 E... Start Date: 11/21/22 Status: Ordered calcium (as citrate)-vitamin D 315 mg-250 intl units oral tablet 2 tablet, By Mouth, 2 times a day, # 120 tablet, 11 Refills, Maintenance, 10/27/23 11:47:00 EDT, Tablet, [facility] #[id number], Partial fill upon patient request if the [...] 09/18/23 10:13:00 EDT, Route to Pharmacy Electronically, [facility] #[id number], Partial... Start Date: 09/18/23 Stop Date: 03/16/24 Status: Ordered duloxetine 30 mg oral enteric coated capsule 1 capsule = 30 mg, By Mouth, 2 times a day, do not crush or chew, # 180 capsule, 3 Refills, Maintenance, 12/15/23 12:15:00 EDT, [facility] #[id number], 170, cm, 11/26/23 7:18:00 EDT, Height, 100, kg, 10/09/23 2:02:00 EDT, Dry Weight Start Date: 12/15/23 Status: Ordered duloxetine 30 mg oral enteric coated capsule 1 capsule = 30 mg, By Mouth, 2 times a day, do not crush or chew, # 180 capsule, 3 Refills, Maintenance, 12/20/22 17:50:00 EDT, [facility] #[id number], 170, cm, 12/06/22 0:43:00 EDT, Height, 94.4, kg, 11/08/22 14:35:00 EDT, Dry Weight Start Date: 12/20/22 Status: Ordered fluconazole 150 mg oral tablet 1 tablet = 150 mg, By Mouth, Once, For treatment of Yeast infection, repeat dose if still having symptoms in 72 hours, # 2 tablet, 0 Refills, Soft Stop, 12/19/23 10:58:00 EDT, Tablet, [facility] #[id number], Partial fill upon patient request if t... Start Date: 12/19/23 Status: Ordered gabapentin 300 mg oral capsule 300 mg, 1, capsule, By Mouth, 3 times a day, # 270 capsule, Refills 1, Tot. Refills 1, Maintenance,12/15/23 12:15:00 EDT, Route to Pharmacy Electronically, [facility] #[id number], Partial fill upon patient request, 170, cm, 11/26/23 7:18:00 EDT,... Start Date: 12/15/23 Status: Ordered gabapentin 300 mg oral capsule 300 mg, 1, capsule, By Mouth, 3 times a day, # 270 capsule, Refills 1, Tot. Refills 1, Maintenance,08/11/23 9:29:00 EDT, Route to Pharmacy Electronically, [facility] #[id number], Partial fill upon patient request, 170, cm, 07/23/23 16:32:00 EDT,... Start Date: 08/11/23 Status: Ordered hydroxychloroquine 200 mg oral tablet 1, tablet, By Mouth, 2 times a day, # 60 tablet, Refills 5, Tot. Refills 5, 12/25/23 9:59:00 EDT, Route to Pharmacy Electronically, [facility] #[id number], 170, cm, 12/19/23 10:38:00 EDT, Height, 100, kg, 10/09/23 2:02:00 EDT, Dry Weight Start Date: 12/25/23 Status: Ordered hydrOXYzine hydrochloride 25 mg oral tablet See Instructions, TAKE 1 TABLET BY MOUTH TWICE DAILY NEEDED FOR ANXIETY, # 60 tablet, 5 Refills,Maintenance, 09/18/23 10:13:00 EDT, [facility] #[id number], 170, cm, 07/23/23 16:32:00 EDT, Height, 100, kg, 04/20/23 21:48:00 EST, Dry Weight Start Date: 09/18/23 Status: Ordered NEBULIZER MACHINE AND TUBING NEBULIZER MACHINE AND TUBING, See Instructions, PRN Wheezing/Shortness of Breath, # 1 each, Refills0, Tot. Refills 0, Maintenance, USE NEEDED FOR WHEEZING DX:, 06/17/23 15:49:00 EST, Supply Start Date: 06/17/23 Status: Ordered NuLYTELY Lemon [place] oral powder for reconstitution 240 mL, By Mouth, Every 10 minutes, # 1 each, 0 Refills, Maintenance, 12/03/23 9:52:00 EDT, REC Powder, [facility] #[id number], Partial fill upon patient request if the prescription is for a schedule II opioid drug., 170, cm, 11/26/23 7:18:00 EDT... Start Date: 12/03/23 Status: Ordered PHENobarbital 30 mg oral tablet 1 tablet = 30 mg, By Mouth, 2 times a day, # 60 tablet, 1 Refills, Maintenance, 11/20/23 16:42:00 EDT, Tablet, [facility] #[id number], IF NOT COVERED, please use goodrx coupon and allow pt to pay OOP; $9.09; BIN [id number]; [facility]; Group [address]; Membe... Start Date: 11/20/23 Status: Ordered PHENobarbital 30 mg oral tablet 1 tablet = 30 mg, By Mouth, 2 times a day, # 60 tablet, 1 Refills, Maintenance, 12/15/23 12:14:00 EDT, Tablet, [facility] #[id number], IF NOT COVERED, please use goodrx coupon and allow pt to pay OOP; $9.09; BIN [id number]; [facility]; [address]; Membe... Start Date: 12/15/23 Status: Ordered risperiDONE 1 mg oral tablet 1 mg, 1, tablet, By Mouth, Daily, # 90 tablet, Refills 1, Tot. Refills 1, Maintenance, 08/11/23 9:29:00 EDT, Route to Pharmacy Electronically, [facility] #[id number], 170, cm, 07/23/23 16:32:00 EDT, Height, 100, kg, 04/20/23 21:48:00 EST, Dry Weight Start Date: 08/11/23 Stop Date: 02/07/24 Status: Ordered Suboxone 8 mg-2 mg Sublingual Film 3 film, Sublingual, Daily, or as directed, # 90 film, 0 Refills, Maintenance, 12/16/23 14:10:00 EDT, [facility] #[id number], Partial fill upon patient request if the prescription is for a schedule II opioid drug. ALVINA [id number], 3 film Sublingual... Start Date: 12/16/23 Stop Date: 01/15/24 Status: Ordered tiZANidine 2 mg oral tablet 2 mg, 1, tablet, By Mouth, 3 times a day, # 84 tablet, Refills 1, Tot. Refills 1, Maintenance, 12/26/23 9:21:00 EDT, Route to Pharmacy Electronically, [facility] #[id number], Partial fill upon patient request if the prescription is for a schedule... Start Date: 12/26/23 Stop Date: 02/20/24 Status: Ordered traZODone 50 mg oral tablet 50 mg, 1, tablet, By Mouth, Daily at bedtime, as needed for sleep, # 90 tablet, Refills 0, Tot. Refills 0, Maintenance, 12/15/23 12:16:00 EDT, Route to Pharmacy Electronically, [facility] #[id number], Partial fill upon patient request if the pres... Start Date: 12/15/23 Status: Ordered Trelegy Ellipta 200 mcg-62.5 mcg-25 mcg/inh inhalation powder 1 puffs, Inhalation, Daily, at the same time every day, # 3 each, 3 Refills, Maintenance, 07/23/23 16:56:00 EDT, Powder, [facility] #[id number], Partial fill upon patient request if the prescription is for a schedule II opioid drug., 1 puffs Inha... Start Date: 07/23/23 Stop Date: 07/17/24 Status: Ordered Ultram 50 mg oral tablet 1 tablet = 50 mg, By Mouth, Every 12 hours, PRN for pain, # 20 tablet, 0 Refills, Maintenance, 10/14/23 9:32:00 EDT, Tablet, [facility] #[id number], Partial fill upon patient request if the prescription is for a schedule II opioid drug., 170, cm,... Start Date: 10/14/23 Status: Ordered Ventolin HFA 108 mcg/inh inhalation aerosol with adapter 2 puffs, Inhalation, 4 times a day, PRN for wheezing, # 1 each, 3 Refills, Maintenance, 05/28/23 12:34:00 EST, Aerosol, [facility] #[id number], Partial fill upon patient request if the prescription is for a schedule II opioid drug., 170, cm, 04/04... Start Date: 05/28/23 Status: Ordered Voltaren Arthritis Pain 1% topical gel = 4 Gm, Topically, 4 times a day, # 480 Gm, 4 Refills, Maintenance, 07/24/23 14:31:00 EDT, [facility] #[id number], Partial fill upon patient request if the [...] Personnel Name: Roxi BROWN, Compa Hall Position: [facility] PCO Associate Professional Member Role: PCP Address: Address: [address] [place] [address] [place] [address]- Name: Blaire Iglesias [place] Position: [facility] Amb Office Staff Member Role: Primary Care Nurse Name: Rhiannon Li [place] Position: [facility] Amb Office Staff Member Role: Primary Care Nurse Name: Viral Jolly MD Position: [facility] Physician - Behavioral Health Member Role: Lifetime Consulting Physician Address: Address: [address] [place] [address] [place] [address]- Care Team Related Persons Name: MAIN MOSER Address: home [address] [place] [address] Name: JORGE GARCIA Address: home [address] [place] [address] Name: LOREE SIFUENTES
--- OUTSIDE RECORDS SUMMARY | 2024-03-03 23:44 | XMS_ITS | Continuity of Care Document ---
Author Organization [facility] Address [address] [place] [address] [place] [address]- Care Team Providers Care Stage Electrician Helper Name Role Phone Fine SCANNING TECH, Compa Hall Primary Care Physician Encounter [facility] Date(s): 08/11/23 - 09/10/23 [facility] [address] [address] Attending Physician: Maddie Jones Admitting Physician: AdmtrMaddie [...] 11 Refills, Maintenance, 03/25/23 12:53:00 EST, Solution, [facility] #[id number], 3 mL Inhalation 4 times a da... Start Date: 03/25/23 Status: Ordered Breo Ellipta 100 mcg-25 mcg/inh inhalation powder 1 puffs, Inhalation, Daily, [employer] AFTERWARDS., # 1 each, 3 Refills, 11/21/22 10:33:00 EDT, [facility] #[id number], 1 puffs Inhalation Daily,Instr:RINSE MOUTH AFTERWARDS., 170, cm, 11/19/2313:19:00 EDT, Height, 94.4, kg, 11/08/22 14:35:00 E... Start Date: 11/21/22 Status: Ordered cloNIDine 0.1 mg oral tablet 0.05 mg, 0.5, tablet, By Mouth, 4 times a day, PRN, stay hydrated, # 120 tablet, Refills 0, Tot. Refills 0, Maintenance, anxiety, panic, withdrawal symptoms, 08/11/23 9:29:00 EDT, Route to Pharmacy Electronically, [facility] #[id number], Partial... Start Date: 08/11/23 Stop Date: 09/10/23 Status: Ordered duloxetine 30 mg oral enteric coated capsule 1 capsule = 30 mg, By Mouth, 2 times a day, do not crush or chew, # 180 capsule, 3 Refills, Maintenance, 12/20/22 17:50:00 EDT, [facility] #[id number], 170, cm, 12/06/22 0:43:00 EDT, Height, 94.4, kg, 11/08/22 14:35:00 EDT, Dry Weight Start Date: 12/20/22 Status: Ordered gabapentin 300 mg oral capsule 300 mg, 1, capsule, By Mouth, 3 times a day, # 270 capsule, Refills 1, Tot. Refills 1, Maintenance,08/11/23 9:29:00 EDT, Route to Pharmacy Electronically, [facility] #[id number], Partial fill upon patient request, 170, cm, 07/23/23 16:32:00 EDT,... Start Date: 08/11/23 Status: Ordered hydroxychloroquine 200 mg oral tablet 1, tablet, By Mouth, 2 times a day, # 60 tablet, Refills 5, Tot. Refills 5, 04/15/23 13:55:00 EST, Route to Pharmacy Electronically, [facility] #[id number], 170, cm, 01/31/23 10:06:00 EDT, Height, 94.4, [...] 1 Refills, Maintenance, 08/11/23 9:31:00 EDT, Tablet, [facility] #[id number], IF NOT COVERED, please use Embark coupon and allow pt to payOOP; $9.09; ASHLEY [id number]; [facility]; Group [address]; Member... Start Date: 08/11/23 Status: Ordered risperiDONE 1 mg oral tablet 1 mg, 1, tablet, By Mouth, Daily, # 90 tablet, Refills 1, Tot. Refills 1, Maintenance, 08/11/23 9:29:00 EDT, Route to Pharmacy Electronically, [facility] #[id number], 170, cm, 07/23/23 16:32:00 EDT, Height, 100, kg, 04/20/23 21:48:00 EST, Dry Weight Start Date: 08/11/23 Stop Date: 02/07/24 Status: Ordered Suboxone 8 mg-2 mg Sublingual Film 1 film, Sublingual, 3 times a day, dissolve under the tongue, # 90 film, 1 Refills, Maintenance, 07/13/23 11:49:00 EDT, [facility] #[id number], Partial fill upon patient request if the prescription is for a schedule II opioid drug. ALVINA [id number];... Start Date: 07/13/23 Stop Date: 09/11/23 Status: Ordered tiZANidine 2 mg oral tablet 2 mg, 1, tablet, By Mouth, 3 times a day, # 84 tablet, Refills 1, Tot. Refills 1, Maintenance, 09/08/23 18:10:00 EDT, Route to Pharmacy Electronically, [facility] #[id number], Partial fill upon patient request if the prescription is for a schedul... Start Date: 09/08/23 Stop Date: 11/03/23 Status: Ordered Trelegy Ellipta 200 mcg-62.5 mcg-25 mcg/inh inhalation powder 1 puffs, Inhalation, Daily, at the same time every day, # 3 each, 3 Refills, Maintenance, 07/23/23 16:56:00 EDT, Powder, [facility] #[id number], Partial fill upon patient request if the prescription is for a schedule II opioid drug., 1 puffs Inha... Start Date: 07/23/23 Stop Date: 07/17/24 Status: Ordered Ventolin HFA 108 mcg/inh inhalation aerosol with adapter 2 puffs, Inhalation, 4 times a day, PRN for wheezing, # 1 each, 3 Refills, Maintenance, 05/28/23 12:34:00 EST, Aerosol, [facility] #[id number], Partial fill upon patient request if the prescription is for a schedule II opioid drug., 170, cm, 04/04... Start Date: 05/28/23 Status: Ordered Voltaren Arthritis Pain 1% topical gel = 4 Gm, Topically, 4 times a day, # 480 Gm, 4 Refills, Maintenance, 07/24/23 14:31:00 EDT, [facility] #[id number], Partial fill upon patient request if the [...] Team Personnel Name: Compa Diane NP Position: [facility] PCO Associate Professional Member Role: PCP Address: Address: [address] [facility] [place] [address]- Name: Blaire Iglesias [place] Position: [facility] RN Member Role: Primary Care Nurse Name: Rhiannon Gibson Position: [facility] RN Member Role: Primary Care Nurse Name: Viral Jolly MD Position: [facility] Physician - Behavioral Health Member Role: Lifetime Consulting Physician Address: Address: [address] [place] [address]- Care Team Related Persons Name: MAIN MOSER Address: home [address] [place] [address] Name: JORGE GARCIA Address: [address] [place] [address] Name: LOREE SIFUENTES
--- OUTSIDE RECORDS SUMMARY | 2024-03-03 23:45 | XMS_ITS | Continuity of Care Document ---
Author Organization [facility] Address [address] [place] [address]- Care Team Providers Care Basting Puller Name Role Phone Fine CEMENTER, Compa Hall Primary Care Physician Encounter [facility] Date(s): 07/15/23 - 08/14/23 [facility] [place] [address] [place] [address]- Allergies, Adverse Reactions, Alerts No Known Allergies Immunizations Given and Recorded Vaccine Date Status Refusal Reason SARS-CoV-2 (COVID-19) mRNA BNT-162b2 vac 09/08/20 Recorded SARS-CoV-2 (COVID-19) mRNA BNT-162l3 vac 08/18/20 Recorded pneumococcal 23-valent vaccine 10/21/16 Given tetanus-diphtheria toxoids (Td) 05/05/03 Recorded Medications albuterol-ipratropium 3 mg-0.5 mg/3 ml inhalation solution 3 mL, Inhalation, 4 times a day, PRN Wheezing/Shortness of Breath, DX: J45.909 do not use ventolineand Nebs at the same time, # 90 mL, 11 Refills, Maintenance, 03/25/23 12:53:00 EST, Solution, [facility] #[id number], 3 mL Inhalation 4 times a da... Start Date: 03/25/23 Status: Ordered Breo Ellipta 100 mcg-25 mcg/inh inhalation powder 1 puffs, Inhalation, Daily, RINSE MOUTH AFTERWARDS., # 1 each, 3 Refills, 11/21/22 10:33:00 EDT, [facility] #[id number], 1 puffs Inhalation Daily,Instr:RINSE MOUTH AFTERWARDS., 170, cm, 11/19/2313:19:00 EDT, Height, 94.4, kg, 11/08/22 14:35:00 E... Start Date: 11/21/22 Status: Ordered cloNIDine 0.1 mg oral tablet 0.05 mg, 0.5, tablet, By Mouth, 4 times a day, PRN, stay hydrated, # 120 tablet, Refills 0, Tot. Refills 0, Maintenance, anxiety, panic, withdrawal symptoms, 08/11/23 9:29:00 EDT, Route to Pharmacy Electronically, [facility] #[id number], Partial... Start Date: 08/11/23 Stop Date: 09/10/23 Status: Ordered duloxetine 30 mg oral enteric coated capsule 1 capsule = 30 mg, By Mouth, 2 times a day, do not crush or chew, # 180 capsule, 3 Refills, Maintenance, 12/20/22 17:50:00 EDT, [facility] #[id number], 170, cm, 12/06/22 0:43:00 EDT, Height, 94.4, kg, 11/08/22 14:35:00 EDT, Dry Weight Start Date: 12/20/22 Status: Ordered gabapentin 300 mg oral capsule 300 mg, 1, capsule, By Mouth, 3 times a day, # 270 capsule, Refills 1, Tot. Refills 1, Maintenance,08/11/23 9:29:00 EDT, Route to Pharmacy Electronically, [facility] #[id number], Partial fill upon patient request, 170, cm, 07/23/23 16:32:00 EDT,... Start Date: 08/11/23 Status: Ordered hydroxychloroquine 200 mg oral tablet 1, tablet, By Mouth, 2 times a day, # 60 tablet, Refills 5, Tot. Refills 5, 04/15/23 13:55:00 EST, Route to Pharmacy Electronically, [facility] #[id number], 170, cm, 01/31/23 10:06:00 EDT, Height, 94.4, kg, 11/08/22 14:35:00 EDT, Dry Weight Start Date: 04/15/23 Status: Ordered hydrOXYzine hydrochloride 25 mg oral tablet 1 tablet = 25 mg, By Mouth, 2 times a day, PRN for anxiety, for 30 days, # 60 tablet, 0 Refills, Acute 09/10/23 9:30:00 EDT, 08/11/23 9:30:00 EDT, Tablet, [facility] #[id number], Partial fill upon patient request if the [...] 1 Refills, Maintenance, 08/11/23 9:31:00 EDT, Tablet, [facility] #[id number], IF NOT COVERED, please use goodrx coupon and allow pt to payOOP; $9.09; ASHLEY [id number]; [facility]; Group [address]; Member... Start Date: 08/11/23 Status: Ordered risperiDONE 1 mg oral tablet 1 mg, 1, tablet, By Mouth, Daily, # 90 tablet, Refills 1, Tot. Refills 1, Maintenance, 08/11/23 9:29:00 EDT, Route to Pharmacy Electronically, [facility] #[id number], 170, cm, 07/23/23 16:32:00 EDT, Height, 100, kg, 04/20/23 21:48:00 EST, Dry Weight Start Date: 08/11/23 Stop Date: 02/07/24 Status: Ordered Suboxone 8 mg-2 mg Sublingual Film 1 film, Sublingual, 3 times a day, dissolve under the tongue, # 90 film, 1 Refills, Maintenance, 07/13/23 11:49:00 EDT, [facility] #[id number], Partial fill upon patient request if the prescription is for a schedule II opioid drug. ALVINA [id number];... Start Date: 07/13/23 Stop Date: 09/11/23 Status: Ordered tiZANidine 2 mg oral tablet 2 mg, 1, tablet, By Mouth, 3 times a day, # 84 tablet, Refills 1, Tot. Refills 1, Maintenance, 07/01/23 16:53:00 EST, Route to Pharmacy Electronically, [facility] #[id number], Partial fill upon patient request if the prescription is for a schedul... Start Date: 07/01/23 Stop Date: 08/26/23 Status: Ordered Trelegy Ellipta 200 mcg-62.5 mcg-25 mcg/inh inhalation powder 1 puffs, Inhalation, Daily, at the same time every day, # 3 each, 3 Refills, Maintenance, 07/23/23 16:56:00 EDT, Powder, [facility] #[id number], Partial fill upon patient request if the prescription is for a schedule II opioid drug., 1 puffs Inha... Start Date: 07/23/23 Stop Date: 07/17/24 Status: Ordered Ventolin HFA 108 mcg/inh inhalation aerosol with adapter 2 puffs, Inhalation, 4 times a day, PRN for wheezing, # 1 each, 3 Refills, Maintenance, 05/28/23 12:34:00 EST, Aerosol, [facility] #[id number], Partial fill upon patient request if the prescription is for a schedule II opioid drug., 170, cm, 04/04... Start Date: 05/28/23 Status: Ordered Voltaren Arthritis Pain 1% topical gel = 4 Gm, Topically, 4 times a day, # 480 Gm, 4 Refills, Maintenance, 07/24/23 14:31:00 EDT, [facility] #[id number], Partial fill upon patient request if the [...] Professional Member Role: PCP Address: Address: [address] [place] [id number]- [place] Name: Blaire Iglesias [place] Position: [facility] RN Member Role: Primary Care Nurse Name: Rhiannon Gibson Position: [facility] RN Member Role: Primary Care Nurse Name: Viral Jolly MD Position: [facility] Physician - Behavioral Health Member Role: Lifetime Consulting Physician Address: Address: [address] [place] [address]- Care Team Related Persons Name: MAIN MOSER Address: home [address] [place] [address] Name: JORGE GARCIA Address: [address] [place] [address] Name: LOREE SIFUENTES
--- OUTSIDE RECORDS SUMMARY | 2024-03-03 23:45 | XMS_ITS | Continuity of Care Document ---
Author Organization [facility] Address [address] [place] [address]- Care Team Providers Care Advertising Project Manager Name Role Phone Fine HEALTH OUTREACH WORKER, Compa Hall Primary Care Physician Encounter [facility] Date(s): 10/27/23 - 11/26/23 [facility] [address] [place] [address]- Attending Physician: AdmMaddie childs Admitting Physician: Admtr, [id number] Referring Physician: Admtr, [...] 11 Refills, Maintenance, 03/25/23 12:53:00 EST, Solution, [facility] #[id number], 3 mL Inhalation 4 times a da... Start Date: 03/25/23 Status: Ordered amoxicillin-clavulanate 875 mg-125 mg oral tablet 1 tablet, By Mouth, Every 12 hours, for 10 days, # 20 tablet, 0 Refills, Acute 12/06/23 7:37:00 EDT, 11/26/23 7:37:00 EDT, Tablet, [facility] #[id number], Partial fill upon patient request if the prescription is for a schedule II opioid drug., 17... Start Date: 11/26/23 Stop Date: 12/06/23 Status: Ordered Breo Ellipta 100 mcg-25 mcg/inh inhalation powder 1 puffs, Inhalation, Daily, [employer]., # 1 each, 3 Refills, 11/21/22 10:33:00 EDT, [facility] #[id number], 1 puffs Inhalation Daily,Instr:[employer]., 170, cm, 11/19/2313:19:00 EDT, Height, 94.4, kg, 11/08/22 14:35:00 E... Start Date: 11/21/22 Status: Ordered calcium (as citrate)-vitamin D 315 mg-250 intl units oral tablet 2 tablet, By Mouth, 2 times a day, # 120 tablet, 11 Refills, Maintenance, 10/27/23 11:47:00 EDT, Tablet, [facility] #[id number], Partial fill upon patient request if the [...] 09/18/23 10:13:00 EDT, Route to Pharmacy Electronically, [facility] #[id number], Partial... Start Date: 09/18/23 Stop Date: 03/16/24 Status: Ordered duloxetine 30 mg oral enteric coated capsule 1 capsule = 30 mg, By Mouth, 2 times a day, do not crush or chew, # 180 capsule, 3 Refills, Maintenance, 12/20/22 17:50:00 EDT, [facility] #[id number], 170, cm, 12/06/22 0:43:00 EDT, Height, 94.4, kg, 11/08/22 14:35:00 EDT, Dry Weight Start Date: 12/20/22 Status: Ordered gabapentin 300 mg oral capsule 300 mg, 1, capsule, By Mouth, 3 times a day, # 270 capsule, Refills 1, Tot. Refills 1, Maintenance,08/11/23 9:29:00 EDT, Route to Pharmacy Electronically, [facility] #[id number], Partial fill upon patient request, 170, cm, 07/23/23 16:32:00 EDT,... Start Date: 08/11/23 Status: Ordered hydroxychloroquine 200 mg oral tablet 1, tablet, By Mouth, 2 times a day, # 60 tablet, Refills 5, Tot. Refills 5, 04/15/23 13:55:00 EST, Route to Pharmacy Electronically, [facility] #[id number], 170, cm, 01/31/23 10:06:00 EDT, Height, 94.4, kg, 11/08/22 14:35:00 EDT, Dry Weight Start Date: 04/15/23 Status: Ordered hydrOXYzine hydrochloride 25 mg oral tablet See Instructions, TAKE 1 TABLET BY MOUTH TWICE DAILY NEEDED FOR ANXIETY, # 60 tablet, 5 Refills,Maintenance, 09/18/23 10:13:00 EDT, [facility] #[id number], 170, cm, 07/23/23 16:32:00 EDT, Height, 100, [...] 1 Refills, Maintenance, 11/20/23 16:42:00 EDT, Tablet, [facility] #[id number], IF NOT COVERED, please use [employer] coupon and allow pt to pay OOP; $9.09; ASHLEY [id number]; [facility]; Group [facility]; Membe... Start Date: 11/20/23 Status: Ordered predniSONE 10 mg oral tablet See Instructions, 4 tablets for 3 days 3 tabs for 3 days 2 tabs for 3 days 1 tab for 3 days, # 30 tablet, 0 Refills, Acute 12/11/23 7:37:00 EDT, 11/26/23 7:37:00 EDT, [facility] #[id number], Partial fill upon patient request if the prescriptio... Start Date: 11/26/23 Stop Date: 12/11/23 Status: Ordered risperiDONE 1 mg oral tablet 1 mg, 1, tablet, By Mouth, Daily, # 90 tablet, Refills 1, Tot. Refills 1, Maintenance, 08/11/23 9:29:00 EDT, Route to Pharmacy Electronically, [facility] #[id number], 170, cm, 07/23/23 16:32:00 EDT, Height, 100, kg, 04/20/23 21:48:00 EST, Dry Weight Start Date: 08/11/23 Stop Date: 02/07/24 Status: Ordered tiZANidine 2 mg oral tablet 2 mg, 1, tablet, By Mouth, 3 times a day, # 84 tablet, Refills 1, Tot. Refills 1, Maintenance, 09/08/23 18:10:00 EDT, Route to Pharmacy Electronically, [facility] #[id number], Partial fill upon patient request if the prescription is for a schedul... Start Date: 09/08/23 Stop Date: 11/03/23 Status: Ordered Trelegy Ellipta 200 mcg-62.5 mcg-25 mcg/inh inhalation powder 1 puffs, Inhalation, Daily, at the same time every day, # 3 each, 3 Refills, Maintenance, 07/23/23 16:56:00 EDT, Powder, [facility] #[id number], Partial fill upon patient request if the prescription is for a schedule II opioid drug., 1 puffs Inha... Start Date: 07/23/23 Stop Date: 07/17/24 Status: Ordered Ultram 50 mg oral tablet 1 tablet = 50 mg, By Mouth, Every 12 hours, PRN for pain, # 20 tablet, 0 Refills, Maintenance, 10/14/23 9:32:00 EDT, Tablet, [facility] #[id number], Partial fill upon patient request if the prescription is for a schedule II opioid drug., 170, cm,... Start Date: 10/14/23 Status: Ordered Ventolin HFA 108 mcg/inh inhalation aerosol with adapter 2 puffs, Inhalation, 4 times a day, PRN for wheezing, # 1 each, 3 Refills, Maintenance, 05/28/23 12:34:00 EST, Aerosol, [facility] #[id number], Partial fill upon patient request if the prescription is for a schedule II opioid drug., 170, cm, 04/04... Start Date: 05/28/23 Status: Ordered Voltaren Arthritis Pain 1% topical gel = 4 Gm, Topically, 4 times a day, # 480 Gm, 4 Refills, Maintenance, 07/24/23 14:31:00 EDT, [facility] #[id number], Partial fill upon patient request if the [...] Team Personnel Name: Compa Diane NP Position: [facility] PCO Associate Professional Member Role: PCP Address: Address: [address] [facility] [place] [address]- Name: Blaire Iglesias [place] Position: [facility] Office Staff Member Role: Primary Care Nurse Name: Rhiannon Li [place] Position: [facility] Staff Member Role: Primary Care Nurse Name: Viral Jolly MD Position: [facility] Physician - Behavioral Health Member Role: Lifetime Consulting Physician Address: Address: [address] [place] [id number]- Care Team Related Persons Name: MAIN MOSER Address: home [address] [place] [address] Name: JORGE GARCIA Address: home [address] [place] [address] Name: LOREE SIFUENTES
[2024-03-04] VITALS (7 sets, daily range): BP systolic 126–173; BP diastolic 65–101; PULSE 82–109; RESP 16–20; TEMP 36.6–36.9; O2SAT 94–99
--- NOTE | 2024-03-04 01:27 | PC.NURSE ---
Took report from off-going RN at 2300 hours. Pt is a 59 y/o F who was brought here as a direct admit to from [place] ED. Pt initially arrived and went to . Pt was found to be obtunded and extremely somnolent and returned to the ED for evaluation. After shift change, pt remained very sleepy and difficult to arouse with any type of stimuli. Close monitoring continued. Pt asked for food and drink. Pt was able to consume some ice chips and a small amount of giner shakira without issue. Pt offered a sandwhich but fell back to sleep before attempting to eat it. Pt later put election assistant light and asked for more ativan to get back to sleep. Provider made aware of request. Will continue to monitor for any changes.
--- NOTE | 2024-03-04 01:37 | ED.GENADULT ---
HPI - General Adult General Chief complaint: Altered Mental Status Stated complaint: altered mental status Time Seen by Provider: 03/03/24 22:17 Source: EMS Mode of arrival: EMS Limitations: altered mental status History of Present Illness ED Provider: Dr. Quintanilla HPI narrative: Patient is a 59yo female with alcoholism and depression. She was seen at outside ED and was accepted for transfer [place] [facility] [place] Upon arrival to the ED patient too lethargic to answer question and needed to be placed on oxygen because she was hypoxic. Related Data Allergies Allergy/AdvReac Type Severity Reaction Status Date / Time No Known Allergies Allergy Verified 03/03/24 22:05 Review of Systems Review of Systems: Yes Unobtainable due to mental status Neurologic: Denies Sensory deficit (Neuro) [facility] Social History Social History Unable to assess alcohol history related to: Unable to respond Alcohol intake: current Alcohol intake frequency: 0-2 drinks per day Alcohol type: beer Use of substances other than those prescribed or required for medical reasons: Unknown Advance Directives: No Advance Directives Information Provided: No Physical Exam ED Vital Signs: Vital Signs - 24 hr 03/03/24 21:54 03/03/24 22:01 03/04/24 01:05 Temperature 97.5 F 98.9 F Pulse Rate 104 H 107 H 109 H Respiratory Rate 19 20 19 Blood Pressure 186/90 H 143/96 H 155/81 H Pulse Oximetry 94 98 99 Oxygen Delivery Method Nasal Cannula Nasal Cannula Room Air Oxygen Flow Rate 4 BMI result Body Mass Index 36.9 Const Other: Obese, unkept female lethargic, unable to wake up Orientation/consciousness: oriented to person Limitations: altered mental status HENMT Head: Yes normal to inspection Ears: external ears normal General nose exam: Normal external nose present Mouth: Normal oral and palatal mucosa present and oropharynx normal Throat: Yes posterior oropharynx normal Eyes General: appearance normal, both eyes and all related structures Neck Neck: Yes normal visual inspection Chest Chest palpation & inspection: normal inspection of the chest Resp Auscultation: clear to auscultation bilaterally Cardio Jugular venous distension: no JVD Rate: regular rate Rhythm: regular rhythm Heart sounds: S1 normal heart sound present and S2 normal heart sound present GI Inspection: Yes normal to inspection Palpation (GI): Soft to palpation, nontender and No hepatosplenomegaly present Auscultation: normal bowel sounds General: Yes no CVA tenderness Back/Spine/Pelvis Back: no CVA tenderness Skin General skin exam: no rashes or lesions noted Neuro Other: barely arousable to noxious stimuli General: oriented to person Cranial nerves: Yes CN's II-XII intact bilaterally Motor exam (neuro): 5/5 motor strength present throughout Sensory Exam: No Sensory deficit (Neuro) Extrem General: Yes normal to inspection Psych Appearance: grossly normal Course Reevaluation(s) Reevaluation #1: Patient observed for 3 hours, now awake will admit to psych Time: 01:42 Medical Decision Making Differential Diagnosis Differential Diagnoses: The differential diagnosis associated with the presentation includes Admission/Observation Consideration of admission/observation: Escalation of care including admission/observation considered (Upon arrival patient was to be admitted to Psych) Consult Healthcare Provider Management of the patient was discussed with: Behavioral Health Provider Lab Data 03/03/24 22:51 03/03/24 22:51 Labs: Lab Results 03/03/24 Range/Units 22:51 WBC 8.5 (4.8-10.8) X10*3/uL RBC 4.88 (4.20-5.50) X10*6/uL Hgb 16.7 H (12.0-16.0) g/dl Hct 48.5 H (37.0-47.0) % MCV 99.4 H (80.0-98.0) fL MCH 34.2 H (27.0-33.0) pg MCHC 34.4 (31.0-35.0) g/dl RDW 12.4 (11.0-16.0) % Plt Count 250 (160-400) X10*3/uL MPV 9.6 (9.4-12.3) fL Immature Gran % (Auto) 0.2 (0.0-0.4) % Neut % (Auto) 66.9 (45-73) % Lymph % (Auto) 21.0 (20-40) % [place] % (Auto) 8.8 (2-11) % Eos % (Auto) 2.4 (0-4) % Baso % (Auto) 0.7 (0-2) % Lymph # (Auto) 1.8 (1.2-4.9) X10*3/uL [place] # (Auto) 0.8 (0.1-1.2) X10*3/uL Eos # (Auto) 0.2 (0.0-0.4) X10*3/uL Baso # (Auto) 0.1 (0.0-0.2) X10*3/uL Abs Immat Gran (auto) 0.02 (0.00-0.03) X10*3/uL Absolute Neuts (auto) 5.7 (2.0-8.3) x10*3/uL Absolute Nucleated RBC 0.000 (0.0-0.012) X10*3/uL Nucleated RBC % (auto) 0.0 (0.0-0.2) /100WBC Sodium 143 (135-145) mmol/L Potassium 4.1 (3.3-5.1) mmol/L Chloride 107 (96-108) mmol/L Carbon Dioxide 24 (22-29) mmol/L Anion Gap 16 (12-20) BUN 13 (9-16) mg/dL Creatinine 0.74 (0.5-1.4) mg/dL Estim Creat Clear Calc 98.3 Estimated GFR > 60 Random Glucose 125 H (60-115) mg/dL Calcium 9.3 (8.4-10.2) mg/dL Total Bilirubin 0.6 (0.0-1.0) mg/dL Direct Bilirubin 0.2 (0.0-0.5) mg/dL AST 59 H (5-31) U/L ALT 102 H (0-31) U/L Alkaline Phosphatase 105 (39-117) U/L Total Protein 7.3 (6.5-8.0) g/dL Albumin 4.4 (3.5-5.0) g/dL Ethyl Alcohol < 10 mg/dL Independent Historian Clinical information obtained from an independent historian. History obtained from or confirmed by: EMS External Record Review External record reviewed: Outpatient record Chronic Conditions Patient?s care impacted by: Other (alcoholism) Social Determinants Patient?s care significantly limited by Social Determinants of Health including: Low income and Alcoholism and drug addiction in family Discharge Plan Discharge Clinical Impression: Alcoholic intoxication, Depression Patient Disposition: Admitted As Inpatient Print Language: Mozambican
--- NOTE | 2024-03-04 01:46 | MHC.EDTECH ---
patient head wound over right ear cleaned
[2024-03-04 01:57] LABS: Appearance Urine Clear; Color Urine Dark Yellow; Glucose Urine UA Negative (Negative); Leukocyte Esterase Urine Negative (Negative); Nitrite Urine Negative (Negative); PH 5.5 (5.0-9.0); Specific Gravity - Urine 1.025 (1.005-1.025); Urine Blood Negative (Negative); Urine Ketones 15 mg/dL (Negative); Urine Protein Trace mg/dL (Neg-Trace)
[2024-03-04 02:02] LABS: Amphetamine Screen Urine Not Detected (Not Detect); Barbiturates, Urine POSITIVE (Not Detect); Benzodiazepines Screen Urine Not Detected (Not Detect); Buprenorphine Scr Not Detected (Not Detect); Cannabinoid Screen Urine POSITIVE (Not Detect); Cocaine Screen Urine POSITIVE (Not Detect); Fentanyl, urine Not Detected (Not Detect); Methadone Screen, Urine Not Detected (Not Detect); Opiate Screen Urine Not Detected (Not Detect); Oxycodone Screen Urine Not Detected (Not Detect); Phencyclidine Screen Urine Not Detected (Not Detect)
[2024-03-04] MEDS: LORazepam 1 MG TABLET PO ×3 (05:37→20:48)
--- NOTE | 2024-03-04 05:42 | PC.NURSE ---
Since start of shift at 2300 hours, pt's mental status has increasing improved. Pt is easily arousable with verbal stimuli. Pt uses the call light appropriately. Is calm and cooperative, appropriate with staff. Pt asked how long she will be here and verbalized that she wants to go home. Pt woke and reported that she feels nauseous and has tremors, requests something for withdrawal. Will continue to monitor for changes.
--- NOTE | 2024-03-04 08:07 | PC.NURSE ---
Care of Pt assumed at change of shift. Pt is currently alert and oriented. Pt observed walking in the department with sitter. REYNA at this time. Call received from Pts sister Emma inquiring about an update. Per Pt, she would prefer to speak to Emma herself instead of staff. Call back number for Emma is [phone], will arrainge for Pt to use phone.
--- NOTE | 2024-03-04 09:13 | PC.NURSE ---
Pt requests more Ativan. States she takes this at home for ETOH withdrawals. CIWA this AM was 2. Discussed with Dr. Fair, Ativan not indicated at this time. Will continue to monitor. Pt is awaiting room on M5.
--- NOTE | 2024-03-04 10:36 | PHA.MEDREC ---
Addendum entered by Jojo Webb RPh 03/04/24 11:31: [facility] REVIEWED Original Note: Pharmacy Consult ? Medication Reconciliation Pharmacy has completed the medication reconciliation. Confirmed medications with patient. Patient states she was getting Ativan while a patient at [place] and wants to be on it here but was not sure on the dosage or how she was taking it there. She confirmed she is taking Buprenorphine-Naloxone 8-3mg films and she confirmed it is 3 films daily and she has been consistent with it; after the pharmacist pdmp'd the patient she has not gotten that medication since 12/15 for a 30 day supply. She confirmed she is not taking any medications for constipation and states she started going crazy from having to take so much for that. She confirmed she takes her Tizanidine 2mg tab once daily as needed sometimes 2 when absolutely needed. The patient stated she is no longer taking Trazodone 50mg and when asked more about it she started getting agitated and stated again she is not taking it. She confirmed she last took her medications yesterday.
[2024-03-04] MEDS: Folic Acid 1 MG TABLET PO (11:00)
[2024-03-04] MEDS: Thiamine HCL 100 MG TABLET PO (11:00)
[2024-03-04] MEDS: Nicotine 21 MG PATCH.TD24 TRANSDERMA (13:25)
[2024-03-04] MEDS: Nicotine Polacrilex 2 MG GUM 4 MG BUCCAL ×3 (13:25→20:45)
[2024-03-04] MEDS: LORazepam 1 MG TABLET 2 MG PO ×2 (13:37→17:09)
[2024-03-04] MEDS: hydrOXYzine HCL 25 MG TABLET PO (13:41)
--- NOTE | 2024-03-04 14:05 | P.HPPS_ITS ---
HPI Date of Service: 03/04/24 Chief Complaint: Depression/SI Sources of Information: patient interviewed, chart reviewed and crisis/core team assessment reviewed HPI Subjective Notes: [place] Warning, Conditional Voluntary and 3 Day Narrative: pt seen on 03/04/24 pt is a 59 yo female with hx of ONI, Tumid Deirdre, early stage liver failure, alcohol/opioid use disorder, on Suboxone, who presents with depression and vague SI in face of intoxication and missing her son who a year ago from overdose. Pt reports she thought she would be able to handle it.. but says the grief resurfaced the last few weeks and she became depressed. She has been drinking excessively, up to 15-20 drinks per day. Pt also off suboxone post lipoma removal from her neck. This last week, intoxicated, she said she wishes she were so she could be with him. Pt explains now that although she did say such things, she never had any intention or plans to harm herself and was just lamenting and expressing her grief. She says she's feeling better now, no passive wish, and is getting back to her regular self. Pt is currently detoxing from alcohol and feels vulnerable to emotionality and agrees she needs hospitalization to further stabilize. She has been consistent with medications; would like to get back on suboxone (off for a week). Past Psychiatric History: past psych hospitalizations Medical Evaluation Reviewed: Yes [facility] Medical History (Updated 03/05/24 @ 09:05 by Damion Roland MD) Lupus erythematosus tumidus ONI on CPAP Opioid use disorder Alcohol use disorder MDD (major depressive disorder), recurrent severe, without psychosis Family History: Son: Addiction struggles Social History: Lives with boyfriend of 25 years Estranged from family Son a year ago from fentanyl overdose Substance History: Chronic alcohol abuse; opioid use disorder, on Suboxone Trauma History: History of trauma Diagnostics Vital Signs (24Hr): Vital Signs - 24 hr 03/03/24 21:54 03/03/24 22:01 03/04/24 01:05 Temperature 97.5 F 98.9 F Pulse Rate 104 H 107 H 109 H Respiratory Rate 19 20 19 Blood Pressure 186/90 H 143/96 H 155/81 H Pulse Oximetry 94 98 99 Oxygen Delivery Method Nasal Cannula Nasal Cannula Room Air Oxygen Flow Rate 4 03/04/24 03:38 03/04/24 03:54 03/04/24 06:04 Temperature 98.4 F Pulse Rate 83 84 82 Respiratory Rate 20 16 16 Blood Pressure 151/72 H 173/76 H 144/87 H Pulse Oximetry 96 98 97 Oxygen Delivery Method Nasal Cannula Room Air Room Air Oxygen Flow Rate 2 03/04/24 08:26 Temperature Pulse Rate 88 Respiratory Rate 16 Blood Pressure 152/77 H Pulse Oximetry 99 Oxygen Delivery Method Room Air Oxygen Flow Rate BMI result Body Mass Index 36.9 Labs 03/03/24 22:51 03/03/24 22:51 Labs: Laboratory Results - last 48 hr 03/03/24 03/04/24 22:51 01:39 WBC 8.5 RBC 4.88 Hgb 16.7 H Hct 48.5 H MCV 99.4 H MCH 34.2 H MCHC 34.4 RDW 12.4 Plt Count 250 MPV 9.6 Immature Gran % (Auto) 0.2 Neut % (Auto) 66.9 Lymph % (Auto) 21.0 [place] % (Auto) 8.8 Eos % (Auto) 2.4 Baso % (Auto) 0.7 Lymph # (Auto) 1.8 [place] # (Auto) 0.8 Eos # (Auto) 0.2 Baso # (Auto) 0.1 Abs Immat Gran (auto) 0.02 Absolute Neuts (auto) 5.7 Absolute Nucleated RBC 0.000 Nucleated RBC % (auto) 0.0 Sodium 143 Potassium 4.1 Chloride 107 Carbon Dioxide 24 Anion Gap 16 BUN 13 Creatinine 0.74 Estim Creat Clear Calc 98.3 Estimated GFR > 60 Random Glucose 125 H Calcium 9.3 Total Bilirubin 0.6 Direct Bilirubin 0.2 AST 59 H ALT 102 H Alkaline Phosphatase 105 Total Protein 7.3 Albumin 4.4 Urine Color Dark Yellow Urine Appearance Clear Urine pH 5.5 Ur Specific [place] 1.025 Urine Protein Trace Urine Glucose (UA) Negative Urine Ketones 15 Urine Blood Negative Urine Nitrite Negative Ur Leukocyte Esterase Negative Urine Opiates Screen Not Detected Ur Buprenorphine Scrn Not Detected Ur Oxycodone Screen Not Detected Urine Methadone Screen Not Detected Urine Fentanyl Screen Not Detected Ur Barbiturates Screen POSITIVE H Ur Phencyclidine Scrn Not Detected Ur Amphetamines Screen Not Detected U Benzodiazepines Scrn Not Detected Urine Cocaine Screen POSITIVE H U Marijuana (THC) Screen POSITIVE H Ethyl Alcohol < 10 Meds/Allergies Meds Home Medications ?Medication ?Instructions ?Recorded ?Confirmed ?Type albuterol sulfate 90 mcg/actuation 2 puff inhalation Q4-6H PRN 03/04/24 03/04/24 History aerosol inhaler (Ventolin HFA) wheezing buprenorphine 8 mg-naloxone 2 mg 3 film sublingual DAILY 03/04/24 03/04/24 History sublingual film clonidine HCl 0.1 mg tablet 0.05 mg PO QID PRN ANXIETY, PANIC 03/04/24 03/04/24 History OR WITHDRAWALS duloxetine 30 mg capsule,delayed 30 mg PO BID 03/04/24 03/04/24 History release fluticasone fur. 200 mcg-umeclid 1 ea inhalation DAILY 03/04/24 03/04/24 History 62.5 mcg-vilant 25 mcg inhalat.powder (Trelegy Ellipta) gabapentin 300 mg capsule 300 mg PO TID 03/04/24 03/04/24 History hydroxychloroquine 200 mg tablet 200 mg PO BID 03/04/24 03/04/24 History hydroxyzine HCl 25 mg tablet 25 mg PO BID PRN anxiety 03/04/24 03/04/24 History phenobarbital 30 mg tablet 30 mg PO BID 03/04/24 03/04/24 History risperidone 1 mg tablet 1 mg PO DAILY 03/04/24 03/04/24 History tizanidine 2 mg tablet 2 mg PO DAILY PRN Muscle Spasms 03/04/24 03/04/24 History Allergies Allergies Allergy/AdvReac Type Severity Reaction Status Date / Time No Known Allergies Allergy Verified 03/03/24 22:05 Assessment & Plan Assessment & Plan (1) MDD (major depressive disorder), recurrent severe, without psychosis: Status: Acute Code(s): F33.2 - Major depressive disorder, recurrent severe without psychotic features (2) Alcohol use disorder: Status: Acute Code(s): F10.90 - Alcohol use, unspecified, uncomplicated (3) Alcohol withdrawal: Status: Acute Code(s): F10.939 - Alcohol use, unspecified with withdrawal, unspecified (4) Opioid use disorder: Status: Acute Code(s): F11.90 - Opioid use, unspecified, uncomplicated (5) ONI on CPAP: Status: Acute Code(s): G47.33 - Obstructive sleep apnea (adult) (pediatric) (6) Lupus erythematosus tumidus: Status: Acute Code(s): L93.0 - Discoid lupus erythematosus Plan pt is a 59 yo female with hx of ONI, Tumid Deirdre, early stage liver failure, COPD, alcohol/opioid use disorder, on Suboxone, who presents with depression and vague SI in face of intoxication and missing her son who a year ago from overdose. Pt reports she thought she would be able to handle it.. but says the grief resurfaced the last few weeks and she became depressed. She has been drinking excessively, up to 15-20 drinks per day and said she could not stop herself.. Pt also off suboxone post lipoma removal from her neck. This last week, intoxicated, she said she wishes she were so she could be with him. Pt explains now that although she did say such things, she never had any intention or plans to harm herself and was just lamenting and expressing her grief. She says she's feeling better now, no passive wish, and is getting back to her regular self. Pt is currently detoxing from alcohol and feels vulnerable to emotionality and agrees she needs hospitalization to further stabilize; she has hx of alcohol w/drawal seizures. She has been consistent with medications; would like to get back on suboxone (off for a week). PLAN: cv q15min continue home meds CIWA with scheduled and prn ativan (hx of w/drawal seizures) REstart Suboxone; prescrived 8/2 mg TID but pt says she sometimes skips afternoon dose and takes double dose at bedtime Suboxone 8/2 mg BID with 8/2mg prn that she can take at anytime, including with scheduled dose Labs from [place]: CBC, BUN/creatinine, lytes, calcium WNL LFTs mildly elevated Patient educated on: diagnosis, medication risk/benefits, substance abuse and medical condition Informed Consent: understands Reason for continued inpatient stay Substantial Risk for: rapid decompensation Statement Statement: I have reviewed the history and physical and performed a pertinent examination on my patient. No changes have occurred unless specified. If the History and Physical was not performed prior to admission, the Hospitalist's service will be consulted for completing the admission physical. Time Spent With Patient Time: Total time managing care of this patient today ____ minutes.
[2024-03-04] MEDS: Gabapentin 300 MG CAPSULE PO ×2 (15:16→20:47)
[2024-03-04] MEDS: risperiDONE 1 MG TABLET PO (15:16)
[2024-03-04] MEDS: TiZANidine HCL 4 MG TABLET 2 MG PO (16:06)
[2024-03-04] MEDS: Hydroxychloroquine Sulfate 200 MG TABLET PO ×2 (17:05→20:48)
[2024-03-04] MEDS: cloNIDine HCL 0.1 MG TABLET 0.05 MG PO (17:05)
[2024-03-04] MEDS: Fluticasone/Umeclidinium/Vilanterol 200/62.5/25 BLST.W.DEV 1 PUFF INHALE (17:06)
--- NOTE | 2024-03-04 17:40 | PC.ADMIT ---
Addendum entered by Sulma Ortiz RN 03/04/24 20:02: Angelina refused the flu vaccine Addendum entered by Sulma Ortiz RN 03/04/24 18:14: Angelina is placed on a CIWA q4. Original Note: Angelina Rojas is a 59 year old female who was admitted to from [facility] after presenting for uncontrolled depression, SI,and AUD. Angelina has been inpatient on a couple different occasions in the past at [facility] in [facility]. Precipitates to admission include recent diagnosis of early stage liver failure and the loss of her son one year ago to a Fentanyl overdose, she has had thoughts that she would, rather be with him anyways. Angelina reports thoughts of SI for some time but reports no plan to act on it, but then reported that if she were to act she would shut off her CPAP and O2 at night. Angelina has sleep apnea and requires a CPAP at night. Angelina reports using marijuana on a regular basis and reports drinking 15 nips of whiskey a day and a beer-which she had prior to admission yesterday, she also reports a withdrawal history of hallucinations and . Angelina reported having a growth removed from the left side of her neck 5 days ago for which Suboxone for pain was stopped and restarted on this admission. Affect is sad and tearful, initially did not want to be here but understands the process. Angelina is cooperative with the admission process. Skin check done, admission completed, placed on 15 minute checks for safety.
[2024-03-04] MEDS: Buprenorphine/Naloxone 4/1 mg FILM 1 FILM SUBLINGUAL (17:50)
[2024-03-04] MEDS: DULoxetine HCl 30 MG CAPSULE.DR PO (20:47)
[2024-03-04] MEDS: Buprenorphine/Naloxone 8/2 mg FILM 1 FILM SUBLINGUAL (20:48)
[2024-03-04] MEDS: Albuterol Sulfate 90 MCG 8 GM INHALER 2 PUFF INHALE (23:13)
[2024-03-05] VITALS (10 sets, daily range): BP systolic 101–145; BP diastolic 62–89; PULSE 87–122; RESP 17–21; TEMP 35.7–36.6; O2SAT 80–91
[2024-03-05] MEDS: Nicotine Polacrilex 2 MG GUM 4 MG BUCCAL ×3 (03:19→14:40)
[2024-03-05] MEDS: LORazepam 1 MG TABLET PO ×6 (03:38→22:53)
[2024-03-05] MEDS: Albuterol Sulfate 90 MCG 8 GM INHALER 2 PUFF INHALE ×3 (07:29→23:05)
[2024-03-05] MEDS: Fluticasone/Umeclidinium/Vilanterol 200/62.5/25 BLST.W.DEV 1 PUFF INHALE (08:25)
[2024-03-05] MEDS: DULoxetine HCl 30 MG CAPSULE.DR PO ×2 (08:29→22:53)
[2024-03-05] MEDS: Gabapentin 300 MG CAPSULE PO ×3 (08:29→22:53)
[2024-03-05] MEDS: Buprenorphine/Naloxone 8/2 mg FILM 1 FILM SUBLINGUAL (08:29)
[2024-03-05] MEDS: risperiDONE 1 MG TABLET PO (08:29)
[2024-03-05] MEDS: Folic Acid 1 MG TABLET PO (08:30)
[2024-03-05] MEDS: Hydroxychloroquine Sulfate 200 MG TABLET PO ×2 (08:30→22:53)
[2024-03-05] MEDS: Thiamine HCL 100 MG TABLET PO (08:30)
[2024-03-05] MEDS: hydrOXYzine HCL 25 MG TABLET PO (08:37)
[2024-03-05 09:23] LABS: Estimated Average Glucose 131 mg/dL; Hemoglobin A1C 190.8408 umol/L; Hemoglobin A1c % 6.2 % (<6.0); Total Hemoglobin (HGBA1C) 4280.5411 umol/L
[2024-03-05 09:39] LABS: Cholesterol 191 mg/dL (<200); HDL Cholesterol 51 mg/dL (>40); LDL Cholesterol Calculated 107 mg/dL (<100); Triglycerides 166 mg/dL (<150)
--- NOTE | 2024-03-05 11:53 | PC.RT ---
RT called to bedside by RN to asses pt with SATs in the 80's. Pt dusky and slow to respond byut sitting upright in chair in hallway. Pt placed on NC and titrated for O2 between 88-92% due to COPD history. Pt carmine NC well, pt skin color back to pink and pt states she feels better. RN notified MD of O2 requirement.
--- NOTE | 2024-03-05 12:16 | P.PNPSI_ITS ---
Subjective Subjective Date of Service: 03/05/24 Reason For Visit: Depression/SI Interim History: Met with patient; discussed with team Patient desatting today, with O2 sats in the 80s; respiratory call to assess. Stock Holder wonders if Possibly due to restarting Suboxone so will lower dose; discussed with patient who agreed. Patient reports that her mood is still depressed and she is glad she came to the hospital. She discussed alcohol abuse and she acknowledged she is not sure if she is entirely ready to quit drinking. Mental Status Exam Mental Status Exam Narrative: Pt is alert and oriented; behavior is cooperative, friendly and calm; patient is not in distress; dressed in hospital attire with unkempt hair but adequate hygiene; mood is described as depressed and affect congruent, downcast; eye contact appropriate; Speech is a little slowed; normal volume and prosody; psychomotor retardation present; thought process is organized and goal directed; Thought content is on her son; intermittent passive SI, tx; otherwise pertinent to relevant topics and without any delusional content, paranoid ideations or grandiosity; intermittent passive SI/no HI. There is no evidence of perceptual disturbance and denies AVH. Patients insight and judgment impaired. Diagnostics Vital Signs (24Hr): Vital Signs - 24 hr 03/04/24 17:05 03/04/24 20:00 03/05/24 00:00 Temperature 97.9 F 96.2 F L Pulse Rate 109 H 87 Respiratory Rate Blood Pressure 161/101 H 126/65 120/62 Pulse Oximetry 94 Oxygen Delivery Method Room Air 03/05/24 08:00 03/05/24 09:03 03/05/24 11:01 Temperature 98 F 97.5 F Pulse Rate 112 H 110 H Respiratory Rate 17 21 H Blood Pressure 122/87 101/75 Pulse Oximetry 85 L 88 L 80 L Oxygen Delivery Method Room Air Room Air Room Air 03/05/24 11:26 Temperature Pulse Rate Respiratory Rate Blood Pressure Pulse Oximetry 91 L Oxygen Delivery Method Nasal Cannula BMI result Body Mass Index 36.9 Labs 03/03/24 22:51 03/03/24 22:51 Labs: Laboratory Results - last 48 hr 03/03/24 03/04/24 03/05/24 22:51 01:39 09:03 WBC 8.5 RBC 4.88 Hgb 16.7 H Hct 48.5 H MCV 99.4 H MCH 34.2 H MCHC 34.4 RDW 12.4 Plt Count 250 MPV 9.6 Immature Gran % (Auto) 0.2 Neut % (Auto) 66.9 Lymph % (Auto) 21.0 [place] % (Auto) 8.8 Eos % (Auto) 2.4 Baso % (Auto) 0.7 Lymph # (Auto) 1.8 [place] # (Auto) 0.8 Eos # (Auto) 0.2 Baso # (Auto) 0.1 Abs Immat Gran (auto) 0.02 Absolute Neuts (auto) 5.7 Absolute Nucleated RBC 0.000 Nucleated RBC % (auto) 0.0 Sodium 143 Potassium 4.1 Chloride 107 Carbon Dioxide 24 Anion Gap 16 BUN 13 Creatinine 0.74 Estim Creat Clear Calc 98.3 Estimated GFR > 60 Random Glucose 125 H Estimat Average Glucose 131 Hemoglobin A1c % 6.2 H Calcium 9.3 Total Bilirubin 0.6 Direct Bilirubin 0.2 AST 59 H ALT 102 H Alkaline Phosphatase 105 Total Protein 7.3 Albumin 4.4 Triglycerides 166 H Cholesterol 191 LDL Cholesterol, Calc 107 H HDL Cholesterol 51 TSH 1.40 Urine Color Dark Yellow Urine Appearance Clear Urine pH 5.5 Ur Specific [place] 1.025 Urine Protein Trace Urine Glucose (UA) Negative Urine Ketones 15 Urine Blood Negative Urine Nitrite Negative Ur Leukocyte Esterase Negative Urine Opiates Screen Not Detected Ur Buprenorphine Scrn Not Detected Ur Oxycodone Screen Not Detected Urine Methadone Screen Not Detected Urine Fentanyl Screen Not Detected Ur Barbiturates Screen POSITIVE H Ur Phencyclidine Scrn Not Detected Ur Amphetamines Screen Not Detected U Benzodiazepines Scrn Not Detected Urine Cocaine Screen POSITIVE H U Marijuana (THC) Screen POSITIVE H Ethyl Alcohol < 10 Medications Medications Current Medications Acetaminophen (Acetaminophen 325 Mg Tablet) 650 mg PO Q6H PRN PRN Reason: Headache/Pain Mild Scale (1-3) Al Hydroxide/Mg Hydroxide (Magnesium Hydrox/Alum Hydrox 30 Ml Oral.Susp) 30 ml PO Q6H PRN PRN Reason: Heartburn/Nausea Albuterol Sulfate (Albuterol Sulfate 90 Mcg 8 Gm Inhaler) 2 puff INHALE Q4H PRN PRN Reason: wheezing Last Admin: 03/05/24 07:29 Dose: 2 puff Buprenorphine/Naloxone (Buprenorphine/Naloxone 4/1 Mg Film) 1 film SUBLINGUAL BID FAHAD Clonidine HCl (Clonidine Hcl 0.1 Mg Tablet) 0.05 mg PO QID PRN; Protocol PRN Reason: ANXIETY, PANIC OR WITHDRAWALS Last Admin: 03/04/24 17:05 Dose: 0.05 mg Duloxetine HCl (Duloxetine Hcl 30 Mg Capsule.Dr) 30 mg PO BID [facility] Last Admin: 03/05/24 08:29 Dose: 30 mg Fluticasone/Umeclidinium/Vilanterol (Fluticasone/Umeclidinium/Vilanterol 200/62.5/25 Blst.W.Dev) 1 puff INHALE RDAILY [facility], [facility] Last Admin: 03/05/24 08:25 Dose: 1 puff Folic Acid (Folic Acid 1 Mg Tablet) 1 mg PO DAILY [facility] Last Admin: 03/05/24 08:30 Dose: 1 mg Gabapentin (Gabapentin 300 Mg Capsule) 300 mg PO TID [facility] Last Admin: 03/05/24 08:29 Dose: 300 mg Hydroxychloroquine Sulfate (Hydroxychloroquine Sulfate 200 Mg Tablet) 200 mg PO BID [facility] Last Admin: 03/05/24 08:30 Dose: 200 mg Hydroxyzine HCl (Hydroxyzine Hcl 25 Mg Tablet) 25 mg PO Q6H PRN PRN Reason: Anxiety Last Admin: 03/05/24 08:37 Dose: 25 mg Hydroxyzine HCl (Hydroxyzine Hcl 25 Mg Tablet) 25 mg PO BID PRN PRN Reason: anxiety Lorazepam (Lorazepam 1 Mg Tablet) 1 mg PO Q2H PRN PRN Reason: CIWA 6-10 Last Admin: 03/05/24 08:37 Dose: 1 mg Lorazepam (Lorazepam 1 Mg Tablet) 2 mg PO Q2H PRN PRN Reason: CIWA 11 and above Last Admin: 03/04/24 17:09 Dose: 2 mg Lorazepam (Lorazepam 1 Mg Tablet) 1 mg PO TID [facility] Last Admin: 03/05/24 08:29 Dose: 1 mg Magnesium Hydroxide (Milk Of Magnesia 30 Ml Oral.Susp) 30 ml PO DAILY PRN PRN Reason: Constipation Nicotine (Nicotine 21 Mg Patch.Td24) 21 mg TRANSDERMA DAILY PRN PRN Reason: smoking cessation Last Admin: 03/04/24 13:25 Dose: 21 mg Nicotine Polacrilex (Nicotine Polacrilex 2 Mg Gum) 4 mg BUCCAL Q2H PRN PRN Reason: Nicotine Cravings Last Admin: 03/05/24 11:25 Dose: 4 mg Olanzapine (Olanzapine 5 Mg Tablet) 5 mg PO TID PRN PRN Reason: agitation Risperidone (Risperidone 1 Mg Tablet) 1 mg PO DAILY [facility] Last Admin: 03/05/24 08:29 Dose: 1 mg Thiamine HCl (Thiamine Hcl 100 Mg Tablet) 100 mg PO DAILY [facility] Last Admin: 03/05/24 08:30 Dose: 100 mg Tizanidine HCl (Tizanidine Hcl 4 Mg Tablet) 2 mg PO DAILY PRN PRN Reason: Muscle Spasms Last Admin: 03/04/24 16:06 Dose: 2 mg Trazodone HCl (Trazodone Hcl 50 Mg Tablet) 50 mg PO BEDTIME [id number] PRN PRN Reason: Insomnia Allergies Allergies Allergy/AdvReac Type Severity Reaction Status Date / Time No Known Allergies Allergy Verified 03/03/24 22:05 Assessment & Plan Assessment & Plan (1) MDD (major depressive disorder), recurrent severe, without psychosis: Status: Acute Code(s): F33.2 - Major depressive disorder, recurrent severe without psychotic features (2) Alcohol use disorder: Status: Acute Code(s): F10.90 - Alcohol use, unspecified, uncomplicated (3) Alcohol withdrawal: Status: Acute Code(s): F10.939 - Alcohol use, unspecified with withdrawal, unspecified (4) Opioid use disorder: Status: Acute Code(s): F11.90 - Opioid use, unspecified, uncomplicated (5) ONI on CPAP: Status: Acute Code(s): G47.33 - Obstructive sleep apnea (adult) (pediatric) (6) Lupus erythematosus tumidus: Status: Acute Code(s): L93.0 - Discoid lupus erythematosus Plan pt is a 59 yo female with hx of ONI, Tumid Deirdre, early stage liver failure, COPD, alcohol/opioid use disorder, on Suboxone, who presents with depression and vague SI in face of intoxication and missing her son who a year ago from overdose. Pt reports she thought she would be able to handle it.. but says the grief resurfaced the last few weeks and she became depressed. She has been drinking excessively, up to 15-20 drinks per day and said she could not stop herself.. Pt also off suboxone post lipoma removal from her neck. This last week, intoxicated, she said she wishes she were so she could be with him. Pt explains now that although she did say such things, she never had any intention or plans to harm herself and was just lamenting and expressing her grief. She says she's feeling better now, no passive wish, and is getting back to her regular self. Pt is currently detoxing from alcohol and feels vulnerable to emotionality and agrees she needs hospitalization to further stabilize; she has hx of alcohol w/drawal seizures. She has been consistent with medications; would like to get back on suboxone (off for a week). Hospital course: 03/05 Patient desatting today, with O2 sats in the 80s; respiratory call to assess. Stock Holder wonders if Possibly due to restarting Suboxone so will lower dose; discussed with patient who agreed. -placed patient on nasal cannula with O2 2 L and patient started having normal O2 sats; able to come off oxygen and remained with stable O2 sats. Patient reports that her mood is still depressed and she is glad she came to the hospital. She discussed alcohol abuse and she acknowledged she is not sure if she is entirely ready to quit drinking. Still having withdrawal symptoms PLAN: cv q15min continue home meds CIWA with scheduled and prn ativan (hx of w/drawal seizures) LOWERED TO Suboxone; prescrived 4/1 mg B.I.D. (normally takes 8/1 T.I.D; sometimes skips afternoon dose and takes double dose at bedtime) HOLD 8/2mg prn that she can take at anytime, including with scheduled dose Labs from [place]: CBC, BUN/creatinine, lytes, calcium WNL LFTs mildly elevated Patient educated on: diagnosis, medication risk/benefits and medical condition Informed Consent: understands Reason for continued inpatient stay Substantial Risk for: rapid decompensation Time Spent With Patient Time: Total time managing care of this patient today ____ minutes.
[2024-03-05] MEDS: Nicotine 21 MG PATCH.TD24 TRANSDERMA (14:36)
[2024-03-05] MEDS: LORazepam 1 MG TABLET 2 MG PO (17:38)
[2024-03-06] MEDS: Albuterol Sulfate 90 MCG 8 GM INHALER 2 PUFF INHALE ×2 (07:26→20:36)
[2024-03-06] MEDS: Nicotine Polacrilex 2 MG GUM 4 MG BUCCAL ×2 (07:30→23:49)
[2024-03-06] MEDS: LORazepam 1 MG TABLET 2 MG PO ×3 (07:34→21:19)
[2024-03-06 08:00] VITALS: BP 133/67; PULSE 112; TEMP 36.7
--- NOTE | 2024-03-06 08:43 | P.PNPSI_ITS ---
Subjective Subjective Date of Service: 03/06/24 Reason For Visit: Depression/SI Interim History: Met with patient; discussed with team; reviewed chart Last night patient's O2 sat dropped to 82 %; information writer contacted and discussed with charge nurse who said it was temporary, while she was lying down and once on CPAP returned to WNL Reviewed labs and patient hemoglobin A1c 6.2, diabetic; discussed with patient who understood and said she would just address it with diet and exercise. Patient shared about chronic, intermittent bilateral knee pain; patient denies any history of trauma to the area information writer examined and both knees seem mildly swollen. Patient reports that her mood is overall better and denies any SI. Her plan for sobriety is to go to . Mental Status Exam Mental Status Exam Narrative: Pt is alert and oriented; behavior is cooperative, friendly and calm; patient is not in distress; dressed in hospital attire with unkempt hair but adequate hygiene; mood is described as little better and affect congruent, little brighter; eye contact appropriate; Speech is a little slowed; normal volume and prosody; psychomotor retardation present; thought process is organized and goal directed; Thought content is on her son; intermittent passive SI, tx; otherwise pertinent to relevant topics and without any delusional content, paranoid ideations or grandiosity; no SI/no HI. There is no evidence of perceptual disturbance and denies AVH. Patients insight and judgment impaired. Diagnostics Vital Signs (24Hr): Vital Signs - 24 hr 03/05/24 09:03 03/05/24 11:01 03/05/24 11:26 Temperature 97.5 F Pulse Rate 110 H Respiratory Rate 21 H Blood Pressure 101/75 Pulse Oximetry 88 L 80 L 91 L Oxygen Delivery Method Room Air Room Air Nasal Cannula Oxygen Flow Rate 03/05/24 12:21 03/05/24 13:30 03/05/24 15:36 Temperature Pulse Rate 105 H 104 H Respiratory Rate 20 Blood Pressure 137/72 Pulse Oximetry 91 L 91 L 90 L Oxygen Delivery Method Nasal Cannula Room Air Room Air Oxygen Flow Rate 1.5 03/05/24 17:33 03/05/24 20:00 Temperature 97.6 F Pulse Rate 117 H 122 H Respiratory Rate 21 H 20 Blood Pressure 145/89 H 131/68 Pulse Oximetry 91 L 82 L Oxygen Delivery Method Room Air Room Air Oxygen Flow Rate BMI result Body Mass Index 36.9 Labs 03/03/24 22:51 03/03/24 22:51 Labs: Laboratory Results - last 48 hr 03/05/24 09:03 Estimat Average Glucose 131 Hemoglobin A1c % 6.2 H Triglycerides 166 H Cholesterol 191 LDL Cholesterol, Calc 107 H HDL Cholesterol 51 TSH 1.40 Medications Medications Current Medications Acetaminophen (Acetaminophen 325 Mg Tablet) 650 mg PO Q6H PRN PRN Reason: Headache/Pain Mild Scale (1-3) Al Hydroxide/Mg Hydroxide (Magnesium Hydrox/Alum Hydrox 30 Ml Oral.Susp) 30 ml PO Q6H PRN PRN Reason: Heartburn/Nausea Albuterol Sulfate (Albuterol Sulfate 90 Mcg 8 Gm Inhaler) 2 puff INHALE Q4H PRN PRN Reason: wheezing Last Admin: 03/06/24 07:26 Dose: 2 puff Buprenorphine/Naloxone (Buprenorphine/Naloxone 4/1 Mg Film) 1 film SUBLINGUAL BID [facility] Last Admin: 03/05/24 22:56 Dose: Not Given Clonidine HCl (Clonidine Hcl 0.1 Mg Tablet) 0.05 mg PO QID PRN; Protocol PRN Reason: ANXIETY, PANIC OR WITHDRAWALS Last Admin: 03/04/24 17:05 Dose: 0.05 mg Duloxetine HCl (Duloxetine Hcl 30 Mg Capsule.Dr) 30 mg PO BID [facility] Last Admin: 03/05/24 22:53 Dose: 30 mg Fluticasone/Umeclidinium/Vilanterol (Fluticasone/Umeclidinium/Vilanterol 200/62.5/25 Blst.W.Dev) 1 puff INHALE RDAILY [facility] Last Admin: 03/05/24 08:25 Dose: 1 puff Folic Acid (Folic Acid 1 Mg Tablet) 1 mg PO DAILY [facility] Last Admin: 03/05/24 08:30 Dose: 1 mg Gabapentin (Gabapentin 300 Mg Capsule) 300 mg PO TID [facility] Last Admin: 03/05/24 22:53 Dose: 300 mg Hydroxychloroquine Sulfate (Hydroxychloroquine Sulfate 200 Mg Tablet) 200 mg PO BID [facility] Last Admin: 03/05/24 22:53 Dose: 200 mg Hydroxyzine HCl (Hydroxyzine Hcl 25 Mg Tablet) 25 mg PO Q6H PRN PRN Reason: Anxiety Last Admin: 03/05/24 08:37 Dose: 25 mg Hydroxyzine HCl (Hydroxyzine Hcl 25 Mg Tablet) 25 mg PO BID PRN PRN Reason: anxiety Lorazepam (Lorazepam 1 Mg Tablet) 1 mg PO Q2H PRN PRN Reason: CIWA 6-10 Last Admin: 03/05/24 22:53 Dose: 1 mg Lorazepam (Lorazepam 1 Mg Tablet) 2 mg PO Q2H PRN PRN Reason: CIWA 11 and above Last Admin: 03/06/24 07:34 Dose: 2 mg Lorazepam (Lorazepam 1 Mg Tablet) 1 mg PO TID [facility] Last Admin: 03/05/24 22:53 Dose: 1 mg Magnesium Hydroxide (Milk Of Magnesia 30 Ml Oral.Susp) 30 ml PO DAILY PRN PRN Reason: Constipation Nicotine (Nicotine 21 Mg Patch.Td24) 21 mg TRANSDERMA DAILY PRN PRN Reason: smoking cessation Last Admin: 03/05/24 14:36 Dose: 21 mg Nicotine Polacrilex (Nicotine Polacrilex 2 Mg Gum) 4 mg BUCCAL Q2H PRN PRN Reason: Nicotine Cravings Last Admin: 03/06/24 07:30 Dose: 4 mg Olanzapine (Olanzapine 5 Mg Tablet) 5 mg PO TID PRN PRN Reason: agitation Risperidone (Risperidone 1 Mg Tablet) 1 mg PO DAILY [facility] Last Admin: 03/05/24 08:29 Dose: 1 mg Thiamine HCl (Thiamine Hcl 100 Mg Tablet) 100 mg PO DAILY [facility] Last Admin: 03/05/24 08:30 Dose: 100 mg Tizanidine HCl (Tizanidine Hcl 4 Mg Tablet) 2 mg PO DAILY PRN PRN Reason: Muscle Spasms Last Admin: 03/04/24 16:06 Dose: 2 mg Trazodone HCl (Trazodone Hcl 50 Mg Tablet) 50 mg PO BEDTIME MRX1 PRN PRN Reason: Insomnia Allergies Allergies Allergy/AdvReac Type Severity Reaction Status Date / Time No Known Allergies Allergy Verified 03/03/24 22:05 Assessment & Plan Assessment & Plan (1) MDD (major depressive disorder), recurrent severe, without psychosis: Status: Acute Code(s): F33.2 - Major depressive disorder, recurrent severe without psychotic features (2) Alcohol use disorder: Status: Acute Code(s): F10.90 - Alcohol use, unspecified, uncomplicated (3) Alcohol withdrawal: Status: Acute Code(s): F10.939 - Alcohol use, unspecified with withdrawal, unspecified (4) Opioid use disorder: Status: Acute Code(s): F11.90 - Opioid use, unspecified, uncomplicated (5) ONI on CPAP: Status: Acute Code(s): G47.33 - Obstructive sleep apnea (adult) (pediatric) (6) Lupus erythematosus tumidus: Status: Acute Code(s): L93.0 - Discoid lupus erythematosus Plan pt is a 59 yo female with hx of ONI, Tumid Deirdre, early stage liver failure, COPD, alcohol/opioid use disorder, on Suboxone, who presents with depression and vague SI in face of intoxication and missing her son who a year ago from overdose. Pt reports she thought she would be able to handle it.. but says the grief resurfaced the last few weeks and she became depressed. She has been drinking excessively, up to 15-20 drinks per day and said she could not stop herself.. Pt also off suboxone post lipoma removal from her neck. This last week, intoxicated, she said she wishes she were so she could be with him. Pt explains now that although she did say such things, she never had any intention or plans to harm herself and was just lamenting and expressing her grief. She says she's feeling better now, no passive wish, and is getting back to her regular self. Pt is currently detoxing from alcohol and feels vulnerable to emotionality and agrees she needs hospitalization to further stabilize; she has hx of alcohol w/drawal seizures. She has been consistent with medications; would like to get back on suboxone (off for a week). Hospital course: 03/05 Patient desatting today, with O2 sats in the 80s; respiratory call to assess. Rug Sizer wonders if Possibly due to restarting Suboxone so will lower dose; discussed with patient who agreed. -placed patient on nasal cannula with O2 2 L and patient started having normal O2 sats; able to come off oxygen and remained with stable O2 sats. Patient reports that her mood is still depressed and she is glad she came to the hospital. She discussed alcohol abuse and she acknowledged she is not sure if she is entirely ready to quit drinking. Still having withdrawal symptoms 03/06 Last night patient's O2 sat dropped to 82 %; information writer contacted and discussed with charge nurse who said it was temporary, while she was lying down and once on CPAP returned to [facility] Reviewed labs and patient hemoglobin A1c 6.2, diabetic; discussed with patient who understood and said she would just address it with diet and exercise. Patient shared about chronic, intermittent bilateral knee pain; patient denies any history of trauma to the area information writer examined and both knees seem mildly swollen. Patient reports that her mood is overall better and denies any SI. Her plan for sobriety is to go to . -continue CIWA and scheduled Ativan as patient still scoring and has history of withdrawal seizures PLAN: cv q15min continue home meds CIWA with scheduled and prn ativan (hx of w/drawal seizures) Hold Suboxone 4/1 mg B.I.D. (normally takes 8/1 T.I.D; sometimes skips afternoon dose and takes double dose at bedtime) HOLD 8/2mg prn that she can take at anytime, including with scheduled dose Labs from [place]: CBC, BUN/creatinine, lytes, calcium WNL LFTs mildly elevated Patient educated on: diagnosis, medication risk/benefits and medical condition Informed Consent: understands Reason for continued inpatient stay Substantial Risk for: rapid decompensation Time Spent With Patient Time: Total time managing care of this patient today ____ minutes.
[2024-03-06] MEDS: Fluticasone/Umeclidinium/Vilanterol 200/62.5/25 BLST.W.DEV 1 PUFF INHALE (10:08)
[2024-03-06] MEDS: Thiamine HCL 100 MG TABLET PO (10:09)
[2024-03-06] MEDS: Gabapentin 300 MG CAPSULE PO ×3 (10:09→22:33)
[2024-03-06] MEDS: risperiDONE 1 MG TABLET PO (10:09)
[2024-03-06] MEDS: Hydroxychloroquine Sulfate 200 MG TABLET PO ×2 (10:09→22:33)
[2024-03-06] MEDS: Folic Acid 1 MG TABLET PO (10:09)
[2024-03-06] MEDS: Buprenorphine/Naloxone 4/1 mg FILM 1 FILM SUBLINGUAL (10:10)
[2024-03-06] MEDS: LORazepam 1 MG TABLET PO ×4 (10:10→22:33)
[2024-03-06] MEDS: DULoxetine HCl 30 MG CAPSULE.DR PO ×2 (10:10→22:33)
[2024-03-06] MEDS: Nicotine 21 MG PATCH.TD24 TRANSDERMA (17:23)
[2024-03-06 17:24] VITALS: BP 138/93
[2024-03-06] MEDS: cloNIDine HCL 0.1 MG TABLET 0.05 MG PO (17:24)
[2024-03-06 20:00] VITALS: BP 129/64; PULSE 111; RESP 16; TEMP 36.2; O2SAT 94
[2024-03-06] MEDS: Lidocaine 4 % Patch ADH..PATCH 1 PATCH TRANSDERMA (21:19)
[2024-03-07 00:09] VITALS: PULSE 89; O2SAT 88
--- NOTE | 2024-03-07 00:10 | PC.RT ---
place don cpap for night. however prior to this pt sats were 82% on room air. pt should use oxygen during ambulation. pt sats did go up to 88% after placing on cpap. no resp distree noted. RN aware
[2024-03-07 01:41] VITALS: PULSE 96; O2SAT 82
--- NOTE | 2024-03-07 04:17 | PC.NURSE ---
Patient's O2 sats 88% on room air, able to increase to 93% with mindful breathing. Patient 1999 CIWA was 17 and she received Ativan 2 mg po with positive effect. Her Suboxone was held at HS due to the prn Ativan and scheduled Ativan. Dr. Richard, contract technical writer provider aware.
--- NOTE | 2024-03-07 05:04 | PC.NURSE ---
Checked patient's O2 sats, read 97% on pulse ox. Text sent to RT Vickey Davies and he said to turn the oxygen compressor down from 5L to 3L. Turned down )2 to 3L at 0503.
[2024-03-07] MEDS: Nicotine 21 MG PATCH.TD24 TRANSDERMA ×2 (07:20→16:15)
[2024-03-07] MEDS: LORazepam 1 MG TABLET 2 MG PO ×2 (07:26→13:52)
[2024-03-07] MEDS: Nicotine Polacrilex 2 MG GUM 4 MG BUCCAL ×4 (07:28→22:39)
[2024-03-07 08:00] VITALS: BP 128/67; PULSE 99; RESP 16; TEMP 36.6; O2SAT 86
[2024-03-07] MEDS: Fluticasone/Umeclidinium/Vilanterol 200/62.5/25 BLST.W.DEV 1 PUFF INHALE (09:02)
[2024-03-07] MEDS: Lidocaine 4 % Patch ADH..PATCH 1 PATCH TRANSDERMA ×2 (09:03→16:12)
[2024-03-07] MEDS: Gabapentin 300 MG CAPSULE PO ×3 (09:06→20:37)
[2024-03-07] MEDS: DULoxetine HCl 30 MG CAPSULE.DR PO ×2 (09:06→20:37)
[2024-03-07] MEDS: Folic Acid 1 MG TABLET PO (09:06)
[2024-03-07] MEDS: Hydroxychloroquine Sulfate 200 MG TABLET PO ×2 (09:06→20:37)
[2024-03-07] MEDS: Thiamine HCL 100 MG TABLET PO (09:06)
[2024-03-07] MEDS: risperiDONE 1 MG TABLET PO (09:06)
[2024-03-07] MEDS: Buprenorphine/Naloxone 4/1 mg FILM 1 FILM SUBLINGUAL (09:07)
--- NOTE | 2024-03-07 10:45 | HO.PSYCHPN ---
Subjective Subjective Date of Service: 03/07/24 Reason For Visit: Depression/SI Interim History: Met with patient; discussed with team mood better; she says admission has been helpful, saying I faced some stuff.. intermittent desatting. Patient reports that at home, if she lies down she uses her CPAP there. -discussed medical comorbidities and patient says she has good rapport with her outpatient providers and will follow up on her own with her warehouse incentive selector Dr. Mcnulty. Also says she has a March 11 appointment with her vascular provider and an upcoming PCP appointment. Mental Status Exam Mental Status Exam Narrative: Pt is alert and oriented; behavior is cooperative, friendly and calm; patient is not in distress; dressed in own attire with unkempt hair but adequate hygiene; mood is described as better and affect congruent, brighter; eye contact appropriate; Speech is normal rate, volume and prosody; no psychomotor retardation present; thought process is organized and goal directed; Thought content pertinent to relevant topics and without any delusional content, paranoid ideations or grandiosity; no SI/no HI, no AVH. Patients insight and judgment improved and fair Diagnostics Vital Signs (24Hr): Vital Signs - 24 hr 03/06/24 17:24 03/06/24 20:00 03/07/24 08:00 Temperature 97.1 F 97.9 F Pulse Rate 111 H 99 Respiratory Rate 16 16 Blood Pressure 138/93 H 129/64 128/67 Pulse Oximetry 94 86 L Oxygen Delivery Method Room Air Room Air BMI result Body Mass Index 36.9 Labs 03/03/24 22:51 03/08/24 09:59 Medications Medications Current Medications Acetaminophen (Acetaminophen 325 Mg Tablet) 650 mg PO Q6H PRN PRN Reason: Headache/Pain Mild Scale (1-3) Al Hydroxide/Mg Hydroxide (Magnesium Hydrox/Alum Hydrox 30 Ml Oral.Susp) 30 ml PO Q6H PRN PRN Reason: Heartburn/Nausea Albuterol Sulfate (Albuterol Sulfate 90 Mcg 8 Gm Inhaler) 2 puff INHALE Q4H PRN PRN Reason: wheezing Last Admin: 03/06/24 20:36 Dose: 2 puff Benzocaine (Throat Lozenge, Medicated Lozenge) 1 lozenge MUCOUS MEM Q2H PRN PRN Reason: Sore Throat Clonidine HCl (Clonidine Hcl 0.1 Mg Tablet) 0.05 mg PO QID PRN; Protocol PRN Reason: ANXIETY, PANIC OR WITHDRAWALS Last Admin: 03/06/24 17:24 Dose: 0.05 mg Duloxetine HCl (Duloxetine Hcl 30 Mg Capsule.Dr) 30 mg PO BID [facility] Last Admin: 03/07/24 09:06 Dose: 30 mg Fluticasone/Umeclidinium/Vilanterol (Fluticasone/Umeclidinium/Vilanterol 200/62.5/25 Blst.W.Dev) 1 puff INHALE RDAILY [facility] Last Admin: 03/07/24 09:02 Dose: 1 puff Folic Acid (Folic Acid 1 Mg Tablet) 1 mg PO DAILY [facility] Last Admin: 03/07/24 09:06 Dose: 1 mg Gabapentin (Gabapentin 300 Mg Capsule) 300 mg PO TID [facility] Last Admin: 03/07/24 09:06 Dose: 300 mg Hydroxychloroquine Sulfate (Hydroxychloroquine Sulfate 200 Mg Tablet) 200 mg PO BID [facility] Last Admin: 03/07/24 09:06 Dose: 200 mg Hydroxyzine HCl (Hydroxyzine Hcl 25 Mg Tablet) 25 mg PO Q6H PRN PRN Reason: Anxiety Last Admin: 03/05/24 08:37 Dose: 25 mg Hydroxyzine HCl (Hydroxyzine Hcl 25 Mg Tablet) 25 mg PO BID PRN PRN Reason: anxiety Lidocaine (Lidocaine 4 % Patch Adh..Patch) 1 patch TRANSDERMA DAILY [facility]; Protocol Last Admin: 03/07/24 09:03 Dose: 1 patch Lorazepam (Lorazepam 1 Mg Tablet) 1 mg PO Q2H PRN PRN Reason: CIWA 6-10 Last Admin: 03/06/24 14:25 Dose: 1 mg Lorazepam (Lorazepam 1 Mg Tablet) 2 mg PO Q2H PRN PRN Reason: CIWA 11 and above Last Admin: 03/07/24 07:26 Dose: 2 mg Lorazepam (Lorazepam 1 Mg Tablet) 1 mg PO TID [facility] Last Admin: 03/07/24 09:11 Dose: Not Given Magnesium Hydroxide (Milk Of Magnesia 30 Ml Oral.Susp) 30 ml PO DAILY PRN PRN Reason: Constipation Nicotine (Nicotine 21 Mg Patch.Td24) 21 mg TRANSDERMA DAILY PRN PRN Reason: smoking cessation Last Admin: 11/03/24 07:20 Dose: 21 mg Nicotine Polacrilex (Nicotine Polacrilex 2 Mg Gum) 4 mg BUCCAL Q2H PRN PRN Reason: Nicotine Cravings Last Admin: 03/07/24 09:07 Dose: 4 mg Olanzapine (Olanzapine 5 Mg Tablet) 5 mg PO TID PRN PRN Reason: agitation Risperidone (Risperidone 1 Mg Tablet) 1 mg PO DAILY [facility] Last Admin: 03/07/24 09:06 Dose: 1 mg Thiamine HCl (Thiamine Hcl 100 Mg Tablet) 100 mg PO DAILY [facility] Last Admin: 03/07/24 09:06 Dose: 100 mg Tizanidine HCl (Tizanidine Hcl 4 Mg Tablet) 2 mg PO DAILY PRN PRN Reason: Muscle Spasms Last Admin: 03/04/24 16:06 Dose: 2 mg Trazodone HCl (Trazodone Hcl 50 Mg Tablet) 50 mg PO BEDTIME MRX1 PRN PRN Reason: Insomnia Allergies Allergies Allergy/AdvReac Type Severity Reaction Status Date / Time No Known Allergies Allergy Verified 03/03/24 22:05 Assessment & Plan Assessment & Plan (1) MDD (major depressive disorder), recurrent severe, without psychosis: Status: Acute Code(s): F33.2 - Major depressive disorder, recurrent severe without psychotic features (2) Alcohol use disorder: Status: Acute Code(s): F10.90 - Alcohol use, unspecified, uncomplicated (3) Alcohol withdrawal: Status: Resolved Code(s): F10.939 - Alcohol use, unspecified with withdrawal, unspecified (4) Opioid use disorder: Status: Acute Code(s): F11.90 - Opioid use, unspecified, uncomplicated (5) ONI on CPAP: Status: Acute Code(s): G47.33 - Obstructive sleep apnea (adult) (pediatric) (6) Lupus erythematosus tumidus: Status: Acute Code(s): L93.0 - Discoid lupus erythematosus Plan pt is a 59 yo female with hx of ONI, Tumid Deirdre, early stage liver failure, COPD, alcohol/opioid use disorder, on Suboxone, who presents with depression and vague SI in face of intoxication and missing her son who a year ago from overdose. Pt reports she thought she would be able to handle it.. but says the grief resurfaced the last few weeks and she became depressed. She has been drinking excessively, up to 15-20 drinks per day and said she could not stop herself.. Pt also off suboxone post lipoma removal from her neck. This last week, intoxicated, she said she wishes she were so she could be with him. Pt explains now that although she did say such things, she never had any intention or plans to harm herself and was just lamenting and expressing her grief. She says she's feeling better now, no passive wish, and is getting back to her regular self. Pt is currently detoxing from alcohol and feels vulnerable to emotionality and agrees she needs hospitalization to further stabilize; she has hx of alcohol w/drawal seizures. She has been consistent with medications; would like to get back on suboxone (off for a week). Hospital course: 03/05 Patient desatting today, with O2 sats in the 80s; respiratory call to assess. [id number] Administrator wonders if Possibly due to restarting Suboxone so will lower dose; discussed with patient who agreed. -placed patient on nasal cannula with O2 2 L and patient started having normal O2 sats; able to come off oxygen and remained with stable O2 sats. Patient reports that her mood is still depressed and she is glad she came to the hospital. She discussed alcohol abuse and she acknowledged she is not sure if she is entirely ready to quit drinking. Still having withdrawal symptoms 03/06 Last night patient's O2 sat dropped to 82 %; policy writer contacted and discussed with charge nurse who said it was temporary, while she was lying down and once on CPAP returned to [facility]NL Reviewed labs and patient hemoglobin A1c 6.2, diabetic; discussed with patient who understood and said she would just address it with diet and exercise. Patient shared about chronic, intermittent bilateral knee pain; patient denies any history of trauma to the area policy writer examined and both knees seem mildly swollen. Patient reports that her mood is overall better and denies any SI. Her plan for sobriety is to go to AA. -continue CIWA and scheduled Ativan as patient still scoring and has history of withdrawal seizures 03/07 mood better; she says admission has been helpful, saying I faced some stuff.. intermittent desatting. Patient reports that at home, if she lies down she uses her CPAP there. -discussed medical comorbidities and patient says she has good rapport with her outpatient providers and will follow up on her own with her warehouse incentive selector Dr. Mcnulty. Also says she has a March 11 appointment with her vascular provider and an upcoming PCP appointment. PLAN: cv q15min continue home meds CIWA with scheduled and prn ativan (hx of w/drawal seizures) Hold Suboxone 4/1 mg B.I.D. (normally takes 8/1 T.I.D; sometimes skips afternoon dose and takes double dose at bedtime) HOLD 8/2mg prn that she can take at anytime, including with scheduled dose Labs from [place]: CBC, BUN/creatinine, lytes, calcium WNL LFTs mildly elevated Patient educated on: diagnosis, medication risk/benefits and medical condition Informed Consent: understands Reason for continued inpatient stay Substantial Risk for: stable for discharge and rapid decompensation Time Spent With Patient Time: Total time managing care of this patient today ____ minutes.
[2024-03-07] MEDS: Albuterol Sulfate 90 MCG 8 GM INHALER 2 PUFF INHALE ×2 (13:52→20:43)
[2024-03-07] MEDS: LORazepam 1 MG TABLET PO ×3 (15:57→20:37)
[2024-03-07 20:00] VITALS: BP 132/78; PULSE 116; RESP 17; TEMP 37.2; O2SAT 84
[2024-03-07] MEDS: Throat Lozenge, Medicated LOZENGE 1 LOZENGE MUCOUS MEM (20:43)
[2024-03-07 23:52] VITALS: PULSE 102; RESP 20; O2SAT 92
[2024-03-08] VITALS (12 sets, daily range): BP systolic 91–159; BP diastolic 57–75; PULSE 80–110; RESP 17–20; TEMP 36.3–37.1; O2SAT 85–97
--- NOTE | 2024-03-08 00:06 | PC.RT ---
pt had a SaO2 of 72 on room air while asleep without CPAP, placed on CPAP and 5L to get SaO2 to 92 %, RN aware
--- NOTE | 2024-03-08 02:15 | PC.NURSE ---
Addendum entered by Ignacio Bailey RN 03/08/24 06:41: RN checked patients oxygen sats overnight, lowest was 89%. Patient up this morning, alert/oriented, not scoring on CIWA but requesting lorazepam. Placed on 4L n/c for ambulation. Sats 91% on 4L currently. MD made aware of increased oxygen needs and need for sitter with oxygen this morning. WIll continue to monitor. Original Note: Report from dayshift that patients oxygen saturation was in the 80's today. Sats of 84% at 1900 while she was in bed laying down. Patient is coughing and sounds congested. PRN inhaler administered. Patient reports feeling like she has covid but states she never had covid. RN paged respiratory to place her on cpap for sleep. Patient was laying in bed sleeping when respiratory arrived with an oxygen sat of 72% at 2330 while respiratory was here. Patient placed on cpap with 5L supplemental oxygen and sats came up to 92%. Will continue to monitor oxygen sats overnight and page MD in the morning for continuous oxygen administration, 1:1 sitter orders and possible interventions.
[2024-03-08] MEDS: Nicotine Polacrilex 2 MG GUM 4 MG BUCCAL (05:46)
[2024-03-08] MEDS: Lidocaine 4 % Patch ADH..PATCH 1 PATCH TRANSDERMA (08:08)
[2024-03-08] MEDS: Folic Acid 1 MG TABLET PO (08:09)
[2024-03-08] MEDS: Thiamine HCL 100 MG TABLET PO (08:09)
[2024-03-08] MEDS: Gabapentin 300 MG CAPSULE PO ×3 (08:09→21:15)
[2024-03-08] MEDS: Hydroxychloroquine Sulfate 200 MG TABLET PO ×2 (08:09→21:15)
[2024-03-08] MEDS: DULoxetine HCl 30 MG CAPSULE.DR PO ×2 (08:09→21:15)
[2024-03-08] MEDS: risperiDONE 1 MG TABLET PO (08:09)
[2024-03-08] MEDS: LORazepam 1 MG TABLET PO ×3 (08:09→21:15)
[2024-03-08] MEDS: Fluticasone/Umeclidinium/Vilanterol 200/62.5/25 BLST.W.DEV 1 PUFF INHALE (08:30)
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
[2024-03-08 09:54] LABS: Influenza A PCR NEGATIVE (Negative); Influenza B PCR NEGATIVE (Negative); Resp Syncy Virus RNA Qual PCR NEGATIVE (Negative); SARS COV2 PCR INHOUSE NEGATIVE (Negative)
[2024-03-08 10:25] LABS: Anion Gap 13 (12-20); Blood Urea Nitrogen 14 mg/dL (9-16); Calcium 9.6 mg/dL (8.4-10.2); Carbon Dioxide 31 mmol/L (22-29); Chloride 102 mmol/L (96-108); Estimated Glomerular Filt Rate > 60; Glucose Random 111 mg/dL (60-115); Potassium 4.8 mmol/L (3.3-5.1); Sodium 141 mmol/L (135-145)
[2024-03-08] MEDS: iohexoL 350 MG/ML 100 ML INFUS..BTL 65 ML IV (12:06)
[2024-03-08] MEDS: Milk of Magnesia 30 ML ORAL.SUSP PO (13:04)
[2024-03-08] MEDS: Sennosides 8.6 MG TABLET 8.8 MG PO (13:07)
[2024-03-08] MEDS: cloNIDine HCL 0.1 MG TABLET 0.05 MG PO (13:09)
[2024-03-08] MEDS: hydrOXYzine HCL 25 MG TABLET PO (13:12)
--- NOTE | 2024-03-08 15:28 | MHC.RECOVRN ---
AUDIT-C Brief Intervention Pt had positive screen for unhealthy alcohol use on admission. Attempted to meet with pt to discuss alcohol use and offer resources, pt declined.
--- NOTE | 2024-03-08 22:29 | P.PNPSI_ITS ---
Subjective Subjective Date of Service: 03/08/24 Reason For Visit: Depression/SI Interim History: Met with patient; discussed with team Patient continues to report that her mood is improved. Discussed with respiratory who recommends home O2 assessment.? Patient does not think she really needs it but is amenable Hospitalist had seen patient for hypoxia; ordered chest CTA to rule out PE, pneumonia. Mental Status Exam Mental Status Exam Narrative: Pt is alert and oriented; behavior is cooperative, friendly and calm; patient is not in distress; dressed in own attire with unkempt hair but adequate hygiene; mood is described as good and affect congruent, brighter; eye contact appropriate; Speech is normal rate, volume and prosody; no psychomotor retardation present; thought process is organized and goal directed; Thought content pertinent to relevant topics and without any delusional content, paranoid ideations or grandiosity; no SI/no HI, no AVH. Patients insight and judgment improved and fair Diagnostics Vital Signs (24Hr): Vital Signs - 24 hr 03/07/24 23:52 03/08/24 00:00 03/08/24 02:40 Temperature Pulse Rate Respiratory Rate 20 Blood Pressure Pulse Oximetry 92 93 Oxygen Delivery Method CPAP CPAP Oxygen Flow Rate 5 5 03/08/24 05:20 03/08/24 06:03 03/08/24 08:00 Temperature 98.8 F Pulse Rate 96 Respiratory Rate 17 Blood Pressure 91/61 Pulse Oximetry 89 L 91 L 89 L Oxygen Delivery Method CPAP Nasal Cannula Room Air Oxygen Flow Rate 5 4 03/08/24 11:09 03/08/24 13:09 03/08/24 13:13 Temperature Pulse Rate 88 110 H Respiratory Rate 20 Blood Pressure 159/75 H Pulse Oximetry 95 85 L Oxygen Delivery Method Nasal Cannula Room Air Oxygen Flow Rate 1 03/08/24 13:14 03/08/24 16:00 03/08/24 20:00 Temperature 97.4 F 97.6 F Pulse Rate 80 81 Respiratory Rate 20 Blood Pressure 134/62 117/57 L Pulse Oximetry 91 L 94 97 Oxygen Delivery Method Nasal Cannula Nasal Cannula Room Air Oxygen Flow Rate 2 2 BMI result Body Mass Index 36.9 Labs 03/03/24 22:51 03/08/24 09:59 Labs: Laboratory Results - last 48 hr 03/08/24 03/08/24 09:59 Unknown Sodium 141 Potassium 4.8 Chloride 102 Carbon Dioxide 31 H Anion Gap 13 BUN 14 Creatinine 0.75 Estim Creat Clear Calc 97.0 Estimated GFR > 60 Random Glucose 111 Calcium 9.6 Influenza Type A (PCR) NEGATIVE Influenza Type B (PCR) NEGATIVE RSV RNA Qual (PCR) NEGATIVE SARS-CoV-2 RNA (RT-PCR) NEGATIVE Imaging Radiology Impressions: ITS Impressions Chest CTA 03/08/24 11:43 IMPRESSION: 1. No CT angiographic evidence of acute pulmonary embolism. 2. No pulmonary nodule, mass, or airspace consolidation. 3. Hepatic steatosis. VTE: Negative. Fleischner guidelines were followed. Electronically signed by: Rodrigo Sharma MD 03/08/2024 02:32 PM [facility] Medications Medications Current Medications Acetaminophen (Acetaminophen 325 Mg Tablet) 650 mg PO Q6H PRN PRN Reason: Headache/Pain Mild Scale (1-3) Al Hydroxide/Mg Hydroxide (Magnesium Hydrox/Alum Hydrox 30 Ml Oral.Susp) 30 ml PO Q6H PRN PRN Reason: Heartburn/Nausea Albuterol Sulfate (Albuterol Sulfate 90 Mcg 8 Gm Inhaler) 2 puff INHALE Q4H PRN PRN Reason: wheezing Last Admin: 03/07/24 20:43 Dose: 2 puff Benzocaine (Throat Lozenge, Medicated Lozenge) 1 lozenge MUCOUS MEM Q2H PRN PRN Reason: Sore Throat Last Admin: 03/07/24 20:43 Dose: 1 lozenge Clonidine HCl (Clonidine Hcl 0.1 Mg Tablet) 0.05 mg PO QID PRN; Protocol PRN Reason: ANXIETY, PANIC OR WITHDRAWALS Last Admin: 03/08/24 13:09 Dose: 0.05 mg Duloxetine HCl (Duloxetine Hcl 30 Mg Capsule.Dr) 30 mg PO BID [facility] Last Admin: 03/08/24 21:15 Dose: 30 mg Fluticasone/Umeclidinium/Vilanterol (Fluticasone/Umeclidinium/Vilanterol 200/62.5/25 Blst.W.Dev) 1 puff INHALE RDAILY [facility] Last Admin: 03/08/24 08:30 Dose: 1 puff Folic Acid (Folic Acid 1 Mg Tablet) 1 mg PO DAILY [facility] Last Admin: 03/08/24 08:09 Dose: 1 mg Gabapentin (Gabapentin 300 Mg Capsule) 300 mg PO TID [facility] Last Admin: 03/08/24 21:15 Dose: 300 mg Hydroxychloroquine Sulfate (Hydroxychloroquine Sulfate 200 Mg Tablet) 200 mg PO BID [facility] Last Admin: 03/08/24 21:15 Dose: 200 mg Hydroxyzine HCl (Hydroxyzine Hcl 25 Mg Tablet) 25 mg PO Q6H PRN PRN Reason: Anxiety Last Admin: 03/08/24 13:12 Dose: 25 mg Hydroxyzine HCl (Hydroxyzine Hcl 25 Mg Tablet) 25 mg PO BID PRN PRN Reason: anxiety Lidocaine (Lidocaine 4 % Patch Adh..Patch) 1 patch TRANSDERMA DAILY [facility]; Protocol Last Admin: 03/08/24 08:08 Dose: 1 patch Lorazepam (Lorazepam 1 Mg Tablet) 1 mg PO Q2H PRN PRN Reason: CIWA 6-10 Last Admin: 03/07/24 15:57 Dose: 1 mg Lorazepam (Lorazepam 1 Mg Tablet) 2 mg PO Q2H PRN PRN Reason: CIWA 11 and above Last Admin: 03/07/24 13:52 Dose: 2 mg Lorazepam (Lorazepam 1 Mg Tablet) 1 mg PO TID [facility] Last Admin: 03/08/24 21:15 Dose: 1 mg Magnesium Hydroxide (Milk Of Magnesia 30 Ml Oral.Susp) 30 ml PO DAILY PRN PRN Reason: Constipation Last Admin: 03/08/24 13:04 Dose: 30 ml Nicotine (Nicotine 21 Mg Patch.Td24) 21 mg TRANSDERMA DAILY PRN PRN Reason: smoking cessation Last Admin: 03/07/24 16:15 Dose: 21 mg Nicotine Polacrilex (Nicotine Polacrilex 2 Mg Gum) 4 mg BUCCAL Q2H PRN PRN Reason: Nicotine Cravings Last Admin: 03/08/24 05:46 Dose: 4 mg Olanzapine (Olanzapine 5 Mg Tablet) 5 mg PO TID PRN PRN Reason: agitation Risperidone (Risperidone 1 Mg Tablet) 1 mg PO DAILY [facility] Last Admin: 03/08/24 08:09 Dose: 1 mg Senna (Sennosides 8.6 Mg Tablet) 8.8 mg PO BEDTIME PRN PRN Reason: Constipation Last Admin: 03/08/24 13:07 Dose: 8.8 mg Thiamine HCl (Thiamine Hcl 100 Mg Tablet) 100 mg PO DAILY [facility] Last Admin: 03/08/24 08:09 Dose: 100 mg Tizanidine HCl (Tizanidine Hcl 4 Mg Tablet) 2 mg PO DAILY PRN PRN Reason: Muscle Spasms Last Admin: 03/04/24 16:06 Dose: 2 mg Trazodone HCl (Trazodone Hcl 50 Mg Tablet) 50 mg PO BEDTIME MRX1 PRN PRN Reason: Insomnia Allergies Allergies Allergy/AdvReac Type Severity Reaction Status Date / Time No Known Allergies Allergy Verified 03/03/24 22:05 Assessment & Plan Assessment & Plan (1) MDD (major depressive disorder), recurrent severe, without psychosis: Status: Acute Code(s): F33.2 - Major depressive disorder, recurrent severe without psychotic features (2) Alcohol use disorder: Status: Acute Code(s): F10.90 - Alcohol use, unspecified, uncomplicated (3) Alcohol withdrawal: Status: Resolved Code(s): F10.939 - Alcohol use, unspecified with withdrawal, unspecified (4) Opioid use disorder: Status: Acute Code(s): F11.90 - Opioid use, unspecified, uncomplicated (5) ONI on CPAP: Status: Acute Code(s): G47.33 - Obstructive sleep apnea (adult) (pediatric) (6) Lupus erythematosus tumidus: Status: Acute Code(s): L93.0 - Discoid lupus erythematosus Plan pt is a 59 yo female with hx of ONI, Tumid Deirdre, early stage liver failure, COPD, alcohol/opioid use disorder, on Suboxone, who presents with depression and vague SI in face of intoxication and missing her son who a year ago from overdose. Pt reports she thought she would be able to handle it.. but says the grief resurfaced the last few weeks and she became depressed. She has been drinking excessively, up to 15-20 drinks per day and said she could not stop herself.. Pt also off suboxone post lipoma removal from her neck. This last week, intoxicated, she said she wishes she were so she could be with him. Pt explains now that although she did say such things, she never had any intention or plans to harm herself and was just lamenting and expressing her grief. She says she's feeling better now, no passive wish, and is getting back to her regular self. Pt is currently detoxing from alcohol and feels vulnerable to emotionality and agrees she needs hospitalization to further stabilize; she has hx of alcohol w/drawal seizures. She has been consistent with medications; would like to get back on suboxone (off for a week). Hospital course: 03/05 Patient desatting today, with O2 sats in the 80s; respiratory call to assess. Women'S Activities Adviser wonders if Possibly due to restarting Suboxone so will lower dose; discussed with patient who agreed. -placed patient on nasal cannula with O2 2 L and patient started having normal O2 sats; able to come off oxygen and remained with stable O2 sats. Patient reports that her mood is still depressed and she is glad she came to the hospital. She discussed alcohol abuse and she acknowledged she is not sure if she is entirely ready to quit drinking. Still having withdrawal symptoms 03/06 Last night patient's O2 sat dropped to 82 %; junior technical writer contacted and discussed with charge nurse who said it was temporary, while she was lying down and once on CPAP returned to WNL Reviewed labs and patient hemoglobin A1c 6.2, diabetic; discussed with patient who understood and said she would just address it with diet and exercise. Patient shared about chronic, intermittent bilateral knee pain; patient denies any history of trauma to the area junior technical writer examined and both knees seem mildly swollen. Patient reports that her mood is overall better and denies any SI. Her plan for sobriety is to go to AA. -continue CIWA and scheduled Ativan as patient still scoring and has history of withdrawal seizures 03/07 mood better; she says admission has been helpful, saying I faced some stuff.. intermittent desatting. Patient reports that at home, if she lies down she uses her CPAP there. -discussed medical comorbidities and patient says she has good rapport with her outpatient providers and will follow up on her own with her sample shoe inspector and reworker Dr. Mcnulty. Also says she has a March 11 appointment with her vascular provider and an upcoming PCP appointment. 03/08 Patient continues to report that her mood is improved. Discussed with respiratory who recommends home O2 assessment.? Patient does not think she really needs it but is amenable -Hospitalist had seen patient for hypoxia; ordered chest CTA to rule out PE, pneumonia. Discussed with patient who agrees and reports has had contrast before without problems. PLAN: cv q15min continue home meds DC CIWA; detoxed without incident Will continue to hold Suboxone for now, given concern for sedation worsening desaturation; patient can follow-up with outpatient providers to which she agrees Labs from Wing: CBC, BUN/creatinine, lytes, calcium WNL LFTs mildly elevated Patient educated on: diagnosis, medication risk/benefits and medical condition Informed Consent: understands Reason for continued inpatient stay Substantial Risk for: stable for discharge and med/psych decompensation Time Spent With Patient Time: Total time managing care of this patient today ____ minutes.
[2024-03-09] VITALS (7 sets, daily range): BP systolic 110–148; BP diastolic 56–76; PULSE 69–83; RESP 15–21; TEMP 36.6–37; O2SAT 85–95
[2024-03-09] MEDS: Hydroxychloroquine Sulfate 200 MG TABLET PO ×2 (08:23→22:56)
[2024-03-09] MEDS: risperiDONE 1 MG TABLET PO (08:23)
[2024-03-09] MEDS: DULoxetine HCl 30 MG CAPSULE.DR PO ×2 (08:23→22:56)
[2024-03-09] MEDS: LORazepam 1 MG TABLET PO ×3 (08:23→22:56)
[2024-03-09] MEDS: Thiamine HCL 100 MG TABLET PO (08:23)
[2024-03-09] MEDS: Gabapentin 300 MG CAPSULE PO ×3 (08:23→22:56)
[2024-03-09] MEDS: Folic Acid 1 MG TABLET PO (08:23)
[2024-03-09] MEDS: Milk of Magnesia 30 ML ORAL.SUSP PO (08:37)
[2024-03-09] MEDS: Fluticasone/Umeclidinium/Vilanterol 200/62.5/25 BLST.W.DEV 1 PUFF INHALE (08:37)
[2024-03-09] MEDS: Nicotine 21 MG PATCH.TD24 TRANSDERMA (08:37)
[2024-03-09] MEDS: Albuterol Sulfate 90 MCG 8 GM INHALER 2 PUFF INHALE (08:37)
[2024-03-09] MEDS: Lidocaine 4 % Patch ADH..PATCH 1 PATCH TRANSDERMA (08:40)
[2024-03-09] MEDS: OLANZapine 5 MG TABLET PO (12:58)
[2024-03-09] MEDS: hydrOXYzine HCL 25 MG TABLET PO (12:58)
[2024-03-09] MEDS: cloNIDine HCL 0.1 MG TABLET 0.05 MG PO (12:58)
[2024-03-09] MEDS: Nicotine Polacrilex 2 MG GUM 4 MG BUCCAL (14:06)
--- NOTE | 2024-03-09 17:32 | P.PNPSI_ITS ---
Subjective Subjective Date of Service: 03/09/24 Reason For Visit: Depression/SI Interim History: Met with patient; discussed with team Patient reports she remains in good mood and would like to discharge soon. Again discussed medical comorbidities, negative CTA; patient reiterates that she will follow-up with her outpatient providers but agrees to remain for O2 study Mental Status Exam Mental Status Exam Narrative: Pt is alert and oriented; behavior is cooperative, friendly and calm; patient is not in distress; dressed in own attire with unkempt hair but adequate hygiene; mood is described as OK and affect congruent, little brighter; eye contact appropriate; Speech is a little slowed; normal volume and prosody; no substantial psychomotor retardation present; thought process is organized and goal directed; Thought content pertinent to relevant topics and without any delusional content, paranoid ideations or grandiosity; no SI/no HI, no AVH. Patients insight and judgment impaired. Diagnostics Vital Signs (24Hr): Vital Signs - 24 hr 03/08/24 20:00 03/08/24 23:40 03/09/24 08:00 Temperature 97.6 F 97.8 F Pulse Rate 81 77 Respiratory Rate 18 21 H Blood Pressure 117/57 L 148/73 H Pulse Oximetry 97 94 Oxygen Delivery Method Room Air Nasal Cannula Oxygen Flow Rate 2 03/09/24 12:58 03/09/24 13:05 03/09/24 13:06 Temperature Pulse Rate Respiratory Rate Blood Pressure 127/76 Pulse Oximetry 85 L 92 Oxygen Delivery Method Room Air Nasal Cannula Oxygen Flow Rate 03/09/24 14:44 Temperature Pulse Rate Respiratory Rate Blood Pressure Pulse Oximetry 90 L Oxygen Delivery Method Room Air Oxygen Flow Rate BMI result Body Mass Index 36.9 Labs 03/03/24 22:51 03/08/24 09:59 Labs: Laboratory Results - last 48 hr 03/08/24 03/08/24 09:59 Unknown Sodium 141 Potassium 4.8 Chloride 102 Carbon Dioxide 31 H Anion Gap 13 BUN 14 Creatinine 0.75 Estim Creat Clear Calc 97.0 Estimated GFR > 60 Random Glucose 111 Calcium 9.6 Influenza Type A (PCR) NEGATIVE Influenza Type B (PCR) NEGATIVE RSV RNA Qual (PCR) NEGATIVE SARS-CoV-2 RNA (RT-PCR) NEGATIVE Imaging Radiology Impressions: ITS Impressions Chest CTA 03/08/24 11:[address]: 1[address] angiographic evidence of acute pulmonary embolism. 2. No pulmonary nodule, mass, or airspace consolidation. 3. Hepatic steatosis. VTE: Negative. Fleischner guidelines were followed. Electronically signed by: Rodrigo Sharma MD 03/08/2024 02:32 PM [facility] [place] Medications Medications Current Medications Acetaminophen (Acetaminophen 325 Mg Tablet) 650 mg PO Q6H PRN PRN Reason: Headache/Pain Mild Scale (1-3) Al Hydroxide/Mg Hydroxide (Magnesium Hydrox/Alum Hydrox 30 Ml Oral.Susp) 30 ml PO Q6H PRN PRN Reason: Heartburn/Nausea Albuterol Sulfate (Albuterol Sulfate 90 Mcg 8 Gm Inhaler) 2 puff INHALE Q4H PRN PRN Reason: wheezing Last Admin: 03/09/24 08:37 Dose: 2 puff Benzocaine (Throat Lozenge, Medicated Lozenge) 1 lozenge MUCOUS MEM Q2H PRN PRN Reason: Sore Throat Last Admin: 03/07/24 20:43 Dose: 1 lozenge Clonidine HCl (Clonidine Hcl 0.1 Mg Tablet) 0.05 mg PO QID PRN; Protocol PRN Reason: ANXIETY, PANIC OR WITHDRAWALS Last Admin: 03/09/24 12:58 Dose: 0.05 mg Duloxetine HCl (Duloxetine Hcl 30 Mg Capsule.Dr) 30 mg PO BID [facility] [place] Last Admin: 03/09/24 08:23 Dose: 30 mg Fluticasone/Umeclidinium/Vilanterol (Fluticasone/Umeclidinium/Vilanterol 200/62.5/25 Blst.W.Dev) 1 puff INHALE RDAILY [facility] [place] Last Admin: 03/09/24 08:37 Dose: 1 puff Folic Acid (Folic Acid 1 Mg Tablet) 1 mg PO DAILY [facility] [place] Last Admin: 03/09/24 08:23 Dose: 1 mg Gabapentin (Gabapentin 300 Mg Capsule) 300 mg PO TID [facility] [place] Last Admin: 03/09/24 14:07 Dose: 300 mg Hydroxychloroquine Sulfate (Hydroxychloroquine Sulfate 200 Mg Tablet) 200 mg PO BID [facility] [place] Last Admin: 03/09/24 08:23 Dose: 200 mg Hydroxyzine HCl (Hydroxyzine Hcl 25 Mg Tablet) 25 mg PO Q6H PRN PRN Reason: Anxiety Last Admin: 03/09/24 12:58 Dose: 25 mg Hydroxyzine HCl (Hydroxyzine Hcl 25 Mg Tablet) 25 mg PO BID PRN PRN Reason: anxiety Lidocaine (Lidocaine 4 % Patch Adh..Patch) 1 patch TRANSDERMA DAILY [facility] [place]; Protocol Last Admin: 03/09/24 08:40 Dose: 1 patch Lorazepam (Lorazepam 1 Mg Tablet) 1 mg PO TID [facility] [place] Last Admin: 03/09/24 14:07 Dose: 1 mg Magnesium Hydroxide (Milk Of Magnesia 30 Ml Oral.Susp) 30 ml PO DAILY PRN PRN Reason: Constipation Last Admin: 03/09/24 08:37 Dose: 30 ml Nicotine (Nicotine 21 Mg Patch.Td24) 21 mg TRANSDERMA DAILY PRN PRN Reason: smoking cessation Last Admin: 03/09/24 08:37 Dose: 21 mg Nicotine Polacrilex (Nicotine Polacrilex 2 Mg Gum) 4 mg BUCCAL Q2H PRN PRN Reason: Nicotine Cravings Last Admin: 03/09/24 14:06 Dose: 4 mg Olanzapine (Olanzapine 5 Mg Tablet) 5 mg PO TID PRN PRN Reason: agitation Last Admin: 03/09/24 12:58 Dose: 5 mg Risperidone (Risperidone 1 Mg Tablet) 1 mg PO DAILY [facility] [place] Last Admin: 03/09/24 08:23 Dose: 1 mg Senna (Sennosides 8.6 Mg Tablet) 8.8 mg PO BEDTIME PRN PRN Reason: Constipation Last Admin: 03/08/24 13:07 Dose: 8.8 mg Thiamine HCl (Thiamine Hcl 100 Mg Tablet) 100 mg PO DAILY [facility] [place] Last Admin: 03/09/24 08:23 Dose: 100 mg Tizanidine HCl (Tizanidine Hcl 4 Mg Tablet) 2 mg PO DAILY PRN PRN Reason: Muscle Spasms Last Admin: 03/04/24 16:06 Dose: 2 mg Trazodone HCl (Trazodone Hcl 50 Mg Tablet) 50 mg PO BEDTIME MRX1 PRN PRN Reason: Insomnia Allergies Allergies Allergy/AdvReac Type Severity Reaction Status Date / Time No Known Allergies Allergy Verified 03/03/24 22:05 Assessment & Plan Assessment & Plan (1) MDD (major depressive disorder), recurrent severe, without psychosis: Status: Acute Code(s): F33.2 - Major depressive disorder, recurrent severe without psychotic features (2) Alcohol use disorder: Status: Acute Code(s): F10.90 - Alcohol use, unspecified, uncomplicated (3) Alcohol withdrawal: Status: Resolved Code(s): F10.939 - Alcohol use, unspecified with withdrawal, unspecified (4) Opioid use disorder: Status: Acute Code(s): F11.90 - Opioid use, unspecified, uncomplicated (5) ONI on CPAP: Status: Acute Code(s): G47.33 - Obstructive sleep apnea (adult) (pediatric) (6) Lupus erythematosus tumidus: Status: Acute Code(s): L93.0 - Discoid lupus erythematosus Plan pt is a 59 yo female with hx of ONI, Tumid Deirdre, early stage liver failure, COPD, alcohol/opioid use disorder, on Suboxone, who presents with depression and vague SI in face of intoxication and missing her son who a year ago from overdose. Pt reports she thought she would be able to handle it.. but says the grief resurfaced the last few weeks and she became depressed. She has been drinking excessively, up to 15-20 drinks per day and said she could not stop herself.. Pt also off suboxone post lipoma removal from her neck. This last week, intoxicated, she said she wishes she were so she could be with him. Pt explains now that although she did say such things, she never had any intention or plans to harm herself and was just lamenting and expressing her grief. She says she's feeling better now, no passive wish, and is getting back to her regular self. Pt is currently detoxing from alcohol and feels vulnerable to emotionality and agrees she needs hospitalization to further stabilize; she has hx of alcohol w/drawal seizures. She has been consistent with medications; would like to get back on suboxone (off for a week). Hospital course: 03/05 Patient desatting today, with O2 sats in the 80s; respiratory call to assess. Ladle Repairman wonders if Possibly due to restarting Suboxone so will lower dose; discussed with patient who agreed. -placed patient on nasal cannula with O2 2 L and patient started having normal O2 sats; able to come off oxygen and remained with stable O2 sats. Patient reports that her mood is still depressed and she is glad she came to the hospital. She discussed alcohol abuse and she acknowledged she is not sure if she is entirely ready to quit drinking. Still having withdrawal symptoms 03/06 Last night patient's O2 sat dropped to 82 %; procedure writer contacted and discussed with charge nurse who said it was temporary, while she was lying down and once on CPAP returned to WNL Reviewed labs and patient hemoglobin A1c 6.2, diabetic; discussed with patient who understood and said she would just address it with diet and exercise. Patient shared about chronic, intermittent bilateral knee pain; patient denies any history of trauma to the area procedure writer examined and both knees seem mildly swollen. Patient reports that her mood is overall better and denies any SI. Her plan for sobriety is to go to AA. -continue CIWA and scheduled Ativan as patient still scoring and has history of withdrawal seizures 03/07 mood better; she says admission has been helpful, saying I faced some stuff.. intermittent desatting. Patient reports that at home, if she lies down she uses her CPAP there. 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 Mcnulty. Also says she has a March 11 appointment with her vascular provider and an upcoming PCP appointment. 03/08 Patient continues to report that her mood is improved. Discussed with respiratory who recommends home O2 assessment.? Patient does not think she really needs it but is amenable -Hospitalist had seen patient for hypoxia; ordered chest CTA to rule out PE, pneumonia. Discussed with patient who agrees and reports has had contrast before without problems. 03/09 Patient reports she remains in good mood and would like to discharge soon. Again discussed medical comorbidities, negative CTA; patient reiterates that she will follow-up with her outpatient providers but agrees to remain for O2 study. Ladle Repairman agrees that patient has improved and is back to her baseline PLAN: cv q15min continue home meds DC CIWA; detoxed without incident Will continue to hold Suboxone for now, given concern for sedation worsening desaturation; patient can follow-up with outpatient providers to which she agrees Labs from [facility]: CBC, BUN/creatinine, lytes, calcium WNL LFTs mildly elevated Patient educated on: diagnosis, medication risk/benefits and medical condition Informed Consent: understands Reason for continued inpatient stay Substantial Risk for: stable for discharge Time Spent With Patient Time: Total time managing care of this patient today ____ minutes.
[2024-03-10 08:20] VITALS: BP 148/72; PULSE 89; RESP 16; TEMP 36.9; O2SAT 93
[2024-03-10] MEDS: Folic Acid 1 MG TABLET PO (08:42)
[2024-03-10] MEDS: risperiDONE 1 MG TABLET PO (08:42)
[2024-03-10] MEDS: Hydroxychloroquine Sulfate 200 MG TABLET PO ×2 (08:42→20:41)
[2024-03-10] MEDS: Gabapentin 300 MG CAPSULE PO ×3 (08:42→20:41)
[2024-03-10] MEDS: Fluticasone/Umeclidinium/Vilanterol 200/62.5/25 BLST.W.DEV 1 PUFF INHALE (08:42)
[2024-03-10] MEDS: LORazepam 1 MG TABLET PO ×3 (08:42→20:41)
[2024-03-10] MEDS: Thiamine HCL 100 MG TABLET PO (08:42)
[2024-03-10] MEDS: DULoxetine HCl 30 MG CAPSULE.DR PO ×2 (08:42→20:41)
--- NOTE | 2024-03-10 08:48 | PC.RT ---
Prior to pt being discharged, pt will need an overnight oximetry study. She will get a regular home 02 eval today to determine her needs at rest and for ambulation.
[2024-03-10] MEDS: Albuterol Sulfate 90 MCG 8 GM INHALER 2 PUFF INHALE (09:23)
[2024-03-10] MEDS: Nicotine 21 MG PATCH.TD24 TRANSDERMA (09:23)
[2024-03-10] MEDS: Milk of Magnesia 30 ML ORAL.SUSP PO (09:25)
[2024-03-10] MEDS: Nicotine Polacrilex 2 MG GUM 4 MG BUCCAL ×2 (09:26→13:01)
[2024-03-10 13:26] VITALS: O2SAT 92
[2024-03-10 15:24] VITALS: O2SAT 91
[2024-03-10] MEDS: OLANZapine 5 MG TABLET PO (16:18)
--- NOTE | 2024-03-10 17:12 | PC.NURSE ---
pt refused to wear oxygen and states, my breathing is fine . Pt educated on importance of proper oxygenation w/ poor effect. O2 sats have remained in the low 90's
[2024-03-10 17:26] VITALS: O2SAT 93
[2024-03-10 20:00] VITALS: BP 136/77; PULSE 95; RESP 16; O2SAT 93
[2024-03-10] MEDS: predniSONE 10 MG TABLET PO (20:27)
[2024-03-10] MEDS: Throat Lozenge, Medicated LOZENGE 1 LOZENGE MUCOUS MEM (20:41)
--- NOTE | 2024-03-10 23:29 | PC.RT ---
Placed on NOC Oximetry; 1L NC due to desaturation, RN aware. Sitter in room
[2024-03-11] MEDS: Throat Lozenge, Medicated LOZENGE 1 LOZENGE MUCOUS MEM (05:55)
[2024-03-11 08:24] VITALS: BP 149/96; PULSE 75; TEMP 36.4; O2SAT 95
[2024-03-11 08:41] VITALS: PULSE 95; PULSE 98; O2SAT 93; O2SAT 95
[2024-03-11] MEDS: Hydroxychloroquine Sulfate 200 MG TABLET PO (09:07)
[2024-03-11] MEDS: LORazepam 1 MG TABLET PO (09:08)
[2024-03-11] MEDS: risperiDONE 1 MG TABLET PO (09:08)
[2024-03-11] MEDS: DULoxetine HCl 30 MG CAPSULE.DR PO (09:08)
[2024-03-11] MEDS: Thiamine HCL 100 MG TABLET PO (09:08)
[2024-03-11] MEDS: Gabapentin 300 MG CAPSULE PO (09:08)
[2024-03-11] MEDS: Folic Acid 1 MG TABLET PO (09:08)
[2024-03-11] MEDS: Fluticasone/Umeclidinium/Vilanterol 200/62.5/25 BLST.W.DEV 1 PUFF INHALE (09:18)
--- NOTE | 2024-03-11 09:21 | P.DS_ITS ---
DS: Providers Provider Date of Service: 03/11/24 Date of admission: 03/04/24 09:31 Date of discharge: 03/11/24 Primary care physician: Compa Diane NP Attending physician on admission: Damion Roland Consults: 03/04/24 20:03 Addiction Medicine Routine Consulting Provider: Addiction Covering Reason for consultation: addiction consult-AUD 03/08/24 08:21 Consult to Hospitalist Routine Comment: Consulting Provider: Hospitalist Reason For Exam: low 02 stats: drop into 50's when lying down Attending physician on discharge: Rafael Lincoln DS: Diagnosis Discharge Diagnosis (1) MDD (major depressive disorder), recurrent severe, without psychosis: Status: Acute (2) Alcohol use disorder: Status: Acute (3) Alcohol withdrawal: Status: Resolved (4) Opioid use disorder: Status: Acute (5) ONI on CPAP: Status: Acute (6) Lupus erythematosus tumidus: Status: Acute DS: Medications Discharge Medications Home Medications: Home Medications ?Medication ?Instructions ?Recorded ?Confirmed buprenorphine 8 mg-naloxone 2 mg 3 film sublingual DAILY 03/04/24 03/04/24 sublingual film phenobarbital 30 mg tablet 30 mg PO BID 03/04/24 03/04/24 Previous Rx's ?Medication ?Instructions ?Recorded albuterol sulfate 90 mcg/actuation 2 puff inhalation Q4-6H PRN 03/11/24 aerosol inhaler (Ventolin HFA) wheezing 30 days #6.7 grams clonidine HCl 0.1 mg tablet 0.05 mg (1/2 x 0.1 mg) PO QID PRN 03/11/24 ANXIETY, PANIC OR WITHDRAWALS 30 days #90 tabs duloxetine 30 mg capsule,delayed 30 mg PO BID 30 days #60 caps 03/11/24 release fluticasone fur. 200 mcg-umeclid 1 ea inhalation DAILY 30 days #28 03/11/24 62.5 mcg-vilant 25 mcg ea inhalat.powder (Trelegy Ellipta) gabapentin 300 mg capsule 300 mg PO TID 30 days #90 caps 03/11/24 hydroxychloroquine 200 mg tablet 200 mg PO BID 30 days #60 tabs 03/11/24 hydroxyzine HCl 25 mg tablet 25 mg PO BID PRN anxiety 30 days 03/11/24 #60 tabs lidocaine 4 % topical patch 1 patch transdermal DAILY PRN knee 03/11/24 (Lidocaine Pain Relief) pain 30 days #30 ea nicotine (polacrilex) 4 mg gum 4 mg buccal Q2H 30 days #100 ea 03/11/24 nicotine 21 mg/24 hr daily 21 mg transdermal DAILY PRN 03/11/24 transdermal patch smoking cessation 28 days #28 ea risperidone 1 mg tablet 1 mg PO DAILY 30 days #30 tabs 03/11/24 sennosides 8.6 mg tablet (Senna 8.8 mg (1.0233 x 8.6 mg) PO 03/11/24 Lax) BEDTIME PRN Constipation 30 days #30 tabs tizanidine 2 mg tablet 2 mg PO DAILY PRN Muscle Spasms 30 03/11/24 days #30 tabs Mental Status Exam Mental Status Exam Narrative: Pt is alert and oriented; behavior is cooperative, friendly and calm; patient is not in distress; dressed in own attire with unkempt hair but adequate hygiene; mood is described as OK and affect congruent, little brighter; eye contact appropriate; Speech is normal volume, rate, prosody; no psychomotor retardation present; thought process is organized and goal directed; Thought content per tinent to relevant topics and without any delusional content, paranoid ideations or grandiosity; no SI/no HI, no AVH. Patients insight and judgment fair. Data Data Completed and Pending Completed studies during hospitalization [Text1]: 03/05/24 03/08/24 03/08/24 09:03 09:59 Unknown Sodium 141 Potassium 4.8 Chloride 102 Carbon Dioxide 31 H Anion Gap 13 BUN 14 Creatinine 0.75 Estim Creat Clear Calc 97.0 Estimated GFR > 60 Random Glucose 111 Estimat Average Glucose 131 Hemoglobin A1c % 6.2 H Calcium 9.6 Triglycerides 166 H Cholesterol 191 LDL Cholesterol, Calc 107 H HDL Cholesterol 51 TSH 1.40 Influenza Type A (PCR) NEGATIVE Influenza Type B (PCR) NEGATIVE RSV RNA Qual (PCR) NEGATIVE SARS-CoV-2 RNA (RT-PCR) NEGATIVE Imaging Diagnostic Imaging Impressions Chest CTA 03/08/24 11:[address]: 1[address] angiographic evidence of acute pulmonary embolism. 2. No pulmonary nodule, mass, or airspace consolidation. 3. Hepatic steatosis. VTE: Negative. Fleischner guidelines were followed. Electronically signed by: Rodrigo Sharma MD 03/08/2024 02:32 PM [facility] DS: Summary Hospital Course Hospital Course: pt is a 59 yo female with hx of ONI, Tumid Deirdre, early stage liver failure, COPD, alcohol/opioid use disorder, on Suboxone, who presents with depression and vague SI in face of intoxication and missing her son who a year ago from overdose. Pt reports she thought she would be able to handle it.. but says the grief resurfaced the last few weeks and she became depressed. She has been drinking excessively, up to 15-20 drinks per day and said she could not stop herself.. Pt also off suboxone post lipoma removal from her neck. This last week, intoxicated, she said she wishes she were so she could be with him. Pt explains now that although she did say such things, she never had any intention or plans to harm herself and was just lamenting and expressing her grief. She says she's feeling better now, no passive wish, and is getting back to her regular self. Pt is currently detoxing from alcohol and feels vulnerable to emotionality and agrees she needs hospitalization to further stabilize; she has hx of alcohol w/drawal seizures. She has been consistent with medications; would like to get back on suboxone (off for a week). Hospital course: 03/05 Patient desatting today, with O2 sats in the 80s; respiratory call to assess. Canvas Marker wonders if Possibly due to restarting Suboxone so will lower dose; discussed with patient who agreed. -placed patient on nasal cannula with O2 2 L and patient started having normal O2 sats; able to come off oxygen and remained with stable O2 sats. Patient reports that her mood is still depressed and she is glad she came to the hospital. She discussed alcohol abuse and she acknowledged she is not sure if she is entirely ready to quit drinking. Still having withdrawal symptoms 03/06 Last night patient's O2 sat dropped to 82 %; typewriter aligner contacted and discussed with charge nurse who said it was temporary, while she was lying down and once on CPAP returned to WNL Reviewed labs and patient hemoglobin A1c 6.2, diabetic; discussed with patient who understood and said she would just address it with diet and exercise. Patient shared about chronic, intermittent bilateral knee pain; patient denies any history of trauma to the area typewriter aligner examined and both knees seem mildly swollen. Patient reports that her mood is overall better and denies any SI. Her plan for sobriety is to go to AA. -continue CIWA and scheduled Ativan as patient still scoring and has history of withdrawal seizures 03/07 mood better; she says admission has been helpful, saying I faced some stuff.. intermittent desatting. Patient reports that at home, if she lies down she uses her CPAP there. -discussed medical comorbidities and patient says she has good rapport with her outpatient providers and will follow up on her own with her water pollution control inspector Dr. Mcnulty. Also says she has a March 11 appointment with her vascular provider and an upcoming PCP appointment. 03/08 Patient continues to report that her mood is improved. Discussed with respiratory who recommends home O2 assessment.? Patient does not think she really needs it but is amenable -Hospitalist had seen patient for hypoxia; ordered chest CTA to rule out PE, pneumonia (which was negative). Discussed with patient who agrees and reports has had contrast before without problems. 03/09 Patient reports she remains in good mood and would like to discharge soon. Again discussed medical comorbidities, negative CTA; patient reiterates that she will follow-up with her outpatient providers but agrees to remain for O2 study. Canvas Marker agrees that patient has improved and is back to her baseline Canvas Marker?and?patient?Discussed?at?length?her?medical?comorbidities.??Patient?is?we ll?aware?and?understands?them?well;?she?is in?good?communication?with?her?outpatient?providers?including??[facility],?her?pul break out worker, Dr. Valera who?handles?bIPAP?and?her?PCP,?nurse?practitioner?Fine (all?out?of[facility]). ?Discussed?patient's?home?oxygen Eval completed and pt only needs supplemental 02 with?BIPAP.?Patient?is?appreciative?of?help?received?on?the?unit,?however she?remains?confident?that?she?and ?her?outpatient?providers?can?continue?to?assess her?need?for?oxygen?and?says?will?follow?up. Also?discussed?newly?diagnosed?diabetes?with?elevated?hemoglobin?A1c;?patient?di d?not?want?to?start?any?medication?but?says?she?will Follow- up?with?her?PCP?and?work?on?diet?and?exercise. Patient has returned to baseline and is requesting discharge. She is detoxed without incident. Patient has home O2 assessment concluded that she only need supplemental oxygen at night with BiPAP which was discussed with patient and which she understands. She remains off of Suboxone which was held due to concerns for sedation worsening desaturations; patient understands and will restart with outpatient provider. Patient's mood is good and she feels back to her regular self. Patient has remained in good behavioral and impulse control inappropriate with peers and staff. While she remains vulnerable to relapse and decompensation, this is a chronic situation that will not change with longer inpatient stay; currently patient is ambivalent about sobriety but says she will continue to work on it. Patient is not in imminent risk for harm to self or others and is appropriate to return to the community for treatment. Her request for discharge honored. Status at Discharge Functional status at discharge: independent ambulation Overall status at discharge: patient is back to baseline Time Spent with Patient Time attestation: Total time managing care of this patient today ____ minutes. Time spent: Less than 30 minutes Discharge Plan Discharge Anticipated Discharge Date/Time: 03/11/24 11:50 Patient Disposition: Home, Self-Care Discharge Diagnosis: MDD, recurrent, severe without psychosis in full remission Referrals: [facility] with Danna Stubbs [Other] - 04/13/24 3:30 pm (*Telehealth*) [facility] Alexi [facility] [Other] - 1 Week (Therapy is recommended to add to your support system - give them a call to follow up with your intake. ) Moraima Durant [Other] - 1 Week (will call pt with appointment ) Compa Diane NP [Primary Care Provider] - 1 Week (will call pt with appointment) Kian Mcnulty MD [Physician] - 05/04/24 2:40 pm (in office appointment) Discharge Medications: New nicotine 21 mg/24 hr Patch 24 Hour 21 mg transdermal DAILY PRN (Reason: smoking cessation) 28 Days Qty: 28 0RF nicotine (polacrilex) 4 mg gum 4 mg buccal Q2H 30 Days Qty: 100 0RF sennosides [Senna Lax] 8.6 mg Tablet 8.8 mg PO BEDTIME PRN (Reason: Constipation) 30 Days Qty: 30 0RF lidocaine [Lidocaine Pain Relief] 4 % Adhesive Patch,Medicated 1 patch transdermal DAILY PRN (Reason: knee pain) 30 Days Qty: 30 0RF Protocol: Apply to: Apply to: left knee Continued phenobarbital 30 mg tablet 30 mg PO BID tizanidine 2 mg tablet 2 mg PO DAILY PRN (Reason: Muscle Spasms) 30 Days Qty: 30 0RF gabapentin 300 mg capsule 300 mg PO TID 30 Days Qty: 90 0RF hydroxyzine HCl 25 mg tablet 25 mg PO BID PRN (Reason: anxiety) 30 Days Qty: 60 0RF hydroxychloroquine 200 mg tablet 200 mg PO BID 30 Days Qty: 60 0RF albuterol sulfate [Ventolin HFA] 90 mcg/actuation HFA aerosol inhaler 2 puff INHALATION Q4-6H PRN (Reason: wheezing) 30 Days Qty: 6.7 0RF risperidone 1 mg tablet 1 mg PO DAILY 30 Days Qty: 30 0RF duloxetine 30 mg capsule,delayed release(DR/EC) 30 mg PO BID 30 Days Qty: 60 0RF Trelegy Ellipta 200-62.5-25 mcg blister with device 1 ea inhalation DAILY 30 Days Qty: 28 0RF clonidine HCl 0.1 mg tablet 0.05 mg PO QID PRN (Reason: ANXIETY, PANIC OR WITHDRAWALS) 30 Days Qty: 90 0RF Held buprenorphine-naloxone 8-2 mg film 3 film sublingual DAILY Hold Instructions: Resume on 03/17/24. BEFORE STARTING discuss with provider about slowly restarting this medication Discharge Orders: Discharge Order (Routine); Ordered 03/11/24 Ordered By: Damion Roland Diet: diabetic diet if willing Activity on Discharge: As tolerated Stand Alone Forms: Patient Portal Discharge page, Community Support Print Language: Amharic Activity Restrictions/Additional Instructions: 2L Oxygen, via bipap, at night. Care Plan Goals: Maintain mood and safe behaviors Take medications as prescribed Continue to pursue sobriety Practice coping skills Continue with outpatient providers and reach out to them as needed Health Concerns: Mood stability and behaviors Sobriety ONI on BIPAP: you need oxygen at night 2L with BIPAP. Diabetes: newly diagnosed with elevated HBA1C COPD Lupus Tumidus Plan of Treatment: Follow up with your PCP, your Oil Well Fishing Tool Technician (Dr. Mcnulty), psychiatric provider and other outpatient providers (Dr. Valera) regarding above concerns Take medications as prescribed 1) Suboxone: This was not continued since oxygen saturations were dropping. Discuss with outpt provider about SLOWLY restarting your Suboxone regimen. Assessment: Risk assessment at time of discharge:? Patient was interviewed prior to discharge and found to be fully oriented and without any SI or HI. Patient has improved insight and judgment and wants to continue treatment. Patient is not in imminent risk of harm to self or others and has a safety plan that includes presenting to the closest ER or calling 911 if feeling unsafe.? Patient has been observed closely by nursing and unit staff throughout admission; patient has not engaged in any behaviors that suggest dangerousness to self or others and has demonstrated appropriate behaviors and impulse control Discharge Date/Time: 03/11/24 10:58
[2024-03-11] MEDS: Naloxone HCl Nasal TAKE HOME 4 MG SPRAY 8 MG NOSTRILALT (09:22)
--- NOTE | 2024-03-11 11:57 | P.PNPSI_ITS ---
Subjective Subjective Date of Service: 03/11/24 Reason For Visit: Depression/SI Interim History: calm, cooperative, pleasant. discharging this morning. DC meds and scripts written by yohana reviewed. asking about ativan Rx, informed none would be provided, rationale given. denies safety concerns. aftercare appointments reviewed. per staff, no behavioral concerns overnight. Mental Status Exam Mental Status Exam Narrative: Pt is alert and oriented; behavior is cooperative, friendly and calm; patient is not in distress; dressed in own attire with unkempt hair but adequate hygiene; mood is described as OK and affect congruent, little brighter; eye contact appropriate; Speech is a little slowed; normal volume and prosody; no substantial psychomotor retardation present; thought process is organized and goal directed; Thought content pertinent to relevant topics and without any delusional content, paranoid ideations or grandiosity; no SI/no HI, no AVH. Patients insight and judgment impaired. Diagnostics Vital Signs (24Hr): Vital Signs - 24 hr 03/10/24 13:26 03/10/24 15:24 03/10/24 17:26 Temperature Pulse Rate Respiratory Rate Blood Pressure Pulse Oximetry 92 91 L 93 Oxygen Delivery Method Room Air Room Air Room Air Oxygen Flow Rate 03/10/24 20:00 03/11/24 08:24 Temperature 97.5 F Pulse Rate 95 75 Respiratory Rate 16 Blood Pressure 136/77 149/96 H Pulse Oximetry 93 95 Oxygen Delivery Method Nasal Cannula Room Air Oxygen Flow Rate 1 BMI result Body Mass Index 36.9 Labs 03/03/24 22:51 03/08/24 09:59 Imaging Radiology Impressions: ITS Impressions Chest CTA 03/08/24 11:43 IMPRESSION: 1. No CT angiographic evidence of acute pulmonary embolism. 2. No pulmonary nodule, mass, or airspace consolidation. 3. Hepatic steatosis. VTE: Negative. Fleischner guidelines were followed. Electronically signed by: Rodrigo Sharma MD 03/08/2024 02:32 PM [facility] Medications Allergies Allergies Allergy/AdvReac Type Severity Reaction Status Date / Time No Known Allergies Allergy Verified 03/03/24 22:05 Assessment & Plan Assessment & Plan (1) MDD (major depressive disorder), recurrent severe, without psychosis: Status: Acute Code(s): F33.2 - Major depressive disorder, recurrent severe without psychotic features (2) Alcohol use disorder: Status: Acute Code(s): F10.90 - Alcohol use, unspecified, uncomplicated (3) Alcohol withdrawal: Status: Acute Code(s): F10.939 - Alcohol use, unspecified with withdrawal, unspecified (4) Opioid use disorder: Status: Acute Code(s): F11.90 - Opioid use, unspecified, uncomplicated (5) ONI on CPAP: Status: Acute Code(s): G47.33 - Obstructive sleep apnea (adult) (pediatric) (6) Lupus erythematosus tumidus: Status: Acute Code(s): L93.0 - Discoid lupus erythematosus Plan pt is a 59 yo female with hx of ONI, Tumid Deirdre, early stage liver failure, COPD, alcohol/opioid use disorder, on Suboxone, who presents with depression and vague SI in face of intoxication and missing her son who a year ago from overdose. Pt reports she thought she would be able to handle it.. but says the grief resurfaced the last few weeks and she became depressed. She has been drinking excessively, up to 15-20 drinks per day and said she could not stop herself.. Pt also off suboxone post lipoma removal from her neck. This last week, intoxicated, she said she wishes she were so she could be with him. Pt explains now that although she did say such things, she never had any intention or plans to harm herself and was just lamenting and expressing her grief. She says she's feeling better now, no passive wish, and is getting back to her regular self. Pt is currently detoxing from alcohol and feels vulnerable to emotionality and agrees she needs hospitalization to further stabilize; she has hx of alcohol w/drawal seizures. She has been consistent with medications; would like to get back on suboxone (off for a week). Hospital course: 03/05 Patient desatting today, with O2 sats in the 80s; respiratory call to assess. Supervisor Vegetable Farming wonders if Possibly due to restarting Suboxone so will lower dose; discussed with patient who agreed. -placed patient on nasal cannula with O2 2 L and patient started having normal O2 sats; able to come off oxygen and remained with stable O2 sats. Patient reports that her mood is still depressed and she is glad she came to the hospital. She discussed alcohol abuse and she acknowledged she is not sure if she is entirely ready to quit drinking. Still having withdrawal symptoms 03/06 Last night patient's O2 sat dropped to 82 %; ghost writer contacted and discussed with charge nurse who said it was temporary, while she was lying down and once on CPAP returned to WNL Reviewed labs and patient hemoglobin A1c 6.2, diabetic; discussed with patient who understood and said she would just address it with diet and exercise. Patient shared about chronic, intermittent bilateral knee pain; patient denies any history of trauma to the area ghost writer examined and both knees seem mildly swollen. Patient reports that her mood is overall better and denies any SI. Her plan for sobriety is to go to . -continue CIWA and scheduled Ativan as patient still scoring and has history of withdrawal seizures 03/11: scripts in and DC order completed by yohana. DC info reviewed with pt. pt denies SI/HI/AVH. got ativan 1 TID on 03/09 and 03/10, one mg this morning. will not suffer dangerous withdrawal from this pattern of administration. discharge today as per plan. PLAN: cv q15min continue home meds CIWA with scheduled and prn ativan (hx of w/drawal seizures) Hold Suboxone 4/1 mg B.I.D. (normally takes 8/1 T.I.D; sometimes skips afternoon dose and takes double dose at bedtime) HOLD 8/2mg prn that she can take at anytime, including with scheduled dose Labs from [place]: CBC, BUN/creatinine, lytes, calcium WNL LFTs mildly elevated Reason for continued inpatient stay Substantial Risk for: rapid decompensation Time Spent With Patient Time: Total time managing care of this patient today __35__ minutes.
== END 2024-03-11 10:58 | disposition home or self-care (01) | DRG 885 ==
LOC: HO.ED 03-04 01:47 → HO.PM5 03-04 09:34
PROVIDERS: Physician Assistant; Admitting Provider Psychiatry & Neurology Psychiatry; Emergency Provider Emergency Medicine; PCP Nurse Practitioner Family; Visit Provider Psychiatry & Neurology Psychiatry
DX: F33.2 Major depressive disorder, recurrent severe without psychotic features (principal); R45.851 Suicidal ideations; F11.20 Opioid dependence, uncomplicated; E66.2 Morbid (severe) obesity with alveolar hypoventilation; F17.210 Nicotine dependence, cigarettes, uncomplicated; K59.09 Other constipation; Z71.6 Tobacco abuse counseling; J44.9 Chronic obstructive pulmonary disease, unspecified; K72.90 Hepatic failure, unspecified without coma; Z91.148 Patient's other noncompliance with medication regimen for other reason; Z20.822 Contact with and (suspected) exposure to COVID-19; Z63.4 Disappearance and death of family member; Z68.36 Body mass index [BMI] 36.0-36.9, adult; Z79.51 Long term (current) use of inhaled steroids; Z79.899 Other long term (current) drug therapy
CPT/HCPCS: 0241U; 36415; 71275; 80048; 80061; 80076; 80307; 81003; 83036; 84443; 85025; 94660; 99285; Q9967

== ENCOUNTER → 2024-03-04 09:31 | Outpatient (BNV) | payer MEDICARE, MEDICAID, SELFPAY | PROVIDERS: Admitting Provider Psychiatry & Neurology Psychiatry; Emergency Provider Emergency Medicine; PCP Nurse Practitioner Family; Visit Provider Physician Assistant | DX: R09.02 Hypoxemia (principal); K59.09 Other constipation | CPT/HCPCS: 99222 ==

== ENCOUNTER → 2024-03-04 09:31 | Outpatient (BNV) | payer MEDICARE, MEDICAID, SELFPAY | PROVIDERS: Admitting Provider Psychiatry & Neurology Psychiatry; Emergency Provider Emergency Medicine; PCP Nurse Practitioner Family; Visit Provider Psychiatry & Neurology Psychiatry | DX: F33.2 Major depressive disorder, recurrent severe without psychotic features (principal); F10.90 Alcohol use, unspecified, uncomplicated; F11.90 Opioid use, unspecified, uncomplicated | CPT/HCPCS: 90792; 99231; 99232; 99238; 99499 ==

== ENCOUNTER 2024-09-14 16:39 | Inpatient (IN) | payer MEDICARE, MEDICAID, SELFPAY ==
--- NOTE | 2024-09-14 16:48 | ECG_ITS ---
Test Reason : chest pain Blood Pressure : */* mmHG Vent. Rate : 96 BPM Atrial Rate : 96 BPM P-R Int : 154 ms QRS Dur : 80 ms QT Int : 376 ms P-R-T Axes : 61 -54 47 degrees QTcB Int : 475 ms Normal sinus rhythm Possible Left atrial enlargement Left anterior fascicular block Inferior infarct , age undetermined Abnormal ECG No previous ECGs available Referred By: Kierra Mckeon Electronically Signed By: THELMA JACK MD
--- NOTE | 2024-09-14 16:48 | ED_ITS ---
HPI - Psych General Chief Complaint: ETOH/Substance Use Stated Complaint: looking for detox Time Seen by Provider: 09/14/24 16:46 Source: patient, EMS, RN notes reviewed and old records reviewed Mode of arrival: EMS Limitations: no limitations History of Present Illness ED Provider: Gisela Mckeon PA-C HPI Narrative: 59-year-old female with history of COPD, active smoker, depression, lupus, ONI on CPAP, opiate use disorder, alcohol use disorder, cocaine use who presents to the ER via ambulance for detox from alcohol. she states she has been drinking 20 nips of whiskey per day and making herself sick with recurrent vomiting. She states her last drink was just prior to arrival. She wants to get help and stop drinking. She denies any hematemesis, melena, abdominal pain, chest pain, shortness of breath. PO intake has been adequate. She denied any other substance use. She has been noncompliant with all of her medications. She reports she was admitted here last fall for alcohol use disorder and it helped her. She was able to stay sober briefly but then relapsed. She lives with her boyfriend who also drinks alcohol. She reports ongoing depression for the last 2 years since the of her son from an overdose. Denies suicidal thoughts, has had them intermittently for the last 2 years. No history of attempts per her report today. MD complaint: feels depressed and alcohol abuse Onset (ago): month(s) Duration: constant History of same: Yes Relieving factors: medication Exacerbating factors: alcohol Context: recent alcohol abuse Associated psychiatric symptoms: depression Associated symptoms: nausea and vomiting Treatments prior to arrival: none Related Data Home Medications ?Medication ?Instructions ?Recorded ?Confirmed buprenorphine 8 mg-naloxone 2 mg 3 film sublingual DAILY 03/04/24 03/04/24 sublingual film phenobarbital 30 mg tablet 30 mg PO BID 03/04/24 03/04/24 Previous Rx's ?Medication ?Instructions ?Recorded albuterol sulfate 90 mcg/actuation 2 puff inhalation Q4-6H PRN 03/11/24 aerosol inhaler (Ventolin HFA) wheezing 30 days #6.7 grams clonidine HCl 0.1 mg tablet 0.05 mg (1/2 x 0.1 mg) PO QID PRN 03/11/24 ANXIETY, PANIC OR WITHDRAWALS 30 days #90 tabs duloxetine 30 mg capsule,delayed 30 mg PO BID 30 days #60 caps 03/11/24 release fluticasone fur. 200 mcg-umeclid 1 ea inhalation DAILY 30 days #28 03/11/24 62.5 mcg-vilant 25 mcg ea inhalat.powder (Trelegy Ellipta) gabapentin 300 mg capsule 300 mg PO TID 30 days #90 caps 03/11/24 hydroxychloroquine 200 mg tablet 200 mg PO BID 30 days #60 tabs 03/11/24 hydroxyzine HCl 25 mg tablet 25 mg PO BID PRN anxiety 30 days 03/11/24 #60 tabs lidocaine 4 % topical patch 1 patch transdermal DAILY PRN knee 03/11/24 (Lidocaine Pain Relief) pain 30 days #30 ea nicotine (polacrilex) 4 mg gum 4 mg buccal Q2H 30 days #100 ea 03/11/24 nicotine 21 mg/24 hr daily 21 mg transdermal DAILY PRN 03/11/24 transdermal patch smoking cessation 28 days #28 ea risperidone 1 mg tablet 1 mg PO DAILY 30 days #30 tabs 03/11/24 sennosides 8.6 mg tablet (Senna 8.8 mg (1.0233 x 8.6 mg) PO 03/11/24 Lax) BEDTIME PRN Constipation 30 days #30 tabs tizanidine 2 mg tablet 2 mg PO DAILY PRN Muscle Spasms 30 03/11/24 days #30 tabs Allergies Allergy/AdvReac Type Severity Reaction Status Date / Time No Known Allergies Allergy Verified 09/14/24 16:56 Review of Systems 2 Review of Systems: Yes all other systems are reviewed and are negative PMFSH Past Medical History Medical History (Updated 09/15/24 @ 10:36 by Trevon Mcclure MD) Chronic constipation Lupus erythematosus tumidus ONI on CPAP Opioid use disorder Alcohol use disorder MDD (major depressive disorder), recurrent severe, without psychosis Social History Social History Household Members: Significant Other Housing: Apartment Do you presently have visiting nurse or other home services: No Unable to assess alcohol history related to: Unable to respond Alcohol intake: current Alcohol intake frequency: 3 or more drinks per day Alcohol type: hard liquor Patient Tobacco Use Status: Current everyday Tobacco user Tobacco use type: Cigarette Cigarette Packs Per Day: 2 Cigarettes Per Day: 40.0 Smoked in Last 30 Days: Yes e-Cigarette/Vaping Use: Currently Using Second Hand Smoke Exposure: Yes Substance Use Type: Marijuana and Caffiene Advance Directives: No Advance Directives Information Provided: No Do you have a plan to hurt others: No Plan Patient : No service: No Sexual orientation: Straight/Heterosexual Physical Exam 2 Vital Signs: Vital Signs: Last Vital Signs Temp 97.9 F 09/15/24 10:33 Pulse 84 09/15/24 10:33 Resp 20 09/15/24 10:33 BP 157/59 H 09/15/24 10:33 Pulse Ox 99 09/15/24 10:33 O2 Del Method Room Air 09/15/24 10:33 O2 Flow Rate 2 09/15/24 06:06 BMI result Body Mass Index 35.4 Appearance: Alert. Oriented X3. Smells of alcohol, intoxicated Head: normocephalic, atraumatic. Eyes: Pupils equal, round and reactive to light. scleral injection bilaterally. ENT: Pharynx normal. No tonsillar swelling or exudate. Neck: Normal inspection. Neck supple. CVS: Tachycardic, regular rhythm, heart rate 110. Pulses normal. Respiratory: No respiratory distress. Breath sounds normal. Abdomen: Obese, Soft and nontender. +BS x4 Skin: Skin warm and dry. Normal skin color. Normal skin turgor. No rashes. Extremities: No lower extremity edema. No joint swelling. Neuro/psych: Oriented X 3. No motor deficit. No sensory deficit. CN II-XII intact. Normal speech and cognition. steady gait. Depressed mood. Course Reevaluation(s) Reevaluation #1: Time: 10:34 Date: 09/15/24 Provider: Trevon Mcclure MD Patient was waiting for care team eval for possible detox, patient is tremulous this morning despite multiple dose of benzodiazepine, she has a an anion gap acidosis, she is tachycardic, she has a also alcoholic hepatitis. I discussed the case with Kinjal Watts patient would be better inpatient for alcohol withdrawal, I discussed the case with the hospitalist Dr. To who accepted the patient Time: 10:34 Medications Administered Generic Name Dose Route Start Last Admin Trade Name Freq PRN Reason Stop Dose Admin Sodium Chloride 1,000 mls @ 120 mls/hr 09/15/24 10:15 09/15/24 10:21 Ns IVCONT 120 mls/hr .Q8H20M FAHAD Administration Nicotine Polacrilex 2 mg 09/14/24 16:58 09/15/24 08:31 Nicotine Polacrilex 2 Mg Gum BUCCAL 2 mg Q2H PRN Administration Nicotine Cravings Phenobarbital Sodium 246 mg 09/15/24 11:00 09/15/24 10:30 Phenobarbital Sodium 130 Mg/Ml Im Once IM 09/15/24 11:01 246 mg ONCE ONE Administration Protocol Discontinued Medications Generic Name Dose Route Start Last Admin Trade Name Freq PRN Reason Stop Dose Admin Lorazepam 2 mg 09/14/24 19:18 09/14/24 19:29 Lorazepam 1 Mg Tablet PO 09/14/24 19:19 2 mg ONCE ONE Administration Lorazepam 2 mg 09/15/24 05:07 09/15/24 05:12 Lorazepam 1 Mg Tablet PO 09/15/24 05:08 2 mg ONCE ONE Administration Lorazepam 2 mg 09/15/24 08:26 09/15/24 08:31 Lorazepam 1 Mg Tablet PO 09/15/24 08:27 2 mg ONCE ONE Administration Phenobarbital Sodium 130 mg 09/15/24 01:47 09/15/24 01:58 Phenobarbital Sodium 130 Mg/Ml Vial IM 09/15/24 01:48 130 mg ONCE ONE Administration Medical Decision Making Medical Decision Making MDM Narrative: 59-year-old female with history of COPD, depression, lupus, ONI on CPAP, opiate use disorder, alcohol use disorder, cocaine use who presents to the ER via ambulance for detox from alcohol. she states she has been drinking 20 nips of whiskey per day and making herself sick with recurrent vomiting. she arrived to the ER tachycardic, visibly intoxicated but with a steady gait. She wants to go smoke a cigarette. Nicotine replacement has been ordered. Basic lab workup ordered. She is high risk for withdrawal. She reports history of withdrawal in the past, withdrawal seizures. Will monitor CIWAs q.4. She is not suicidal at this time Differential Diagnosis Differential Diagnoses: The differential diagnosis associated with the presentation includes Acute alcohol intoxication, alcohol use disorder, polysubstance use, alcohol withdrawal, alcoholic hepatitis Admission/Observation Consideration of admission/observation: Escalation of care including admission/observation considered Lab Data 09/14/24 18:33 09/14/24 18:33 Labs: Lab Results 09/14/24 09/14/24 09/14/24 Range/Units 18:33 19:17 19:18 WBC 4.6 L (4.8-10.8) X10*3/uL RBC 4.49 (4.20-5.50) X10*6/uL Hgb 16.0 (12.0-16.0) g/dl Hct 44.5 (37.0-47.0) % MCV 99.1 H (80.0-98.0) fL MCH 35.6 H (27.0-33.0) pg MCHC 36.0 H (31.0-35.0) g/dl RDW 15.3 (11.0-16.0) % Plt Count 185 D (160-400) X10*3/uL MPV 9.4 (9.4-12.3) fL Immature Gran % (Auto) 0.2 (0.0-0.4) % Neut % (Auto) 39.5 L (45-73) % Lymph % (Auto) 41.5 H (20-40) % [place] % (Auto) 16.0 H (2-11) % Eos % (Auto) 1.3 (0-4) % Baso % (Auto) 1.5 (0-2) % Lymph # (Auto) 1.9 (1.2-4.9) X10*3/uL [place] # (Auto) 0.7 (0.1-1.2) X10*3/uL Eos # (Auto) 0.1 (0.0-0.4) X10*3/uL Baso # (Auto) 0.1 (0.0-0.2) X10*3/uL Abs Immat Gran (auto) 0.01 (0.00-0.03) X10*3/uL Absolute Neuts (auto) 1.8 L (2.0-8.3) x10*3/uL Absolute Nucleated RBC 0.000 (0.0-0.012) X10*3/uL Nucleated RBC % (auto) 0.0 (0.0-0.2) /100WBC Sodium 142 (135-145) mmol/L Potassium 3.5 D (3.3-5.1) mmol/L Chloride 98 (96-108) mmol/L Carbon Dioxide 26 (22-29) mmol/L Anion Gap 22 H (12-20) BUN 7 L (9-16) mg/dL Creatinine 0.71 (0.5-1.4) mg/dL Estim Creat Clear Calc 103.7 Estimated GFR > 60 Random Glucose 121 H (60-115) mg/dL Calcium 8.5 D (8.4-10.2) mg/dL Magnesium 1.6 (1.6-2.6) mg/dL Total Bilirubin 0.8 (0.0-1.0) mg/dL Direct Bilirubin 0.3 (0.0-0.5) mg/dL AST 226 H (5-31) U/L ALT 165 H (0-31) U/L Alkaline Phosphatase 154 H (39-117) U/L Total Protein 7.2 (6.5-8.0) g/dL Albumin 4.1 (3.5-5.0) g/dL Urine Color Dark Yellow Urine Appearance Clear Urine pH 6.0 (5.0-9.0) Ur Specific [place] 1.015 (1.005-1.025) Urine Protein Trace (Neg-Trace) mg/dL Urine Glucose (UA) Negative (Negative) mg/dL Urine Ketones Trace (Negative) mg/dL Urine Blood Negative (Negative) Urine Nitrite Negative (Negative) Ur Leukocyte Esterase Trace H (Negative) Urine RBC 0-2 (0-2) /HPF Urine WBC 0-5 (0-5) /HPF Ur Squamous Epith Cells 3-5 (0-2) /HPF Urine Bacteria None Seen (None Seen) Hyaline Casts 3-5 (0-2) /LPF Urine Opiates Screen Not Detected (Not Detect) Ur Buprenorphine Scrn Positive H (Not Detect) ng/mL Ur Oxycodone Screen Not Detected (Not Detect) ng/mL Urine Methadone Screen Not Detected (Not Detect) ng/mL Urine Fentanyl Screen Not Detected (Not Detect) Ur Barbiturates Screen Not Detected (Not Detect) Ur Phencyclidine Scrn Not Detected (Not Detect) Ur Amphetamines Screen Not Detected (Not Detect) U Benzodiazepines Scrn Not Detected (Not Detect) Urine Cocaine Screen POSITIVE H (Not Detect) U Marijuana (THC) Screen POSITIVE H (Not Detect) Ethyl Alcohol 298 mg/dL Independent Interpretation I performed an independent interpretation of an: EKG Interpretation: ekg with normal sinus rhythm, HR 96 bpm, isolated t-wave inversion in V1, no ST segment elevations or depressions, normal QTc Independent Historian Clinical information obtained from an independent historian. History obtained from or confirmed by: EMS External Record Review External record reviewed: Inpatient record and Prior outpatient labs Prescription Management I considered prescription management with: Other (benzo, phenobarbital) Chronic Conditions Patient?s care impacted by: Other (ETOH use disorder, lupus) Critical Care Time Critical Care Time Critical Care Time: Yes Total Critical Care Time: 60 Attestation: Alcohol withdrawal requiring multiple dose of benzo and phenobarbital Discharge Plan Discharge Clinical Impression: Alcohol withdrawal, Acute alcoholic hepatitis, High anion gap Patient Disposition: Admitted As Inpatient Print Language: [place]
[2024-09-14 16:50] VITALS: BP 103/71; BP 152/100; PULSE 102; PULSE 112; RESP 18; TEMP 36.6; O2SAT 94; O2SAT 95; BMI 35.4
[2024-09-14] MEDS: Nicotine Polacrilex 2 MG GUM BUCCAL ×2 (17:08→19:29)
[2024-09-14 17:28] VITALS: BP 103/71; PULSE 112; RESP 18; TEMP 36.6; O2SAT 95
--- NOTE | 2024-09-14 17:33 | PC.NURSE ---
Pt comes to ED today via EMS for ETOH abuse and seeking detox. Pt is tearful on arrival and makes 2 attempts to exit the ED to smoke a cigarette. Pt is A&Ox3 and denies SI/HI at this time. Pt changed over into hospital attire by magazine supervisor [employer] and Security staff. Pt is resting quietly on stretcher. Nicotine gum ordered and dispense. Pt awaiting eval.
[2024-09-14 18:38] LABS: MANUAL DIFF FLAG NO
[2024-09-14 18:49] LABS: Basophils Absolute Auto 0.1 X10*3/uL (0.0-0.2); Basophils Percent Auto 1.5 % (0-2); Eosinophils Absolute Auto 0.1 X10*3/uL (0.0-0.4); Eosinophils Percent Auto 1.3 % (0-4); Hematocrit 44.5 % (37.0-47.0); Imm Gran Abs Auto 0.01 X10*3/uL (0.00-0.03); Imm Gran Pct Auto 0.2 % (0.0-0.4); Lymphocytes Absolute Auto 1.9 X10*3/uL (1.2-4.9); Lymphocytes Percent Auto 41.5 % (20-40); Mean Corpuscular Hemoglobin 35.6 pg (27.0-33.0); Mean Corpuscular Volume 99.1 fL (80.0-98.0); Mean Platelet Volume 9.4 fL (9.4-12.3); Monocytes Absolute Auto 0.7 X10*3/uL (0.1-1.2); Neutrophils Absolute Auto 1.8 x10*3/uL (2.0-8.3); Neutrophils Percent Auto 39.5 % (45-73); Platelet Count 185 X10*3/uL (160-400); Red Blood Count 4.49 X10*6/uL (4.20-5.50); Red Cell Distribution Width 15.3 % (11.0-16.0); White Blood Count 4.6 X10*3/uL (4.8-10.8)
[2024-09-14 19:00] LABS: Alanine Aminotransferase 165 U/L (0-31); Albumin Level 4.1 g/dL (3.5-5.0); Alkaline Phosphatase 154 U/L (39-117); Anion Gap 22 (12-20); Aspartate Amino Transferase 226 U/L (5-31); Bilirubin Direct 0.3 mg/dL (0.0-0.5); Bilirubin Total 0.8 mg/dL (0.0-1.0); Blood Urea Nitrogen 7 mg/dL (9-16); Calcium 8.5 mg/dL (8.4-10.2); Carbon Dioxide 26 mmol/L (22-29); Chloride 98 mmol/L (96-108); Creatinine Clr Calc Pharmacy 103.7; Estimated Glomerular Filt Rate > 60; Ethanol 298 mg/dL; Glucose Random 121 mg/dL (60-115); Magnesium 1.6 mg/dL (1.6-2.6); Potassium 3.5 mmol/L (3.3-5.1); Sodium 142 mmol/L (135-145); Total Protein 7.2 g/dL (6.5-8.0)
[2024-09-14 19:26] LABS: Appearance Urine Clear; Color Urine Dark Yellow; Glucose Urine UA Negative (Negative); Leukocyte Esterase Urine Trace (Negative); Nitrite Urine Negative (Negative); Specific Gravity - Urine 1.015 (1.005-1.025); UMIC TRIGGER UACC YES; Urine Blood Negative (Negative); Urine Ketones Trace mg/dL (Negative); Urine Protein Trace mg/dL (Neg-Trace)
[2024-09-14] MEDS: LORazepam 1 MG TABLET 2 MG PO (19:29)
[2024-09-14 19:40] LABS: Bacteria Urine None Seen (None Seen); RBC Urine 0-2 /HPF (0-2); WBC Urine 0-5 /HPF (0-5)
[2024-09-14 19:47] LABS: Amphetamine Screen Urine Not Detected (Not Detect); Barbiturates, Urine Not Detected (Not Detect); Benzodiazepines Screen Urine Not Detected (Not Detect); Buprenorphine Scr Positive (Not Detect); Cannabinoid Screen Urine POSITIVE (Not Detect); Cocaine Screen Urine POSITIVE (Not Detect); Fentanyl, urine Not Detected (Not Detect); Methadone Screen, Urine Not Detected (Not Detect); Opiate Screen Urine Not Detected (Not Detect); Oxycodone Screen Urine Not Detected (Not Detect); Phencyclidine Screen Urine Not Detected (Not Detect)
[2024-09-14 19:51] VITALS: PULSE 110; RESP 18; O2SAT 95
--- NOTE | 2024-09-14 21:49 | PC.NURSE ---
Pt resting comfortably on stretcher with CPAP in place. Phone call made to RT to have pt CPAP connected to oxygen.
[2024-09-14 21:53] VITALS: BP 125/79; PULSE 103; RESP 19; TEMP 36.9; O2SAT 92
[2024-09-15] VITALS (14 sets, daily range): BP systolic 143–174; BP diastolic 59–98; PULSE 84–110; RESP 12–22; TEMP 35.7–37; O2SAT 89–99; BMI 35.1
--- NOTE | 2024-09-15 01:52 | PC.NURSE ---
PABLOWA score 6, ED provider Pulido informed.
[2024-09-15] MEDS: PHENobarbitaL sodium 130 MG/ML VIAL IM ×2 (01:58→20:41)
--- NOTE | 2024-09-15 01:59 | PC.NURSE ---
Patient medicated with Phenobarb 130 mg IM per MAR for CIWA score 6.
--- NOTE | 2024-09-15 05:09 | PC.NURSE ---
Dr. Martel informed [place] [id number].
[2024-09-15] MEDS: LORazepam 1 MG TABLET 2 MG PO ×2 (05:12→08:31)
--- NOTE | 2024-09-15 05:14 | PC.NURSE ---
Patient medicated with Lorazepam 2 mg PO.
--- NOTE | 2024-09-15 05:30 | PC.NURSE ---
Patient currently resting on stretcher bed, eyes closed, VSS, even chest wall rise and fall, call rivera in patient's reach.
[2024-09-15] MEDS: Nicotine Polacrilex 2 MG GUM BUCCAL (08:31)
--- NOTE | 2024-09-15 08:52 | PC.NURSE ---
Care of Pt assumed at change of shift. Pt rests comfortably with eyes closed for most of the early AM with CPAP on. Breakfast tray provided at bedside. Upon waking, Pt is anxious and requests medications. CIWA = 10 Pt reports Phenobarbital is ineffective in treating her symptoms and requests Ativan. Consult with Dr. Mcclure and 2mg Ativan ordered and administered. Pt requests Nicotine gum. Pt awaiting Recovery and Care Team consults.
[2024-09-15] MEDS: 0.9 % Sodium Chloride 1,000 ML 120 ML IVCONT ×2 (10:21→20:03)
[2024-09-15] MEDS: PHENobarbitaL sodium 130 MG/ML IM ONCE 246 MG IM (10:30)
[2024-09-15 10:50] LABS: VBG Base Excess 12.1 mmol/L; VBG HCO3 37 mmol/L (22-26); VBG pCO2 47 mmHg; VBG pH 7.49 (7.32-7.43); VBG pO2 47 mmHg
[2024-09-15 10:50] LABS: Venous Blood Gas Refer to POC result
--- NOTE | 2024-09-15 11:05 | PM.IMHP ---
History of Present Illness Date of Service: 09/15/24 Attending physician on admission: Stanton To Chief Complaint: ETOH withdrawal Patient is a 59-year-old female with a PMH significant for Lupus erythematosus tumidus, ONI on CPAP, opioid use disorder, alcohol use disorder, major depression and COPD presented to ED for detox from alcohol. she reports she has been drinking 20 nips of whiskey per day and made herself sick with recurrent vomiting. On exam no reported nausea or vomiting. On admit to the ER she had tachycardia, was visibly intoxicated. She is using a CPAP at present time, denies any SOB. She has a history of COPD for which she takes Trelegy and Ventolin as needed. Patient reports that she is taking Suboxone 3 films daily in the morning. She has not received this. EKG with normal sinus rhythm, no ST segment elevations or depressions, normal QTc. She has macrocytosis with a normal H and H. blood gases reveal pH of 7.49 NaHCO3 of 37, with a anion gap of 22. AST/ALT to 266/165, alk-phos 154. Urine with trace leukocyte esterase. Urine tox screen positive for buprenorphine, cocaine and marijuana. Viral panel negative. Previous admission in the fall for alcohol use disorder and she was able to stay sober briefly but relapsed, she has been depressed since the of her son 2 years ago. In the ED she received 6 mg of lorazepam with continued evidence of withdrawal including significant tremors, she was started on phenobarbital protocol. Monitored on tele, received IV fluids. Patient will be admitted for ETOH withdrawal, she wishes to detox from alcohol. Review of Systems Review of Systems: Denies any shortness of breath, chest pain, dizziness, lightheadedness, mild abdominal discomfort, No nausea vomiting or diarrhea. No hematemesis, melena COUNTS INCLUDE 234 BEDS AT THE [facility] Medical History (Updated 09/15/24 @ 10:36 by Trevon Mcclure MD) Chronic constipation Lupus erythematosus tumidus ONI on CPAP Opioid use disorder Alcohol use disorder MDD (major depressive disorder), recurrent severe, without psychosis Functional capacity: independent ambulation Social History Household Members: Significant Other Housing: Apartment Do you presently have visiting nurse or other home services: No Unable to assess alcohol history related to: Unable to respond Alcohol intake: current Alcohol intake frequency: 3 or more drinks per day Alcohol type: hard liquor Patient Tobacco Use Status: Current everyday Tobacco user Tobacco use type: Cigarette Cigarette Packs Per Day: 2 Cigarettes Per Day: 40.0 Smoked in Last 30 Days: Yes e-Cigarette/Vaping Use: Currently Using Second Hand Smoke Exposure: Yes Substance Use Type: Marijuana and Caffiene Advance Directives: No Advance Directives Information Provided: No Do you have a plan to hurt others: No Plan Patient : No service: No Sexual orientation: Straight/Heterosexual Meds Allergies Allergy/AdvReac Type Severity Reaction Status Date / Time No Known Allergies Allergy Verified 09/14/24 16:56 Active Medications: Current Medications Acetaminophen (Acetaminophen 325 Mg Tablet) 650 mg PO Q6H PRN PRN Reason: Pain, Mild 1-3,fever,headache Buprenorphine/Naloxone (Buprenorphine/Naloxone 8/2 Mg Film) 3 film SUBLINGUAL DAILY FAHAD Calcium Carbonate (Calcium Carbonate 750 Mg Tab.Chew) 750 mg PO Q4H PRN PRN Reason: Heartburn Sodium Chloride (Ns) 1,000 mls @ 120 mls/hr IVCONT .Q8H20M FAHAD Last Admin: 09/15/24 10:21 Dose: 120 mls/hr Magnesium Hydroxide (Milk Of Magnesia 30 Ml Oral.Susp) 30 ml PO DAILY PRN PRN Reason: Constipation Melatonin (Melatonin 3 Mg Tablet) 6 mg PO BEDTIME PRN PRN Reason: Insomnia Nicotine Polacrilex (Nicotine Polacrilex 2 Mg Gum) 2 mg BUCCAL Q2H PRN PRN Reason: Nicotine Cravings Last Admin: 09/15/24 08:31 Dose: 2 mg Pharmacy Consult (Consult Rx Etoh Phenob Im/Po) 1 each MISCELLANE ONCE PRN; Protocol PRN Reason: Consult order Phenobarbital (Phenobarbital 15 Mg Tablet) 45 mg PO BID FAHAD; Protocol Stop: 09/17/24 21:01 Phenobarbital (Phenobarbital 15 Mg Tablet) 15 mg PO BID FAHAD; Protocol Stop: 09/19/24 21:01 Phenobarbital (Phenobarbital 15 Mg Tablet) 15 mg PO DAILY FAHAD; Protocol Stop: 09/21/24 09:01 Phenobarbital Sodium (Phenobarbital Sodium 130 Mg/Ml Vial Im Q3hx2) 185 mg IM Q3H FAHAD; Protocol Stop: 09/15/24 17:01 Sodium Chloride (0.9 % Sodium Chloride Flush 3 Ml Syringe) 3 ml IVFLUSH QSHIFT [facility] Home Medications ?Medication ?Instructions ?Recorded ?Confirmed ?Last Taken ?Type buprenorphine 8 mg-naloxone 2 mg 3 film sublingual DAILY 03/04/24 03/04/24 03/03/24 History sublingual film phenobarbital 30 mg tablet 30 mg PO BID 03/04/24 03/04/24 03/03/24 History Physical Exam Vital Signs and Narrative: Vital Signs: Last Vital Signs Temp 97.9 F 09/15/24 10:33 Pulse 84 09/15/24 10:33 Resp 20 09/15/24 10:33 BP 157/59 H 09/15/24 10:33 Pulse Ox 99 09/15/24 10:33 O2 Del Method Room Air 09/15/24 10:33 O2 Flow Rate 2 09/15/24 06:06 BMI result Body Mass Index 35.4 Alert and oriented X3, able to give good history. Neuro: CN II-X11 intact, no deficits, visual acuity intact. Moves all extremities, tremulous EYES: PERRLA, EOM intact ENT: hearing intact, uvula midline, lips moist Cardiac: S1 S2 RRR, no murmur, no edema in Lower ext Pulmonary: lungs clear to auscultation, No increased WOB. Wearing a CPAP. Abdominal: BS active in all 4 quadrants, no guarding, tenderness, rebounding, obese abdomen. MSK: Strength 5/5 upper and lower extremities, moves all extremities : no CVA tenderness no bladder distension Extremities: no edema in lower extremities Psych: Quiet and cooperative, Skin: Warm and dry, Intact Results Labs 09/14/24 18:33 09/14/24 18:33 Labs: Laboratory Results - last 24 hr 09/14/24 09/14/24 09/14/24 18:33 19:17 19:18 MCV 99.1 H MCH 35.6 H MCHC 36.0 H RDW 15.3 Plt Count 185 D MPV 9.4 Immature Gran % (Auto) 0.2 Neut % (Auto) 39.5 L Lymph % (Auto) 41.5 H [place] % (Auto) 16.0 H Eos % (Auto) 1.3 Baso % (Auto) 1.5 Lymph # (Auto) 1.9 [place] # (Auto) 0.7 Eos # (Auto) 0.1 Baso # (Auto) 0.1 Abs Immat Gran (auto) 0.01 Absolute Neuts (auto) 1.8 L Absolute Nucleated RBC 0.000 Nucleated RBC % (auto) 0.0 VBG pH VBG pCO2 VBG pO2 VBG HCO3 VBG O2 Saturation VBG Base Excess Anion Gap 22 H Estim Creat Clear Calc 103.7 Estimated GFR > 60 Random Glucose 121 H Calcium 8.5 D Magnesium 1.6 Total Bilirubin 0.8 Direct Bilirubin 0.3 AST 226 H ALT 165 H Alkaline Phosphatase 154 H Total Protein 7.2 Albumin 4.1 Urine Color Dark Yellow Urine Appearance Clear Urine pH 6.0 Ur Specific [place] 1.015 Urine Protein Trace Urine Glucose (UA) Negative Urine Ketones Trace Urine Blood Negative Urine Nitrite Negative Ur Leukocyte Esterase Trace H Urine RBC 0-2 Urine WBC 0-5 Ur Squamous Epith Cells 3-5 Urine Bacteria None Seen Hyaline Casts 3-5 Urine Opiates Screen Not Detected Ur Buprenorphine Scrn Positive H Ur Oxycodone Screen Not Detected Urine Methadone Screen Not Detected Urine Fentanyl Screen Not Detected Ur Barbiturates Screen Not Detected Ur Phencyclidine Scrn Not Detected Ur Amphetamines Screen Not Detected U Benzodiazepines Scrn Not Detected Urine Cocaine Screen POSITIVE H U Marijuana (THC) Screen POSITIVE H Ethyl Alcohol 298 09/15/24 10:47 MCV MCH MCHC RDW Plt Count MPV Immature Gran % (Auto) Neut % (Auto) Lymph % (Auto) [place] % (Auto) Eos % (Auto) Baso % (Auto) Lymph # (Auto) [place] # (Auto) Eos # (Auto) Baso # (Auto) Abs Immat Gran (auto) Absolute Neuts (auto) Absolute Nucleated RBC Nucleated RBC % (auto) VBG pH 7.49 H VBG pCO2 47 VBG pO2 47 VBG HCO3 37 H VBG O2 Saturation 75.0 VBG Base Excess 12.1 Anion Gap Estim Creat Clear Calc Estimated GFR Random Glucose Calcium Magnesium Total Bilirubin Direct Bilirubin AST ALT Alkaline Phosphatase Total Protein Albumin Urine Color Urine Appearance Urine pH Ur Specific [place] Urine Protein Urine Glucose (UA) Urine Ketones Urine Blood Urine Nitrite Ur Leukocyte Esterase Urine RBC Urine WBC Ur Squamous Epith Cells Urine Bacteria Hyaline Casts Urine Opiates Screen Ur Buprenorphine Scrn Ur Oxycodone Screen Urine Methadone Screen Urine Fentanyl Screen Ur Barbiturates Screen Ur Phencyclidine Scrn Ur Amphetamines Screen U Benzodiazepines Scrn Urine Cocaine Screen U Marijuana (THC) Screen Ethyl Alcohol Assessment and Plan (1) Alcohol withdrawal: Qualifiers: Complication of substance-induced condition: uncomplicated Qualified Code(s): F10.930 - Alcohol use, unspecified with withdrawal, uncomplicated Status: Acute Plan This is a 59-year-old female who presents after binge drinking since July, reports up to 20 nips a day as well as self-induced vomiting. She initially presented seeking help for detox from alcohol and wanted to alcohol withdrawal. She will be admitted to telemetry floor for further monitoring ETOH withdrawal/opioid use disorder Initially received some Ativan with no relief change to phenobarbital protocol Continue to monitor CIWA scale Start thiamine and folate and multivitamin, pepcid BID . Consult to addiction Medicine Patient is currently taking Suboxone 8/2 mg films 3 films in the morning. Elevated LFT's ALT/AST elevated- Follow labs LIkely related Low bicarb with anion gap, normal PH Likely related to ETOH related. Continue IV fluids, repeat labs pending. She is alert and able to answer questions 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 Followed by maintenance apprentice outpatient [facility] MDD/ETOH abuse Continue Home meds Addiction consult Followed by [facility] psychiatry COPD/ONI Not in acute exacerbation Continue CPAP at night Continue home Trelegy and albuterol as needed Tobacco abuse Continue and RT with nicotine patch and lozenges Attending Dr Stanton To FULL CODE DVT prophylaxis: Lovenox Quality Stroke Does the patient have a stroke diagnosis?: No VTE Prior VTE?: No VTE Risk Level:: Medical - moderate - high VTE Device Contraindication: N/A - Device Ordered VTE Drug Contraindication: N/A - Med Ordered
[2024-09-15] MEDS: Buprenorphine/Naloxone 8/2 mg FILM 3 FILM SUBLINGUAL (11:49)
[2024-09-15] MEDS: Folic Acid 1 MG TABLET PO (12:21)
[2024-09-15] MEDS: Multivitamin TABLET 1 TAB PO (12:21)
[2024-09-15] MEDS: Thiamine HCL 100 MG TABLET PO (12:21)
[2024-09-15] MEDS: PHENobarbitaL sodium 130 MG/ML VIAL IM Q3Hx2 185 MG IM ×2 (13:32→17:14)
[2024-09-15] MEDS: Enoxaparin Sodium 40 MG/0.4 ML SYRINGE SUBCUT (13:32)
--- NOTE | 2024-09-15 14:59 | PHA.MEDREC ---
Addendum entered by Theodore Hsu 09/17/24 12:32: reviewed Addendum entered by Antonio Dowling 09/17/24 12:26: added Carboxymethylcellulose sodium 1 drop ou QID and Olopatadine eye drops 1 drop ou BID per Dr To; Per patient pharmacy (as of 09/17/24) they did not have this medication in stock and are still waiting for it to come in their med order. Addendum entered by Theodore Hsu 09/15/24 15:14: reviewed Original Note: Pharmacy Consult ? Medication Reconciliation Pharmacy has completed the medication reconciliation. Spoke with patient and she was able to confirm her medicaiotns. Patient confimred she is filling all her medications at [facility]. [facility] conifmred they have not filled Duloxetine 30mg and Hydroxychloroquine 200mg since 03/2024, Risperidone 1mg since 02/2024 for 90 and Trelegy Ellipta since 06/29 for 30 days. Patient also confirmed she just went and saw her eye Dr yesterday and was told she has an eye infection and was prescribed 3 eye drops (per [facility]: Carboxymethylcellulose, Prednisolone and Olopatadine) but wasn't able to be filled due to the pharmacy not having those in stock but the pharmacy confirmed they will be filling them today.
[2024-09-15 17:09] LABS: Anion Gap 16 (12-20); Blood Urea Nitrogen 12 mg/dL (9-16); Calcium 8.8 mg/dL (8.4-10.2); Carbon Dioxide 29 mmol/L (22-29); Chloride 102 mmol/L (96-108); Creatinine Clr Calc Pharmacy 113.2; Estimated Glomerular Filt Rate > 60; Glucose Random 99 mg/dL (60-115); Potassium 3.7 mmol/L (3.3-5.1); Sodium 143 mmol/L (135-145)
[2024-09-15] MEDS: 0.9 % Sodium Chloride Flush 3 ML SYRINGE IVFLUSH ×2 (17:17→20:06)
[2024-09-15] MEDS: Nicotine Polacrilex 2 MG GUM 4 MG BUCCAL (17:43)
[2024-09-15] MEDS: cloNIDine HCL 0.1 MG TABLET PO (20:02)
[2024-09-15] MEDS: DULoxetine HCl 30 MG CAPSULE.DR PO (20:02)
[2024-09-15] MEDS: Hydroxychloroquine Sulfate 200 MG TABLET PO (20:02)
[2024-09-15] MEDS: Gabapentin 300 MG CAPSULE PO (20:02)
[2024-09-15] MEDS: Famotidine 20 MG TABLET PO (20:02)
[2024-09-16] VITALS (7 sets, daily range): BP systolic 125–148; BP diastolic 62–90; PULSE 83–110; RESP 16–20; TEMP 36.2–37.2; O2SAT 88–98
[2024-09-16] MEDS: 0.9 % Sodium Chloride 1,000 ML 120 ML IVCONT ×3 (04:01→19:21)
[2024-09-16 06:55] LABS: Alanine Aminotransferase 125 U/L (0-31); Albumin Level 3.7 g/dL (3.5-5.0); Alkaline Phosphatase 133 U/L (39-117); Anion Gap 13 (12-20); Aspartate Amino Transferase 176 U/L (5-31); Bilirubin Total 1.6 mg/dL (0.0-1.0); Blood Urea Nitrogen 14 mg/dL (9-16); Calcium 8.2 mg/dL (8.4-10.2); Carbon Dioxide 30 mmol/L (22-29); Chloride 104 mmol/L (96-108); Creatinine Clr Calc Pharmacy 104.6; Estimated Glomerular Filt Rate > 60; Glucose Random 138 mg/dL (60-115); Magnesium 1.3 mg/dL (1.6-2.6); Potassium 3.4 mmol/L (3.3-5.1); Sodium 144 mmol/L (135-145); Total Protein 6.4 g/dL (6.5-8.0)
[2024-09-16] MEDS: 0.9 % Sodium Chloride Flush 3 ML SYRINGE IVFLUSH ×2 (07:04→11:03)
[2024-09-16] MEDS: Magnesium Sulfate/H2O 2 GM/50 ML PIGGYBACK IV ×2 (07:06→12:09)
[2024-09-16] MEDS: Fluticasone/Umeclidinium/Vilanterol 200/62.5/25 BLST.W.DEV 1 PUFF INHALE (07:34)
--- NOTE | 2024-09-16 08:32 | P.PNIM_ITS ---
Subjective Subjective Date of Service: 09/16/24 Interval History: etoh withdrawal Review of Systems ciwa -5 seems anxious and tramulous. no other c/o. Review of Systems: Yes all other systems are reviewed and are negative Physical Exam 2 Vital Signs: Vital Signs: Last Vital Signs Temp 98.9 F 09/16/24 07:19 Pulse 104 H 09/16/24 07:35 Resp 18 09/16/24 07:35 BP 125/78 09/16/24 07:19 Pulse Ox 94 09/16/24 07:19 O2 Del Method CPAP 09/16/24 07:19 O2 Flow Rate 3 09/16/24 07:19 BMI result Body Mass Index 35.1 Appearance: Alert.? Oriented X3.?anxious and tramulous . cvs: rrr, [id number] . res: clear to auscultation ,no rhonchii or wheezing abd: no rebound or guarding ,nt, bs present. ext pulses present , no cyanosis . neuro: axo3 , nonfocal. Objective Data Active Medications Acetaminophen (Acetaminophen 325 Mg Tablet) 650 mg PO Q6H PRN PRN Reason: Pain, Mild 1-3,fever,headache Albuterol Sulfate (Albuterol Sulfate 90 Mcg 8 Gm Inhaler) 2 puff INHALE RQ4H PRN PRN Reason: Shortness of Breath/Wheezing Buprenorphine/Naloxone (Buprenorphine/Naloxone 8/2 Mg Film) 3 film SUBLINGUAL DAILY [facility] Last Admin: 09/15/24 11:49 Dose: 3 film Documented By: KEESHA Buprenorphine/Naloxone (Buprenorphine/Naloxone 8/2 Mg Film) 3 film SUBLINGUAL DAILY [facility] Calcium Carbonate (Calcium Carbonate 750 Mg Tab.Chew) 750 mg PO Q4H PRN PRN Reason: Heartburn Clonidine HCl (Clonidine Hcl 0.1 Mg Tablet) 0.1 mg PO TID PRN; Protocol PRN Reason: ANXIETY, PANIC OR WITHDRAWALS Last Admin: 09/15/24 20:02 Dose: 0.1 mg Documented By: LULÚ Duloxetine HCl (Duloxetine Hcl 30 Mg Capsule.) 30 mg PO BID [facility] Last Admin: 09/15/24 20:02 Dose: 30 mg Documented By: LULÚ Enoxaparin Sodium (Enoxaparin Sodium 40 Mg/0.4 Ml Syringe) 40 mg SUBCUT Q24H [facility] Last Admin: 09/15/24 13:32 Dose: 40 mg Documented By: KEESHA Famotidine (Famotidine 20 Mg Tablet) 20 mg PO BID [facility] Last Admin: 09/15/24 20:02 Dose: 20 mg Documented By: LULÚ Fluticasone/Umeclidinium/Vilanterol (Fluticasone/Umeclidinium/Vilanterol 200/62.5/25 Blst.W.Dev) 1 puff INHALE RDAILY [facility] Last Admin: 09/16/24 07:34 Dose: 1 puff Documented By: HÉCTOR Folic Acid (Folic Acid 1 Mg Tablet) 1 mg PO DAILY [facility] Last Admin: 09/15/24 12:21 Dose: 1 mg Documented By: KATH Gabapentin (Gabapentin 300 Mg Capsule) 300 mg PO TID [facility] Last Admin: 09/15/24 20:02 Dose: 300 mg Documented By: LULÚ Hydroxychloroquine Sulfate (Hydroxychloroquine Sulfate 200 Mg Tablet) 200 mg PO BID [facility] Last Admin: 09/15/24 20:02 Dose: 200 mg Documented By: LULÚ Hydroxyzine HCl (Hydroxyzine Hcl 25 Mg Tablet) 25 mg PO BID PRN PRN Reason: anxiety Sodium Chloride (Ns) 1,000 mls @ 120 mls/hr IVCONT .Q8H20M [facility] Last Admin: 09/16/24 04:01 Dose: 120 mls/hr Documented By: LULÚ Magnesium Sulfate (Magnesium Sulfate/H2o) 2 gm in 50 mls @ 25 mls/hr IV ONCE ONE Stop: 09/16/24 08:50 Last Admin: 09/16/24 07:06 Dose: 25 mls/hr Documented By: LULÚ Magnesium Hydroxide (Milk Of Magnesia 30 Ml Oral.Susp) 30 ml PO DAILY PRN PRN Reason: Constipation Melatonin (Melatonin 3 Mg Tablet) 6 mg PO BEDTIME PRN PRN Reason: Insomnia Multivitamins/Vitamin C (Multivitamin Tablet) 1 tab PO DAILY [facility] Last Admin: 09/15/24 12:21 Dose: 1 tab Documented By: KATH Nicotine Polacrilex (Nicotine Polacrilex 2 Mg Gum) 2 mg BUCCAL Q2H PRN PRN Reason: Nicotine Cravings Last Admin: 09/15/24 08:31 Dose: 2 mg Documented By: KATH Nicotine Polacrilex (Nicotine Polacrilex 2 Mg Gum) 4 mg BUCCAL Q2H PRN PRN Reason: Nicotine Cravings Last Admin: 09/15/24 17:43 Dose: 4 mg Documented By: KATHIA Ondansetron HCl (Ondansetron Hcl 4 Mg/2 Ml Vial) 4 mg IVPUSH Q8H PRN PRN Reason: Nausea and Vomiting Pharmacy Consult (Consult Rx Etoh Phenob Im/Po) 1 each MISCELLANE ONCE PRN; Protocol PRN Reason: Consult order Phenobarbital (Phenobarbital 15 Mg Tablet) 45 mg PO BID [facility]; Protocol Stop: 09/17/24 21:01 Phenobarbital (Phenobarbital 15 Mg Tablet) 15 mg PO BID [facility]; Protocol Stop: 09/19/24 21:01 Phenobarbital (Phenobarbital 15 Mg Tablet) 15 mg PO DAILY [facility]; Protocol Stop: 09/21/24 09:01 Risperidone (Risperidone 1 Mg Tablet) 1 mg PO DAILY [facility] Senna (Sennosides 8.6 Mg Tablet) 8.8 mg PO BEDTIME PRN PRN Reason: Constipation Sodium Chloride (0.9 % Sodium Chloride Flush 3 Ml Syringe) [facility] Last Admin: 09/15/24 20:06 Dose: 3 ml Documented By: LULÚ Sodium Chloride (0.9 % Sodium Chloride Flush 3 Ml Syringe) 3 ml IVFLUSH [facility] Last Admin: 09/15/24 23:50 Dose: Not Given Documented By: LULÚ Non-Admin Reason: IV Running Thiamine HCl (Thiamine Hcl 100 Mg Tablet) 100 mg PO DAILY [facility] Last Admin: 09/15/24 12:21 Dose: 100 mg Documented By: KATH Labs 09/14/24 18:33 09/16/24 06:00 Labs: Laboratory Results - last 24 hr 09/15/24 09/15/24 09/16/24 10:47 16:48 06:00 Hold Purple Top SEE NOTE VBG pH 7.49 H VBG pCO2 47 VBG pO2 47 VBG HCO3 37 H VBG O2 Saturation 75.0 VBG Base Excess 12.1 Anion Gap 16 13 Estim Creat Clear Calc 113.2 104.6 Estimated GFR > 60 > 60 Random Glucose 99 138 H Calcium 8.8 8.2 L D Magnesium 1.3 L* Total Bilirubin 1.6 H AST 176 H ALT 125 H Alkaline Phosphatase 133 H Total Protein 6.4 L Albumin 3.7 Assessment and Plan (1) Alcohol withdrawal: Status: Acute Assessment and Plan: 59-year-old female who presents after binge drinking since July, reports up to 20 nips a day as well as self-induced vomiting. She initially presented seeking help for detox from alcohol and wanted to alcohol withdrawal. She will be admitted to telemetry floor for further monitoring ETOH withdrawal/opioid use disorder Initially received some Ativan with no relief change to phenobarbital protocol Continue to monitor CIWA scale Start thiamine and folate and multivitamin, pepcid BID . Consult to addiction Medicine on Suboxone Elevated LFT's ALT/AST elevated- Follow labs LIkely related Low bicarb with anion gap, normal PH Likely related to ETOH related. Continue IV fluids. 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 Followed by veneer taper outpatient [facility] MDD/ETOH abuse Continue Home meds Addiction consult Followed by [facility] psychiatry COPD/ONI Not in acute exacerbation Continue CPAP at night Continue home Trelegy and albuterol as needed Tobacco abuse Continue and RT with nicotine patch and lozenges FULL CODE DVT prophylaxis: Lovenox ongoing need: Alcohol withdrawal-still symptomatic need phenobarb protocol, renal function electrolyte monitoring Quality Stroke Does the patient have a stroke diagnosis?: No VTE Prior VTE?: No VTE Risk Level:: Medical - moderate - high VTE Device Contraindication: N/A - Device Ordered VTE Drug Contraindication: N/A - Med Ordered
--- NOTE | 2024-09-16 08:33 | MHC.CM.PN ---
CM met with Patient at bedside and addressed IMM with her, providing Patient with the original and a copy has been placed on the chart. Patient lives in a house with her Boyfriend/Tr, uses CPAP through [facility] and picks up her Suboxone monthly @ [facility]. Home/resume said services vs additional Recovery Team intervention is the tentative plan and CM has initiated and will follow for dc planning. PCP/[facility] is [facility] and Patient will need assist with transport to home.
[2024-09-16] MEDS: Gabapentin 300 MG CAPSULE PO ×3 (11:02→19:13)
[2024-09-16] MEDS: risperiDONE 1 MG TABLET PO (11:02)
[2024-09-16] MEDS: Multivitamin TABLET 1 TAB PO (11:02)
[2024-09-16] MEDS: Thiamine HCL 100 MG TABLET PO (11:02)
[2024-09-16] MEDS: PHENobarbitaL 15 MG TABLET 45 MG PO ×2 (11:02→19:14)
[2024-09-16] MEDS: DULoxetine HCl 30 MG CAPSULE.DR PO ×2 (11:02→19:13)
[2024-09-16] MEDS: Hydroxychloroquine Sulfate 200 MG TABLET PO ×2 (11:03→19:13)
[2024-09-16] MEDS: Folic Acid 1 MG TABLET PO (11:03)
[2024-09-16] MEDS: Buprenorphine/Naloxone 8/2 mg FILM 1 FILM SUBLINGUAL ×3 (11:04→19:15)
[2024-09-16] MEDS: Famotidine 20 MG TABLET PO ×2 (11:04→19:14)
[2024-09-16] MEDS: Nicotine Polacrilex 2 MG GUM BUCCAL ×4 (11:30→22:03)
--- NOTE | 2024-09-16 12:00 | HO.ADDICT_ITS ---
History of Present Illness Date of Service: 09/16/2024 Chief Complaint: alcohol withdrawal Reason for Consult: AUD Sources of Information: patient interviewed and chart reviewed HPI Narrative: Patient is a 59 year old female with history of AUD, COPD and MDD. Currently medically admitted with acute alcohol withdrawal. Patient seen in room 458, she is awake, alert, engaged in interview. She reports she has been drinking alcohol since the age of 8. Prior to admission she had been drinking 20 nips of Ramiro Beam daily. States that July 11 was the anniversary of her son's , and her drinking tends to worsen around that time. At home she had been experiencing loose stools, nausea, vomiting. She also reports poor appetite, and poor sleep. Reports several ATS admissions, denies IOP/PHP, CSS or any other level of care. Previously active with AA--has not been in a while, log time . She states that she has a period of about 2 years where she abstained from alcohol --AA helpful with that. Reports occasional cocaine use. History of OUD, in sustained remission for many years--Suboxone 8mg TID She reports that her home and whole existence are depressing . She lives with her BF (who also has AUD) and his brother. She says she is not connected to a therapist, but does have a psychiatric provider who shes sees once per month. Reports at least 2 psychiatric admissions, including one here at [facility]. Labs reviewed, UDS +cocaine elevated LFTs, low Mg (repleted) CIWA scores have been 5. Visibly tremulous, denies anxiety, nausea/vomiting, no diaphoresis noted. Discussed AUD and options to address this, she stated, I just can't go home too soon . When asked if she was interested in referral to CSS from here once medically stable, she declined, stating, I need to be somewhere to help me with my mental health, I drink more because of that Past Psychiatric History: past psych hospitalizations Medical Evaluation Reviewed: Yes Review of Systems Constitutional: Reports as per HPI, Reports daytime sleepiness, Reports difficulty sleeping, Reports lethargy and Reports malaise Gastrointestinal: Denies nausea Psychiatric: Reports anxiety and Reports depression Diagnostics Vital Signs (24Hr): Vital Signs - 24 hr 09/15/24 13:30 09/15/24 14:02 09/15/24 16:00 Temperature 98.1 F 97.4 F Pulse Rate 89 106 H 85 Respiratory Rate 20 20 18 Blood Pressure 162/85 H 162/85 H 157/74 H Pulse Oximetry 91 L 96 Oxygen Delivery Method CPAP CPAP Room Air Oxygen Flow Rate 09/15/24 19:58 09/15/24 22:06 09/15/24 23:34 Temperature 96.2 F L 98.6 F Pulse Rate 87 89 Respiratory Rate 18 14 18 Blood Pressure 174/98 H 165/85 H Pulse Oximetry 96 98 Oxygen Delivery Method CPAP Nasal Cannula Oxygen Flow Rate 3 3 09/16/24 03:09 09/16/24 07:19 09/16/24 07:35 Temperature 97.2 F 98.9 F Pulse Rate 92 83 104 H Respiratory Rate 18 16 18 Blood Pressure 126/76 125/78 Pulse Oximetry 98 94 Oxygen Delivery Method Nasal Cannula CPAP Oxygen Flow Rate 3 3 09/16/24 11:28 Temperature 98 F Pulse Rate 84 Respiratory Rate 16 Blood Pressure 148/73 H Pulse Oximetry 92 Oxygen Delivery Method Room Air Oxygen Flow Rate BMI result Body Mass Index 35.1 Labs 09/14/24 18:33 09/16/24 06:00 Labs: Laboratory Results - last 48 hr 09/14/24 09/14/24 09/14/24 18:33 19:17 19:18 WBC 4.6 L RBC 4.49 Hgb 16.0 Hct 44.5 MCV 99.1 H MCH 35.6 H MCHC 36.0 H RDW 15.3 Plt Count 185 D MPV 9.4 Immature Gran % (Auto) 0.2 Neut % (Auto) 39.5 L Lymph % (Auto) 41.5 H Carver % (Auto) 16.0 H Eos % (Auto) 1.3 Baso % (Auto) 1.5 Lymph # (Auto) 1.9 Carver # (Auto) 0.7 Eos # (Auto) 0.1 Baso # (Auto) 0.1 Abs Immat Gran (auto) 0.01 Absolute Neuts (auto) 1.8 L Absolute Nucleated RBC 0.000 Nucleated RBC % (auto) 0.0 Hold Purple Top VBG pH VBG pCO2 VBG pO2 VBG HCO3 VBG O2 Saturation VBG Base Excess Sodium 142 Potassium 3.5 D Chloride 98 Carbon Dioxide 26 Anion Gap 22 H BUN 7 L Creatinine 0.71 Estim Creat Clear Calc 103.7 Estimated GFR > 60 Random Glucose 121 H Calcium 8.5 D Magnesium 1.6 Total Bilirubin 0.8 Direct Bilirubin 0.3 AST 226 H ALT 165 H Alkaline Phosphatase 154 H Total Protein 7.2 Albumin 4.1 Urine Color Dark Yellow Urine Appearance Clear Urine pH 6.0 Ur Specific [place] 1.015 Urine Protein Trace Urine Glucose (UA) Negative Urine Ketones Trace Urine Blood Negative Urine Nitrite Negative Ur Leukocyte Esterase Trace H Urine RBC 0-2 Urine WBC 0-5 Ur Squamous Epith Cells 3-5 Urine Bacteria None Seen Hyaline Casts 3-5 Urine Opiates Screen Not Detected Ur Buprenorphine Scrn Positive H Ur Oxycodone Screen Not Detected Urine Methadone Screen Not Detected Urine Fentanyl Screen Not Detected Ur Barbiturates Screen Not Detected Ur Phencyclidine Scrn Not Detected Ur Amphetamines Screen Not Detected U Benzodiazepines Scrn Not Detected Urine Cocaine Screen POSITIVE H U Marijuana (THC) Screen POSITIVE H Ethyl Alcohol 298 09/15/24 09/15/24 09/16/24 10:47 16:48 06:00 WBC RBC Hgb Hct MCV MCH MCHC RDW Plt Count MPV Immature Gran % (Auto) Neut % (Auto) Lymph % (Auto) Carver % (Auto) Eos % (Auto) Baso % (Auto) Lymph # (Auto) Carver # (Auto) Eos # (Auto) Baso # (Auto) Abs Immat Gran (auto) Absolute Neuts (auto) Absolute Nucleated RBC Nucleated RBC % (auto) Hold Purple Top SEE NOTE VBG pH 7.49 H VBG pCO2 47 VBG pO2 47 VBG HCO3 37 H VBG O2 Saturation 75.0 VBG Base Excess 12.1 Sodium 143 144 Potassium 3.7 3.4 Chloride 102 104 Carbon Dioxide 29 30 H Anion Gap 16 13 BUN 12 14 Creatinine 0.65 0.70 Estim Creat Clear Calc 113.2 104.6 Estimated GFR > 60 > 60 Random Glucose 99 138 H Calcium 8.8 8.2 L D Magnesium 1.3 L* Total Bilirubin 1.6 H Direct Bilirubin AST 176 H ALT 125 H Alkaline Phosphatase 133 H Total Protein 6.4 L Albumin 3.7 Urine Color Urine Appearance Urine pH Ur Specific [place] Urine Protein Urine Glucose (UA) Urine Ketones Urine Blood Urine Nitrite Ur Leukocyte Esterase Urine RBC Urine WBC Ur Squamous Epith Cells Urine Bacteria Hyaline Casts Urine Opiates Screen Ur Buprenorphine Scrn Ur Oxycodone Screen Urine Methadone Screen Urine Fentanyl Screen Ur Barbiturates Screen Ur Phencyclidine Scrn Ur Amphetamines Screen U Benzodiazepines Scrn Urine Cocaine Screen U Marijuana (THC) Screen Ethyl Alcohol Mental Status Exam Mental Status Exam Patient Appearance: Appropriate Level of Consciousness: Awake and Appropriate Patient Behavior: Appropriate Affect Description: Blunted Speech Pattern: Clear Hallucinations: None Thought Content: positive for Intact Judgement: Good Medications Medications Current Medications Acetaminophen (Acetaminophen 325 Mg Tablet) 650 mg PO Q6H PRN PRN Reason: Pain, Mild 1-3,fever,headache Albuterol Sulfate (Albuterol Sulfate 90 Mcg 8 Gm Inhaler) 2 puff INHALE RQ4H PRN PRN Reason: Shortness of Breath/Wheezing Buprenorphine/Naloxone (Buprenorphine/Naloxone 8/2 Mg Film) 1 film SUBLINGUAL DAILY@0900,1400,1900 [facility] Calcium Carbonate (Calcium Carbonate 750 Mg Tab.Chew) 750 mg PO Q4H PRN PRN Reason: Heartburn Clonidine HCl (Clonidine Hcl 0.1 Mg Tablet) 0.1 mg PO TID PRN; Protocol PRN Reason: ANXIETY, PANIC OR WITHDRAWALS Last Admin: 09/15/24 20:02 Dose: 0.1 mg Duloxetine HCl (Duloxetine Hcl 30 Mg Capsule.Dr) 30 mg PO BID [facility] Last Admin: 09/16/24 11:02 Dose: 30 mg Enoxaparin Sodium (Enoxaparin Sodium 40 Mg/0.4 Ml Syringe) 40 mg SUBCUT Q24H [facility] Last Admin: 09/15/24 13:32 Dose: 40 mg Famotidine (Famotidine 20 Mg Tablet) 20 mg PO BID [facility] Last Admin: 09/16/24 11:04 Dose: 20 mg Fluticasone/Umeclidinium/Vilanterol (Fluticasone/Umeclidinium/Vilanterol 200/62.5/25 Blst.W.Dev) 1 puff INHALE RDAILY [facility] Last Admin: 09/16/24 07:34 Dose: 1 puff Folic Acid (Folic Acid 1 Mg Tablet) 1 mg PO DAILY [facility] Last Admin: 09/16/24 11:03 Dose: 1 mg Gabapentin (Gabapentin 300 Mg Capsule) 300 mg PO TID [facility] Last Admin: 09/16/24 11:02 Dose: 300 mg Hydroxychloroquine Sulfate (Hydroxychloroquine Sulfate 200 Mg Tablet) 200 mg PO BID [facility] Last Admin: 09/16/24 11:03 Dose: 200 mg Hydroxyzine HCl (Hydroxyzine Hcl 25 Mg Tablet) 25 mg PO BID PRN PRN Reason: anxiety Sodium Chloride (Ns) 1,000 mls @ 120 mls/hr IVCONT .Q8H20M [facility] Last Admin: 09/16/24 04:01 Dose: 120 mls/hr Magnesium Hydroxide (Milk Of Magnesia 30 Ml Oral.Susp) 30 ml PO DAILY PRN PRN Reason: Constipation Magnesium Oxide (Magnesium Oxide 400 Mg Tablet) 400 mg PO BIDPC [facility] Melatonin (Melatonin 3 Mg Tablet) 6 mg PO BEDTIME PRN PRN Reason: Insomnia Multivitamins/Vitamin C (Multivitamin Tablet) 1 tab PO DAILY [facility] Last Admin: 09/16/24 11:02 Dose: 1 tab Nicotine Polacrilex (Nicotine Polacrilex 2 Mg Gum) 2 mg BUCCAL Q2H PRN PRN Reason: Nicotine Cravings Last Admin: 09/16/24 11:30 Dose: 2 mg Nicotine Polacrilex (Nicotine Polacrilex 2 Mg Gum) 4 mg BUCCAL Q2H PRN PRN Reason: Nicotine Cravings Last Admin: 09/15/24 17:43 Dose: 4 mg Ondansetron HCl (Ondansetron Hcl 4 Mg/2 Ml Vial) 4 mg IVPUSH Q8H PRN PRN Reason: Nausea and Vomiting Pharmacy Consult (Consult Rx Etoh Phenob Im/Po) 1 each MISCELLANE ONCE PRN; Protocol PRN Reason: Consult order Phenobarbital (Phenobarbital 15 Mg Tablet) 45 mg PO BID [facility]; Protocol Stop: 09/17/24 21:01 Last Admin: 09/16/24 11:02 Dose: 45 mg Phenobarbital (Phenobarbital 15 Mg Tablet) 15 mg PO BID [facility]; Protocol Stop: 09/19/24 21:01 Phenobarbital (Phenobarbital 15 Mg Tablet) 15 mg PO DAILY [facility]; Protocol Stop: 09/21/24 09:01 Risperidone (Risperidone 1 Mg Tablet) 1 mg PO DAILY [facility] Last Admin: 09/16/24 11:02 Dose: 1 mg Senna (Sennosides 8.6 Mg Tablet) 8.8 mg PO BEDTIME PRN PRN Reason: Constipation Sodium Chloride (0.9 % Sodium Chloride Flush 3 Ml Syringe) 3 ml IVFLUSH QSHIFT [facility] Last Admin: 09/16/24 11:03 Dose: 3 ml Sodium Chloride (0.9 % Sodium Chloride Flush 3 Ml Syringe) 3 ml IVFLUSH QSHIFT [facility] Last Admin: 09/16/24 07:04 Dose: 3 ml Thiamine HCl (Thiamine Hcl 100 Mg Tablet) 100 mg PO DAILY [facility] Last Admin: 09/16/24 11:02 Dose: 100 mg Allergies Allergies Allergy/AdvReac Type Severity Reaction Status Date / Time No Known Allergies Allergy Verified 09/14/24 16:56 Assessment & Plan Assessment & Plan (1) Alcohol use disorder: Status: Acute Code(s): F10.90 - Alcohol use, unspecified, uncomplicated Assessment and Plan: * withdrawal managed with phenobarbital taper * continue thiamine and folic acid * at this time declines INOCENCIA, referral/appt for AUD outpatient treatment and follow up * CARE team consult once medically cleared * please reconsult if necessary. Total time managing care of this patient today _40___ minutes. PMFSH Past Medical History Medical History Chronic constipation Lupus erythematosus tumidus ONI on CPAP Opioid use disorder Alcohol use disorder MDD (major depressive disorder), recurrent severe, without psychosis Social History Social History Household Members: Other Household Members Other:: Roommate Housing: House Do you presently have visiting nurse or other home services: No Unable to assess alcohol history related to: Unable to respond Alcohol intake: current Alcohol intake frequency: 3 or more drinks per day Alcohol type: hard liquor Patient Tobacco Use Status: Current everyday Tobacco user Tobacco use type: Cigarette Cigarette Packs Per Day: 2 Cigarettes Per Day: 40.0 e-Cigarette/Vaping Use: Currently Using Second Hand Smoke Exposure: Yes Substance Use Type: Marijuana and Caffiene service: No Sexual orientation: Straight/Heterosexual
[2024-09-16] MEDS: Enoxaparin Sodium 40 MG/0.4 ML SYRINGE SUBCUT (13:11)
[2024-09-16] MEDS: Magnesium Oxide 400 MG TABLET PO (15:40)
[2024-09-16] MEDS: cloNIDine HCL 0.1 MG TABLET PO (19:13)
[2024-09-16] MEDS: Sennosides 8.6 MG TABLET 8.8 MG PO (19:13)
[2024-09-16] MEDS: Melatonin 3 MG TABLET 6 MG PO (19:14)
[2024-09-16] MEDS: hydrOXYzine HCL 25 MG TABLET PO (19:14)
[2024-09-16] MEDS: Milk of Magnesia 30 ML ORAL.SUSP PO (19:16)
[2024-09-17] VITALS (8 sets, daily range): BP systolic 115–155; BP diastolic 65–88; PULSE 82–94; RESP 18; TEMP 36–36.9; O2SAT 89–94
[2024-09-17] MEDS: Nicotine Polacrilex 2 MG GUM 4 MG BUCCAL ×5 (00:39→21:37)
[2024-09-17] MEDS: 0.9 % Sodium Chloride 1,000 ML 120 ML IVCONT (04:13)
--- NOTE | 2024-09-17 08:04 | HO.PM.IMPN ---
Subjective Subjective Date of Service: 09/17/24 Interval History: alcohol withdrawals, ciwa 6 Review of Systems seems tramulous ,anxious denies any new c/o. Review of Systems: Yes all other systems are reviewed and are negative Physical Exam Vital Signs: Vital Signs: Last Vital Signs Temp 97.5 F 09/17/24 07:48 Pulse 88 09/17/24 07:48 Resp 18 09/17/24 07:48 BP 155/74 H 09/17/24 07:48 Pulse Ox 94 09/17/24 07:48 O2 Del Method Room Air 09/17/24 07:48 O2 Flow Rate 3 09/16/24 07:19 BMI result Body Mass Index 35.1 Appearance: Alert.? Oriented X3.?anxious and tramulous . cvs: rrr, [id number] . res: clear to auscultation ,no rhonchii or wheezing abd: no rebound or guarding ,nt, bs present. ext pulses present , no cyanosis . neuro: axo3 , nonfocal. Objective Data Active Medications Acetaminophen (Acetaminophen 325 Mg Tablet) 650 mg PO Q6H PRN PRN Reason: Pain, Mild 1-3,fever,headache Albuterol Sulfate (Albuterol Sulfate 90 Mcg 8 Gm Inhaler) 2 puff INHALE RQ4H PRN PRN Reason: Shortness of Breath/Wheezing Buprenorphine/Naloxone (Buprenorphine/Naloxone 8/2 Mg Film) 1 film SUBLINGUAL DAILY@0900,1400,1900 [facility] Last Admin: 09/16/24 19:15 Dose: 1 film Documented By: LULÚ Calcium Carbonate (Calcium Carbonate 750 Mg Tab.Chew) 750 mg PO Q4H PRN PRN Reason: Heartburn Clonidine HCl (Clonidine Hcl 0.1 Mg Tablet) 0.1 mg PO TID PRN; Protocol PRN Reason: ANXIETY, PANIC OR WITHDRAWALS Last Admin: 09/16/24 19:13 Dose: 0.1 mg Documented By: LULÚ Duloxetine HCl (Duloxetine Hcl 30 Mg Capsule.) 30 mg PO BID [facility] Last Admin: 09/16/24 19:13 Dose: 30 mg Documented By: LULÚ Enoxaparin Sodium (Enoxaparin Sodium 40 Mg/0.4 Ml Syringe) 40 mg SUBCUT Q24H [facility] Last Admin: 09/16/24 13:11 Dose: 40 mg Documented By: JESUS Famotidine (Famotidine 20 Mg Tablet) 20 mg PO BID [facility] Last Admin: 09/16/24 19:14 Dose: 20 mg Documented By: LULÚ Fluticasone/Umeclidinium/Vilanterol (Fluticasone/Umeclidinium/Vilanterol 200/62.5/25 Blst.W.Dev) 1 puff INHALE RDAILY [facility] Last Admin: 09/16/24 07:34 Dose: 1 puff Documented By: HÉCTOR Folic Acid (Folic Acid 1 Mg Tablet) 1 mg PO DAILY [facility] Last Admin: 09/16/24 11:03 Dose: 1 mg Documented By: JESUS Gabapentin (Gabapentin 300 Mg Capsule) 300 mg PO TID [facility] Last Admin: 09/16/24 19:13 Dose: 300 mg Documented By: LULÚ Hydroxychloroquine Sulfate (Hydroxychloroquine Sulfate 200 Mg Tablet) 200 mg PO BID [facility] Last Admin: 09/16/24 19:13 Dose: 200 mg Documented By: LULÚ Hydroxyzine HCl (Hydroxyzine Hcl 25 Mg Tablet) 25 mg PO BID PRN PRN Reason: anxiety Last Admin: 09/16/24 19:14 Dose: 25 mg Documented By: LULÚ Sodium Chloride (Ns) 1,000 mls @ 120 mls/hr IVCONT .Q8H20M [facility] Last Admin: 09/17/24 04:13 Dose: 120 mls/hr Documented By: LULÚ Magnesium Hydroxide (Milk Of Magnesia 30 Ml Oral.Susp) 30 ml PO DAILY PRN PRN Reason: Constipation Last Admin: 09/16/24 19:16 Dose: 30 ml Documented By: LULÚ Magnesium Oxide (Magnesium Oxide 400 Mg Tablet) 400 mg PO BIDPC [facility] Last Admin: 09/16/24 15:40 Dose: 400 mg Documented By: JESUS Melatonin (Melatonin 3 Mg Tablet) 6 mg PO BEDTIME PRN PRN Reason: Insomnia Last Admin: 09/16/24 19:14 Dose: 6 mg Documented By: LULÚ Multivitamins/Vitamin C (Multivitamin Tablet) 1 tab PO DAILY [facility] Last Admin: 09/16/24 11:02 Dose: 1 tab Documented By: JESUS Nicotine Polacrilex (Nicotine Polacrilex 2 Mg Gum) 2 mg BUCCAL Q2H PRN PRN Reason: Nicotine Cravings Last Admin: 09/16/24 22:03 Dose: 2 mg Documented By: LULÚ Nicotine Polacrilex (Nicotine Polacrilex 2 Mg Gum) 4 mg BUCCAL Q2H PRN PRN Reason: Nicotine Cravings Last Admin: 09/17/24 02:44 Dose: 4 mg Documented By: LULÚ Ondansetron HCl (Ondansetron Hcl 4 Mg/2 Ml Vial) 4 mg IVPUSH Q8H PRN PRN Reason: Nausea and Vomiting Pharmacy Consult (Consult Rx Etoh Phenob Im/Po) 1 each MISCELLANE ONCE PRN; Protocol PRN Reason: Consult order Phenobarbital (Phenobarbital 15 Mg Tablet) 45 mg PO BID [facility]; Protocol Stop: 09/17/24 21:01 Last Admin: 09/16/24 19:14 Dose: 45 mg Documented By: LULÚ Phenobarbital (Phenobarbital 15 Mg Tablet) 15 mg PO BID [facility]; Protocol Stop: 09/19/24 21:01 Phenobarbital (Phenobarbital 15 Mg Tablet) 15 mg PO DAILY [facility]; Protocol Stop: 09/21/24 09:01 Risperidone (Risperidone 1 Mg Tablet) 1 mg PO DAILY [facility] Last Admin: 09/16/24 11:02 Dose: 1 mg Documented By: JESUS Senna (Sennosides 8.6 Mg Tablet) 8.8 mg PO BEDTIME PRN PRN Reason: Constipation Last Admin: 09/16/24 19:13 Dose: 8.6 mg Documented By: LULÚ Sodium Chloride (0.9 % Sodium Chloride Flush 3 Ml Syringe) 3 ml IVFLUSH [facility] Last Admin: 09/17/24 01:08 Dose: Not Given Documented By: LULÚ Non-Admin Reason: IV Running Sodium Chloride (0.9 % Sodium Chloride Flush 3 Ml Syringe) 3 ml IVFLUSH [facility] Last Admin: 09/16/24 22:07 Dose: Not Given Documented By: LULÚ Non-Admin Reason: Duplicate Order Thiamine HCl (Thiamine Hcl 100 Mg Tablet) 100 mg PO DAILY [facility] Last Admin: 09/16/24 11:02 Dose: 100 mg Documented By: JESUS Labs 09/14/24 18:33 09/17/24 08:32 Assessment and Plan (1) Alcohol withdrawal: Status: Acute Plan 59-year-old female who presents after binge drinking since July, reports up to 20 nips a day as well as self-induced vomiting. She initially presented seeking help for detox from alcohol and wanted to alcohol withdrawal. She will be admitted to telemetry floor for further monitoring ETOH withdrawal/opioid use disorder Initially received some Ativan with no relief change to phenobarbital protocol Continue to monitor CIWA scale Start thiamine and folate and multivitamin, pepcid BID . Consult to addiction Medicine on Suboxone Elevated LFT's ALT/AST elevated- Follow labs LIkely related Low bicarb with anion gap-improved. Likely related to ETOH related. 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 Followed by family advocate outpatient [facility] MDD/ETOH abuse Continue Home meds Addiction consult Followed by [facility] psychiatry COPD/ONI Not in acute exacerbation Continue CPAP at night Continue home Trelegy and albuterol as needed Tobacco abuse Continue and RT with nicotine patch and lozenges FULL CODE DVT prophylaxis: Lovenox ongoing need: Alcohol withdrawal-still symptomatic need phenobarb protocol, renal function electrolyte monitoring Quality Stroke Does the patient have a stroke diagnosis?: No VTE Prior VTE?: No VTE Risk Level:: Medical - moderate - high VTE Device Contraindication: N/A - Device Ordered VTE Drug Contraindication: N/A - Med Ordered
[2024-09-17] MEDS: DULoxetine HCl 30 MG CAPSULE.DR PO ×2 (08:25→19:54)
[2024-09-17] MEDS: Famotidine 20 MG TABLET PO ×2 (08:25→19:38)
[2024-09-17] MEDS: Hydroxychloroquine Sulfate 200 MG TABLET PO ×2 (08:26→19:35)
[2024-09-17] MEDS: Multivitamin TABLET 1 TAB PO (08:26)
[2024-09-17] MEDS: Thiamine HCL 100 MG TABLET PO (08:26)
[2024-09-17] MEDS: Folic Acid 1 MG TABLET PO (08:26)
[2024-09-17] MEDS: risperiDONE 1 MG TABLET PO (08:26)
[2024-09-17] MEDS: 0.9 % Sodium Chloride Flush 3 ML SYRINGE IVFLUSH (08:26)
[2024-09-17] MEDS: Magnesium Oxide 400 MG TABLET PO ×2 (08:26→16:46)
[2024-09-17] MEDS: Gabapentin 300 MG CAPSULE PO ×3 (08:26→19:38)
[2024-09-17] MEDS: PHENobarbitaL 15 MG TABLET 45 MG PO ×2 (08:26→19:35)
[2024-09-17] MEDS: Fluticasone/Umeclidinium/Vilanterol 200/62.5/25 BLST.W.DEV 1 PUFF INHALE (08:27)
[2024-09-17] MEDS: Buprenorphine/Naloxone 8/2 mg FILM 1 FILM SUBLINGUAL ×3 (08:29→19:35)
[2024-09-17 09:03] LABS: Alanine Aminotransferase 101 U/L (0-31); Albumin Level 3.4 g/dL (3.5-5.0); Alkaline Phosphatase 110 U/L (39-117); Anion Gap 11 (12-20); Aspartate Amino Transferase 141 U/L (5-31); Blood Urea Nitrogen 5 mg/dL (9-16); Carbon Dioxide 29 mmol/L (22-29); Chloride 103 mmol/L (96-108); Creatinine Clr Calc Pharmacy 130.8; Estimated Glomerular Filt Rate > 60; Glucose Random 122 mg/dL (60-115); Magnesium 1.8 mg/dL (1.6-2.6); Potassium 3.5 mmol/L (3.3-5.1); Sodium 139 mmol/L (135-145); Total Protein 5.7 g/dL (6.5-8.0)
[2024-09-17] MEDS: Milk of Magnesia 30 ML ORAL.SUSP PO (10:34)
--- NOTE | 2024-09-17 13:02 | MHC.CM.PN ---
EMR REVIEWED AND PER MD ROUNDS, PT IS NOT MEDICALLY CLEARED FOR DC (CIWA 6, CONTINUES TO WITHDRAW) CM WILL CONTINUE TO FOLLOW FOR ANY CHANGE TO DC PLAN/NEEDS.
[2024-09-17] MEDS: Enoxaparin Sodium 40 MG/0.4 ML SYRINGE SUBCUT (13:17)
[2024-09-17] MEDS: Melatonin 3 MG TABLET 6 MG PO (19:36)
[2024-09-17] MEDS: cloNIDine HCL 0.1 MG TABLET PO (19:36)
[2024-09-17] MEDS: Sennosides 8.6 MG TABLET 8.8 MG PO (19:54)
[2024-09-17] MEDS: Acetaminophen 325 MG TABLET 650 MG PO (21:36)
[2024-09-18] VITALS (8 sets, daily range): BP systolic 132–166; BP diastolic 66–93; PULSE 82–98; RESP 13–20; TEMP 36.1–37.2; O2SAT 92–96
[2024-09-18] MEDS: Nicotine Polacrilex 2 MG GUM 4 MG BUCCAL ×6 (00:10→22:54)
[2024-09-18] MEDS: 0.9 % Sodium Chloride Flush 3 ML SYRINGE IVFLUSH ×4 (00:12→21:29)
[2024-09-18] MEDS: hydrOXYzine HCL 25 MG TABLET PO (01:42)
[2024-09-18] MEDS: Fluticasone/Umeclidinium/Vilanterol 200/62.5/25 BLST.W.DEV 1 PUFF INHALE (07:59)
[2024-09-18] MEDS: risperiDONE 1 MG TABLET PO (09:53)
[2024-09-18] MEDS: Nicotine Polacrilex 2 MG GUM BUCCAL (09:53)
[2024-09-18] MEDS: Buprenorphine/Naloxone 8/2 mg FILM 1 FILM SUBLINGUAL ×3 (09:53→21:29)
[2024-09-18] MEDS: Folic Acid 1 MG TABLET PO (09:53)
[2024-09-18] MEDS: PHENobarbitaL 15 MG TABLET PO ×2 (09:53→21:26)
[2024-09-18] MEDS: DULoxetine HCl 30 MG CAPSULE.DR PO ×2 (09:53→21:26)
[2024-09-18] MEDS: Multivitamin TABLET 1 TAB PO (09:53)
[2024-09-18] MEDS: Gabapentin 300 MG CAPSULE PO ×3 (09:53→21:27)
[2024-09-18] MEDS: Hydroxychloroquine Sulfate 200 MG TABLET PO ×2 (09:53→21:27)
[2024-09-18] MEDS: cloNIDine HCL 0.1 MG TABLET PO ×2 (09:54→21:27)
[2024-09-18] MEDS: Magnesium Oxide 400 MG TABLET PO ×2 (09:54→16:27)
[2024-09-18] MEDS: Thiamine HCL 100 MG TABLET PO (09:54)
[2024-09-18] MEDS: Famotidine 20 MG TABLET PO ×2 (09:54→21:27)
[2024-09-18] MEDS: Milk of Magnesia 30 ML ORAL.SUSP PO (10:01)
[2024-09-18] MEDS: Artificial Tears 15 ML DROPS 1 DROP EYE-BOTH ×3 (13:03→21:27)
[2024-09-18] MEDS: Enoxaparin Sodium 40 MG/0.4 ML SYRINGE SUBCUT (13:03)
--- NOTE | 2024-09-18 16:31 | P.PNIM_ITS ---
Subjective Subjective Date of Service: 09/18/24 Interval History: alcohol withdrawals Review of Systems seems tramulous and anxious denies other c/o Physical Exam 2 Vital Signs: Vital Signs: Last Vital Signs Temp 97.4 F 09/18/24 11:53 Pulse 84 09/18/24 11:53 Resp 16 09/18/24 11:53 BP 149/66 H 09/18/24 11:53 Pulse Ox 94 09/18/24 11:53 O2 Del Method Room Air 09/18/24 11:53 O2 Flow Rate 3 09/16/24 07:19 BMI result Body Mass Index 35.1 Appearance: Alert.? Oriented X3.?anxious and tramulous . cvs: rrr, [id number] . res: clear to auscultation ,no rhonchii or wheezing abd: no rebound or guarding ,nt, bs present. ext pulses present , no cyanosis . neuro: axo3 , nonfocal. Objective Data Active Medications Acetaminophen (Acetaminophen 325 Mg Tablet) 650 mg PO Q6H PRN PRN Reason: Pain, Mild 1-3,fever,headache Last Admin: 09/17/24 21:36 Dose: 650 mg Documented By: ISATU Albuterol Sulfate (Albuterol Sulfate 90 Mcg 8 Gm Inhaler) 2 puff INHALE RQ4H PRN PRN Reason: Shortness of Breath/Wheezing Artificial Tears (Artificial Tears 15 Ml Drops) 1 drop EYE-BOTH QID [facility] Last Admin: 09/18/24 16:27 Dose: 1 drop Documented By: GEOFFREY Buprenorphine/Naloxone (Buprenorphine/Naloxone 8/2 Mg Film) 1 film SUBLINGUAL DAILY@0900,1400,1900 [facility] Last Admin: 09/18/24 14:32 Dose: 1 film Documented By: GEOFFREY Calcium Carbonate (Calcium Carbonate 750 Mg Tab.Chew) 750 mg PO Q4H PRN PRN Reason: Heartburn Clonidine HCl (Clonidine Hcl 0.1 Mg Tablet) 0.1 mg PO TID PRN; Protocol PRN Reason: ANXIETY, PANIC OR WITHDRAWALS Last Admin: 09/18/24 09:54 Dose: 0.1 mg Documented By: GEOFFREY Duloxetine HCl (Duloxetine Hcl 30 Mg Capsule.Dr) 30 mg PO BID [facility] Last Admin: 09/18/24 09:53 Dose: 30 mg Documented By: GEOFFREY Enoxaparin Sodium (Enoxaparin Sodium 40 Mg/0.4 Ml Syringe) 40 mg SUBCUT Q24H [facility] Last Admin: 09/18/24 13:03 Dose: 40 mg Documented By: GEOFFREY Famotidine (Famotidine 20 Mg Tablet) 20 mg PO BID [facility] Last Admin: 09/18/24 09:54 Dose: 20 mg Documented By: GEOFFREY Fluticasone/Umeclidinium/Vilanterol (Fluticasone/Umeclidinium/Vilanterol 200/62.5 Blst.W.Dev) 1 puff INHALE RDAILY [facility] Last Admin: 09/18/24 07:59 Dose: 1 puff Documented By: HÉCTOR Folic Acid (Folic Acid 1 Mg Tablet) 1 mg PO DAILY [facility] Last Admin: 09/18/24 09:53 Dose: 1 mg Documented By: GEOFFREY Gabapentin (Gabapentin 300 Mg Capsule) 300 mg PO TID [facility] Last Admin: 09/18/24 14:32 Dose: 300 mg Documented By: GEOFFREY Hydroxychloroquine Sulfate (Hydroxychloroquine Sulfate 200 Mg Tablet) 200 mg PO BID [facility] Last Admin: 09/18/24 09:53 Dose: 200 mg Documented By: GEOFFREY Hydroxyzine HCl (Hydroxyzine Hcl 25 Mg Tablet) 25 mg PO BID PRN PRN Reason: anxiety Last Admin: 09/18/24 01:42 Dose: 25 mg Documented By: ISATU Ketotifen Fumarate (Ketotifen Fumarate 0.025% Oph 5 Ml Drpbtl) 1 drop EYE-BOTH BID [facility] Magnesium Hydroxide (Milk Of Magnesia 30 Ml Oral.Susp) 30 ml PO DAILY PRN PRN Reason: Constipation Last Admin: 09/18/24 10:01 Dose: 30 ml Documented By: GEOFFREY Magnesium Oxide (Magnesium Oxide 400 Mg Tablet) 400 mg PO BIDPC [facility] Last Admin: 09/18/24 16:27 Dose: 400 mg Documented By: GEOFFREY Melatonin (Melatonin 3 Mg Tablet) 6 mg PO BEDTIME PRN PRN Reason: Insomnia Last Admin: 09/17/24 19:36 Dose: 6 mg Documented By: ISATU Multivitamins/Vitamin C (Multivitamin Tablet) 1 tab PO DAILY [facility] Last Admin: 09/18/24 09:53 Dose: 1 tab Documented By: GEOFFREY Nicotine Polacrilex (Nicotine Polacrilex 2 Mg Gum) 2 mg BUCCAL Q2H PRN PRN Reason: Nicotine Cravings Last Admin: 09/18/24 09:53 Dose: 2 mg Documented By: GEOFFREY Nicotine Polacrilex (Nicotine Polacrilex 2 Mg Gum) 4 mg BUCCAL Q2H PRN PRN Reason: Nicotine Cravings Last Admin: 09/18/24 16:29 Dose: 4 mg Documented By: GEOFFREY Ondansetron HCl (Ondansetron Hcl 4 Mg/2 Ml Vial) 4 mg IVPUSH Q8H PRN PRN Reason: Nausea and Vomiting Pharmacy Consult (Consult Rx Etoh Phenob Im/Po) 1 each MISCELLANE ONCE PRN; Protocol PRN Reason: Consult order Phenobarbital (Phenobarbital 15 Mg Tablet) 15 mg PO BID [facility]; Protocol Stop: 09/19/24 21:01 Last Admin: 09/18/24 09:53 Dose: 15 mg Documented By: GEOFFREY Phenobarbital (Phenobarbital 15 Mg Tablet) 15 mg PO DAILY [facility]; Protocol Stop: 09/21/24 09:01 Risperidone (Risperidone 1 Mg Tablet) 1 mg PO DAILY [facility] Last Admin: 09/18/24 09:53 Dose: 1 mg Documented By: GEOFFREY Senna (Sennosides 8.6 Mg Tablet) 8.8 mg PO BEDTIME PRN PRN Reason: Constipation Last Admin: 09/17/24 19:54 Dose: 8.8 mg Documented By: ISATU Sodium Chloride (0.9 % Sodium Chloride Flush 3 Ml Syringe) 3 ml IVFLUSH [facility] Last Admin: 09/18/24 14:32 Dose: 3 ml Documented By: GEOFFREY Sodium Chloride (0.9 % Sodium Chloride Flush 3 Ml Syringe) 3 ml IVFLUSH [facility] Last Admin: 09/18/24 14:32 Dose: Not Given Documented By: GEOFFREY Non-Admin Reason: Duplicate Order Thiamine HCl (Thiamine Hcl 100 Mg Tablet) 100 mg PO DAILY [facility] Last Admin: 09/18/24 09:54 Dose: 100 mg Documented By: GEOFFREY Tizanidine HCl (Tizanidine Hcl 4 Mg Tablet) 2 mg PO DAILY PRN PRN Reason: Muscle Spasms Labs 09/14/24 18:33 09/17/24 08:32 Assessment and Plan (1) Alcohol withdrawal: Status: Acute Plan 59-year-old female who presents after binge drinking since July, reports up to 20 nips a day as well as self-induced vomiting. She initially presented seeking help for detox from alcohol and wanted to alcohol withdrawal. She will be admitted to telemetry floor for further monitoring ETOH withdrawal/opioid use disorder Initially received some Ativan with no relief change to phenobarbital protocol Continue to monitor CIWA scale Start thiamine and folate and multivitamin, pepcid BID . Consult to addiction Medicine on Suboxone Elevated LFT's ALT/AST elevated- Follow labs LIkely related Low bicarb with anion gap-improved. Likely related to ETOH related. 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 [facility] MDD/ETOH abuse Continue Home meds Addiction consult Followed by [facility] psychiatry COPD/ONI Not in acute exacerbation Continue CPAP at night Continue home Trelegy and albuterol as needed Tobacco abuse Continue and RT with nicotine patch and lozenges FULL CODE DVT prophylaxis: Lovenox ongoing need: Alcohol withdrawal-still symptomatic need phenobarb protocol, renal function electrolyte monitoring Quality Stroke Does the patient have a stroke diagnosis?: No VTE Prior VTE?: No VTE Risk Level:: Medical - moderate - high VTE Device Contraindication: N/A - Device Ordered VTE Drug Contraindication: N/A - Med Ordered
[2024-09-18] MEDS: Ketotifen Fumarate 0.025% Oph 5 ML DRPBTL 1 DROP EYE-BOTH (21:26)
[2024-09-18] MEDS: Melatonin 3 MG TABLET 6 MG PO (21:26)
[2024-09-19] VITALS (7 sets, daily range): BP systolic 122–159; BP diastolic 60–89; PULSE 70–85; RESP 16–18; TEMP 35.9–37.2; O2SAT 92–95
[2024-09-19] MEDS: Sennosides 8.6 MG TABLET 8.8 MG PO (04:04)
[2024-09-19] MEDS: Nicotine Polacrilex 2 MG GUM 4 MG BUCCAL ×5 (04:04→18:06)
--- NOTE | 2024-09-19 07:50 | HO.PM.IMPN ---
Subjective Subjective Date of Service: 09/19/24 Interval History: alcohol withdrawals Review of Systems seems tramulous and anxious denies other c/o Review of Systems: Yes all other systems are reviewed and are negative Physical Exam Vital Signs: Vital Signs: Last Vital Signs Temp 97.6 F 09/19/24 06:53 Pulse 85 09/19/24 06:53 Resp 18 09/19/24 06:53 BP 145/89 H 09/19/24 06:53 Pulse Ox 95 09/19/24 06:53 O2 Del Method Room Air 09/19/24 06:53 O2 Flow Rate 3 09/16/24 07:19 BMI result Body Mass Index 35.1 Appearance: Alert.? Oriented X3.?anxious and tramulous . cvs: rrr, [id number] . res: clear to auscultation ,no rhonchii or wheezing abd: no rebound or guarding ,nt, bs present. ext pulses present , no cyanosis . neuro: axo3 , nonfocal. Objective Data Active Medications Acetaminophen (Acetaminophen 325 Mg Tablet) 650 mg PO Q6H PRN PRN Reason: Pain, Mild 1-3,fever,headache Last Admin: 09/17/24 21:36 Dose: 650 mg Documented By: ISATU Albuterol Sulfate (Albuterol Sulfate 90 Mcg 8 Gm Inhaler) 2 puff INHALE RQ4H PRN PRN Reason: Shortness of Breath/Wheezing Artificial Tears (Artificial Tears 15 Ml Drops) 1 drop EYE-BOTH QID [facility] Last Admin: 09/18/24 21:27 Dose: 1 drop Documented By: ISATU Buprenorphine/Naloxone (Buprenorphine/Naloxone 8/2 Mg Film) 1 film SUBLINGUAL DAILY@0900,1400,1900 [facility] Last Admin: 09/18/24 21:29 Dose: 1 film Documented By: ISATU Calcium Carbonate (Calcium Carbonate 750 Mg Tab.Chew) 750 mg PO Q4H PRN PRN Reason: Heartburn Clonidine HCl (Clonidine Hcl 0.1 Mg Tablet) 0.1 mg PO TID PRN; Protocol PRN Reason: ANXIETY, PANIC OR WITHDRAWALS Last Admin: 09/18/24 21:27 Dose: 0.1 mg Documented By: ISATU Duloxetine HCl (Duloxetine Hcl 30 Mg Capsule.Dr) 30 mg PO BID [facility] Last Admin: 09/18/24 21:26 Dose: 30 mg Documented By: ISATU Enoxaparin Sodium (Enoxaparin Sodium 40 Mg/0.4 Ml Syringe) 40 mg SUBCUT Q24H [facility] Last Admin: 09/18/24 13:03 Dose: 40 mg Documented By: GEOFFREY Famotidine (Famotidine 20 Mg Tablet) 20 mg PO BID [facility] Last Admin: 09/18/24 21:27 Dose: 20 mg Documented By: ISATU Fluticasone/Umeclidinium/Vilanterol (Fluticasone/Umeclidinium/Vilanterol 200/62.5 Blst.W.Dev) 1 puff INHALE RDAILY [facility] Last Admin: 09/18/24 07:59 Dose: 1 puff Documented By: HÉCTOR Folic Acid (Folic Acid 1 Mg Tablet) 1 mg PO DAILY [facility] Last Admin: 09/18/24 09:53 Dose: 1 mg Documented By: GEOFFREY Gabapentin (Gabapentin 300 Mg Capsule) 300 mg PO TID [facility] Last Admin: 09/18/24 21:27 Dose: 300 mg Documented By: ISATU Hydroxychloroquine Sulfate (Hydroxychloroquine Sulfate 200 Mg Tablet) 200 mg PO BID [facility] Last Admin: 09/18/24 21:27 Dose: 200 mg Documented By: ISATU Hydroxyzine HCl (Hydroxyzine Hcl 25 Mg Tablet) 25 mg PO BID PRN PRN Reason: anxiety Last Admin: 09/18/24 01:42 Dose: 25 mg Documented By: ISATU Ketotifen Fumarate (Ketotifen Fumarate 0.025% Oph 5 Ml Drpbtl) 1 drop EYE-BOTH BID [facility] Last Admin: 09/18/24 21:26 Dose: 1 drop Documented By: ISATU Magnesium Hydroxide (Milk Of Magnesia 30 Ml Oral.Susp) 30 ml PO DAILY PRN PRN Reason: Constipation Last Admin: 09/18/24 10:01 Dose: 30 ml Documented By: GEOFFREY Magnesium Oxide (Magnesium Oxide 400 Mg Tablet) 400 mg PO BIDPC [facility] Last Admin: 09/18/24 16:27 Dose: 400 mg Documented By: GEOFFREY Melatonin (Melatonin 3 Mg Tablet) 6 mg PO BEDTIME PRN PRN Reason: Insomnia Last Admin: 09/18/24 21:26 Dose: 6 mg Documented By: ISATU Multivitamins/Vitamin C (Multivitamin Tablet) 1 tab PO DAILY [facility] Last Admin: 09/18/24 09:53 Dose: 1 tab Documented By: GEOFFREY Nicotine Polacrilex (Nicotine Polacrilex 2 Mg Gum) 2 mg BUCCAL Q2H PRN PRN Reason: Nicotine Cravings Last Admin: 09/18/24 09:53 Dose: 2 mg Documented By: GEOFFREY Nicotine Polacrilex (Nicotine Polacrilex 2 Mg Gum) 4 mg BUCCAL Q2H PRN PRN Reason: Nicotine Cravings Last Admin: 09/19/24 04:04 Dose: 4 mg Documented By: ISATU Ondansetron HCl (Ondansetron Hcl 4 Mg/2 Ml Vial) 4 mg IVPUSH Q8H PRN PRN Reason: Nausea and Vomiting Pharmacy Consult (Consult Rx Etoh Phenob Im/Po) 1 each MISCELLANE ONCE PRN; Protocol PRN Reason: Consult order Phenobarbital (Phenobarbital 15 Mg Tablet) 15 mg PO BID [facility]; Protocol Stop: 09/19/24 21:01 Last Admin: 09/18/24 21:26 Dose: 15 mg Documented By: ISATU Phenobarbital (Phenobarbital 15 Mg Tablet) 15 mg PO DAILY [facility]; Protocol Stop: 09/21/24 09:01 Risperidone (Risperidone 1 Mg Tablet) 1 mg PO DAILY [facility] Last Admin: 09/18/24 09:53 Dose: 1 mg Documented By: GEOFFREY Senna (Sennosides 8.6 Mg Tablet) 8.8 mg PO BEDTIME PRN PRN Reason: Constipation Last Admin: 09/19/24 04:04 Dose: 8.8 mg Documented By: ISATU Sodium Chloride (0.9 % Sodium Chloride Flush 3 Ml Syringe) 3 ml IVFLUSH [facility] Last Admin: 09/18/24 21:29 Dose: 3 ml Documented By: ISATU Sodium Chloride (0.9 % Sodium Chloride Flush 3 Ml Syringe) 3 ml IVFLUSH [facility] Last Admin: 09/19/24 00:44 Dose: Not Given Documented By: ISATU Non-Admin Reason: Previously Administered Thiamine HCl (Thiamine Hcl 100 Mg Tablet) 100 mg PO DAILY [facility] Last Admin: 05/17/25 09:54 Dose: 100 mg Documented By: GEOFFREY Tizanidine HCl (Tizanidine Hcl 4 Mg Tablet) 2 mg PO DAILY PRN PRN Reason: Muscle Spasms Labs 09/14/24 18:33 09/17/24 08:32 Assessment and Plan (1) Alcohol withdrawal: Status: Acute Plan 59-year-old female who presents after binge drinking since July, reports up to 20 nips a day as well as self-induced vomiting. She initially presented seeking help for detox from alcohol and wanted to alcohol withdrawal. She will be admitted to telemetry floor for further monitoring ETOH withdrawal/opioid use disorder Initially received some Ativan with no relief change to phenobarbital protocol Continue to monitor CIWA scale added extra dose of phenobarbital,thiamine and folate and multivitamin, pepcid BID . addiction Medicine saw patient info given. on Suboxone Elevated LFT's ALT/AST elevated- improving LIkely related alcohol use. Low bicarb with anion gap-improved. Likely related to ETOH related . Acute hypomagnesemia: Repleted and resolved. received iv magnesium,now on po magnesium. 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 [facility] MDD/ETOH abuse Continue Home meds Followed by [facility] psychiatry COPD/ONI Not in acute exacerbation Continue CPAP at night Continue home Trelegy and albuterol as needed Tobacco abuse Continue and RT with nicotine patch and lozenges obesity -encouraged to lose weight FULL CODE DVT prophylaxis: Lovenox ongoing need: Alcohol withdrawal-still symptomatic need phenobarb protocol, renal function electrolyte monitoring Quality Stroke Does the patient have a stroke diagnosis?: No VTE Prior VTE?: No VTE Risk Level:: Medical - moderate - high VTE Device Contraindication: N/A - Device Ordered VTE Drug Contraindication: N/A - Med Ordered
[2024-09-19] MEDS: Hydroxychloroquine Sulfate 200 MG TABLET PO ×2 (08:11→19:56)
[2024-09-19] MEDS: Famotidine 20 MG TABLET PO ×2 (08:11→19:56)
[2024-09-19] MEDS: risperiDONE 1 MG TABLET PO (08:11)
[2024-09-19] MEDS: Gabapentin 300 MG CAPSULE PO ×3 (08:11→19:56)
[2024-09-19] MEDS: Multivitamin TABLET 1 TAB PO (08:12)
[2024-09-19] MEDS: Folic Acid 1 MG TABLET PO (08:12)
[2024-09-19] MEDS: Magnesium Oxide 400 MG TABLET PO ×2 (08:12→17:58)
[2024-09-19] MEDS: PHENobarbitaL 15 MG TABLET PO ×2 (08:12→19:56)
[2024-09-19] MEDS: Ketotifen Fumarate 0.025% Oph 5 ML DRPBTL 1 DROP EYE-BOTH (08:12)
[2024-09-19] MEDS: Thiamine HCL 100 MG TABLET PO (08:12)
[2024-09-19] MEDS: DULoxetine HCl 30 MG CAPSULE.DR PO ×2 (08:12→19:56)
[2024-09-19] MEDS: Artificial Tears 15 ML DROPS 1 DROP EYE-BOTH ×3 (08:15→17:58)
[2024-09-19] MEDS: 0.9 % Sodium Chloride Flush 3 ML SYRINGE IVFLUSH ×3 (08:16→20:01)
[2024-09-19] MEDS: Buprenorphine/Naloxone 8/2 mg FILM 1 FILM SUBLINGUAL ×2 (10:34→19:55)
--- NOTE | 2024-09-19 10:35 | PC.NURSE ---
patient refused suboxone at 9 am , stated that she will take after breakfast and than she put her cpap mask on and stated that she will take after a nap. pt took her am suboxone now
[2024-09-19] MEDS: Milk of Magnesia 30 ML ORAL.SUSP PO (11:10)
[2024-09-19 14:06] LABS: Estimated Average Glucose 114 mg/dL; Hemoglobin A1C 120.3082 umol/L; Hemoglobin A1c % 5.6 % (<6.0)
[2024-09-19] MEDS: Enoxaparin Sodium 40 MG/0.4 ML SYRINGE SUBCUT (14:11)
[2024-09-19] MEDS: PHENobarbitaL 30 MG TABLET 60 MG PO (14:11)
--- NOTE | 2024-09-19 16:27 | PC.NURSE ---
pt had her own Suboxone in her room at the time RN entered her room at 14:45, pt denied taking her own suboxone , medication sent to pharmacy for storage . DR To was notified , evening dose was held , Addiction medicine Kinjal Watts was notified
--- NOTE | 2024-09-19 18:22 | PC.NURSE ---
alert and oriented ,ambulating with steady gait, refusing bed alarm, tolerated po intake, medicated with nicotine gum PRN ,
[2024-09-19] MEDS: Nicotine Polacrilex 2 MG GUM BUCCAL (19:55)
[2024-09-19 20:31] LABS: Glucose, Whole Blood 124 mg/dL (60-115)
[2024-09-20 00:21] VITALS: RESP 9
[2024-09-20 03:31] VITALS: BP 123/82; PULSE 80; RESP 18; TEMP 36.1; O2SAT 97
[2024-09-20] MEDS: Nicotine Polacrilex 2 MG GUM 4 MG BUCCAL ×2 (05:34→10:54)
[2024-09-20 07:09] VITALS: BP 145/85; PULSE 73; RESP 18; TEMP 36.3; O2SAT 97
[2024-09-20 07:22] LABS: Glucose, Whole Blood 105 mg/dL (60-115)
[2024-09-20] MEDS: Fluticasone/Umeclidinium/Vilanterol 200/62.5/25 BLST.W.DEV 1 PUFF INHALE (07:42)
[2024-09-20 07:43] VITALS: PULSE 73; RESP 18; O2SAT 95
[2024-09-20] MEDS: Thiamine HCL 100 MG TABLET PO (08:45)
[2024-09-20] MEDS: Famotidine 20 MG TABLET PO (08:45)
[2024-09-20] MEDS: PHENobarbitaL 15 MG TABLET PO (08:45)
[2024-09-20] MEDS: risperiDONE 1 MG TABLET PO (08:45)
[2024-09-20] MEDS: Magnesium Oxide 400 MG TABLET PO (08:45)
[2024-09-20] MEDS: Multivitamin TABLET 1 TAB PO (08:45)
[2024-09-20] MEDS: DULoxetine HCl 30 MG CAPSULE.DR PO (08:46)
[2024-09-20] MEDS: Folic Acid 1 MG TABLET PO (08:46)
[2024-09-20] MEDS: Hydroxychloroquine Sulfate 200 MG TABLET PO (08:46)
[2024-09-20] MEDS: Gabapentin 300 MG CAPSULE PO (08:46)
[2024-09-20] MEDS: Ketotifen Fumarate 0.025% Oph 5 ML DRPBTL 1 DROP EYE-BOTH (08:47)
[2024-09-20] MEDS: 0.9 % Sodium Chloride Flush 3 ML SYRINGE IVFLUSH (08:48)
--- NOTE | 2024-09-20 08:56 | PM.DS ---
DS: Providers Provider Date of Service: 09/20/24 Date of admission: 09/15/24 10:26 Date of discharge: 09/20/24 Primary care physician: Cmopa Diane NP Consults: 09/14/24 18:22 ED CARE Team Crisis Consult Stat Comment: Reason for consultation: detox ED Recovery Team Consult Stat Comment: Reason for consultation: detox, ETOH 09/15/24 10:28 Addiction Medicine Provider Routine Consulting Provider: Addiction Covering Reason for consultation: alcohol/coacine use Has provider been notified: No Attending physician on discharge: Stanton To Discharging clinician: Stanton To DS: Diagnosis Discharge Diagnosis (1) Alcohol withdrawal: Status: Acute DS: Summary Hospital Course Hospital Course: HPI:59-year-old female with a PMH significant for Lupus erythematosus tumidus, ONI on CPAP, opioid use disorder, alcohol use disorder, major depression and COPD presented to ED for detox from alcohol. she reports she has been drinking 20 nips of whiskey per day and made herself sick with recurrent vomiting. On exam no reported nausea or vomiting. On admit to the ER she had tachycardia, was visibly intoxicated. She is using a CPAP at present time, denies any SOB. She has a history of COPD for which she takes Trelegy and Ventolin as needed. Patient reports that she is taking Suboxone 3 films daily in the morning. She has not received this. EKG with normal sinus rhythm, no ST segment elevations or depressions, normal QTc. She has macrocytosis with a normal H and H. blood gases reveal pH of 7.49 NaHCO3 of 37, with a anion gap of 22. AST/ALT to 266/165, alk-phos 154. Urine with trace leukocyte esterase. Urine tox screen positive for buprenorphine, cocaine and marijuana. Viral panel negative. Previous admission in the fall for alcohol use disorder and she was able to stay sober briefly but relapsed, she has been depressed since the of her son 2 years ago. In the ED she received 6 mg of lorazepam with continued evidence of withdrawal including significant tremors, she was started on phenobarbital protocol. Monitored on tele, received IV fluids. Patient will be admitted for ETOH withdrawal, she wishes to detox from alcohol. hospital course: 59-year-old female who presents after binge drinking since July, reports up to 20 nips a day as well as self-induced vomiting. She initially presented seeking help for detox from alcohol and wanted to alcohol withdrawal. She will be admitted to telemetry floor for further monitoring ETOH withdrawal/opioid use disorder:Initially received some Ativan with no relief change to phenobarbital protocol Started on CIWA, and phenobarb protocol. Seems to be improved significantly, seen by addiction Team and information given. Elevated LFT's ALT/AST elevated- improving LIkely related alcohol use. Patient was advised to abstain from alcohol, monitor LFT outpatient, further workup outpatient. Low bicarb with anion gap-improved,Likely related to ETOH related . Acute hypomagnesemia: Repleted and improved, given magnesium limited supply to take home Boderline DM: Hemoglobin A1c is 5.8, further management outpatient. Morbid obesity:Advised lose weight, cutdown calories, follow-up outpatient Plan: Patient was strongly advised to abstain from alcohol. Monitor LFT outpatient Magnesium 400 mg b.i.d. 7 day supply given, monitor electrolytes outpatient. Alcohol withdrawal improved. Above management discussed with the patient detail length she understand and in agreement with the above plan, time spent 40 minute, all question answered, staff was present during conversation. Time Attestation Total time managing care of this patient today: 40 mintues. Discharge Coordination Time (in mins): 40 min Quality: Safe Use of Opioids Does Pt have an Active Cancer Diagnosis on the Problem List?: No Quality: Stroke Does the patient have a stroke diagnosis?: No Physical Exam Vital Signs: Vital Signs: Last Vital Signs Temp 97.4 F 09/20/24 07:09 Pulse 73 09/20/24 07:43 Resp 18 09/20/24 07:43 BP 145/85 H 09/20/24 07:09 Pulse Ox 97 09/20/24 07:09 O2 Del Method CPAP 09/20/24 07:09 O2 Flow Rate 3 09/16/24 07:19 BMI result Body Mass Index 35.1 Appearance: Alert.? Oriented X3.?anxious and tramulous . cvs: rrr, [id number] . res: clear to auscultation ,no rhonchii or wheezing abd: no rebound or guarding ,nt, bs present. ext pulses present , no cyanosis . neuro: axo3 , nonfocal. DS: Data Data Completed and Pending Labs on day of discharge: Laboratory Results - last 24 hr 09/19/24 09/19/24 09/20/24 13:49 20:24 07:19 POC Glucose 124 H 105 Estimat Average Glucose 114 Hemoglobin A1c % 5.6 Imaging Chest x-ray: My impression: CT/CT angio chest PE protocol IMPRESSION: 1. No CT angiographic evidence of acute pulmonary embolism. 2. No pulmonary nodule, mass, or airspace consolidation. 3. Hepatic steatosis. Discharge Plan Discharge Anticipated Discharge Date/Time: 09/20/24 08:52 Patient Disposition: Home, Self-Care Discharge Diagnosis: ETOH withdrawal/opioid use disorder, elevated Lft's, acute hypomagnesemia Referrals: Compa Diane, [employer] [Primary Care Provider] - 1 Week Discharge Medications: New magnesium oxide 400 mg (241.3 mg magnesium) Tablet 400 mg PO BIDPC Qty: 14 0RF Continued buprenorphine-naloxone 8-2 mg film 3 film sublingual DAILY sennosides [Senna Lax] 8.6 mg Tablet 8.8 mg PO BEDTIME PRN (Reason: Constipation) 30 Days Qty: 30 0RF tizanidine 2 mg tablet 2 mg PO DAILY PRN (Reason: Muscle Spasms) 30 Days Qty: 30 0RF gabapentin 300 mg capsule 300 mg PO TID 30 Days Qty: 90 0RF hydroxyzine HCl 25 mg tablet 25 mg PO BID PRN (Reason: anxiety) 30 Days Qty: 60 0RF hydroxychloroquine 200 mg tablet 200 mg PO BID 30 Days Qty: 60 0RF albuterol sulfate [Ventolin HFA] 90 mcg/actuation HFA aerosol inhaler 2 puff INHALATION Q4-6H PRN (Reason: wheezing) 30 Days Qty: 6.7 0RF risperidone 1 mg tablet 1 mg PO DAILY 30 Days Qty: 30 0RF duloxetine 30 mg capsule,delayed release(DR/EC) 30 mg PO BID 30 Days Qty: 60 0RF Trelegy Ellipta 200-62.5-25 mcg blister with device 1 ea inhalation DAILY 30 Days Qty: 28 0RF clonidine HCl 0.1 mg tablet 0.1 mg PO TID PRN (Reason: ANXIETY, PANIC OR WITHDRAWALS) nicotine (polacrilex) 4 mg gum 4 mg buccal Q2H PRN (Reason: Nicotine Cravings) carboxymethylcellulose sodium 0.5 % Drops 1 drp OPHTHALMIC (EYE) QID Patient Comments: Per patient pharmacy (as of 09/17/24) they did not have this medication in stock and are still waiting for it to come in their med order. olopatadine 0.2 % Drops 1 drp OPHTHALMIC (EYE) BID Rx Instructions: Per patient pharmacy (as of 09/17/24) they did not have this medication in stock and are still waiting for it to come in their med order. Discharge Orders: Discharge Order (Routine); Ordered 09/20/24 Ordered By: Stanton To Diet: Advance to usual diet Activity on Discharge: As tolerated Stand Alone Forms: Patient Portal Discharge page Print Language: Occitan Other Ambulatory Orders: Comprehensive Met. Panel (Routine) Timeframe: 1 Week Facility: [facility] - Location: Laboratory Ordered By: Stanton To Magnesium (Routine) Timeframe: 1 Week Facility: [facility] - Location: Laboratory Ordered By: Stanton To Care Plan Goals: admitted for alcohol withdrawal. Health Concerns: Patient was strongly advised to abstain from alcohol. Monitor LFT outpatient Magnesium 400 mg b.i.d. 7 day supply given, monitor electrolytes outpatient. Alcohol withdrawal improved. Plan of Treatment: As above. Assessment: As above. Discharge Date/Time: 09/20/24 12:05
--- NOTE | 2024-09-20 09:39 | MHC.CM.PN ---
IMM 09/20/24 DELIVERED TO BEDSIDE, ANTIC PT WILL BE MEDICALLY CLEARED FOR DC HOME SELF CARE, CM TO SET UP L[facility]FT FOR TRANSPORT.
[2024-09-20] MEDS: Buprenorphine/Naloxone 8/2 mg FILM 1 FILM SUBLINGUAL (10:54)
== END 2024-09-20 12:05 | disposition home or self-care (01) | DRG 897 ==
LOC: HO.ED 09-15 10:36 → HO.EDOVER 09-15 10:56 → HO.IMC 09-15 15:30
PROVIDERS: Nurse Practitioner Family; Physician Assistant; Admitting Provider Internal Medicine; Emergency Provider Emergency Medicine; PCP Nurse Practitioner Family; Visit Provider Internal Medicine
DX: F10.139 Alcohol abuse with withdrawal, unspecified (principal); F11.20 Opioid dependence, uncomplicated; F10.129 Alcohol abuse with intoxication, unspecified; F17.210 Nicotine dependence, cigarettes, uncomplicated; Y90.8 Blood alcohol level of 240 mg/100 ml or more; J44.9 Chronic obstructive pulmonary disease, unspecified; G47.33 Obstructive sleep apnea (adult) (pediatric); L93.2 Other local lupus erythematosus; Z71.6 Tobacco abuse counseling; E83.42 Hypomagnesemia; Z68.35 Body mass index [BMI] 35.0-35.9, adult; R73.03 Prediabetes; E66.01 Morbid (severe) obesity due to excess calories; Z71.3 Dietary counseling and surveillance; Z79.899 Other long term (current) drug therapy
CPT/HCPCS: 36415; 80048; 80053; 80076; 80307; 81001; 82803; 82947; 83036; 83735; 85025; 93005; 94640; 94660; 99285; J1650; J2560; J3475

== ENCOUNTER → 2024-09-14 16:48 | Outpatient (BNV) | payer MEDICARE, MEDICAID, SELFPAY | PROVIDERS: Emergency Provider Emergency Medicine; PCP Nurse Practitioner Family; Visit Provider Internal Medicine Cardiovascular Disease | DX: I44.4 Left anterior fascicular block (principal) | CPT/HCPCS: 93010 ==

== ENCOUNTER → 2024-09-15 10:26 | Outpatient (BNV) | payer MEDICARE, MEDICAID, SELFPAY | PROVIDERS: Admitting Provider Internal Medicine; Emergency Provider Emergency Medicine; PCP Nurse Practitioner Family; Visit Provider Nurse Practitioner Family | DX: F10.930 Alcohol use, unspecified with withdrawal, uncomplicated (principal) | CPT/HCPCS: 99223; 99231; 99232; 99239 ==

== ENCOUNTER → 2024-09-15 10:26 | Outpatient (BNV) | payer MEDICARE, MEDICAID, SELFPAY | PROVIDERS: Admitting Provider Internal Medicine; Emergency Provider Emergency Medicine; PCP Nurse Practitioner Family; Visit Provider Nurse Practitioner Psychiatric/Mental Health | DX: F10.90 Alcohol use, unspecified, uncomplicated (principal) | CPT/HCPCS: 99222 ==